=== PATIENT | male | born 1965 | race Caucasian/White ===

== ENCOUNTER 2018-05-06 08:48 | Inpatient (IN) | payer OTHER ==
--- OUTSIDE RECORDS SUMMARY | 2018-05-06 08:50 | XMS REPORT ---
:1965 Author Organization [facility] Address [address] [place] [address] Dr. Jon [address] [place] [id number] Care Team Providers Name Role Phone WYATT PERKINS Unavailable Unavailable Problems This patient has no known problems. Allergies, Adverse Reactions, Alerts This patient has no known allergies or adverse reactions. Medications This patient has no known medications. Results Test Description Test Time Test Comments Text Results Atomic Results Result Comments AFB CULTURE + SMEAR 2017-12-09 13:17:00 Test Item Value Reference Range Comments CULTURE (BEAKER) (test msrd=3016) No acid-fast bacilli isolated in 42 days AFB SMEAR (BEAKER) (test obhr=461) No acid fast bacilli seen FUNGUS CULTURE + [id number] 11:30:00 Test Item Value Reference Range Comments CULTURE (BEAKER) (test No fungus isolated in 28 days nnlk=6432) FUNGUS SMEAR (BEAKER) (test No fungi seen njif=5328) ANAEROBIC [id number] 04:39:00 Test Item Value Reference Range Comments CULTURE (BEAKER) (test nhxr=4865) 1+ Finegoldia magna SURGICALLY OBTAINED CULTURE + GRAM [id number] 10:26:00 Test Item Value Reference Range Comments CULTURE (BEAKER) (test gyko=1869) Amikacin (test code=1) Ampicillin + Sulbactam (test code=6) Aztreonam (test code=32) Cefepime (test code=51) Cefoxitin (test code=68) Ceftazidime (test code=27) Ceftriaxone (test code=52) Ertapenem (test code=38) Gentamicin (test code=18) Levofloxacin (test code=22) Meropenem (test code=34) Nitrofurantoin (test code=23) Piperacillin + Tazobactam (test code=29) Tetracycline (test code=2) Tobramycin (test code=25) Trimethoprim + Sulfamethoxazole (test code=47) CULTURE (BEAKER) (test 1+ Proteus mirabilis mzti=4698) GRAM STAIN RESULT (BEAKER) 4+ WBCs (test ljea=3760) GRAM STAIN RESULT (BEAKER) <1+ gram positive (test pjex=813673) cocci in pairs BLOOD [id number] 05:02:00 Test Item Value Reference Range Comments CULTURE (BEAKER) (test dlgp=2908) No growth in 5 days BLOOD [id number] 05:02:00 Test Item Value Reference Range Comments CULTURE (BEAKER) (test rske=7768) No growth in 5 days POCT-GLUCOSE [id number] 12:56:00 Test Item Value Reference Range Comments POC-GLUCOSE METER (BEAKER) 127 mg/dL 70-110 TESTED AT [facility] [address] [facility] (test nlbb=3669) [facility] [address] TISSUE [id number] 11:24:00Surgical Pathology Report Case: [id number] Authorizing Provider: Oniel Dejesus MD Collected: 10/25/2017 1145 Ordering Location: [address] Received: 10/27/2017 0729 Service Pathologist: Sherin Lui MD Specimen: Soft Tissue, Other, Neck Cystic Wall A. NECK, CYST WALL, EXCISION:- INFLAMED CYST WALL - NEGATIVE FOR MALIGNANCY Signing Pathologist Direct Phone Line: [phone] signed by Sherin Lui MD on at 11:24 [id number] neck abscessNeck cystic wallThe specimen is received in a formalin-filled container labeled with the patient's information and labeled "neck cystic wall" and consists of an irregular fragment of membreno- whyte hemorrhagic tissue measuring 0.4 x 0.3 x 0.2 cm, submitted entirely in A1. CG/ew Sections show cyst wall composed of Fibrocollagenous and neural tissue with acute and chronic inflammation. No cyst lining (or) keratin (or) giant cell reaction is identified.CALCIUM, [id number] 06:20:00 Test Item Value Reference Range Comments CALCIUM IONIZED (BEAKER) (test wcta=482) 0.93 mmol/L 1.12-1.27 PH, BLOOD (BEAKER) (test khbb=0938) 7.36 [id number] 05:23:00 Test Item Value Reference Range Comments PHOSPHORUS (BEAKER) (test jkxj=329) 3.2 mg/dL 2.3-4.7 [id number] 05:23:00 Test Item Value Reference Range Comments MAGNESIUM (BEAKER) (test rylu=754) 1.8 mg/dL 1.6-2.6 BASIC METABOLIC [id number] 05:23:00 Test Item Value Reference Range Comments SODIUM (BEAKER) (test 137 meq/L 136-145 asrt=383) POTASSIUM (BEAKER) (test 3.6 meq/L 3.5-5.1 jirs=739) CHLORIDE (BEAKER) (test 100 meq/L 98-107 sqpv=331) CO2 (BEAKER) (test 29 meq/L 22-29 zmqd=064) BLOOD UREA NITROGEN 17 mg/dL 7-21 (BEAKER) (test gkrj=427) CREATININE (BEAKER) (test 1.03 mg/dL 0.57-1.25 rofz=242) GLUCOSE RANDOM (BEAKER) 125 mg/dL 70-105 (test dltl=745) CALCIUM (BEAKER) (test 9.2 mg/dL 8.4-10.2 jpjz=898) EGFR (BEAKER) (test 76 mL/min/1.73 sq m ESTIMATED GFR IS NOT kbnw=7180) ACCURATE CREATININE CLEARANCE IN PREDICTING GLOMERULAR FILTRATION RATE. ESTIMATED GFR IS NOT APPLICABLE FOR DIALYSIS PATIENTS. CBC W/PLT COUNT & AUTO [id number] 05:07:00 Test Item Value Reference Range Comments WHITE BLOOD CELL COUNT (BEAKER) (test hpwc=425) 3.9 K/ L 3.5-10.5 RED BLOOD CELL COUNT (BEAKER) (test kdlj=940) 4.12 M/ L 4.63-6.08 HEMOGLOBIN (BEAKER) (test gisu=249) 11.4 GM/DL 13.7-17.5 HEMATOCRIT (BEAKER) (test nuuw=656) 37.0 % 40.1-51.0 MEAN CORPUSCULAR VOLUME (BEAKER) (test daqi=504) 89.8 fL 79.0-92.2 MEAN CORPUSCULAR HEMOGLOBIN (BEAKER) (test 27.7 pg 25.7-32.2 dhvq=859) MEAN CORPUSCULAR HEMOGLOBIN CONC (BEAKER) (test 30.8 GM/DL 32.3-36.5 fovq=870) RED CELL DISTRIBUTION WIDTH (BEAKER) (test 15.8 % 11.6-14.4 hjlq=366) PLATELET COUNT (BEAKER) (test ugyn=023) 92 K/CU MM 150-450 MEAN PLATELET VOLUME (BEAKER) (test nsqy=860) 11.6 fL 9.4-12.4 NUCLEATED RED BLOOD CELLS (BEAKER) (test 0 /100 WBC 0-0 jkpx=227) NEUTROPHILS RELATIVE PERCENT (BEAKER) (test 60 % aqyy=926) LYMPHOCYTES RELATIVE PERCENT (BEAKER) (test 22 % uoyf=402) MONOCYTES RELATIVE PERCENT (BEAKER) (test 14 % gamn=800) EOSINOPHILS RELATIVE PERCENT (BEAKER) (test 4 % oohy=981) BASOPHILS RELATIVE PERCENT (BEAKER) (test 1 % fsne=751) NEUTROPHILS ABSOLUTE COUNT (BEAKER) (test 2.29 K/ L 1.78-5.38 vkef=680) LYMPHOCYTES ABSOLUTE COUNT (BEAKER) (test 0.83 K/ L 1.32-3.57 dsfx=343) MONOCYTES ABSOLUTE COUNT (BEAKER) (test pual=010) 0.54 K/ L 0.30-0.82 EOSINOPHILS ABSOLUTE COUNT (BEAKER) (test 0.15 K/ L 0.04-0.54 mmck=384) BASOPHILS ABSOLUTE COUNT (BEAKER) (test liol=521) 0.02 K/ L 0.01-0.08 IMMATURE GRANULOCYTES-RELATIVE PERCENT (BEAKER) 1 % 0-1 (test vkls=4641) POCT-GLUCOSE [id number] 21:34:00 Test Item Value Reference Range Comments POC-GLUCOSE METER (BEAKER) 164 mg/dL 70-110 TESTED AT [address] (test hiiw=7065) [facility] [address] POCT-GLUCOSE [id number] 17:56:00 Test Item Value Reference Range Comments POC-GLUCOSE METER (BEAKER) 119 mg/dL 70-110 TESTED AT [address] (test jecl=0263) [facility] [address] SPIN/CONCENTRATION [id number] 14:02:00 Test Item Value Reference Range Comments CONCENTRATION CHARGED (BEAKER) (test obzu=9199) Done POCT-GLUCOSE [id number] 12:51:00 Test Item Value Reference Range Comments POC-GLUCOSE METER (BEAKER) 133 mg/dL 70-110 TESTED AT [place] [id number] [facility] (test nfxz=5820) [facility] [address] POCT-GLUCOSE [id number] 08:32:00 Test Item Value Reference Range Comments POC-GLUCOSE METER (BEAKER) 139 mg/dL 70-110 TESTED AT [address] (test uzuj=8225) [facility] [address] CALCIUM, [id number] 06:56:00 Test Item Value Reference Range Comments CALCIUM IONIZED (BEAKER) (test yxnm=214) 0.82 mmol/L 1.12-1.27 PH, BLOOD (BEAKER) (test zeho=1404) 7.34 [id number] 05:16:00 Test Item Value Reference Range Comments PHOSPHORUS (BEAKER) (test cftr=117) 3.5 mg/dL 2.3-4.7 [id number] 05:16:00 Test Item Value Reference Range Comments MAGNESIUM (BEAKER) (test vqop=770) 1.9 mg/dL 1.6-2.6 BASIC METABOLIC [id number] 05:16:00 Test Item Value Reference Range Comments SODIUM (BEAKER) (test 136 meq/L 136-145 bdsk=488) POTASSIUM (BEAKER) (test 3.7 meq/L 3.5-5.1 qzrz=967) CHLORIDE (BEAKER) (test 100 meq/L 98-107 nyho=837) CO2 (BEAKER) (test 27 meq/L 22-29 eybf=911) BLOOD UREA NITROGEN 17 mg/dL 7-21 (BEAKER) (test zcwu=372) CREATININE (BEAKER) (test 1.16 mg/dL 0.57-1.25 zgwc=649) GLUCOSE RANDOM (BEAKER) 134 mg/dL 70-105 (test lvie=863) CALCIUM (BEAKER) (test 9.0 mg/dL 8.4-10.2 kaqp=105) EGFR (BEAKER) (test 67 mL/min/1.73 sq m ESTIMATED GFR IS NOT zpgh=6075) ACCURATE CREATININE CLEARANCE IN PREDICTING GLOMERULAR FILTRATION RATE. ESTIMATED GFR IS NOT APPLICABLE FOR DIALYSIS PATIENTS. Specimen slightly ictericCBC W/PLT COUNT & AUTO [id number] 04:50 :00 Test Item Value Reference Range Comments WHITE BLOOD CELL COUNT (BEAKER) (test dbgm=649) 4.7 K/ L 3.5-10.5 RED BLOOD CELL COUNT (BEAKER) (test peky=409) 4.18 M/ L 4.63-6.08 HEMOGLOBIN (BEAKER) (test miqr=633) 11.6 GM/DL 13.7-17.5 HEMATOCRIT (BEAKER) (test dmov=692) 37.8 % 40.1-51.0 MEAN CORPUSCULAR VOLUME (BEAKER) (test eemy=642) 90.4 fL 79.0-92.2 MEAN CORPUSCULAR HEMOGLOBIN (BEAKER) (test 27.8 pg 25.7-32.2 eirr=591) MEAN CORPUSCULAR HEMOGLOBIN CONC (BEAKER) (test 30.7 GM/DL 32.3-36.5 wded=586) RED CELL DISTRIBUTION WIDTH (BEAKER) (test 15.8 % 11.6-14.4 xwmq=612) PLATELET COUNT (BEAKER) (test ekeq=925) 88 K/CU MM 150-450 MEAN PLATELET VOLUME (BEAKER) (test ekkq=602) 12.1 fL 9.4-12.4 NUCLEATED RED BLOOD CELLS (BEAKER) (test 0 /100 WBC 0-0 hpas=062) NEUTROPHILS RELATIVE PERCENT (BEAKER) (test 59 % pgdl=275) LYMPHOCYTES RELATIVE PERCENT (BEAKER) (test 21 % fpam=333) MONOCYTES RELATIVE PERCENT (BEAKER) (test 15 % spvo=210) EOSINOPHILS RELATIVE PERCENT (BEAKER) (test 4 % yqes=984) BASOPHILS RELATIVE PERCENT (BEAKER) (test 0 % qmtp=996) NEUTROPHILS ABSOLUTE COUNT (BEAKER) (test 2.79 K/ L 1.78-5.38 mfoj=174) LYMPHOCYTES ABSOLUTE COUNT (BEAKER) (test 0.98 K/ L 1.32-3.57 ddmb=053) MONOCYTES ABSOLUTE COUNT (BEAKER) (test tnwd=544) 0.73 K/ L 0.30-0.82 EOSINOPHILS ABSOLUTE COUNT (BEAKER) (test 0.19 K/ L 0.04-0.54 jmnw=099) BASOPHILS ABSOLUTE COUNT (BEAKER) (test gvtt=025) 0.02 K/ L 0.01-0.08 IMMATURE GRANULOCYTES-RELATIVE PERCENT (BEAKER) 0 % 0-1 (test sldl=8377) POCT-GLUCOSE [id number] 21:14:00 Test Item Value Reference Range Comments POC-GLUCOSE METER (BEAKER) 169 mg/dL 70-110 TESTED AT [address] (test gqqw=3276) [place] [id number] POCT-GLUCOSE [id number] 19:08:00 Test Item Value Reference Range Comments POC-GLUCOSE METER (BEAKER) 146 mg/dL 70-110 TESTED AT [address] (test fptj=3393) [place] [id number] POCT-GLUCOSE [id number] 13:25:00 Test Item Value Reference Range Comments POC-GLUCOSE METER (BEAKER) 141 mg/dL 70-110 TESTED AT [address] (test ghrj=3297) [place] [id number] POCT-GLUCOSE [id number] 08:18:00 Test Item Value Reference Range Comments POC-GLUCOSE METER (BEAKER) 133 mg/dL 70-110 TESTED AT [address] (test ispn=7694) [place] [id number] CBC W/PLT COUNT & AUTO [id number] 06:08:00 Test Item Value Reference Range Comments WHITE BLOOD CELL COUNT (BEAKER) (test jztz=957) 4.9 K/ L 3.5-10.5 RED BLOOD CELL COUNT (BEAKER) (test peyo=559) 3.92 M/ L 4.63-6.08 HEMOGLOBIN (BEAKER) (test fyxy=376) 11.0 GM/DL 13.7-17.5 HEMATOCRIT (BEAKER) (test iktz=978) 35.2 % 40.1-51.0 MEAN CORPUSCULAR VOLUME (BEAKER) (test lyfq=965) 89.8 fL 79.0-92.2 MEAN CORPUSCULAR HEMOGLOBIN (BEAKER) (test 28.1 pg 25.7-32.2 izqr=712) MEAN CORPUSCULAR HEMOGLOBIN CONC (BEAKER) (test 31.3 GM/DL 32.3-36.5 inpa=724) RED CELL DISTRIBUTION WIDTH (BEAKER) (test 16.0 % 11.6-14.4 iobi=513) PLATELET COUNT (BEAKER) (test fnkm=293) 80 K/CU MM 150-450 MEAN PLATELET VOLUME (BEAKER) (test jonl=810) 11.4 fL 9.4-12.4 NUCLEATED RED BLOOD CELLS (BEAKER) (test 0 /100 WBC 0-0 nfjw=481) NEUTROPHILS RELATIVE PERCENT (BEAKER) (test 62 % tvym=743) LYMPHOCYTES RELATIVE PERCENT (BEAKER) (test 19 % ufux=572) MONOCYTES RELATIVE PERCENT (BEAKER) (test 15 % bvnq=162) EOSINOPHILS RELATIVE PERCENT (BEAKER) (test 3 % hhlm=053) BASOPHILS RELATIVE PERCENT (BEAKER) (test 0 % vyse=645) NEUTROPHILS ABSOLUTE COUNT (BEAKER) (test 3.03 K/ L 1.78-5.38 pusy=483) LYMPHOCYTES ABSOLUTE COUNT (BEAKER) (test 0.92 K/ L 1.32-3.57 mdee=900) MONOCYTES ABSOLUTE COUNT (BEAKER) (test qykj=197) 0.74 K/ L 0.30-0.82 EOSINOPHILS ABSOLUTE COUNT (BEAKER) (test 0.16 K/ L 0.04-0.54 vgsh=127) BASOPHILS ABSOLUTE COUNT (BEAKER) (test qnur=879) 0.01 K/ L 0.01-0.08 IMMATURE GRANULOCYTES-RELATIVE PERCENT (BEAKER) 1 % 0-1 (test lvrn=2865) [id number] 05:13:00 Test Item Value Reference Range Comments PHOSPHORUS (BEAKER) (test afms=375) 3.4 mg/dL 2.3-4.7 [id number] 05:13:00 Test Item Value Reference Range Comments MAGNESIUM (BEAKER) (test eqhz=739) 1.9 mg/dL 1.6-2.6 BASIC METABOLIC [id number] 05:13:00 Test Item Value Reference Range Comments SODIUM (BEAKER) (test 136 meq/L 136-145 ossi=701) POTASSIUM (BEAKER) (test 3.6 meq/L 3.5-5.1 ouqv=133) CHLORIDE (BEAKER) (test 102 meq/L 98-107 tixg=106) CO2 (BEAKER) (test 26 meq/L 22-29 tenm=741) BLOOD UREA NITROGEN 15 mg/dL 7-21 (BEAKER) (test ximm=853) CREATININE (BEAKER) (test 1.07 mg/dL 0.57-1.25 vsdp=820) GLUCOSE RANDOM (BEAKER) 134 mg/dL 70-105 (test zgcn=403) CALCIUM (BEAKER) (test 8.5 mg/dL 8.4-10.2 dupr=346) EGFR (BEAKER) (test 73 mL/min/1.73 sq m ESTIMATED GFR IS NOT jocn=8935) ACCURATE CREATININE CLEARANCE IN PREDICTING GLOMERULAR FILTRATION RATE. ESTIMATED GFR IS NOT APPLICABLE FOR DIALYSIS PATIENTS. Specimen slightly ictericHEPATIC FUNCTION [id number] 05:13:00 Test Item Value Reference Range Comments TOTAL PROTEIN (BEAKER) (test eqdp=774) 6.8 gm/dL 6.0-8.3 ALBUMIN (BEAKER) (test kejy=2789) 3.0 g/dL 3.5-5.0 BILIRUBIN TOTAL (BEAKER) (test ecnm=628) 2.9 mg/dL 0.2-1.2 BILIRUBIN DIRECT (BEAKER) (test fneb=676) 1.1 mg/dL 0.1-0.5 ALKALINE PHOSPHATASE (BEAKER) (test xuyp=301) 63 U/L 40-150 AST (SGOT) (BEAKER) (test lkso=691) 33 U/L 5-34 ALT (SGPT) (BEAKER) (test xbtp=810) 16 U/L 6-55 Specimen slightly ictericVANCOMYCIN LEVEL, [id number] 05:05:00 Test Item Value Reference Range Comments VANCOMYCIN TROUGH (BEAKER) (test qdpj=956) 20.0 ug/mL 10.0-20.0 Please draw 30 minutes prior to vancomycin due time. Do not administer if vancomycin trough is >20 mcg/mL. Thank you!POCT-GLUCOSE [id number] 20:11 :00 Test Item Value Reference Range Comments POC-GLUCOSE METER (BEAKER) 153 mg/dL 70-110 TESTED AT [facility] [address] [facility] (test xkgh=8178) [facility] [address] POCT-GLUCOSE [id number] 16:31:00 Test Item Value Reference Range Comments POC-GLUCOSE METER (BEAKER) 168 mg/dL 70-110 TESTED AT [facility] [address] [facility] (test tlnq=7390) [facility] [address] POCT-GLUCOSE [id number] 12:39:00 Test Item Value Reference Range Comments POC-GLUCOSE METER (BEAKER) 161 mg/dL 70-110 TESTED AT [facility] [address] [facility] (test tcdv=3913) [facility] [address] T4, [id number] 09:05:00 Test Item Value Reference Range Comments FREE T4 (BEAKER) (test rhfu=762) 1.00 ng/dL 0.70-1.48 T3, [id number] 09:05:00 Test Item Value Reference Range Comments T3 FREE (BEAKER) (test iujb=408) 2.33 pg/mL 1.71-3.71 CALCIUM, [id number] 07:37:00 Test Item Value Reference Range Comments CALCIUM IONIZED (BEAKER) (test ieru=786) 0.97 mmol/L 1.12-1.27 PH, BLOOD (BEAKER) (test plmd=6720) 7.38 [id number] 06:53:00 Test Item Value Reference Range Comments PHOSPHORUS (BEAKER) (test oaeu=080) 2.8 mg/dL 2.3-4.7 [id number] 06:53:00 Test Item Value Reference Range Comments MAGNESIUM (BEAKER) (test pndd=371) 1.6 mg/dL 1.6-2.6 BASIC METABOLIC [id number] 06:53:00 Test Item Value Reference Range Comments SODIUM (BEAKER) (test 133 meq/L 136-145 hlxf=286) POTASSIUM (BEAKER) (test 3.9 meq/L 3.5-5.1 xpvh=621) CHLORIDE (BEAKER) (test 101 meq/L 98-107 ojeb=903) CO2 (BEAKER) (test 25 meq/L 22-29 bxvm=645) BLOOD UREA NITROGEN 6 mg/dL 7-21 (BEAKER) (test zplm=176) CREATININE (BEAKER) (test 0.65 mg/dL 0.57-1.25 eddv=810) GLUCOSE RANDOM (BEAKER) 148 mg/dL 70-105 (test ezct=712) CALCIUM (BEAKER) (test 8.3 mg/dL 8.4-10.2 gbrt=880) EGFR (BEAKER) (test 130 mL/min/1.73 sq m ESTIMATED GFR IS NOT yjzs=7272) ACCURATE CREATININE CLEARANCE IN PREDICTING GLOMERULAR FILTRATION RATE. ESTIMATED GFR IS NOT APPLICABLE FOR DIALYSIS PATIENTS. Specimen slightly ictericHEPATIC FUNCTION [id number] 06:53:00 Test Item Value Reference Range Comments TOTAL PROTEIN (BEAKER) (test ficn=846) 7.1 gm/dL 6.0-8.3 ALBUMIN (BEAKER) (test zoqr=3529) 3.2 g/dL 3.5-5.0 BILIRUBIN TOTAL (BEAKER) (test ryxk=773) 3.2 mg/dL 0.2-1.2 BILIRUBIN DIRECT (BEAKER) (test susx=218) 0.9 mg/dL 0.1-0.5 ALKALINE PHOSPHATASE (BEAKER) (test dqrf=800) 66 U/L 40-150 AST (SGOT) (BEAKER) (test ceht=392) 27 U/L 5-34 ALT (SGPT) (BEAKER) (test cyut=786) 18 U/L 6-55 Specimen slightly ictericCBC W/PLT COUNT & AUTO [id number] 05:17 :00 Test Item Value Reference Range Comments WHITE BLOOD CELL COUNT (BEAKER) (test ayhm=647) 5.6 K/ L 3.5-10.5 RED BLOOD CELL COUNT (BEAKER) (test jgcm=361) 4.19 M/ L 4.63-6.08 HEMOGLOBIN (BEAKER) (test bpxw=212) 11.7 GM/DL 13.7-17.5 HEMATOCRIT (BEAKER) (test wjoe=388) 37.6 % 40.1-51.0 MEAN CORPUSCULAR VOLUME (BEAKER) (test jwxj=249) 89.7 fL 79.0-92.2 MEAN CORPUSCULAR HEMOGLOBIN (BEAKER) (test 27.9 pg 25.7-32.2 eftv=950) MEAN CORPUSCULAR HEMOGLOBIN CONC (BEAKER) (test 31.1 GM/DL 32.3-36.5 pszj=271) RED CELL DISTRIBUTION WIDTH (BEAKER) (test 15.9 % 11.6-14.4 zsla=700) PLATELET COUNT (BEAKER) (test icxx=928) 83 K/CU MM 150-450 MEAN PLATELET VOLUME (BEAKER) (test psmc=882) 12.1 fL 9.4-12.4 NUCLEATED RED BLOOD CELLS (BEAKER) (test 0 /100 WBC 0-0 dffn=530) NEUTROPHILS RELATIVE PERCENT (BEAKER) (test 69 % qeip=674) LYMPHOCYTES RELATIVE PERCENT (BEAKER) (test 16 % ahsr=339) MONOCYTES RELATIVE PERCENT (BEAKER) (test 12 % dqnr=646) EOSINOPHILS RELATIVE PERCENT (BEAKER) (test 2 % xsqe=349) BASOPHILS RELATIVE PERCENT (BEAKER) (test 0 % yvfm=566) NEUTROPHILS ABSOLUTE COUNT (BEAKER) (test 3.86 K/ L 1.78-5.38 lmxv=960) LYMPHOCYTES ABSOLUTE COUNT (BEAKER) (test 0.91 K/ L 1.32-3.57 wvya=149) MONOCYTES ABSOLUTE COUNT (BEAKER) (test lkcq=521) 0.64 K/ L 0.30-0.82 EOSINOPHILS ABSOLUTE COUNT (BEAKER) (test 0.11 K/ L 0.04-0.54 cftj=611) BASOPHILS ABSOLUTE COUNT (BEAKER) (test rpbq=169) 0.02 K/ L 0.01-0.08 IMMATURE GRANULOCYTES-RELATIVE PERCENT (BEAKER) 1 % 0-1 (test otts=4899) POCT-GLUCOSE [id number] 21:13:00 Test Item Value Reference Range Comments POC-GLUCOSE METER (BEAKER) 157 mg/dL 70-110 TESTED AT [facility] [address] [facility] (test xnic=1111) [place] [address] POCT-GLUCOSE [id number] 18:28:00 Test Item Value Reference Range Comments POC-GLUCOSE METER (BEAKER) 159 mg/dL 70-110 TESTED AT [facility] [address] [facility] (test ecmd=0491) [place] [address] U/S, [id number] 17:36:00Reason for exam:->posterior and right lateral neck, eval concern for infected cyst vs painful massFINAL REPORT TECHNIQUE: Focused grayscale ultrasound of the posterior neck. INDICATION: 51-year-old man with mass. COMPARISON: None. FINDINGS:5.1 x 2.9 x 2.9 cm hypoechoic lesionin the soft tissues of the posterior neck at the midline with posterior acoustic enhancement, internal echoes, a thick internal septation, and possible mural nodular component. IMPRESSION:5.1 cm complex cystic lesion in the soft tissues of the posterior neck with thick internal septation and possible mural nodular component. Differential considerations include abscess, hematoma, and necrotic/complex cystic mass. RECOMMENDATION:CT may be obtained for further characterization. Signed: Yokasta Cerna MDReport Verified Date/Time: 10/24/2017 17:36:55 Reading Location: [address] Ultrasound Reading Room CREATINE KINASE (CK), TOTAL AND [id number] 13:13:00 Test Item Value Reference Range Comments CREATINE KINASE TOTAL (BEAKER) (test gilf=161) 122 U/L 29-200 CREATINE KINASE-MB (BEAKER) (test xnvz=480) 1.0 ng/mL 0.0-6.6 CREATINE KINASE-MB INDEX (BEAKER) (test rlbp=378) 0.8 % CK-MB Reference Range:<6.7 Normal6.7-10.0 Borderline>10.0 AbnormalTROPONIN [id number] 13:13:00 Test Item Value Reference Range Comments TROPONIN I (BEAKER) (test gkyk=793) < ng/mL 0.00-0.03 Troponin I (TnI) levels must be interpreted in the context of the presenting symptoms and the clinical findings. Elevated TnI levels indicate myocardial damage, but are not specific for ischemic heart disease. Elevated TnI levels are seen in patients with other cardiac conditions (including myocarditis and congestive heart failure), and slight TnI elevations occur in patients with other conditions, including sepsis, renal failure, acidosis, acute neurological disease, and persistent tachyarrhythmia.HEMOGLOBIN [id number] 13:09:00 Test Item Value Reference Range Comments HEMOGLOBIN A1C (BEAKER) (test amoh=446) 9.0 % 4.3-6.1 RAD, CHEST, 1 VIEW, NON [id number] 12:58:00Reason for exam:->Right upper chest painShould this be performed at the bedside?->YesFINAL REPORT TECHNIQUE: Frontal chest radiograph dated 10/24/2017. CLINICAL HISTORY: Right upper chest pain COMPARISON STUDY: Chest radiograph dated 2015 FINDINGS: Lungs are clear. No pleural effusion or pneumothorax. Cardiomediastinal silhouette is normal in size. No pulmonary edema. No bone or soft tissue abnormalities are seen. IMPRESSION: Clear lungs. Signed: Sarika Guzmán MDReport Verified Date/Time: 10/24/2017 12:58:39 Reading Location: [facility] Radiology Reading Room CT, BRAIN, WITHOUT [id number] 12:46: 00Reason for exam:->Right arm paresthesiaFINAL REPORT CT head without contrast INDICATION: Right arm paresthesias TECHNIQUE: Axial noncontrast CT images through the head were obtained. This exam was performed according to our departmental dose optimization program which includes automated exposure control, adjustment of the mA and/or kV according to patient size and/or use of iterative reconstruction technique. COMPARISON: None available FINDINGS:There is scatter artifact from large body habitus. With this in mind, no hematoma, extra-axial collection, or mass effect is evident. There are no specific CT findings of acute infarct. Please note that CT is insensitive for early or small infarcts. Intracranial atherosclerotic calcifications are noted. There is no hydrocephalus or midline shift. The visualized sinuses, mastoid air cells, and orbits are unremarkable. There is partially imaged posterior upper neck subcutaneous induration with a prominent lymph node. The calvarium is intact. IMPRESSION: No acute hemorrhage or specific CT findings of acute infarct. Incompletely imaged posterior upper neck subcutaneous induration, possibly inflammatory dermal process. Advise correlation with ordered ultrasound. If there is persistent concern for acute abnormality, MRI is advised. Signed: Mary Pratt MDReport Verified Date /Time: 10/24/2017 12:46:53 Reading Location: [facility] Radiology Reading Room POCT-GLUCOSE [id number] 12:40:00 Test Item Value Reference Range Comments POC-GLUCOSE METER (BEAKER) 156 mg/dL 70-110 TESTED AT [address] (test qxom=4321) [facility] [address] T4, [id number] 12:09:00 Test Item Value Reference Range Comments FREE T4 (BEAKER) (test ztmd=482) 0.95 ng/dL 0.70-1.48 SEDIMENTATION [id number] 10:04:00 Test Item Value Reference Range Comments SEDIMENTATION RATE, ERYTHROCYTE (BEAKER) (test 59 mm/HR 0-20 smdg=518) POCT-GLUCOSE [id number] 09:02:00 Test Item Value Reference Range Comments POC-GLUCOSE METER (BEAKER) 151 mg/dL 70-110 TESTED AT [facility] [address] [facility] (test lqub=1578) [facility] [address] TSH/FREE T4 IF [id number] 07:38:00 Test Item Value Reference Range Comments THYROID STIMULATING HORMONE (BEAKER) (test 0.30 uIU/mL 0.35-4.94 efai=505) [id number] 07:36:00 Test Item Value Reference Range Comments PHOSPHORUS (BEAKER) (test omgr=860) 2.5 mg/dL 2.3-4.7 [id number] 07:36:00 Test Item Value Reference Range Comments MAGNESIUM (BEAKER) (test cauf=111) 1.7 mg/dL 1.6-2.6 BASIC METABOLIC [id number] 07:36:00 Test Item Value Reference Range Comments SODIUM (BEAKER) (test 136 meq/L 136-145 cdpj=958) POTASSIUM (BEAKER) (test 4.0 meq/L 3.5-5.1 crna=089) CHLORIDE (BEAKER) (test 104 meq/L 98-107 lxlr=407) CO2 (BEAKER) (test 25 meq/L 22-29 vnkx=579) BLOOD UREA NITROGEN 8 mg/dL 7-21 (BEAKER) (test lphl=974) CREATININE (BEAKER) (test 0.63 mg/dL 0.57-1.25 juxi=141) GLUCOSE RANDOM (BEAKER) 169 mg/dL 70-105 (test oafe=958) CALCIUM (BEAKER) (test 8.5 mg/dL 8.4-10.2 azlu=583) EGFR (BEAKER) (test 135 mL/min/1.73 sq m ESTIMATED GFR IS NOT jopv=[id number]) ACCURATE CREATININE CLEARANCE IN PREDICTING GLOMERULAR FILTRATION RATE. ESTIMATED GFR IS NOT APPLICABLE FOR DIALYSIS PATIENTS. LIPID [id number] 07:36:00 Test Item Value Reference Range Comments TRIGLYCERIDES (BEAKER) (test oegy=023) 83 mg/dL CHOLESTEROL (BEAKER) (test twuw=758) 129 mg/dL HDL CHOLESTEROL (BEAKER) (test ltbm=444) 29 mg/dL LDL CHOLESTEROL CALCULATED (BEAKER) (test 83 mg/dL kfcj=256) Triglyceride Reference Range: Low Risk <150 Borderline 150- 199 High Risk 200-499 Very High Risk >=500Cholesterol Reference Range: Low Risk <200 Borderline 200-239 High Risk > 240HDL Cholesterol Reference Range: Low Risk >=60 High Risk <40LDL Cholesterol Reference Range: Optimal <100 Near Optimal 100-129 Borderline 130-159 High 160-189 Very High >=190HEPATIC FUNCTION [id number] 07:36:00 Test Item Value Reference Range Comments TOTAL PROTEIN (BEAKER) (test edjz=964) 7.1 gm/dL 6.0-8.3 ALBUMIN (BEAKER) (test rofx=9450) 3.2 g/dL 3.5-5.0 BILIRUBIN TOTAL (BEAKER) (test zlpo=382) 1.9 mg/dL 0.2-1.2 BILIRUBIN DIRECT (BEAKER) (test uyfs=210) 0.7 mg/dL 0.1-0.5 ALKALINE PHOSPHATASE (BEAKER) (test mboh=455) 73 U/L 40-150 AST (SGOT) (BEAKER) (test prbs=710) 29 U/L 5-34 ALT (SGPT) (BEAKER) (test ictu=919) 21 U/L 6-55 CREATINE KINASE (CK), TOTAL AND [id number] 07:36:00 Test Item Value Reference Range Comments CREATINE KINASE TOTAL (BEAKER) (test vdlj=835) 106 U/L 29-200 CREATINE KINASE-MB (BEAKER) (test cjya=503) 0.8 ng/mL 0.0-6.6 CREATINE KINASE-MB INDEX (BEAKER) (test vfrw=046) 0.8 % CK-MB Reference Range:<6.7 Normal6.7-10.0 Borderline>10.0 AbnormalTROPONIN [id number] 07:31:00 Test Item Value Reference Range Comments TROPONIN I (BEAKER) (test zuju=353) < ng/mL 0.00-0.03 Troponin I (TnI) levels must be interpreted in the context of the presenting symptoms and the clinical findings. Elevated TnI levels indicate myocardial damage, but are not specific for ischemic heart disease. Elevated TnI levels are seen in patients with other cardiac conditions (including myocarditis and congestive heart failure), and slight TnI elevations occur in patients with other conditions, including sepsis, renal failure, acidosis, acute neurological disease, and persistent tachyarrhythmia.BUN AND [id number] 07:26:00 Test Item Value Reference Range Comments BLOOD UREA NITROGEN 9 mg/dL 7-21 (BEAKER) (test uyiq=592) CREATININE (BEAKER) (test 0.64 mg/dL 0.57-1.25 tyyg=344) EGFR (BEAKER) (test 132 mL/min/1.73 sq m ESTIMATED GFR IS NOT nlja=1467) ACCURATE CREATININE CLEARANCE IN PREDICTING GLOMERULAR FILTRATION RATE. ESTIMATED GFR IS NOT APPLICABLE FOR DIALYSIS PATIENTS. Specimen slightly ictericCBC W/PLT COUNT & AUTO [id number] 05:54 :00 Test Item Value Reference Range Comments WHITE BLOOD CELL COUNT (BEAKER) (test vbcu=893) 6.1 K/ L 3.5-10.5 RED BLOOD CELL COUNT (BEAKER) (test gtog=956) 4.05 M/ L 4.63-6.08 HEMOGLOBIN (BEAKER) (test grhv=372) 11.3 GM/DL 13.7-17.5 HEMATOCRIT (BEAKER) (test npwz=984) 35.8 % 40.1-51.0 MEAN CORPUSCULAR VOLUME (BEAKER) (test iptp=565) 88.4 fL 79.0-92.2 MEAN CORPUSCULAR HEMOGLOBIN (BEAKER) (test 27.9 pg 25.7-32.2 gvca=422) MEAN CORPUSCULAR HEMOGLOBIN CONC (BEAKER) (test 31.6 GM/DL 32.3-36.5 efdb=336) RED CELL DISTRIBUTION WIDTH (BEAKER) (test 15.8 % 11.6-14.4 foph=373) PLATELET COUNT (BEAKER) (test bilz=749) 87 K/CU MM 150-450 MEAN PLATELET VOLUME (BEAKER) (test bsya=551) 12.5 fL 9.4-12.4 NUCLEATED RED BLOOD CELLS (BEAKER) (test 0 /100 WBC 0-0 ciwb=646) NEUTROPHILS RELATIVE PERCENT (BEAKER) (test 64 % ksdg=875) LYMPHOCYTES RELATIVE PERCENT (BEAKER) (test 21 % cqtq=454) MONOCYTES RELATIVE PERCENT (BEAKER) (test 13 % vrcg=376) EOSINOPHILS RELATIVE PERCENT (BEAKER) (test 1 % gwrx=443) BASOPHILS RELATIVE PERCENT (BEAKER) (test 0 % svjg=204) NEUTROPHILS ABSOLUTE COUNT (BEAKER) (test 3.91 K/ L 1.78-5.38 afku=912) LYMPHOCYTES ABSOLUTE COUNT (BEAKER) (test 1.27 K/ L 1.32-3.57 sdzq=243) MONOCYTES ABSOLUTE COUNT (BEAKER) (test rclr=206) 0.78 K/ L 0.30-0.82 EOSINOPHILS ABSOLUTE COUNT (BEAKER) (test 0.07 K/ L 0.04-0.54 hsic=028) BASOPHILS ABSOLUTE COUNT (BEAKER) (test mufn=312) 0.02 K/ L 0.01-0.08 IMMATURE GRANULOCYTES-RELATIVE PERCENT (BEAKER) 0 % 0-1 (test evtn=8576) CREATINE KINASE (CK), TOTAL AND [id number] 00:32:00 Test Item Value Reference Range Comments CREATINE KINASE TOTAL (BEAKER) (test syir=666) 113 U/L 29-200 CREATINE KINASE-MB (BEAKER) (test anak=802) 1.1 ng/mL 0.0-6.6 CREATINE KINASE-MB INDEX (BEAKER) (test ekdw=609) 1.0 % CK-MB Reference Range:<6.7 Normal6.7-10.0 Borderline>10.0 AbnormalTROPONIN [id number] 00:32:00 Test Item Value Reference Range Comments TROPONIN I (BEAKER) (test twjs=935) 0.01 ng/mL 0.00-0.03 Troponin I (TnI) levels must be interpreted in the context of the presenting symptoms and the clinical findings. Elevated TnI levels indicate myocardial damage, but are not specific for ischemic heart disease. Elevated TnI levels are seen in patients with other cardiac conditions (including myocarditis and congestive heart failure), and slight TnI elevations occur in patients with other conditions, including sepsis, renal failure, acidosis, acute neurological disease, and persistent tachyarrhythmia.C-REACTIVE [id number] 00:25:00 Test Item Value Reference Range Comments C-REACTIVE PROTEIN (LIMAAKER) (test sguw=578) 3.09 mg/dL 0.00-0.50
--- OUTSIDE RECORDS SUMMARY | 2018-05-06 08:50 | XMS REPORT | Clinical Summary ---
:1965 Author Organization [facility] Address [address] [place] [address] Phone Care Team Providers Name Role Phone Unavailable Primary Care Provider Unavailable Allergies Active Allergy Reactions Severity Noted Date Comments Penicillins Other (See Comments) Medium 07/13/2016 Pt does not know. Was told so by his family. Salicylates Low 07/13/2016 Per patient. Current Medications Prescription Sig. Disp. Refills Start Date End Date Status potassium chloride SA Take 20 mEq by Active (K-DUR,KLOR-CON) 20 MEQ mouth daily. tablet sitaGLIPtin (JANUVIA) 50 Take 50 mg by Active MG tablet mouth daily. furosemide (LASIX) 20 MG Take 20 mg by Active tablet mouth 2 (two) times daily. hydroCHLOROthiazide Take 12.5 mg Active (HYDRODIURIL) 12.5 MG by mouth tablet daily. gabapentin (NEURONTIN) Take 1 capsule 60 capsule 0 10/28/2017 Active 100 MG capsule (100 mg total) 9 by mouth 2 (two) times daily. DULoxetine (CYMBALTA) 60 Take 1 capsule 30 tablet 0 07/19/2016 MG capsule (60 mg total) 7 by mouth daily. furosemide (LASIX) 20 MG Take 1 tablet 30 tablet 0 07/19/2016 tablet (20 mg total) 7 by mouth daily. gabapentin (NEURONTIN) Take 1 tablet 90 tablet 0 07/19/2016 600 MG tablet (600 mg total) 7 by mouth 3 (three) times daily. lisinopril-hydrochlorothi Take 1 tablet 30 tablet 0 07/19/2016 azide by mouth 7 (PRINZIDE,ZESTORETIC) daily. 20-12.5 mg per tablet metFORMIN (GLUCOPHAGE) Take 1 tablet 60 tablet 0 07/19/2016 1000 MG tablet (1,000 mg 7 total) by mouth 2 (two) times daily with breakfast and dinner. metoprolol (LOPRESSOR) Take 1 tablet 30 tablet 0 07/19/2016 100 MG tabletIndications: (100 mg total) 7 hypertension by mouth daily. levoFLOXacin (LEVAQUIN) Take 1 tablet 7 tablet 0 10/28/2017 500 MG tablet (500 mg total) 8 by mouth daily for 7 days. Active Problems Problem Noted Date Infected sebaceous cyst, posterior neck s/p I&D (10/25) 10/24/2017 Diabetes mellitus, type 2 (HCC) 10/24/2017 Essential hypertension 10/24/2017 Right arm pain 10/24/2017 Cellulitis, neck 10/23/2017 Morbid obesity (HCC) 07/13/2016 Resolved Problems Problem Noted Date Resolved Date Acute gastric ulcer 07/15/2016 10/24/2017 Hematemesis 07/13/2016 10/24/2017 Melena 07/13/2016 10/24/2017 Anemia due to acute blood loss 07/13/2016 10/24/2017 Hypotension 07/13/2016 10/24/2017 Hypovolemia due to hemorrhage 07/13/2016 10/24/2017 Encounters Date Type Specialty Care Team Description 10/25/2017 Anesthesia Event Bharat Seals MD 10/25/2017 Procedure Pass 10/25/2017 Surgery Oniel Dejesus DEBRIDEMENT/I&D,ALLEN Wei MD ND HEAD/NECK 10/23/2017 - Hospital Encounter General Internal Som Purcell Cellulitis, 10/28/2017 Medicine MD Elinor neck;Type 2 Jeet Liriano diabetes mellitus MD Po with complication, Tiffany, without long-term MD Chris current use of insulin (HCC);Essential hypertension;Morbid obesity (HCC);Right arm pain;Sebaceous cyst after 05/05/2017 Family History Medical History Relation Name Comments Arthritis Brother Alcohol abuse Father Arthritis Father Arthritis Mother Relation Name Status Comments Brother Father Mother Social History Tobacco Use Types Packs/Day Years Used Date Never Smoker Smokeless Tobacco: Never Used Tobacco Cessation: Counseling Given: No Sex Assigned at Date Recorded Not on file Last Filed Vital Signs Vital Sign Reading Time Taken Blood Pressure 137/74 10/28/2017 3:58 PM TAPE SEWING MACHINE OPERATOR Pulse 73 10/28/2017 3:58 PM TAPE SEWING MACHINE OPERATOR Temperature 35.8 C (96.4 F) 10/28/2017 3:58 PM TAPE SEWING MACHINE OPERATOR Respiratory Rate 18 10/28/2017 3:58 PM TAPE SEWING MACHINE OPERATOR Oxygen Saturation 94% 10/28/2017 3:58 PM TAPE SEWING MACHINE OPERATOR Inhaled Oxygen Concentration - - Weight 225.7 kg (497 lb 9.3 oz) 10/28/2017 4:32 AM TAPE SEWING MACHINE OPERATOR Height 203.2 cm (6' 8") 10/24/2017 1:46 AM TAPE SEWING MACHINE OPERATOR Body Mass Index 54.66 10/28/2017 4:32 AM TAPE SEWING MACHINE OPERATOR Plan of Treatment Not on file Procedures Procedure Name Priority Date/Time Associated Diagnosis Comments DEBRIDEMENT/I&D,WOUND 10/25/2017 9:45 AM POSTERIOR NECK ABSCESS HEAD/NECK TAPE SEWING MACHINE OPERATOR Special Needs (REQ TF) after 05/05/2017 Results EKG-SCANNED (10/30/2017 10:50 AM)POC-Glucose meter (10/28/2017 12:53 PM)Only the most recent of16 resultswithin the time period is included. Component Value Ref Range POC-Glucose Meter 127 (H)Comment: TESTED AT [address] 70 - 110 mg/[place] [address] Specimen Performing Laboratory Blood [address] [address] Calcium, Ionized (10/28/2017 4:38 AM)Only the most recent of3 resultswithin the time period is included. Component Value Ref Range Calcium, Ion 0.93 (L) 1.12 - 1.27 mmol/L pH, Blood 7.36 Specimen Performing Laboratory Blood [address] [address] CBC with platelet count + automated diff (10/28/2017 4:38 AM)Only the most recent of5 resultswithin the time period is included. Component Value Ref Range WBC 3.9 3.5 - 10.5 K/L RBC 4.12 (L) 4.63 - 6.08 M/L Hemoglobin 11.4 (L) 13.7 - 17.5 GM/DL Hematocrit 37.0 (L) 40.1 - 51.0 % MCV 89.8 79.0 - 92.2 fL MCH 27.7 25.7 - 32.2 pg MCHC 30.8 (L) 32.3 - 36.5 GM/DL RDW 15.8 (H) 11.6 - 14.4 % Platelets 92 (L) 150 - 450 K/CU MM MPV 11.6 9.4 - 12.4 fL nRBC 0 0 - 0 /100 WBC % Neutros 60 % % Lymphs 22 % % Monos 14 % % Eos 4 % % Baso 1 % # Neutros 2.29 1.78 - 5.38 K/L # Lymphs 0.83 (L) 1.32 - 3.57 K/L # Monos 0.54 0.30 - 0.82 K/L # Eos 0.15 0.04 - 0.54 K/L # Baso 0.02 0.01 - 0.08 K/L Immature Granulocytes-Relative 1 0 - 1 % Specimen Performing Laboratory Blood [address] [address] CBC with platelet count + automated diff (10/28/2017 4:38 AM)Only the most recent of5 resultswithin the time period is included. Specimen Performing Laboratory Blood Narrative The following orders were created for panel order CBC with platelet count + automated diff. Procedure Abnormality Status --------- ------ CBC with platelet count ...[[id number]]AbnormalFinal result Please view results for these tests on the individual orders. Phosphorus (10/28/2017 4:38 AM)Only the most recent of5 resultswithin the time period is included. Component Value Ref Range Phosphorus 3.2 2.3 - 4.7 mg/dL Specimen Performing Laboratory Blood [address] [address] Magnesium (10/28/2017 4:38 AM)Only the most recent of5 resultswithin the time period is included. Component Value Ref Range Magnesium 1.8 1.6 - 2.6 mg/dL Specimen Performing Laboratory Blood [address] [address] Basic Metabolic Panel (10/28/2017 4:38 AM)Only the most recent of5 resultswithin the time period is included. Component Value Ref Range Sodium 137 136 - 145 meq/L Potassium 3.6 3.5 - 5.1 meq/L Chloride 100 98 - 107 meq/L CO2 29 22 - 29 meq/L BUN 17 7 - 21 mg/dL Creatinine 1.03 0.57 - 1.25 mg/dL Glucose 125 (H) 70 - 105 mg/dL Calcium 9.2 8.4 - 10.2 mg/dL EGFR 76Comment: ESTIMATED GFR IS NOT ACCURATE mL/min/1.73 sq m CREATININE CLEARANCE IN PREDICTING GLOMERULAR FILTRATION RATE. ESTIMATED GFR IS NOT APPLICABLE FOR DIALYSIS PATIENTS. Specimen Performing Laboratory Blood [address] [address] Vancomycin level, trough (10/26/2017 4:24 AM) Component Value Ref Range Vancomycin Tr 20.0 10.0 - 20.0 ug/mL Specimen Performing Laboratory Blood - Arm, [address] [address] Narrative Please draw 30 minutes prior to vancomycin due time. Do not administer if vancomycin trough is >20 mcg/mL. Thank you! Hepatic function panel (10/26/2017 4:24 AM)Only the most recent of3 resultswithin the time period is included. Component Value Ref Range Protein, Total 6.8 6.0 - 8.3 gm/dL Albumin 3.0 (L) 3.5 - 5.0 g/dL Total Bilirubin 2.9 (H) 0.2 - 1.2 mg/dL Bilirubin, Direct 1.1 (H) 0.1 - 0.5 mg/dL Alkaline Phosphatase 63 40 - 150 U/L AST 33 5 - 34 U/L ALT 16 6 - 55 U/L Specimen Performing Laboratory Blood - Arm, [address] [address] Narrative Specimen slightly icteric Tissue Exam (10/25/2017 11:45 AM) Component Value Ref Range Case Report Surgical Pathology Report Case: [id number] Authorizing Provider:Oniel Dejesus MDCollected: 10/25/2017 1145 Ordering Location: [address] Received: 10/27/2017 0729 Service Pathologist: Sherin Lui MD Specimen:Soft Tissue, Other, Neck Cystic Wall DIAGNOSIS A. NECK, CYST WALL, EXCISION: - INFLAMED CYST WALL - NEGATIVE FOR MALIGNANCY Signing Pathologist Direct Phone Line: [phone] CPT Code(s) 62981 CLINICAL HISTORY Posterior neck abscess SPECIMEN SOURCE Neck cystic wall GROSS DESCRIPTION The specimen is received in a formalin-filled container labeled with the patient's information and labeled "neck cystic wall" and consists of an irregular fragment of membreno-whyte hemorrhagic tissue measuring 0.4 x 0.3 x 0.2 cm, submitted entirely in A1. CG/ew MICROSCOPIC DESCRIPTION Sections show cyst wall composed of Fibrocollagenous and neural tissue with acute and chronic inflammation. No cyst lining (or) keratin (or) giant cell reaction is identified. Specimen Performing Laboratory Tissue - Soft Tissue, Other [address] [address] AFB culture + smear (10/25/2017 11:40 AM) Component Value Ref Range Result No acid-fast bacilli isolated in 42 days AFB Smear No acid fast bacilli seen Specimen Performing Laboratory Abscess - Neck [address] [address] Anaerobic culture (10/25/2017 11:40 AM) Component Value Ref Range Result Result 1+ Finegoldia magna (A) Specimen Performing Laboratory Abscess - Neck [address] [address] Surgically obtained culture + gram stain (10/25/2017 11:40 AM) Component Value Ref Range Result Result 1+ Proteus mirabilis (A) Gram Stain Result 4+ WBCs Gram Stain Result <1+ gram positive cocci in pairs Specimen Performing Laboratory Abscess - Neck [address] [address] Narrative Organism Antibiotic Method Susceptibility Proteus mirabilis Amikacin <=2: Susceptible Proteus mirabilis Ampicillin + Sulbactam <=2: Susceptible Proteus mirabilis Aztreonam <=1: Susceptible Proteus mirabilis Cefepime <=1: Susceptible Proteus mirabilis Cefoxitin <=4: Susceptible Proteus mirabilis Ceftazidime <=1: Susceptible Proteus mirabilis Ceftriaxone <=1: Susceptible Proteus mirabilis Ertapenem <=0.5: Susceptible Proteus mirabilis Gentamicin <=1: Susceptible Proteus mirabilis Levofloxacin <=0.12: Susceptible Proteus mirabilis Meropenem 1: Susceptible Proteus mirabilis Piperacillin + Tazobactam <=4: Susceptible Proteus mirabilis Tetracycline >=16: Resistant Proteus mirabilis Tobramycin <=1: Susceptible Proteus mirabilis Trimethoprim + Sulfamethoxazole <=20: Susceptible Fungus culture + smear (10/25/2017 11:40 AM) Component Value Ref Range Result No fungus isolated in 28 days Fungus Smear No fungi seen Specimen Performing Laboratory Abscess - Neck [address] [address] SPIN/CONCENTRATION CHARGE (10/25/2017 11:40 AM) Component Value Ref Range Concentration charged Done Specimen Performing Laboratory Abscess - Neck [address] [address] T3, free (10/25/2017 4:31 AM) Component Value Ref Range T3, Free 2.33 1.71 - 3.71 pg/mL Specimen Performing Laboratory Blood - Arm, [address] [address] T4, free (10/25/2017 4:31 AM)Only the most recent of2 resultswithin the time period is included. Component Value Ref Range Free T4 1.00 0.70 - 1.48 ng/dL Specimen Performing Laboratory Blood - Arm, [address] [address] US neck (10/24/2017 4:26 PM) Specimen Performing Laboratory GE [employer] Narrative FINAL REPORT TECHNIQUE: Focused grayscale ultrasound of the posterior neck. INDICATION: 51-year-old man with mass. COMPARISON: None. FINDINGS: 5.1 x 2.9 x 2.9 cm hypoechoic lesion in the soft tissues of the posterior neck at the midline with posterior acoustic enhancement, internal echoes, a thick internal septation, and possible mural nodular component. IMPRESSION: 5.1 cm complex cystic lesion in the soft tissues of the posterior neck with thick internal septation and possible mural nodular component. Differential considerations include abscess, hematoma, and necrotic/complex cystic mass. RECOMMENDATION: CT may be obtained for further characterization. Signed: Yokasta Cerna MD Report Verified Date/Time:10/24/2017 17:36:55 Reading Location: [facility] [id number] Ultrasound Reading Room Procedure Note Interface, External Ris In - 10/24/2017 5:39 PM TAPE SEWING MACHINE OPERATOR FINAL REPORT TECHNIQUE: Focused grayscale ultrasound of the posterior neck. INDICATION: 51-year-old man with mass. COMPARISON: None. FINDINGS: 5.1 x 2.9 x 2.9 cm hypoechoic lesion in the soft tissues of the posterior neck at the midline with posterior acoustic enhancement, internal echoes, a thick internal septation, and possible mural nodular component. IMPRESSION: 5.1 cm complex cystic lesion in the soft tissues of the posterior neck with thick internal septation and possible mural nodular component. Differential considerations include abscess, hematoma, and necrotic/complex cystic mass. RECOMMENDATION: CT may be obtained for further characterization. Signed: Yokasta Cerna MD Report Verified Date/Time: 10/24/2017 17:36:55 Reading Location: [place] [id number] Ultrasound Reading Room Troponin I (10/24/2017 12:27 PM)Only the most recent of3 resultswithin the time period is included. Component Value Ref Range Troponin I <0.01 0.00 - 0.03 ng/mL Specimen Performing Laboratory Blood - Arm, [place] [address] Narrative Troponin I (TnI) levels must be interpreted [...] failure, acidosis, acute neurological disease, and persistent tachyarrhythmia. Creatine Kinase (CK), Total and MB (10/24/2017 12:27 PM)Only the most recent of3 resultswithin the time period is included. Component Value Ref Range Total CK 122 29 - 200 U/L CK-MB 1.0 0.0 - 6.6 ng/mL MB Relative Index 0.8 % Specimen Performing Laboratory Blood - Arm, Right [facility] [address] [place] [address], [place] [address] Narrative CK-MB Reference Range: <6.7Normal 6.7-10.0Borderline >10.0 Abnormal XR chest 1 view portable / bedside (10/24/2017 12:09 PM) Specimen Performing Laboratory GE RIS Narrative FINAL REPORT TECHNIQUE: Frontal chest radiograph dated 10/24/2017. CLINICAL HISTORY: Right upper chest pain COMPARISON STUDY: Chest radiograph dated 07/16/2016 FINDINGS: Lungs are clear. No pleural effusion or pneumothorax. Cardiomediastinal silhouette is normal in size. No pulmonary edema. No bone or soft tissue abnormalities are seen. IMPRESSION: Clear lungs. Signed: Vinod Guzmán MD Report Verified Date/Time:10/24/2017 12:58:39 Reading Location: [facility] Radiology Reading Room Procedure Note Interface, External Ris In - 10/24/2017 1:00 PM TAPE SEWING MACHINE OPERATOR FINAL REPORT TECHNIQUE: Frontal chest radiograph dated 10/24/2017. CLINICAL HISTORY: Right upper chest pain COMPARISON STUDY: Chest radiograph dated 07/16/2016 FINDINGS: Lungs are clear. No pleural effusion or pneumothorax. Cardiomediastinal silhouette is normal in size. No pulmonary edema. No bone or soft tissue abnormalities are seen. IMPRESSION: Clear lungs. Signed: Vinod Guzmán MD Report Verified Date/Time: 10/24/2017 12:58:39 Reading Location: [facility] Radiology Reading Room brain without IV contrast (10/24/2017 11:29 AM) Specimen Performing Laboratory GE RIS Narrative FINAL REPORT CT head without contrast INDICATION: Right arm paresthesias TECHNIQUE: Axial noncontrast CT images through the head were obtained. This exam was performed according to our departmental dose optimization program which includes automated exposure control, adjustment of the mA and/or kV according to patient size and/or use of iterative reconstruction technique. COMPARISON: None available FINDINGS: There is scatter artifact from large body habitus. [...] abnormality, MRI is advised. Signed: Mary Pratt MD Report Verified Date/Time:10/24/2017 12:46:53 Reading Location: [facility] Radiology Reading Room Procedure Note Interface, External Ris In - 10/24/2017 12:49 PM TAPE SEWING MACHINE OPERATOR FINAL REPORT CT head without contrast INDICATION: Right arm paresthesias TECHNIQUE: Axial noncontrast CT images through the head were obtained. This exam was performed according to our departmental dose optimization program which includes automated exposure control, adjustment of the mA and/or kV according to patient size and/or use of iterative reconstruction technique. COMPARISON: None available FINDINGS: There is scatter artifact from large body habitus. [...] abnormality, MRI is advised. Signed: Mary Pratt MD Report Verified Date/Time: 10/24/2017 12:46:53 Reading Location: [facility] Radiology Reading Room /Free T4 If Indicated (10/24/2017 4:02 AM) Component Value Ref Range TSH 0.30 (L) 0.35 - 4.94 uIU/mL Specimen Performing Laboratory Blood [address] [address] BUN and Creatinine (10/24/2017 4:02 AM) Component Value Ref Range BUN 9 7 - 21 mg/dL Creatinine 0.64 0.57 - 1.25 mg/dL EGFR 132Comment: ESTIMATED GFR IS NOT ACCURATE mL/min/1.73 sq m CREATININE CLEARANCE IN PREDICTING GLOMERULAR FILTRATION RATE. ESTIMATED GFR IS NOT APPLICABLE FOR DIALYSIS PATIENTS. Specimen Performing Laboratory Blood [address] [address] Narrative Specimen slightly icteric Sedimentation rate (10/24/2017 4:02 AM) Component Value Ref Range Sed Rate 59 (H) 0 - 20 mm/HR Specimen Performing Laboratory Blood [address] [address] Hemoglobin A1c (10/24/2017 4:02 AM) Component Value Ref Range Hemoglobin A1C 9.0 (H) 4.3 - 6.1 % Specimen Performing Laboratory Blood [address] [address] Lipid panel (10/24/2017 4:02 AM) Component Value Ref Range Triglycerides 83 mg/dL Cholesterol 129 mg/dL HDL 29 mg/dL LDL Calculated 83 mg/dL Specimen Performing Laboratory Blood [address] [address] Narrative Triglyceride Reference Range: Low Risk <150 [id number] High Risk 200-499 Very High Risk>=500 Cholesterol Reference Range: Low Risk <200 [id number] High Risk>240 HDL Cholesterol Reference Range: Low Risk >=60 High Risk <40 LDL Cholesterol Reference Range: Optimal<100 Near [id number] Very High >=190 Blood culture (10/23/2017 11:53 PM)Only the most recent of2 resultswithin the time period is included. Component Value Ref Range Result No growth in 5 days Specimen Performing Laboratory Blood - Arm, Right [address] [address] C-Reactive Protein (10/23/2017 11:52 PM) Component Value Ref Range CRP 3.09 (H) 0.00 - 0.50 mg/dL Specimen Performing Laboratory Blood - Arm, Right [facility] [address] [place] [address] ECG 12 lead (10/23/2017 9:45 PM) Specimen Performing Laboratory GE MUSE Narrative Ventricular Rate 83 BPM Atrial Rate 83 BPM P-R Interval 158 ms QRS Duration 92 ms Q-T Interval 366 ms QTC Calculation(Bazett) 430 ms P [place] 19 degrees R [place] 20 degrees T [place] 110 degrees Normal sinus rhythm T wave abnormality, consider lateral ischemia Abnormal ECG No previous ECGs available Confirmed by MD Zamudio Roberto ([id number]) on 10/24/2017 6:32:30 PM Procedure Note Interface, External Ris In - 10/24/2017 6:32 PM TAPE SEWING MACHINE OPERATOR Ventricular Rate 83 BPM Atrial Rate 83 BPM P-R Interval 158 ms QRS Duration 92 ms Q-T Interval 366 ms QTC Calculation(Bazett) 430 ms P [place] 19 degrees R [place] 20 degrees T [place] 110 degrees Normal sinus rhythm T wave abnormality, consider lateral ischemia Abnormal ECG No previous ECGs available Confirmed by MD Zamudio Roberto ([id number]) on 10/24/2017 6:32:30 PM after 05/05/2017
[2018-05-06] MEDS ORDERED: NA CHLORIDE 0.9% 1,000 ML ONE ×2 (09:29→10:40)
[2018-05-06 09:44] LABS: Absolute Lymphocytes (CBC) 3.2 K/uL (0.7-4.9); Absolute Monocytes 3.1 K/uL (0.1-1.3); Hematocrit 35.1 % (39.6-49.0); MCH 28.9 pg (27.0-35.0); MCV 90.9 fL (80-100); Monocytes % 8.8 % (3.3-12.3); RBC Red Blood Cell Count 3.86 M/uL (4.33-5.43)
[2018-05-06] MEDS ORDERED: LORazepam 2 MG/ML VIAL ONE ×2 (10:02→12:02)
--- NOTE | 2018-05-06 10:16 | RAD REPORT ---
EXAM DESCRIPTION: RAD - Chest Single View - 05/06/2018 9:52 am CLINICAL HISTORY: AMS, hypotensive Chest pain. COMPARISON: Chest Single View dated 03/12/2017; Chest Single View dated 11/16/2016; Abdomen 1 View ([facility]) dated 07/13/2016; Chest Single View dated 07/13/2016 FINDINGS: Portable technique and patient positioning limits examination quality. The lungs are grossly clear. The heart is upper limit normal size. No displaced fractures. IMPRESSION: No acute intrathoracic process suspected.
[2018-05-06 10:17] LABS: Albumin 2.8 g/dL (3.4-5.0); Bilirubin Direct 0.8 mg/dL (0-0.2); Bilirubin Total 4.7 mg/dL (0.2-1.0); CKMB Creatine Kinase MB 6.5 ng/mL (0.3-3.6); Potassium 4.6 mmol/L (3.5-5.1); Protein, Total 6.9 g/dL (6.4-8.2)
[2018-05-06 10:33] LABS: Blood Morphology Comment NOT SEEN (NOT SEEN); Platelet Estimate ADEQ
[2018-05-06 10:36] LABS: Urine Blood 2+ (NEG); Urine Glucose NEGATIVE (NEG); Urine Protein TRACE (NEG); Urine Specific Gravity >1.030 (1.005-1.030)
[2018-05-06 10:40] LABS: Barbiturates NEGATIVE (NEGATIVE); Benzodiazepines NEGATIVE (NEGATIVE); Cocaine NEGATIVE (NEGATIVE); METHAMPHETAM NEGATIVE (NEGATIVE); Methadone NEGATIVE (NEGATIVE); Opiates NEGATIVE (NEGATIVE); Phencyclidine NEGATIVE (NEGATIVE); THC Cannibis NEGATIVE (NEGATIVE)
[2018-05-06 10:47] LABS: Urine Bacteria >50 /HPF (NONE SEEN)
[2018-05-06 10:48] LABS: Urine Culture Reflex Order NOT NEEDED
[2018-05-06 10:52] LABS: Urine Amorphous Sediment 1+ /HPF (NONE SEEN)
--- NOTE | 2018-05-06 11:09 | RAD REPORT ---
EXAM DESCRIPTION: US - Abdomen Exam Limited - 05/06/2018 10:53 am CLINICAL HISTORY: abnormal LFTs, eval for gallbladder pathology COMPARISON: Abdomen Exam Limited dated 07/13/2016 FINDINGS: Examination is extremely limited by body habitus. Gallbladder was not well seen. Study is considered nondiagnostic for gallbladder/biliary tree pathology.
[2018-05-06] MEDS ORDERED: CEFTRIAXONE/SWI 1gm 0 GM/0 ML SYR ONE (11:22)
[2018-05-06] MEDS ORDERED: SODIUM CHLORIDE 0.9% 10ML INJ IV PRN (12:04)
[2018-05-06] MEDS ORDERED: ACETAMINOPHEN 650MG/RECT SUPP PR PRN (12:04)
[2018-05-06] MEDS ORDERED: ACETAMINOPHEN 500 MG TAB PO PRN (12:04)
[2018-05-06] MEDS ORDERED: WATER FOR INJ,STERILE 10 ML IM PRN (12:04)
[2018-05-06] MEDS ORDERED: IPRATROPIUM BROM 0.5MG/2.5ML NEB PRN (12:04)
[2018-05-06] MEDS ORDERED: ALBUTEROL 2.5 MG/3 ML NEB SOL NEB PRN (12:04)
[2018-05-06] MEDS ORDERED: ZIPRASIDONE MESYLA 20 MG/VIAL IM PRN (12:04)
[2018-05-06] MEDS ORDERED: ONDANSETRON 4 MG/2 ML VIAL IV PRN (12:04)
--- NOTE | 2018-05-06 12:14 | ER ---
Nurse's Notes [facility] Name: Colby Tilley Jr Age: 52 yrs Sex: Male : 1965 Arrival Date: 05/06/2018 Time: 08:51 Bed 3 Private MD: Tamiko Byrne Diagnosis: Altered mental status, unspecified;Urinary tract infection, site not specified;Sepsis;Acute kidney failure Presentation: 05/06 09:00 Presenting complaint: EMS states: pt family called EMS to assist because the pt who is sg normally [id number]\\[id number] is now altered and not acting normally since this morning. pt was a " little off, last night.". Transition of care: patient was not received from another setting of care. Onset of symptoms was May 06, 2018. Risk Assessment: Do you want to hurt yourself or someone else? Patient reports no desire to harm self or others. Initial Sepsis Screen: Does the patient meet any 2 criteria? RR > 20 per min. Altered Mental Status. Yes Does the patient have a suspected source of infection? No. Patient's initial sepsis screen is negative. Care prior to arrival: IV initiated. 20 GA, in the left hand, EMS unable to get VS due to patient refusing and being uncooperative. 09:00 Method Of Arrival: EMS: [facility] sg 09:00 Acuity: ZENAIDA 2 sg Historical: - Allergies: 09:21 Aspirin; sg 09:21 PENICILLINS; sg - Home Meds: :21 acetaminophen-codeine 300-30 mg Oral tab 1 tab every 6 hours [Active]; carvedilol 6.25 sg mg Oral tab 1 tab 2 times per day [Active]; - PMHx: 09:21 Diabetes - NIDDM; Hypertension; PVD; sg - PSHx: 09:21 Gastric Bypass; Knee surgery; sg - Immunization history:: Adult Immunizations unknown. - Social history:: Smoking status: unknown. - Ebola Screening: : Patient negative for fever greater than or equal to 101.5 degrees Fahrenheit, and additional compatible Ebola Virus Disease symptoms Patient denies exposure to infectious person Patient denies travel to an Ebola-affected area in the 21 days before illness onset No symptoms or risks identified at this time. - Unable to obtain history due to: altered mental status. Screenin: Abuse screen: Denies threats or abuse. Denies injuries from another. Nutritional sg screening: No deficits noted. Tuberculosis screening: No symptoms or risk factors identified. Never had TB. Fall Risk None identified. Assessment: 09:00 General: Appears ill, obese, unkempt, well nourished, Behavior is agitated, sg inappropriate for age, uncooperative. Pain: Unable to use pain scale. Patient is disoriented. Does not appear to understand pain scale. Neuro: Level of Consciousness is awake, confused, Oriented to person, Speech is slurred, Facial symmetry appears normal. Cardiovascular: Capillary refill is brisk in bilateral fingers Pulses are palpable in right radial artery and left radial artery. Respiratory: Airway is patent Respiratory effort is even, labored, Respiratory pattern is symmetrical, tachypnea Breath sounds are clear. GI: Abdomen is round obese. : No deficits noted. EENT: No deficits noted. Derm: Skin is intact, Skin is clammy, Skin is jaundiced, Skin temperature is cool Bruising that is green, on anterior aspect of left lateral abdomen and posterior aspect of left lateral abdomen. Musculoskeletal: No signs and/or symptoms reported regarding the musculoskeletal system. 09:21 Reassessment: pt refuses to allow us to swab his throat, pt pushing away swab, pt keeps iw saying "no, no, no, no". 09:24 Reassessment: family at bedside, pt seems to be agitated by family presence, keeps iw repeating "no, no, no, i need to get up", pt restless in bed. 09:30 Reassessment: Patient appears in no apparent distress at this time. pt family at sg bedside speaking with about pt history at home, pt mother reports pt has been acting unusual for about 3 days, worsening this morning so we called for help. pt male family member states "we are not really sure if he is over medicated or if it is his blood sugar that's giving him problems.". 10:55 Reassessment: pt o2 saturation noted to be 86 percent on room air, notified, sg pt placed to o2 via NRB at 15 lpm, 02 saturation improved to 94 percent, pt removes NRB bask so staff at [facility] holding mask above face, pt tolerating better than wearing mask. 11:46 Reassessment: pt transported to CT via stretcher, with VIRI Stahl and Swathi RN, and iw mammography technician, on monitor. 12:40 Reassessment: Patient appears in no apparent distress at this time. pt transported back from CT, pt tolerated exam poorly but images were obtained. 13:38 Reassessment: Patient appears in no apparent distress at this time. pt observed sg scratching at arm that IV access noted with IV cipro infusing, a reddened area noted around IV site, IV abx dc'd at this time, IV site flushed no issues noted, notified, orders received for IV benadryl 25 mg IVP. pt medicated as ordered. Reassessment: [facility] on phone, reports an elevated repeat lactate level, Michaela RN reports notifying and received orders for IV bolus until pt has received 3 liters IV NS total. Pt medicated, see EMAR. 14:20 Reassessment: Patient appears in no apparent distress at this time. IV site to R hand sg DC, IV site to right forearm DC due to infiltration, a new IV has been initiated. 14:53 Reassessment: Patient appears in no apparent distress at this time. pt brother updated sg on POC and awaiting ICU availability at this time, pt brother stated understanding. 15:05 Reassessment: Patient appears in no apparent distress at this time. IV that was just sg initiated appears infiltrated, red and puffy, IV dc'd, notified of the redness to the IV site, ordered to continue infusing IV Vanco, IV initiated and IV Vanc infusion continued. 15:10 Reassessment: Patient appears in no apparent distress at this time. ICU contacted, spoke with Lacy MEREDITH. ICU awaiting arrival of bariatric bed from [facility] at this time, prior to accepting pt to the ICU. 15:16 Reassessment: [facility] rep at facility with [facility] bed at this time. Vital Signs: 09:18 BP 115 / 87; Pulse 128; Resp 26; Temp 97.3; Pulse Ox 97% on R/A; Pain 0/10; sg 09:47 Pulse 113; Resp 19 S; Pulse Ox 97% on R/A; sg 10:42 Pulse 115; Resp 16 S; Pulse Ox 86% on R/A; sg 11:45 BP 98 / 45; Pulse 121; Resp 20 S; Pulse Ox 97% on R/A; iw 11:47 Weight 222.26 kg (R); iw 12:30 BP 113 / 60 RA Supine (auto/); Pulse 117 MON; Resp 28 S; Pulse Ox 96% on 100% sg Non-rebreather mask; 13:28 BP 105 / 66; Pulse 112 MON; Resp 26 S; Pulse Ox 97% on R/A; Pain 0/10; sg 14:39 BP 108 / 73; Pulse 120; Resp 22; Pulse Ox 96% on R/A; sg 09:47 pt removes BP cuff, pt uncooperative with BP and VS at this time sg 10:42 pt placed to NRB improved o2 to 96 percent at 15 lpm sg Vitals: 09:47 Cardiac Rhythm Assessment Sinus tach. sg 12:30 Cardiac Rhythm Assessment Sinus tach. sg 13:28 Cardiac Rhythm Assessment Sinus tach. sg 14:39 Cardiac Rhythm Assessment Sinus tach. sg ED Course: 08:51 Patient arrived in ED. rn 08:52 Simeon Lanza MD is Attending Physician. rn 08:57 [facility] [id number].. bd 09:00 Patient has correct armband on for positive identification. Bed in low position. Call sg light in reach. Side rails up X2. compliance monitor on. Pulse ox on. NIBP on. pt uncooperative for monitoring, constantly removes leads and BP cuff and o2 monitoring, despite staff attempt to put the monitors to pt. 09:14 Favio Garland, RN is Primary Nurse. sg 09:18 Triage completed. sg 09:19 Tamiko Byrne MD is Private Physician. sg 09:21 Initial lab(s) drawn, by me, sent to lab. Maintain EMS IV. Site clean \\T\\ dry. Gauge \\T\\ sg site: 20 G L Hand. IV is patent, is intact, with fluids infusing freely. 09:51 X-ray completed. Portable x-ray completed in exam room. Patient tolerated procedure la2 well. 09:52 Chest Single View XRAY In Process Unspecified. EDMS 10:00 Straight cath inserted, using sterile technique, Specimen obtained. Returned sona sg urine. Patient tolerated well. 15 Fr. 10:04 Notified ED physician of a critical lab result(s). Lactate=11.0. iw 10:19 Urine collected: straight cath specimen, cloudy, tea colored, Strep swab sent to lab. iw 10:42 US Abdomen Limited In Process Unspecified. EDMS 12:12 Marciano Tamez DO is Hospitalizing Provider. rn 12:20 CT Head Brain wo Cont In Process Unspecified. EDMS 12:20 CT Abd/Pelvis - Without Cont In Process Unspecified. EDMS 12:55 First set of blood cultures drawn by ED staff. sg 13:20 Second set of blood cultures drawn by ED staff. Inserted saline lock: 20 gauge in right sg forearm, using aseptic technique. Blood collected. 14:13 Echocardiogram with Doppler done by biomedical equipment tech. tc 14:40 Inserted saline lock: 20 gauge in left wrist, using aseptic technique. IV inserted by irma Berry RN. Administered Medications: 09:03 CANCELLED (Duplicate Order): NS 0.9% (30 ml/kg) 30 ml/kg IV at bolus once; Sepsis rn Protocol 09:40 Drug: NS 0.9% 1000 ml Route: IV; Rate: 1000 ml; Site: left hand; sg 11:40 Follow up: Response: No adverse reaction; IV Status: Completed infusion; IV Intake: sg 1000ml 10:10 Drug: Ativan 1 mg Route: IVP; Site: left hand; sg 10:45 Follow up: Response: No adverse reaction sg 10:45 Drug: NS 0.9% 1000 ml Route: IV; Rate: 1000 ml; Site: left hand; sg 11:50 Follow up: Response: No adverse reaction; IV Status: Completed infusion; IV Intake: sg 990ml 11:22 Not Given (Duplicate Order): Rocephin - (cefTRIAXone) 1 grams IVPB once over 30 mins; rn (mix in 50 mL NS) 12:00 Drug: Ativan 1 mg Route: IVP; Site: left hand; sv 12:20 Follow up: Response: No adverse reaction; Marked relief of symptoms sg 13:00 Drug: Cipro 400 mg Volume: 200 ml; Route: IVPB; Infused Over: 60 mins; Site: right sg forearm; 13:30 Follow up: Response: Adverse reaction, Physician notified; IV Status: Completed sg infusion; rash noted at IV site, and pt oberseved scratching side of head and the right forearm, orders recieved 13:48 Drug: NS 0.9% 1000 ml Route: IV; Rate: 1 bolus; Site: right forearm; sg 13:48 Drug: Benadryl 25 mg Route: IVP; Site: right forearm; sg 14:00 Drug: vancoMYCIN 1 grams Route: IVPB; Infused Over: 2 hrs; Site: right forearm; sg Point of Care Testing: Blood Glucose: 09:19 Blood Glucose: 255 mg/dL; sg Ranges: Intake: 11:40 IV: 1000ml; Total: 1000ml. sg 11:50 IV: 990ml; Total: 1990ml. sg Outcome: 12:13 Decision to Hospitalize by Provider. rn 16:13 Patient left the ED. bd Signatures: Dispatcher [employer] EDMS Fanny Dominguez Stephanie, RN RN sv Gay, Steven, RN RN sg Williams, Irene, RN RN iw Nieto, Roman, MD MD rn Callis, Tiffany, architectural project manager EKG Ttc Marilia Irby
--- NOTE | 2018-05-06 12:14 | EDPHYS ---
Physician Documentation [facility] Name: Colby Tilley Jr Age: 52 yrs Sex: Male : 1965 Arrival Date: 05/06/2018 Time: 08:51 Bed 3 Private MD: Tamiko Byrne ED Physician Simeon Lanza HPI: 05/06 09:03 This 52 yrs old Male presents to ER via Unassigned with complaints of altered rn mental status. 09:03 The patient presents with agitation, confusion, disorientation. Onset: The rn symptoms/episode began/occurred at an unknown time. Possible causes: unknown. Current symptoms: In the emergency department the patient's symptoms are unchanged from the initial presentation. The patient has experienced similar episodes in the past. Per EMS, called out for AMS, slight agitation, pt was confused and diaphoretic, not allowing them to take vitals, patient denies pain but very slow to respond.. Historical: - Allergies: :21 Aspirin; sg 09:21 PENICILLINS; sg - Home Meds: :21 acetaminophen-codeine 300-30 mg Oral tab 1 tab every 6 hours [Active]; carvedilol 6.25 sg mg Oral tab 1 tab 2 times per day [Active]; - PMHx: 09:21 Diabetes - NIDDM; Hypertension; PVD; sg - PSHx: :21 Gastric Bypass; Knee surgery; sg - Immunization history:: Adult Immunizations unknown. - Social history:: Smoking status: unknown. - Ebola Screening: : Patient negative for fever greater than or equal to 101.5 degrees Fahrenheit, and additional compatible Ebola Virus Disease symptoms Patient denies exposure to infectious person Patient denies travel to an Ebola-affected area in the 21 days before illness onset No symptoms or risks identified at this time. - Unable to obtain history due to: altered mental status. ROS: 09:03 Unable to obtain ROS due to altered mental status, patient being uncooperative. rn Exam: 09:03 Constitutional: This is a well developed, well nourished patient who is awake, rn somnolent, slow to respond, uncooperative Head/Face: Normocephalic, atraumatic. Eyes: Pupils equal round and reactive to light, extra-ocular motions intact. Lids and lashes normal. Conjunctiva and sclera are non-icteric and not injected. Cornea within normal limits. Periorbital areas with no swelling, redness, or edema. ENT: dry MM Neck: Trachea midline, no thyromegaly or masses palpated, and no cervical lymphadenopathy. Supple, full range of motion without nuchal rigidity, or vertebral point tenderness. No Meningismus. Cardiovascular: Regular rate and rhythm with a normal S1 and S2. No gallops, murmurs, or rubs. Normal PMI, no JVD. No pulse deficits. Respiratory: Lungs have equal breath sounds bilaterally, clear to auscultation and percussion. No rales, rhonchi or wheezes noted. No increased work of breathing, no retractions or nasal flaring. Abdomen/GI: Soft, non-tender. No distension or tympany. No guarding or rebound. No evidence of tenderness throughout. Back: No spinal tenderness. No costovertebral tenderness. Full range of motion. Skin: Warm, dry no evidence of cellulitis. MS/ Extremity: Pulses equal, no cyanosis. Neurovascular intact. Full, normal range of motion. Equal circumference. Neuro: Awake, uncooperative but follows simple commands, appears slightly agitated, able to support his weight, moves all 4 extremities, doesn't cooperate otherwise. Vital Signs: 09:18 BP 115 / 87; Pulse 128; Resp 26; Temp 97.3; Pulse Ox 97% on R/A; Pain 0/10; sg 09:47 Pulse 113; Resp 19 S; Pulse Ox 97% on R/A; sg 10:42 Pulse 115; Resp 16 S; Pulse Ox 86% on R/A; sg 11:45 BP 98 / 45; Pulse 121; Resp 20 S; Pulse Ox 97% on R/A; iw 11:47 Weight 222.26 kg (R); iw 12:30 BP 113 / 60 RA Supine (auto/); Pulse 117 MON; Resp 28 S; Pulse Ox 96% on 100% sg Non-rebreather mask; 13:28 BP 105 / 66; Pulse 112 MON; Resp 26 S; Pulse Ox 97% on R/A; Pain 0/10; sg 14:39 BP 108 / 73; Pulse 120; Resp 22; Pulse Ox 96% on R/A; sg 09:47 pt removes BP cuff, pt uncooperative with BP and VS at this time sg 10:42 pt placed to NRB improved o2 to 96 percent at 15 lpm sg MDM: 08:52 Patient medically screened. rn 10:23 ED course: Family here, states not sleeping well last few days, stays up playing video [email or web address] games, brother reports yesterday patient told him his urine was dark and has been having diarrhea. NO abd tenderness on exam, + elevated lactate/procalcitonin/WBC. Clear CXR.. 12:11 Differential Diagnosis: electrolyte abnormality, intracranial bleed, sepsis, UTI, rn volume depletion. Data reviewed: vital signs, nurses notes, lab test result(s), EKG, radiologic studies, CT scan, plain films, and as a result, I will admit patient. Counseling: I had a detailed discussion with the patient and/or guardian regarding: the historical points, exam findings, and any diagnostic results supporting the discharge/admit diagnosis, lab results, radiology results, the need for further work-up and treatment in the hospital. Response to treatment: the patient's symptoms have mildly improved after treatment, and as a result, I will admit patient. Admission orders: after a detailed discussion of the patient's condition and case, the admit orders are written by me. ED course: Pt with sepsis, + UTI on cath specimen, admitted to ICU under dr smith.. 05/06 08:53 Order name: Urine Culture rn 05/06 08:53 Order name: Urine Microscopic Only; Complete Time: 11: rn 05/06 08:53 Order name: Basic Metabolic Panel; Complete Time: 10:24 rn 05/06 08:53 Order name: Blood Culture Adult (2) rn 05/06 08:53 Order name: CBC with Diff; Complete Time: 11:08 rn 05/06 08:53 Order name: Ckmb; Complete Time: 10:24 rn 05/06 08:53 Order name: CPK; Complete Time: 10:24 rn 05/06 08:53 Order name: Lactate; Complete Time: 10:17 rn 05/06 08:53 Order name: LFT's; Complete Time: 10:24 rn 05/06 08:53 Order name: Lipase; Complete Time: 10:24 rn 05/06 08:53 Order name: Procalcitonin; Complete Time: 10:17 rn 05/06 08:53 Order name: Troponin (emerg Dept Use Only); Complete Time: 11:08 rn 05/06 08:53 Order name: Strep; Complete Time: 11:08 rn 05/06 10:17 Order name: Urine Drug Screen rn 05/06 10:18 Order name: Urine Drug Screen; Complete Time: 11:08 EDMS 05/06 10:27 Order name: Urine Dipstick--Ancillary (enter results) bd 05/06 10:27 Order name: Urine Dipstick-Ancillary; Complete Time: 11:08 EDMS 05/06 10:33 Order name: Manual Differential; Complete Time: 11:08 EDMS 05/06 10:44 Order name: Throat Culture EDMS 05/06 12:20 Order name: CBC with Automated Diff EDMS 05/06 12:20 Order name: CBC with Automated Diff EDMS 05/06 12:20 Order name: CKMB Creatine Kinase MB EDMS 05/06 12:20 Order name: CKMB Creatine Kinase MB EDMS 05/06 12:20 Order name: CKMB Creatine Kinase MB EDMS 05/06 12:20 Order name: Comprehensive Metabolic Panel EDMS 05/06 12:20 Order name: Comprehensive Metabolic Panel EDMS 05/06 12:20 Order name: Comprehensive Metabolic Panel EDMS 05/06 12:20 Order name: Comprehensive Metabolic Panel EDMS 05/06 12:20 Order name: Comprehensive Metabolic Panel EDMS 05/06 12:20 Order name: Comprehensive Metabolic Panel EDMS 05/06 08:53 Order name: Chest Single View XRAY; Complete Time: 10:17 rn 05/06 10:25 Order name: US Abdomen Limited; Complete Time: 11:32 rn 05/06 11:08 Order name: CT Head Brain wo Cont; Complete Time: 12:35 rn 05/06 11:08 Order name: CT Abd/Pelvis - Without Cont; Complete Time: 12:35 rn 05/06 12:20 Order name: Echo with Doppler EDMS 05/06 12:20 Order name: Creatine Phosphokinase EDMS 05/06 12:20 Order name: Creatine Phosphokinase EDMS 05/06 12:20 Order name: Creatine Phosphokinase EDMS 05/06 12:20 Order name: Lipid Profile EDMS 05/06 12:20 Order name: Lipid Profile EDMS 05/06 12:20 Order name: Magnesium EDMS 05/06 12:21 Order name: Magnesium EDMS 05/06 12:21 Order name: Magnesium EDMS 05/06 12:21 Order name: Magnesium EDMS 05/06 12:21 Order name: Magnesium EDMS 05/06 12:21 Order name: Magnesium EDMS 05/06 12:21 Order name: T4 Free EDMS 05/06 12:21 Order name: T4 Free EDMS 05/06 12:21 Order name: Troponin I EDMS 05/06 12:21 Order name: Troponin I EDMS 05/06 12:21 Order name: Troponin I EDMS 05/06 12:21 Order name: Thyroid Stimulating Hormone EDMS 05/06 12:21 Order name: Thyroid Stimulating Hormone EDMS 05/06 12:21 Order name: Lactate EDMS 05/06 12:21 Order name: Blood Culture EDMS 05/06 12:21 Order name: Urine Culture EDMS 05/06 12:36 Order name: AMMONIA rn 05/06 12:39 Order name: ABG rn 05/06 13:10 Order name: ABG Arterial Blood Gas; Complete Time: 13:26 EDMS 05/06 13:15 Order name: Ammonia; Complete Time: 13:26 EDMS 05/06 13:37 Order name: Lactate Sepsis 2 HR Follow-up EDMS 05/06 08:53 Order name: Accucheck; Complete Time: 09:20 rn 05/06 08:53 Order name: Cardiac monitoring; Complete Time: 09:20 rn 05/06 08:53 Order name: EKG - Nurse/Tech; Complete Time: 09:20 rn 05/06 08:53 Order name: IV Saline Lock - Large Bore; Complete Time: 09:20 rn 05/06 08:53 Order name: Labs collected and sent; Complete Time: 09:20 rn 05/06 08:53 Order name: O2 Per Protocol; Complete Time: 09:20 rn 05/06 08:53 Order name: O2 Sat Monitoring; Complete Time: 09:20 rn 05/06 08:53 Order name: Urine Dipstick-Ancillary (obtain specimen); Complete Time: 10:25 rn 08 12:20 Order name: CONS Pharmacy Consult EDMS 05/06 12:20 Order name: CONS Physician Consult EDMS 05/06 12:20 Order name: CONS Physician Consult EDMS 05/06 12:20 Order name: NPO EDMS 05/06 12:21 Order name: Respiratory Therapy Consult EDMS Administered Medications: 09:03 CANCELLED (Duplicate Order): NS 0.9% (30 ml/kg) 30 ml/kg IV at bolus once; Sepsis rn Protocol 09:40 Drug: NS 0.9% 1000 ml Route: IV; Rate: 1000 ml; Site: left hand; sg 11:40 Follow up: Response: No adverse reaction; IV Status: Completed infusion; IV Intake: sg 1000ml 10:10 Drug: Ativan 1 mg Route: IVP; Site: left hand; sg 10:45 Follow up: Response: No adverse reaction sg 10:45 Drug: NS 0.9% 1000 ml Route: IV; Rate: 1000 ml; Site: left hand; sg 11:50 Follow up: Response: No adverse reaction; IV Status: Completed infusion; IV Intake: sg 990ml 11:22 Not Given (Duplicate Order): Rocephin - (cefTRIAXone) 1 grams IVPB once over 30 mins; rn (mix in 50 mL NS) 12:00 Drug: Ativan 1 mg Route: IVP; Site: left hand; sv 12:20 Follow up: Response: No adverse reaction; Marked relief of symptoms sg 13:00 Drug: Cipro 400 mg Volume: 200 ml; Route: IVPB; Infused Over: 60 mins; Site: right sg forearm; 13:30 Follow up: Response: Adverse reaction, Physician notified; IV Status: Completed sg infusion; rash noted at IV site, and pt oberseved scratching side of head and the right forearm, orders recieved 13:48 Drug: NS 0.9% 1000 ml Route: IV; Rate: 1 bolus; Site: right forearm; sg 13:48 Drug: Benadryl 25 mg Route: IVP; Site: right forearm; sg 14:00 Drug: vancoMYCIN 1 grams Route: IVPB; Infused Over: 2 hrs; Site: right forearm; sg Point of Care Testing: Blood Glucose: 09:19 Blood Glucose: 255 mg/dL; sg Ranges: Critical Glucose Levels:Adult <50 mg/dl or >400 mg/dl <40 mg/dl or >180 mg/dl Disposition: 12:11 Critical Care:. rn Disposition: 05/06/18 12:13 Hospitalization ordered by Marciano Smith for Inpatient Admission. Preliminary diagnosis are Altered mental status, unspecified, Urinary tract infection, site not specified, Sepsis, Acute kidney failure. - Bed requested for Intensive Care Unit. - Status is Inpatient Admission. bd - Condition is Fair. - Problem is new. - Symptoms have improved. UTI on Admission? Yes Critical care time excluding procedures: 12:11 Critical care time: Bedside Care: 50 minutes, Consultation: 5 minutes, Family rn Intervention: 5 minutes. Total time: 60 minutes Signatures: Dispatcher [employer] EDMS Fanny Dominguez Swathi Gutierrez RN RN sv Gay, Steven, RN RN sg Nieto, Roman, MD MD learning facilitator: (The following items were deleted from the chart) 09:03 08:53 NS 0.9% (30 ml/kg) 30 ml/kg IV at bolus once; Sepsis Protocol ordered. rn rn 13:10 12:13 Hospitalization Ordered by Marciano Smith DO for Inpatient Admission. Preliminary bd diagnosis is Altered mental status, unspecified; Urinary tract infection, site not specified; Sepsis; Acute kidney failure. Bed requested for Intensive Care Unit. Status is Inpatient Admission. Condition is Fair. Problem is new. Symptoms have improved. UTI on Admission? Yes. rn 16:13 13:10 05/06/2018 12:13 Hospitalization Ordered by Marciano Smith DO for Inpatient bd Admission. Preliminary diagnosis is Altered mental status, unspecified; Urinary tract infection, site not specified; Sepsis; Acute kidney failure. Bed requested for Intensive Care Unit. Status is Inpatient Admission. Condition is Fair. Problem is new. Symptoms have improved. UTI on Admission? Yes. bd
--- NOTE | 2018-05-06 12:28 | RAD REPORT ---
EXAM DESCRIPTION: CT - Head Brain Wo Cont - 05/06/2018 12:19 pm CLINICAL HISTORY: CONFUSED Drowsiness COMPARISON: HEAD BRAIN W O CONTRAST dated 06/09/2014 TECHNIQUE: All CT scans are performed using dose optimization technique as appropriate and may inclu de automated exposure control or mA/KV adjustment according to patient size. FINDINGS: No intracranial hemorrhage, hydrocephalus or extra-axial fluid collection.No areas of brai n edema or evidence of midline shift. The paranasal sinuses and mastoids are essentially clear. The calvarium is intact. IMPRESSION: No acute intracranial abnormality.
--- NOTE | 2018-05-06 12:30 | RAD REPORT ---
EXAM DESCRIPTION: CT - Abdomen Pelvis Wo Contrast - 05/06/2018 12:19 pm CLINICAL HISTORY: Abdominal pain. diarrhea, AMS COMPARISON: No comparisons TECHNIQUE: CT imaging of the abdomen and pelvis was performed without contrast. Solid organ, bowel a nd vascular assessment is limited due to lack of IV and oral contrast. All CT scans are performed using dose optimization technique as appropriate and may include automated exposure control or mA/KV adjustment according to patient size. FINDINGS: The lower lung snyder are clear. The liver has a nodular contour compatible with mild cirrhosis. Hrvz-[id number] splenomegaly is seen . Cholecystectomy clips are present.Adrenal glands, pancreas and kidneys show no acute or concerning abnormality. No bowel obstruction, free air, free fluid or abscess. The appendix is normal. Prominent lumbosacral degenerative changes. IMPRESSION: Mild liver cirrhosis. A limited non-contrast examination was performed as detailed.
[2018-05-06] MEDS ORDERED: VANCOMYCIN 1 GM/250 ML BAG ONE (12:58)
[2018-05-06] MEDS ORDERED: CIPROFLOXACIN 400mg IV 400 MG/200 ML BAG IV ONE (12:58)
[2018-05-06] MEDS ORDERED: D5 0.45 NS 1,000 ML IV SCH (13:00)
[2018-05-06] MEDS ORDERED: NA CHLORIDE 0.9% 1,000 ML IV SCH ×2 (13:00→18:00)
[2018-05-06 13:08] LABS: Arterial Blood Carboxyhemoglob 1.5 % (0-1.5); Blood Gas Oxyhemoglobin 85.9 % (94-97); Blood O2 Saturation 88.1 % (92-98.5)
--- NOTE | 2018-05-06 13:17 | P.HP ---
Certification for Inpatient Patient admitted to: Inpatient With expected LOS: >2 Midnights Patient will require the following post-hospital care: None Practitioner: I am a practitioner with admitting privileges, knowledge of patient current condition, hospital course, and medical plan of care. Services: Services provided to patient in accordance with Admission requirements found in Title 42 Section 412.3 of the Code of Federal Regulations Patient History Date of Service: 05/06/18 Primary Care Provider: Dr. Perez Reason for admission: Altered mental status History of Present Illness: 52-year-old male presented to emergency room with altered mental status. Most information came from the family and ER physician. Over the last several days patient has been with increased fatigue. He has been sleeping a great deal of the time. Mother reports that the patient had fever, diarrhea. Patient with history of hypertension, diabetes, depression, and sleep apnea. His condition worsen with the increase agitation today. Patient was brought in to the emergency room. In the ER patient found to be hypotensive. He was also tachycardic. Initial blood pressure 91/58 with a heart rate 118. Patient was given IV fluids. Patient stabilize for further evaluation. CT head unremarkable for any acute changes. CT abdomen showed mild liver cirrhosis with splenomegaly. No acute findings noted. On lab white count 35.3. Percent neutrophils elevated at 82. Absolute neutrophils elevated, he had 5 bands. Lactic acid elevated at 11. Pro calcitonin elevated at 4.47. CPK 2059. CK MB 6.5 her, troponin 0.12. Urinalysis was positive for urinary tract infection. Urine drug screen negative. PH is 7.36 with a P O2 of 62. P CO2 of 31 and a bicarb 17. Patient has been stabilize. Chest x-ray unremarkable. When I saw the patient ER, he appeared agitated. Patient required Ativan for CT scan. Patient stable at this time. Blood pressures improved. Heart rate still tachycardic. Family reports patient takes multiple medications. Family reports that his kidney function had been normal on his last examination. Family reports that the patient had fever, diarrhea and not acting his normal mentation. Allergies Penicillins Adverse Reaction (Mild, Verified 03/12/17 16:56) Shortness of breath aspirin Adverse Reaction (Unknown, Verified 03/12/17 16:56) Shortness of breath Home medications list reviewed: Yes Home Medications: Carvedilol [Coreg*] 6.25 mg PO BID 10/18/16 Duloxetine HCl 60 mg PO DAILY 10/18/16 Furosemide [Lasix*] 20 mg PO DAILY 10/18/16 Gabapentin [Gralise] 600 mg PO TID 10/18/16 Lisinopril/Hydrochlorothiazide [Lisinopril-Hctz 20-12.5 mg Tab] 2 each PO DAILY 10/18/16 Metformin HCl [Metformin HCl ER] 1 tab PO BID 10/18/16 Pantoprazole [Protonix Tab*] 40 mg PO DAILY 10/18/16 Potassium Chloride 20 meq PO DAILY 10/18/16 Sitagliptin Phosphate [Januvia*] 50 mg PO DAILY 10/18/16 Codeine/APAP [Tylenol #3*] 1 tab PO Q6HP PRN 11/16/16 Cyclobenzaprine [Flexeril*] 10 mg PO BID PRN 11/16/16 Cyanocobalamin (Vitamin B-12) [Vitamin B-12] 5,000 mcg SL DAILY #30 tab.subl Levothyroxine Sodium [Synthroid] 0.125 mg PO DAILY #30 tablet 03/14/17 - Past Medical/Surgical History Diabetic: Yes -: Hypertension -: Peripheral vascular disease -: Diabetes mellitus type 2 -: Morbid obesity -: Hyperlipidemia -: Depression -: Obstructive sleep apnea -: Cirrhosis -: Diabetic neuropathy -: Venous insufficiency -: Gastric bypass -: Bilateral knee surgery -: "venous reflux" had small veins closed "years ago" Psychosocial/ Personal History: The patient lives with his brother. He has no children. He is disabled. - Family History Father -: Hypertension, Stroke - Social History Smoking Status: Never smoker Alcohol use: No CD- Drugs: No Caffeine use: No Place of Residence: Home Review of Systems General: Fever, Weakness, As per HPI Eyes: Unremarkable ENT: Unremarkable Respiratory: Shortness of Breath, As per HPI Cardiovascular: As per HPI Gastrointestinal: Diarrhea, As per HPI Genitourinary: As per HPI Musculoskeletal: As per HPI Integumentary: As per HPI Neurological: Weakness, As per HPI Lymphatics: Unremarkable Physical Examination - Physical Exam General: Confused, Other (Patient sedated with medication. Patient was agitated earlier prior to CT scan. Patient confused) HEENT: Atraumatic, Normocephalic, Other (Dry mucous membranes) Neck: Supple, No Thyromegaly Respiratory: Clear to auscultation bilaterally, Normal air movement Cardiovascular: Abnormal pulses (Sinus tachycardia ) Gastrointestinal: Normal bowel sounds, Soft and benign, Non-distended, No tenderness, No masses, No rebound, No guarding Musculoskeletal: No erythema, No tenderness, No warmth Integumentary: No erythema, No warmth, No cyanosis, Other (Chronic venous insufficiency noted to the lower extremities) Neurological: Normal strength at 5/5 x4 extr, Normal tone, Abnormal affect ( Confused and agitated) - Studies Laboratory Data (last 24 hrs) 05/06/18 09:00: WBC 35.3 H*, Hgb 11.2 L, Hct 35.1 L, Plt Count 98 L 05/06/18 09:00: Sodium 137, Potassium 4.6, BUN 83 H, Creatinine 3.00 H, Glucose 248 H, Total Bilirubin 4.7 H, AST 135 H, ALT 84 H, Alkaline Phosphatase 75, Lipase 172 Microbiology Data (last 24 hrs): 05/06/18 10:15 Throat Group A Streptococcus Rapid Screen - Final Assessment and Plan - Problems (Diagnosis) (1) Severe sepsis Current Visit: Yes Status: Acute Plan: Patient with severe sepsis with noted toxic encephalopathy. Likely UTI with bacteremia. Will start vancomycin and Cipro. Will continue IV fluids aggressively. Patient stable this time not requiring vasopressor. Will consult pulmonology for ICU management. Will consult nephrology to address acute renal injury. Will consult cardiology to address elevated troponin likely related to severe sepsis. Will reassess this afternoon. Blood cultures and urine cultures obtained. Patient may require restraints. (2) Toxic encephalopathy Current Visit: Yes Status: Acute Plan: Likely from UTI and bacteremia. Will continue above. Patient on IV antibiotic therapy and fluids (3) Diabetes mellitus Current Visit: Yes Status: Chronic Plan: Will check A1c. Will provide sliding scale. We will hold his oral medication at this time. Qualifiers: Diabetes mellitus type: type 2 Diabetes mellitus intermediate accountant insulin use: without intermediate accountant use Diabetes mellitus complication status: with other specified complication Qualified Code(s): E11.69 - Type 2 diabetes mellitus with other specified complication (4) Diabetic neuropathy Current Visit: Yes Status: Chronic Plan: Will hold his pain medication at this time. Qualifiers: Diabetes mellitus type: type 2 Diabetes mellitus complication detail: diabetic polyneuropathy Qualified Code(s): E11.42 - Type 2 diabetes mellitus with diabetic polyneuropathy (5) Acute renal failure Current Visit: Yes Status: Acute Plan: Likely from severe sepsis, hypertension, volume depletion and UTI. Continue as above. Nephrology consulted. (6) Elevated troponin Current Visit: Yes Status: Acute Plan: Likely from severe sepsis. Cardiology consulted. Will check echocardiogram to evaluate for cardiomyopathy. (7) Depression Current Visit: Yes Status: Acute Plan: Will hold medication at this time. Qualifiers: Depression Type: unspecified Qualified Code(s): F32.9 - Major depressive disorder, single episode, unspecified (8) Obstructive sleep apnea Current Visit: Yes Status: Suspected Plan: Patient likely has sleep apnea. Will have pulmonology assess. Will maintain sats above 90%. (9) Cirrhosis Current Visit: Yes Status: Suspected Plan: Liver cirrhosis noted on CT scan. Likely from fatty liver. Qualifiers: Hepatic cirrhosis type: unspecified hepatic cirrhosis Ascites presence: without ascites Qualified Code(s): K74.60 - Unspecified cirrhosis of liver (10) Splenomegaly Current Visit: Yes Status: Chronic Plan: Likely from cirrhosis. (11) Thrombocytopenia Current Visit: Yes Status: Acute Plan: Likely from severe sepsis. Will monitor closely (12) Hypertension Onset Date: 11/19/16 Current Visit: No Status: Chronic Plan: Will hold his blood pressure medication at this time. Qualifiers: Hypertension type: essential hypertension Qualified Code(s): I10 - Essential (primary) hypertension (13) Hypotension Onset Date: 03/14/17 Current Visit: No Status: Acute Plan: Continue with IV fluids. Hold blood pressure medication at this time. Qualifiers: Hypotension type: other hypotension type Qualified Code(s): I95.89 - Other hypotension Discharge Plan: Home Plan to discharge in: Greater than 2 days - Advance Directives Does patient have a Living Will: No Does patient have a Durable POA for Healthcare: No - Code Status/Comfort Care Code Status Assessed: Yes Code Status: Full Code Time Spent Managing Pts Care (In Minutes): 55
[2018-05-06] MEDS ORDERED: NA CHLORIDE 0.9% 500 ML ONE ×2 (13:44→13:54)
[2018-05-06] MEDS ORDERED: DIPHENHYDRAMINE 50 MG/ML VIAL ONE (13:44)
[2018-05-06] MEDS ORDERED: VANCOMYCIN/NS 1 gm 1 GM/250 ML BAG IV ONE (14:00)
[2018-05-06] MEDS: Meropenem 1,000 MG in NA CHLORIDE 0.9% 100 ML IV SCH ×2 (15:00→20:25)
[2018-05-06] MEDS ORDERED: INSULIN -REGULAR HUMAN 50 UNIT/0.5 ML ML SQ SCH ×2 (16:30→20:15)
--- NOTE | 2018-05-06 17:06 | EKG ---
Test Date: 2018-05-06 Test Time: 09:07:56 Steam Conditioning Operator: SWG MEASUREMENT RESULTS: Intervals: Rate: 122 WA: 140 QRSD: 88 QT: 334 QTc: 475 Java: P: 46 WA: 140 QRS: 53 T: 153 INTERPRETIVE STATEMENTS: Sinus tachycardia with occasional premature ventricular complexes ST & T wave abnormality, consider lateral ischemia Abnormal ECG Compared to ECG 10/23/2017 15:31:09 Ventricular premature complex(es) now present Sinus rhythm no longer present ST (T wave) deviation still present Possible ischemia still present Electronically Signed On 05-06-18 17:05:16 CDT by Hilario Kirkland
--- NOTE | 2018-05-06 17:08 | P.INFCA ---
Sepsis Focused Assessment - Sepsis Screen Result Severe Sepsis: Positive Septic Shock: Negative - Evaluation Current stage of sepsis: Severe sepsis - Vital Signs Reviewed: Yes Temperature: 98.6 F Heart rate: 115 Blood Pressure: 109/73 Respiratory Rate: 23 O2 Sat by Pulse Oximetry: 95 - Examination Date exam was performed: 05/06/18 Time exam was performed: 17:07 Heart: Tachycardia Lungs: Clear bilaterally Peripheral pulses: 3+ Normal Peripheral pulse location: Pedal Capillary refill: Other (Not able to be performed.) Skin examination: Normal turgor, Other (Chronic venous changes to lower ext. )
--- NOTE | 2018-05-06 17:22 | ECHO ---
HEIGHT: 6 ft 8 in WEIGHT: 489 lb 15.991 oz DATE OF STUDY: 05/06/[address]: Marciano Tamez DO 2-DIMENSIONAL: YES M.MODE: YES DOPPLER: YES COLOR FLOW: YES TDS: YES PORTABLE: YES DEFINITY: BUBBLE STUDY: DIAGNOSIS: SEVERE SEPSIS, ELEVATED TROPONIN, EVALUATE FOR CARDIOMYOPATHY CARDIAC HISTORY: CATHERIZATION: NO SURGERY: NO PROSTHETIC VALVE: NO PACEMAKER: NO MEASUREMENTS (cm) DIASTOLIC (NORMALS) SYSTOLIC (NORMALS) IVSd 1.1 (0.6-1.2) LA Diam 4.4 (1.9-4.0) LVEF 63% LVIDd 5.4 (3.5-5.7) LVIDs 3.6 (2.0-3.5) %FS 34% LVPWd 1.1 (0.6-1.2) Ao Diam 3.2 (2.0-3.7) 2 DIMENSIONAL ASSESSMENT: RIGHT ATRIUM: NORMAL LEFT ATRIUM: DILATED RIGHT VENTRICLE: NORMAL LEFT VENTRICLE: NORMAL TRICUSPID VALVE: NORMAL MITRAL VALVE: NORMAL PULMONIC VALVE: NORMAL AORTIC VALVE: NORMAL PERICARDIAL EFFUSION: NONE AORTIC ROOT: NORMAL LEFT VENTRICULAR WALL MOTION: NORMAL DOPPLER/COLOR FLOW: IMPAIRED LEFT VENTRICULAR RELAXATION. COMMENTS: NORMAL LEFT VENTRICULAR EJECTION FRACTION. DILATED LEFT ATRIUM. IMPAIRED LEFT VENTRICULAR RELAXATION. TECHNOLOGIST: GALINA REVELES
[2018-05-06] MEDS: ENOXAPARIN 30 MG/0.3 ML SQ SCH (17:55)
[2018-05-06] MEDS: LORazepam 2 MG/ML VIAL IV PRN ×2 (17:56→22:51)
[2018-05-06] MEDS: LACTULOSE 20 GM/30 ML UCUP PO SCH (20:05)
[2018-05-06] MEDS ORDERED: Ciprofloxacin 200mg IV 200 MG/100 ML IV.SOLN. IV SCH (21:00)
[2018-05-06] MEDS ORDERED: Meropenem 1000 MG/VIAL IV SCH (21:00)
[2018-05-06] MEDS ORDERED: NACHLORIDE 0.45% 1,000 ML IV ONE (21:05)
[2018-05-06] MEDS: NACHLORIDE 0.45% 1,000 ML with NA BICARB 8.4% 75 MEQ IV SCH ×2 (21:23)
--- NOTE | 2018-05-06 22:50 | CON ---
Date of Consultation: 05/06/2018 Reason For Consultation: Elevated BUN and creatinine, fluid management. History Of Present Illness: This is a 52-year-old gentleman. All the information has been obtained from the record as the patient's altered mental status. The patient had significant past medical his tory of diabetes, COPD, peripheral vascular disease, morbid obesity, depression, obstructive sleep ap chacha, cirrhosis, the patient had came to the emergency room because of altered mental status. Apparen tly, the patient is being fatigued, more sleepy over the last few days. When he arrived to the emerg ency room, blood pressure was on the lower side, systolic down to the 90, tachycardic. The patient r eceived 2 L of IV fluid bolus and blood pressure stabilized around 100 to 110. Primary workup showed elevated BUN and creatinine, for that reason, we have been consulted. Also, showed UTI, elevated ca lcitonin, suspect urosepsis. Reviewing the record for the patient, the patient is apparently being on metformin, lisinopril with h ydrochlorothiazide, and potassium supplement. Reviewing the record in our hospital, the patient's kidney function back in February within normal limit, creatinine 0.6, GFR above 90. Medical History: 1.Hypertension. 2.Peripheral vascular disease. 3.Diabetes, complicated with neuropathy. 4.Venous stasis. 5.Morbid obesity, status post gastric bypass. 6.Cirrhosis. 7.Bilateral knee surgery. Family History: Positive for CVA and hypertension. Social History: Not obtainable. Review of Systems: Not obtainable. Home Medications: 1.Carvedilol. 2.Duloxetine. 3.Lasix 20. 4.Gabapentin 600 t.i.d. 5.Lisinopril and hydrochlorothiazide. 6.Metformin. 7.Pantoprazole. 8.KCl. 9.Codeine. 10.Vitamin C. 11.Levothyroxine. Allergies: TO PENICILLIN AND ASPIRIN. Physical Examination: General: When I saw the patient, the patient was lying in bed, snoring. Vital Signs: Blood pressure of 121/57, pulse of 107, afebrile. Chest: Clear to auscultation. Heart: S1, S2. Regular. Tachycardic. Abdomen: Morbidly obese. Extremities: Venous stasis bilateral, plus edema. Laboratory Data: WBC 35.3, H and H 11.2/35.1, platelets of 98. Sodium 137, potassium 4.6, bicarb 15 , chloride 105, BUN 83, creatinine of 3, GFR 22, glucose 248, calcium 8.4. AST 135, ALT 84, CK 2059. Troponin 0.1, albumin 2.8. Procalcitonin 4.7. ABG; pH 7.36, CO2 31, O2 62. Saturation of 88. Uri nalysis; specific gravity more than 1.030, RBC 20, WBC 50. Urine drug screen was negative. Hepatiti s B negative. Imaging: Chest x-ray showing cardiomegaly. Assessment And Plan: 1.Acute kidney injury, secondary to poor perfusion acute tubular necrosis, toxic acute tubular necro sis, superimposed, with Lasix, metformin, and DARY inhibitor, superimposed with diuresis, nonoliguric, mild acidosis, no hyperkalemia. 2.I am going to continue fluid resuscitation, will be aggressive with the IV fluid. 3.Obstructive uropathy has been ruled out by the CT. We will continue to monitor the patient. 4.I am going to go ahead and send for protein creatinine. 5.Agree with holding metformin, Lasix, DARY inhibitor, and hydrochlorothiazide. 6.Acidosis, secondary to renal failure/lactic acidosis. Last sepsis secondary to poor perfusion. H igh anion gap. 7.I switched IV fluid to normal saline and we will monitor the patient. I do not see the need for b icarb drip for the time being. 8.Urosepsis. The patient was started on vancomycin and meropenem. We will follow up culture. 9.Hypertension, currently blood pressure on the lower side. Hold all blood pressure medication donna cially with the acute kidney injury. 10.Rhabdomyolysis, nonoliguric, questionable if it is related to seizure. CT was negative. We will start aggressive hydration. Given the acute kidney injury and the severe contraction, I am going to start the patient on the bicarb drip. For that reason, we will place it on half-normal with 1-1/2 a mp of bicarb and run it at 100 per hour and we will follow up. Our goal to establish urine pH above 6.5-7. 11.Urinary tract infection as above. 12.Altered mental status secondary to urosepsis. CT was negative. We will follow up with the perlita pate, possible secondary to hepatic encephalopathy with the elevated ammonia. I agree with the cherylo se. We will follow up. Thank you Dr. Tamez for allowing us to participate in the care of your patient. STEFFANY Voice ID: [id number] Report ID: [id number]
[2018-05-06] MEDS: INSULIN -REGULAR HUMAN 50 UNIT/0.5 ML ML SQ SCH (23:48)
[2018-05-07 02:06] LABS: Urine Protein/Creatinine Ratio 0.23 ratio (<0.15)
[2018-05-07 02:38] LABS: CKMB Creatine Kinase MB 10.7 ng/mL (0.3-3.6)
[2018-05-07 05:07] LABS: Absolute Lymphocytes (CBC) 1.9 K/uL (0.7-4.9); Absolute Monocytes 1.5 K/uL (0.1-1.3); Absolute Neutrophil 18.4 K/uL (1.8-8.0); Basophils % 0.2 % (0-1.3); Hematocrit 27.5 % (39.6-49.0); Lymphocytes % 8.8 % (15.3-44.8); MCH 29.9 pg (27.0-35.0); MCV 89.8 fL (80-100); MPV 11.5 fL (7.6-11.3); Monocytes % 6.7 % (3.3-12.3); RBC Red Blood Cell Count 3.06 M/uL (4.33-5.43)
[2018-05-07] MEDS: INSULIN -REGULAR HUMAN 50 UNIT/0.5 ML ML SQ SCH ×3 (05:27→17:50)
[2018-05-07 05:43] LABS: Albumin 2.4 g/dL (3.4-5.0); Bilirubin Total 2.1 mg/dL (0.2-1.0); Ferritin 150.6 ng/mL (26-388); Folic Acid, (Folate) 18.3 ng/mL (3.1-17.5); Potassium 4.8 mmol/L (3.5-5.1); Thyroid Stimulating Hormone 0.73 uIU/mL (0.36-3.74)
[2018-05-07 05:58] LABS: Phosphorus 0.9 mg/dL (2.5-4.9)
[2018-05-07] MEDS ORDERED: POTASSIUM PHOS 30 MM in NA CHLORIDE 0.9% 500 ML IV ONE (06:25)
[2018-05-07] MEDS: NACHLORIDE 0.45% 1,000 ML with NA BICARB 8.4% 75 MEQ IV SCH ×4 (07:41→17:49)
[2018-05-07] MEDS: LACTULOSE 20 GM/30 ML UCUP PO SCH ×3 (08:23→21:54)
[2018-05-07] MEDS: LORazepam 2 MG/ML VIAL IV PRN ×2 (08:39→17:51)
[2018-05-07] MEDS ORDERED: PANTOPRAZOLE 40 MG INJ IVP SCH (09:00)
[2018-05-07] MEDS: Meropenem 1,000 MG in NA CHLORIDE 0.9% 100 ML IV SCH ×2 (09:14→16:39)
[2018-05-07] MEDS: VANCOMYCIN 2 GM in NA CHLORIDE 0.9% 500 ML IVPB SCH ×2 (10:10→21:55)
--- NOTE | 2018-05-07 10:33 | CON ---
History Of Present Illness: Mr. Tilley is in the hospital because of obtundation. He has been foun d to have an ammonia level that is elevated. An ammonia level of 101 was recorded at one point. He has cirrhosis, I am not sure what the cause of the cirrhosis is. He has morbid obesity. He has janes l insufficiency and likely has an infection. When he came to the hospital, I think he was basically brought by other people, I do not think it was his choice to come or I do not think he came on his ow n power. There has been fever and diarrhea as well as lethargy and confusion. He has a past history of hypertension, diabetes, depression, sleep apnea, cirrhosis. He has a very elevated white blood c ell count with a left shift. I am not entirely sure what the source of infection is. The throat cul ture does reveal group A strep and a urine reveals a high colony count. I do not think we know what organism it is. We know it is gram-negative rods and the working diagnosis is that he has underlying cirrhosis with new onset urinary tract sepsis. I am asked to see him because of an elevated troponi n. The patient is not able to give any history himself, but the old records indicate that there has not been a history of CAD. He has had an echocardiogram, reveals normal ejection fraction, dilated l eft atrium. It is similar to older echocardiograms. He is not able to tell us whether he has had ch est pain. Physical Examination: General: He is 6 feet 8 inches, 489 pounds, obtunded, not intubated. Heart: Reveals a heart rate of about 110. It is regular. There is no gallop or murmur. Abdomen: Soft, very obese. I cannot palpate any organs or see if there is shifting dullness. Extremities: Reveal edema distal pulses diminished. Laboratory Data: A CT of the abdomen reveals liver cirrhosis. There is no mention of masses or flui d in the abdomen, ascites. His troponin levels have been 0.17, 0.12, and 0.09. CKs and CK-MBs are b oth high. Impression: My impression is that these muscle enzymes are elevated because of septicemia, cirrhosis , poor tissue perfusion. If the patient has an acute coronary syndrome, I think we can cross that of f the list of the causes of his mild troponin elevation. SH/MODL Voice ID: [id number] Report ID: [id number]
[2018-05-07] MEDS ORDERED: LORazepam 2 MG/ML VIAL IV ONE (11:40)
--- NOTE | 2018-05-07 13:03 | P.CNS ---
Date of Consult: 05/07/18 Reason for Consult: Altered mental status Primary Care Provider: Dr. Perez Chief Complaint: Altered mental status History of Present Illness: Patient is 52 years of age admitted with altered mental status came on rather suddenly admitted with the possibility of sepsis.. Patient is unresponsive he probably has underlying obstructive sleep apnea patient does snore has some apneic episodes very agitated possible cirrhosis of the liver Allergies Penicillins Adverse Reaction (Mild, Verified 03/12/17 16:56) Shortness of breath aspirin Adverse Reaction (Unknown, Verified 03/12/17 16:56) Shortness of breath Home Medications: Acetaminophen with Codeine [Acetaminophen-Cod #4 Tablet] 1 each PO Q6H PRN 05/06 Alogliptin Benzoate [Alogliptin] 1 tab PO DAILY 05/06/18 Cyclobenzaprine [Flexeril*] 1 tab PO TID 05/06/18 Empagliflozin [Jardiance] 10 mg PO DAILY 05/06/18 Furosemide [Lasix] 20 mg PO DAILY 05/06/18 Lisinopril/Hydrochlorothiazide [Lisinopril-Hctz 20-12.5 mg Tab] 2 each PO DAILY 05/06/18 Potassium Chloride 10 meq PO BID 05/06/18 Pregabalin [Lyrica] 50 mg PO BID 05/06/18 Vortioxetine Hydrobromide [Trintellix] 20 mg PO DAILY 05/06/18 - Past Medical/Surgical History Diabetic: Yes -: Hypertension -: Peripheral vascular disease -: Diabetes mellitus type 2 -: Morbid obesity -: Hyperlipidemia -: Depression -: Obstructive sleep apnea -: Cirrhosis -: Diabetic neuropathy -: Venous insufficiency -: Gastric bypass -: Bilateral knee surgery -: "venous reflux" had small veins closed "years ago" Psychosocial/ Personal History: The patient lives with his brother. He has no children. He is disabled. - Family History Father Medical History: Hypertension, Stroke - Social History Smoking Status: Unknown if ever smoked Alcohol use: No CD- Drugs: No Caffeine use: No Place of Residence: Home Review of Systems is unable to be obtained Physical Examination Temp Pulse Resp BP Pulse Ox 97.9 F 122 H 25 H 145/74 H 93 05/07/18 04:00 05/07/18 12:00 05/07/18 12:00 05/07/18 12:00 05/07/18 11:00 General: Unresponsive Neck: Supple Respiratory: Clear to auscultation bilaterally, Diminished Cardiovascular: No edema, Normal S1 S2 Gastrointestinal: Normal bowel sounds, Soft and benign - Problems (1) Altered mental status Current Visit: Yes Status: Acute Plan: Patient is 52 years of age admitted with altered mental status he is unresponsive vital signs satisfactory his abnormal renal function and LFTs hypoxic with hypercarbia elevated white count patient has cardiomegaly blood cultures positive for gram-negative rods patient is on vancomycin and meropenem patient has renal failure most likely prerenal and is improving with IV fluids Qualifiers: Altered mental status type: coma
--- NOTE | 2018-05-07 13:13 | RAD REPORT ---
EXAM DESCRIPTION: RAD - Abdomen 1 View (KUB) - 05/07/2018 12:35 pm CLINICAL HISTORY: NG tube placement COMPARISON: None. FINDINGS: Motion degraded examination shows no visible NG tube. [id number] spans from the lower m ost lung snyder to the iliac crests.
[2018-05-07] MEDS ORDERED: VANCOMYCIN 2 GM in NA CHLORIDE 0.9% 500 ML IVPB SCH (14:00)
[2018-05-07] MEDS ORDERED: NA CHLORIDE 0.9% 500 ML IV ONE (14:00)
[2018-05-07 14:14] LABS: Urine Appearance CLOUDY; Urine Bilirubin NEGATIVE (NEG); Urine Blood 1+ (NEG); Urine Color YELLOW; Urine Glucose 2+ (NEG); Urine Protein NEGATIVE (NEG)
[2018-05-07 14:20] LABS: Urine Microscopic Reflex ORDER UMIC
--- NOTE | 2018-05-07 14:26 | P.PN ---
Subjective Date of Service: 05/07/18 Primary Care Provider: Dr. Perez Chief Complaint: Altered mental status Subjective: Other (Still with altered mental status.) Physical Examination - Vital Signs Temperature: 97.9 F Blood Pressure: 145/74 Pulse: 122 Respirations: 25 Pulse Ox (%): 93 - Physical Exam General: Confused HEENT: Atraumatic Neck: Supple Respiratory: Clear to auscultation bilaterally, Normal air movement Cardiovascular: Abnormal pulses (Sinus tachycardia) Gastrointestinal: Normal bowel sounds, Soft and benign, Non-distended, No masses , No rebound, No guarding Musculoskeletal: No erythema, No tenderness, No warmth Integumentary: No erythema, No warmth, No cyanosis, Other (Chronic venous changes to the lower extremity) Neurological: Normal strength at 5/5 x4 extr, Normal tone - Studies Microbiology Data (last 24 hrs): 05/06/18 10:15 Throat Group A Streptococcus Rapid Screen - Final Medications List Reviewed: Yes Assessment & Plan - Problems (Diagnosis) (1) Severe sepsis Onset Date: 05/07/18 Current Visit: Yes Status: Acute Plan: Patient with severe sepsis with noted toxic encephalopathy. Likely UTI with bacteremia. Patient also noted with elevated ammonia with cirrhosis. Will continue with lactulose. Patient may require neurology evaluation. Will see how he responds with medication. Patient on antibiotic therapy. Continue IV fluids. Case discussed with pulmonology and nephrology. Renal function improved. White count improved. Continue with medication for agitation (2) Toxic encephalopathy Onset Date: 05/07/18 Current Visit: Yes Status: Acute Plan: Likely from UTI and bacteremia. There may be a component of hepatic encephalopathy as well. Will monitor closely. (3) Diabetes mellitus Onset Date: 05/07/18 Current Visit: Yes Status: Chronic Plan: Will provide sliding scale. We will hold his oral medication at this time. Qualifiers: Diabetes mellitus type: type 2 Diabetes mellitus assisted insulin use: without terminal carman use Diabetes mellitus complication status: with other specified complication Qualified Code(s): E11.69 - Type 2 diabetes mellitus with other specified complication (4) Diabetic neuropathy Onset Date: 05/07/18 Current Visit: Yes Status: Chronic Plan: Will hold his pain medication at this time. Qualifiers: Diabetes mellitus type: type 2 Diabetes mellitus complication detail: diabetic polyneuropathy Qualified Code(s): E11.42 - Type 2 diabetes mellitus with diabetic polyneuropathy (5) Acute renal failure Onset Date: 05/07/18 Current Visit: Yes Status: Acute Plan: Likely from severe sepsis, hypertension, volume depletion and UTI. Fluids adjusted by Nephrology. Case discussed with nephrology. (6) Elevated troponin Onset Date: 05/07/18 Current Visit: Yes Status: Acute Plan: Likely from severe sepsis. Cardiology consulted. Will check echocardiogram to evaluate for cardiomyopathy. (7) Depression Onset Date: 05/07/18 Current Visit: Yes Status: Acute Plan: Will hold medication at this time. Qualifiers: Depression Type: unspecified Qualified Code(s): F32.9 - Major depressive disorder, single episode, unspecified (8) Obstructive sleep apnea Onset Date: 05/07/18 Current Visit: Yes Status: Suspected Plan: Patient likely has sleep apnea. Will have pulmonology assess. Will maintain sats above 90%. (9) Cirrhosis Onset Date: 05/07/18 Current Visit: Yes Status: Suspected Plan: Liver cirrhosis noted on CT scan. Patient with hepatic encephalopathy. Continue lactulose. Patient may require NG tube. Qualifiers: Hepatic cirrhosis type: unspecified hepatic cirrhosis Ascites presence: without ascites Qualified Code(s): K74.60 - Unspecified cirrhosis of liver (10) Splenomegaly Onset Date: 05/07/18 Current Visit: Yes Status: Chronic Plan: Likely from cirrhosis. (11) Thrombocytopenia Onset Date: 05/07/18 Current Visit: Yes Status: Acute Plan: Likely from severe sepsis. Will monitor closely (12) Hypertension Onset Date: 05/07/18 Current Visit: Yes Status: Chronic Plan: Will provide IV medication as needed. Qualifiers: Hypertension type: essential hypertension Qualified Code(s): I10 - Essential (primary) hypertension (13) Hypotension Onset Date: 05/07/18 Current Visit: Yes Status: Acute Plan: Continue with IV fluids. Blood pressure improved. Will monitor closely. Qualifiers: Hypotension type: other hypotension type Qualified Code(s): I95.89 - Other hypotension (14) Hepatic encephalopathy Current Visit: Yes Status: Acute Plan: Will continue lactose. Patient may require NG tube for lactulose. Discharge Plan: Home Plan to discharge in: Greater than 2 days Time Spent Managing Pts Care (In Minutes): 55
[2018-05-07 14:38] LABS: Urine Bacteria 20-50 /HPF (NONE SEEN)
[2018-05-07 14:39] LABS: Urine Culture Reflex Order NOT NEEDED
--- NOTE | 2018-05-07 14:40 | PN ---
Date of Progress Note: 05/07/2018 Subjective: The patient is still obtunded, poorly responds, spontaneous breath. The patient was adm itted with acute kidney injury, multifactorial. Obstruction has been ruled out. It was secondary to metformin, DARY inhibitor, and diuresis superimposed with rhabdo. Physical Examination: Vital Signs: Blood pressure 145/74, pulse of 122. The patient had good urine output of 3200. Still negative of 1700. Chest: Clear to auscultation. Heart: S1, S2. Regular. Tachycardic. Abdomen: Soft. Morbidly obese. Extremities: Trace edema. Venous stasis, bilateral. Laboratory Data: WBC 21.8, H and H 9.1/27.5, platelet of 90. Sodium 145, potassium 4.8, bicarb 28, chloride 112, BUN 90, creatinine 1.3, blood sugar above 300, phosphorus 0.9, calcium 8.1. TSAT of 21 , ferritin of 150, CK still elevated of 1000. Procalcitonin of 18, TSH 0.7, PTH 28. Urinalysis stil l pending. Assessment And Plan: 1.Acute kidney injury, multifactorial, secondary to rhabdomyolysis, DARY inhibitor, superimposed with diuresis, metformin, Lasix, still look to me on the dry side. I am going to bolus the patient with 500 of normal saline. We will continue current bicarb drip given that the patient's kidney function improving and his CK is still elevated. We will follow up. 2.Hypertension, controlled, optimal. Keep holding DARY inhibitor and diuresis for the time being. 3.Hypophosphatemia. Continue supplement. We will follow up. The lab will be aggressive on the sup plement given the rhabdomyolysis picture. 4.Urinary tract infection, urosepsis. The patient was started on antibiotic including vancomycin an d meropenem, dose appropriate. We will follow up with primary. 5.Encephalopathy, possible secondary to postictal/hepatic encephalopathy. We will follow up with pr imary. 6.Rhabdomyolysis as above. Continue bicarb drip. We will bolus the patient. 7.Iron deficiency anemia. We will hold on iron supplement for the time being given the active infec tion. Medications: Current medications the patient on include; 1.Meropenem. 2.Vancomycin. 3.Albuterol. 4.Lorazepam. 5.Tylenol. 6.Lactulose. 7.Sodium bicarb. 8.Pantoprazole. Case discussed with Dr. Tamez, agreed on the plan. Discussed with the staff. STEFFANY Voice ID: [id number] Report ID: [id number]
[2018-05-07 16:38] LABS: Phosphorus 1.2 mg/dL (2.5-4.9); Potassium 4.7 mmol/L (3.5-5.1)
[2018-05-07] MEDS: ENOXAPARIN 30 MG/0.3 ML SQ SCH (16:38)
[2018-05-07] MEDS ORDERED: POTASSIUM PHOS 20 MEQ in NA CHLORIDE 0.9% 250 ML IV ONE (18:00)
[2018-05-07 18:24] LABS: Arterial Blood Carboxyhemoglob 2.3 % (0-1.5); Blood Gas Oxyhemoglobin 94.7 % (94-97); Blood O2 Saturation 97.4 % (92-98.5)
[2018-05-08] MEDS: INSULIN -REGULAR HUMAN 50 UNIT/0.5 ML ML SQ SCH ×3 (00:24→12:00)
[2018-05-08] MEDS: Meropenem 1,000 MG in NA CHLORIDE 0.9% 100 ML IV SCH ×3 (01:32→17:38)
[2018-05-08] MEDS: LORazepam 2 MG/ML VIAL IV PRN ×3 (01:51→18:21)
[2018-05-08] MEDS: NACHLORIDE 0.45% 1,000 ML with NA BICARB 8.4% 75 MEQ IV SCH ×2 (04:00)
[2018-05-08 05:37] LABS: Absolute Lymphocytes (CBC) 1.9 K/uL (0.7-4.9); Absolute Monocytes 1.8 K/uL (0.1-1.3); Absolute Neutrophil 12.9 K/uL (1.8-8.0); Basophils % 0.1 % (0-1.3); Hematocrit 24.7 % (39.6-49.0); Lymphocytes % 11.3 % (15.3-44.8); MCH 29.5 pg (27.0-35.0); MCV 90.9 fL (80-100); MPV 11.1 fL (7.6-11.3); Monocytes % 10.7 % (3.3-12.3); RBC Red Blood Cell Count 2.72 M/uL (4.33-5.43)
[2018-05-08 06:00] LABS: Albumin 2.4 g/dL (3.4-5.0); Magnesium 2.5 mg/dL (1.8-2.4); Phosphorus 1.3 mg/dL (2.5-4.9); Potassium 4.6 mmol/L (3.5-5.1)
[2018-05-08] MEDS ORDERED: PANTOPRAZOLE 40 MG INJ IVP ONE ×3 (06:16→07:00)
[2018-05-08] MEDS ORDERED: SODIUM CHLORIDE 0.9% 10ML INJ IV PRN (06:16)
[2018-05-08] MEDS ORDERED: POTASSIUM PHOS IN 0.9 % NACL 15 MMOL/250 ML BAG IV ONE (06:22)
[2018-05-08 06:57] LABS: Toxic Granulation PRESENT
[2018-05-08 06:58] LABS: Anisocytosis 1+; Platelet Estimate ADEQ; Polychromasia 2+
[2018-05-08 07:15] LABS: Blood Morphology Comment NOTED (NOT SEEN)
[2018-05-08] MEDS ORDERED: D50W 25 GM/50 ML SYRINGE IV PRN ×2 (07:18→13:28)
[2018-05-08] MEDS ORDERED: GLUCAGON 1 MG/VIAL IM PRN ×2 (07:18→13:28)
[2018-05-08] MEDS: PANTOPRAZOLE INJ 80 MG in NA CHLORIDE 0.9% 250 ML IV SCH ×2 (08:32→17:38)
[2018-05-08] MEDS: LACTULOSE 20 GM/30 ML UCUP PO SCH ×3 (08:34→20:07)
[2018-05-08] MEDS ORDERED: INSULIN DETEMIR 100 UNIT/1 ML INSULIN SQ SCH ×2 (09:00→21:00)
--- NOTE | 2018-05-08 10:46 | RAD REPORT ---
EXAM DESCRIPTION: RAD - Chest Single View - 05/08/2018 10:32 am CLINICAL HISTORY: PICC line placement COMPARISON: None. FINDINGS: Portable chest was obtained following placement of a right upper extremity PICC line. Exam has significant limitation due to motion and body habitus artifact. Best approximation of the PICC l ine tip is proximal SVC.
--- NOTE | 2018-05-08 11:12 | RAD REPORT ---
EXAM DESCRIPTION: CT - Head Brain Wo Cont - 05/08/2018 11:00 am CLINICAL HISTORY: Transient alteration of awareness, sepsis COMPARISON: CT head May 06 TECHNIQUE: Axial 5 mm thick images of the head were obtained without IV contrast. All CT scans are performed using dose optimization technique as appropriate and may include automated exposure control or mA/KV adjustment according to patient size. FINDINGS: No intracranial hemorrhage, mass, edema or shift of mid-line structures. No acute cortical based infarction. No cortical edema or sulcal effacement. No new area of abnormal attenuation to loc katelyn a nonhemorrhagic infarction. Slight heterogeneity of the cerebral white matter has not changed. No abnormal extra-axial fluid collections. Ventricles remain normal in size. Mastoid air cells and visualized portions of the paranasal sinuses are clear. No acute bony findings. IMPRESSION: Negative non-contrast CT head examination for new or acute finding.
[2018-05-08] MEDS: VANCOMYCIN 2 GM in NA CHLORIDE 0.9% 500 ML IVPB SCH (11:48)
--- NOTE | 2018-05-08 11:50 | P.PN ---
Subjective Date of Service: 05/08/18 Primary Care Provider: Dr. Perez Chief Complaint: Altered mental status Subjective: Other (Still no improvement. Patient still with encephalopathy. NG tube in place. Patient had melena overnight.) Physical Examination - Vital Signs Temperature: 98.9 F Blood Pressure: 125/80 Pulse: 118 Respirations: 22 Pulse Ox (%): 100 - Physical Exam General: Confused, Other (Still with agitation. Patient response to pain.) HEENT: Atraumatic Neck: Supple Respiratory: Clear to auscultation bilaterally, Normal air movement Cardiovascular: Abnormal pulses (Sinus tachycardia) Gastrointestinal: Normal bowel sounds, Soft and benign, Non-distended, No masses , No rebound, No guarding Musculoskeletal: No erythema, No tenderness, No warmth Integumentary: No erythema, No warmth, No cyanosis, Other (Chronic venous changes to the lower extremity.) Neurological: Other (Patient still confused.) Urinary: Wen catheter - Studies Microbiology Data (last 24 hrs): 05/06/18 10:15 Clean Catch Urine [place] Count - Final >100,000 CFU/ML. 05/06/18 10:15 Clean Catch Urine - Final Klebsiella Pneumoniae Medications List Reviewed: Yes Assessment & Plan - Problems (Diagnosis) (1) Severe sepsis Onset Date: 05/07/18 Current Visit: Yes Status: Acute Plan: Patient with severe sepsis with noted multifactorial encephalopathy. Urine culture positive for Klebsiella. Blood culture positive for Gram negative rods. Final culture results pending. Will discontinue vancomycin. Will continue with meropenem. White count improved. Patient still with encephalopathy. Will consult neurology to further evaluate. Repeat CT scan unremarkable. Will order EEG. NG tube in place. Patient getting lactulose due to elevated ammonia level and evidence of cirrhosis. GI consulted to further assess. Patient with melena this morning. Hemoglobin has dropped. Will recheck and monitor closely. Patient started on Protonix IV drip. Will discuss case with neurology, nephrology, GI and pulmonology. Patient with hypernatremia. Will discuss with nephrology. (2) Toxic encephalopathy Onset Date: 05/07/18 Current Visit: Yes Status: Acute Plan: Urine culture and blood culture positive. Will Dc vancomycin. We will continue with meropenem. Await blood culture results. (3) Diabetes mellitus Onset Date: 05/07/18 Current Visit: Yes Status: Chronic Plan: Will provide sliding scale. Will start basal insulin. Will continue aggressive sliding scale. Qualifiers: Diabetes mellitus type: type 2 Diabetes mellitus ferry terminal agent insulin use: without custodial use Diabetes mellitus complication status: with other specified complication Qualified Code(s): E11.69 - Type 2 diabetes mellitus with other specified complication (4) Diabetic neuropathy Onset Date: 05/07/18 Current Visit: Yes Status: Chronic Plan: Will hold his pain medication at this time. Qualifiers: Diabetes mellitus type: type 2 Diabetes mellitus complication detail: diabetic polyneuropathy Qualified Code(s): E11.42 - Type 2 diabetes mellitus with diabetic polyneuropathy (5) Acute renal failure Onset Date: 05/07/18 Current Visit: Yes Status: Acute Plan: Likely from severe sepsis, hypertension, volume depletion and UTI. Patient now with hypernatremia. Will discuss with nephrology to adjust IV fluids. (6) Elevated troponin Onset Date: 05/07/18 Current Visit: Yes Status: Acute Plan: Likely from severe sepsis. Cardiology consulted. No intervention needed at this time. Ejection fraction within normal range (7) Depression Onset Date: 05/07/18 Current Visit: Yes Status: Acute Plan: Will hold medication at this time. Qualifiers: Depression Type: unspecified Qualified Code(s): F32.9 - Major depressive disorder, single episode, unspecified (8) Obstructive sleep apnea Onset Date: 05/07/18 Current Visit: Yes Status: Suspected Plan: Patient likely has sleep apnea. Patient getting BiPAP at night. Maintain oxygen above 90%. (9) Cirrhosis Onset Date: 05/07/18 Current Visit: Yes Status: Suspected Plan: Liver cirrhosis noted on CT scan. NG tube in place. Will continue with lactulose. Will add Xifaxan. Patient with melena this morning. Will consult GI to further evaluate. Will monitor hemoglobin closely. Qualifiers: Hepatic cirrhosis type: unspecified hepatic cirrhosis Ascites presence: without ascites Qualified Code(s): K74.60 - Unspecified cirrhosis of liver (10) Splenomegaly Onset Date: 05/07/18 Current Visit: Yes Status: Chronic Plan: Likely from cirrhosis. (11) Thrombocytopenia Onset Date: 05/07/18 Current Visit: Yes Status: Acute Plan: Likely from severe sepsis. This has improved. Will continue to monitor closely. (12) Hypertension Onset Date: 05/07/18 Current Visit: Yes Status: Chronic Plan: Will continue to provide IV medication to maintain blood pressure. Qualifiers: Hypertension type: essential hypertension Qualified Code(s): I10 - Essential (primary) hypertension (13) Hypotension Onset Date: 05/07/18 Current Visit: Yes Status: Resolved Plan: Hypotension has resolved. Qualifiers: Hypotension type: other hypotension type Qualified Code(s): I95.89 - Other hypotension (14) Hepatic encephalopathy Current Visit: Yes Status: Acute Plan: NG tube in place. Will continue with lactulose. Will had Xifaxan. Await recommendations from GI. (15) Melena Current Visit: Yes Status: Acute Plan: Will monitor hemoglobin closely. Patient on IV Protonix drip. (16) GERD (gastroesophageal reflux disease) Current Visit: Yes Status: Chronic Plan: Patient now on Protonix drip due to melena. GI consulted. Patient may require GI intervention if this worsens. Will monitor this closely for now. (17) Hypernatremia Current Visit: Yes Status: Acute Plan: Will discuss with Nephrology to adjust IV fluids (18) Elevated liver function tests Current Visit: Yes Status: Acute Plan: Likely from cirrhosis. Continue as above. (19) Morbid obesity Current Visit: Yes Status: Chronic Plan: Continue as above. (20) Bacteremia Current Visit: Yes Status: Acute Plan: Continue as above. Discharge Plan: Home Plan to discharge in: Greater than 2 days Time Spent Managing Pts Care (In Minutes): 55
--- NOTE | 2018-05-08 12:01 | P.PN ---
Subjective Date of Service: 05/08/18 Primary Care Provider: Dr. Perez Chief Complaint: Respiratory failure unresponsive Patient's condition is stable he is tolerating BiPAP unresponsive hypernatremic blood cultures positive Review of Systems is unable to be obtained Physical Examination - Vital Signs Temperature: 98.9 F Blood Pressure: 125/80 Pulse: 118 Respirations: 22 Pulse Ox (%): 100 - Physical Exam General: Unresponsive HEENT: Other Respiratory: Clear to auscultation bilaterally Cardiovascular: Normal S1 S2, Edema - Studies Microbiology Data (last 24 hrs): 05/06/18 10:15 Clean Catch Urine [place] Count - Final >100,000 CFU/ML. 05/06/18 10:15 Clean Catch Urine - Final Klebsiella Pneumoniae Medications List Reviewed: Yes Assessment & Plan - Problems (Diagnosis) (1) Respiratory failure Current Visit: Yes Status: Acute Plan: Patient is in respiratory failure altered mental status probably combination of hepatic encephalopathy from is cirrhosis and sepsis in addition patient is also hypernatremic E coli isolated patient is on meropenem sensitivities pending start on IV thymine patient's renal function is improving he is very hyperglycemic abnormal liver function patient has some melenic stools is an IB pant up roses all these to be an insulin drip nephrology to adjust his IV fluids his oxygenation is satisfactory on BiPAP blood pressure satisfactory Qualifiers: Chronicity: acute
[2018-05-08] MEDS ORDERED: NACHLORIDE 0.45% 1,000 ML IV SCH (13:00)
--- NOTE | 2018-05-08 13:24 | CON ---
Date of Consultation: 05/08/2018 A 52-year-old male. ICU bed 2, Dr. Tamez. Reason For Consultation: Anemia, questionable history of cirrhosis. History Of Present Illness: Mr. Tilley is a 52-year-old gentleman, who does not give any history an d does not wake up even upon tactile stimulation. All the history is obtained from chart as well as talking to his nurse. Apparently, the patient was found with deranged mental status and he has been in the same way. In addition to that, he is getting sedation and narcotic that is additional reason. Upon arriving at the bedside nurse have not seen any apparent bleeding either in the form of hemate mesis, melena, or hematochezia. No nausea or vomiting has been reported. I do not know the patient' s baseline history other than above. Past Medical History: Morbid obesity, hypoxemia, diabetes. Past Surgical History: Unknown. Family History: Unknown. Social History: Unknown. Psych History: Unknown. Allergies: REVIEWED IN THE CHART. Medications: Reviewed in the chart. Review of Systems: Unknown due to patient's condition. He is unable to give any history. Physical Examination: General: Morbidly obese. Big framed man at this time, unresponsive to tactile and verbal stimuli. HEENT: No apparent trauma noted. Pallor noted. Neck: Supple. Trachea central in position. Chest: Poor air exchange bilaterally. Cardiac: S1, S 2 is normal. Abdomen: Hugely obese. Unable to reliably tell whether he has any organomegaly, hepat omegaly, splenomegaly, or any other ascites, however no apparent tenderness. No rebound tenderness. Bowel sounds are present. Dermatologic examination: Normal in all parts of the area except bilater al lower extremity venous stasis and discoloration of the lower extremity skin was noted. Neurologic al: As above. Diagnostic Data: WBC count is 35,000, hemoglobin and hematocrit 11 and 35, platelet count 98,000. I tatiana is low. Albumin is 2.4. CK is over 1000. AST ALT is 135/[address] scan also noted. Impression, Plan, And Recommendation: Mr. Tilley is a 52-year-old gentleman with multiple medical p roblems. At this time, he has also gram-negative septicemia. Underlying cirrhosis due to morbid obe sity cannot be ruled out. However, at this time, I am unable to assess completely what is going on. In addition to that, he has multisystem failure. Appears to be sepsis syndrome is the main problem at this time. It is also hard to tell whether he has any baseline anemia or this anemia is due to se psis syndrome and hemolysis. Also low platelet count could be associated both with liver disease as well as sepsis. In this acute stage at this time, sepsis is the primary importance and that needs to be treated. Onc e he recovers from current condition, his liver status and other condition could be assessed to a mor e reliable degree. At this time, the patient is unresponsive and so he is beyond any GI intervention given his clinical condition. The case was extensively discussed with Dr. Tamez. He is agreeable. SEVERIANO/MARIANA Voice ID: [id number] Report ID: [id number]
[2018-05-08] MEDS ORDERED: INSULIN -REGULAR HUMAN 100 UNIT in NA CHLORIDE 0.9% 100 ML IV SCH (13:30)
[2018-05-08] MEDS: THIAMINE 200 MG/2 ML INJ IVP SCH (13:38)
[2018-05-08] MEDS: INSULIN -REGULAR HUMAN 100 UNIT in NA CHLORIDE 0.9% 100 ML IV SCH ×2 (14:57→22:50)
[2018-05-08] MEDS: ENOXAPARIN 30 MG/0.3 ML SQ SCH (17:37)
[2018-05-08 18:11] LABS: Urine Appearance CLOUDY; Urine Bilirubin NEGATIVE (NEG); Urine Blood 1+ (NEG); Urine Color DK YELLOW; Urine Glucose 1+ (NEG); Urine Protein NEGATIVE (NEG)
[2018-05-08 18:20] LABS: Urine Microscopic Reflex ORDER UMIC
[2018-05-08 18:27] LABS: Potassium 4.1 mmol/L (3.5-5.1)
[2018-05-08 18:28] LABS: Urine Amorphous Sediment TRACE /HPF (NONE SEEN); Urine Bacteria <20 /HPF (NONE SEEN); Urine Culture Reflex Order REFLEXED; Urine Mucus SLIGHT /HPF (NONE SEEN)
[2018-05-08] MEDS ORDERED: THIAMINE 200 MG/2 ML INJ IVP ONE (19:41)
[2018-05-08] MEDS: NACHLORIDE 0.45% 1,000 ML IV SCH ×2 (20:00→22:36)
[2018-05-08] MEDS ORDERED: D5W 1,000 ML IV SCH (20:00)
[2018-05-08] MEDS ORDERED: D5W 1,000 ML IV ONE (20:03)
[2018-05-08] MEDS: Rifaximin 550 MG Tab PO SCH (20:08)
[2018-05-08 21:51] LABS: BETA HYDROXYBUTYRATE 1.1 mg/dL (0.2-2.81)
[2018-05-09] MEDS: Meropenem 1,000 MG in NA CHLORIDE 0.9% 100 ML IV SCH ×3 (00:10→17:38)
--- NOTE | 2018-05-09 03:46 | CON ---
Reason For Consultation: Consultation called by Dr. Tamez because of altered mental status. History Of Present Illness: Mr. Tilley is a 52-year-old patient who was admitted to [facility] on May 06, 2018, with increasing confusion over a few days. He was found to have se rosalba elevation of ammonia and sepsis. His head CT scan was unremarkable for any acute ischemic or he morrhagic change. The patient has been treated with the IV antibiotics, lactulose and hydration and is actually making slow recovery. There is no evidence of any focal deficits either by history, by t he reports of the ICU staff or Dr. Tamez and his head CT scan done twice on the 06 of May and on the which is earlier today, do not show any acute ischemic or hemorrhagic change. His echocard iogram shows no significant abnormalities with ejection fraction 63%. His chest x-ray shows some elkins itations due to his excessive body mass index, but there is a PICC line that was noted to be in the s uperior vena cava. The patient has been somewhat lethargic, but on stimulation staff notes he moves arms and legs equall y well. He does have equal pupils. Past Medical History: Hypertension, peripheral vascular disease, diabetes mellitus type 2, morbid ob esity, dyslipidemia, depression, obstructive sleep apnea, alcoholic liver cirrhosis, diabetic neuropa thy, venous insufficiency. Past Surgical History: Gastric bypass, bilateral knee surgery and venous surgery. Allergies: PENICILLIN AND ASPIRIN. Medications At Home: Coreg 6.25 mg twice daily, duloxetine 60 mg daily, Lasix 20 mg daily, Gralise 6 00 mg 3 times a day, lisinopril hydrochlorothiazide 20/12.5 two times daily, metformin 1 daily, Duane nix 40 mg daily, potassium 20 mEq daily, primidone 50 mg daily, Tylenol No. 3 one every 6 hours as ne eded, Flexeril 10 mg twice daily, vitamin B12 5000 mcg sublingual daily, Synthroid 0.125 mg daily. Family History: Stroke in father. Social History: No recent alcohol, tobacco, or IV drug use. The patient resides at home. Review of Systems: Unable to perform review of systems as patient is on CPAP and poorly responsive to verbal stimulation and not able to answer questions at this point. Physical Examination: Vital Signs: Blood pressure 116/72, pulse of 118, respiratory rate 18, temperature 98.1, oxygen satu ration 100%, weight 489 pounds, height 68 inches, BMI 53.7. General: Mr. Tilley is resting in bed in ICU with CPAP. He does spontaneously move his arms and le gs equally well and move his head from [id number], does withdraw focally with stimulation in the ar ms and legs and on attempt at each eye, he closes that eye more tightly. Respiratory: He does have good air movement bilaterally. Extremities: He does not appear to have any clubbing, cyanosis or edema. Neurologic: As indicated, the patient is somewhat lethargic, poorly responsive, but does have sponta neous movement of his arms and legs and on stimulation, focally withdrawals each side and turns head side to side equally. He has normal tone in the upper and lower extremities. He has normal bulk. H e has symmetric decreased reflexes in the arms and legs. Unable to assess coordination or gait. Laboratory Studies: White blood cell count 16.5, down from 35.3 two days ago; neutrophils 77.9, down from 82.2. His hemoglobin is 7.8, hematocrit 24.0. Last blood gas from yesterday shows pH 7.43, pC O2 of 41.6, PO2 89.2. Chemistries: His glucose has been elevated to 433 earlier today and lactic ac id elevated at 2.7. Ammonia is improved to 82 from 119, creatine kinase is 455. His drug screen is negative. Assessment: Mr. Tilley is a 52-year-old patient with multifactorial reasons for encephalopathy rela yue to significant elevation of ammonia along with sepsis. His clean-catch urine did show Klebsiella pneumoniae. His actual blood cultures on aerobic cultures did show positive gram-negative rods and anaerobic did show gram-negative rods as well, so his blood cultures are positive and he is on antibi otics, which is rifaximin 550 mg twice daily. Also, he is on lactulose 10 g 3 times daily. He is on DVT prophylaxis 30 mg subcutaneously daily. His head CT scan does not show any acute ischemic or he morrhagic changes twice and he has no focal findings on neurological deficits on examination. Plan: 1.Continue with aggressive management of elevated ammonia as there is a contributing factor which is encephalopathy. 2.Continue with hydration and antibiotics as per recommendations, which are per standard protocol. 3.EEG did show diffusely slow study consistent with encephalopathy; however, it is nonspecific. 4.The patient's prognosis is fair and he should actually recover fairly well over the next 3 to 5 da ys. RAYNE/MARIANA Voice ID: [id number] Report ID: [id number]
[2018-05-09] MEDS: PANTOPRAZOLE INJ 80 MG in NA CHLORIDE 0.9% 250 ML IV SCH ×2 (03:56→13:48)
--- NOTE | 2018-05-09 04:00 | PN ---
Date of Progress Note: 05/08/2018 Chief Complaint: Acute kidney injury. History Of Present Illness: Acute kidney injury, multifactorial, nonoliguric secondary to rhabdomyolysis with renal hypoperfusion. The patient was found to have mild lactic acidosis, and lactic acid has improved and is stabilizing and is marginally elevated. The patient was taken off DARY inhibitor and Lasix because of acute kidney injury. The patient has history of diabetes and is on insulin drip for severe hyperglycemia. Beta-hydroxybutyrate was checked today and is normal negative. There is no evidence of DKA. The patient was treated with supplementation for hypophosphatemia. The patient is on antibiotics for urinary tract infection, is started on vancomycin and meropenem. Encephalopathy; the patient remains encephalopathic, postictal and has hepatic encephalopathy. Ammonia level is improving. The patient developed progressively worse hypernatremia. The patient is started on free water via the tube feeding and is on IV fluids for blood pressure support. Is receiving half-normal saline. Review of Systems: Unobtainable. The patient is encephalopathic and he is on BiPAP. Physical Examination: Lungs: Diminished breath sounds at bases. Heart: S1, S2. Tachycardia. Abdomen: Morbidly obese. Extremities: Edema present in lower extremities. Laboratory Data: Lab work, hemoglobin 8.0, WBC 16.5, platelet count is 148, 000. Sodium 158, potassium 4.1, chloride 122, CO2 32, BUN 89, creatinine 1.8, calcium 7.8, glucose 443. Impression And Plan: Acute kidney injury, nonoliguric. Continue IV fluids. The patient has hypernatremia. Fluids were adjusted for hypernatremia correction. The patient is receiving lactulose for hyperammonemia. Altered mental status is due to encephalopathy. Workup pending with neurologist for altered mental status. The patient has morbid obesity, acute kidney injury moderately severe with underlying chronic kidney disease with diabetes mellitus, possible focal segmental glomerulosclerosis. The patient has hepatorenal syndrome and at this point, blood pressure is stable and the patient is responding to IV fluids. Continue current treatment with IV fluids. i spent total 36 min incuding 26 min to coordinate care plan. LEIF/MARIANA Voice ID: [id number] Report ID: [id number] [facility]
[2018-05-09 05:02] LABS: Absolute Lymphocytes (CBC) 1.6 K/uL (0.7-4.9); Absolute Monocytes 2.1 K/uL (0.1-1.3); Absolute Neutrophil 10.7 K/uL (1.8-8.0); Basophils % 1.6 % (0-1.3); Lymphocytes % 10.7 % (15.3-44.8); MCH 29.6 pg (27.0-35.0); MCV 93.1 fL (80-100); MPV 10.7 fL (7.6-11.3); Monocytes % 14.6 % (3.3-12.3); RBC Red Blood Cell Count 2.47 M/uL (4.33-5.43)
[2018-05-09 05:35] LABS: Albumin 2.3 g/dL (3.4-5.0); Bilirubin Total 1.6 mg/dL (0.2-1.0); Magnesium 2.4 mg/dL (1.8-2.4); Phosphorus 1.4 mg/dL (2.5-4.9); Potassium 3.7 mmol/L (3.5-5.1); Protein, Total 5.9 g/dL (6.4-8.2)
[2018-05-09] MEDS: D5W 1,000 ML IV SCH ×4 (06:32→22:44)
[2018-05-09] MEDS ORDERED: POTASSIUM PHOS IN 0.9 % NACL 15 MMOL/250 ML BAG IV ONE (07:00)
--- NOTE | 2018-05-09 07:02 | P.PN ---
Subjective Date of Service: 05/09/18 Primary Care Provider: Dr. Perez Chief Complaint: Respiratory failure unresponsive Subjective: Other (Patient still confused and altered.) Physical Examination - Vital Signs Temperature: 98.6 F Blood Pressure: 123/61 Pulse: 122 Respirations: 23 Pulse Ox (%): 95 - Physical Exam General: Confused (Patient still confused and altered.) HEENT: Atraumatic Neck: Supple Respiratory: Clear to auscultation bilaterally, Normal air movement Cardiovascular: Abnormal pulses (Sinus tachycardia) Gastrointestinal: Normal bowel sounds, Soft and benign, Non-distended, No tenderness, No masses, No rebound, No guarding Musculoskeletal: No erythema, No tenderness, No warmth Integumentary: No tenderness/swelling, No erythema, No warmth, No cyanosis Neurological: Normal strength at 5/5 x4 extr, Other (Confused and altered. Patient able to move all 4s appropriately.) Urinary: Wen catheter - Studies Microbiology Data (last 24 hrs): 05/06/18 10:15 Clean Catch Urine [place] Count - Final >100,000 CFU/ML. 05/06/18 10:15 Clean Catch Urine - Final Klebsiella Pneumoniae Medications List Reviewed: Yes Assessment & Plan - Problems (Diagnosis) (1) Severe sepsis Onset Date: 05/07/18 Current Visit: Yes Status: Acute Plan: Patient with severe sepsis with noted multifactorial encephalopathy. Urine culture positive for Klebsiella. Blood culture still pending but shows Gram negative rods. Patient currently on Xifaxan for his suspected hepatic encephalopathy and meropenem. EEG did showed nonspecific changes for encephalopathy. Case discussed with Neurology. Continue with antibiotics. Nephrology adjusting IV fluids due to hypernatremia. Patient with anemia. Will continue to monitor hemoglobin closely. Patient may require blood transfusion. GI evaluated patient. No indication for intervention at this time. Patient on Protonix drip. Patient on BiPAP. Pulmonology is following. (2) Toxic encephalopathy Onset Date: 05/07/18 Current Visit: Yes Status: Acute Plan: Urine culture and blood culture positive. Patient on meropenem. Await blood culture results (3) Diabetes mellitus Onset Date: 05/07/18 Current Visit: Yes Status: Chronic Plan: Patient on insulin drip to maintain adequate control of diabetes. Qualifiers: Diabetes mellitus type: type 2 Diabetes mellitus group home insulin use: without intermediate designer use Diabetes mellitus complication status: with other specified complication Qualified Code(s): E11.69 - Type 2 diabetes mellitus with other specified complication (4) Diabetic neuropathy Onset Date: 05/07/18 Current Visit: Yes Status: Chronic Plan: Will hold his pain medication at this time. Qualifiers: Diabetes mellitus type: type 2 Diabetes mellitus complication detail: diabetic polyneuropathy Qualified Code(s): E11.42 - Type 2 diabetes mellitus with diabetic polyneuropathy (5) Acute renal failure Onset Date: 05/07/18 Current Visit: Yes Status: Acute Plan: Likely from severe sepsis, volume depletion. Patient also with hypernatremia. Nephrology adjusting IV fluids. (6) Elevated troponin Onset Date: 05/07/18 Current Visit: Yes Status: Acute Plan: Likely from severe sepsis. Cardiology consulted. No intervention needed at this time. Ejection fraction within normal range (7) Depression Onset Date: 05/07/18 Current Visit: Yes Status: Acute Plan: Will hold medication at this time. Qualifiers: Depression Type: unspecified Qualified Code(s): F32.9 - Major depressive disorder, single episode, unspecified (8) Obstructive sleep apnea Onset Date: 05/07/18 Current Visit: Yes Status: Suspected Plan: Patient likely has sleep apnea. Continue with BiPAP and maintain sats above 90% . (9) Cirrhosis Onset Date: 05/07/18 Current Visit: Yes Status: Suspected Plan: Liver cirrhosis noted on CT scan. NG tube in place. Will continue with lactulose. Xifaxan added. Patient is having bowel movement this morning. Will continue monitor closely. GI recommends no intervention at this time. Cirrhosis can be further addressed once the patient is more stable. Qualifiers: Hepatic cirrhosis type: unspecified hepatic cirrhosis Ascites presence: without ascites Qualified Code(s): K74.60 - Unspecified cirrhosis of liver (10) Splenomegaly Onset Date: 05/07/18 Current Visit: Yes Status: Chronic Plan: Likely from cirrhosis. (11) Thrombocytopenia Onset Date: 05/07/18 Current Visit: Yes Status: Acute Plan: Likely from severe sepsis. Will continue monitor (12) Hypertension Onset Date: 05/07/18 Current Visit: Yes Status: Chronic Plan: Will continue to provide IV medication to maintain blood pressure. Qualifiers: Hypertension type: essential hypertension Qualified Code(s): I10 - Essential (primary) hypertension (13) Hypotension Onset Date: 05/07/18 Current Visit: Yes Status: Resolved Plan: Hypotension has resolved. Qualifiers: Hypotension type: other hypotension type Qualified Code(s): I95.89 - Other hypotension (14) Hepatic encephalopathy Current Visit: Yes Status: Acute Plan: NG tube in place. Will continue with lactulose. Xifaxan has been added. GI recommends no intervention at this time. (15) Melena Current Visit: Yes Status: Acute Plan: Will monitor hemoglobin closely. Patient on IV Protonix drip. Patient may require blood transfusion if hemoglobin less than 7. (16) GERD (gastroesophageal reflux disease) Current Visit: Yes Status: Chronic Plan: Patient now on Protonix drip due to melena. GI recommends no intervention at this time due to current situation. Patient may require intervention if condition worsens. (17) Hypernatremia Current Visit: Yes Status: Acute Plan: Case discussed with nephrology yesterday. Nephrology continues to adjust IV fluids. (18) Elevated liver function tests Current Visit: Yes Status: Acute Plan: Likely from cirrhosis. Continue as above. (19) Morbid obesity Current Visit: Yes Status: Chronic Plan: Continue as above. (20) Bacteremia Current Visit: Yes Status: Acute Plan: Continue as above. Discharge Plan: Home Plan to discharge in: Greater than 2 days Time Spent Managing Pts Care (In Minutes): 55
[2018-05-09] MEDS: THIAMINE 200 MG/2 ML INJ IVP SCH (08:29)
[2018-05-09] MEDS: Rifaximin 550 MG Tab PO SCH ×2 (08:30→21:06)
[2018-05-09] MEDS ORDERED: LACTULOSE 20 GM/30 ML UCUP PO SCH (09:00)
[2018-05-09] MEDS: INSULIN -REGULAR HUMAN 100 UNIT in NA CHLORIDE 0.9% 100 ML IV SCH ×3 (09:32→22:33)
[2018-05-09] MEDS: LORazepam 2 MG/ML VIAL IV PRN (09:53)
[2018-05-09 10:38] LABS: Potassium 5.9 mmol/L (3.5-5.1)
--- NOTE | 2018-05-09 11:27 | RAD REPORT ---
EXAM DESCRIPTION: RAD - Chest Single View - 05/09/2018 8:49 am CLINICAL HISTORY: Enteric tube placement Chest pain. COMPARISON: Chest Single View dated 05/08/2018; Abdomen 1 View (KUB) dated 05/07/2018; Chest Single Vie w dated 05/06/2018; Chest Single View dated 03/12/2017 FINDINGS: The enteric tube is difficult to visualize due to significant soft tissue artifact, howeve r the tip is probably in the distal esophagus region.
[2018-05-09] MEDS ORDERED: VANCOMYCIN 2 GM in NA CHLORIDE 0.9% 500 ML IVPB SCH (12:00)
[2018-05-09 13:16] LABS: Absolute Lymphocytes (CBC) 2.2 K/uL (0.7-4.9); Absolute Monocytes 2.9 K/uL (0.1-1.3); Basophils % 0.2 % (0-1.3); Hematocrit 22.4 % (39.6-49.0); Lymphocytes % 9.8 % (15.3-44.8); MCH 29.5 pg (27.0-35.0); MCV 93.3 fL (80-100); MPV 10.7 fL (7.6-11.3); Monocytes % 13.1 % (3.3-12.3)
[2018-05-09 13:38] LABS: Anisocytosis 2+; Blood Morphology Comment NOTED (NOT SEEN); Platelet Estimate ADEQ; Polychromasia 2+
[2018-05-09 13:41] LABS: Potassium 3.5 mmol/L (3.5-5.1)
[2018-05-09] MEDS: VANCOMYCIN 2 GM in NA CHLORIDE 0.9% 500 ML IVPB SCH (13:48)
--- NOTE | 2018-05-09 14:01 | PN ---
Date of Progress Note: 05/09/2018 Chief Complaint: Acute kidney injury multifactorial, nonoliguric secondary to rhabdomyolysis with renal hypoperfusion causing prerenal azotemia as well as acute tubular necrosis with nonoliguric urine output. The patient was found to have severe hyperglycemia as well as hyperammonemia and was started on insulin drip as well as lactulose to control ammonia level. The patient remains in ICU. He is on BiPAP. Sodium level has risen over the last 24 hours despite aggressive hydration with tube feeding as well as IV fluids. IV fluids were modified today and the patient is to have free water flushes with tube feeding every 90 minutes as well as he will be started on D5W 200 cc/hour. Blood work will be evaluated 10 a.m. today. Review of Systems: Unobtainable. The patient is lethargic and remains on BiPAP. Physical Examination: Lungs: Clear to auscultation bilaterally. Heart: S1, S2. Abdomen: Obese, soft. Extremities: Minimal edema. Laboratory Data: Sodium 162, potassium 3.7, chloride 126, carbon dioxide 32, BUN 72, creatinine 1.5, glucose 220, phosphorus 1.4, calcium 7.8, AST 254, ALT 299, ammonia level 54, total protein 5.9, albumin 2.3. Impression And Plan: Severe hypernatremia, has worsened over the last 24 hours due to massive diarrhea. Lactulose currently on hold. Ammonia level is controlled. Thus, lactulose is on hold to avoid hypotonic fluid loss with GI. The patient will have IV fluids with D5W. Plan is to monitor glucose level and insulin adjustment. The patient will have free water flushes with tube feeding. The patient has history of morbid obesity. He developed acute kidney injury due to multifactorial etiology. CK level was elevated corresponding with mild rhabdomyolysis. CK level was down from 9 to 455. The patient was found to have lactic acidosis. Currently, lactic acid is pending and yesterday lactic acid was down to 2.7. Continue to monitor electrolytes closely. The patient will be treated for hypophosphatemia. Phosphorus level today is below normal ranges and patient is to have potassium replacement . Re-evaluate electrolyte adjustment as needed according to the lab results. I spent total 36 min including 26 min to coordinate care plan. LEIF/MARIANA Voice ID: [id number] Report ID: [id number] MTDD
[2018-05-09 16:30] LABS: HIV 1/2 Antibody Diff Not indicated.; HIV AG/AB 4TH GEN Non-reactive (Non-reactive)
[2018-05-09] MEDS: ENOXAPARIN 30 MG/0.3 ML SQ SCH (17:38)
[2018-05-09 18:36] LABS: Hematocrit 22.1 % (39.6-49.0)
[2018-05-09] MEDS ORDERED: FUROSEMIDE 20 MG/ 2ML VIAL IV ONE (18:44)
[2018-05-09 21:14] LABS: Potassium 3.5 mmol/L (3.5-5.1)
[2018-05-09] MEDS ORDERED: NA CHLORIDE 0.9% 250 ML ONE (22:47)
[2018-05-10] MEDS: VANCOMYCIN 2 GM in NA CHLORIDE 0.9% 500 ML IVPB SCH ×2 (00:30→11:54)
[2018-05-10] MEDS: PANTOPRAZOLE INJ 80 MG in NA CHLORIDE 0.9% 250 ML IV SCH ×3 (00:30→23:23)
[2018-05-10] MEDS: Meropenem 1,000 MG in NA CHLORIDE 0.9% 100 ML IV SCH ×3 (00:30→16:38)
[2018-05-10] MEDS: LORazepam 2 MG/ML VIAL IV PRN (01:46)
[2018-05-10 03:59] LABS: Hematocrit 20.1 % (39.6-49.0)
[2018-05-10] MEDS: D5W 1,000 ML IV SCH ×5 (05:46→16:26)
[2018-05-10 05:50] LABS: Absolute Lymphocytes (CBC) 2.2 K/uL (0.7-4.9); Absolute Monocytes 2.4 K/uL (0.1-1.3); Absolute Neutrophil 15.3 K/uL (1.8-8.0); Basophils % 0.1 % (0-1.3); Eosinophils % 0.2 % (0-4.4); Hematocrit 23.3 % (39.6-49.0); MCH 29.7 pg (27.0-35.0); MCV 93.4 fL (80-100); MPV 10.8 fL (7.6-11.3); Monocytes % 12.3 % (3.3-12.3); RBC Red Blood Cell Count 2.49 M/uL (4.33-5.43)
[2018-05-10 05:52] LABS: Albumin 2.1 g/dL (3.4-5.0); Bilirubin Total 1.9 mg/dL (0.2-1.0); Magnesium 2.3 mg/dL (1.8-2.4); Phosphorus 1.7 mg/dL (2.5-4.9); Potassium 3.4 mmol/L (3.5-5.1); Protein, Total 5.6 g/dL (6.4-8.2)
--- NOTE | 2018-05-10 07:15 | P.PN ---
Subjective Date of Service: 05/10/18 Primary Care Provider: Dr. Perez Chief Complaint: Respiratory failure unresponsive Subjective: Other (Patient still confused. Patient melena. Heart rate better controlled.) Physical Examination - Vital Signs Temperature: 97.4 F Blood Pressure: 152/73 Pulse: 95 Respirations: 20 Pulse Ox (%): 100 - Physical Exam General: Confused (Patient confused and altered.) HEENT: Atraumatic Neck: Supple Respiratory: Clear to auscultation bilaterally, Normal air movement Cardiovascular: Normal pulses, Regular rate/rhythm Gastrointestinal: Normal bowel sounds, Soft and benign, Non-distended, No tenderness, No masses, No rebound, No guarding Musculoskeletal: No erythema, No tenderness, No warmth Integumentary: No tenderness/swelling, No erythema, No warmth, No cyanosis Neurological: Normal strength at 5/5 x4 extr, Normal tone, Other (Patient confused and altered.) - Studies Microbiology Data (last 24 hrs): 05/06/18 10:15 Throat Culture & Sensitivity - Final Staph Aureus Medications List Reviewed: Yes Assessment & Plan - Problems (Diagnosis) (1) Severe sepsis Onset Date: 05/07/18 Current Visit: Yes Status: Acute Plan: Patient with severe sepsis with noted multifactorial encephalopathy. Urine culture positive for Klebsiella. Blood culture positive for Klebsiella. Sputum culture positive for Staph aureus. Medications have been adjusted. Patient currently on meropenem and vancomycin. Patient currently on Xifaxan and lactulose for his suspected hepatic encephalopathy. Ammonia level improved. Liver function tests also improved. Hemoglobin was low yesterday. Patient received 1 unit of blood. Patient had some melena. Patient on Protonix IV drip. Will continue monitor hemoglobin. Patient may require another transfusion. Nephrology adjusting IV fluids for hypernatremia. Patient continues on BiPAP. Heart rate improved. Overall patient appears slightly improved. Will continue current treatment. (2) Toxic encephalopathy Onset Date: 05/07/18 Current Visit: Yes Status: Acute Plan: Blood and urine culture positive for Klebsiella. Patient on meropenem. Sputum shows Staph aureus. Currently on vancomycin. (3) Diabetes mellitus Onset Date: 05/07/18 Current Visit: Yes Status: Chronic Plan: Patient on insulin drip to maintain adequate control of diabetes. Qualifiers: Diabetes mellitus type: type 2 Diabetes mellitus [facility] insulin use: without buttermaker continuous churn use Diabetes mellitus complication status: with other specified complication Qualified Code(s): E11.69 - Type 2 diabetes mellitus with other specified complication (4) Diabetic neuropathy Onset Date: 05/07/18 Current Visit: Yes Status: Chronic Plan: Will hold his pain medication at this time. Qualifiers: Diabetes mellitus type: type 2 Diabetes mellitus complication detail: diabetic polyneuropathy Qualified Code(s): E11.42 - Type 2 diabetes mellitus with diabetic polyneuropathy (5) Acute renal failure Onset Date: 05/07/18 Current Visit: Yes Status: Acute Plan: Likely from severe sepsis, volume depletion. Patient also with hypernatremia. Nephrology adjusting IV fluids. (6) Elevated troponin Onset Date: 05/07/18 Current Visit: Yes Status: Acute Plan: Likely from severe sepsis. Cardiology consulted. No intervention needed at this time. Ejection fraction within normal range (7) Depression Onset Date: 05/07/18 Current Visit: Yes Status: Acute Plan: Will hold medication at this time. Qualifiers: Depression Type: unspecified Qualified Code(s): F32.9 - Major depressive disorder, single episode, unspecified (8) Obstructive sleep apnea Onset Date: 05/07/18 Current Visit: Yes Status: Suspected Plan: Patient likely has sleep apnea. Continue with BiPAP and maintain sats above 90% . (9) Cirrhosis Onset Date: 05/07/18 Current Visit: Yes Status: Suspected Plan: Liver cirrhosis noted on CT scan. NG tube in place. Will continue with lactulose and Xifaxan. Ammonia level improved. Liver function slowly improving. Patient required he blood. Will continue to monitor blood count. Patient may require a EGD once he is more alert. Will discuss with GI. Qualifiers: Hepatic cirrhosis type: unspecified hepatic cirrhosis Ascites presence: without ascites Qualified Code(s): K74.60 - Unspecified cirrhosis of liver (10) Splenomegaly Onset Date: 05/07/18 Current Visit: Yes Status: Chronic Plan: Likely from cirrhosis. (11) Thrombocytopenia Onset Date: 05/07/18 Current Visit: Yes Status: Acute Plan: Likely from severe sepsis. Will continue monitor (12) Hypertension Onset Date: 05/07/18 Current Visit: Yes Status: Chronic Plan: Will continue to provide IV medication to maintain blood pressure. Qualifiers: Hypertension type: essential hypertension Qualified Code(s): I10 - Essential (primary) hypertension (13) Hypotension Onset Date: 05/07/18 Current Visit: Yes Status: Resolved Plan: Hypotension has resolved. Qualifiers: Hypotension type: other hypotension type Qualified Code(s): I95.89 - Other hypotension (14) Hepatic encephalopathy Current Visit: Yes Status: Acute Plan: NG tube in place. Will continue with lactulose and Xifaxan. Ammonia and liver function tests improved. Will continue to monitor closely. (15) Melena Current Visit: Yes Status: Acute Plan: Will monitor hemoglobin closely. Patient on IV Protonix drip. Patient received 1 unit of blood yesterday. Patient may require another unit if hemoglobin less than 7.0. (16) GERD (gastroesophageal reflux disease) Current Visit: Yes Status: Chronic Plan: Patient now on Protonix drip due to melena. GI recommends no intervention at this time due to current situation. Patient may require intervention if condition worsens. (17) Hypernatremia Current Visit: Yes Status: Acute Plan: Nephrology continues to adjust IV fluids. (18) Elevated liver function tests Current Visit: Yes Status: Acute Plan: Likely from cirrhosis. Overall improved. Continue as above. (19) Morbid obesity Current Visit: Yes Status: Chronic Plan: Continue as above. (20) Bacteremia Current Visit: Yes Status: Acute Plan: Continue as above. Patient currently on meropenem and vancomycin. Discharge Plan: Home Plan to discharge in: Greater than 2 days Time Spent Managing Pts Care (In Minutes): 55
[2018-05-10] MEDS: INSULIN -REGULAR HUMAN 100 UNIT in NA CHLORIDE 0.9% 100 ML IV SCH ×2 (07:25→17:17)
[2018-05-10] MEDS ORDERED: KCL 20 MEQ/100 mL IVPB 20 MEQ/100 ML BAG IV SCH (08:00)
[2018-05-10] MEDS: Rifaximin 550 MG Tab PO SCH ×2 (09:23→21:39)
[2018-05-10] MEDS: THIAMINE 200 MG/2 ML INJ IVP SCH (09:24)
[2018-05-10] MEDS: SPIRONOLACTONE 25 MG TABLET FT SCH (09:24)
[2018-05-10] MEDS ORDERED: POTASSIUM PHOS IN 0.9 % NACL 15 MMOL/250 ML BAG IV ONE (09:30)
--- NOTE | 2018-05-10 10:00 | P.PN ---
Subjective Date of Service: 05/10/18 Primary Care Provider: Dr. Perez Chief Complaint: Respiratory failure unresponsive Patient continues to remain unresponsive blood cultures are positive for Klebsiella most likely of urinary tract origin urine culture is also positive Review of Systems is unable to be obtained Physical Examination - Vital Signs Temperature: 97.4 F Blood Pressure: 143/82 Pulse: 92 Respirations: 20 Pulse Ox (%): 100 - Physical Exam General: Comatose Respiratory: Clear to auscultation bilaterally Cardiovascular: Normal S1 S2, Edema Gastrointestinal: Normal bowel sounds, Soft and benign - Studies Microbiology Data (last 24 hrs): 05/06/18 10:15 Throat Culture & Sensitivity - Final Staph Aureus Medications List Reviewed: Yes Assessment & Plan - Problems (Diagnosis) (1) Respiratory failure Current Visit: Yes Status: Acute Plan: Patient is 52 years of age admitted with altered mental status respiratory failure sepsis blood cultures positive for Klebsiella most likely of urinary tract origin his kidney function is improving although is still very hypernatremic on D5 water insulin drip will start patient on tube feeds as been a decline in his hemoglobin Qualifiers: Chronicity: acute
[2018-05-10 10:01] LABS: Potassium 3.5 mmol/L (3.5-5.1)
[2018-05-10] MEDS ORDERED: JEVITY 1.5 CAL LIQUID 1,000 ML BOT FT SCH (11:00)
--- NOTE | 2018-05-10 11:16 | RAD REPORT ---
EXAM DESCRIPTION: US - Abdomen Exam Complete - 05/10/2018 11:09 am CLINICAL HISTORY: Abdominal pain, ascites COMPARISON: CT abdomen May 06 FINDINGS: Gallbladder is absent. Common bile duct is obscured. Very limited visualization of the lindsay er and spleen. No accurate assessment can't be made. The pancreas is obscured Very limited assessment of the kidneys. Hydronephrosis is not suspected. Aorta is obscured. The small amount of ascites is identifiable. This is a non drainable volume. IMPRESSION: Small amount of ascites. This is a non drainable volume. Remainder the examination is considered extremely limited and essentially nondiagnostic.
[2018-05-10 12:25] LABS: Hematocrit 21.8 % (39.6-49.0)
[2018-05-10] MEDS ORDERED: NA CHLORIDE 0.9% 250 ML IV SCH (15:00)
[2018-05-10 15:27] LABS: Potassium 3.5 mmol/L (3.5-5.1)
[2018-05-10] MEDS: ENOXAPARIN 30 MG/0.3 ML SQ SCH (16:38)
[2018-05-10] MEDS ORDERED: FUROSEMIDE 20 MG/ 2ML VIAL IV ONE (17:00)
[2018-05-10] MEDS ORDERED: POTASSIUM CL 40 MEQ in NA CHLORIDE 0.9% 500 ML IV SCH (19:00)
[2018-05-10 19:47] LABS: Hematocrit 23.5 % (39.6-49.0)
[2018-05-10 21:52] LABS: Albumin, (SPE) 2.6 g/dL (3.8-4.8); Alpha-1-Globulins 0.3 g/dL (0.2-0.3); Alpha-2-Globulins 0.5 g/dL (0.5-0.9); Gamma Globulins 1.3 g/dL (0.8-1.7); INTERPRETATION REPORT
[2018-05-10 23:40] LABS: Hematocrit 24.6 % (39.6-49.0)
--- NOTE | 2018-05-10 23:49 | PN ---
Subjective: The patient remains in ICU. He is critically. He has acute kidney injury, multifactorial, nonoliguric secondary to rhabdomyolysis with renal hypoperfusion causing prerenal azotemia as well as acute tubular necrosis with nonoliguric urine output. The patient primarily was found to have severe hyperglycemia and hyperammonemia. He is admitted to ICU for acute kidney injury and encephalopathy with respiratory failure. The patient was found to have severe hypernatremia and was treated with D5W, received free water flashes via the tube feeding. Review of Systems: Unobtainable, although the patient is somewhat alert today, and is moving extremities. Physical Examination: Lungs: Clear to attention bilaterally. Heart: S1, S2. Abdomen: Soft, benign. Extremities: Edema present in both legs. Blood Work: Hemoglobin 7.3 and hematocrit 23.5. Sodium 154, potassium 3.5, chloride 119, CO2 of 30, BUN 33, creatinine 1.0, glucose 203, calcium 7.1. Impression And Plan: 1. Hepatic encephalopathy with hyperammonemia. Lactulose was stopped. Ammonemia improved. The patient is undergoing treatment for severe hypernatremia. Sodium level is gradually improving. 2. Monitor potassium level and adjust potassium replacement. The patient will continue spironolactone. 3. Obesity, obstructive sleep apnea. Monitor oxygenation. Continue treatment per protocol. 4. Diabetes mellitus. Continue insulin treatment. 5. Fluid overload anasarca. The patient received spironolactone and Lasix. 6. Anemia. The patient received blood transfusion. Continue Lasix with transfusion. 7. Hypophosphatemia. Phosphorus level is stabilizing and the patient received replacement. i spent total 36 min including 26 min to coordinate care plan. LEIF/MARIANA Voice ID: [id number] Report ID: [id number] [facility]ORA[facility]
[2018-05-11] MEDS: VANCOMYCIN 2 GM in NA CHLORIDE 0.9% 500 ML IVPB SCH (00:13)
[2018-05-11] MEDS: LORazepam 2 MG/ML VIAL IV PRN (00:27)
[2018-05-11] MEDS: Meropenem 1,000 MG in NA CHLORIDE 0.9% 100 ML IV SCH ×2 (00:27→10:09)
[2018-05-11 02:06] LABS: HBsAG Nonreactive (Nonreactive); Hepatitis A IgM Antibody Nonreactive
[2018-05-11] MEDS: PANTOPRAZOLE INJ 80 MG in NA CHLORIDE 0.9% 250 ML IV SCH ×2 (05:00→12:12)
[2018-05-11 05:35] LABS: Absolute Lymphocytes (CBC) 2.4 K/uL (0.7-4.9); Absolute Monocytes 1.9 K/uL (0.1-1.3); Absolute Neutrophil 11.6 K/uL (1.8-8.0); Basophils % 0.2 % (0-1.3); Eosinophils % 1.8 % (0-4.4); Hematocrit 24.2 % (39.6-49.0); Lymphocytes % 14.6 % (15.3-44.8); MCH 30.8 pg (27.0-35.0); MCV 92.8 fL (80-100); MPV 10.5 fL (7.6-11.3); Monocytes % 11.7 % (3.3-12.3); RBC Red Blood Cell Count 2.61 M/uL (4.33-5.43)
[2018-05-11 05:46] LABS: Albumin 2.1 g/dL (3.4-5.0); Bilirubin Total 1.8 mg/dL (0.2-1.0); Magnesium 2.4 mg/dL (1.8-2.4); Phosphorus 1.5 mg/dL (2.5-4.9); Potassium 3.6 mmol/L (3.5-5.1); Protein, Total 5.6 g/dL (6.4-8.2)
[2018-05-11 06:49] LABS: Anisocytosis 1+; Blood Morphology Comment NOTED (NOT SEEN); Platelet Estimate DECR; Polychromasia 1+
--- NOTE | 2018-05-11 07:10 | EEG ---
CHART: [id number] TEST ID#: [id number] DATE OF STUDY: 05/08/2018 THE EEG WAS RECORDED PORTABLE IN THE ICU ON A 14 CHANNEL MACHINE. ELECTRODES WERE APPLIED IN THE USUAL MANNER USING THE INTERNATIONAL 10-20 SYSTEM. THE WAKING BACKGROUND RHYTHM IN THIS RECORD CONSISTS OF POORLY DEVELOPED AND POORLY ORGANIZED WAVES OF 6-7 HZ., IN A WIDE DISTRIBUTION WHICH ATTENUATE NORMALLY WITH EYE OPENING. MODERATE VOLTAGE 1.5-3 HZ RHYTHMIC ACTIVITY IS EXPRESSED INTERMITTENTLY IN THE FRONTAL REGIONS. THERE ARE NO FOCAL OR LATERALIZING FEATURES. NO EPILEPTIFORM ACTIVITY APPEARS. SLEEP DID NOT OCCUR. HYPERVENTILATION WAS NOT PERFORMED. PHOTIC STIMULATION PRODUCED WAS NOT PERFORMED. IMPRESSION: THIS IS A MODERATELY ABNORMAL EEG DUE TO A MODERATELY SLOW BACKGROUND. THIS IS A NON-SPECIFIC FINDING INDICATING THE PRESENCE OF A MODERATE DIFFUSE DISTURBANCE IN CEREBRAL FUNCTION. ETIOLOGY OF THE DYSFUNCTION INCLUDES HYPOXIC/ ISCHEMIC, METABOLIC OR TOXIC ABNORMALITIES.
[2018-05-11] MEDS: THIAMINE 200 MG/2 ML INJ IVP SCH (07:50)
[2018-05-11] MEDS: POTASS/SODIUM PHOSPHATE 1 PKT POWD.PACK FT SCH ×2 (07:52→20:24)
[2018-05-11] MEDS ORDERED: LORazepam 2 MG/ML VIAL IV PRN (08:29)
--- NOTE | 2018-05-11 08:34 | P.PN ---
Subjective Date of Service: 05/11/18 Primary Care Provider: Dr. Perez Chief Complaint: Respiratory failure unresponsive Subjective: Improving (Patient now alert and appropriate. Patient desires fluids.) Physical Examination - Vital Signs Temperature: 97.8 F Blood Pressure: 136/68 Pulse: 95 Respirations: 15 Pulse Ox (%): 95 - Physical Exam General: Alert, In no apparent distress, Oriented x2, Cooperative HEENT: Atraumatic Neck: Supple Respiratory: Clear to auscultation bilaterally, Normal air movement Cardiovascular: Normal pulses, Regular rate/rhythm Gastrointestinal: Normal bowel sounds, Soft and benign, Non-distended, No tenderness, No masses, No rebound, No guarding Musculoskeletal: No erythema, No tenderness, No warmth Integumentary: No erythema, No warmth, No cyanosis Neurological: Normal speech, Normal strength at 5/5 x4 extr, Normal tone, Normal affect - Studies Medications List Reviewed: Yes Assessment & Plan - Problems (Diagnosis) (1) Severe sepsis Onset Date: 05/07/18 Current Visit: Yes Status: Acute Plan: Patient has significantly improved. Patient now alert and appropriate. Will provide clear liquids. Patient with severe sepsis with noted multifactorial encephalopathy. Urine culture positive for Klebsiella. Blood culture positive for Klebsiella. Sputum culture positive for Staph aureus. Medications have been adjusted. Patient currently on meropenem and vancomycin for sepsis. Patient currently on Xifaxan and lactulose for his suspected hepatic encephalopathy. Ammonia level now within normal range. Liver function tests improved. Patient has received a total of 2 units of blood due to melena. Patient still on PPI IV drip. Case discussed with GI. GI will consider inpatient EGD. GI to evaluate patient today to determine this. What physical therapy assess ambulation. If the patient is significantly more stable physically then the patient can be transferred to the floor to start rehabilitation. Nephrology adjusting IV fluids for his hypernatremia. Patient still requires BiPAP at night due to his obstructive sleep apnea. Will consider moving the patient to the floor if stable. Will also consider changing insulin drip to basal insulin. Will also consider adjusting IV antibiotics to oral if GI does not plan on EGD as inpatient. I will turn the service over to Dr. Nunez tomorrow. I will go over the plan of care with her. (2) Toxic encephalopathy Onset Date: 05/07/18 Current Visit: Yes Status: Acute Plan: Blood and urine culture positive for Klebsiella. Patient on meropenem. Sputum shows Staph aureus. Currently on vancomycin. Will consider adjusting medication to oral once patient goes to the floor and the patient is able to take oral intake well. (3) Diabetes mellitus Onset Date: 05/07/18 Current Visit: Yes Status: Chronic Plan: Patient on insulin drip to maintain adequate control of diabetes. Will consider changing insulin drip to subcu insulin with basal insulin if the patient begins to eat more appropriately. Qualifiers: Diabetes mellitus type: type 2 Diabetes mellitus terminal worker insulin use: without terminal worker use Diabetes mellitus complication status: with other specified complication Qualified Code(s): E11.69 - Type 2 diabetes mellitus with other specified complication (4) Diabetic neuropathy Onset Date: 05/07/18 Current Visit: Yes Status: Chronic Plan: Will hold his pain medication at this time. Qualifiers: Diabetes mellitus type: type 2 Diabetes mellitus complication detail: diabetic polyneuropathy Qualified Code(s): E11.42 - Type 2 diabetes mellitus with diabetic polyneuropathy (5) Acute renal failure Onset Date: 05/07/18 Current Visit: Yes Status: Acute Plan: Likely from severe sepsis, volume depletion. This has improved. Nephrology continues to adjust IV fluids for his hypernatremia. This is resolving. (6) Elevated troponin Onset Date: 05/07/18 Current Visit: Yes Status: Acute Plan: Likely from severe sepsis. Cardiology consulted. No intervention needed at this time. Ejection fraction within normal range (7) Depression Onset Date: 05/07/18 Current Visit: Yes Status: Acute Plan: Will hold medication at this time. Will restart his medication once he is able to take good oral intake. Qualifiers: Depression Type: unspecified Qualified Code(s): F32.9 - Major depressive disorder, single episode, unspecified (8) Obstructive sleep apnea Onset Date: 05/07/18 Current Visit: Yes Status: Suspected Plan: Patient likely has sleep apnea. Patient is to requires BiPAP primarily at night. (9) Cirrhosis Onset Date: 05/07/18 Current Visit: Yes Status: Suspected Plan: Liver cirrhosis noted on CT scan. Patient now more appropriate. NG tube removed. Will begin with clear liquids. Patient continues with lactulose and Xifaxan. GI to decide on inpatient versus outpatient EGD. Patient has required 2 units of blood. Patient still with mild melena. Will continue to monitor hemoglobin. Qualifiers: Hepatic cirrhosis type: unspecified hepatic cirrhosis Ascites presence: without ascites Qualified Code(s): K74.60 - Unspecified cirrhosis of liver (10) Splenomegaly Onset Date: 05/07/18 Current Visit: Yes Status: Chronic Plan: Likely from cirrhosis. (11) Thrombocytopenia Onset Date: 05/07/18 Current Visit: Yes Status: Acute Plan: Likely from severe sepsis. This has remained stable and improved. Will continue to monitor. (12) Hypertension Onset Date: 05/07/18 Current Visit: Yes Status: Chronic Plan: Will continue to provide IV medication to maintain blood pressure. Will consider adjusting medication to oral once he is taking oral intake well. Qualifiers: Hypertension type: essential hypertension Qualified Code(s): I10 - Essential (primary) hypertension (13) Hypotension Onset Date: 05/07/18 Current Visit: Yes Status: Resolved Plan: Hypotension has resolved. Qualifiers: Hypotension type: other hypotension type Qualified Code(s): I95.89 - Other hypotension (14) Hepatic encephalopathy Current Visit: Yes Status: Acute Plan: This has resolved. Will continue with lactulose and Xifaxan. Ammonia and liver function tests improved. Will continue to monitor closely. (15) Melena Current Visit: Yes Status: Acute Plan: Will monitor hemoglobin closely. Patient on IV Protonix drip. Patient has received a total of 2 units of blood. Patient may require more blood if hemoglobin less than 7.0. GI to assess patient today to consider inpatient versus outpatient EGD. Patient has been started on clear liquids. (16) GERD (gastroesophageal reflux disease) Current Visit: Yes Status: Chronic Plan: Patient now on Protonix drip due to melena. GI to assess for possible inpatient versus outpatient EGD. (17) Hypernatremia Current Visit: Yes Status: Acute Plan: Nephrology continues to adjust IV fluids. (18) Elevated liver function tests Current Visit: Yes Status: Acute Plan: Likely from cirrhosis. Overall improved. Continue as above. (19) Morbid obesity Current Visit: Yes Status: Chronic Plan: Continue as above. (20) Bacteremia Current Visit: Yes Status: Acute Plan: Continue as above. Patient currently on meropenem and vancomycin. Will consider adjusting medication to oral once he is able take good oral intake. Discharge Plan: Home Plan to discharge in: 72 Hours Time Spent Managing Pts Care (In Minutes): 55
[2018-05-11] MEDS: Rifaximin 550 MG Tab PO SCH ×2 (09:00→20:25)
[2018-05-11] MEDS ORDERED: VANCOMYCIN 2.25 GM in NA CHLORIDE 0.9% 500 ML IVPB SCH (12:00)
[2018-05-11] MEDS: SPIRONOLACTONE 25 MG TABLET FT SCH (12:20)
[2018-05-11] MEDS ORDERED: LACTULOSE 20 GM/30 ML UCUP PO PRN (12:35)
[2018-05-11 13:20] LABS: Hematocrit 25.4 % (39.6-49.0)
[2018-05-11] MEDS: INSULIN -REGULAR HUMAN 100 UNIT in NA CHLORIDE 0.9% 100 ML IV SCH (14:35)
[2018-05-11] MEDS ORDERED: D50W 25 GM/50 ML SYRINGE IV PRN (14:43)
[2018-05-11] MEDS ORDERED: GLUCAGON 1 MG/VIAL IM PRN (14:43)
[2018-05-11] MEDS ORDERED: INSULIN -REGULAR HUMAN 50 UNIT/0.5 ML ML SQ SCH (16:30)
[2018-05-11] MEDS ORDERED: INSULIN DETEMIR 100 UNIT/1 ML INSULIN SQ SCH (17:00)
[2018-05-11] MEDS: ENOXAPARIN 30 MG/0.3 ML SQ SCH (17:01)
[2018-05-11] MEDS: INSULIN -REGULAR HUMAN 50 UNIT/0.5 ML ML SQ SCH ×2 (17:01→20:49)
[2018-05-11 19:32] LABS: Potassium 3.9 mmol/L (3.5-5.1)
[2018-05-11] MEDS: DOXYCYCLINE 100 MG in NA CHLORIDE 0.9% 100 ML IVPB SCH (20:25)
[2018-05-12] MEDS: PANTOPRAZOLE INJ 80 MG in NA CHLORIDE 0.9% 250 ML IV SCH ×3 (00:07→20:56)
--- NOTE | 2018-05-12 01:57 | PN ---
Date of Progress Note: 05/11/2018 Chief Complaint: Acute kidney injury, nonoliguric, associated with uncontrolled diabetes. Subjective: The patient was admitted to the hospital because of altered mental status. He remained in ICU. He developed acute kidney injury multifactorial secondary to rhabdomyolysis, renal hypoperfu namrata causing prerenal azotemia as well as nonoliguric acute tubular necrosis. Renal function has gra dually improved. The patient developed severe hypernatremia and was treated with hypotonic fluid stephanie e water with tube feedings. He received D5W. The patient remains on insulin drip. Hepatic encephalopathy gradually improving. Hypernatremia has improved over the last several days. Review of Systems: The patient is now alert although he is confused. Denies complaints. Physical Examination: Lungs: Clear to auscultation bilaterally. Heart: S1, S2. Abdomen: Soft, benign. Extremities: Edema in both legs. Laboratory Data: Hemoglobin 8.1, WBC is 16.1, platelet count is 113,000. Chemistries showed sodium 154, potassium 3.9, chloride 119, CO2 30, BUN is 25, creatinine 0.9, glucose 199, calcium 7.2. Impression And Plan: 1.Hypernatremia, gradually improving. Continue p.o. fluid intake. The patient removed NG tube and currently he is p.o. clear liquid. Continue current treatment with hydration. 2.Acute kidney injury, in recovery phase. Monitor fluid balance and electrolyte status. 3.Hypophosphatemia. The patient was treated with potassium phosphate replacement. Monitor electrol magdalene. EB/MODL Voice ID: [id number] Report ID: [id number]
[2018-05-12 05:39] LABS: Absolute Lymphocytes (CBC) 1.4 K/uL (0.7-4.9); Absolute Monocytes 0.9 K/uL (0.1-1.3); Absolute Neutrophil 6.3 K/uL (1.8-8.0); Basophils % 0.4 % (0-1.3); Eosinophils % 3.3 % (0-4.4); Hematocrit 22.7 % (39.6-49.0); Lymphocytes % 15.5 % (15.3-44.8); MCH 30.7 pg (27.0-35.0); MCV 93.5 fL (80-100); MPV 10.3 fL (7.6-11.3); Monocytes % 9.8 % (3.3-12.3); RBC Red Blood Cell Count 2.43 M/uL (4.33-5.43)
[2018-05-12 05:40] LABS: Magnesium 2.5 mg/dL (1.8-2.4); Phosphorus 1.8 mg/dL (2.5-4.9)
[2018-05-12 06:14] LABS: Blood Morphology Comment NOT SEEN (NOT SEEN); Platelet Estimate DECR; Platelets, Giant PRESENT; Urine White Blood Cell Casts OK
[2018-05-12] MEDS: INSULIN -REGULAR HUMAN 50 UNIT/0.5 ML ML SQ SCH ×4 (07:37→20:57)
[2018-05-12] MEDS ORDERED: NA CHLORIDE 0.9% 100 ML ONE (07:45)
[2018-05-12] MEDS: SPIRONOLACTONE 25 MG TABLET FT SCH (09:00)
[2018-05-12] MEDS: POTASS/SODIUM PHOSPHATE 1 PKT POWD.PACK FT SCH ×2 (09:24→20:56)
[2018-05-12] MEDS: Rifaximin 550 MG Tab PO SCH ×2 (09:25→20:56)
[2018-05-12] MEDS: THIAMINE 200 MG/2 ML INJ IVP SCH (09:25)
[2018-05-12] MEDS: DOXYCYCLINE 100 MG in NA CHLORIDE 0.9% 100 ML IVPB SCH ×2 (09:31→20:56)
[2018-05-12] MEDS ORDERED: POTASSIUM PHOS IV ONE (09:41)
[2018-05-12] MEDS ORDERED: NA CHLORIDE IV ONE (09:41)
[2018-05-12] MEDS: D5W 1,000 ML IV SCH (10:45)
[2018-05-12] MEDS ORDERED: CEFTRIAXONE/SWI 1gm 1 GM/10 ML SYR IV SCH (17:00)
--- NOTE | 2018-05-12 18:01 | P.PN ---
Date of Service: 05/12/18 Subjective: Patient seen and examined at bedside with RN. Chart reviewed. Case discussed with cardiology pulmonology and GI at this time. No complaints to offer overnight. Has been doing much better than before. Currently is alert and oriented x3. Objective: Vitals: Stable Physical Exam: General: Alert, In no apparent distress, Oriented x2, Cooperative HEENT: Atraumatic Neck: Supple Respiratory: Clear to auscultation bilaterally, Normal air movement Cardiovascular: Normal pulses, Regular rate/rhythm Gastrointestinal: Normal bowel sounds, Soft and benign, Non-distended, No tenderness, No masses, No rebound, No guarding Musculoskeletal: No erythema, No tenderness, No warmth Integumentary: No erythema, No warmth, No cyanosis Neurological: Normal speech, Normal strength at 5/5 x4 extr, Normal tone, Normal affect Assessment & Plan: (1) Severe sepsis -Urine culture positive for Klebsiella. Blood culture positive for Klebsiella. Sputum culture positive for Staph aureus. -On Doxycycline and rocephin at this time. (2) Bacteremia (3) UTI (4) Toxic encephalopathy -Most Likely 2.2 to Infection -On Abx -Now AAOX3 (5) Acute renal failure -Most Likely from severe sepsis, and volume depletion. -Nephrology continues to adjust IV fluids for his hypernatremia. -Improving overall (6) Liver Cirrhosis with hepatic Encephalopathy -Liver cirrhosis noted on CT scan. -continues with lactulose and Xifaxan. (7) Depression (8) Obstructive sleep apnea -BiPAP primarily at night. (9) Hypertension (10)Diabetes mellitus -ISS and basal Insulin (11) Melena -Patient on IV Protonix drip. Patient has received a total of 2 units of blood. -Patient may require more blood if hemoglobin less than 7.0. -GI to assess patient today to consider inpatient versus outpatient EGD. (12) Morbid obesity Current Visit: Yes Status: Chronic Plan: Continue as above. Dispo: Awaiting GI reccs for EGD at this time Discharge Plan: Home Plan to discharge in: 72 Hours Time Spent Managing Pts Care (In Minutes): 55
[2018-05-12] MEDS: ENOXAPARIN 30 MG/0.3 ML SQ SCH (18:05)
--- NOTE | 2018-05-12 20:05 | PN ---
For full details of consultation, please refer to Dr. Cantu's note from yesterday. The patient has re mained in the ICU. He is on BiPAP support. He is currently being treated for sepsis, and also his m entation appears to be slowly improving. He is morbidly obese. He did have a few units of blood tra nsfused, but there does not seem to be evidence of overt active bleeding. I discussed this case with Dr. Rubio. Due to his comorbid condition and acute symptoms, if the patient needs an endoscopy, i t would need to be done in the OR and the patient would need to be intubated; however, given that thi s is not an emergent condition, we can wait a few days for his general medical condition to be stabil ized and improved and then do the upper endoscopy. GI will continue to follow. /MARIANA Voice ID: [id number] Report ID: [id number]
--- NOTE | 2018-05-13 03:02 | PN ---
Date of Progress Note: 05/12/2018 Subjective: The patient is more awake today, more oriented. The patient was admitted with severe acute kidney injury, recovered, altered mental status secondary to hepatic encephalopathy. Physical Examination: Vital Signs: Blood pressure 113/55, pulse of 82. The patient had good urine output of 3500. Chest: Decreased entry bilateral base. Heart: S1, S2. Regular. Abdomen: Morbidly obese. Extremity: +1 edema. Venous stasis, bilateral. Laboratory Data: WBC 8.8, H and H 7.4/22.7, platelet 104, sodium 153, potassium 4, bicarb 31, BUN 25 , creatinine 9, calcium 7.1, phosphorus 1.8, magnesium 2.5. Current Medications: The patient is on include: 1.Lactulose. 2.Breathing treatment. 3.Doxycycline. 4.Ceftriaxone. 5.Xifaxan. 6.Lorazepam. 7.Breathing treatment. 8.K-Phos. Assessment And Plan: 1.Acute kidney injury secondary to rhabdomyolysis, recovered, resolved. 2.Rhabdomyolysis, resolved. 3.Altered mental status secondary to hepatic encephalopathy. Continue lactulose. 4.Hypernatremia, start the patient on D5, and we will continue to monitor. 5.Hypophosphatemia. Continue supplement. NITIN/MARIANA Voice ID: [id number] Report ID: [id number]
[2018-05-13 05:36] LABS: Magnesium 2.6 mg/dL (1.8-2.4); Phosphorus 2.2 mg/dL (2.5-4.9); Potassium 3.6 mmol/L (3.5-5.1)
[2018-05-13 05:42] LABS: Absolute Lymphocytes (CBC) 1.5 K/uL (0.7-4.9); Absolute Monocytes 0.8 K/uL (0.1-1.3); Absolute Neutrophil 7.6 K/uL (1.8-8.0); Basophils % 0.5 % (0-1.3); Eosinophils % 2.7 % (0-4.4); Hematocrit 24.7 % (39.6-49.0); Lymphocytes % 14.3 % (15.3-44.8); MCH 30.6 pg (27.0-35.0); MCV 93.7 fL (80-100); MPV 10.3 fL (7.6-11.3); Monocytes % 7.6 % (3.3-12.3); RBC Red Blood Cell Count 2.64 M/uL (4.33-5.43)
[2018-05-13] MEDS: D5W 1,000 ML IV SCH (05:56)
[2018-05-13] MEDS: PANTOPRAZOLE INJ 80 MG in NA CHLORIDE 0.9% 250 ML IV SCH (05:56)
[2018-05-13] MEDS ORDERED: POTASSIUM PHOS IN 0.9 % NACL 15 MMOL/250 ML BAG IV ONE (08:00)
[2018-05-13] MEDS: Rifaximin 550 MG Tab PO SCH ×2 (09:06→20:49)
[2018-05-13] MEDS: POTASS/SODIUM PHOSPHATE 1 PKT POWD.PACK FT SCH ×2 (09:08→20:49)
[2018-05-13] MEDS: INSULIN -REGULAR HUMAN 50 UNIT/0.5 ML ML SQ SCH ×4 (09:08→20:50)
[2018-05-13] MEDS: THIAMINE 200 MG/2 ML INJ IVP SCH (09:09)
[2018-05-13] MEDS: DOXYCYCLINE 100 MG in NA CHLORIDE 0.9% 100 ML IVPB SCH (10:54)
--- NOTE | 2018-05-13 13:01 | P.PN ---
Date of Service: 05/13/18 Subjective: Patient seen and examined at bedside with RN. Chart reviewed. Case discussed with cardiology pulmonology and GI at this time. No complaints to offer overnight. Has been doing much better than before. Currently is alert and oriented x3. referral Made out for LTAC placement. Objective: Vitals: Stable Physical Exam: General: Alert, In no apparent distress, Oriented x2, Cooperative HEENT: Atraumatic Neck: Supple Respiratory: Clear to auscultation bilaterally, Normal air movement Cardiovascular: Normal pulses, Regular rate/rhythm Gastrointestinal: Normal bowel sounds, Soft and benign, Non-distended, No tenderness, No masses, No rebound, No guarding Musculoskeletal: No erythema, No tenderness, No warmth Integumentary: No erythema, No warmth, No cyanosis Neurological: Normal speech, Normal strength at 5/5 x4 extr, Normal tone, Normal affect Assessment & Plan: (1) Severe sepsis -Urine culture positive for Klebsiella. Blood culture positive for Klebsiella. Sputum culture positive for Staph aureus. -On Doxycycline and rocephin at this time. -Improved now and resolved (2) Bacteremia (3) UTI (4) Toxic encephalopathy -Most Likely 2.2 to Infection -On Abx -Now AAOX3 (5) Acute renal failure -Most Likely from severe sepsis, and volume depletion. -Nephrology continues to adjust IV fluids for his hypernatremia. -Improving overall (6) Liver Cirrhosis with hepatic Encephalopathy -Liver cirrhosis noted on CT scan. -continues with lactulose and Xifaxan. (7) Depression (8) Obstructive sleep apnea -BiPAP primarily at night. (9) Hypertension (10)Diabetes mellitus -ISS and basal Insulin (11) Melena -Patient on IV Protonix drip. Patient has received a total of 2 units of blood. -Patient may require more blood if hemoglobin less than 7.0. -GI reccs hemodynamic stability for EGD as pt will requied intubation for the procedure (12) Morbid obesity Continue as above. Dispo: Awaiting EGD and LTAC placement Discharge Plan: Home Plan to discharge in: 72 Hours Time Spent Managing Pts Care (In Minutes): 55
[2018-05-13] MEDS ORDERED: FUROSEMIDE 20 MG/ 2ML VIAL IV ONE (13:32)
[2018-05-13] MEDS ORDERED: KCL 20 MEQ/100 mL IVPB 20 MEQ/100 ML BAG IV SCH (14:00)
[2018-05-13] MEDS: CEFTRIAXONE IVP SCH (17:46)
[2018-05-13] MEDS: D5W IVP SCH (17:46)
[2018-05-13] MEDS: PANTOPRAZOLE INJ 80 MG in D5W 250 ML IV SCH (17:47)
[2018-05-13] MEDS: ENOXAPARIN 30 MG/0.3 ML SQ SCH (17:47)
[2018-05-13] MEDS: DOXYCYCLINE IVPB SCH (20:49)
[2018-05-13] MEDS: D5W IVPB SCH (20:49)
[2018-05-14] MEDS: PANTOPRAZOLE INJ 80 MG in D5W 250 ML IV SCH ×3 (03:00→21:22)
--- NOTE | 2018-05-14 05:14 | PN ---
Date of Progress Note: 05/13/2018 Subjective: The patient more awake today. The patient is tolerating diuresis. Physical Examination: Vital Signs: Blood pressure 129/59, pulse of 77, afebrile. Chest: Decreased entry in bilateral base. Heart: S1, S2. Regular. Abdomen: Soft. Morbidly obese. Extremities: +1 edema. Laboratory Data: WBC 10.2, H and H 8.1/24.7, and platelets of 90. Sodium 148, potassium of 3.6, bic arb 31, BUN 18, creatinine 0.9, calcium 7.2, phosphorus 2.2, and magnesium of 2.6. Medications: Current medications the patient on its include: 1.Ceftriaxone. 2.Doxycycline. 3.Xifaxan. 4.Breathing treatment. 5.Lactulose. 6.Zofran. 7.D5 at 50. Assessment And Plan: 1.Acute kidney injury secondary to rhabdomyolysis, recovered, resolved. 2.Hypernatremia secondary to gastrointestinal loss, resolved. 3.Anasarca secondary to malnourished, proteinuria is minimal. I am going to start the patient on La six 20 daily and we will monitor. 4.Hypophosphatemia, hypokalemia. We will continue supplement. 5.Hepatic encephalopathy. Follow up with the primary. NITIN/MARIANA Voice ID: [id number] Report ID: [id number]
[2018-05-14 05:58] LABS: Phosphorus 2.8 mg/dL (2.5-4.9); Potassium 3.1 mmol/L (3.5-5.1)
[2018-05-14] MEDS ORDERED: POTASSIUM 25 MEQ EFFERV TAB PO ONE (06:36)
[2018-05-14 06:37] VITALS: BMI 56.3
[2018-05-14] MEDS: Rifaximin 550 MG Tab PO SCH (09:00)
[2018-05-14] MEDS: POTASS/SODIUM PHOSPHATE 1 PKT POWD.PACK FT SCH (09:00)
[2018-05-14] MEDS: THIAMINE 200 MG/2 ML INJ IVP SCH (09:25)
[2018-05-14] MEDS: INSULIN -REGULAR HUMAN 50 UNIT/0.5 ML ML SQ SCH ×3 (09:26→16:30)
[2018-05-14] MEDS: DOXYCYCLINE IVPB SCH (09:30)
[2018-05-14] MEDS: D5W IVPB SCH (09:30)
[2018-05-14] MEDS ORDERED: EPINEPHRINE/PF 1 MG/ML AMP ONE (12:25)
--- NOTE | 2018-05-14 12:52 | P.PN ---
Subjective: Patient seen and examined at bedside with RN. Chart reviewed. Case discussed with cardiology pulmonology and GI at this time. No complaints to offer overnight. Has been doing much better than before. Currently is alert and oriented x3.Scheduled for EGD today. Referral to [facility] Objective: Vitals: Stable Physical Exam: General: Alert, In no apparent distress, Oriented x2, Cooperative HEENT: Atraumatic Neck: Supple Respiratory: Clear to auscultation bilaterally, Normal air movement Cardiovascular: Normal pulses, Regular rate/rhythm Gastrointestinal: Normal bowel sounds, Soft and benign, Non-distended, No tenderness, No masses, No rebound, No guarding Musculoskeletal: No erythema, No tenderness, No warmth Integumentary: No erythema, No warmth, No cyanosis Neurological: Normal speech, Normal strength at 5/5 x4 extr, Normal tone, Normal affect Assessment & Plan: (1) Severe sepsis -Urine culture positive for Klebsiella. Blood culture positive for Klebsiella. Sputum culture positive for Staph aureus. -On Doxycycline and rocephin at this time. -Improved now and resolved (2) Bacteremia (3) UTI (4) Toxic encephalopathy -Most Likely 2.2 to Infection -On Abx -Now AAOX3 (5) Acute renal failure -Most Likely from severe sepsis, and volume depletion. -Nephrology continues to adjust IV fluids for his hypernatremia. -Improving overall (6) Liver Cirrhosis with hepatic Encephalopathy -Liver cirrhosis noted on CT scan. -continues with lactulose and Xifaxan. (7) Depression (8) Obstructive sleep apnea -BiPAP primarily at night. (9) Hypertension (10)Diabetes mellitus -ISS and basal Insulin (11) Melena -Patient on IV Protonix drip. Patient has received a total of 2 units of blood. -Patient may require more blood if hemoglobin less than 7.0. -GI reccs hemodynamic stability for EGD as pt will requied intubation for the procedure (12) Morbid obesity Continue as above. Dispo: Awaiting EGD and LTAC placement Discharge Plan: Home Plan to discharge in: 72 Hours Time Spent Managing Pts Care (In Minutes): 55
[2018-05-14] MEDS ORDERED: PROPOFOL 200 MG/20 ML VIAL IV ONE ×2 (13:40→15:00)
[2018-05-14] MEDS ORDERED: FENTANYL CITR 100 MCG/2 ML ONE (13:41)
[2018-05-14] MEDS ORDERED: LIDOCAINE 1% MPF 5 ML VIAL ONE (13:41)
[2018-05-14] MEDS ORDERED: ROCURONIUM 50 MG/5 ML VIAL IV ONE (13:42)
[2018-05-14] MEDS ORDERED: SUCCINYLCHOLINE 20 MG/ML (10 ML) IV ONE (14:34)
--- NOTE | 2018-05-14 14:38 | PN ---
Date of Progress Note: 05/14/2018 Chief Complaint: Acute kidney injury. History Of Present Illness: Acute kidney injury in recovery phase. The patient responded to IV flui ds. He did not require dialysis. The patient presented to the hospital with altered mental status, was found to have severe hyperammonemia and was started on lactulose. Subsequently, he required aggr essive hydration for hypernatremia due to gastrointestinal loss. Sodium level has stabilized. The p atient has history of anasarca and malnutrition. The patient currently is on TPN. Review of Systems: Denies fever or chills. Denies PND, orthopnea. Physical Examination: Lungs: Diminished breath sounds at bases. Heart: S1-S2. Abdomen: Soft. Benign. Extremities: Edema present in both legs, 2 to 3+. Laboratory Data: Sodium 135, potassium 3.1, chloride 110, CO2 of 31, BUN 12, creatinine 1.0, glucose 186, calcium 7.2, phosphorus 2.8. Impression And Plan: 1.Acute kidney injury in recovery phase. 2.Electrolyte abnormalities. 3.Hypokalemia. Continue replacement. 4.Check magnesium level. 5.Hypophosphatemia, treated. Phosphorus level improved. 6.Altered mental status, controlled with lactulose. Further workup with primary team. EB/MODL Voice ID: [id number] Report ID: [id number]
[2018-05-14] MEDS ORDERED: ONDANSETRON HCL 40 MG/20 ML VIAL ONE (15:00)
[2018-05-14] MEDS ORDERED: OCTREOTIDE 500 MCG in NA CHLORIDE 0.9% 500 ML IV SCH (16:38)
[2018-05-14] MEDS: ENOXAPARIN 30 MG/0.3 ML SQ SCH (17:00)
[2018-05-14] MEDS: CEFTRIAXONE IVP SCH (17:00)
[2018-05-14] MEDS: D5W IVP SCH (17:00)
[2018-05-14 17:24] VITALS: BP 140/62; TEMP 97.8
[2018-05-14 20:10] VITALS: O2SAT 95
--- NOTE | 2018-05-15 01:34 | OP ---
Surgeon: Daniel Jensen MD Procedure Performed: Esophagogastroduodenoscopy. Performing Physician: Daniel Jensen M.D. Indication For Procedure: Suspected upper GI bleed with history of melena. Plan For Anesthesia: General anesthesia as per the anesthesia team. Complexity: Very high due to patient being morbidly obese. Patient had to be taken to the OR and intubated for the procedure to protect his airway. Also being a high-risk procedure. Technique: After obtaining informed consent from the patient and explaining risks and complications which include, but are not limited to bleeding, infection, perforation, anesthesia complication, even cardiorespiratory arrest. The patient was placed in a supine position and then was intubated under general anesthesia subsequently. An upper endoscopy was performed. The scope was passed into the [facility] and carefully guided up to the second portion of the duodenum. There was no evidence of active b leeding that was identified. After the completion of examination, the scope and equipment were withd rawn and procedure terminated in a safe manner. Findings: Esophagus: No gross lesion in the proximal and mid esophagus, however in the distal esoph efe, there was evidence of grade 2-3 varices. The biopsies did not have any signs of recent bleed. However, the red signs were present signifying high risk for future bleed. After no other source was found in the remaining of the exam, decision was taken to band the varices. Two bands were strategi ajith placed in the distal esophagus eradicating the only varices that were seen. Stomach: There was evidence of vertical band gastroplasty, moderate patchy erythema seen in the body and antrum. Biopsies were taken. Duodenum: The bulb and second portion appeared normal. Complications: None. Tolerance To Anesthesia: Excellent. Postoperative Diagnoses: Esophageal varices, status post banding, gastritis, status post vertical ba nd gastroplasty. Plan: 1.Await pathology results. 2.For good return to the floor, the patient was extubated safely, oral PPI. Follow up in the GI cli nimesh. Will require repeat procedures in 1 to 2 months. However, it is going to be high risk and may have to be done in a hospital day setting. Oral PPI. US/MODL Voice ID: [id number] Report ID: [id number]
--- NOTE | 2018-05-15 16:33 | P.DS ---
Admission Date: 05/06/18 Discharge Date: 05/15/18 Primary Care Provider: Dr. Perez Disposition: [facility] Discharge Condition: GOOD Reason for Admission: Respiratory failure unresponsive Consultations: GI, Pulmonology, Cardiology Procedures: EGD Brief History of Present Illness: 52-year-old male presented to emergency room with altered mental status. Most information came from the family and ER physician. Over the last several days patient has been with increased fatigue. He has been sleeping a great deal of the time. Mother reports that the patient had fever, diarrhea. Patient with history of hypertension, diabetes, depression, and sleep apnea. His condition worsen with the increase agitation today. Patient was brought in to the emergency room. In the ER patient found to be hypotensive. He was also tachycardic. Initial blood pressure 91/58 with a heart rate 118. Patient was given IV fluids. Patient stabilize for further evaluation. CT head unremarkable for any acute changes. CT abdomen showed mild liver cirrhosis with splenomegaly. No acute findings noted. On lab white count 35.3. Percent neutrophils elevated at 82. Absolute neutrophils elevated, he had 5 bands. Lactic acid elevated at 11. Pro calcitonin elevated at 4.47. CPK 2059. CK MB 6.5 her, troponin 0.12. Urinalysis was positive for urinary tract infection. Urine drug screen negative. PH is 7.36 with a P O2 of 62. P CO2 of 31 and a bicarb 17. Patient has been stabilize. Chest x-ray unremarkable. When I saw the patient ER, he appeared agitated. Patient required Ativan for CT scan. Patient stable at this time. Blood pressures improved. Heart rate still tachycardic. Family reports patient takes multiple medications. Family reports that his kidney function had been normal on his last examination. Family reports that the patient had fever, diarrhea and not acting his normal mentation. Hospital Course: Discharge Diagnosis (1) Severe sepsis 2.2 to Bacterermia, UTI (2) Bacteremia (3) UTI (4) Toxic encephalopathy 2.2 to UTI (5) Acute renal failure on CKD stage 3 (6) Liver Cirrhosis with hepatic Encephalopathy (7) Depression (8) Obstructive sleep apnea (9) Hypertension, Essential (10)Diabetes mellitus type 2 (11) Melena causing Acute blood loss anemia 2.2 to Esophageal Varies (12) Morbid obesity Hospital Course Overall during the hospital course patient remained stable The patient was admitted to the hospital after he was found to have severe sepsis in the ER. Patient has urine culture which was positive eventually for Klebsiella blood culture which was positive for Klebsiella as well as sputum culture which was positive for Staph aureus. Initially upon admission patient was admitted started on IV vanc and Zosyn however the antibiotics were switched to more narrow spectrum after the sensitivities were is back. Patient was switched to doxycycline and Levaquin. Patient has severe sepsis does resolved. Patient did not require any pressors here in the hospital. Patient CR had no complication or here in the hospital as well. The patient was also found to have acute kidney injury most likely secondary to severe sepsis and volume depletion. Nephrology was consulted and CR place patient on IV fluids. Adjustments were made to IV fluids to ensure electrolyte balance and overall patient had improvement in his BUN and creatinine along with electrolytes as well. While here in the hospital patient was also found to have melena. GI was consulted who did a EGD on the patient and was found to have esophageal varices most likely secondary to liver cirrhosis. Patient was banded x2. Was switched to p.o. Protonix. No complications were noted throughout the stay due to melena as well. Patient was transfused 2 units while here in the hospital due to acute blood loss anemia secondary to melena secondary to variceal bleeds. Patient while here in the hospital was also found to have toxic encephalopathy most likely secondary to urinary tract infection. Once patient is urinary tract infection was treated appropriately patient became alert and oriented x3. The patient appeared to be stable an all his chronic conditions were managed appropriately here in the hospital. Patient was referred over to a long-term acute care facility for further management and was transferred over to [facility] for rehab and antibiotic therapy. Vital Signs/Physical Exam: Temp Pulse Resp BP Pulse Ox 97.8 F 84 20 140/62 92 05/14/18 16:00 05/14/18 16:00 05/14/18 16:00 05/14/18 16:05/14/18 16:00 General: Alert, In no apparent distress HEENT: Atraumatic, PERRLA, EOMI Neck: Supple, JVD not distended Respiratory: Clear to auscultation bilaterally, Normal air movement Cardiovascular: Regular rate/rhythm, Normal S1 S2 Gastrointestinal: Normal bowel sounds, No tenderness Musculoskeletal: No tenderness Integumentary: No rashes Neurological: Normal speech, Normal tone, Normal affect Lymphatics: No axilla or inguinal lymphadenopathy Laboratory Data at Discharge: WBC 10.2 K/uL (4.3-10.9) D 05/13/18 04:35 Hgb 8.1 g/dL (13.6-17.9) L 05/13/18 04:35 Hct 24.7 % (39.6-49.0) L 05/13/18 04:35 Plt Count 98 K/uL (152-406) L 05/13/18 04:35 Sodium 145 mmol/L (136-145) 05/14/18 04:45 Potassium 3.5 mmol/L (3.5-5.1) 05/14/18 13:00 BUN 12 mg/dL (7-18) 05/14/18 04:45 Creatinine 1.00 mg/dL (0.55-1.3) 05/14/18 04:45 Glucose 186 mg/dL (74-106) H 05/14/18 04:45 Phosphorus 2.8 mg/dL (2.5-4.9) 05/14/18 04:45 Magnesium 2.6 mg/dL (1.8-2.4) H 05/13/18 04:35 Total Bilirubin 1.8 mg/dL (0.2-1.0) H 05/11/18 05:00 AST 77 U/L (15-37) H 05/11/18 05:00 ALT 148 U/L (12-78) H 05/11/18 05:00 Alkaline Phosphatase 96 U/L (45-117) 05/11/18 05:00 Troponin I 0.09 ng/mL (0.0-0.045) H 05/07/18 01:48 Triglycerides 187 mg/dL (<150) H 05/07/18 04:30 Cholesterol 74 mg/dL (<200) 05/07/18 04:30 HDL Cholesterol 10 mg/dL (40-60) L 05/07/18 04:30 Cholesterol/HDL Ratio 7.40 05/07/18 04:30 Lipase 172 U/L (73-393) 05/06/18 09:00 Home Medications: Acetaminophen with Codeine [Acetaminophen-Cod #4 Tablet] 1 each PO Q6H PRN 05/06 Alogliptin Benzoate [Alogliptin] 1 tab PO DAILY 05/06/18 Cyclobenzaprine [Flexeril*] 1 tab PO TID 05/06/18 Empagliflozin [Jardiance] 10 mg PO DAILY 05/06/18 Furosemide [Lasix] 20 mg PO DAILY 05/06/18 Lisinopril/Hydrochlorothiazide [Lisinopril-Hctz 20-12.5 mg Tab] 2 each PO DAILY 05/06/18 Potassium Chloride 10 meq PO BID 05/06/18 Pregabalin [Lyrica] 50 mg PO BID 05/06/18 Vortioxetine Hydrobromide [Trintellix] 20 mg PO DAILY 05/06/18
== END 2018-05-14 21:26 | DRG 871 ==
LOC: ER 08:48 → ERHOLD 12:07 → 3RD-ICU 13:16 → 2ND 05-12 15:30
PROVIDERS: ADMIT Family Medicine; ATTEND Family Medicine
PROC: 5A09357 Assistance with Respiratory Ventilation, Less than 24 Consecutive Hours, Continuous Positive Airway Pressure (ICD-10-PCS; 2018-05-07)
PROC: 02HV33Z Insertion of Infusion Device into Superior Vena Cava, Percutaneous Approach (ICD-10-PCS; principal; 2018-05-08)
PROC: 30243N1 Transfusion of Nonautologous Red Blood Cells into Central Vein, Percutaneous Approach (ICD-10-PCS; 2018-05-09)
PROC: 06L38CZ Occlusion of Esophageal Vein with Extraluminal Device, Via Natural or Artificial Opening Endoscopic (ICD-10-PCS; 2018-05-14)
PROC: 0DB68ZX Excision of Stomach, Via Natural or Artificial Opening Endoscopic, Diagnostic (ICD-10-PCS; 2018-05-14)
PROC: 0DB78ZX Excision of Stomach, Pylorus, Via Natural or Artificial Opening Endoscopic, Diagnostic (ICD-10-PCS; 2018-05-14)
DX: A41.59 Other Gram-negative sepsis (principal); R65.21 Severe sepsis with septic shock; G92 Toxic encephalopathy; K72.91 Hepatic failure, unspecified with coma; J96.00 Acute respiratory failure, unspecified whether with hypoxia or hypercapnia; N39.0 Urinary tract infection, site not specified; N17.9 Acute kidney failure, unspecified; Z68.43 Body mass index [BMI] 50.0-59.9, adult; M62.82 Rhabdomyolysis; K92.1 Melena; E87.0 Hyperosmolality and hypernatremia; E87.2 Acidosis; I85.10 Secondary esophageal varices without bleeding; A41.9 Sepsis, unspecified organism; K74.60 Unspecified cirrhosis of liver; R65.20 Severe sepsis without septic shock; R16.1 Splenomegaly, not elsewhere classified; I10 Essential (primary) hypertension; E11.9 Type 2 diabetes mellitus without complications; F32.9 Major depressive disorder, single episode, unspecified; E66.01 Morbid (severe) obesity due to excess calories; E11.51 Type 2 diabetes mellitus with diabetic peripheral angiopathy without gangrene; E11.40 Type 2 diabetes mellitus with diabetic neuropathy, unspecified; E78.5 Hyperlipidemia, unspecified; G47.33 Obstructive sleep apnea (adult) (pediatric); I87.2 Venous insufficiency (chronic) (peripheral); R74.8 Abnormal levels of other serum enzymes; D69.6 Thrombocytopenia, unspecified; I95.89 Other hypotension; Z79.84 Long term (current) use of oral hypoglycemic drugs; Z88.6 Allergy status to analgesic agent; Z88.0 Allergy status to penicillin; Z98.84 Bariatric surgery status; N14.1 Nephropathy induced by other drugs, medicaments and biological substances; T38.3X5A Adverse effect of insulin and oral hypoglycemic [antidiabetic] drugs, initial encounter; T44.5X5A Adverse effect of predominantly beta-adrenoreceptor agonists, initial encounter; E83.39 Other disorders of phosphorus metabolism; D50.9 Iron deficiency anemia, unspecified; K21.9 Gastro-esophageal reflux disease without esophagitis; E11.65 Type 2 diabetes mellitus with hyperglycemia
CPT/HCPCS: 36415; 51702; 70450; 71045; 74018; 74176; 76700; 76705; 80048; 80053; 80061; 80069; 80074; 80076; 80202; 80307; 81003; 81015; 82010; 82140; 82274; 82550; 82553; 82570; 82728; 82746; 82805; 82947; 82962; 83036; 83540; 83605; 83690; 83735; 83970; 84100; 84132; 84145; 84156; 84165; 84439; 84443; 84466; 84484; 85014; 85018; 85025; 85044; 86850; 86900; 86901; 87040; 87070; 87077; 87081; 87086; 87088; 87186; 87205; 87389; 88305; 88312; 93005; 93306; 94660; 95816; 97163; 99285; C9113; J0171; J0330; J0696; J0744; J1650; J1940; J2354; J2405; J3010; J3370; J3411; J3486; J7030; J7060; P9016

== ENCOUNTER 2018-10-13 07:03 | Day surgery (SDC) | payer OTHER ==
--- OUTSIDE RECORDS SUMMARY | 2018-10-13 07:05 | XMS REPORT | Clinical Summary ---
:[address] [facility] Address [address] [place] [address] Care Team Providers Name Role Phone Unavailable Primary Care Provider Unavailable Allergies Active Allergy Reactions Severity Noted Date Comments Salicylates Low 07/13/2016 Per patient. Penicillins Other (See Comments) Medium 07/13/2016 Pt does not know. Was told so by his family. Medications Medication Sig Dispensed Refills Start Date End Date Status potassium chloride SA Take 20 mEq 0 Active (K-DUR,KLOR-CON) 20 MEQ by mouth tablet daily. sitaGLIPtin (JANUVIA) 50 Take 50 mg by 0 Active MG tablet mouth daily. furosemide (LASIX) 20 MG Take 20 mg by 0 Active tablet mouth 2 (two) times daily. hydroCHLOROthiazide Take 12.5 mg 0 Active (HYDRODIURIL) 12.5 MG by mouth tablet daily. gabapentin (NEURONTIN) Take 1 60 capsule 0 10/28/2017 Active 100 MG capsule capsule (100 9 mg total) by mouth 2 (two) times daily. levoFLOXacin (LEVAQUIN) Take 1 tablet 7 tablet 0 10/28/2017 500 MG tablet (500 mg 8 total) by mouth daily for 7 days. Active Problems Problem Noted Date Infected sebaceous cyst, posterior neck s/p I&D (10/25) 10/24/2017 Diabetes mellitus, type 2 10/24/2017 Essential hypertension 10/24/2017 Right arm pain 10/24/2017 Cellulitis, neck 10/23/2017 Morbid obesity 07/13/2016 Resolved Problems Problem Noted Date Resolved Date Acute gastric ulcer 07/15/2016 10/24/2017 Hematemesis 07/13/2016 10/24/2017 Melena 07/13/2016 10/24/2017 Anemia due to acute blood loss 07/13/2016 10/24/2017 Hypotension 07/13/2016 10/24/2017 Hypovolemia due to hemorrhage 07/13/2016 10/24/2017 Encounters Date Type Specialty Care Team Description 10/25/2017 Anesthesia Event Bharat Seals MD 10/25/2017 Surgery Oniel Dejesus DEBRIDEMENT/I&D,ALLEN Wei MD ND HEAD/NECK 10/23/2017 - Hospital Encounter General Internal AdSom lora Cellulitis , neck; 10/28/2017 Pablo Aldrich MD Type 2 diabetes mellitus with complication, without long-term current use of insulin (HCC); Jeet Liriano Essential hypertension; MD Po Morbid obesity ([facility]); Tiffany, Right arm pain; MD Chris Sebaceous cyst after 10/12/2017 Family History Medical History Relation Name Comments Arthritis Brother Alcohol abuse Father Arthritis Father Arthritis Mother Relation Name Status Comments Brother Father Mother Social History Tobacco Use Types Packs/Day Years Used Date Never Smoker Smokeless Tobacco: Never Used Tobacco Cessation: Counseling Given: No Sex Assigned at Date Recorded Not on file Job Start Date Occupation Industry Not on file Not on file Not on file Travel History Travel Start Travel End No recent travel history available. Last Filed Vital Signs Vital Sign Reading Time Taken Blood Pressure 137/74 10/28/2017 3:58 PM 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 Pulse 73 10/28/2017 3:58 PM 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 Temperature 35.8 C (96.4 F) 10/28/2017 3:58 PM 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 Respiratory Rate 18 10/28/2017 3:58 PM 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 Oxygen Saturation 94% 10/28/2017 3:58 PM 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 Inhaled Oxygen Concentration 21% 10/24/2017 7:55 AM 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 Weight 225.7 kg (497 lb 9.3 oz) 10/28/2017 4:32 AM 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 Height 203.2 cm (6' 8") 10/24/2017 1:46 AM 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 Body Mass Index 54.66 10/28/2017 4:32 AM 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 Plan of Treatment Not on file Procedures Procedure Name Priority Date/Time Associated Comments Diagnosis REPORT OF PROCEDURE - 10/30/2017 10:50 ENDOSCOPY SCAN AM 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 POCT-GLUCOSE METER Routine 10/28/2017 12:53 Results for this PM 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 procedure are in the results section. CBC W/PLT COUNT & Routine 10/28/2017 4:38 Results for this AUTO DIFFERENTIAL AM 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 procedure are in the results section. MAGNESIUM Routine 10/28/2017 4:38 Results for this AM 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 procedure are in the results section. CBC W/PLT COUNT & Routine 10/28/2017 4:38 Results for this AUTO DIFFERENTIAL AM 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 procedure are in the results section. PHOSPHORUS Routine 10/28/2017 4:38 Results for this AM 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 procedure are in the results section. CALCIUM, IONIZED Routine 10/28/2017 4:38 Results for this AM 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 procedure are in the results section. BASIC METABOLIC PANEL Routine 10/28/2017 4:38 Results for this (7) AM 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 procedure are in the results section. POCT-GLUCOSE METER Routine 10/27/2017 9:29 Results for this PM 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 procedure are in the results section. POCT-GLUCOSE METER Routine 10/27/2017 5:53 Results for this PM 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 procedure are in the results section. POCT-GLUCOSE METER Routine 10/27/2017 12:44 Results for this PM 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 procedure are in the results section. POCT-GLUCOSE METER Routine 10/27/2017 8:30 Results for this AM 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 procedure are in the results section. CBC W/PLT COUNT & Routine 10/27/2017 4:08 Results for this AUTO DIFFERENTIAL AM 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 procedure are in the results section. MAGNESIUM Routine 10/27/2017 4:08 Results for this AM 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 procedure are in the results section. CBC W/PLT COUNT & Routine 10/27/2017 4:08 Results for this AUTO DIFFERENTIAL AM 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 procedure are in the results section. PHOSPHORUS Routine 10/27/2017 4:08 Results for this AM 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 procedure are in the results section. CALCIUM, IONIZED Routine 10/27/2017 4:08 Results for this AM 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 procedure are in the results section. BASIC METABOLIC PANEL Routine 10/27/2017 4:08 Results for this (7) AM 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 procedure are in the results section. POCT-GLUCOSE METER Routine 10/26/2017 9:03 Results for this PM 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 procedure are in the results section. POCT-GLUCOSE METER Routine 10/26/2017 7:06 Results for this PM 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 procedure are in the results section. POCT-GLUCOSE METER Routine 10/26/2017 1:24 Results for this PM 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 procedure are in the results section. POCT-GLUCOSE METER Routine 10/26/2017 8:15 Results for this AM 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 procedure are in the results section. CBC W/PLT COUNT & Routine 10/26/2017 5:36 Results for this AUTO DIFFERENTIAL AM 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 procedure are in the results section. CBC W/PLT COUNT & Routine 10/26/2017 5:36 Results for this AUTO DIFFERENTIAL AM 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 procedure are in the results section. VANCOMYCIN LEVEL, Timed 10/26/2017 4:24 Results for this TROUGH AM 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 procedure are in the results section. MAGNESIUM Routine 10/26/2017 4:24 Results for this AM 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 procedure are in the results section. PHOSPHORUS Routine 10/26/2017 4:24 Results for this AM 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 procedure are in the results section. HEPATIC FUNCTION Routine 10/26/2017 4:24 Results for this PANEL AM 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 procedure are in the results section. BASIC METABOLIC PANEL Routine 10/26/2017 4:24 Results for this (7) AM 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 procedure are in the results section. POCT-GLUCOSE METER Routine 10/25/2017 8:04 Results for this PM 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 procedure are in the results section. POCT-GLUCOSE METER Routine 10/25/2017 4:29 Results for this PM 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 procedure are in the results section. POCT-GLUCOSE METER Routine 10/25/2017 12:36 Results for this PM 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 procedure are in the results section. TISSUE EXAM AP Routine 10/25/2017 11:45 Results for this AM 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 procedure are in the results section. SURGICALLY OBTAINED Routine 10/25/2017 11:40 Results for this CULTURE + GRAM STAIN AM 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 procedure are in the results section. ANAEROBIC CULTURE Routine 10/25/2017 11:40 Results for this AM 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 procedure are in the results section. AFB CULTURE + SMEAR Routine 10/25/2017 11:40 Results for this AM 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 procedure are in the results section. FUNGUS CULTURE + Routine 10/25/2017 11:40 Results for this SMEAR AM 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 procedure are in the results section. SPIN/CONCENTRATION Routine 10/25/2017 11:40 Results for this CHARGE AM 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 procedure are in the results section. DEBRIDEMENT/I&D,WOUND 10/25/2017 9:45 POSTERIOR NECK HEAD/NECK AM 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 ABSCESS Special Needs (REQ TF) CBC W/PLT COUNT & AUTO Routine 10/25/2017 4:31 AM 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 Results for this DIFFERENTIAL procedure are in the results section. T4, FREE Routine 10/25/2017 4:31 AM 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 T3, FREE Routine 10/25/2017 4:31 AM 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 CALCIUM, IONIZED Routine 10/25/2017 4:31 AM 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 CBC W/PLT COUNT & AUTO Routine 10/25/2017 4:31 AM 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 Results for this DIFFERENTIAL procedure are in the results section. MAGNESIUM Routine 10/25/2017 4:31 AM 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 PHOSPHORUS Routine 10/25/2017 4:31 AM 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 HEPATIC FUNCTION PANEL Routine 10/25/2017 4:31 AM 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 BASIC METABOLIC PANEL (7) Routine 10/25/2017 4:31 AM 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 POCT-GLUCOSE METER Routine 10/24/2017 8:59 PM 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 POCT-GLUCOSE METER Routine 10/24/2017 5:44 PM 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 U/S, NECK SUSAN 10/24/2017 4:26 PM 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 POCT-GLUCOSE METER Routine 10/24/2017 12:33 PM 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 CREATINE KINASE (CK), TOTAL Routine 10/24/2017 12:27 PM 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 Results for this AND MB procedure are in the results section. TROPONIN I Routine 10/24/2017 12:27 PM 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 XR CHEST 1 VIEW STAT 10/24/2017 12:09 PM 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 Results for this PORTABLE/BEDSIDE procedure are in the results section. CT BRAIN WITHOUT IV CONTRAST STAT 10/24/2017 11:29 AM 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 POCT-GLUCOSE METER Routine 10/24/2017 8:58 AM 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 CBC W/PLT COUNT & AUTO Routine 10/24/2017 4:02 AM 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 Results for this DIFFERENTIAL procedure are in the results section. T4, FREE Routine 10/24/2017 4:02 AM 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 CREATINE KINASE (CK), TOTAL Routine 10/24/2017 4:02 AM 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 Results for this AND MB procedure are in the results section. TROPONIN I Routine 10/24/2017 4:02 AM 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 BUN AND CREATININE SUSAN 10/24/2017 4:02 AM 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 SEDIMENTATION RATE Routine 10/24/2017 4:02 AM 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 TSH/FREE T4 IF INDICATED Routine 10/24/2017 4:02 AM 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 CBC W/PLT COUNT & AUTO Routine 10/24/2017 4:02 AM 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 Results for this DIFFERENTIAL procedure are in the results section. LIPID PANEL Routine 10/24/2017 4:02 AM 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 HEMOGLOBIN A1C Routine 10/24/2017 4:02 AM 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 MAGNESIUM Routine 10/24/2017 4:02 AM 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 PHOSPHORUS Routine 10/24/2017 4:02 AM 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 HEPATIC FUNCTION PANEL Routine 10/24/2017 4:02 AM 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 BASIC METABOLIC PANEL (7) Routine 10/24/2017 4:02 AM 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 BLOOD CULTURE Routine 10/23/2017 11:53 PM 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 BLOOD CULTURE Routine 10/23/2017 11:53 PM 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 C-REACTIVE PROTEIN Routine 10/23/2017 11:52 PM 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 CREATINE KINASE (CK), TOTAL Routine 10/23/2017 11:52 PM 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 Results for this AND MB procedure are in the results section. TROPONIN I Routine 10/23/2017 11:52 PM 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 ECG 12-LEAD Routine 10/23/2017 9:45 PM 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 after 10/12/2017 Results EKG-SCANNED (10/30/2017 10:50 AM 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) Narrative Performed At POC-Glucose meter (10/28/2017 12:53 PM 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)Only the most recent of16 resultswithin the time period is included. POC-Glucose Meter 127 (H)Comment: TESTED AT 70 - 110 mg/dL [facility] [id number] [facility] [id number] Specimen Blood Performing Organization Address City/State/Zipcode Phone Number [facility] [address] [place] [address] CENTER Calcium, Ionized (10/28/2017 4:38 AM 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)Only the most recent of3 resultswithin the time period is included. Calcium, Ion 0.93 (L) 1.12 - 1.27 mmol/L [facility] pH, Blood 7.36 [facility] Specimen Blood Performing Organization Address City/State/Zipcode Phone Number [facility] [address] [place] [address] [phone] [place] CBC with platelet count + automated diff (10/28/2017 4:38 AM 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)Only the most recent of5 resultswithin the time period is included. WBC 3.9 3.5 - 10.5 K/L [facility] RBC 4.12 (L) 4.63 - 6.08 M/L [facility] Hemoglobin 11.4 (L) 13.7 - 17.5 GM/DL [facility] Hematocrit 37.0 (L) 40.1 - 51.0 % [facility] MCV 89.8 79.0 - 92.2 fL [facility] MCH 27.7 25.7 - 32.2 pg [facility] MCHC 30.8 (L) 32.3 - 36.5 GM/DL [facility] RDW 15.8 (H) 11.6 - 14.4 % [facility] Platelets 92 (L) 150 - 450 K/CU MM [facility] MPV 11.6 9.4 - 12.4 fL [facility] nRBC 0 0 - 0 /100 WBC [facility] % Neutros 60 % [facility] % Lymphs 22 % [facility] % Monos 14 % [facility] % Eos 4 % [facility] % Baso 1 % [facility] # Neutros 2.29 1.78 - 5.38 K/L [facility] # Lymphs 0.83 (L) 1.32 - 3.57 K/L [facility] # Monos 0.54 0.30 - 0.82 K/L [facility] # Eos 0.15 0.04 - 0.54 K/L [facility] # Baso 0.02 0.01 - 0.08 K/L [facility] Immature Granulocytes-Relative 1 0 - 1 % [facility] Specimen Blood Performing Organization Address City/[facility] Phone Number [address] [address] [phone] CENTER Phosphorus (10/28/2017 4:38 AM 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)Only the most recent of5 resultswithin the time period is included. Phosphorus 3.2 2.3 - 4.7 mg/dL [facility] Specimen Blood Performing Organization Address City/[facility] Phone Number [address] [address] CENTER Magnesium (10/28/2017 4:38 AM 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)Only the most recent of5 resultswithin the time period is included. Magnesium 1.8 1.6 - 2.6 mg/dL [facility] Specimen Blood Performing Organization Address City/[facility] Phone Number [address] [address] CENTER Basic Metabolic Panel (10/28/2017 4:38 AM 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)Only the most recent of5 resultswithin the time period is included. Sodium 137 136 - 145 meq/L [facility] Potassium 3.6 3.5 - 5.1 meq/L [facility] Chloride 100 98 - 107 meq/L [facility] CO2 29 22 - 29 meq/L [facility] BUN 17 7 - 21 mg/dL [facility] Creatinine 1.03 0.57 - 1.25 mg/dL [facility] Glucose 125 (H) 70 - 105 mg/dL [facility] Calcium 9.2 8.4 - 10.2 mg/dL [facility] EGFR 76Comment: ESTIMATED GFR IS mL/min/1.73 sq m [facility] NOT ACCURATE CREATININE [facility] CENTER CLEARANCE IN PREDICTING GLOMERULAR FILTRATION RATE. ESTIMATED GFR IS NOT APPLICABLE FOR DIALYSIS PATIENTS. Specimen Blood Performing Organization Address City/[facility]/Zipcode Phone Number [address] [address] CENTER Vancomycin level, trough (10/26/2017 4:24 AM 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) Vancomycin Tr 20.0 10.0 - 20.0 ug/mL [facility] Specimen Blood - Arm, Right Narrative Performed At Please draw 30 minutes prior to vancomycin [facility] due time. Do not administer if vancomycin trough is >20 mcg/mL. Thank you! Performing Organization Address City/[facility] Phone Number [address] [address] CENTER Hepatic function panel (10/26/2017 4:24 AM 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)Only the most recent of3 resultswithin the time period is included. Protein, Total 6.8 6.0 - 8.3 gm/dL [facility] Albumin 3.0 (L) 3.5 - 5.0 g/dL [facility] Total Bilirubin 2.9 (H) 0.2 - 1.2 mg/dL [facility] Bilirubin, Direct 1.1 (H) 0.1 - 0.5 mg/dL [facility] Alkaline Phosphatase 63 40 - 150 U/L [facility] AST 33 5 - 34 U/L [facility] ALT 16 6 - 55 U/L [facility] Specimen Blood - Arm, Right Narrative Performed At [facility] Specimen slightly icteric Performing Organization Address City/State/[facility] Phone Number [facility] [address] [place], [place] [phone] CENTER Tissue Exam (10/25/2017 11:45 AM 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) Case Report Surgical Pathology Report Case: [id number] [facility] Authorizing Provider:Oniel Dejesus MDCollected: 10/25/[address] [place] [address] Ordering Location: [address] Received: 10/27/2017 0729 Service Pathologist: Sherin Lui MD Specimen:Soft Tissue, Other, Neck Cystic Wall DIAGNOSIS A. NECK, CYST WALL, EXCISION: [facility] - INFLAMED CYST WALL [facility] - NEGATIVE FOR MALIGNANCY Signing Pathologist Direct Phone Line: [phone] CPT Code(s) 32994 [facility] CLINICAL HISTORY Posterior neck abscess [facility] SPECIMEN SOURCE Neck cystic wall [facility] GROSS DESCRIPTION The specimen is received in a [facility] formalin-filled container [facility] labeled with the patient's information and labeled "neck cystic wall" and consists of an irregular fragment of membreno-whyte hemorrhagic tissue measuring 0.4 x 0.3 x 0.2 cm, submitted entirely in A1. CG/ew MICROSCOPIC DESCRIPTION Sections show cyst wall composed of Fibrocollagenous and neural tissue with acute and chronic inflammation. No cyst lining (or) keratin (or) giant cell reaction is identified. [facility] Specimen Tissue - Soft Tissue, Other Performing Organization Address City/State/Zipcode Phone Number [facility] [address] [address] CENTER AFB culture + smear (10/25/2017 11:40 AM 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) Result No acid-fast bacilli isolated in [facility] 42 days CENTER AFB Smear No acid fast bacilli seen [facility] Specimen Abscess - Neck Performing Organization Address City/[facility]/Zipcode Phone Number [address] [address] [place] Anaerobic culture (10/25/2017 11:40 AM 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) Result [facility] Result FINEGOLDIA MAGNA (A) [facility] Specimen Abscess - Neck Performing Organization Address City/[facility] Phone Number [address] [address] [phone] [place] Surgically obtained culture + gram stain (10/25/2017 11:40 AM 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) Result [facility] Result PROTEUS MIRABILIS (A) [facility] Gram Stain Result 4+ WBCs [facility] Gram Stain Result <1+ gram positive cocci in [facility] Specimen Abscess - Neck Narrative Performed At [facility] Organism Antibiotic Method Susceptibility Proteus mirabilis Amikacin [...] Proteus mirabilis Trimethoprim + Sulfamethoxazole <=20: Susceptible Performing Organization Address [facility] Phone Number [address] [phone] [place] Fungus culture + smear (10/25/2017 11:40 AM 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) Result No fungus isolated in 28 days [facility] Fungus Smear No fungi seen [facility] Specimen Abscess - Neck Performing Organization Address [facility] Phone Number [address] [address] [phone] [place] SPIN/CONCENTRATION CHARGE (10/25/2017 11:40 AM 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) Concentration charged Done [facility] Specimen Abscess - Neck Performing Organization Address [facility] Phone Number [address] [address] [place] T3, free (10/25/2017 4:31 AM 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) T3, Free 2.33 1.71 - 3.71 pg/mL [facility] Specimen Blood - Arm, Right Performing Organization Address [facility] Phone Number [address] [phone] [place] T4, free (10/25/2017 4:31 AM 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)Only the most recent of2 resultswithin the time period is included. Free T4 1.00 0.70 - 1.48 ng/dL [facility] Specimen Blood - Arm, Right Performing Organization Address [facility] Phone Number [address] [address] [phone] CENTER US neck (10/24/2017 4:26 PM 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) Narrative Performed At FINAL REPORT [facility] TECHNIQUE: Focused grayscale ultrasound of the posterior [...] MD Report Verified Date/Time:10/24/2017 17:36:55 Reading Location: [address] Ultrasound Reading Room Procedure Note Interface, External Ris In - 10/24/2017 5:39 PM 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 FINAL REPORT TECHNIQUE: Focused grayscale ultrasound of [...] Report Verified Date/Time: 10/24/2017 17:36:55 Reading Location: [address] Ultrasound Reading Room Performing Organization Address City/State/Zipcode Phone Number [facility] Troponin I (10/24/2017 12:27 PM 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)Only the most recent of3 resultswithin the time period is included. Troponin I <0.01 0.00 - 0.03 ng/mL [facility] Specimen Blood - Arm, Right Narrative Performed At [facility] Troponin I (TnI) levels must be interpreted [...] acidosis, acute neurological disease, and persistent tachyarrhythmia. Performing Organization Address City/State/Zipcode Phone Number [address] [address] [phone] [place] Creatine Kinase (CK), Total and MB (10/24/2017 12:27 PM 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)Only the most recent of3 resultswithin the time period is included. Total CK 122 29 - 200 U/L [facility] CK-MB 1.0 0.0 - 6.6 ng/mL [facility] MB Relative Index 0.8 % [facility] Specimen Blood - Arm, Right Narrative Performed At CK-MB Reference Range: [facility] <6.7Normal 6.7-10.0Borderline >10.0 Abnormal Performing Organization Address City/[facility] Phone Number [address] [address] [place] XR chest 1 view portable / bedside (10/24/2017 12:09 PM 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) Narrative Performed At FINAL REPORT [facility] TECHNIQUE: Frontal chest radiograph dated 10/24/2017. CLINICAL HISTORY: Right upper chest pain COMPARISON STUDY: Chest radiograph dated 07/16/2016 FINDINGS: Lungs are clear. No pleural effusion or pneumothorax. Cardiomediastinal silhouette is normal in size. No pulmonary edema. No bone or soft tissue abnormalities are seen. IMPRESSION: Clear lungs. Signed: Vinod Guzmán MD Report Verified Date/Time:10/24/2017 12:58:39 Reading Location: [facility] Radiology Reading Room Procedure Note Interface, External Ris In - 10/24/2017 1:00 PM 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 FINAL REPORT TECHNIQUE: Frontal chest radiograph dated 10/24/2017. CLINICAL HISTORY: Right upper chest pain COMPARISON STUDY: Chest radiograph dated 07/16/2016 FINDINGS: Lungs are clear. No pleural effusion or pneumothorax. Cardiomediastinal silhouette is normal in size. No pulmonary edema. No bone or soft tissue abnormalities are seen. IMPRESSION: Clear lungs. Signed: Vinod Guzmán MD Report Verified Date/Time: 10/24/2017 12:58:39 Reading Location: [facility] Radiology Reading Room Performing Organization Address City/State/Zipcode Phone Number order[facility] CT brain without IV contrast (10/24/2017 11:29 AM 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) Narrative Performed At FINAL REPORT order[facility] CT head without contrast INDICATION: Right arm [...] MD Report Verified Date/Time:10/24/2017 12:46:53 [facility] Rad[facility] Reading Room Procedure Note Interface, External Ris In - 10/24/2017 12:49 PM 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 FINAL REPORT CT head without contrast INDICATION: [...] Report Verified Date/Time: 10/24/2017 12:46:53 Reading Location: [facility] Radiology Reading Room Performing Organization Address City/State/Zipcode Phone Number [facility] TSH/Free T4 If Indicated (10/24/2017 4:02 AM 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) TSH 0.30 (L) 0.35 - 4.94 uIU/mL [facility] Specimen Blood Performing Organization Address City/[facility]/Zipcode Phone Number [address] [address] [phone] CENTER BUN and Creatinine (10/24/2017 4:02 AM 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) BUN 9 7 - 21 mg/dL [facility] Creatinine 0.64 0.57 - 1.25 mg/dL [facility] EGFR 132Comment: ESTIMATED GFR IS mL/min/1.73 sq m [facility] NOT ACCURATE CREATININE [facility] CENTER CLEARANCE IN PREDICTING GLOMERULAR FILTRATION RATE. ESTIMATED GFR IS NOT APPLICABLE FOR DIALYSIS PATIENTS. Specimen Blood Narrative Performed At [facility] Specimen slightly icteric Performing Organization Address City/[facility]/Zipcode Phone Number [address] [address] [phone] [place] Sedimentation rate (10/24/2017 4:02 AM 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) Sed Rate 59 (H) 0 - 20 mm/HR [facility] Specimen Blood Performing Organization Address City/[facility]/Zipcode Phone Number [address] [address] [phone] [place] Hemoglobin A1c (10/24/2017 4:02 AM 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) Hemoglobin A1C 9.0 (H) 4.3 - 6.1 % [facility] Specimen Blood Performing Organization Address [facility] Phone Number [address] [address] [phone] [place] Lipid panel (10/24/2017 4:02 AM 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) Triglycerides 83 mg/dL [facility] Cholesterol 129 mg/dL [facility] HDL 29 mg/dL [facility] LDL Calculated 83 mg/dL [facility] Specimen Blood Narrative Performed At [facility] Triglyceride Reference Range: Low Risk <150 [id number] High Risk 200-499 Very High Risk>=500 Cholesterol Reference Range: Low Risk <200 [id number] High Risk>240 HDL Cholesterol Reference Range: Low Risk >=60 High Risk <40 LDL Cholesterol Reference Range: Optimal<100 Near [id number] Very High >=190 Performing Organization Address [facility] Phone Number [address] [address] CENTER Blood culture (10/23/2017 11:53 PM 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)Only the most recent of2 resultswithin the time period is included. Result No growth in 5 days [facility] Specimen Blood - Arm, Right Performing Organization Address [facility] Phone Number [facility] [address] [place] [address] [phone] [place] C-Reactive Protein (10/23/2017 11:52 PM 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) CRP 3.09 (H) 0.00 - 0.50 mg/dL [facility] Specimen Blood - Arm, Right Performing Organization Address [facility] Phone Number [facility] [address] [place] [address] [place] ECG 12 lead (10/23/2017 9:45 PM 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) Narrative Performed At Ventricular Rate 83 BPM GE MUSE Atrial Rate 83 BPM P-R Interval 158 ms QRS Duration 92 ms Q-T Interval 366 ms QTC Calculation(Bazett) 430 ms P [place] 19 degrees R [place] 20 degrees T [place] 110 degrees Normal sinus rhythm T wave abnormality, consider lateral ischemia Abnormal ECG No previous ECGs available Confirmed by MD Zamudio Roberto ([id number]) on 10/24/2017 6:32:30 PM Procedure Note Interface, External Ris In - 10/24/2017 6:32 PM 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 Ventricular Rate 83 BPM Atrial Rate 83 BPM P-R Interval 158 ms QRS Duration 92 ms Q-T Interval 366 ms QTC Calculation(Bazett) 430 ms P [place] 19 degrees R [place] 20 degrees T [place] 110 degrees Normal sinus rhythm T wave abnormality, consider lateral ischemia Abnormal ECG No previous ECGs available Confirmed by MD Zamudio Roberto ([id number]) on 10/24/2017 6:32:30 PM Performing Organization Address [facility] Phone Number GE MUSE after 10/12/2017 Insurance Payer Benefit Plan / Group Subscriber ID Type Phone Address MEDICARE MEDICARE A B xxxxxxxxxxx Medicare MEDICAID MEDICAID [facility] xxxxxxxxx Medicaid Advance Directives For more information, please contact:[address] [phone] Code Status Date Activated Date Inactivated Comments Full Code 10/23/2017 9:35 PM 10/28/2017 9:20 PM This code status was determined by: Patient Full Code 07/13/2016 7:29 PM 07/17/2016 7:20 PM This code status was determined by: Patient
--- OUTSIDE RECORDS SUMMARY | 2018-10-13 07:06 | XMS REPORT ---
:1965 Author Organization [facility] Address [address] [place] [address] Dr. Jon [address] [place] [id number] Care Team Providers Name Role Phone WYATT [...] Value Reference Range Comments CULTURE (BEAKER) (test fplv=2130) No acid-fast bacilli isolated in 42 days AFB SMEAR (BEAKER) (test rbsl=781) No acid fast bacilli seen FUNGUS CULTURE + [id number] 11:30:00 Test Item Value Reference Range Comments CULTURE (BEAKER) (test No fungus isolated in 28 days bmwl=3718) FUNGUS SMEAR (BEAKER) (test No fungi seen vwzh=6985) ANAEROBIC [id number] 04:39:00 Test Item Value Reference Range Comments CULTURE (BEAKER) (test gltv=6900) 1+ Finegoldia magna SURGICALLY OBTAINED CULTURE + GRAM [id number] 10:26:00 Test Item Value Reference Range Comments CULTURE (BEAKER) (test wyke=6223) Amikacin (test code=1) Ampicillin + Sulbactam (test code=6) Aztreonam (test code=32) Cefepime (test code=51) Cefoxitin (test code=68) Ceftazidime (test code=27) Ceftriaxone (test code=52) Ertapenem (test code=38) Gentamicin (test code=18) Levofloxacin (test code=22) Meropenem (test code=34) Nitrofurantoin (test code=23) Piperacillin + Tazobactam (test code=29) Tetracycline (test code=2) Tobramycin (test code=25) Trimethoprim + Sulfamethoxazole (test code=47) CULTURE (BEAKER) (test 1+ Proteus mirabilis vdvm=3382) GRAM STAIN RESULT (BEAKER) 4+ WBCs (test ooqi=1490) GRAM STAIN RESULT (BEAKER) <1+ gram positive (test vpiw=544041) cocci in pairs BLOOD [id number] 05:02:00 Test Item Value Reference Range Comments CULTURE (BEAKER) (test knuw=9934) No growth in 5 days BLOOD [id number] 05:02:00 Test Item Value Reference Range Comments CULTURE (BEAKER) (test lhkx=1007) No growth in 5 days POCT-GLUCOSE [id number] 12:56:00 Test Item Value Reference Range Comments POC-GLUCOSE METER (BEAKER) 127 mg/dL 70-110 TESTED AT [facility] [address] (test nlpa=0189) [facility] [address] TISSUE [id number] 11:24:00Surgical Pathology Report Case: [id number] Authorizing Provider: Oniel Dejesus MD Collected: 10/25/2017 1145 Ordering Location: [address] Received: 10/27/2017 0729 Service Pathologist: Sherin Lui MD Specimen: Soft Tissue, Other, Neck Cystic Wall A. NECK, CYST WALL, EXCISION:- INFLAMED CYST WALL - NEGATIVE FOR MALIGNANCY Signing Pathologist Direct Phone Line: [phone] signed by Sherin Lui MD on at 11:24 [id number] neck abscessNeck cystic wallThe specimen is received [...] keratin (or) giant cell reaction is identified.CALCIUM, [id number] 06:20:00 Test Item Value Reference Range Comments CALCIUM IONIZED (BEAKER) (test njnr=150) 0.93 mmol/L 1.12-1.27 PH, BLOOD (BEAKER) (test zhpo=9891) 7.36 [id number] 05:23:00 Test Item Value Reference Range Comments PHOSPHORUS (BEAKER) (test crsi=589) 3.2 mg/dL 2.3-4.7 [id number] 05:23:00 Test Item Value Reference Range Comments MAGNESIUM (BEAKER) (test kwjt=383) 1.8 mg/dL 1.6-2.6 BASIC METABOLIC [id number] 05:23:00 Test Item Value Reference Range Comments SODIUM (BEAKER) (test 137 meq/L 136-145 rgsb=575) POTASSIUM (BEAKER) (test 3.6 meq/L 3.5-5.1 efuf=031) CHLORIDE (BEAKER) (test 100 meq/L 98-107 zadf=324) CO2 (BEAKER) (test 29 meq/L 22-29 atib=526) BLOOD UREA NITROGEN 17 mg/dL 7-21 (BEAKER) (test ntzp=378) CREATININE (BEAKER) (test 1.03 mg/dL 0.57-1.25 umrq=163) GLUCOSE RANDOM (BEAKER) 125 mg/dL 70-105 (test jelt=767) CALCIUM (BEAKER) (test 9.2 mg/dL 8.4-10.2 ocse=426) EGFR (BEAKER) (test 76 mL/min/1.73 sq m ESTIMATED GFR IS NOT pvyb=9382) ACCURATE CREATININE CLEARANCE IN PREDICTING GLOMERULAR FILTRATION RATE. ESTIMATED GFR IS NOT APPLICABLE FOR DIALYSIS PATIENTS. CBC W/PLT COUNT & AUTO [id number] 05:07:00 Test Item Value Reference Range Comments WHITE BLOOD CELL COUNT (BEAKER) (test effu=907) 3.9 K/ L 3.5-10.5 RED BLOOD CELL COUNT (BEAKER) (test wuxj=544) 4.12 M/ L 4.63-6.08 HEMOGLOBIN (BEAKER) (test mcpj=439) 11.4 GM/DL 13.7-17.5 HEMATOCRIT (BEAKER) (test gndb=143) 37.0 % 40.1-51.0 MEAN CORPUSCULAR VOLUME (BEAKER) (test zskm=042) 89.8 fL 79.0-92.2 MEAN CORPUSCULAR HEMOGLOBIN (BEAKER) (test 27.7 pg 25.7-32.2 iwsf=127) MEAN CORPUSCULAR HEMOGLOBIN CONC (BEAKER) (test 30.8 GM/DL 32.3-36.5 dnzm=375) RED CELL DISTRIBUTION WIDTH (BEAKER) (test 15.8 % 11.6-14.4 hcjs=797) PLATELET COUNT (BEAKER) (test ckcp=204) 92 K/CU MM 150-450 MEAN PLATELET VOLUME (BEAKER) (test tgoo=598) 11.6 fL 9.4-12.4 NUCLEATED RED BLOOD CELLS (BEAKER) (test 0 /100 WBC 0-0 voxo=976) NEUTROPHILS RELATIVE PERCENT (BEAKER) (test 60 % sfdt=170) LYMPHOCYTES RELATIVE PERCENT (BEAKER) (test 22 % geoy=672) MONOCYTES RELATIVE PERCENT (BEAKER) (test 14 % bzct=972) EOSINOPHILS RELATIVE PERCENT (BEAKER) (test 4 % mfbk=162) BASOPHILS RELATIVE PERCENT (BEAKER) (test 1 % yqqp=565) NEUTROPHILS ABSOLUTE COUNT (BEAKER) (test 2.29 K/ L 1.78-5.38 kyrj=183) LYMPHOCYTES ABSOLUTE COUNT (BEAKER) (test 0.83 K/ L 1.32-3.57 lbly=063) MONOCYTES ABSOLUTE COUNT (BEAKER) (test fase=143) 0.54 K/ L 0.30-0.82 EOSINOPHILS ABSOLUTE COUNT (BEAKER) (test 0.15 K/ L 0.04-0.54 tnge=996) BASOPHILS ABSOLUTE COUNT (BEAKER) (test arus=590) 0.02 K/ L 0.01-0.08 IMMATURE GRANULOCYTES-RELATIVE PERCENT (BEAKER) 1 % 0-1 (test gcus=1512) POCT-GLUCOSE [id number] 21:34:00 Test Item Value Reference Range Comments POC-GLUCOSE METER (BEAKER) 164 mg/dL 70-110 TESTED AT [address] (test oumx=4483) [facility] [address] POCT-GLUCOSE [id number] 17:56:00 Test Item Value Reference Range Comments POC-GLUCOSE METER (BEAKER) 119 mg/dL 70-110 TESTED AT [address] (test zdxv=8866) [facility] [address] SPIN/CONCENTRATION [id number] 14:02:00 Test Item Value Reference Range Comments CONCENTRATION CHARGED (BEAKER) (test ktbc=9446) Done POCT-GLUCOSE [id number] 12:51:00 Test Item Value Reference Range Comments POC-GLUCOSE METER (BEAKER) 133 mg/dL 70-110 TESTED AT [address] (test ekox=2388) [facility] [address] POCT-GLUCOSE [id number] 08:32:00 Test Item Value Reference Range Comments POC-GLUCOSE METER (BEAKER) 139 mg/dL 70-110 TESTED AT [address] (test cazd=2372) [facility] [address] CALCIUM, [id number] 06:56:00 Test Item Value Reference Range Comments CALCIUM IONIZED (BEAKER) (test jsrq=777) 0.82 mmol/L 1.12-1.27 PH, BLOOD (BEAKER) (test wxsm=9216) 7.34 [id number] 05:16:00 Test Item Value Reference Range Comments PHOSPHORUS (BEAKER) (test hjcg=420) 3.5 mg/dL 2.3-4.7 [id number] 05:16:00 Test Item Value Reference Range Comments MAGNESIUM (BEAKER) (test dtkh=622) 1.9 mg/dL 1.6-2.6 BASIC METABOLIC [id number] 05:16:00 Test Item Value Reference Range Comments SODIUM (BEAKER) (test 136 meq/L 136-145 qfil=277) POTASSIUM (BEAKER) (test 3.7 meq/L 3.5-5.1 egno=164) CHLORIDE (BEAKER) (test 100 meq/L 98-107 ouom=223) CO2 (BEAKER) (test 27 meq/L 22-29 memy=781) BLOOD UREA NITROGEN 17 mg/dL 7-21 (BEAKER) (test djvx=823) CREATININE (BEAKER) (test 1.16 mg/dL 0.57-1.25 oxhv=026) GLUCOSE RANDOM (BEAKER) 134 mg/dL 70-105 (test aket=415) CALCIUM (BEAKER) (test 9.0 mg/dL 8.4-10.2 qivp=142) EGFR (BEAKER) (test 67 mL/min/1.73 sq m ESTIMATED GFR IS NOT aikt=9073) ACCURATE CREATININE CLEARANCE IN PREDICTING GLOMERULAR FILTRATION RATE. ESTIMATED GFR IS NOT APPLICABLE FOR DIALYSIS PATIENTS. Specimen slightly ictericCBC W/PLT COUNT & AUTO [id number] 04:50 :00 Test Item Value Reference Range Comments WHITE BLOOD CELL COUNT (BEAKER) (test hguw=848) 4.7 K/ L 3.5-10.5 RED BLOOD CELL COUNT (BEAKER) (test nzxt=836) 4.18 M/ L 4.63-6.08 HEMOGLOBIN (BEAKER) (test mgmi=351) 11.6 GM/DL 13.7-17.5 HEMATOCRIT (BEAKER) (test worz=391) 37.8 % 40.1-51.0 MEAN CORPUSCULAR VOLUME (BEAKER) (test bjpe=913) 90.4 fL 79.0-92.2 MEAN CORPUSCULAR HEMOGLOBIN (BEAKER) (test 27.8 pg 25.7-32.2 shhb=200) MEAN CORPUSCULAR HEMOGLOBIN CONC (BEAKER) (test 30.7 GM/DL 32.3-36.5 npox=497) RED CELL DISTRIBUTION WIDTH (BEAKER) (test 15.8 % 11.6-14.4 jzpa=003) PLATELET COUNT (BEAKER) (test hyrh=359) 88 K/CU MM 150-450 MEAN PLATELET VOLUME (BEAKER) (test gmbb=910) 12.1 fL 9.4-12.4 NUCLEATED RED BLOOD CELLS (BEAKER) (test 0 /100 WBC 0-0 mual=931) NEUTROPHILS RELATIVE PERCENT (BEAKER) (test 59 % fwtw=758) LYMPHOCYTES RELATIVE PERCENT (BEAKER) (test 21 % wcfh=830) MONOCYTES RELATIVE PERCENT (BEAKER) (test 15 % uarb=884) EOSINOPHILS RELATIVE PERCENT (BEAKER) (test 4 % zncx=890) BASOPHILS RELATIVE PERCENT (BEAKER) (test 0 % nrue=241) NEUTROPHILS ABSOLUTE COUNT (BEAKER) (test 2.79 K/ L 1.78-5.38 gbxc=647) LYMPHOCYTES ABSOLUTE COUNT (BEAKER) (test 0.98 K/ L 1.32-3.57 mlfo=131) MONOCYTES ABSOLUTE COUNT (BEAKER) (test tqoo=757) 0.73 K/ L 0.30-0.82 EOSINOPHILS ABSOLUTE COUNT (BEAKER) (test 0.19 K/ L 0.04-0.54 dkll=568) BASOPHILS ABSOLUTE COUNT (BEAKER) (test rcph=075) 0.02 K/ L 0.01-0.08 IMMATURE GRANULOCYTES-RELATIVE PERCENT (BEAKER) 0 % 0-1 (test vffl=9599) POCT-GLUCOSE [id number] 21:14:00 Test Item Value Reference Range Comments POC-GLUCOSE METER (BEAKER) 169 mg/dL 70-110 TESTED AT [address] (test llww=0636) [facility] [address] POCT-GLUCOSE [id number] 19:08:00 Test Item Value Reference Range Comments POC-GLUCOSE METER (BEAKER) 146 mg/dL 70-110 TESTED AT [address] (test cmkc=4666) [facility] [address] POCT-GLUCOSE [id number] 13:25:00 Test Item Value Reference Range Comments POC-GLUCOSE METER (BEAKER) 141 mg/dL 70-110 TESTED AT [address] (test wkud=6902) [place] [id number] POCT-GLUCOSE [id number] 08:18:00 Test Item Value Reference Range Comments POC-GLUCOSE METER (BEAKER) 133 mg/dL 70-110 TESTED AT [address] (test stpf=9874) [facility] [address] CBC W/PLT COUNT & AUTO [id number] 06:08:00 Test Item Value Reference Range Comments WHITE BLOOD CELL COUNT (BEAKER) (test itnh=556) 4.9 K/ L 3.5-10.5 RED BLOOD CELL COUNT (BEAKER) (test ylcq=837) 3.92 M/ L 4.63-6.08 HEMOGLOBIN (BEAKER) (test qpve=545) 11.0 GM/DL 13.7-17.5 HEMATOCRIT (BEAKER) (test joyl=193) 35.2 % 40.1-51.0 MEAN CORPUSCULAR VOLUME (BEAKER) (test ewmg=095) 89.8 fL 79.0-92.2 MEAN CORPUSCULAR HEMOGLOBIN (BEAKER) (test 28.1 pg 25.7-32.2 tvaf=310) MEAN CORPUSCULAR HEMOGLOBIN CONC (BEAKER) (test 31.3 GM/DL 32.3-36.5 azgm=213) RED CELL DISTRIBUTION WIDTH (BEAKER) (test 16.0 % 11.6-14.4 txyl=368) PLATELET COUNT (BEAKER) (test htps=107) 80 K/CU MM 150-450 MEAN PLATELET VOLUME (BEAKER) (test dezi=806) 11.4 fL 9.4-12.4 NUCLEATED RED BLOOD CELLS (BEAKER) (test 0 /100 WBC 0-0 qorl=699) NEUTROPHILS RELATIVE PERCENT (BEAKER) (test 62 % hojr=232) LYMPHOCYTES RELATIVE PERCENT (BEAKER) (test 19 % dxpo=855) MONOCYTES RELATIVE PERCENT (BEAKER) (test 15 % rfzd=731) EOSINOPHILS RELATIVE PERCENT (BEAKER) (test 3 % otsj=383) BASOPHILS RELATIVE PERCENT (BEAKER) (test 0 % jlky=465) NEUTROPHILS ABSOLUTE COUNT (BEAKER) (test 3.03 K/ L 1.78-5.38 eiaj=793) LYMPHOCYTES ABSOLUTE COUNT (BEAKER) (test 0.92 K/ L 1.32-3.57 xzka=660) MONOCYTES ABSOLUTE COUNT (BEAKER) (test xgeu=286) 0.74 K/ L 0.30-0.82 EOSINOPHILS ABSOLUTE COUNT (BEAKER) (test 0.16 K/ L 0.04-0.54 gyxr=551) BASOPHILS ABSOLUTE COUNT (BEAKER) (test tfau=574) 0.01 K/ L 0.01-0.08 IMMATURE GRANULOCYTES-RELATIVE PERCENT (BEAKER) 1 % 0-1 (test mjeb=8438) [id number] 05:13:00 Test Item Value Reference Range Comments PHOSPHORUS (BEAKER) (test wujn=019) 3.4 mg/dL 2.3-4.7 [id number] 05:13:00 Test Item Value Reference Range Comments MAGNESIUM (BEAKER) (test bzko=337) 1.9 mg/dL 1.6-2.6 BASIC METABOLIC [id number] 05:13:00 Test Item Value Reference Range Comments SODIUM (BEAKER) (test 136 meq/L 136-145 qwjl=857) POTASSIUM (BEAKER) (test 3.6 meq/L 3.5-5.1 ylkd=571) CHLORIDE (BEAKER) (test 102 meq/L 98-107 vmyz=228) CO2 (BEAKER) (test 26 meq/L 22-29 coaa=016) BLOOD UREA NITROGEN 15 mg/dL 7-21 (BEAKER) (test cpwr=253) CREATININE (BEAKER) (test 1.07 mg/dL 0.57-1.25 zljx=700) GLUCOSE RANDOM (BEAKER) 134 mg/dL 70-105 (test qlwd=820) CALCIUM (BEAKER) (test 8.5 mg/dL 8.4-10.2 qxew=697) EGFR (BEAKER) (test 73 mL/min/1.73 sq m ESTIMATED GFR IS NOT nycx=5892) ACCURATE CREATININE CLEARANCE IN PREDICTING GLOMERULAR FILTRATION RATE. ESTIMATED GFR IS NOT APPLICABLE FOR DIALYSIS PATIENTS. Specimen slightly ictericHEPATIC FUNCTION [id number] 05:13:00 Test Item Value Reference Range Comments TOTAL PROTEIN (BEAKER) (test jrts=600) 6.8 gm/dL 6.0-8.3 ALBUMIN (BEAKER) (test npus=2044) 3.0 g/dL 3.5-5.0 BILIRUBIN TOTAL (BEAKER) (test qcll=257) 2.9 mg/dL 0.2-1.2 BILIRUBIN DIRECT (BEAKER) (test wejx=977) 1.1 mg/dL 0.1-0.5 ALKALINE PHOSPHATASE (BEAKER) (test nvxv=606) 63 U/L 40-150 AST (SGOT) (BEAKER) (test gnoo=228) 33 U/L 5-34 ALT (SGPT) (BEAKER) (test xcxz=271) 16 U/L 6-55 Specimen slightly ictericVANCOMYCIN LEVEL, [id number] 05:05:00 Test Item Value Reference Range Comments VANCOMYCIN TROUGH (BEAKER) (test rjyo=150) 20.0 ug/mL 10.0-20.0 Please draw 30 minutes prior to vancomycin due time. Do not administer if vancomycin trough is >20 mcg/mL. Thank you!POCT-GLUCOSE [id number] 20:11 :00 Test Item Value Reference Range Comments POC-GLUCOSE METER (BEAKER) 153 mg/dL 70-110 TESTED AT [facility] [address] [facility] (test yxuv=4803) [facility] [address] POCT-GLUCOSE [id number] 16:31:00 Test Item Value Reference Range Comments POC-GLUCOSE METER (BEAKER) 168 mg/dL 70-110 TESTED AT [address] (test qghg=8820) [facility] [address] POCT-GLUCOSE [id number] 12:39:00 Test Item Value Reference Range Comments POC-GLUCOSE METER (BEAKER) 161 mg/dL 70-110 TESTED AT [facility] [address] [facility] (test ljpb=4622) [facility] [address] T4, [id number] 09:05:00 Test Item Value Reference Range Comments FREE T4 (BEAKER) (test qfww=375) 1.00 ng/dL 0.70-1.48 T3, [id number] 09:05:00 Test Item Value Reference Range Comments T3 FREE (BEAKER) (test rxxf=547) 2.33 pg/mL 1.71-3.71 CALCIUM, [id number] 07:37:00 Test Item Value Reference Range Comments CALCIUM IONIZED (BEAKER) (test oank=340) 0.97 mmol/L 1.12-1.27 PH, BLOOD (BEAKER) (test krci=2876) 7.38 [id number] 06:53:00 Test Item Value Reference Range Comments PHOSPHORUS (BEAKER) (test rhmp=580) 2.8 mg/dL 2.3-4.7 [id number] 06:53:00 Test Item Value Reference Range Comments MAGNESIUM (BEAKER) (test urzw=662) 1.6 mg/dL 1.6-2.6 BASIC METABOLIC [id number] 06:53:00 Test Item Value Reference Range Comments SODIUM (BEAKER) (test 133 meq/L 136-145 wcuu=498) POTASSIUM (BEAKER) (test 3.9 meq/L 3.5-5.1 cyin=841) CHLORIDE (BEAKER) (test 101 meq/L 98-107 zuam=867) CO2 (BEAKER) (test 25 meq/L 22-29 xfov=910) BLOOD UREA NITROGEN 6 mg/dL 7-21 (BEAKER) (test xwbx=554) CREATININE (BEAKER) (test 0.65 mg/dL 0.57-1.25 wfqr=177) GLUCOSE RANDOM (BEAKER) 148 mg/dL 70-105 (test wkxp=210) CALCIUM (BEAKER) (test 8.3 mg/dL 8.4-10.2 rinv=047) EGFR (BEAKER) (test 130 mL/min/1.73 sq m ESTIMATED GFR IS NOT ifjp=7796) ACCURATE CREATININE CLEARANCE IN PREDICTING GLOMERULAR FILTRATION RATE. ESTIMATED GFR IS NOT APPLICABLE FOR DIALYSIS PATIENTS. Specimen slightly ictericHEPATIC FUNCTION [id number] 06:53:00 Test Item Value Reference Range Comments TOTAL PROTEIN (BEAKER) (test ebtd=029) 7.1 gm/dL 6.0-8.3 ALBUMIN (BEAKER) (test toiw=7224) 3.2 g/dL 3.5-5.0 BILIRUBIN TOTAL (BEAKER) (test newn=599) 3.2 mg/dL 0.2-1.2 BILIRUBIN DIRECT (BEAKER) (test hkzv=862) 0.9 mg/dL 0.1-0.5 ALKALINE PHOSPHATASE (BEAKER) (test svyc=297) 66 U/L 40-150 AST (SGOT) (BEAKER) (test mzau=386) 27 U/L 5-34 ALT (SGPT) (BEAKER) (test blwv=527) 18 U/L 6-55 Specimen slightly ictericCBC W/PLT COUNT & AUTO [id number] 05:17 :00 Test Item Value Reference Range Comments WHITE BLOOD CELL COUNT (BEAKER) (test zyca=611) 5.6 K/ L 3.5-10.5 RED BLOOD CELL COUNT (BEAKER) (test exrh=868) 4.19 M/ L 4.63-6.08 HEMOGLOBIN (BEAKER) (test symg=862) 11.7 GM/DL 13.7-17.5 HEMATOCRIT (BEAKER) (test baqa=786) 37.6 % 40.1-51.0 MEAN CORPUSCULAR VOLUME (BEAKER) (test hjat=005) 89.7 fL 79.0-92.2 MEAN CORPUSCULAR HEMOGLOBIN (BEAKER) (test 27.9 pg 25.7-32.2 argt=517) MEAN CORPUSCULAR HEMOGLOBIN CONC (BEAKER) (test 31.1 GM/DL 32.3-36.5 lgca=094) RED CELL DISTRIBUTION WIDTH (BEAKER) (test 15.9 % 11.6-14.4 frvy=697) PLATELET COUNT (BEAKER) (test cmnr=330) 83 K/CU MM 150-450 MEAN PLATELET VOLUME (BEAKER) (test wgij=991) 12.1 fL 9.4-12.4 NUCLEATED RED BLOOD CELLS (BEAKER) (test 0 /100 WBC 0-0 phef=667) NEUTROPHILS RELATIVE PERCENT (BEAKER) (test 69 % ltgh=026) LYMPHOCYTES RELATIVE PERCENT (BEAKER) (test 16 % renh=439) MONOCYTES RELATIVE PERCENT (BEAKER) (test 12 % wkiq=939) EOSINOPHILS RELATIVE PERCENT (BEAKER) (test 2 % caue=001) BASOPHILS RELATIVE PERCENT (BEAKER) (test 0 % ppls=823) NEUTROPHILS ABSOLUTE COUNT (BEAKER) (test 3.86 K/ L 1.78-5.38 hpsf=223) LYMPHOCYTES ABSOLUTE COUNT (BEAKER) (test 0.91 K/ L 1.32-3.57 dixh=161) MONOCYTES ABSOLUTE COUNT (BEAKER) (test oket=310) 0.64 K/ L 0.30-0.82 EOSINOPHILS ABSOLUTE COUNT (BEAKER) (test 0.11 K/ L 0.04-0.54 sies=333) BASOPHILS ABSOLUTE COUNT (BEAKER) (test fhey=265) 0.02 K/ L 0.01-0.08 IMMATURE GRANULOCYTES-RELATIVE PERCENT (BEAKER) 1 % 0-1 (test xjzc=5618) POCT-GLUCOSE [id number] 21:13:00 Test Item Value Reference Range Comments POC-GLUCOSE METER (BEAKER) 157 mg/dL 70-110 TESTED AT [address] (test lckd=4923) [place] [address] POCT-GLUCOSE [id number] 18:28:00 Test Item Value Reference Range Comments POC-GLUCOSE METER (BEAKER) 159 mg/dL 70-110 TESTED AT [address] (test nzfa=7232) [place] [address] U/S, [id number] 17:36:00Reason for exam:->posterior and right lateral neck, [...] MDReport Verified Date/Time: 10/24/2017 17:36:55 Reading Location: [address] Ultrasound Reading Room CREATINE KINASE (CK), TOTAL AND [id number] 13:13:00 Test Item Value Reference Range Comments CREATINE KINASE TOTAL (BEAKER) (test thtn=324) 122 U/L 29-200 CREATINE KINASE-MB (BEAKER) (test ondz=266) 1.0 ng/mL 0.0-6.6 CREATINE KINASE-MB INDEX (BEAKER) (test royd=697) 0.8 % CK-MB Reference Range:<6.7 Normal6.7-10.0 Borderline>10.0 AbnormalTROPONIN [id number] 13:13:00 Test Item Value Reference Range Comments TROPONIN I (BEAKER) (test fvyg=872) < ng/mL 0.00-0.03 Troponin I (TnI) levels [...] acidosis, acute neurological disease, and persistent tachyarrhythmia.HEMOGLOBIN [id number] 13:09:00 Test Item Value Reference Range Comments HEMOGLOBIN A1C (BEAKER) (test foej=775) 9.0 % 4.3-6.1 RAD, CHEST, 1 VIEW, NON [id number] 12:58:00Reason for exam:->Right upper chest painShould this [...] MDReport Verified Date/Time: 10/24/2017 12:58:39 Reading Location: [facility] Radiology Reading Room CT, BRAIN, WITHOUT [id number] 12:46: 00Reason for exam:->Right arm paresthesiaFINAL REPORT [...] Verified Date /Time: 10/24/2017 12:46:53 Reading Location: [facility] Reading Room POCT-GLUCOSE [id number] 12:40:00 Test Item Value Reference Range Comments POC-GLUCOSE METER (BEAKER) 156 mg/dL 70-110 TESTED AT [address] (test wxdv=3495) [place] [address] T4, [id number] 12:09:00 Test Item Value Reference Range Comments FREE T4 (BEAKER) (test lzsg=460) 0.95 ng/dL 0.70-1.48 SEDIMENTATION [id number] 10:04:00 Test Item Value Reference Range Comments SEDIMENTATION RATE, ERYTHROCYTE (BEAKER) (test 59 mm/HR 0-20 gmtu=981) POCT-GLUCOSE [id number] 09:02:00 Test Item Value Reference Range Comments POC-GLUCOSE METER (BEAKER) 151 mg/dL 70-110 TESTED AT [facility] [address] [place] [address] (test gxnk=1941) [place] [address] TSH/FREE T4 IF [id number] 07:38:00 Test Item Value Reference Range Comments THYROID STIMULATING HORMONE (BEAKER) (test 0.30 uIU/mL 0.35-4.94 layr=098) [id number] 07:36:00 Test Item Value Reference Range Comments PHOSPHORUS (BEAKER) (test qicg=253) 2.5 mg/dL 2.3-4.7 [id number] 07:36:00 Test Item Value Reference Range Comments MAGNESIUM (BEAKER) (test meuc=989) 1.7 mg/dL 1.6-2.6 BASIC METABOLIC [id number] 07:36:00 Test Item Value Reference Range Comments SODIUM (BEAKER) (test 136 meq/L 136-145 jzem=081) POTASSIUM (BEAKER) (test 4.0 meq/L 3.5-5.1 dhxb=632) CHLORIDE (BEAKER) (test 104 meq/L 98-107 rqqh=343) CO2 (BEAKER) (test 25 meq/L 22-29 ktqi=366) BLOOD UREA NITROGEN 8 mg/dL 7-21 (BEAKER) (test cxjt=594) CREATININE (BEAKER) (test 0.63 mg/dL 0.57-1.25 fbzs=707) GLUCOSE RANDOM (BEAKER) 169 mg/dL 70-105 (test dyde=816) CALCIUM (BEAKER) (test 8.5 mg/dL 8.4-10.2 kctb=310) EGFR (BEAKER) (test 135 mL/min/1.73 sq m ESTIMATED GFR IS NOT lwhm=2501) ACCURATE CREATININE CLEARANCE IN PREDICTING GLOMERULAR FILTRATION RATE. ESTIMATED GFR IS NOT APPLICABLE FOR DIALYSIS PATIENTS. LIPID [id number] 07:36:00 Test Item Value Reference Range Comments TRIGLYCERIDES (BEAKER) (test cpzv=886) 83 mg/dL CHOLESTEROL (BEAKER) (test njrt=102) 129 mg/dL HDL CHOLESTEROL (BEAKER) (test stih=525) 29 mg/dL LDL CHOLESTEROL CALCULATED (BEAKER) (test 83 mg/dL vfko=469) Triglyceride Reference Range: Low Risk <150 Borderline 150- 199 High Risk 200-499 Very High Risk >=500Cholesterol Reference Range: Low Risk <200 Borderline 200-239 High Risk > 240HDL Cholesterol Reference Range: Low Risk >=60 High Risk <40LDL Cholesterol Reference Range: Optimal <100 Near Optimal 100-129 Borderline 130-159 High 160-189 Very High >=190HEPATIC FUNCTION [id number] 07:36:00 Test Item Value Reference Range Comments TOTAL PROTEIN (BEAKER) (test yaob=155) 7.1 gm/dL 6.0-8.3 ALBUMIN (BEAKER) (test pgxk=8472) 3.2 g/dL 3.5-5.0 BILIRUBIN TOTAL (BEAKER) (test nsyd=413) 1.9 mg/dL 0.2-1.2 BILIRUBIN DIRECT (BEAKER) (test lpkm=156) 0.7 mg/dL 0.1-0.5 ALKALINE PHOSPHATASE (BEAKER) (test zylj=168) 73 U/L 40-150 AST (SGOT) (BEAKER) (test byqi=622) 29 U/L 5-34 ALT (SGPT) (BEAKER) (test qyhn=958) 21 U/L 6-55 CREATINE KINASE (CK), TOTAL AND [id number] 07:36:00 Test Item Value Reference Range Comments CREATINE KINASE TOTAL (BEAKER) (test zusc=126) 106 U/L 29-200 CREATINE KINASE-MB (BEAKER) (test ghoj=293) 0.8 ng/mL 0.0-6.6 CREATINE KINASE-MB INDEX (BEAKER) (test dvhh=079) 0.8 % CK-MB Reference Range:<6.7 Normal6.7-10.0 Borderline>10.0 AbnormalTROPONIN [id number] 07:31:00 Test Item Value Reference Range Comments TROPONIN I (BEAKER) (test busj=856) < ng/mL 0.00-0.03 Troponin I (TnI) levels [...] acute neurological disease, and persistent tachyarrhythmia.BUN AND [id number] 07:26:00 Test Item Value Reference Range Comments BLOOD UREA NITROGEN 9 mg/dL 7-21 (BEAKER) (test smfp=214) CREATININE (BEAKER) (test 0.64 mg/dL 0.57-1.25 sxub=097) EGFR (BEAKER) (test 132 mL/min/1.73 sq m ESTIMATED GFR IS NOT yhzy=5686) ACCURATE CREATININE CLEARANCE IN PREDICTING GLOMERULAR FILTRATION RATE. ESTIMATED GFR IS NOT APPLICABLE FOR DIALYSIS PATIENTS. Specimen slightly ictericCBC W/PLT COUNT & AUTO [id number] 05:54 :00 Test Item Value Reference Range Comments WHITE BLOOD CELL COUNT (BEAKER) (test snje=688) 6.1 K/ L 3.5-10.5 RED BLOOD CELL COUNT (BEAKER) (test qhrx=821) 4.05 M/ L 4.63-6.08 HEMOGLOBIN (BEAKER) (test rrwm=332) 11.3 GM/DL 13.7-17.5 HEMATOCRIT (BEAKER) (test xksr=756) 35.8 % 40.1-51.0 MEAN CORPUSCULAR VOLUME (BEAKER) (test vtup=705) 88.4 fL 79.0-92.2 MEAN CORPUSCULAR HEMOGLOBIN (BEAKER) (test 27.9 pg 25.7-32.2 xcce=384) MEAN CORPUSCULAR HEMOGLOBIN CONC (BEAKER) (test 31.6 GM/DL 32.3-36.5 cxjx=999) RED CELL DISTRIBUTION WIDTH (BEAKER) (test 15.8 % 11.6-14.4 tehx=205) PLATELET COUNT (BEAKER) (test abeo=968) 87 K/CU MM 150-450 MEAN PLATELET VOLUME (BEAKER) (test lxtt=311) 12.5 fL 9.4-12.4 NUCLEATED RED BLOOD CELLS (BEAKER) (test 0 /100 WBC 0-0 jrbb=870) NEUTROPHILS RELATIVE PERCENT (BEAKER) (test 64 % bbsy=149) LYMPHOCYTES RELATIVE PERCENT (BEAKER) (test 21 % basb=021) MONOCYTES RELATIVE PERCENT (BEAKER) (test 13 % yuzv=627) EOSINOPHILS RELATIVE PERCENT (BEAKER) (test 1 % daqf=344) BASOPHILS RELATIVE PERCENT (BEAKER) (test 0 % szmm=554) NEUTROPHILS ABSOLUTE COUNT (BEAKER) (test 3.91 K/ L 1.78-5.38 gakq=747) LYMPHOCYTES ABSOLUTE COUNT (BEAKER) (test 1.27 K/ L 1.32-3.57 enws=583) MONOCYTES ABSOLUTE COUNT (BEAKER) (test gaqf=134) 0.78 K/ L 0.30-0.82 EOSINOPHILS ABSOLUTE COUNT (BEAKER) (test 0.07 K/ L 0.04-0.54 wzut=554) BASOPHILS ABSOLUTE COUNT (BEAKER) (test mgpj=282) 0.02 K/ L 0.01-0.08 IMMATURE GRANULOCYTES-RELATIVE PERCENT (BEAKER) 0 % 0-1 (test antn=0497) CREATINE KINASE (CK), TOTAL AND [id number] 00:32:00 Test Item Value Reference Range Comments CREATINE KINASE TOTAL (BEAKER) (test drvw=653) 113 U/L 29-200 CREATINE KINASE-MB (BEAKER) (test celb=829) 1.1 ng/mL 0.0-6.6 CREATINE KINASE-MB INDEX (BEAKER) (test kgsc=106) 1.0 % CK-MB Reference Range:<6.7 Normal6.7-10.0 Borderline>10.0 AbnormalTROPONIN [id number] 00:32:00 Test Item Value Reference Range Comments TROPONIN I (BEAKER) (test mcdf=898) 0.01 ng/mL 0.00-0.03 Troponin I (TnI) levels [...] acidosis, acute neurological disease, and persistent tachyarrhythmia.C-REACTIVE [id number] 00:25:00 Test Item Value Reference Range Comments C-REACTIVE PROTEIN (JAS) (test wdmm=366) 3.09 mg/dL 0.00-0.50
[2018-10-13] MEDS ORDERED: NA CHLORIDE 0.9% 1,000 ML ONE (07:27)
[2018-10-13] MEDS ORDERED: CEFAZOLIN 1GM (PREMIX IV) 1 GM/50 ML BAG ONE ×2 (07:27→09:02)
[2018-10-13] MEDS ORDERED: PROPOFOL 200 MG/20 ML VIAL IV ONE (07:30)
[2018-10-13] MEDS ORDERED: FENTANYL CITR 100 MCG/2 ML ONE (07:30)
[2018-10-13] MEDS ORDERED: ONDANSETRON 4 MG/2 ML VIAL ONE (07:31)
[2018-10-13] MEDS ORDERED: LIDOCAINE 2% MPF 5 ML VIAL ONE (07:31)
[2018-10-13] MEDS ORDERED: ROCURONIUM 50 MG/5 ML VIAL IV ONE (07:31)
[2018-10-13] MEDS ORDERED: BUPIVACA 0.25%/EPI 0.0005% MDV 50 ML VIAL ONE (07:58)
[2018-10-13] MEDS ORDERED: KETOROLAC 30 MG/ML INJ ONE (09:08)
--- NOTE | 2018-10-13 09:08 | P.OP ---
Preoperative diagnosis: LEFT posterior neck mass Postoperative diagnosis: LEFT posterior neck mass Primary procedure: Wide Excision of LEFT posterior neck mass Anesthesia: MAC + Local Estimated blood loss: <5cc Specimen: Fibrofatty tissue with skin Findings: fibrofatty tissue Complications: None Transferred to: Recovery Room Condition: Good
[2018-10-13 11:51] VITALS: BP 132/64; TEMP 96.9; O2SAT 92
--- NOTE | 2018-10-13 19:56 | OP ---
Date of Procedure: 10/13/2018 Surgeon: Ney Ny MD, Preoperative Diagnosis: Left posterior neck mass. Postoperative Diagnosis: Left posterior neck mass. Procedure Performed: Wide local excision of left posterior neck mass. Anesthesia: MAC plus local with 0.25% Marcaine. Estimated Blood Loss: Less than 5 cc. Specimen: Fibrofatty tissue of the skin. Findings: Approximately 4 cm x 2 cm x 2 cm fibrofatty tissue of the left posterior neck. Complications: None. Disposition: Transferred to recovery room in good condition. Procedure In Detail: After informed consent was obtained, the patient was brought to the operating r oom, prepped and draped in the usual sterile fashion. After adequate anesthesia was achieved, an are a of the left posterior neck just left of midline was anesthetized appropriately with 0.25% Marcaine with epinephrine. An ellipse of skin was taken out sharply as this was quite scarred in from previou s surgeries. I dissected down to fibrofatty tissue, which was noted to be the area of fullness and t enderness the patient had identified preoperatively. I dissected this entire area for approximately 4 x 2 x 2 cm circumferentially. I then sent the specimen off for pathologic examination. I then ach ieved hemostasis with electrocautery, irrigated the area, and closed it with an interrupted 2-0 nylon suture with good approximation of tissues. I then looked at his previous wound on the left posterio r neck and repacked this wound with quarter-inch iodoform packing from previous wound care. A steril e dressing was placed over top. The patient tolerated the procedure well without evidence of complication, transferred to the PACU in good condition. All counts were correct at the end of the case. SANDRA/MARIANA Voice ID: [id number] Report ID: [id number]
== END 2018-10-13 11:32 | disposition home or self-care (01) ==
LOC: OR 07:03
PROVIDERS: ATTEND Surgery
PROC: 0JB50ZZ Excision of Left Neck Subcutaneous Tissue and Fascia, Open Approach (ICD-10-PCS; principal; 2018-10-13 08:30)
DX: D36.7 Benign neoplasm of other specified sites (principal); E11.9 Type 2 diabetes mellitus without complications; I10 Essential (primary) hypertension; G89.4 Chronic pain syndrome; G47.30 Sleep apnea, unspecified; R60.9 Edema, unspecified; E66.01 Morbid (severe) obesity due to excess calories; Z68.43 Body mass index [BMI] 50.0-59.9, adult; F41.8 Other specified anxiety disorders; Z88.6 Allergy status to analgesic agent; Z88.0 Allergy status to penicillin; Z88.7 Allergy status to serum and vaccine; Z82.49 Family history of ischemic heart disease and other diseases of the circulatory system; Z82.3 Family history of stroke
CPT/HCPCS: 11424; 82962 ×2; 88304; J0690 ×2; J2405; J2704; J3010; J7030

== ENCOUNTER 2020-09-25 16:47 | Inpatient (IN) | payer OTHER ==
--- OUTSIDE RECORDS SUMMARY | 2020-09-25 16:49 | XMS REPORT | Clinical Summary ---
:1965 [facility] Address [address] [place] [address] Care Team Providers Name Role Phone Unavailable [...] by mouth tablet daily. sitaGLIPtin (JANUVIA) 50 MG Take 50 mg by 0 Active tablet mouth daily. furosemide (LASIX) 20 MG Take 20 mg by 0 Active tablet mouth 2 (two) times daily. hydroCHLOROthiazide Take 12.5 mg 0 Active (HYDRODIURIL) 12.5 MG by mouth tablet daily. Active Problems Problem Noted Date Infected sebaceous cyst, posterior neck s/p I&D (10/25) 10/24/2017 Diabetes mellitus, type 2 10/24/2017 Essential hypertension 10/24/2017 Right arm pain 10/24/2017 Cellulitis, neck 10/23/2017 Morbid obesity 07/13/2016 Family History Medical History Relation Name Comments Arthritis Brother Alcohol abuse Father Arthritis Father Arthritis Mother Relation Name Status Comments Brother Father Mother Social History Tobacco Use Types Packs/Day Years Used Date Never Smoker Smokeless Tobacco: Never Used Tobacco Cessation: Counseling Given: No Sex Assigned at Date Recorded Not on file Last Filed Vital Signs Not on file Plan of Treatment Health Maintenance Due Date Last Done Comments COLON CANCER SCREENING COLONOSCOPY 1965 PNEUMOCOCCAL VACCINE 0-64 YRS (1 of 1 - PPSV23) 1972 DIABETIC EYE EXAM 1976 DIABETIC FOOT EXAM 1976 URINE MICROALBUMIN 1976 HEMOGLOBIN A1C 01/22/2018 10/24/2017 MEDICARE ANNUAL WELLNESS (YEAR 2 or FIRST YEAR if no 04/30/2018 IPPE) INFLUENZA VACCINE (#1) 2020 LIPID PANEL 10/24/2020 10/24/2017 Results Not on fileafter 09/25/2019 Advance Directives For more information, please contact: [phone] Code Status Date Activated Date Inactivated Comments Full Code 10/23/2017 9:35 PM 10/28/2017 9:20 PM This code status was determined by: Patient Full Code 07/13/2016 7:29 PM 07/17/2016 7:20 PM This code status was determined by: Patient
--- OUTSIDE RECORDS SUMMARY | 2020-09-25 16:50 | XMS REPORT | Continuity of Care Document ---
:1965 Author Organization [facility] t Address [facility] 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 2 00:00: Medical 00 [facility] Essential Essential Disease Active [facility] hypertensi hypertensi 10-24 Ruba kes - on on 00:00: Medical 00 [place] Right arm Right arm Disease Active [facility] pain pain 10-24 [facility]: Medical 00 [place] Cellulitis Cellulitis Disease Active [facility] , neck , neck 10-23 [facility] - 00:00: Medical 00 [place] Morbid Morbid Disease Active 2015-[address] [facility] obesity obesity 0-15 [facility] - 00:[facility]: Medical 00 Center Allergies, Adverse Reactions, Alerts Allergy Allergy Status Severity Reaction(s) Onset Inactive Treating Comm ents Source Name Type Date Date Clinician Salicyla Drug Active Mild 2015-[address] tha Allergy 0-15 patient. [facility]: Medical 00 Center Penicill Drug Active Other (See 2015-[address] [facility] [address] ins Allergy Comments) 0-15 not know. [place] es - 00:00: Was told Medical 00 so by his Center family. Family History Family Member Diagnosis Comments Start Date Stop Date Source Natural brother Arthritis [facility] Natural father Alcohol abuse [facility] Natural father Arthritis [facility] Natural mother Arthritis [facility] Social History Social Habit Start Date Stop Date Quantity Comments Source Alcohol Comment pt drinks [facility] socially, once or Medical Center twice a year. Sex Assigned At [facility] Tobacco use and 2017-10-27 2017-10-27 Never used [facility] - exposure 00:00:00 00:00:00 [facility] Center Smoking Status Start Date Stop Date Source Never smoker [facility] edical Aubrey Medications Ordered Filled Start Stop Current Ordering Indication Dosage Frequency Signature Comments Components Source Medication Medication Date Date Medication? Clinician (SIG) Name Name potassium Yes 20meq QD Take [address] chloride SA 1-30 mEq by [facility] - (K-DUR,KLOR 19:20: mouth Medic al -CON) 20 43 daily. Center MEQ tablet sitaGLIPtin Yes 50mg QD Take [address] (JANUVIA) 1-30 by mouth [facility] - 50 MG 19:20: daily. Medical tablet 43 Center furosemide Yes 20mg Q.5D Take [address] (LASIX) 20 1-30 by mouth 2 [facility] es - MG tablet 19:20: (two) Medical 43 times Center daily. hydroCHLORO Yes 12.5mg QD Take 12.[address] thiazide 1-30 mg by [facility] - (HYDRODIURI 19:20: mouth Medic al L) 12.5 MG 43 daily. Center tablet Procedures This patient has no known procedures. Plan of Care Planned Activity Planned Date Details Comments Source Future Scheduled 2020-10-[address] [facility] - Test 00:00:00 (procedure) [code = [facility] Center [id number]] Future Scheduled 2020-05-30 INFLUENZA VACCINE (#1) [facility] Test 00:[facility]:00 [code = INFLUENZA Medical Ce nter VACCINE (#1)] Future Scheduled 2018-04-[address] [facility] - Test 00:00:00 WELLNESS (YEAR 2 or Medical Center FIRST YEAR if no IPPE) [code = MEDICARE ANNUAL WELLNESS (YEAR 2 or FIRST YEAR if no IPPE)] Future Scheduled 2018-01-[address] [facility] - Test 00:00:00 measurement Medical Center (procedure) [code = 57442923] Future Scheduled [address] DIABETIC EYE EXAM [facility] - Test 00:00:00 [code = DIABETIC EYE Medical Center EXAM] Future Scheduled [address] [address] [facility] - Test 00:00:00 examination Medical Center (regime/therapy) [code = [id number]] Future Scheduled 1976 Urine screening for [facility] - Test 00:00:00 protein (procedure) Medical Center [code = [id number]] Future Scheduled [address] [facility] - Test 00:00:00 0-64 YRS (1 of 1 - Medical C enter PPSV23) [code = PNEUMOCOCCAL VACCINE 0-64 YRS (1 of 1 - PPSV23)] Future Scheduled [address] [facility] - Test 00:00:00 malignant neoplasm of Medica l Center colon (procedure) [code = [id number]] Results Test Description Test Time Test Comments Results Result Comments Source AFB CULTURE + SMEAR 2017-12-09 13:17:00 Test Item Value Reference Range Interpretation Comme nts CULTURE (BEAKER) (test code = 1095) No acid-fast bacilli isolated i n 42 days AFB SMEAR (BEAKER) (test code = 994) No acid fast bacilli seen FUNGUS CULTURE + [id number] 11:30:00 Test Item Value Reference Range Interpretation Comments CULTURE (BEAKER) (test No fungus isolated in code = 1095) 28 days FUNGUS SMEAR (BEAKER) No fungi seen (test code = 1406) ANAEROBIC [id number] 04:39:00 Test Item Value Reference Range Interpretation Comments CULTURE (BEAKER) (test code A 1+ Finegoldia magna = 1095) SURGICALLY OBTAINED CULTURE + GRAM [id number] 10:26:00 Test Item Value Reference Range Interpretation Comments CULTURE (BEAKER) (test code = 1095) Amikacin (test code = S 1) Ampicillin + Sulbactam S (test code = 6) Aztreonam (test code = S 32) Cefepime (test code = S 51) Cefoxitin (test code = S 68) Ceftazidime (test code S = 27) Ceftriaxone (test code S = 52) Ertapenem (test code = S 38) Gentamicin (test code = S 18) Levofloxacin (test code S = 22) Meropenem (test code = S 34) Nitrofurantoin (test R code = 23) Piperacillin + S Tazobactam (test code = 29) Tetracycline (test code R = 2) Tobramycin (test code = S 25) Trimethoprim + S Sulfamethoxazole (test code = 47) CULTURE (BEAKER) (test A 1+ Pr oteus code = 1095) mirabilis GRAM STAIN RESULT 4+ WBCs (BEAKER) (test code = 1123) GRAM STAIN RESULT <1+ gram (BEAKER) (test code = positive cocci [id number]) in pairs BLOOD [id number] 05:02:00 Test Item Value Reference Range Interpretation Comments CULTURE (BEAKER) (test No growth in 5 days code = 1095) BLOOD [id number] 05:02:00 Test Item Value Reference Range Interpretation Comments CULTURE (BEAKER) (test No growth in 5 days code = 1095) POCT-GLUCOSE [id number] 12:56:00 Test Item Value Reference Range Interpretation Comments POC-GLUCOSE METER 127 mg/dL 70-110 H TESTED AT [facility] ([facility]) (test code = [place] 1538) [address] TISSUE [id number] 11:24:00Surgical Pathology Report Case: [id number] Authorizing Provider: Oniel Dejesus MD Collected: 10/25/2017 1145 Ordering Location: [address] Received: 10/27/2017 0729 Service Pathologist: Sherin Lui MD Specimen: Soft Tissue, Other, Neck Cystic Wall A. NECK, CYST WALL, EXCISION:- INFLAMED CYST WALL - NEGATIVE FOR MALIGNANCY Signing Pathologist Direct Phone Line: [phone] signed by Sherin Lui MD on 10/28/2017 at 11:24 [id number] neck abscessNeck cystic wallThe specimen is received [...] keratin (or) giant cell reaction is identified.CALCIUM, [id number] 06:20:00 Test Item Value Reference Range Interpretation Comments CALCIUM IONIZED (BEAKER) (test 0.93 mmol/L 1.12-1.27 L code = 698) PH, BLOOD (BEAKER) (test code = 7.36 1810) [id number] 05:23:00 Test Item Value Reference Range Interpretation Comments PHOSPHORUS (BEAKER) (test code = 3.2 mg/dL 2.3-4.7 604) [id number] 05:23:00 Test Item Value Reference Range Interpretation Comments MAGNESIUM (BEAKER) (test code = 1.8 mg/dL 1.6-2.6 627) BASIC METABOLIC [id number] 05:23:00 Test Item Value Reference Range Interpretation Comments SODIUM (BEAKER) 137 meq/L 136-145 (test code = 381) POTASSIUM (BEAKER) 3.6 meq/L 3.5-5.1 (test code = 379) CHLORIDE (BEAKER) 100 meq/L 98-107 (test code = 382) CO2 (BEAKER) (test 29 meq/L 22-29 code = 355) BLOOD UREA NITROGEN 17 mg/dL 7-21 (BEAKER) (test code = 354) CREATININE (BEAKER) 1.03 mg/dL 0.57-1.25 (test code = 358) GLUCOSE RANDOM 125 mg/dL 70-105 H (BEAKER) (test code = 652) CALCIUM (BEAKER) 9.2 mg/dL 8.4-10.2 (test code = 697) EGFR (BEAKER) (test 76 mL/min/1.73 ESTIMA LUTHER GFR IS code = 1092) sq m NOT ACCURATE CREATININE CLEARANCE IN PREDICTING GLOMERULAR FILTRATION RATE . ESTIMATED GFR I S NOT APPLICABLE FOR DIALYSIS PATIEN TS. CBC W/PLT COUNT & AUTO [id number] 05:07:00 Test Item Value Reference Range Interpretation Comments WHITE BLOOD CELL COUNT (BEAKER) 3.9 K/ L 3.5-10.5 (test code = 775) RED BLOOD CELL COUNT (BEAKER) 4.12 M/ L 4.63-6.08 L (test code = 761) HEMOGLOBIN (BEAKER) (test code = 11.4 GM/DL 13.7-17.5 L 410) HEMATOCRIT (BEAKER) (test code = 37.0 % 40.1-51.0 L 411) MEAN CORPUSCULAR VOLUME (BEAKER) 89.8 fL 79.0-92.2 (test code = 753) MEAN CORPUSCULAR HEMOGLOBIN 27.7 pg 25.7-32.2 (BEAKER) (test code = 751) MEAN CORPUSCULAR HEMOGLOBIN CONC 30.8 GM/DL 32.3-36.5 L (BEAKER) (test code = 752) RED CELL DISTRIBUTION WIDTH 15.8 % 11.6-14.4 H (BEAKER) (test code = 412) PLATELET COUNT (BEAKER) (test code 92 K/CU MM 150-450 L = 756) MEAN PLATELET VOLUME (BEAKER) 11.6 fL 9.4-12.4 (test code = 754) NUCLEATED RED BLOOD CELLS (BEAKER) 0 /100 WBC 0-0 (test code = 413) NEUTROPHILS RELATIVE PERCENT 60 % (BEAKER) (test code = 429) LYMPHOCYTES RELATIVE PERCENT 22 % (BEAKER) (test code = 430) MONOCYTES RELATIVE PERCENT 14 % (BEAKER) (test code = 431) EOSINOPHILS RELATIVE PERCENT 4 % (BEAKER) (test code = 432) BASOPHILS RELATIVE PERCENT 1 % (BEAKER) (test code = 437) NEUTROPHILS ABSOLUTE COUNT 2.29 K/ L 1.78-5.38 (BEAKER) (test code = 670) LYMPHOCYTES ABSOLUTE COUNT 0.83 K/ L 1.32-3.57 L (BEAKER) (test code = 414) MONOCYTES ABSOLUTE COUNT (BEAKER) 0.54 K/ L 0.30-0.82 (test code = 415) EOSINOPHILS ABSOLUTE COUNT 0.15 K/ L 0.04-0.54 (BEAKER) (test code = 416) BASOPHILS ABSOLUTE COUNT (BEAKER) 0.02 K/ L 0.01-0.08 (test code = 417) IMMATURE GRANULOCYTES-RELATIVE 1 % 0-1 PERCENT (BEAKER) (test code = 2801) POCT-GLUCOSE [id number] 21:34:00 Test Item Value Reference Range Interpretation Comments POC-GLUCOSE METER 164 mg/dL 70-110 H TESTED AT [place] [address] (BEAKER) (test code = [place] 1538) [address] POCT-GLUCOSE [id number] 17:56:00 Test Item Value Reference Range Interpretation Comments POC-GLUCOSE METER 119 mg/dL 70-110 H TESTED AT [place] [address] (BEAKER) (test code = [place] 15[address]) [address] SPIN/CONCENTRATION [id number] 14:02:00 Test Item Value Reference Range Interpretation Comments CONCENTRATION CHARGED (BEAKER) (test Done code = 2657) POCT-GLUCOSE [id number] 12:51:00 Test Item Value Reference Range Interpretation Comments POC-GLUCOSE METER 133 mg/dL 70-110 H TESTED AT [place] [address] (BEAKER) (test code = [place] 15[address]) [address] POCT-GLUCOSE [id number] 08:32:00 Test Item Value Reference Range Interpretation Comments POC-GLUCOSE METER 139 mg/dL 70-110 H TESTED AT [place] [address] (BEAKER) (test code = [place] 1538) [address] CALCIUM, [id number] 06:56:00 Test Item Value Reference Range Interpretation Comments CALCIUM IONIZED (BEAKER) (test 0.82 mmol/L 1.12-1.27 L code = 698) PH, BLOOD (BEAKER) (test code = 7.34 1810) [id number] 05:16:00 Test Item Value Reference Range Interpretation Comments PHOSPHORUS (BEAKER) (test code = 3.5 mg/dL 2.3-4.7 604) [id number] 05:16:00 Test Item Value Reference Range Interpretation Comments MAGNESIUM (BEAKER) (test code = 1.9 mg/dL 1.6-2.6 627) BASIC METABOLIC [id number] 05:16:00 Test Item Value Reference Range Interpretation Comments SODIUM (BEAKER) 136 meq/L 136-145 (test code = 381) POTASSIUM (BEAKER) 3.7 meq/L 3.5-5.1 (test code = 379) CHLORIDE (BEAKER) 100 meq/L 98-107 (test code = 382) CO2 (BEAKER) (test 27 meq/L 22-29 code = 355) BLOOD UREA NITROGEN 17 mg/dL 7-21 (BEAKER) (test code = 354) CREATININE (BEAKER) 1.16 mg/dL 0.57-1.25 (test code = 358) GLUCOSE RANDOM 134 mg/dL 70-105 H (BEAKER) (test code = 652) CALCIUM (BEAKER) 9.0 mg/dL 8.4-10.2 (test code = 697) EGFR (BEAKER) (test 67 mL/min/1.73 ESTIMA LUTHER GFR IS code = 1092) sq m NOT ACCURATE CREATININE CLEARANCE IN PREDICTING GLOMERULAR FILTRATION RATE . ESTIMATED GFR I S NOT APPLICABLE FOR DIALYSIS PATIEN TS. Specimen slightly ictericCBC W/PLT COUNT & AUTO [id number] 04:50:00 Test Item Value Reference Range Interpretation Comments WHITE BLOOD CELL COUNT (BEAKER) 4.7 K/ L 3.5-10.5 (test code = 775) RED BLOOD CELL COUNT (BEAKER) 4.18 M/ L 4.63-6.08 L (test code = 761) HEMOGLOBIN (BEAKER) (test code = 11.6 GM/DL 13.7-17.5 L 410) HEMATOCRIT (BEAKER) (test code = 37.8 % 40.1-51.0 L 411) MEAN CORPUSCULAR VOLUME (BEAKER) 90.4 fL 79.0-92.2 (test code = 753) MEAN CORPUSCULAR HEMOGLOBIN 27.8 pg 25.7-32.2 (BEAKER) (test code = 751) MEAN CORPUSCULAR HEMOGLOBIN CONC 30.7 GM/DL 32.3-36.5 L (BEAKER) (test code = 752) RED CELL DISTRIBUTION WIDTH 15.8 % 11.6-14.4 H (BEAKER) (test code = 412) PLATELET COUNT (BEAKER) (test code 88 K/CU MM 150-450 L = 756) MEAN PLATELET VOLUME (BEAKER) 12.1 fL 9.4-12.4 (test code = 754) NUCLEATED RED BLOOD CELLS (BEAKER) 0 /100 WBC 0-0 (test code = 413) NEUTROPHILS RELATIVE PERCENT 59 % (BEAKER) (test code = 429) LYMPHOCYTES RELATIVE PERCENT 21 % (BEAKER) (test code = 430) MONOCYTES RELATIVE PERCENT 15 % (BEAKER) (test code = 431) EOSINOPHILS RELATIVE PERCENT 4 % (BEAKER) (test code = 432) BASOPHILS RELATIVE PERCENT 0 % (BEAKER) (test code = 437) NEUTROPHILS ABSOLUTE COUNT 2.79 K/ L 1.78-5.38 (BEAKER) (test code = 670) LYMPHOCYTES ABSOLUTE COUNT 0.98 K/ L 1.32-3.57 L (BEAKER) (test code = 414) MONOCYTES ABSOLUTE COUNT (BEAKER) 0.73 K/ L 0.30-0.82 (test code = 415) EOSINOPHILS ABSOLUTE COUNT 0.19 K/ L 0.04-0.54 (BEAKER) (test code = 416) BASOPHILS ABSOLUTE COUNT (BEAKER) 0.02 K/ L 0.01-0.08 (test code = 417) IMMATURE GRANULOCYTES-RELATIVE 0 % 0-1 PERCENT (BEAKER) (test code = 2801) POCT-GLUCOSE [id number] 21:14:00 Test Item Value Reference Range Interpretation Comments POC-GLUCOSE METER 169 mg/dL 70-110 H TESTED AT [place] [address] ([facility]) (test code = [facility] 1538) [address] POCT-GLUCOSE [id number] 19:08:00 Test Item Value Reference Range Interpretation Comments POC-GLUCOSE METER 146 mg/dL 70-110 H TESTED AT [place] [address] ([facility]) (test code = [facility] 1538) [address] POCT-GLUCOSE [id number] 13:25:00 Test Item Value Reference Range Interpretation Comments POC-GLUCOSE METER 141 mg/dL 70-110 H TESTED AT [place] [address] ([facility]) (test code = [facility] 1538) [address] POCT-GLUCOSE [id number] 08:18:00 Test Item Value Reference Range Interpretation Comments POC-GLUCOSE METER 133 mg/dL 70-110 H TESTED AT [place] [address] ([facility]) (test code = [facility] 1538) [address] CBC W/PLT COUNT & AUTO [id number] 06:08:00 Test Item Value Reference Range Interpretation Comments WHITE BLOOD CELL COUNT ([facility]) 4.9 K/ L 3.5-10.5 (test code = 775) RED BLOOD CELL COUNT (BEAKER) 3.92 M/ L 4.63-6.08 L (test code = 761) HEMOGLOBIN (BEAKER) (test code = 11.0 GM/DL 13.7-17.5 L 410) HEMATOCRIT (BEAKER) (test code = 35.2 % 40.1-51.0 L 411) MEAN CORPUSCULAR VOLUME (BEAKER) 89.8 fL 79.0-92.2 (test code = 753) MEAN CORPUSCULAR HEMOGLOBIN 28.1 pg 25.7-32.2 (BEAKER) (test code = 751) MEAN CORPUSCULAR HEMOGLOBIN CONC 31.3 GM/DL 32.3-36.5 L (BEAKER) (test code = 752) RED CELL DISTRIBUTION WIDTH 16.0 % 11.6-14.4 H (BEAKER) (test code = 412) PLATELET COUNT (BEAKER) (test code 80 K/CU MM 150-450 L = 756) MEAN PLATELET VOLUME (BEAKER) 11.4 fL 9.4-12.4 (test code = 754) NUCLEATED RED BLOOD CELLS (BEAKER) 0 /100 WBC 0-0 (test code = 413) NEUTROPHILS RELATIVE PERCENT 62 % (BEAKER) (test code = 429) LYMPHOCYTES RELATIVE PERCENT 19 % (BEAKER) (test code = 430) MONOCYTES RELATIVE PERCENT 15 % (BEAKER) (test code = 431) EOSINOPHILS RELATIVE PERCENT 3 % (BEAKER) (test code = 432) BASOPHILS RELATIVE PERCENT 0 % (BEAKER) (test code = 437) NEUTROPHILS ABSOLUTE COUNT 3.03 K/ L 1.78-5.38 (BEAKER) (test code = 670) LYMPHOCYTES ABSOLUTE COUNT 0.92 K/ L 1.32-3.57 L (BEAKER) (test code = 414) MONOCYTES ABSOLUTE COUNT (BEAKER) 0.74 K/ L 0.30-0.82 (test code = 415) EOSINOPHILS ABSOLUTE COUNT 0.16 K/ L 0.04-0.54 (BEAKER) (test code = 416) BASOPHILS ABSOLUTE COUNT (BEAKER) 0.01 K/ L 0.01-0.08 (test code = 417) IMMATURE GRANULOCYTES-RELATIVE 1 % 0-1 PERCENT (BEAKER) (test code = 2801) [id number] 05:13:00 Test Item Value Reference Range Interpretation Comments PHOSPHORUS (BEAKER) (test code = 3.4 mg/dL 2.3-4.7 604) [id number] 05:13:00 Test Item Value Reference Range Interpretation Comments MAGNESIUM (BEAKER) (test code = 1.9 mg/dL 1.6-2.6 627) BASIC METABOLIC [id number] 05:13:00 Test Item Value Reference Range Interpretation Comments SODIUM (BEAKER) 136 meq/L 136-145 (test code = 381) POTASSIUM (BEAKER) 3.6 meq/L 3.5-5.1 (test code = 379) CHLORIDE (BEAKER) 102 meq/L 98-107 (test code = 382) CO2 (BEAKER) (test 26 meq/L 22-29 code = 355) BLOOD UREA NITROGEN 15 mg/dL 7-21 (BEAKER) (test code = 354) CREATININE (BEAKER) 1.07 mg/dL 0.57-1.25 (test code = 358) GLUCOSE RANDOM 134 mg/dL 70-105 H (BEAKER) (test code = 652) CALCIUM (BEAKER) 8.5 mg/dL 8.4-10.2 (test code = 697) EGFR (BEAKER) (test 73 mL/min/1.73 ESTIMA LUTHER GFR IS code = 1092) sq m NOT ACCURATE CREATININE CLEARANCE IN PREDICTING GLOMERULAR FILTRATION RATE . ESTIMATED GFR I S NOT APPLICABLE FOR DIALYSIS PATIEN TS. Specimen slightly ictericHEPATIC FUNCTION [id number] 05:13:00 Test Item Value Reference Range Interpretation Comments TOTAL PROTEIN (BEAKER) (test code = 6.8 gm/dL 6.0-8.3 770) ALBUMIN (BEAKER) (test code = 1145) 3.0 g/dL 3.5-5.0 L BILIRUBIN TOTAL (BEAKER) (test code 2.9 mg/dL 0.2-1.2 H = 377) BILIRUBIN DIRECT (BEAKER) (test 1.1 mg/dL 0.1-0.5 H code = 706) ALKALINE PHOSPHATASE (BEAKER) (test 63 U/L 40-150 code = 346) AST (SGOT) (BEAKER) (test code = 33 U/L 5-34 353) ALT (SGPT) (BEAKER) (test code = 16 U/L 6-55 347) Specimen slightly ictericVANCOMYCIN LEVEL, [id number] 05:05:00 Test Item Value Reference Range Interpretation Comments VANCOMYCIN TROUGH ([facility]) (test 20.0 ug/mL 10.0-20.0 code = 522) Please draw 30 minutes prior to vancomycin due time. Do not administer if vancomycin trough is >20 mcg/mL. Thank you!POCT-GLUCOSE [id number] 20:11:00 Test Item Value Reference Range Interpretation Comments POC-GLUCOSE METER 153 mg/dL 70-110 H TESTED AT [place] [address] ([facility]) (test code = [facility] 1538) [address] POCT-GLUCOSE [id number] 16:31:00 Test Item Value Reference Range Interpretation Comments POC-GLUCOSE METER 168 mg/dL 70-110 H TESTED AT [place] [address] ([facility]) (test code = [facility] 1538) [address] POCT-GLUCOSE [id number] 12:39:00 Test Item Value Reference Range Interpretation Comments POC-GLUCOSE METER 161 mg/dL 70-110 H TESTED AT [place] [address] ([facility]) (test code = [facility] 1538) [address] T4, [id number] 09:05:00 Test Item Value Reference Range Interpretation Comments FREE T4 (BEAKER) (test code = 655) 1.00 ng/dL 0.70-1.48 T3, [id number] 09:05:00 Test Item Value Reference Range Interpretation Comments T3 FREE ([facility]) (test code = 908) 2.33 pg/mL 1.71-3.71 CALCIUM, [id number] 07:37:00 Test Item Value Reference Range Interpretation Comments CALCIUM IONIZED (BEAKER) (test 0.97 mmol/L 1.12-1.27 L code = 698) PH, BLOOD ([facility]) (test code = 7.38 1810) [id number] 06:53:00 Test Item Value Reference Range Interpretation Comments PHOSPHORUS (BEAKER) (test code = 2.8 mg/dL 2.3-4.7 604) [id number] 06:53:00 Test Item Value Reference Range Interpretation Comments MAGNESIUM (BEAKER) (test code = 1.6 mg/dL 1.6-2.6 627) BASIC METABOLIC [id number] 06:53:00 Test Item Value Reference Range Interpretation Comments SODIUM (BEAKER) 133 meq/L 136-145 L (test code = 381) POTASSIUM (BEAKER) 3.9 meq/L 3.5-5.1 (test code = 379) CHLORIDE (BEAKER) 101 meq/L 98-107 (test code = 382) CO2 (BEAKER) (test 25 meq/L 22-29 code = 355) BLOOD UREA NITROGEN 6 mg/dL 7-21 L (BEAKER) (test code = 354) CREATININE (BEAKER) 0.65 mg/dL 0.57-1.25 (test code = 358) GLUCOSE RANDOM 148 mg/dL 70-105 H (BEAKER) (test code = 652) CALCIUM (BEAKER) 8.3 mg/dL 8.4-10.2 L (test code = 697) EGFR (BEAKER) (test 130 mL/min/1.73 ESTIM ATED GFR IS code = 1092) sq m NOT ACCURATE CREATININE CLEARANCE IN PREDICTING GLOMERULAR FILTRATION RATE . ESTIMATED GFR I S NOT APPLICABLE FOR DIALYSIS PATIEN TS. Specimen slightly ictericHEPATIC FUNCTION [id number] 06:53:00 Test Item Value Reference Range Interpretation Comments TOTAL PROTEIN (BEAKER) (test code = 7.1 gm/dL 6.0-8.3 770) ALBUMIN (BEAKER) (test code = 1145) 3.2 g/dL 3.5-5.0 L BILIRUBIN TOTAL (BEAKER) (test code 3.2 mg/dL 0.2-1.2 H = 377) BILIRUBIN DIRECT (BEAKER) (test 0.9 mg/dL 0.1-0.5 H code = 706) ALKALINE PHOSPHATASE (BEAKER) (test 66 U/L 40-150 code = 346) AST (SGOT) (BEAKER) (test code = 27 U/L 5-34 353) ALT (SGPT) (BEAKER) (test code = 18 U/L 6-55 347) Specimen slightly ictericCBC W/PLT COUNT & AUTO [id number] 05:17:00 Test Item Value Reference Range Interpretation Comments WHITE BLOOD CELL COUNT (BEAKER) 5.6 K/ L 3.5-10.5 (test code = 775) RED BLOOD CELL COUNT (BEAKER) 4.19 M/ L 4.63-6.08 L (test code = 761) HEMOGLOBIN (BEAKER) (test code = 11.7 GM/DL 13.7-17.5 L 410) HEMATOCRIT (BEAKER) (test code = 37.6 % 40.1-51.0 L 411) MEAN CORPUSCULAR VOLUME (BEAKER) 89.7 fL 79.0-92.2 (test code = 753) MEAN CORPUSCULAR HEMOGLOBIN 27.9 pg 25.7-32.2 (BEAKER) (test code = 751) MEAN CORPUSCULAR HEMOGLOBIN CONC 31.1 GM/DL 32.3-36.5 L (BEAKER) (test code = 752) RED CELL DISTRIBUTION WIDTH 15.9 % 11.6-14.4 H (BEAKER) (test code = 412) PLATELET COUNT (BEAKER) (test code 83 K/CU MM 150-450 L = 756) MEAN PLATELET VOLUME (BEAKER) 12.1 fL 9.4-12.4 (test code = 754) NUCLEATED RED BLOOD CELLS (BEAKER) 0 /100 WBC 0-0 (test code = 413) NEUTROPHILS RELATIVE PERCENT 69 % (BEAKER) (test code = 429) LYMPHOCYTES RELATIVE PERCENT 16 % (BEAKER) (test code = 430) MONOCYTES RELATIVE PERCENT 12 % (BEAKER) (test code = 431) EOSINOPHILS RELATIVE PERCENT 2 % (BEAKER) (test code = 432) BASOPHILS RELATIVE PERCENT 0 % (BEAKER) (test code = 437) NEUTROPHILS ABSOLUTE COUNT 3.86 K/ L 1.78-5.38 (BEAKER) (test code = 670) LYMPHOCYTES ABSOLUTE COUNT 0.91 K/ L 1.32-3.57 L (BEAKER) (test code = 414) MONOCYTES ABSOLUTE COUNT (BEAKER) 0.64 K/ L 0.30-0.82 (test code = 415) EOSINOPHILS ABSOLUTE COUNT 0.11 K/ L 0.04-0.54 (BEAKER) (test code = 416) BASOPHILS ABSOLUTE COUNT (BEAKER) 0.02 K/ L 0.01-0.08 (test code = 417) IMMATURE GRANULOCYTES-RELATIVE 1 % 0-1 PERCENT (BEAKER) (test code = 2801) POCT-GLUCOSE [id number] 21:13:00 Test Item Value Reference Range Interpretation Comments POC-GLUCOSE METER 157 mg/dL 70-110 H TESTED AT [facility] [address] ([facility]) (test code = [place] 1538) [id number] POCT-GLUCOSE [id number] 18:28:00 Test Item Value Reference Range Interpretation Comments POC-GLUCOSE METER 159 mg/dL 70-110 H TESTED AT [facility] [address] ([facility]) (test code = BRUCE Bobo [facility] 1538) [id number] U/S, [id number] 17:36:00Reason for exam:->posterior and right lateral neck, eval concern for infected cyst vs painful massFINAL REPORT TECHNIQUE: Focused grayscale ultrasound of the posterior neck. IN DICATION: 51-year-old man with mass. COMPARISON: None. FINDINGS:5.1 [...] MDReport Verified Date/Time: 10/24/2017 17:36:55 Reading Location: [address] Ultrasound Reading Room CREATINE KINASE (CK), TOTAL AND [id number] 13:13:00 Test Item Value Reference Range Interpretation Comments CREATINE KINASE TOTAL (BEAKER) 122 U/L 29-200 (test code = 380) CREATINE KINASE-MB (BEAKER) (test 1.0 ng/mL 0.0-6.6 code = 750) CREATINE KINASE-MB INDEX (BEAKER) 0.8 % (test code = 395) CK-MB Reference Range:<6.7 Normal6.7-10.0 Borderline>10.0 AbnormalTROPONIN [id number] 13:13:00 Test Item Value Reference Range Interpretation Comments TROPONIN I (JAS) (test code = 397) < ng/mL 0.00-0.03 Troponin I (TnI) levels [...] acidosis, acute neurological disease, and persistent tachyarrhythmia.HEMOGLOBIN [id number] 13:09:00 Test Item Value Reference Range Interpretation Comments HEMOGLOBIN A1C (JAS) (test code = 9.0 % 4.3-6.1 H 368) RAD, CHEST, 1 VIEW, NON [id number] 12:58:00Reason for exam:->Right upper chest painShould this be performed at the bedside?->YesFINAL REPORT TECHNIQUE: Frontal chest radiograph dated 10/24/2017. CLINICAL HI STORY: Right upper chest pain COMPARISON STUDY: Chest radiograph dated 07/16/2016 FINDINGS: Lungs are clear. No pleural effusion or pneumothorax. Cardiomediastinal silhouette is normal in size. No pulmonary edema. No bone or soft tissue abnormalities are seen. IMPRESSION: Clear lungs. Signed: Vinod Guzmánepgiovany Verified Date/Time: 10/24/2017 12:58:39 Reading Location: [facility] Radiology Reading Room CT, BRAIN, WITHOUT [id number] 12:46:00 Reason for exam:->Right arm paresthesiaFINAL REPORT CT head [...] is advised. Signed: Mary Pratt MDReport Verified Date/Time: 10/24/2017 12:46:53 Reading Location: [facility] Radiology Reading Room POCT-GLUCOSE METER 2017-10-24 12:40:00 Test Item Value Reference Range Interpretation Comments POC-GLUCOSE METER 156 mg/dL 70-110 H TESTED AT [place] [address] ([facility]) (test code = [facility] 1538) [address] T4, [id number] 12:09:00 Test Item Value Reference Range Interpretation Comments FREE T4 ([facility]) (test code = 655) 0.95 ng/dL 0.70-1.48 SEDIMENTATION [id number] 10:04:00 Test Item Value Reference Range Interpretation Comments SEDIMENTATION RATE, ERYTHROCYTE 59 mm/HR 0-20 H ([facility]) (test code = 766) POCT-GLUCOSE [id number] 09:02:00 Test Item Value Reference Range Interpretation Comments POC-GLUCOSE METER 151 mg/dL 70-110 H TESTED AT [facility] 67[facility] ([facility]) (test code = [facility] 1538) [id number] TSH/FREE T4 IF [id number] 07:38:00 Test Item Value Reference Range Interpretation Comments THYROID STIMULATING HORMONE 0.30 uIU/mL 0.35-4.94 L ([facility]) (test code = 772) [id number] 07:36:00 Test Item Value Reference Range Interpretation Comments PHOSPHORUS ([facility]) (test code = 2.5 mg/dL 2.3-4.7 604) [id number] 07:36:00 Test Item Value Reference Range Interpretation Comments MAGNESIUM (BEAKER) (test code = 1.7 mg/dL 1.6-2.6 627) BASIC METABOLIC [id number] 07:36:00 Test Item Value Reference Range Interpretation Comments SODIUM (BEAKER) 136 meq/L 136-145 (test code = 381) POTASSIUM (BEAKER) 4.0 meq/L 3.5-5.1 (test code = 379) CHLORIDE (BEAKER) 104 meq/L 98-107 (test code = 382) CO2 (BEAKER) (test 25 meq/L 22-29 code = 355) BLOOD UREA NITROGEN 8 mg/dL 7-21 (BEAKER) (test code = 354) CREATININE (BEAKER) 0.63 mg/dL 0.57-1.25 (test code = 358) GLUCOSE RANDOM 169 mg/dL 70-105 H (BEAKER) (test code = 652) CALCIUM (BEAKER) 8.5 mg/dL 8.4-10.2 (test code = 697) EGFR (BEAKER) (test 135 mL/min/1.73 ESTIM ATED GFR IS code = 1092) sq m NOT ACCURATE CREATININE CLEARANCE IN PREDICTING GLOMERULAR FILTRATION RATE . ESTIMATED GFR I S NOT APPLICABLE FOR DIALYSIS PATIEN TS. LIPID [id number] 07:36:00 Test Item Value Reference Range Interpretation Comments TRIGLYCERIDES (BEAKER) (test code = 83 mg/dL 540) CHOLESTEROL (BEAKER) (test code = 129 mg/dL 631) HDL CHOLESTEROL (BEAKER) (test code 29 mg/dL = 976) LDL CHOLESTEROL CALCULATED (BEAKER) 83 mg/dL (test code = 633) Triglyceride Reference Range: Low Risk <150 Borderline 150-199 High Risk 200-499 Very High Risk >=500Cholesterol Reference Range: Low Risk <200 Borderline 200-239 High Risk >240HDL Cholesterol Reference Range: Low Risk >=60 High Risk <40LDL Cholesterol Reference Range: Optimal <100 Near Optimal 100-129 Borderline 130-159 High 160-189 Very High >=190HEPATIC FUNCTION [id number] 07:36:00 Test Item Value Reference Range Interpretation Comments TOTAL PROTEIN (BEAKER) (test code = 7.1 gm/dL 6.0-8.3 770) ALBUMIN (BEAKER) (test code = 1145) 3.2 g/dL 3.5-5.0 L BILIRUBIN TOTAL (BEAKER) (test code 1.9 mg/dL 0.2-1.2 H = 377) BILIRUBIN DIRECT (BEAKER) (test 0.7 mg/dL 0.1-0.5 H code = 706) ALKALINE PHOSPHATASE (BEAKER) (test 73 U/L 40-150 code = 346) AST (SGOT) (BEAKER) (test code = 29 U/L 5-34 353) ALT (SGPT) (BEAKER) (test code = 21 U/L 6-55 347) CREATINE KINASE (CK), TOTAL AND [id number] 07:36:00 Test Item Value Reference Range Interpretation Comments CREATINE KINASE TOTAL (BEAKER) 106 U/L 29-200 (test code = 380) CREATINE KINASE-MB (BEAKER) (test 0.8 ng/mL 0.0-6.6 code = 750) CREATINE KINASE-MB INDEX (BEAKER) 0.8 % (test code = 395) CK-MB Reference Range:<6.7 Normal6.7-10.0 Borderline>10.0 AbnormalTROPONIN [id number] 07:31:00 Test Item Value Reference Range Interpretation Comments TROPONIN I (BEAKER) (test code = 397) < ng/mL 0.00-0.03 Troponin I (TnI) levels [...] acute neurological disease, and persistent tachyarrhythmia.BUN AND [id number] 07:26:00 Test Item Value Reference Range Interpretation Comments BLOOD UREA NITROGEN 9 mg/dL 7-21 (BEAKER) (test code = 354) CREATININE (BEAKER) 0.64 mg/dL 0.57-1.25 (test code = 358) EGFR (BEAKER) (test 132 mL/min/1.73 ESTIM ATED GFR IS code = 1092) sq m NOT ACCURATE CREATININE CLEARANCE IN PREDICTING GLOMERULAR FILTRATION RATE . ESTIMATED GFR I S NOT APPLICABLE FOR DIALYSIS PATIEN TS. Specimen slightly ictericCBC W/PLT COUNT & AUTO [id number] 05:54:00 Test Item Value Reference Range Interpretation Comments WHITE BLOOD CELL COUNT (BEAKER) 6.1 K/ L 3.5-10.5 (test code = 775) RED BLOOD CELL COUNT (BEAKER) 4.05 M/ L 4.63-6.08 L (test code = 761) HEMOGLOBIN (BEAKER) (test code = 11.3 GM/DL 13.7-17.5 L 410) HEMATOCRIT (BEAKER) (test code = 35.8 % 40.1-51.0 L 411) MEAN CORPUSCULAR VOLUME (BEAKER) 88.4 fL 79.0-92.2 (test code = 753) MEAN CORPUSCULAR HEMOGLOBIN 27.9 pg 25.7-32.2 (BEAKER) (test code = 751) MEAN CORPUSCULAR HEMOGLOBIN CONC 31.6 GM/DL 32.3-36.5 L (BEAKER) (test code = 752) RED CELL DISTRIBUTION WIDTH 15.8 % 11.6-14.4 H (BEAKER) (test code = 412) PLATELET COUNT (BEAKER) (test code 87 K/CU MM 150-450 L = 756) MEAN PLATELET VOLUME (BEAKER) 12.5 fL 9.4-12.4 H (test code = 754) NUCLEATED RED BLOOD CELLS (BEAKER) 0 /100 WBC 0-0 (test code = 413) NEUTROPHILS RELATIVE PERCENT 64 % (BEAKER) (test code = 429) LYMPHOCYTES RELATIVE PERCENT 21 % (BEAKER) (test code = 430) MONOCYTES RELATIVE PERCENT 13 % (BEAKER) (test code = 431) EOSINOPHILS RELATIVE PERCENT 1 % (BEAKER) (test code = 432) BASOPHILS RELATIVE PERCENT 0 % (BEAKER) (test code = 437) NEUTROPHILS ABSOLUTE COUNT 3.91 K/ L 1.78-5.38 (BEAKER) (test code = 670) LYMPHOCYTES ABSOLUTE COUNT 1.27 K/ L 1.32-3.57 L (BEAKER) (test code = 414) MONOCYTES ABSOLUTE COUNT (BEAKER) 0.78 K/ L 0.30-0.82 (test code = 415) EOSINOPHILS ABSOLUTE COUNT 0.07 K/ L 0.04-0.54 (BEAKER) (test code = 416) BASOPHILS ABSOLUTE COUNT (BEAKER) 0.02 K/ L 0.01-0.08 (test code = 417) IMMATURE GRANULOCYTES-RELATIVE 0 % 0-1 PERCENT (BEAKER) (test code = 2801) CREATINE KINASE (CK), TOTAL AND [id number] 00:32:00 Test Item Value Reference Range Interpretation Comments CREATINE KINASE TOTAL (BEAKER) 113 U/L 29-200 (test code = 380) CREATINE KINASE-MB (BEAKER) (test 1.1 ng/mL 0.0-6.6 code = 750) CREATINE KINASE-MB INDEX (BEAKER) 1.0 % (test code = 395) CK-MB Reference Range:<6.7 Normal6.7-10.0 Borderline>10.0 AbnormalTROPONIN [id number] 00:32:00 Test Item Value Reference Range Interpretation Comments TROPONIN I (BEAKER) (test code = 0.01 ng/mL 0.00-0.03 397) Troponin I (TnI) levels must be interpreted [...] acidosis, acute neurological disease, and persistent tachyarrhythmia.C-REACTIVE [id number] 00:25:00 Test Item Value Reference Range Interpretation Comments C-REACTIVE PROTEIN (BEAKER) (test 3.09 mg/dL 0.00-0.50 H code = 676)
[2020-09-25 19:38] LABS: Absolute Lymphocytes (CBC) 0.8 K/uL (0.7-4.9); Basophils % 0.4 % (0-1.3); Hematocrit 42.6 % (39.6-49.0); Lymphocytes % 10.2 % (15.3-44.8); MPV 10.6 fL (7.6-11.3); RBC Red Blood Cell Count 4.56 M/uL (4.33-5.43)
[2020-09-25 19:42] LABS: Protime INR 1.21
[2020-09-25] MEDS ORDERED: FENTANYL CITR 100 MCG/2 ML ONE (19:50)
[2020-09-25 20:04] LABS: Albumin 2.9 g/dL (3.4-5.0); Bilirubin Total 3.2 mg/dL (0.2-1.0); C-Reactive Protein 78.3 mg/L (<3.00); Potassium 3.2 mmol/L (3.5-5.1); Protein, Total 7.3 g/dL (6.4-8.2)
[2020-09-25] MEDS ORDERED: ACETAMINOPHEN 500 MG TAB ONE (20:06)
[2020-09-25] MEDS ORDERED: NA CHLORIDE 0.9% 1,000 ML ONE ×2 (20:16→23:38)
[2020-09-25] MEDS ORDERED: VANCOMYCIN 1 GM/VIAL ONE (20:30)
[2020-09-25] MEDS ORDERED: NA CHLORIDE 0.9% 2,000 ML ONE (20:30)
[2020-09-25] MEDS ORDERED: PIPERACIL/TAZO 4.5 GM VIAL IV ONE (20:30)
[2020-09-25] MEDS ORDERED: NA CHLORIDE 0.9% 500 ML ONE (20:30)
--- NOTE | 2020-09-25 21:12 | EDPHYS ---
Physician Documentation [facility] Name: Colby Tilley Jr Age: 54 yrs Sex: Male : 1965 Arrival Date: 09/25/2020 Time: 17:24 Bed 2 Private MD: ED Physician Moreno Agee HPI: 09/25 19:00 This 54 yrs old Male presents to ER via Wheelchair with complaints of Back cp Pain, Foot Pain. 19:00 The patient presents with pain that is acute, with no known mechanism of injury. cp 19:00 The symptoms are located in the low back. cp 19:00 Onset: The symptoms/episode began/occurred 4 day(s) ago. cp 19:00 The pain does not radiate. cp 19:03 The patient presents with pain, that is acute, swelling, tenderness, erythema. The cp complaints affect the left foot. 19:03 Onset: The symptoms/episode began/occurred 2 week(s) ago. cp 19:03 Associated signs and symptoms: Pertinent positives: fever, warmth. cp Historical: - Allergies: 17:29 PENICILLINS; ll1 17:29 Aspirin; ll1 17:29 PROPOFOL; ll1 17:29 anesthia; ll1 - PMHx: 17:29 Diabetes - NIDDM; Hypertension; PVD; ll1 - PSHx: 17:29 Gastric Bypass; Knee surgery; ll1 - Immunization history:: Flu vaccine is not up to date. - Social history:: Smoking status: Patient denies any tobacco usage or history of. ROS: 19:05 Constitutional: Negative for fever, poor PO intake. cp 19:05 Eyes: Negative for injury, pain, redness, and discharge. cp 19:05 ENT: Negative for ear pain, sore throat, difficulty swallowing, difficulty handling secretions. 19:05 Cardiovascular: Negative for chest pain, palpitations. 19:05 Respiratory: Negative for cough, shortness of breath, wheezing. 19:05 Abdomen/GI: Negative for abdominal pain, nausea, vomiting, and diarrhea. 19:05 Back: Positive for pain at rest, pain with movement, of the low back area. 19:05 MS/extremity: Positive for erythema, pain, swelling, tenderness, warmth, of the left foot, Negative for injury or acute deformity. 19:05 Neuro: Negative for altered mental status, headache, weakness. 19:05 All other systems are negative. Exam: 19:10 ECG was reviewed by the Attending Physician. cp 19:12 Constitutional: The patient appears in no acute distress, alert, awake, cp non-diaphoretic, non-toxic, well developed, well nourished, obese, uncomfortable. 19:12 Head/Face: Normocephalic, atraumatic. cp 19:12 Eyes: Periorbital structures: appear normal, Conjunctiva: normal, no exudate, no injection, Sclera: no appreciated abnormality, Lids and lashes: appear normal, bilaterally. 19:12 ENT: External ear(s): are unremarkable, Nose: is normal, Posterior pharynx: Airway: no evidence of obstruction, patent. 19:12 Neck: ROM/movement: is normal, is supple, without pain, no range of motions limitations. 19:12 Chest/axilla: Inspection: normal, Palpation: is normal, no crepitus, no tenderness. 19:12 Cardiovascular: Rate: normal, Rhythm: regular, Edema: ankle edema, that is mild, JVD: is not appreciated. 19:12 Respiratory: the patient does not display signs of respiratory distress, Respirations: normal, no use of accessory muscles, no retractions, labored breathing, is not present, Breath sounds: are clear throughout, no decreased breath sounds, no stridor, no wheezing. 19:12 Abdomen/GI: Inspection: obese Bowel sounds: active, all quadrants, Palpation: abdomen is soft and non-tender, in all quadrants, rebound tenderness, is not appreciated, involuntary guarding, is not appreciated. 19:12 Back: pain, that is moderate, of the low back area, ROM is painful, with all movement. 19:12 Musculoskeletal/extremity: Extremities: grossly normal except: noted in the left foot: erythema, pain, swelling, tenderness, mild drainage from open wound of left great toe, Pulses: noted to be 2+ in the right dorsalis pedis artery and left dorsalis pedis artery. 19:12 Neuro: Orientation: to person, place \T\ time. Mentation: is normal, Motor: moves all fours, strength is normal. Vital Signs: 17:24 BP 124 / 103; Pulse 86; Resp 18; Temp 99.8; Pulse Ox 96% ; Weight 208.65 kg; Height 6 ll1 ft. 8 in. (203.20 cm); Pain 9/10; 19:53 BP 100 / 54; Pulse 93; Resp 19; Temp 101.6(O); Pulse Ox 95% on R/A; rv 20:32 BP 94 / 50; Pulse 86; Resp 16; Pulse Ox 96% on R/A; rv 21:20 BP 96 / 59; Pulse 81; Resp 18; Temp 98.5; Pulse Ox 96% on R/A; rv 23:12 BP 110 / 72; Pulse 79; Resp 17; Temp 98.5; Pulse Ox 97% on R/A; rv 17:24 Body Mass Index 50.53 (208.65 kg, 203.20 cm) ll1 MDM: 18:27 Patient medically screened. cp 21:00 Data reviewed: vital signs, nurses notes, lab test result(s), EKG, radiologic studies, cp plain films, and as a result, I will admit patient. 21:00 Counseling: I had a detailed discussion with the patient and/or guardian regarding: the cp historical points, exam findings, and any diagnostic results supporting the discharge/admit diagnosis, lab results, radiology results, the need for further work-up and treatment in the hospital. Physician consultation: Cresencio JOHNSTON was called at 21:00, was contacted at 21:00, regarding admission, to the telemetry unit. patient's condition. 09/25 18:55 Order name: Wound Culture cp 09/25 18:55 Order name: C-Reactive Protein cp 09/25 18:55 Order name: Sed Rate cp 09/25 18:55 Order name: Ptt, Activated cp 09/25 18:55 Order name: Lipase; Complete Time: 20:10 cp 09/25 18:55 Order name: Basic Metabolic Panel; Complete Time: 20:10 cp 09/25 20:40 Interpretation: Normal except: NA 133; K 3.2; CL 96; GLUC 185; CRE 1.48; GFR 50. cp 09/25 18:55 Order name: Blood Culture Adult (2) cp 09/25 18:55 Order name: CBC with Diff; Complete Time: 20:39 cp 09/25 20:40 Interpretation: Normal except: MCV 93.4; PLT 80; RANCHO% 74.4; LYM% 10.2; MN% 14.8. cp 12/28 18:55 Order name: Lactate; Complete Time: 20:10 09/25 18:55 Order name: LFT's; Complete Time: 20:10 09/25 20:40 Interpretation: Normal except: AST 38; BILIT 3.2; BILID 1.0; ALB 2.9; GLOB 4.4; A/G 0.7. 09/25 18:55 Order name: Procalcitonin; Complete Time: 20:41 09/25 20:41 Interpretation: Abnormal: Procalcitonin 1.34. 09/25 18:55 Order name: Protime (+inr); Complete Time: 20:10 09/25 18:55 Order name: Urine Microscopic Only 09/25 18:55 Order name: CK; Complete Time: 20:10 09/25 18:56 Order name: Wound Culture EDMT 09/25 18:56 Order name: C-Reactive Protein; Complete Time: 20:10 EDMT 09/25 18:56 Order name: Sedimentation Rate, Westergren; Complete Time: 20:39 EDMS 09/25 18:56 Order name: PTT, Activated Partial Thromb; Complete Time: 20:10 EDMT 09/25 22:04 Order name: SARS-COV-2 RT PCR; Complete Time: 05:48 EDMS 09/25 23:03 Order name: Lactate Sepsis 2 HR Follow-up; Complete Time: 05:48 EDMS 09/26 01:23 Order name: Troponin I; Complete Time: 05:48 EDMS 09/26 03:11 Order name: Urine Dipstick--Ancillary (enter results) [facility] 09/26 03:29 Order name: Lactate; Complete Time: 05:48 EDMS 09/26 03:50 Order name: Urine Dipstick-Ancillary; Complete Time: 05:48 EDMS 09/26 05:32 Order name: Basic Metabolic Panel; Complete Time: 05:48 EDMS 09/26 05:32 Order name: Magnesium; Complete Time: 05:48 EDMS 09/26 05:44 Order name: CBC with Automated Diff EDMT 09/26 05:54 Order name: Lactate sg 09/26 06:50 Order name: Hemoglobin A1c EDMT 09/25 18:55 Order name: XRAY Foot LEFT 3 View; Complete Time: 21:46 09/25 18:55 Order name: Chest Single View XRAY; Complete Time: 21:46 cp 09/25 18:55 Order name: Cardiac monitoring; Complete Time: 19:25 cp 09/25 18:55 Order name: EKG - Nurse/Tech; Complete Time: 19:10 cp 09/25 18:55 Order name: IV Saline Lock - Large Bore; Complete Time: 19:25 cp 09/25 18:55 Order name: Labs collected and sent; Complete Time: 19:25 cp 09/25 18:55 Order name: O2 Per Protocol; Complete Time: 19:25 cp 09/25 18:55 Order name: O2 Sat Monitoring; Complete Time: 19:31 cp 09/25 18:55 Order name: Urine Dipstick-Ancillary (obtain specimen); Complete Time: 03:07 09/26 05:54 Order name: Labs - recollect needed: REPEAT LACTATE (HLD ORDER) sg EC:10 Rate is 88 beats/min. Rhythm is regular. SC interval is normal. QRS interval is cp prolonged at 102 msec. QT interval is normal. T waves are Inverted in lead aVR. Administered Medications: Discontinued: Zosyn 4.5 grams IVPB once over 60 mins; (mix in 100 mL NS) 19:38 Drug: fentaNYL (PF) 25 mcg Route: IVP; Site: left antecubital; rv 20:33 Follow up: Response: No adverse reaction; Pain is unchanged, physician notified; RASS: rv Alert and Calm (0) 19:53 Drug: Tylenol 1000 mg Route: PO; rv 21:20 Follow up: BP 96 / 59; Pulse 81 bpm; Resp 18 bpm; Temp 98.5; Pulse Ox 96% RA; Response: rv Temperature is decreased 19:59 Drug: NS 0.9% 1000 ml Route: IV; Rate: 1 bolus; Site: left antecubital; rv 20:33 Follow up: IV Status: Completed infusion; IV Intake: 1000ml rv 20:13 Drug: Zosyn 4.5 grams Route: IVPB; Infused Over: 60 mins; Site: left antecubital; rv 21:19 Follow up: IV Status: Order to discontinue infusion rv 20:15 Drug: NS 0.9% 1000 ml Route: IV; Rate: 1 bolus; Site: left antecubital; rv 21:19 Follow up: IV Status: Completed infusion; IV Intake: 1000ml rv 20:32 Drug: fentaNYL (PF) 25 mcg {Note: rass 0.} Route: IVP; Site: right antecubital; rv 21:20 Follow up: Response: No adverse reaction; Marked relief of symptoms; Pain is decreased; rv RASS: Alert and Calm (0) 20:32 Drug: NS 0.9% 1000 ml Route: IV; Rate: 1 bolus; Site: right hand; rv 21:19 Follow up: IV Status: Completed infusion; IV Intake: 1000ml rv 20:52 Drug: vancoMYCIN 1.5 grams Route: IVPB; Rate: calculated rate; Site: right hand; rv 23:13 Follow up: IV Status: Completed infusion; IV Intake: 250ml rv Disposition: 09/27 06:47 Co-signature as Attending Physician, Moreno Agee MD I agree with the assessment and namrata plan of care. Disposition: 09/25/20 21:12 Hospitalization ordered by Jj Nobles for Inpatient Admission. Preliminary diagnosis are Cellulitis of left lower limb, Other sepsis. - Bed requested for Telemetry/MedSurg (Inpatient). - Status is Inpatient Admission. sv - Condition is Stable. - Problem is new. - Symptoms have improved. Signatures: Dispatcher [employer] EDMS Swathi Berry RN RN sv Gay, Steven, RN RN sg Anderson, Corey, MD MD cha Attema, Lee, DESIGN TECHNOLOGY PROFESSOR-C DESIGN TECHNOLOGY PROFESSOR-Cla1 Moreno Solo PA PA cp Christen Rahman RN RN cg Gaurav Quintanilla RN RN rv Yajaira Arevalo RN RN ll1 Corrections: (The following items were deleted from the chart) 09/25 19:05 19:00 The patient presents with pain that is chronic, cp cp 20:46 20:42 Abdomen Pelvis W Con+CT.RAD.BRZ ordered. EDMS EDMS 21:04 20:51 CORONAVIRUS+MR.LAB.BRZ ordered. EDMS EDMS 22:45 21:12 Hospitalization Ordered by Jj Nobles for Inpatient Admission. Preliminary cg diagnosis is Cellulitis of left lower limb; Other sepsis. Bed requested for Telemetry/MedSurg (Inpatient). Status is Inpatient Admission. Condition is Stable. Problem is new. Symptoms have improved. cp 09/26 01:01 09/25 22:45 09/25/2020 21:12 Hospitalization Ordered by Jj Nobles for Inpatient cg Admission. Preliminary diagnosis is Cellulitis of left lower limb; Other sepsis. Bed requested for [facility] ER HOLD. Status is Inpatient Admission. Condition is Stable. Problem is new. Symptoms have improved. 09/26 03:06 09/25 20:55 Data reviewed: vital signs, nurses notes, lab test result(s), EKG, cp radiologic studies, plain films, cp 09/26 06:29 01:01 09/25/2020 21:12 Hospitalization Ordered by Jj Nobles for Inpatient cg Admission. Preliminary diagnosis is Cellulitis of left lower limb; Other sepsis. Bed requested for [facility] ER HOLD. Status is Inpatient Admission. Condition is Stable. Problem is new. Symptoms have improved. 07:42 06:29 09/25/2020 21:12 Hospitalization Ordered by Jj Nobles for Inpatient sv Admission. Preliminary diagnosis is Cellulitis of left lower limb; Other sepsis. Bed requested for Telemetry/MedSurg (Inpatient). Status is Inpatient Admission. Condition is Stable. Problem is new. Symptoms have improved.
--- NOTE | 2020-09-25 21:12 | ER ---
Nurse's Notes [facility] Name: Colby Tilley Jr Age: 54 yrs Sex: Male : 1965 Arrival Date: 09/25/2020 Time: 17:24 Bed 2 Private MD: Diagnosis: Cellulitis of left lower limb;Other sepsis Presentation: 09/25 17:24 Chief complaint: Patient states: Low back pain for 4 days. Left foot 1st toe infection ll1 for 14 months, worse for 2 weeks. Had fever today so he couldn't see the block inspector today. Site is oozing blood per patient. 2 open wounds to L lateral 1st toe, redness enveloping half his foot. + chills, SOB at times. Coronavirus screen: Client denies travel out of the [place] in the last 14 days. chills, difficulty breathing, fatigue, fever, shaking with chills, shortness of breath, Client presents with at least one sign or symptom that may indicate coronavirus-19. Standard/surgical mask placed on the client. Ebola Screen: Patient denies travel to an Ebola-affected area in the 21 days before illness onset. Initial Sepsis Screen: Does the patient meet any 2 criteria? No. Patient's initial sepsis screen is negative. Does the patient have a suspected source of infection? Yes: Skin breakdown/wound. Risk Assessment: Do you want to hurt yourself or someone else? Patient reports no desire to harm self or others. Onset of symptoms was September 21, 2020. 17:24 Method Of Arrival: Wheelchair ll1 17:24 Acuity: ZENAIDA 2 ll1 Triage Assessment: 19:27 General: Appears ill, Behavior is calm, cooperative. Pain: Complains of pain in left rv leg. Neuro: Level of Consciousness is awake, alert, obeys commands, Oriented to person, place, time, situation. Cardiovascular: Patient's skin is warm and dry. Rhythm is sinus rhythm. Respiratory: Airway is patent Respiratory effort is even, unlabored, Respiratory pattern is regular, Breath sounds are clear bilaterally. Derm: Wound noted left foot Wound is infected, with greenish dishcarge, pain and reddish in appearance. Musculoskeletal: Swelling present in left foot. Historical: - Allergies: 17:29 PENICILLINS; ll1 17:29 Aspirin; ll1 17:29 PROPOFOL; ll1 17:29 anesthia; ll1 - PMHx: 17:29 Diabetes - NIDDM; Hypertension; PVD; ll1 - PSHx: 17:29 Gastric Bypass; Knee surgery; ll1 - Immunization history:: Flu vaccine is not up to date. - Social history:: Smoking status: Patient denies any tobacco usage or history of. Screenin:26 Abuse screen: Denies threats or abuse. Denies injuries from another. Nutritional rv screening: No deficits noted. Tuberculosis screening: No symptoms or risk factors identified. Fall Risk None identified. Assessment: 20:33 Reassessment: MK SOLO, TALKED TO THE PATIENT AND EXPLAINED THE TEST RESULTS AND PLAN rv OF CARE. PATIENT AGREED TO BE ADMITTED. Vital Signs: 17:24 BP 124 / 103; Pulse 86; Resp 18; Temp 99.8; Pulse Ox 96% ; Weight 208.65 kg; Height 6 ll1 ft. 8 in. (203.20 cm); Pain 9/10; 19:53 BP 100 / 54; Pulse 93; Resp 19; Temp 101.6(O); Pulse Ox 95% on R/A; rv 20:32 BP 94 / 50; Pulse 86; Resp 16; Pulse Ox 96% on R/A; rv 21:20 BP 96 / 59; Pulse 81; Resp 18; Temp 98.5; Pulse Ox 96% on R/A; rv 23:12 BP 110 / 72; Pulse 79; Resp 17; Temp 98.5; Pulse Ox 97% on R/A; rv 17:24 Body Mass Index 50.53 (208.65 kg, 203.20 cm) 1 ED Course: 17:24 Patient arrived in ED. ll1 17:28 Triage completed. ll1 17:29 Arm band placed on. ll1 18:25 Mk Solo PA is PHCP. cp 18:25 Simeon Lanza MD is Attending Physician. cp 19:17 Wound culture swab sent to lab. rv 19:22 Inserted saline lock: 18 gauge in left antecubital area, using aseptic technique. Blood rv collected. 19:22 Initial lab(s) drawn, by ga, sent to lab. First set of blood cultures drawn. rv 19:25 Gaurav Quintanilla, VIRI is Primary Nurse. rv 19:27 Patient has correct armband on for positive identification. Placed in gown. Bed in low rv position. Call light in reach. Side rails up X 1. lunchroom monitor on. Pulse ox on. NIBP on. 19:54 Mk Agee MD is Attending Physician. cp 19:59 XRAY Foot LEFT 3 View In Process Unspecified. EDMS 19:59 Chest Single View XRAY In Process Unspecified. EDMS 20:32 Inserted saline lock: 20 gauge in right hand, using aseptic technique. rv 21:07 COVID swab sent to lab. sg 21:11 Jj Nobles is Hospitalizing Provider. cp 23:12 No provider procedures requiring assistance completed. IV is patent, with fluids rv infusing freely, Patient admitted, IV remains in place. Administered Medications: Discontinued: Zosyn 4.5 grams IVPB once over 60 mins; (mix in 100 mL NS) 19:38 Drug: fentaNYL (PF) 25 mcg Route: IVP; Site: left antecubital; rv 20:33 Follow up: Response: No adverse reaction; Pain is unchanged, physician notified; RASS: rv Alert and Calm (0) 19:53 Drug: Tylenol 1000 mg Route: PO; rv 21:20 Follow up: BP 96 / 59; Pulse 81 bpm; Resp 18 bpm; Temp 98.5; Pulse Ox 96% RA; Response: rv Temperature is decreased 19:59 Drug: NS 0.9% 1000 ml Route: IV; Rate: 1 bolus; Site: left antecubital; rv 20:33 Follow up: IV Status: Completed infusion; IV Intake: 1000ml rv 20:13 Drug: Zosyn 4.5 grams Route: IVPB; Infused Over: 60 mins; Site: left antecubital; rv 21:19 Follow up: IV Status: Order to discontinue infusion rv 20:15 Drug: NS 0.9% 1000 ml Route: IV; Rate: 1 bolus; Site: left antecubital; rv 21:19 Follow up: IV Status: Completed infusion; IV Intake: 1000ml rv 20:32 Drug: fentaNYL (PF) 25 mcg {Note: rass 0.} Route: IVP; Site: right antecubital; rv 21:20 Follow up: Response: No adverse reaction; Marked relief of symptoms; Pain is decreased; rv RASS: Alert and Calm (0) 20:32 Drug: NS 0.9% 1000 ml Route: IV; Rate: 1 bolus; Site: right hand; rv 21:19 Follow up: IV Status: Completed infusion; IV Intake: 1000ml rv 20:52 Drug: vancoMYCIN 1.5 grams Route: IVPB; Rate: calculated rate; Site: right hand; rv 23:13 Follow up: IV Status: Completed infusion; IV Intake: 250ml rv Intake: 20:33 IV: 1000ml; Total: 1000ml. rv 21:19 IV: 1000ml; Total: 2000ml. rv 21:19 IV: 1000ml; Total: 3000ml. rv 23:13 IV: 250ml; Total: 3250ml. rv Outcome: 21:12 Decision to Hospitalize by Provider. cp 23:12 Admitted to ER Hold. Please see [facility] for further documentation. rv 23:12 Condition: good 23:12 Instructed on the need for admit. 09/26 07:42 Patient left the ED. sv Signatures: Dispatcher [employer] Swathi Obrien RN RN sv Favio Garland RN Mk Zuniga PA PA cp Gaurav Quintanilla RN RN rv Yajaira Arevalo RN RN ll1 Corrections: (The following items were deleted from the chart) 09/25 17:33 17:24 Acuity: ZENAIDA 3 ll1 ll1 17:42 17:24 Chief complaint: Patient states: Low back pain for 4 days. Left foot 1st toe ll1 infection for 14 months, had fever today so he couldn't see the block inspector today. Site is oozing blood. + chills, SOB at times. ll1
--- NOTE | 2020-09-25 21:32 | RAD REPORT ---
EXAM DESCRIPTION: RAD - Chest Single View - 09/25/2020 7:59 pm CLINICAL HISTORY: back pain COMPARISON: April 2018 portable study TECHNIQUE: AP portable chest image was obtained 09/25/2020 7:59 pm . FINDINGS: No peripheral mass consolidation. Interstitial pattern is similar or less prominent than s een on comparison. No significant failure or volume overload. Shallow inspiration, portable technique and large body habitus accentuate chest, vascular and lung markings. Heart and vasculature are lucero l. No measurable pleural effusion and no pneumothorax. No acute bony abnormality seen. No acute aorti c findings suspected. IMPRESSION: No acute cardiopulmonary process. No significant change from comparison.
--- NOTE | 2020-09-25 21:34 | RAD REPORT ---
EXAM DESCRIPTION: RAD - Foot Left 3 View - 09/25/2020 7:59 pm CLINICAL HISTORY: PAIN, nontraumatic COMPARISON: Foot Left 2 View dated 11/07/2015 FINDINGS: No fracture, dislocation or periosteal reaction. No acute or destructive bony process. Sm all plantar and Achilles spurs are present. No air or foreign body in the soft tissues. IMPRESSION: Negative left foot examination for acute bone or joint finding.
--- NOTE | 2020-09-25 22:24 | P.HP ---
Certification for Inpatient Patient admitted to: Inpatient With expected LOS: >2 Midnights Patient will require the following post-hospital care: None Practitioner: I am a practitioner with admitting privileges, knowledge of patient current condition, hospital course, and medical plan of care. Services: Services provided to patient in accordance with Admission requirements found in Title 42 Section 412.3 of the Code of Federal Regulations <Cresencio Hagen - Last Filed: 09/25/20 22:20> Patient History Date of Service: 09/25/20 Primary Care Provider: None Reason for admission: Sepsis, diabetic foot wound History of Present Illness: 54-year-old male with history of hypertension, diabetes mellitus type 2, peripheral vascular disease presents to the emergency department for infected wound to the left great toe. Patient reports that he has had ongoing problems with his left great toe for 14 months for which she has been seeing podiatry for. Patient reports that on Friday his foot began becoming more painful, red, swollen. Patient presented to the emergency department for evaluation, patient was febrile to 101.6, blood pressure was as low as 90/50. Initial lactate 3.0 pro calcitonin 1.34 sodium 133 potassium 3.2, creatinine 1.48 GFR 50 white blood cell count 8.2 with some left shift, x-ray of the left foot negative for any acute findings. Impressive cellulitis to the left foot and great toe. Patient's blood pressure did improve with sepsis fluids given in the emergency department, patient was started on broad-spectrum IV antibiotics in the emergency department. ED provider wishes to admit patient for further evaluation and management. When I saw the patient in the ER he was awake, alert, oriented x3. Blood pressure was around 100 systolic with heart rate around 80. Patient meets criteria for sepsis without severe sepsis or septic shock at this time. Will admit for further evaluation and management. - Past Medical/Surgical History Diabetic: Yes -: Hypertension -: Peripheral vascular disease -: Diabetes mellitus type 2 -: Morbid obesity -: Hyperlipidemia -: Depression -: Obstructive sleep apnea -: Cirrhosis -: Diabetic neuropathy -: Venous insufficiency -: Gastric bypass -: Bilateral knee surgery -: "venous reflux" had small veins closed "years ago" Psychosocial/ Personal History: The patient lives with his brother. He has no children. He is disabled. - Family History Father -: Hypertension, Stroke - Social History Alcohol use: No CD- Drugs: No Caffeine use: No Place of Residence: Home <Maria Del CarmenanastasiaCresencio - Last Filed: 09/25/20 22:20> Date of Service: 09/26/20 <samir castro - Last Filed: 09/26/20 15:18> Allergies ciprofloxacin Allergy (Unknown, Verified 10/09/18 11:26) Hives/Rash Penicillins Adverse Reaction (Mild, Verified 10/09/18 11:26) Shortness of breath aspirin Adverse Reaction (Unknown, Verified 10/09/18 11:26) Shortness of breath propofol Adverse Reaction (Verified 10/09/18 11:26) over sedation symptoms,hard to wake up flu vaccine Adverse Reaction (Uncoded 10/09/18 11:26) extreme sore throat, chronic cough Home Medications: Amitriptyline HCl 100 mg PO DAILY 09/26/20 Cyclobenzaprine [Flexeril*] 20 mg PO BID 09/26/20 Empagliflozin [Jardiance] 25 mg PO DAILY 09/26/20 Ergocalciferol (Vitamin D2) [Vitamin D2] 1.25 mg PO SEECOM 09/26/20 Glimepiride [Amaryl*] 2 mg PO DAILY 09/26/20 Lactulose 10 gm PO BID 09/26/20 Metformin HCl 1,000 mg PO BID 09/26/20 Multivitamin 2 tab PO DAILY 09/26/20 PARoxetine HCL [Paroxetine HCl] 20 mg PO DAILY 09/26/20 Potassium Chloride 1 tab PO DAILYPRN PRN 09/26/20 hydroCHLOROthiazide [Hydrochlorothiazide*] 12.5 mg PO DAILY 09/26/20 Review of Systems 10-point ROS is otherwise unremarkable General: Fever, Chills, Weakness, Malaise Musculoskeletal: Foot Pain <Cresencio Hagen - Last Filed: 09/25/20 22:20> Physical Examination - Physical Exam General: Alert, In no apparent distress HEENT: Atraumatic, PERRLA, Other (Mucous membranes dry) Neck: Supple, 2+ carotid pulse no bruit, No LAD Respiratory: Clear to auscultation bilaterally, Normal air movement Cardiovascular: Regular rate/rhythm, Normal S1 S2 Gastrointestinal: Normal bowel sounds, No tenderness Musculoskeletal: Erythema, Tenderness, Warmth (Left lower extremity) Integumentary: Tenderness/swelling, Erythema, Warmth, Diabetic ulcer (Medial aspect of left great toe) Neurological: Normal gait, Normal speech, Normal strength at 5/5 x4 extr, Normal tone, Normal affect - Studies Laboratory Data (last 24 hrs) 09/25/20 19:22: PT 14.2 H, INR 1.21, APTT 26.7 09/25/20 19:22: WBC 8.2, Hgb 13.9, Hct 42.6, Plt Count 80 L 09/25/20 19:22: Sodium 133 L, Potassium 3.2 L, BUN 16, Creatinine 1.48 H, Glucose 185 H, Total Bilirubin 3.2 H, AST 38 H, ALT 43, Alkaline Phosphatase 74, Lipase 142 <Cresencio Hagen - Last Filed: 09/25/20 22:20> - Studies Laboratory Data (last 24 hrs) 09/25/20 19:22: PT 14.2 H, INR 1.21, APTT 26.7 09/25/20 19:22: WBC 8.2, Hgb 13.9, Hct 42.6, Plt Count 80 L 09/25/20 19:22: Sodium 133 L, Potassium 3.2 L, BUN 16, Creatinine 1.48 H, Glucose 185 H, Total Bilirubin 3.2 H, AST 38 H, ALT 43, Alkaline Phosphatase 74, Lipase 142 Microbiology Data (last 24 hrs): 09/25/20 19:22 Wound - Left Foot Gram Stain - Final <samir castro - Last Filed: 09/26/20 15:18> Assessment and Plan - Plan Assessment Sepsis without severe sepsis or septic shock secondary to diabetic foot wound with surrounding cellulitis to the left foot Diabetes mellitus type 2 Hypertension Peripheral vascular disease Thrombocytopenia Plan Sepsis without severe sepsis or septic shock secondary to diabetic foot wound with surrounding cellulitis to the left foot: Patient given sepsis fluid bolus on broad-spectrum antibiotics in the emergency department, continue to trend lactate levels, IV fluids overnight. Some mild acute kidney injury noted, continue IV fluids. Will consult general surgery for evaluation with possible debridement. DVT prophylaxis with SCDs as patient has platelet count of 80. Diabetes mellitus type 2: A.c. HS Accu-Cheks, sliding scale insulin therapy. A1c with morning labs. Hypertension: Obtain and continue home medications Peripheral vascular disease: Stable at this time. Thrombocytopenia: Patient reports he has a history of low platelet counts for which she is eventually supposed to see hematology. Discharge Plan: Home Plan to discharge in: 72 Hours - Advance Directives Does patient have a Living Will: No Does patient have a Durable POA for Healthcare: No - Code Status/Comfort Care Code Status Assessed: Yes (Full code) Critical Care: No Time Spent Managing Pts Care (In Minutes): 55 <Cresencio Hagen - Last Filed: 09/25/20 22:20> Physician Review: Patient Assessed, Agree with Above Assessment and Plan Physician Review Additional Text: Sepsis Diabetic foot ulcer. PVD IV antibiotics General surgery consult. Obtain arterial Doppler of both lower extremities. No evidence of osteomyelitis on the x-ray. <samir castro - Last Filed: 09/26/20 15:18>
[2020-09-25] MEDS: NA CHLORIDE 0.9% 1,000 ML IV SCH (23:17)
[2020-09-25] MEDS ORDERED: ACETAMINOPHEN 500 MG TAB PO PRN (23:17)
[2020-09-25] MEDS: Levofloxacin500mg IV 500 MG/100 ML BAG IV SCH (23:17)
[2020-09-25] MEDS ORDERED: ONDANSETRON 4 MG/2 ML VIAL IV PRN (23:17)
[2020-09-25] MEDS ORDERED: Levofloxacin500mg IV 500 MG/100 ML BAG IV ONE (23:38)
[2020-09-26] MEDS: MORPHINE 2 MG/ML SYR IV PRN ×3 (01:10→21:04)
[2020-09-26] MEDS ORDERED: ACETAMINOPHEN 500 MG TAB ONE ×2 (01:11→07:51)
[2020-09-26] MEDS ORDERED: VANCOMYCIN 2 GM in NA CHLORIDE 0.9% 500 ML IVPB SCH (02:00)
[2020-09-26] MEDS ORDERED: NA CHLORIDE 0.9% 250 ML ONE (02:32)
[2020-09-26] MEDS ORDERED: VANCOMYCIN 1 GM/VIAL ONE ×2 (02:32→02:41)
[2020-09-26 03:49] LABS: Urine Blood NEGATIVE (NEG); Urine Glucose 1+ (NEG); Urine Protein 2+ (NEG); Urine Specific Gravity 1.025 (1.005-1.030); Urine pH 5.5 (5.0-7.0)
[2020-09-26 05:31] LABS: Magnesium 1.9 mg/dL (1.8-2.4); Potassium 3.4 mmol/L (3.5-5.1)
[2020-09-26 05:39] LABS: Absolute Lymphocytes (CBC) 0.8 K/uL (0.7-4.9); Basophils % 0.5 % (0-1.3); Hematocrit 38.5 % (39.6-49.0); Lymphocytes % 11.7 % (15.3-44.8); RBC Red Blood Cell Count 4.13 M/uL (4.33-5.43)
--- NOTE | 2020-09-26 05:51 | P.INFCA ---
Sepsis Focused Assessment - Focused Assessment Complete? Sepsis Focused Assessment Completed?: Yes - Sepsis Screen Result Severe Sepsis: Negative Septic Shock: Negative - Evaluation Current stage of sepsis: Ruled out Reason for ruling out sepsis: Vitals stable - Vital Signs Reviewed: Yes Respiratory Rate: 20 O2 Sat by Pulse Oximetry: 99 - Examination Date exam was performed: 09/26/20 Time exam was performed: 01:00 Heart: Regular rate/rhythm Lungs: Clear bilaterally Peripheral pulses: 3+ Normal Peripheral pulse location: Radial Capillary refill: <2 Seconds Skin examination: Normal turgor
[2020-09-26] MEDS: INSULIN -REGULAR HUMAN 50 UNIT/0.5 ML ML SQ SCH ×4 (07:30→21:07)
[2020-09-26] MEDS ORDERED: INFLUENZA VACCINE (for 3y+) 0.5 ML DOSE IMVAC ONE (08:00)
[2020-09-26] MEDS: NA CHLORIDE 0.9% 1,000 ML IV SCH ×2 (08:13→15:24)
[2020-09-26] MEDS ORDERED: VANCOMYCIN 1 GM in NA CHLORIDE 0.9% 500 ML IVPB SCH (09:00)
[2020-09-26 09:17] LABS: Blood Morphology Comment NOT SEEN (NOT SEEN); Platelet Estimate DECR
[2020-09-26] MEDS ORDERED: CEFAZOLIN/SWI 1gm 1 GM/10 ML SYR ONE (10:23)
[2020-09-26] MEDS ORDERED: COLLAGENASE 30 GM OINTMENT TOP ONE (10:37)
[2020-09-26] MEDS ORDERED: LIDOCAINE 2% MPF 5 ML VIAL ONE (10:51)
[2020-09-26] MEDS ORDERED: propofoL 200 MG/20 ML VIAL IV ONE (10:51)
--- NOTE | 2020-09-26 10:58 | PREOPCON ---
Date of Consultation: 09/25/2020 Reason For Consultation: Infection in left great toe. History Of Present Illness: Patient is a 54-year-old gentleman, who came to the emergency room with approximately 4-5 days history of increasing redness, pain, swelling in his left great toe. He has b een seeing a inventory auditor for the last 14 months, however, over the holiday weekend, it became worse. He was febrile and he came to the ER, was evaluated. He had hypertension, and his lactic acid and pr ocalcitonin were elevated. Sepsis protocol was followed. He was admitted and I was consulted. He i s awake and alert. Currently denies any fever or chills. Minimal drainage, open wounds, two places on the left great toe. Denies any insect bites. No sore throat, runny nose, cough, headaches, or di zziness. No chest pain. Review of Systems: Otherwise unremarkable. Past Medical History: Significant for morbid obesity, hypertension, peripheral vascular disease, santos betes, hyperlipidemia, obstructive sleep apnea, depression, cirrhosis, diabetic neuropathy, and venou s insufficiency. Past Surgical History: Bilateral knee surgery, venous reflux surgery, and gastric bypass. Allergies: REVIEWED, INCLUDE CIPRO, PENICILLIN, ASPIRIN, PROPOFOL, FLU VACCINE. Social History: The patient does not smoke or drink. Family History: Significant for hypertension, stroke. Physical Examination: Vital Signs: His vitals are stable. His current temperature is 100.1. General: He is awake, alert. Head and Neck: Cranial nerves 2 through 12 are grossly within normal limits. No neck masses. No JV D. Throat clear. Neck is supple. Chest: Clear. Heart: S1 and S2. Abdomen: Soft. Extremities: Palpable dorsalis pedis and posterior tibial pulses. Diminished in the left great toe. Extending to the medial aspect of the foot and toward the low part of the leg, there is erythema, w armth, and edema. On the dorsal and medial aspect of the toe, there are 2 wounds that are necrotic, which appears to be probably a small purulent pocket present, tender. Laboratory Data: White count is 7.1, H and H are 12.7 and 38.5, platelets are low at 62. His neutro nery percentage is normal. His INR is normal, 1.21. Chemistry reviewed. His lactic acid is 2.5 and his procalcitonin was 1.34. X-ray does not show any evidence of osteo. Assessment: Left great toe diabetic foot infection. Recommendations: IV fluids, IV antibiotics, medical management for his diabetes and then, the incisi on, drainage, and debridement of left great toe diabetic infection. Patient understands the risks, b enefits, and alternatives and agrees to procedure. /MODL Voice ID: [id number] Report ID: [id number]
--- NOTE | 2020-09-26 11:26 | P.OP ---
Head Setter: NONE,NONE Preoperative diagnosis: Left Great Toe Diabetic Infection Postoperative diagnosis: Same Primary procedure: I and D and Debridement Left Great Toe Infection Anesthesia: General Estimated blood loss: min Specimen: Pus and necrotic tissue Findings: as above Complications: None Transferred to: Recovery Room Condition: Good
[2020-09-26] MEDS ORDERED: CHLORHEXIDINE GLUCO 4% 120 ML TOP SCH (12:00)
--- NOTE | 2020-09-26 12:04 | OP ---
Date of Procedure: 09/26/2020 Surgeon: Gerardo Gatica MD Home Health Care Case Manager: None. Preoperative Diagnosis: Left great toe diabetic infection. Postoperative Diagnosis: Left great toe diabetic infection. Procedure: Incision, drainage and debridement of the left great toe diabetic infection. Estimated Blood Loss: Minimal. Specimens: Pus and necrotic tissue. Finding: As above. Anesthesia: General. Complications: None. Disposition: The patient tolerated the procedure in stable condition and taken to Recovery in good g eneral condition. Procedure In Detail: The patient was brought to the OR and placed in supine position. General anest hesia was begun. The patient was prepped and draped in usual sterile fashion. Then, Marcaine 0.5% w as infiltrated in a field block fashion. Then, 15 blade was used to excise the necrotic tissue on th e dorsum of the toe as well as the medial aspect of the toe. There was pus under pressure that was e ncountered. Cultures were done. Necrotic tissue was debrided with sharp dissection as well as a cur ette until good healthy tissue was obtained. There was some fibrin present in between some granulati on tissue on the medial and plantar aspect of the toe, which were debrided with a curette. Wound irr igated. Bleeding controlled with cautery. Then collagenase, wet-to-dry dressing change was applied. The patient tolerated the procedure in stable condition, taken to Recovery in good general condition. /MODL Voice ID: [id number] Report ID: [id number]
[2020-09-26] MEDS ORDERED: POTASSIUM CL SA 10 MEQ TAB PO ONE (12:15)
[2020-09-26] MEDS: VANCOMYCIN 2 GM in NA CHLORIDE 0.9% 500 ML IVPB SCH (15:08)
--- NOTE | 2020-09-26 15:23 | P.PN ---
Subjective Date of Service: 09/26/20 Primary Care Provider: None Chief Complaint: Sepsis, diabetic foot wound Status post I and D and debridement by Dr. Gatica. Patient has been afebrile. Physical Examination - Vital Signs Temperature: 96.4 F Blood Pressure: 140/66 Pulse: 76 Respirations: 18 Pulse Ox (%): 95 - Physical Exam General: Alert, In no apparent distress HEENT: Mucous membr. moist/pink Neck: Supple Respiratory: Clear to auscultation bilaterally, Normal air movement Cardiovascular: No edema, Regular rate/rhythm, Normal S1 S2 Gastrointestinal: Soft and benign, Non-distended, No tenderness Musculoskeletal: Other (Left foot wound dressed.) Neurological: Normal speech, Normal strength at 5/5 x4 extr - Studies Laboratory Data (last 24 hrs) 09/25/20 19:22: PT 14.2 H, INR 1.21, APTT 26.7 09/25/20 19:22: WBC 8.2, Hgb 13.9, Hct 42.6, Plt Count 80 L 09/25/20 19:22: Sodium 133 L, Potassium 3.2 L, BUN 16, Creatinine 1.48 H, Glucose 185 H, Total Bilirubin 3.2 H, AST 38 H, ALT 43, Alkaline Phosphatase 74, Lipase 142 Microbiology Data (last 24 hrs): 09/25/20 19:22 Wound - Left Foot Gram Stain - Final Assessment And Plan - Current Problems (Diagnosis) (1) Diabetic foot ulcer Current Visit: Yes Status: Acute (2) Morbid obesity with BMI of 60.0-69.9, adult Onset Date: 11/19/16 Current Visit: No Status: Acute (3) Severe sepsis Onset Date: 05/07/18 Current Visit: No Status: Acute (4) Type 2 diabetes mellitus Onset Date: 11/19/16 Current Visit: No Status: Acute (5) Peripheral vascular disease Current Visit: Yes Status: Acute (6) Thrombocytopenia Onset Date: 05/07/18 Current Visit: No Status: Acute (7) Acute renal failure Onset Date: 05/07/18 Current Visit: No Status: Acute - Plan Status post I and debridement. Continue IV antibiotics Follow cultures Aggressive blood sugar control with Lantus insulin and insulin sliding scale. YULIA resolved. IV fluid. Wound care per general surgery Dr. Gatica is following. Arterial Doppler of bilateral lower extremities is pending. Physician Review: Patient Assessed, Agree with Above Assessment and Plan Physician Review Additional Text: Sepsis Diabetic foot ulcer. PVD IV antibiotics General surgery consult. Obtain arterial Doppler of both lower extremities. No evidence of osteomyelitis on the x-ray.
[2020-09-26] MEDS ORDERED: POTASSIUM CL SA 10 MEQ TAB PO PRN (15:25)
--- NOTE | 2020-09-26 16:07 | EKG ---
Test Date: 2020-09-25 Test Time: 19:03:54 Liner Worker: TONO MEASUREMENT RESULTS: Intervals: Rate: 88 [place]: 164 QRSD: 102 QT: 362 QTc: 438 M[place]: P: 38 [place]: 164 QRS: 12 T: 97 INTERPRETIVE STATEMENTS: Sinus rhythm with frequent premature ventricular complexes Nonspecific ST and T wave abnormality Abnormal ECG Compared to ECG 05/06/2018 09:07:56 Sinus tachycardia no longer present Possible ischemia no longer present ST (T wave) deviation still present Electronically Signed On 09-26-20 16:05:33 COIN MACHINE SERVICE REPAIRER by Josef Chanel
--- NOTE | 2020-09-26 20:30 | RAD REPORT ---
EXAM DESCRIPTION: US - Lower Extremity Arterial Bilat - 09/26/2020 7:35 pm CLINICAL HISTORY: Leg pain/peripheral vascular disease with nonhealing ulcer COMPARISON: None FINDINGS: The right common femoral, superficial femoral, popliteal, posterior tibial and dorsalis pedis arterie s demonstrate triphasic waveforms The left common femoral, superficial femoral and popliteal arteries demonstrate triphasic waveforms The left posterior tibial and dorsalis pedis arteries demonstrate monophasic waveforms. Right toe index 1, left toe index 1 1.3 centimeter right Nguyễn's cyst IMPRESSION: Mild disease involving the distal arteries left lower extremity Unremarkable evaluation of the right lower extremity arteries
[2020-09-26] MEDS ORDERED: HOME MED 1 EA UNK (Lactulose [Lactulose] 10 GM/15 ML Solution) PO SCH (21:00)
[2020-09-26] MEDS: CYCLOBENZAPRINE 10 MG TAB PO SCH (21:06)
[2020-09-26] MEDS: LACTULOSE 20 GM/30 ML UCUP PO SCH (21:06)
[2020-09-26] MEDS: MUPIROCIN 2% OINT 22GM TUBE TOP SCH (21:07)
[2020-09-27] MEDS: Levofloxacin500mg IV 500 MG/100 ML BAG IV SCH ×2 (00:24→23:06)
[2020-09-27] MEDS: HYDROCODONE/APAP 7.5/325 MG TAB PO PRN ×3 (00:34→14:31)
[2020-09-27] MEDS: VANCOMYCIN 2 GM in NA CHLORIDE 0.9% 500 ML IVPB SCH (03:08)
[2020-09-27] MEDS: MORPHINE 2 MG/ML SYR IV PRN ×2 (04:55→18:24)
[2020-09-27 06:06] LABS: Absolute Lymphocytes (CBC) 1.3 K/uL (0.7-4.9); Basophils % 0.3 % (0-1.3); Hematocrit 38.8 % (39.6-49.0); Lymphocytes % 17.8 % (15.3-44.8); MPV 10.1 fL (7.6-11.3); RBC Red Blood Cell Count 4.14 M/uL (4.33-5.43)
[2020-09-27 06:17] LABS: BUN Blood Urea Nitrogen 15 mg/dL (7-18); Bicarbonate 26 mmol/L (21-32); Glucose Level 161 mg/dL (74-106); Magnesium 2.2 mg/dL (1.8-2.4); Potassium 3.8 mmol/L (3.5-5.1); Sodium Level 136 mmol/L (136-145)
[2020-09-27] MEDS: INSULIN -REGULAR HUMAN 50 UNIT/0.5 ML ML SQ SCH ×4 (07:30→21:50)
[2020-09-27] MEDS: MUPIROCIN 2% OINT 22GM TUBE TOP SCH ×2 (09:00→21:00)
[2020-09-27] MEDS ORDERED: HOME MED 1 EA UNK (Amitriptyline Hcl [Amitriptyline Hcl] 100 MG Tablet) PO SCH (09:00)
[2020-09-27] MEDS ORDERED: HOME MED 1 EA UNK (Paroxetine Hcl [Paroxetine Hcl] 20 MG Tablet) PO SCH (09:00)
[2020-09-27] MEDS: CYCLOBENZAPRINE 10 MG TAB PO SCH ×2 (09:13→21:49)
[2020-09-27] MEDS: LACTULOSE 20 GM/30 ML UCUP PO SCH (09:14)
[2020-09-27] MEDS: PARoxetine HCL 10 MG TAB PO SCH (09:14)
[2020-09-27] MEDS: AMITRIPTYLINE 50 MG TAB PO SCH (09:15)
--- NOTE | 2020-09-27 11:40 | PN ---
Date of Progress Note: 09/27/2020 Subjective: The patient is awake alert. No complaint. Vitals are stable. Afebrile. Cultures pend ing. Gram stain shows 4+ staph coagulase positive and 1+ gram-negative rods. Dressing is clean, dry , and intact. Assessment: Debridement of left first toe infected diabetic wound. Recommendations: Continue wound care as ordered, IV antibiotics. Check cultures, adjust antibiotics accordingly. Discharge hopefully in 24-48 hours, if erythema, edema in the patient is decreasing an d infection is improving. /MODL Voice ID: [id number] Report ID: [id number]
[2020-09-27] MEDS: NA CHLORIDE 0.9% 1,000 ML IV SCH (14:32)
--- NOTE | 2020-09-27 15:33 | P.PN ---
Subjective Date of Service: 09/27/20 Primary Care Provider: None Chief Complaint: Sepsis, diabetic foot wound Status post I and D and debridement by Dr. Gatica on 09/26. Patient has been afebrile. Blood culture is growing Gram positive cocci in clusters and chains. Patient also complaining of diarrhea and back pain. Physical Examination - Vital Signs Temperature: 99.2 F Blood Pressure: 125/61 Pulse: 81 Respirations: 18 Pulse Ox (%): 97 - Physical Exam General: Alert, In no apparent distress, Oriented x3, Obese (Morbidly) Respiratory: Clear to auscultation bilaterally, Normal air movement Cardiovascular: No edema, Regular rate/rhythm, Normal S1 S2 Gastrointestinal: Normal bowel sounds, Soft and benign, Non-distended, No tenderness Musculoskeletal: No swelling, Other (Left foot dressed.) Integumentary: Other (Bilateral venous stasis dermatitis.) Neurological: Normal speech, Normal strength at 5/5 x4 extr - Studies Microbiology Data (last 24 hrs): 09/25/20 19:22 Wound - Left Foot Gram Stain - Final Assessment And Plan - Current Problems (Diagnosis) (1) Diabetic foot ulcer Current Visit: Yes Status: Acute (2) Morbid obesity with BMI of 60.0-69.9, adult Onset Date: 11/19/16 Current Visit: No Status: Acute (3) Severe sepsis Onset Date: 05/07/18 Current Visit: No Status: Acute (4) Type 2 diabetes mellitus Onset Date: 11/19/16 Current Visit: No Status: Acute (5) Peripheral vascular disease Current Visit: Yes Status: Acute (6) Thrombocytopenia Onset Date: 05/07/18 Current Visit: No Status: Acute (7) Acute renal failure Onset Date: 05/07/18 Current Visit: No Status: Acute (8) Gram-positive bacteremia Current Visit: Yes Status: Acute - Plan Status post I and debridement. Blood culture growing Gram positive cocci. Wound culture: Polymicrobial growth Continue IV Levaquin and vancomycin. Start acidophilus given diarrhea. Stops lactulose. Follow cultures organism ID and sensitivity Aggressive blood sugar control with Lantus insulin and insulin sliding scale. Continue IV fluid. Wound care per general surgery Dr. Gatica is following. Arterial Doppler of lower extremities shows mild disease on the left lower extremity. Physician Review: Patient Assessed, Agree with Above Assessment and Plan Physician Review Additional Text: Sepsis Diabetic foot ulcer. PVD IV antibiotics General surgery consult. Obtain arterial Doppler of both lower extremities. No evidence of osteomyelitis on the x-ray.
[2020-09-27 22:04] VITALS: BMI 50.3
[2020-09-28] MEDS ORDERED: VANCOMYCIN 2.25 GM in NA CHLORIDE 0.9% 500 ML IVPB SCH (03:00)
[2020-09-28] MEDS: MORPHINE 2 MG/ML SYR IV PRN (03:48)
[2020-09-28 06:12] LABS: Absolute Lymphocytes (CBC) 0.8 K/uL (0.7-4.9); Basophils % 0.7 % (0-1.3); Hematocrit 36.4 % (39.6-49.0); Lymphocytes % 15.5 % (15.3-44.8); MPV 9.6 fL (7.6-11.3); RBC Red Blood Cell Count 3.88 M/uL (4.33-5.43)
[2020-09-28 06:30] LABS: BUN Blood Urea Nitrogen 12 mg/dL (7-18); Bicarbonate 28 mmol/L (21-32); Glucose Level 160 mg/dL (74-106); Magnesium 1.9 mg/dL (1.8-2.4); Potassium 3.4 mmol/L (3.5-5.1); Sodium Level 137 mmol/L (136-145)
[2020-09-28] MEDS: INSULIN -REGULAR HUMAN 50 UNIT/0.5 ML ML SQ SCH ×2 (07:30→11:30)
[2020-09-28] MEDS: MUPIROCIN 2% OINT 22GM TUBE TOP SCH (09:00)
[2020-09-28] MEDS ORDERED: POTASSIUM 25 MEQ EFFERV TAB PO ONE (09:00)
[2020-09-28] MEDS: HYDROCODONE/APAP 7.5/325 MG TAB PO PRN (09:55)
[2020-09-28] MEDS: CYCLOBENZAPRINE 10 MG TAB PO SCH (09:55)
[2020-09-28] MEDS: AMITRIPTYLINE 50 MG TAB PO SCH (09:56)
[2020-09-28] MEDS: PARoxetine HCL 10 MG TAB PO SCH (09:56)
--- NOTE | 2020-09-28 11:57 | PN ---
Date of Progress Note: 09/28/2020 Subjective: Patient is awake, alert. No complaints. Cultures reviewed. Patient is growing Staph a ureus and Morganella morganii, sensitive to Bactrim and Cipro. Objective: VITAL SIGNS: Stable. Afebrile. WOUND: Reveals decrease in erythema and edema. The wound has good granulation tissue. There is a s cab on the medial aspect of the left great toe, which was the area where it was a partial thickness w ound. There was some hypertrophic granulation tissue as well. Assessment: Status post incision, drainage, and debridement of left great toe diabetic infection. Recommendations: As patient is sensitive to oral antibiotics and wound appears to be better and cell ulitis has much improved, patient is cleared from surgery standpoint for discharge. Patient's white count is normal as well. Discharge instructions given. Collagenase dressing as ordered. Cipro and Bactrim. [facility]. /MODL Voice ID: [id number] Report ID: [id number]
[2020-09-28 11:58] VITALS: BP 149/73; TEMP 97
[2020-09-28 12:44] VITALS: O2SAT 94
--- NOTE | 2020-09-28 12:58 | P.DS ---
Admission Date: 09/25/20 Discharge Date: 09/28/20 Primary Care Provider: None Disposition: ROUTINE DISCHARGE Discharge Condition: FAIR Reason for Admission: Sepsis, diabetic foot wound - Problems (1) Diabetic foot ulcer Current Visit: Yes Status: Acute (2) Morbid obesity with BMI of 60.0-69.9, adult Onset Date: 11/19/16 Current Visit: No Status: Acute (3) Severe sepsis Onset Date: 05/07/18 Current Visit: No Status: Acute (4) Type 2 diabetes mellitus Onset Date: 11/19/16 Current Visit: No Status: Acute (5) Peripheral vascular disease Current Visit: Yes Status: Acute (6) Thrombocytopenia Onset Date: 05/07/18 Current Visit: No Status: Acute (7) Acute renal failure Onset Date: 05/07/18 Current Visit: No Status: Acute (8) Gram-positive bacteremia Current Visit: Yes Status: Acute Brief History of Present Illness: 54-year-old morbidly obese gentleman with a history of diabetes mellitus type 2 presented to the emergency department with a complaint of increased pain and swelling of his left great toe. Patient has had chronic nonhealing left great toe wound. He was concern for increased infection. Patient also has some redness around the wound concerning for cellulitis. Patient was septic in the ED with fever, tachycardia, hypotension and elevated lactate. Sepsis protocol was initiated in the ED, his blood pressure responded to IV hydration. Patient was palpable on IV antibiotics and admitted for further management. Hospital Course: Patient treated with IV vancomycin and Levaquin. He was seen in consultation by general surgery Dr. Gatica will performed wound debridement. Patient was kept on antibiotics post-op. He was afebrile in the postop period. Blood culture grew Streptococcus anginosus likely a skin contaminant. Repeat blood culture yielded no growth. Wound culture grew MSSA and Morganella sensitive to ciprofloxacin and Bactrim. Patient has clinically improved with treatment. No longer septic. Cellulitis have improved. Patient deemed stable for discharge per surgery-Dr. Gatica. Patient is discharged with oral Cipro and Flagyl to continue treatment for cellulitis and infected wound. He will follow with Dr. Gatica within 1 week. Wound care instructions have been provided by Dr. Gatica. Vital Signs/Physical Exam: Temp Pulse Resp BP Pulse Ox 97 F 82 18 149/73 H 93 09/28/20 11:54 09/28/20 11:54 09/28/20 11:54 09/28/20 11:54 09/28/20 11:54 General: Alert, In no apparent distress, Obese Respiratory: Clear to auscultation bilaterally, Normal air movement Cardiovascular: No edema, Regular rate/rhythm, Normal S1 S2 Gastrointestinal: Soft and benign, Non-distended Musculoskeletal: Other (Left foot dressed) Neurological: Normal speech, Normal strength at 5/5 x4 extr Laboratory Data at Discharge: WBC 5.2 K/uL (4.3-10.9) D 09/28/20 05:42 Hgb 12.1 g/dL (13.6-17.9) L 09/28/20 05:42 Hct 36.4 % (39.6-49.0) L 09/28/20 05:42 Plt Count 84 K/uL (152-406) L 09/28/20 05:42 PT 14.2 SECONDS (9.5-12.5) H 09/25/20 19:22 INR 1.21 09/25/20 19:22 APTT 26.7 SECONDS (24.3-36.9) 09/25/20 19:22 Sodium 137 mmol/L (136-145) 09/28/20 05:42 Potassium 3.4 mmol/L (3.5-5.1) L 09/28/20 05:42 BUN 12 mg/dL (7-18) 09/28/20 05:42 Creatinine 0.51 mg/dL (0.55-1.3) L 09/28/20 05:42 Glucose 160 mg/dL (74-106) H 09/28/20 05:42 Magnesium 1.9 mg/dL (1.8-2.4) 09/28/20 05:42 Total Bilirubin 3.2 mg/dL (0.2-1.0) H 09/25/20 19:22 AST 38 U/L (15-37) H 09/25/20 19:22 ALT 43 U/L (12-78) 09/25/20 19:22 Alkaline Phosphatase 74 U/L (45-117) 09/25/20 19:22 Troponin I < 0.02 ng/mL (0.0-0.045) 09/26/20 00:50 Lipase 142 U/L (73-393) 09/25/20 19:22 Home Medications: Amitriptyline HCl 100 mg PO DAILY 09/26/20 Cyclobenzaprine [Flexeril*] 20 mg PO BID 09/26/20 Empagliflozin [Jardiance] 25 mg PO DAILY 09/26/20 Ergocalciferol (Vitamin D2) [Vitamin D2] 1.25 mg PO SEECOM 09/26/20 Glimepiride [Amaryl*] 2 mg PO DAILY 09/26/20 Metformin HCl 1,000 mg PO BID 09/26/20 Multivitamin 2 tab PO DAILY 09/26/20 PARoxetine HCL [Paroxetine HCl] 20 mg PO DAILY 09/26/20 Potassium Chloride 1 tab PO DAILYPRN PRN 09/26/20 hydroCHLOROthiazide [Hydrochlorothiazide*] 12.5 mg PO DAILY 09/26/20 Ciprofloxacin HCl [Cipro 500 MG Tablet] 500 mg PO BID #20 tab 09/28/20 Codeine/APAP [Tylenol W/Codeine #3 tab] 1 tab PO Q6HP PRN #20 tab 09/28/20 Mupirocin Oint [Bactroban 2% Ointment*] 1 appl TOP BID #1 tube 09/28/20 Smz./Tmp. [Bactrim Ds 800 MG/160 MG] 1 tab PO BID #20 tab 09/28/20 New Medications: Codeine/APAP [Tylenol W/Codeine #3 tab] 1 tab PO Q6HP PRN #20 tab PRN Reason: Pain Smz./Tmp. [Bactrim Ds 800 MG/160 MG] 1 tab PO BID #20 tab Mupirocin Oint [Bactroban 2% Ointment*] 1 appl TOP BID #1 tube Ciprofloxacin HCl [Cipro 500 MG Tablet] 500 mg PO BID #20 tab Patient Discharge Instructions: Collagenase to wound daily. [facility]. [facility] my clinic F/U in my clinic Diet: ADA Activity: Ad kevin Followup: NONE,NONE [Primary Care Provider] - Gerardo Gatica MD [ACTIVE - CAN ADMIT] - 1 Week ([facility] my clinic) Time spent managing pt's care (in minutes): 37
== END 2020-09-28 14:32 | disposition home or self-care (01) | DRG 854 ==
LOC: ER 16:47 → ERHOLD 21:50 → 2ND 09-26 07:31
PROVIDERS: ADMIT Internal Medicine; ATTEND Internal Medicine
PROC: 0JBR0ZZ Excision of Left Foot Subcutaneous Tissue and Fascia, Open Approach (ICD-10-PCS; principal; 2020-09-26 11:00)
DX: A41.01 Sepsis due to Methicillin susceptible Staphylococcus aureus (principal); N17.9 Acute kidney failure, unspecified; Z68.44 Body mass index [BMI] 60.0-69.9, adult; E66.01 Morbid (severe) obesity due to excess calories; R65.20 Severe sepsis without septic shock; L03.032 Cellulitis of left toe; E11.628 Type 2 diabetes mellitus with other skin complications; E11.51 Type 2 diabetes mellitus with diabetic peripheral angiopathy without gangrene; E11.40 Type 2 diabetes mellitus with diabetic neuropathy, unspecified; D69.6 Thrombocytopenia, unspecified; I10 Essential (primary) hypertension; E78.5 Hyperlipidemia, unspecified; Z88.0 Allergy status to penicillin; Z88.4 Allergy status to anesthetic agent; Z88.8 Allergy status to other drugs, medicaments and biological substances; Z98.84 Bariatric surgery status; Z79.84 Long term (current) use of oral hypoglycemic drugs; Z79.899 Other long term (current) drug therapy; Z20.828 Contact with and (suspected) exposure to other viral communicable diseases
CPT/HCPCS: 36415; 71045; 80048; 80076; 80202; 81003; 82550; 82947; 83036; 83605; 83690; 83735; 84132; 84145; 84484; 85025; 85610; 85652; 85730; 86140; 87040; 87070; 87075; 87077; 87186; 87205; 88304; 93005; 93925; 99285; J0690; J2270; J2704; J3010; J3370; J3590; J7030; J7040; J7050; U0003

== ENCOUNTER 2021-11-26 10:37 | Inpatient (IN) | payer OTHER ==
--- OUTSIDE RECORDS SUMMARY | 2021-11-26 10:40 | XMS REPORT | Continuity of Care Document ---
:1965 Author Organization [facility] Address [address] [place] [address] Dr. Jon [address] [place] [id number] Care Team Providers Name Role Phone Elinor PERKINS Attending Clinician Unavailable Elinor PERKINS Admitting Clinician Unavailable Problems This patient has no known problems. Allergies, Adverse Reactions, Alerts This patient has no known allergies or adverse reactions. Medications This patient has no known medications. Procedures This patient has no known procedures. Results Test Description Test Time Test Comments Results Result Comments Source HEPARIN ANTIBODY 2018-05-25 13:18:00 Test Item Value Reference Range Interpretation Comme nts HEPARIN ANTIBODY (BEAKER) (test code = 646) Negative Negative HEPARIN ANTIBODY OD (BEAKER) (test code = 2659) 0.184 <0.400 Probability of HIT based on scoring system: 6-8 = High probability; 4-5 = intermediate probability;0-3 = low probabilityAFB CULTURE + [id number] 13:17:00 Test Item Value Reference Range Interpretation Comments CULTURE (BEAKER) (test No acid-fast bacilli code = 1095) isolated in 42 days AFB SMEAR (BEAKER) No acid fast bacilli (test code = 994) seen FUNGUS CULTURE + [id number] 11:30:00 Test Item Value Reference Range Interpretation Comments CULTURE (BEAKER) (test No fungus isolated in code = 1095) 28 days FUNGUS SMEAR (BEAKER) No fungi seen (test code = 1406) ANAEROBIC [id number] 04:39:00 Test Item Value Reference Range Interpretation Comments CULTURE (BEAKER) (test code A 1+ Finegoldia magna = 1095) SURGICALLY OBTAINED CULTURE + GRAM [id number] 10:26:00 Test Item Value Reference Range Interpretation [...] gram (BEAKER) (test code = positive cocci 069941) in pairs BLOOD [id number] 05:02:00 Test Item Value Reference Range Interpretation Comments CULTURE (BEAKER) (test No growth in 5 days code = 1095) BLOOD [id number] 05:02:00 Test Item Value Reference Range Interpretation Comments CULTURE (BEAKER) (test No growth in 5 days code = 1095) POCT-GLUCOSE [id number] 12:56:00 Test Item Value Reference Range Interpretation Comments POC-GLUCOSE METER 127 mg/dL 70-110 H TESTED AT [facility] 6720 (BEAKER) (test code = [facility] 1538) [address] TISSUE [id number] 11:24:00Surgical Pathology Report Case: [id number] Authorizing Provider: Oniel Dejesus MD Collected: 10/25/2017 1145 Ordering Location: [address] Received: 10/27/2017 0729 Service Pathologist: Sherin Lui MD Specimen: Soft Tissue, Other, Neck Cystic Wall A. NECK, CYST WALL, EXCISION:- INFLAMED CYST WALL - NEGATIVE FOR MALIGNANCY Signing Pathologist Direct Phone Line: [phone] signed by Sherin Lui MD on 10/28/2017 at 11:24 [id number] neck abscessNeck cystic wallThe specimen is received [...] keratin (or) giant cell reaction is identified.CALCIUM, [id number] 06:20:00 Test Item Value Reference Range Interpretation Comments CALCIUM IONIZED (BEAKER) (test 0.93 mmol/L 1.12-1.27 L code = 698) PH, BLOOD (BEAKER) (test code = 7.36 1810) [id number] 05:23:00 Test Item Value Reference Range Interpretation Comments PHOSPHORUS (BEAKER) (test code = 3.2 mg/dL 2.3-4.7 604) [id number] 05:23:00 Test Item Value Reference Range Interpretation Comments MAGNESIUM (BEAKER) (test code = 1.8 mg/dL 1.6-2.6 627) BASIC METABOLIC [id number] 05:23:00 Test Item Value Reference Range Interpretation [...] PATIEN TS. CBC W/PLT COUNT & AUTO [id number] 05:07:00 Test Item Value Reference Range Interpretation [...] PERCENT (BEAKER) (test code = 2801) POCT-GLUCOSE [id number] 21:34:00 Test Item Value Reference Range Interpretation Comments POC-GLUCOSE METER 164 mg/dL 70-110 H TESTED AT [place] [address] (BEBANNER) (test code = [facility] [place] 1538) [address] POCT-GLUCOSE [id number] 17:56:00 Test Item Value Reference Range Interpretation Comments POC-GLUCOSE METER 119 mg/dL 70-110 H TESTED AT [place] [address] (BEBANNER) (test code = [facility] [place] 1538) [address] SPIN/CONCENTRATION [id number] 14:02:00 Test Item Value Reference Range Interpretation Comments CONCENTRATION CHARGED (BEBANNER) (test Done code = 2657) POCT-GLUCOSE [id number] 12:51:00 Test Item Value Reference Range Interpretation Comments POC-GLUCOSE METER 133 mg/dL 70-110 H TESTED AT [place] [address] ([facility]) (test code = [facility] 1538) [address] POCT-GLUCOSE [id number] 08:32:00 Test Item Value Reference Range Interpretation Comments POC-GLUCOSE METER 139 mg/dL 70-110 H TESTED AT [place] [address] ([facility]) (test code = [facility] 1538) [address] CALCIUM, [id number] 06:56:00 Test Item Value Reference Range Interpretation Comments CALCIUM IONIZED (BEAKER) (test 0.82 mmol/L 1.12-1.27 L code = 698) PH, BLOOD (BEAKER) (test code = 7.34 1810) [id number] 05:16:00 Test Item Value Reference Range Interpretation Comments PHOSPHORUS (BEAKER) (test code = 3.5 mg/dL 2.3-4.7 604) [id number] 05:16:00 Test Item Value Reference Range Interpretation Comments MAGNESIUM (BEAKER) (test code = 1.9 mg/dL 1.6-2.6 627) BASIC METABOLIC [id number] 05:16:00 Test Item Value Reference Range Interpretation [...] Specimen slightly ictericCBC W/PLT COUNT & AUTO [id number] 04:50:00 Test Item Value Reference Range Interpretation [...] PERCENT (BEAKER) (test code = 2801) POCT-GLUCOSE [id number] 21:14:00 Test Item Value Reference Range Interpretation Comments POC-GLUCOSE METER 169 mg/dL 70-110 H TESTED AT [place] [address] ([facility]) (test code = [facility] 1538) [address] POCT-GLUCOSE [id number] 19:08:00 Test Item Value Reference Range Interpretation Comments POC-GLUCOSE METER 146 mg/dL 70-110 H TESTED AT [place] [address] (BEBANNER) (test code = [facility] 1538) [address] POCT-GLUCOSE [id number] 13:25:00 Test Item Value Reference Range Interpretation Comments POC-GLUCOSE METER 141 mg/dL 70-110 H TESTED AT [place] [address] (BEBANNER) (test code = [facility] 1538) [address] POCT-GLUCOSE [id number] 08:18:00 Test Item Value Reference Range Interpretation Comments POC-GLUCOSE METER 133 mg/dL 70-110 H TESTED AT [place] [address] (BE[facility]ANNER) (test code = [facility] 1538) [address] CBC W/PLT COUNT & AUTO [id number] 06:08:00 Test Item Value Reference Range Interpretation Comments WHITE BLOOD CELL COUNT (BEAKER) 4.9 K/ L 3.5-10.5 (test code = [...] 0-1 PERCENT (BEAKER) (test code = 2801) [id number] 05:13:00 Test Item Value Reference Range Interpretation Comments PHOSPHORUS (BEAKER) (test code = 3.4 mg/dL 2.3-4.7 604) [id number] 05:13:00 Test Item Value Reference Range Interpretation Comments MAGNESIUM (BEAKER) (test code = 1.9 mg/dL 1.6-2.6 627) BASIC METABOLIC [id number] 05:13:00 Test Item Value Reference Range Interpretation [...] DIALYSIS PATIEN TS. Specimen slightly ictericHEPATIC FUNCTION [id number] 05:13:00 Test Item Value Reference Range Interpretation Comments TOTAL PROTEIN (BEAKER) (test code = 6.8 gm/dL 6.0-8.3 770) ALBUMIN (BEAKER) (test code = 1145) 3.0 g/dL 3.5-5.0 L BILIRUBIN TOTAL (BEAKER) (test code 2.9 mg/dL 0.2-1.2 H = 377) BILIRUBIN DIRECT (BEAKER) (test 1.1 mg/dL 0.1-0.5 H code = 706) ALKALINE PHOSPHATASE (BEAKER) (test 63 U/L 40-150 code = 346) AST (SGOT) ([facility]) (test code = 33 U/L 5-34 353) ALT (SGPT) ([facility]) (test code = 16 U/L 6-55 347) Specimen slightly ictericVANCOMYCIN LEVEL, [id number] 05:05:00 Test Item Value Reference Range Interpretation Comments VANCOMYCIN TROUGH ([facility]) (test 20.0 ug/mL 10.0-20.0 code = 522) Please draw 30 minutes prior to vancomycin due time. Do not administer if vancomycin trough is >20 mcg/mL. Thank you!POCT-GLUCOSE [id number] 20:11:00 Test Item Value Reference Range Interpretation Comments POC-GLUCOSE METER 153 mg/dL 70-110 H TESTED AT [place] [address] ([facility]) [facility] 15[facility] [address] POCT-GLUCOSE [id number] 16:31:00 Test Item Value Reference Range Interpretation Comments POC-GLUCOSE METER 168 mg/dL 70-110 H TESTED AT [place] [address] ([facility]) (test code = [facility] Jihan [facility] 1538) [address] POCT-GLUCOSE [id number] 12:39:00 Test Item Value Reference Range Interpretation Comments POC-GLUCOSE METER 161 mg/dL 70-110 H TESTED AT [place] [address] ([facility]) (test code = [facility] 1538) [address] T4, [id number] 09:05:00 Test Item Value Reference Range Interpretation Comments FREE T4 ([facility]) (test code = 655) 1.00 ng/dL 0.70-1.48 T3, [id number] 09:05:00 Test Item Value Reference Range Interpretation Comments T3 FREE ([facility]) (test code = 908) 2.33 pg/mL 1.71-3.71 CALCIUM, [id number] 07:37:00 Test Item Value Reference Range Interpretation Comments CALCIUM IONIZED ([facility]) (test 0.97 mmol/L 1.12-1.27 L code = 698) PH, BLOOD ([facility]) (test code = 7.38 1810) [id number] 06:53:00 Test Item Value Reference Range Interpretation Comments PHOSPHORUS ([facility]) (test code = 2.8 mg/dL 2.3-4.7 604) [id number] 06:53:00 Test Item Value Reference Range Interpretation Comments MAGNESIUM (BEAKER) (test code = 1.6 mg/dL 1.6-2.6 627) BASIC METABOLIC [id number] 06:53:00 Test Item Value Reference Range Interpretation [...] DIALYSIS PATIEN TS. Specimen slightly ictericHEPATIC FUNCTION [id number] 06:53:00 Test Item Value Reference Range Interpretation [...] Specimen slightly ictericCBC W/PLT COUNT & AUTO [id number] 05:17:00 Test Item Value Reference Range Interpretation [...] PERCENT (BEAKER) (test code = 2801) POCT-GLUCOSE [id number] 21:13:00 Test Item Value Reference Range Interpretation Comments POC-GLUCOSE METER 157 mg/dL 70-110 H TESTED AT [facility] 6720 (BETRISTAN) (test code = [facility] [place] 1538) [address] POCT-GLUCOSE [id number] 18:28:00 Test Item Value Reference Range Interpretation Comments POC-GLUCOSE METER 159 mg/dL 70-110 H TESTED AT [facility] 6720 (BEBANNER) (test code = [facility] 1538) [address] U/S, [id number] 17:36:00Reason for exam:->posterior and right lateral neck, [...] MDReport Verified Date/Time: 10/24/2017 17:36:55 Reading Location: [address] Ultrasound Reading Room CREATINE KINASE (CK), TOTAL AND [id number] 13:13:00 Test Item Value Reference Range Interpretation Comments CREATINE KINASE TOTAL (BEAKER) 122 U/L 29-200 (test code = 380) CREATINE KINASE-MB (BEAKER) (test 1.0 ng/mL 0.0-6.6 code = 750) CREATINE KINASE-MB INDEX (BEAKER) 0.8 % (test code = 395) CK-MB Reference Range:<6.7 Normal6.7-10.0 Borderline>10.0 AbnormalTROPONIN [id number] 13:13:00 Test Item Value Reference Range Interpretation Comments TROPONIN I ERIC) (test code = 397) < ng/mL 0.00-0.03 [...] acidosis, acute neurological disease, and persistent tachyarrhythmia.HEMOGLOBIN [id number] 13:09:00 Test Item Value Reference Range Interpretation Comments HEMOGLOBIN A1C ERIC) (test code = 9.0 % 4.3-6.1 H 368) RAD, CHEST, 1 VIEW, NON [id number] 12:58:00Reason for exam:->Right upper chest painShould this [...] seen. IMPRESSION: Clear lungs. Signed: Sarika Guzmán Verified Date/Time: 10/24/2017 12:58:39 Reading Location: [facility] Radiology Reading Room CT, BRAIN, WITHOUT [id number] 12:46:00 Reason for exam:->Right arm paresthesiaFINAL REPORT [...] abnormality, MRI is advised. Signed: Mary Pratt Verified Date/Time: 10/24/2017 12:46:53 Reading Location: [facility] Radiology Reading Room POCT-GLUCOSE METER 2017-10-24 12:40:00 Test Item Value Reference Range Interpretation Comments POC-GLUCOSE METER 156 mg/dL 70-110 H TESTED AT [facility] 6720 ([facility]) (test code = [facility] 1538) [address] T4, [id number] 12:09:00 Test Item Value Reference Range Interpretation Comments FREE T4 ([facility]) (test code = 655) 0.95 ng/dL 0.70-1.48 SEDIMENTATION [id number] 10:04:00 Test Item Value Reference Range Interpretation Comments SEDIMENTATION RATE, ERYTHROCYTE 59 mm/HR 0-20 H ([facility]) (test code = 766) POCT-GLUCOSE [id number] 09:02:00 Test Item Value Reference Range Interpretation Comments POC-GLUCOSE METER 151 mg/dL 70-110 H TESTED AT [facility] 6720 ([facility]) (test code = [facility] 1538) [address] TSH/FREE T4 IF [id number] 07:38:00 Test Item Value Reference Range Interpretation Comments THYROID STIMULATING HORMONE 0.30 uIU/mL 0.35-4.94 L ([facility]) (test code = 772) [id number] 07:36:00 Test Item Value Reference Range Interpretation Comments PHOSPHORUS (BEAKER) (test code = 2.5 mg/dL 2.3-4.7 604) [id number] 07:36:00 Test Item Value Reference Range Interpretation Comments MAGNESIUM (BEAKER) (test code = 1.7 mg/dL 1.6-2.6 627) BASIC METABOLIC [id number] 07:36:00 Test Item Value Reference Range Interpretation [...] NOT APPLICABLE FOR DIALYSIS PATIEN TS. LIPID [id number] 07:36:00 Test Item Value Reference Range Interpretation [...] 130-159 High 160-189 Very High >=190HEPATIC FUNCTION [id number] 07:36:00 Test Item Value Reference Range Interpretation [...] 6-55 347) CREATINE KINASE (CK), TOTAL AND [id number] 07:36:00 Test Item Value Reference Range Interpretation Comments CREATINE KINASE TOTAL (BEAKER) 106 U/L 29-200 (test code = 380) CREATINE KINASE-MB (BEAKER) (test 0.8 ng/mL 0.0-6.6 code = 750) CREATINE KINASE-MB INDEX (BEAKER) 0.8 % (test code = 395) CK-MB Reference Range:<6.7 Normal6.7-10.0 Borderline>10.0 AbnormalTROPONIN [id number] 07:31:00 Test Item Value Reference Range Interpretation [...] acute neurological disease, and persistent tachyarrhythmia.BUN AND [id number] 07:26:00 Test Item Value Reference Range Interpretation [...] Specimen slightly ictericCBC W/PLT COUNT & AUTO [id number] 05:54:00 Test Item Value Reference Range Interpretation [...] = 2801) CREATINE KINASE (CK), TOTAL AND [id number] 00:32:00 Test Item Value Reference Range Interpretation Comments CREATINE KINASE TOTAL (BEAKER) 113 U/L 29-200 (test code = 380) CREATINE KINASE-MB (BEAKER) (test 1.1 ng/mL 0.0-6.6 code = 750) CREATINE KINASE-MB INDEX (BEAKER) 1.0 % (test code = 395) CK-MB Reference Range:<6.7 Normal6.7-10.0 Borderline>10.0 AbnormalTROPONIN [id number] 00:32:00 Test Item Value Reference Range Interpretation [...] acidosis, acute neurological disease, and persistent tachyarrhythmia.C-REACTIVE [id number] 00:25:00 Test Item Value Reference Range Interpretation Comments C-REACTIVE PROTEIN (BEAKER) (test 3.09 mg/dL 0.00-0.50 H code = 676)
[2021-11-26] MEDS ORDERED: ONDANSETRON 4 MG/2 ML VIAL ONE (11:20)
[2021-11-26] MEDS ORDERED: NA CHLORIDE 0.9% 1,000 ML ONE ×2 (11:20→12:55)
[2021-11-26] MEDS ORDERED: MORPHINE 4 MG/ML SYR ONE ×2 (11:20→14:58)
[2021-11-26 11:52] LABS: Absolute Lymphocytes (CBC) 0.8 K/uL (0.7-4.9); Hematocrit 45.6 % (39.6-49.0); Lymphocytes % 15.4 % (15.3-44.8); MPV 9.9 fL (7.6-11.3); RBC Red Blood Cell Count 4.91 M/uL (4.33-5.43)
[2021-11-26 11:54] LABS: Protime INR 1.31
[2021-11-26 12:02] LABS: Albumin 3.1 g/dL (3.4-5.0); Bilirubin Direct 0.8 mg/dL (0-0.2); Bilirubin Total 2.6 mg/dL (0.2-1.0); Magnesium 1.9 mg/dL (1.8-2.4); Potassium 3.3 mmol/L (3.5-5.1); Protein, Total 8.1 g/dL (6.4-8.2); Troponin High Sensitivity 49.1 pg/mL (<58.9)
--- NOTE | 2021-11-26 12:25 | RAD REPORT ---
EXAM DESCRIPTION: RAD - Knee Left 3 View - 11/26/2021 12:14 pm CLINICAL HISTORY: left knee pain COMPARISON: No comparisons FINDINGS: No acute fracture. No malalignment. Moderate medial compartment narrowing. Lateral compart ment spurring. Moderate patellofemoral compartment narrowing and spurring. IMPRESSION: No acute osseous abnormality involving the left knee.
--- NOTE | 2021-11-26 12:26 | RAD REPORT ---
EXAM DESCRIPTION: RAD - Chest Single View - 11/26/2021 12:14 pm CLINICAL HISTORY: SOB COMPARISON: Chest Single View dated 09/25/2020; Chest Single View dated 05/09/2018; Chest Single View dated 05/08/2018; Abdomen 1 View (KUB) dated 05/07/2018; Extremity Venous Uni Ltd dated 11/26/2021 FINDINGS: Lines: None. Lungs: Prominence of the central pulmonary vasculature. Pleural: No significant pleural effusions or pneumothorax. Cardiac: Cardiomegaly. Bones: No acute fractures. Other: IMPRESSION: Suspect vascular congestion but no alveolar edema or consolidative airspace disease.
--- NOTE | 2021-11-26 12:35 | RAD REPORT ---
EXAM DESCRIPTION: US - Extremity Venous Uni Ltd - 11/26/2021 12:10 pm CLINICAL HISTORY: Swelling COMPARISON: None. TECHNIQUE: Real-time sonographic evaluation of the left lower extremity deep venous system was perfo rmed. FINDINGS: Normal compressibility, flow augmentation, phasic flow and spontaneous flow is identified in the left lower extremity deep venous system. No intraluminal filling defects seen. IMPRESSION: No DVT in the left lower extremity.
[2021-11-26] MEDS ORDERED: DIAZEPAM 10 MG/2 ML INJ SYRINGE ONE (13:18)
[2021-11-26] MEDS ORDERED: LIDOCAINE 1% MPF 30 ML VIAL ONE (13:41)
--- NOTE | 2021-11-26 15:19 | RAD REPORT ---
EXAM DESCRIPTION: RAD - Abdomen 1 View (KUB) - 11/26/2021 3:13 pm CLINICAL HISTORY: Abdomen pain. FINDINGS: The bowel gas pattern is unremarkable. Pelvic calcifications probably a phlebolith
[2021-11-26] MEDS ORDERED: VANCOMYCIN 1 GM/VIAL ONE (15:33)
[2021-11-26] MEDS ORDERED: NA CHLORIDE 0.9% 250 ML ONE ×2 (15:33→23:59)
--- NOTE | 2021-11-26 15:43 | ER ---
Nurse's Notes [facility] Name: Colby Tilley Jr Age: 55 yrs Sex: Male : 1965 Arrival Date: 11/26/2021 Time: 10:37 Bed 17 Private MD: Ailin Zheng Diagnosis: Celllulitis of the Left Lower Leg Presentation: 11/26 10:46 Chief complaint: Patient states: loose stools x 3 days and states now he is feeling jh6 dehydrated. l knee pain and swelling without injury started yesterday. hx of DM venous reflux of bilat lower ext. Coronavirus screen: Client denies travel out of the [place] in the last 14 days. At this time, the client does not indicate any symptoms associated with coronavirus-19. Ebola Screen: Patient denies exposure to infectious person. Patient denies travel to an Ebola-affected area in the 21 days before illness onset. Initial Sepsis Screen: Does the patient meet any 2 criteria? Mean Arterial Pressure (MAP) < 65. HR > 90 bpm. Does the patient have a suspected source of infection? No. Patient's initial sepsis screen is negative. Risk Assessment: Do you want to hurt yourself or someone else? Patient reports no desire to harm self or others. Onset of symptoms. 10:46 Method Of Arrival: Ambulatory [facility] 10:46 Acuity: ZENAIDA 3 6 Triage Assessment: 10:51 General: Appears uncomfortable, obese, unkempt, Behavior is calm, cooperative. GI: [facility] Abdomen is round obese, Bowel sounds present X 4 quads. hyperactive in right upper quadrant, left upper quadrant, right lower quadrant and left lower quadrant Abd is soft Reports lower abdominal pain, upper abdominal pain, diarrhea. Historical: - Allergies: 10:51 anesthia; 6 10:51 Aspirin; 6 10:51 PENICILLINS; 6 10:51 PROPOFOL; 6 - Home Meds: 10:51 acetaminophen-codeine 300-30 mg Oral tab 1 tab every 6 hours [Active]; carvedilol 6.25 jh6 mg Oral tab 1 tab 2 times per day [Active]; - PMHx: 10:51 Diabetes - NIDDM; Hypertension; PVD; 6 - Immunization history:: Client reports receiving the 2nd dose of the Covid vaccine. - Social history:: Patient/guardian denies using Smoking status: . Screenin:54 Abuse screen: Denies threats or abuse. Nutritional screening: No deficits noted. tw2 Tuberculosis screening: No symptoms or risk factors identified. Fall Risk None identified. Assessment: 11:00 General: Appears in no apparent distress. uncomfortable, obese, Behavior is calm, tw2 cooperative, appropriate for age. Pain: Complains of pain in abdomen, left foot, right leg and left leg. Neuro: Level of Consciousness is awake, alert, obeys commands, Oriented to person, place, time, situation. Cardiovascular: Patient's skin is warm and dry. Respiratory: Airway is patent Respiratory effort is even, unlabored, Respiratory pattern is regular, symmetrical. GI: Reports lower abdominal pain, upper abdominal pain. : No signs and/or symptoms were reported regarding the genitourinary system. Derm: Wound noted plantar aspect of left first toe, left first toe and Left first toenail Wound is erythema and warmth noted to LEFT great toe. Musculoskeletal: Swelling present in right calf and left knee. 11:03 Reassessment: provider at bedside. tw2 12:50 Reassessment: Patient appears in no apparent distress at this time. No changes from tw2 previously documented assessment. Patient and/or family updated on plan of care and expected duration. Pain level reassessed. Patient is alert, oriented x 3, equal unlabored respirations, skin warm/dry/pink. 19:00 Reassessment: Patient and/or family updated on plan of care and expected duration. Pain vc1 level reassessed. Patient is alert, oriented x 3, equal unlabored respirations, skin warm/dry/pink. General: Appears in no apparent distress. uncomfortable, obese, Behavior is calm, cooperative, appropriate for age. Pain: Complains of pain in left leg. 21:30 Reassessment: Patient and/or family updated on plan of care and expected duration. Pain vc1 level reassessed. Patient is alert, oriented x 3, equal unlabored respirations, skin warm/dry/pink. Pain: Complains of pain in left leg Pain does not radiate. 22:15 Reassessment: Patient and/or family updated on plan of care and expected duration. Pain vc1 level reassessed. Patient is alert, oriented x 3, equal unlabored respirations, skin warm/dry/pink. Ambulated to bathroom. Vital Signs: 10:46 BP 127 / 83; Pulse 87; Resp 18; Temp 97.3; Pulse Ox 100% ; Weight 192.78 kg; Height 6 [facility] ft. 8 in. (203.20 cm); Pain 8/10; 11:50 BP 143 / 82; Pulse 92; Resp 17; Pulse Ox 100% on R/A; tw2 12:49 BP 133 / 68; Pulse 92; Resp 16; Pulse Ox 100% on R/A; tw2 16:09 BP 133 / 67; Pulse 97; Resp 18; Pulse Ox 94% on R/A; ld1 17:36 BP 140 / 62; Pulse 102; Resp 19; Pulse Ox 98% on R/A; ld1 18:43 BP 101 / 68; Pulse 100; Resp 18; Pulse Ox 92% on R/A; ld1 19:00 BP 116 / 60; Pulse 99; Resp 18; Pulse Ox 93% on R/A; vc1 20:30 BP 111 / 51; Pulse 96; Resp 18; Pulse Ox 94% on R/A; vc1 22:00 BP 116 / 61; Pulse 97; Resp 18; Pulse Ox 95% on R/A; vc1 10:46 Body Mass Index 46.69 (192.78 kg, 203.20 cm) [facility] ED Course: 10:37 Patient arrived in ED. as 10:38 Ailin Zheng is Private Physician. as 10:51 Triage completed. 6 10:51 Arm band placed on right wrist. 6 10:54 Bernie Paredes RN is Primary Nurse. tw2 10:54 Dioni Mauro PA is PHCP. [facility] 10:54 Moreno Agee MD is Attending Physician. [facility] 10:55 Bed in low position. Call light in reach. Pulse ox on. NIBP on. tw2 11:25 Inserted saline lock: 20 gauge in right forearm, using aseptic technique. ,using tw2 aseptic technique. by Cayla Arriola Blood collected. 12:10 US Extremity Venous Unilateral Ltd In Process Unspecified. EDMS 12:14 XRAY Chest (1 view) In Process Unspecified. EDMS 12:14 Knee Left 3 View XRAY In Process Unspecified. EDMS 15:00 Report given to VIRI Zamora. tw2 15:14 Abdomen 1 View (KUB) XRAY In Process Unspecified. EDMS 15:42 Jj Nobles is Hospitalizing Provider. m 16:20 Primary Nurse role handed off by Bernie Paredes RN 16:30 Sera Phan, RN is Primary Nurse. ld1 16:39 COVID-19/FLU A+B (Document "Date of Onset" if Symptomatic) Sent. ld1 22:21 No provider procedures requiring assistance completed. Patient admitted, IV remains in vc1 place. Administered Medications: 11:28 Drug: NS 0.9% 1000 ml Route: IV; Rate: 1 bolus; Site: right forearm; tw2 11:28 Drug: Zofran (Ondansetron) 4 mg Route: IVP; Site: right forearm; tw2 12:59 Follow up: Response: No adverse reaction tw2 11:30 Drug: morphine 4 mg {Note: RASS 0.} Route: IVP; Site: right forearm; tw2 12:59 Drug: NS 0.9% 1000 ml Route: IV; Rate: 1 bolus; Site: left forearm; tw2 13:20 Drug: Valium (diazepam) 5 mg Route: IVP; Site: right forearm; tw2 15:13 Follow up: Response: No adverse reaction tw2 15:00 Drug: morphine 4 mg Route: IVP; Site: right wrist; tw2 15:36 Drug: vancoMYCIN 1 grams Route: IVPB; Infused Over: 2 hrs; Site: right wrist; ld1 22:17 Follow up: IV Status: Completed infusion; IV Intake: 500ml vc1 Intake: 22:17 IV: 500ml; Total: 500ml. vc1 Outcome: 15:42 Decision to Hospitalize by Provider. jmm 22:21 Admitted to Tele accompanied by tech, via wheelchair, room 420, Report called to vc1 Receiving Nurse 22:21 Condition: good 22:21 Instructed on the need for admit. 22:52 Patient left the ED. vc1 Signatures: Dispatcher [employer] EDMS Fanny Dominguez Joel, PA PA jmm Martinez, Amelia as Bernie Paredes RN RN tw2 Sera Phan, RN RN ld1 Rebeca Potter RN RN jh6 Latanya Dowd RN RN vc1
--- NOTE | 2021-11-26 15:43 | EDPHYS ---
Physician Documentation [facility] Name: Colby Tilley Jr Age: 55 yrs Sex: Male : 1965 Arrival Date: 11/26/2021 Time: 10:37 Bed 17 Private MD: Ailin Zheng ED Physician Moreno Agee HPI: 11/26 10:59 This 55 yrs old Male presents to ER via Ambulatory with complaints of Diarrhea, jmm Dizziness, Knee Pain - swelling. 10:59 The patient presents to the emergency department with nausea, diarrhea, abdominal pain. jmm Onset: The symptoms/episode began/occurred gradually, 3.5 week(s) ago. Possible causes: unknown. This is a 55-year-old male with history of diabetes mellitus, hypertension, peripheral vascular disease the presents emerged part with complaints of 3 to 4 weeks of diarrhea which he attributes to beginning a new medication. States that yesterday he became more weak along with having some left knee pain. Patient states that now he is unable to walk himself due to weakness and pain. Patient states he is also still nursing a left great toe infection.. Historical: - Allergies: 10:51 anesthia; jh6 10:51 Aspirin; jh6 10:51 PENICILLINS; jh6 10:51 PROPOFOL; jh6 - Home Meds: 10:51 acetaminophen-codeine 300-30 mg Oral tab 1 tab every 6 hours [Active]; carvedilol 6.25 jh6 mg Oral tab 1 tab 2 times per day [Active]; - PMHx: 10:51 Diabetes - NIDDM; Hypertension; PVD; jh6 - Immunization history:: Client reports receiving the 2nd dose of the Covid vaccine. - Social history:: Patient/guardian denies using Smoking status: . ROS: 10:59 Constitutional: Positive for fatigue, malaise. jmm 10:59 Respiratory: Negative for cough, shortness of breath. 10:59 Abdomen/GI: Positive for abdominal pain, diarrhea. 10:59 MS/extremity: Positive for pain. 10:59 Skin: Positive for 10:59 All other systems are negative. Exam: 10:59 Head/Face: atraumatic. Eyes: EOMI, no conjunctival erythema appreciated ENT: Moist jmm Mucus Membranes Neck: Trachea midline, Supple Chest/axilla: Normal chest wall appearance and motion. Cardiovascular: Regular rate and rhythm. No edema appreciated Respiratory: Normal respirations, no respiratory distress appreciated Abdomen/GI: Non distended, soft Back: Normal ROM 10:59 Constitutional: The patient appears alert, awake, anxious, uncomfortable. 10:59 Musculoskeletal/extremity: Edema noted to the left knee, full range of motion appreciated without pain.. 10:59 Skin: Erythema and induration noted to the left great toe. 10:59 Neuro: Orientation: is normal, Mentation: is normal, Memory: is normal. 10:59 Psych: Behavior/mood is anxious, uncooperative. Vital Signs: 10:46 BP 127 / 83; Pulse 87; Resp 18; Temp 97.3; Pulse Ox 100% ; Weight 192.78 kg; Height 6 jh6 ft. 8 in. (203.20 cm); Pain 8/10; 11:50 BP 143 / 82; Pulse 92; Resp 17; Pulse Ox 100% on R/A; tw2 12:49 BP 133 / 68; Pulse 92; Resp 16; Pulse Ox 100% on R/A; tw2 16:09 BP 133 / 67; Pulse 97; Resp 18; Pulse Ox 94% on R/A; ld1 17:36 BP 140 / 62; Pulse 102; Resp 19; Pulse Ox 98% on R/A; ld1 18:43 BP 101 / 68; Pulse 100; Resp 18; Pulse Ox 92% on R/A; ld1 19:00 BP 116 / 60; Pulse 99; Resp 18; Pulse Ox 93% on R/A; vc1 20:30 BP 111 / 51; Pulse 96; Resp 18; Pulse Ox 94% on R/A; vc1 22:00 BP 116 / 61; Pulse 97; Resp 18; Pulse Ox 95% on R/A; vc1 10:46 Body Mass Index 46.69 (192.78 kg, 203.20 cm) 6 MDM: 10:59 Patient medically screened. namrata 15:08 Data reviewed: vital signs, nurses notes. Counseling: I had a detailed discussion with hemanth the patient and/or guardian regarding: the historical points, exam findings, and any diagnostic results supporting the discharge/admit diagnosis, lab results, the need for further work-up and treatment in the hospital. ED course: I discussed the patient with Dr. Nobles whom accepted the patient to his service. . 11/26 11:08 Order name: Basic Metabolic Panel; Complete Time: 12:07 [facility] 11/26 11:08 Order name: CBC with Diff; Complete Time: 12:07 [facility] 11/26 11:08 Order name: LFT's; Complete Time: 12:07 [facility] 11/26 11:08 Order name: Magnesium; Complete Time: 12:07 [facility] 11/26 11:08 Order name: NT PRO-BNP; Complete Time: 12:07 [facility] 11/26 11:08 Order name: PT-INR; Complete Time: 12:07 [facility] 11/26 11:08 Order name: Troponin HS; Complete Time: 12:07 [facility] 11/26 11:10 Order name: Procalcitonin; Complete Time: 12:45 [facility] 11/26 11:10 Order name: Lactate; Complete Time: 12:45 [facility] 11/26 11:10 Order name: Blood Culture Adult (2) [facility] 11/26 11:10 Order name: COVID-19/FLU A+B (Document "Date of Onset" if Symptomatic) [facility] 11/26 11:16 Order name: Glucose, Ancillary Testing; Complete Time: 11:17 [facility] 11/26 11:18 Order name: Uric Acid; Complete Time: 14:29 [facility] 11/26 18:00 Order name: Lactate Sepsis 2 HR Follow-up [facility] 11/26 11:08 Order name: XRAY Chest (1 view); Complete Time: 12:45 [facility] 11/26 11:08 Order name: EKG; Complete Time: 11:09 [facility] 11/26 11:08 Order name: Cardiac monitoring; Complete Time: 11:13 [facility] 11/26 11:08 Order name: EKG - Nurse/Tech; Complete Time: 11:13 [facility] 11/26 11:14 Order name: US Extremity Venous Unilateral Ltd; Complete Time: 12:45 [facility] 11/26 11:18 Order name: Knee Left 3 View XRAY; Complete Time: 12:45 [facility] 11/26 13:25 Order name: Abdomen 1 View (KUB) XRAY; Complete Time: 15:21 [facility] 11/26 11:08 Order name: IV Saline Lock; Complete Time: 11:34 [facility] 11/26 11:08 Order name: Labs collected and sent; Complete Time: 11:34 [facility] 11/26 11:08 Order name: O2 Per Protocol; Complete Time: : [facility] 11/26 11:08 Order name: O2 Sat Monitoring; Complete Time: [facility] Administered Medications: 1128 Drug: NS 0.9% 1000 ml Route: IV; Rate: 1 bolus; Site: right forearm; tw2 11:28 Drug: Zofran (Ondansetron) 4 mg Route: IVP; Site: right forearm; tw2 12:59 Follow up: Response: No adverse reaction tw2 11:30 Drug: morphine 4 mg {Note: RASS 0.} Route: IVP; Site: right forearm; tw2 12:59 Drug: NS 0.9% 1000 ml Route: IV; Rate: 1 bolus; Site: left forearm; tw2 13:20 Drug: Valium (diazepam) 5 mg Route: IVP; Site: right forearm; tw2 15:13 Follow up: Response: No adverse reaction tw2 15:00 Drug: morphine 4 mg Route: IVP; Site: right wrist; tw2 15:36 Drug: vancoMYCIN 1 grams Route: IVPB; Infused Over: 2 hrs; Site: right wrist; ld1 22:17 Follow up: IV Status: Completed infusion; IV Intake: 500ml vc1 Disposition Summary: 11/26/21 15:42 Hospitalization Ordered Hospitalization Status: Inpatient Admission [facility] Provider: Jj Nobles Condition: Stable [facility] Problem: an acute exacerbation jm Symptoms: are unchanged [facility] Bed/Room Type: Standard [facility] Location: Telemetry/MedSurg (Inpatient)(11/26/21 21:04) Room Assignment: 420(11/26/21 21:04) Diagnosis - Celllulitis of the Left Lower Leg [facility] Forms: - Medication Reconciliation Form [facility] - SBAR form [facility] Addendum: 11/29/2021 09:24 Co-signature as Attending Physician, Moreno Agee MD I agree with the assessment and c hitchcock plan of care. Signatures: Dispatcher [employer] EDMS Fanny Dominguez Martha, RN RN mw Anderson, Corey, MD MD cha Mickail, Joel, PA PA [facility] Bernei Paredes RN RN tw2 Sera Phan RN RN ld1 Rebeca Potter RN RN jh6 Latanya Dowd RN vc1 Corrections: (The following items were deleted from the chart) 11/26 13:24 13:13 Abdomen Pelvis W Con+CT.RAD.BRZ ordered. EDMS EDMS 17:44 15:42 Telemetry/MedSurg (Inpatient) [facility] bd 17:44 15:42 [facility] bd 21:04 17:44 [facility] ER HOLD bd mw 21:04 17:44 ERHOLD- bd mw
--- NOTE | 2021-11-26 16:35 | P.HP ---
Certification for Inpatient Patient admitted to: Inpatient With expected LOS: >2 Midnights Practitioner: I am a practitioner with admitting privileges, knowledge of patient current condition, hospital course, and medical plan of care. Services: Services provided to patient in accordance with Admission requirements found in Title 42 Section 412.3 of the Code of Federal Regulations Patient History Date of Service: 11/26/21 Reason for admission: Pain and swelling of left great toe History of Present Illness: 55-year-old gentleman with a history of diabetes bcuoejdf-eix-edcfbfe-dependent, morbid obesity, obstructive sleep apnea presented to the emergency department with a complaint of chronic nonhealing wound on the left great toe which has become more swollen red and painful. Patient reports inability to walk today because of the pain. He also reports generalized weakness, bouts of diarrhea over the last few days, last diarrhea episode was yesterday. Blood work in the ED shows hyponatremia, blood glucose of 214. Lactic acid is elevated, procalcitonin elevated, chest x-ray showed mild vascular congestion. Patient given a bolus of normal saline for elevated lactic acid and started on antibiotics. Patient with left great toe cellulitis and chronic wound. He stated he is being followed by Dr. Nunez-podiatry who is planning spur excision from that toe. Patient is admitted for further management. Allergies ciprofloxacin Allergy (Unknown, Verified 10/09/18 11:26) Hives/Rash Penicillins Adverse Reaction (Mild, Verified 10/09/18 11:26) Shortness of breath aspirin Adverse Reaction (Unknown, Verified 10/09/18 11:26) Shortness of breath propofol Adverse Reaction (Verified 10/09/18 11:26) over sedation symptoms,hard to wake up flu vaccine Adverse Reaction (Uncoded 10/09/18 11:26) extreme sore throat, chronic cough Home Medications: Amitriptyline HCl 100 mg PO DAILY 09/26/20 Cyclobenzaprine [Flexeril*] 20 mg PO BID 09/26/20 Empagliflozin [Jardiance] 25 mg PO DAILY 09/26/20 Ergocalciferol (Vitamin D2) [Vitamin D2] 1.25 mg PO SEECOM 09/26/20 Glimepiride [Amaryl*] 2 mg PO DAILY 09/26/20 Metformin HCl 1,000 mg PO BID 09/26/20 Multivitamin 2 tab PO DAILY 09/26/20 PARoxetine HCL [Paroxetine HCl] 20 mg PO DAILY 09/26/20 Potassium Chloride 1 tab PO DAILYPRN PRN 09/26/20 hydroCHLOROthiazide [Hydrochlorothiazide*] 12.5 mg PO DAILY 09/26/20 Ciprofloxacin HCl [Cipro 500 MG Tablet] 500 mg PO BID #20 tab 09/28/20 Codeine/APAP [Tylenol W/Codeine #3 tab] 1 tab PO Q6HP PRN #20 tab 09/28/20 Mupirocin Oint [Bactroban 2% Ointment*] 1 appl TOP BID #1 tube 09/28/20 Smz./Tmp. [Bactrim Ds 800 MG/160 MG] 1 tab PO BID #20 tab 09/28/20 - Past Medical/Surgical History Diabetic: Yes -: Hypertension -: Peripheral vascular disease -: Diabetes mellitus type 2 -: Morbid obesity -: Hyperlipidemia -: Depression -: Obstructive sleep apnea -: Cirrhosis -: Diabetic neuropathy -: Venous insufficiency -: Gastric bypass -: Bilateral knee surgery -: "venous reflux" had small veins closed "years ago" Psychosocial/ Personal History: The patient lives with his brother. He has no children. He is disabled. - Family History Father -: Hypertension, Stroke - Social History Alcohol use: No CD- Drugs: No Caffeine use: No Review of Systems Other: Except as documented, all other systems reviewed and negative. Physical Examination - Physical Exam General: Alert, In no apparent distress, Oriented x3, Obese HEENT: PERRLA, Mucous membr. moist/pink, Sclerae nonicteric Neck: Supple, JVD not distended Respiratory: Clear to auscultation bilaterally, Normal air movement Cardiovascular: Regular rate/rhythm, Normal S1 S2, No murmurs, Edema (1+ bilateral lower extremity pitting edema) Capillary refill: <2 Seconds Gastrointestinal: Normal bowel sounds, Soft and benign, Non-distended, No tenderness Musculoskeletal: Other (Right great toe is swollen, erythematous, has callus covered wound on the plantar aspect, blisters on the dorsum) Integumentary: No cyanosis, Tenderness/swelling (Left great toe), Erythema (Left great toe) Neurological: Normal speech, Normal strength at 5/5 x4 extr, Cranial nerves 3-12 intact Lymphatics: No axilla or inguinal lymphadenopathy - Studies Laboratory Data (last 24 hrs) 11/26/21 11:28: Uric Acid 5.4 D 11/26/21 11:28: PT 15.1 H, INR 1.31 11/26/21 11:28: WBC 5.10 D, Hgb 15.3, Hct 45.6, Plt Count 52 L D 11/26/21 11:28: Sodium 130 L, Potassium 3.3 L, BUN 16, Creatinine 1.07, Glucose 214 H, Magnesium 1.9, Total Bilirubin 2.6 H, AST 102 H, ALT 70, Alkaline Phosp hatase 82 Assessment and Plan - Problems (Diagnosis) (1) Cellulitis and abscess of toe of left foot Current Visit: Yes Status: Acute (2) Hyponatremia Current Visit: Yes Status: Acute (3) Lactic acidosis Current Visit: Yes Status: Acute (4) Diabetic foot ulcer Current Visit: No Status: Acute (5) Type 2 diabetes mellitus Onset Date: 11/19/16 Current Visit: No Status: Acute (6) Morbid obesity Current Visit: No Status: Chronic (7) Obstructive sleep apnea Onset Date: 05/07/18 Current Visit: No Status: Suspected - Plan Admit patient to the medical floor. Hydrate briefly with IV normal at a slow rate in the context of pulmonary vascular congestion on the chest x-ray. Start broad-spectrum antibiotic-IV cefepime and vancomycin Follow blood cultures obtained in the ED. Consulted general surgery for wound debridement, incision and drainage or excision as needed. Wound care team also consulted. Pain management as needed PT consult. Insulin sliding scale for glucose management. ADA diet. - Advance Directives Does patient have a Living Will: No Does patient have a Durable POA for Healthcare: No
[2021-11-26 17:38] LABS: SARS-COV-2 RT PCR NEGATIVE (NEGATIVE)
[2021-11-26] MEDS ORDERED: VANCOMYCIN 1 GM in NA CHLORIDE 0.9% 250 ML IVPB ONE (23:00)
[2021-11-26] MEDS ORDERED: ONDANSETRON 4 MG/2 ML VIAL IV PRN (23:05)
[2021-11-26] MEDS ORDERED: VANCOMYCIN 1 GM in NA CHLORIDE 0.9% 250 ML IVPB SCH (23:05)
[2021-11-26] MEDS ORDERED: MORPHINE 2 MG/ML SYR IV PRN (23:05)
[2021-11-26 23:08] VITALS: BMI 46.6
[2021-11-27] MEDS: CEFEPIME 1 GM in NA CHLORIDE 0.9% 100 ML IV SCH ×3 (00:02→21:47)
[2021-11-27] MEDS: NA CHLORIDE 0.9% 1,000 ML IV SCH ×2 (00:03→12:27)
[2021-11-27] MEDS: INSULIN -REGULAR HUMAN 50 UNIT/0.5 ML ML SQ SCH ×5 (00:04→21:00)
[2021-11-27 04:02] LABS: Hematocrit 37.4 % (39.6-49.0); Lymphocytes % 18.2 % (15.3-44.8); MPV 10.6 fL (7.6-11.3); RBC Red Blood Cell Count 4.08 M/uL (4.33-5.43)
[2021-11-27 04:20] LABS: BUN Blood Urea Nitrogen 16 mg/dL (7-18); Bicarbonate 24 mmol/L (21-32); Glucose Level 190 mg/dL (74-106); Magnesium 2.1 mg/dL (1.8-2.4); Phosphorus 1.4 mg/dL (2.5-4.9); Sodium Level 134 mmol/L (136-145)
[2021-11-27 04:52] LABS: Blood Morphology Comment NOT SEEN (NOT SEEN); Platelet Estimate DECR
[2021-11-27 05:10] LABS: Urine Appearance CLOUDY (Clear); Urine Bilirubin NEGATIVE (Negative); Urine Blood NEGATIVE (Negative); Urine Color DK YELLOW (Yellow); Urine Glucose NEGATIVE (Negative); Urine Protein TRACE (Negative); Urine Specific Gravity 1.015 (1.005-1.030)
[2021-11-27 05:13] LABS: Urine Microscopic Reflex ORDER UMIC
[2021-11-27 05:22] LABS: Urine Bacteria <20 /HPF (NONE SEEN); Urine RBC NONE SEEN /HPF (NONE SEEN); Urine Urothelial Cells <5 /HPF (NONE SEEN)
[2021-11-27] MEDS ORDERED: POTASSIUM CL SA 10 MEQ TAB PO ONE ×3 (06:25→07:16)
--- NOTE | 2021-11-27 06:39 | P.PN ---
Date of Service: 11/27/21 Subjective: Left knee swelling and pain, unable to get up from toilet this morning Feels like he cannot bear his own weight on that left knee Reports 2 episodes of diarrhea overnight, started few days before admission ROS: 10 point ROS as noted above, otherwise negative Physical exam GEN: Alert, oriented, appears uncomfortable, on toilet HEENT: Normal conjunctiva, sclera anicteric CV: Regular rate and rhythm, b/l lower extremity edema L>R Pulm: Nonlabored respirations on room air ABD: Soft, nontender, nondistended MSK: L knee, +effusion, warm, tendern Integumentary: L foot: toe wrapped in dressing, c/d/i Neuro: Normal speech, normal affect Problem List Cellulitis and abscess of L great toe Diabetes mellitus type 2 Hyponatremia Lactic acidosis Morbid obesity Left knee effusion, pain Morbid obesity Obstructive sleep apnea Thrombocytopenia, chronic Continue empiric antibiotics, IV cefepime and vancomycin Follow-up blood cultures obtained in the ED General surgery consulted, for wound debridement if needed Wound care consulted Pain medication as needed Physical therapy consulted Patient with swollen and tender left knee, possibility of septic knee Orthopedic surgery consulted Insulin sliding scale Continue diabetic diet Chronic thrombocytopenia, appears around baseline Continue VTE prophylaxis Code: full Dispo: home, anticipate dc in ~2 days Time Spent Managing Pts Care (In Minutes): 35
[2021-11-27] MEDS ORDERED: INFLUENZA VACCINE (for 6+ mo) 0.5 ML DOSE IMVAC ONE (08:00)
[2021-11-27] MEDS: VANCOMYCIN 2 GM in NA CHLORIDE 0.9% 500 ML IV SCH ×2 (08:52→21:48)
[2021-11-27] MEDS ORDERED: ENOXAPARIN 40 MG/0.4 ML SQ SCH (09:00)
[2021-11-27 09:07] VITALS: O2SAT 97
--- NOTE | 2021-11-27 09:13 | EKG ---
Test Date: 2021-11-26 Test Time: 11:12:50 Process Automation Engineer: VITA MEASUREMENT RESULTS: Intervals: Rate: 91 OH: 150 QRSD: 106 QT: 374 QTc: 460 [place]: P: 22 OH: 150 QRS: 28 T: 76 INTERPRETIVE STATEMENTS: Sinus rhythm with frequent premature ventricular complexes Nonspecific ST abnormality Abnormal ECG Compared to ECG 09/25/2020 19:03:54 No significant changes Electronically Signed On 11-27-21 09:09:24 [employer]SEM[employer] by Josef Chanel
[2021-11-27] MEDS: LOPERAMIDE HCL 2 MG CAPSULE PO PRN (16:17)
[2021-11-27] MEDS: MORPHINE 4 MG/ML SYR IV PRN (16:17)
[2021-11-27] MEDS: ACETAMINOPHEN 500 MG TAB PO PRN (16:19)
--- NOTE | 2021-11-27 19:13 | CON ---
Date of Consultation: 11/27/2021 Reason For Consultation: Wound, left great toe, and cellulitis. History Of Present Illness: Patient is a 55-year-old gentleman with multiple medical problems, who w as admitted yesterday because of pain in his left knee, inability to walk and a nonhealing wound on h is left great toe which has become more swollen, red and painful. He was admitted and workup was don diomedes and I was consulted. He is awake, alert, states that he has seen a Implementation Director Dr. Nunez, who was joi orozco on doing excision of a spur from that toe as an outpatient. He denies any sore throat, runny nose, cough, headaches, or dizziness. No chest pain. No fever or chills. Did have some diarrhea o ron the last few days. Review of Systems: Otherwise, unremarkable. Past Medical History: Hypertension, peripheral vascular disease, diabetes type 2, morbid obesity, hy perlipidemia, obstructive sleep apnea, depression, cirrhosis, diabetic neuropathy, venous insufficien cy. Past Surgical History: Bilateral knee surgery. Gastric bypass. Venous reflux. Allergies: REVIEWED INCLUDE PENICILLIN, CIPRO, ASPIRIN, PROPOFOL, FLU VACCINE. Social History: Patient denies smoking or drinking. Family History: Significant for hypertension and stroke. Physical Examination: Vital Signs: Currently, afebrile. His vital signs are stable. General: He is awake, alert, and oriented x3. Head and Neck: Cranial nerves 2 through 12 are grossly within normal limits. No neck masses. No JV D. Throat clear. Neck is supple. Chest: Clear. Heart: S1, S2. Abdomen: Soft. Extremities: Diminished dorsalis pedis and posterior tibial pulses. Left knee is swollen, tender. There is slight warmth to it, but there is no redness. On the left great toe, there is a wound appro ximately 3 x 2 cm which is mostly partial thickness with minimal fibrin present on where the granulat ion tissue was present, and the granulation tissue are both medially and laterally present, small are as. There is some edema and erythema on the forefoot consistent with cellulitis. Laboratory Data: Reviewed. His white count is 5.4, H and H is 12.9 and 37.4, platelets are 46, band neutrophil is 17. His INR is 1.31. Chemistry reviewed as well and a lactic acid was 3.8 on admissi on, and prior to that, it was 3.4. His procalcitonin is 1.56. Knee x-ray reviewed. No acute osseou s abnormality involving the left knee. Venous study reviewed. No DVT. Assessment: A 55-year-old gentleman with multiple medical problems with the cellulitis and wound of the left foot and specifically the great toe and also left knee painful swelling. Recommendations: Continue IV antibiotics as ordered. I would recommend workup of the knee, possibly getting orthopedic consultation and [employer] for the dressing changes on the left great toe. I can follow the patient as an outpatient for the wound care. No need for any acute surgical intervention at this time. Medicare discussed with Dr. Lanza. RENATA/MARIANA Voice ID: [id number] Report ID: [id number]
[2021-11-27] MEDS: APIXABAN 2.5 MG TABLET PO SCH (21:00)
[2021-11-27] MEDS ORDERED: VANCOMYCIN 1 GM/VIAL ONE (21:27)
[2021-11-28 03:56] LABS: Absolute Lymphocytes (CBC) 0.9 K/uL (0.7-4.9); Hematocrit 38.4 % (39.6-49.0); Lymphocytes % 15.2 % (15.3-44.8); MPV 10.1 fL (7.6-11.3); RBC Red Blood Cell Count 4.14 M/uL (4.33-5.43)
[2021-11-28 04:18] LABS: ALT/SGPT 46 U/L (12-78); AST/SGOT 62 U/L (15-37); Albumin 2.4 g/dL (3.4-5.0); Alkaline Phosphatase 65 U/L (45-117); BUN Blood Urea Nitrogen 12 mg/dL (7-18); Bicarbonate 24 mmol/L (21-32); Bilirubin Total 3.1 mg/dL (0.2-1.0); Glucose Level 180 mg/dL (74-106); Magnesium 1.9 mg/dL (1.8-2.4); Potassium 3.1 mmol/L (3.5-5.1); Protein, Total 6.9 g/dL (6.4-8.2); Sodium Level 134 mmol/L (136-145)
--- NOTE | 2021-11-28 04:49 | CON ---
Date of Consultation: 11/27/2021 History Of Present Illness: This is my first time seeing this patient to my knowledge. He is a 55-y ear-old gentleman, who has a history of diabetes and unfortunately was admitted through the emergency department with diagnosis of infected left great toe with cellulitis. I am called as apparently he says on Friday, his left knee started hurting and has now become so painful, very difficult for him t o even walk. The hospitalist noticed an effusion, also he does have a white shift as well as blood c ultures, which show a final report of gram-positive cocci in pairs and chains, and there was concern for left knee septic arthritis. Review of the x-rays revealed quite severe degenerative arthritis of the knee including all 3 compartments, primarily at the medial and patellofemoral joints. Physical Examination: On physical examination, he does have his knee flexed, but he cannot come to full extension. He can maintain a straight leg raise. He is stable to varus and valgus stress at both 0 and 20 degrees. He does have a 1 to 2+ effusion, but there is no significant erythema and very gentle range of motion d oes not appear to cause any undue pain other than that associated with the effusion and does not appe ar to be consistent with septic arthritis. Assessment And Plan: I will speak with Dr. Lanza. Obviously, you can develop septic arthritis, but at this point, I do not believe that it is something that would benefit from operative intervention b ased on clinical examination. Obviously, if it worsens and becomes more painful and erythematous, he would need to be re-evaluated; however, operative intervention is indicated for septic arthritis, wh ich at this time, I do not believe is indicated. Also the infection of the foot can account for the white shift as well as the blood cultures. He is currently being treated by General Surgery for the toe. I would suggest anti-inflammatories and possibly icing. Continue range of motion. SE/MODL Voice ID: [id number] Report ID: [id number]
[2021-11-28] MEDS ORDERED: KCL 20 MEQ/100 mL IVPB 20 MEQ/100 ML BAG IV SCH (05:00)
[2021-11-28] MEDS: MORPHINE 4 MG/ML SYR IV PRN ×3 (05:11→18:49)
[2021-11-28] MEDS: ACETAMINOPHEN 500 MG TAB PO PRN (05:12)
--- NOTE | 2021-11-28 06:47 | P.PN ---
Date of Service: 11/28/21 Subjective: improved, able to ambulate better, knee not as swollen this morning later in afternoon in more pain no new symptoms ROS: 10 point ROS as noted above, otherwise negative Physical exam GEN: Alert, oriented, appears uncomfortable HEENT: Normal conjunctiva, sclera anicteric CV: Regular rate and rhythm, trace b/l lower extremity edema L>R Pulm: Nonlabored respirations on room air ABD: Soft, nontender, nondistended MSK: L knee, +effusion, tender Integumentary: L foot: toe wrapped in dressing, c/d/i Neuro: Normal speech, normal affect Problem List Cellulitis and abscess of L great toe Diabetes mellitus type 2 Hyponatremia Lactic acidosis Morbid obesity Left knee effusion, pain Morbid obesity Obstructive sleep apnea Thrombocytopenia, chronic Continue empiric antibiotics, IV cefepime and vancomycin Follow-up blood cultures obtained in the ED - gram positive 10/02; ID consulted General surgery consulted, no surgical intervention Wound care consulted Pain medication as needed Physical therapy consulted Orthopedic surgery consulted - unlikely septic, suspect osteoarthritis Insulin sliding scale Continue diabetic diet Chronic thrombocytopenia, appears around baseline Continue VTE prophylaxis Code: full Dispo: home, anticipate dc in ~1-2 days Time Spent Managing Pts Care (In Minutes): 35
[2021-11-28] MEDS: INSULIN -REGULAR HUMAN 50 UNIT/0.5 ML ML SQ SCH ×4 (07:30→21:01)
[2021-11-28] MEDS: VANCOMYCIN 2 GM in NA CHLORIDE 0.9% 500 ML IV SCH ×2 (08:49→21:01)
[2021-11-28] MEDS: CEFEPIME 2 GM in NA CHLORIDE 0.9% 100 ML IV SCH ×2 (08:49→16:53)
[2021-11-28] MEDS: APIXABAN 2.5 MG TABLET PO SCH ×2 (08:50→21:01)
[2021-11-28] MEDS: LOPERAMIDE HCL 2 MG CAPSULE PO PRN (08:50)
[2021-11-28] MEDS: MEDIHONEY 44 ML TOPICAL TUBE TOP SCH (08:51)
--- NOTE | 2021-11-28 11:05 | PN ---
Date of Progress Note: 11/28/2021 Subjective: The patient is awake, alert. Feels a little better. He is able to ambulate around the ED today. He was evaluated by Dr. Cleaning. We do not feel any intervention was necessary at this point. His vitals are stable. He is afebrile. Blood cultures are still pending for sensitivities. Objective: Vital Signs: Stable. He is afebrile. Extremities: There is decreasing swelling and redness of the left lower extremity. The wound is daniela an, dry, and intact. Assessment: Left great toe wound with cellulitis and knee pain as well as positive blood cultures. Recommendations: Check blood cultures and adjust antibiotics accordingly. Based on that, the patien t may require at least 10 days to 14 days of IV antibiotics. If they are positive, consideration renee uld be given to either a PICC line or midline soon so we can have discharge planning arranged for the patient and no need for any surgical intervention at this time. We will follow this patient while i n the hospital. RENATA/MARIANA Voice ID: [id number] Report ID: [id number]
--- NOTE | 2021-11-28 12:45 | P.CNS ---
Date of Consult: 11/28/21 Chief Complaint: Pain and swelling of left great toe History of Present Illness: The patient is a, cirrhosis, morbid obesity, peripheral vascular disease, and obstructive sleep apnea who presented to the emergency department secondary to left knee pain, diarrhea, nausea, vomiting, and dizziness. Patient states that his symptoms started a few days prior to admission, states he recently started a new diabetic medication (rybelsus) and believes these could be side effects of the medication. Of note patient also has a chronic nonhealing left great hallux diabetic ulcer. Wound has been there for approximately 3 years, patient has seen multiple podiatrists for care of the ulcer. Currently seeing Dr. Nunez. Per patient Dr. Nunez plans to excise a bone spur on the toe outpatient. Infectious disease has been consulted to manage patient's antibiotic regimen. Patient currently on broad-spectrum IV antibiotics with vancomycin and cefepime. Blood cultures obtained on 11/26 grew coagulase negative staph in 1 out of 4 bottles, repeat obtained on 11/28 pending. Urine culture obtained on 11/26 also pending, urine analysis was a dirty sample. Patient currently reports diarrhea, nausea, and left knee pain. Denies shortness of breath or chest pain. Allergies ciprofloxacin Allergy (Unknown, Verified 10/09/18 11:26) Hives/Rash Penicillins Adverse Reaction (Mild, Verified 10/09/18 11:26) Shortness of breath aspirin Adverse Reaction (Unknown, Verified 10/09/18 11:26) Shortness of breath propofol Adverse Reaction (Verified 10/09/18 11:26) over sedation symptoms,hard to wake up flu vaccine Adverse Reaction (Uncoded 10/09/18 11:26) extreme sore throat, chronic cough Home Medications: Amitriptyline HCl 100 mg PO DAILY 09/26/20 Empagliflozin [Jardiance] 25 mg PO DAILY 09/26/20 Ergocalciferol (Vitamin D2) [Vitamin D2] 1.25 mg PO SEECOM 09/26/20 Glimepiride [Amaryl*] 2 mg PO DAILY 09/26/20 Metformin HCl 1,000 mg PO BID 09/26/20 Multivitamin 2 tab PO DAILY 09/26/20 PARoxetine HCL [Paroxetine HCl] 20 mg PO DAILY 09/26/20 Potassium Chloride 1 tab PO DAILYPRN PRN 09/26/20 hydroCHLOROthiazide [Hydrochlorothiazide*] 12.5 mg PO DAILY 09/26/20 L.acidoph,Paracasei, B.lactis [Probiotic] 1 tab PO DAILY 11/27/21 Mecobalamin [B12 Active] 1 tab PO DAILY 11/27/21 lisinopriL [Lisinopril] 1 tab PO DAILY 11/27/21 - Past Medical/Surgical History Diabetic: Yes -: Hypertension -: Peripheral vascular disease -: Diabetes mellitus type 2 -: Morbid obesity -: Hyperlipidemia -: Depression -: Obstructive sleep apnea -: Cirrhosis -: Diabetic neuropathy -: Venous insufficiency -: Gastric bypass -: Bilateral knee surgery -: "venous reflux" had small veins closed "years ago" Psychosocial/ Personal History: The patient lives with his brother. He has no children. He is disabled. - Family History Father Medical History: Hypertension, Stroke - Social History Smoking Status: Unknown if ever smoked Alcohol use: No CD- Drugs: No Caffeine use: No Review of Systems 10-point ROS is otherwise unremarkable Physical Examination Temp Pulse Resp BP Pulse Ox 97.6 F 75 16 139/73 93 11/28/21 11:49 11/28/21 11:49 11/28/21 11:49 11/28/21 11:49 11/28/21 11:49 General: Obese HEENT: Atraumatic, Other (Poor dentition, missing several teeth) Neck: Supple Respiratory: Clear to auscultation bilaterally, Normal air movement Cardiovascular: Regular rate/rhythm, Normal S1 S2 Gastrointestinal: Hypoactive, Soft and benign Integumentary: Other (Bilateral lower extremity stasis dermatitis. Chronic left great toe diabetic ulcer: No clinical signs of infection, no pus/foul odor, however periwound tissue is erythematous/swollen. Base of wound shows healthy viable tissue.) Conclusions/Impression: Antibiotics: Vancomycin: urrent Cefepime: 11/26current Assessment/plan Chronic nonhealing left great toe diabetic ulcer Continue current wound care: Medihoney and wrap with gauze Recommend obtaining imaging to assess for osteomyelitis -Can continue with IV antibiotics for duration of hospital stay, can send patient home on oral Bactrim Left knee pain Clinically area looks normal X-ray showed no osseous abnormality Positive blood culture Initial blood cultures obtained on 11/26 grew coagulase-negative staph in 1 of 4 bottles, repeat obtained on 11/28 pending. Recommend continuing vancomycin until repeat cultures are obtained. However likely contamination. Diabetes -Continue strict glucose control -Strict glucose control needed for proper wound healing Cirrhosis Continue to monitor thrombocytopenia Medical management per primary team Plan of care discussed with Dr. Long Thank for consultation
[2021-11-28] MEDS ORDERED: NA CHLORIDE 0.9% 1,000 ML ONE (21:09)
[2021-11-29] MEDS: CEFEPIME 2 GM in NA CHLORIDE 0.9% 100 ML IV SCH ×2 (01:44→08:31)
[2021-11-29] MEDS: MORPHINE 4 MG/ML SYR IV PRN ×4 (01:47→21:13)
[2021-11-29] MEDS ORDERED: NA CHLORIDE 0.9% 1,000 ML ONE (05:09)
--- NOTE | 2021-11-29 06:37 | P.PN ---
Date of Service: 11/29/21 Subjective: No acute events overnight No longer having diarrhea Continues with intermittent left knee pain Exceeds the weight limit for our CT/MRI scans ROS: 10 point ROS as noted above, otherwise negative Physical exam GEN: Alert, oriented, appears uncomfortable HEENT: Normal conjunctiva, sclera anicteric CV: Regular rate and rhythm, trace b/l lower extremity edema L>R Pulm: Nonlabored respirations on room air ABD: Soft, nontender, nondistended MSK: L knee, +effusion, tender Integumentary: L foot: toe wrapped in dressing, c/d/i Neuro: Normal speech, normal affect Problem List Cellulitis and abscess of L great toe staph bacteremia Diabetes mellitus type 2 Hyponatremia Lactic acidosis Morbid obesity Left knee effusion, pain Morbid obesity Obstructive sleep apnea Thrombocytopenia, chronic Continue empiric antibiotics, IV cefepime and vancomycin Follow-up blood cultures obtained in the ED - gram positive 12/31; ID consulted Would like to obtain further imaging of left toe given chronicity, concern for o steomyelitis. echo ordered PICC ordered, needs minimum ~2 weeks of IV antibiotics no clinical features for endocarditis at this time, low suspicion. TTE ordered General surgery consulted, no surgical intervention, s/p bedside debridement Wound care consulted Pain medication as needed Physical therapy consulted Orthopedic surgery consulted - unlikely septic knee, suspect osteoarthritis Insulin sliding scale Continue diabetic diet Chronic thrombocytopenia, appears around baseline Continue VTE prophylaxis Code: full Dispo: possible LTAC candidate with ongoing pain, wound care, IV antibiotics Exceeds the weight limit for scanners, would be able to get a KEISHA if needed at LTAC, possibly CT/MRI Time Spent Managing Pts Care (In Minutes): 35
[2021-11-29 07:45] LABS: Absolute Lymphocytes (CBC) 0.9 K/uL (0.7-4.9); Hematocrit 38.4 % (39.6-49.0); Lymphocytes % 17.8 % (15.3-44.8); MPV 9.8 fL (7.6-11.3); RBC Red Blood Cell Count 4.14 M/uL (4.33-5.43)
[2021-11-29 07:59] LABS: BUN Blood Urea Nitrogen 9 mg/dL (7-18); Bicarbonate 23 mmol/L (21-32); Glucose Level 202 mg/dL (74-106); Magnesium 2.1 mg/dL (1.8-2.4); Potassium 3.2 mmol/L (3.5-5.1); Sodium Level 135 mmol/L (136-145)
[2021-11-29] MEDS: VANCOMYCIN 2 GM in NA CHLORIDE 0.9% 500 ML IV SCH (08:32)
[2021-11-29] MEDS: APIXABAN 2.5 MG TABLET PO SCH ×2 (08:32→21:10)
[2021-11-29] MEDS: INSULIN -REGULAR HUMAN 50 UNIT/0.5 ML ML SQ SCH ×4 (08:33→21:11)
[2021-11-29] MEDS: MEDIHONEY 44 ML TOPICAL TUBE TOP SCH (08:33)
--- NOTE | 2021-11-29 09:24 | PN ---
Date of Progress Note: 11/28/2021 Subjective: I see him today. He is sitting on the bedside. He has a knee flexed to 90 degrees. He still does have 1+ effusion. There is no erythema of the knee. Gentle range of motion of the knee does not cause pain. He says he does have difficulty with heavy blankets on his knees, also difficul t for him to bear weight. Assessment: I believe that this is most likely reflective of an arthritic flare, which hopefully can be treated medically with no current signs for any kind of septic joint even with re-evaluation and at this time, I have spoken with PCP regarding possibility of drainage and corticosteroid injection; however, given his other medical situation, most likely we will at least to leave that to see if he c an do well on his own. I will be asking the hospitalist to call me with any other need for intervent ion at least while he is an inpatient. Otherwise, we can see him as an outpatient once his medical s tatus has improved. /MARIANA Voice ID: [id number] Report ID: [id number]
--- NOTE | 2021-11-29 09:36 | PN ---
Date of Progress Note: 11/29/2021 Subjective: The patient is awake, alert. Still has swelling in his knee. He says pain is slowly im proving. The redness is improving as well. Vitals were stable. He is afebrile. His blood cultures growing out Staph aureus, sensitive to vancomycin. Objective: Physical exam shows decreasing erythema. Wound is essentially unchanged and there is sti ll effusion in the left knee. Assessment: Septicemia secondary to infected wound, cellulitis, and left knee pain. Recommendations: Continue IV antibiotics and wound care as ordered. The patient will need a PICC li me, at least 10-14 days of IV antibiotics after he is discharged. He will follow up in the [facility] after discharge for wound care. /MODL Voice ID: [id number] Report ID: [id number]
--- NOTE | 2021-11-29 11:08 | P.PN ---
Subjective Date of Service: 11/29/21 Chief Complaint: Pain and swelling of left great toe Patient seen and examined at bedside, still complaining of left knee pain. States pain is worse with flexion/extension and with lateral palpation. Patient states that he is able to ambulate short distances such as to the bathroom h owever is not able to bend the knee. Review of Systems 10-point ROS is otherwise unremarkable Physical Examination - Vital Signs Temperature: 98.6 F Blood Pressure: 122/59 Pulse: 82 Respirations: 18 Pulse Ox (%): 94 - Studies Laboratory Last Values WBC 5.10 K/uL (4.3-10.9) D 11/26/21 11:28 RBC 4.91 M/uL (4.33-5.43) 11/26/21 11:28 Hgb 15.3 g/dL (13.6-17.9) 11/26/21 11:28 Hct 45.6 % (39.6-49.0) 11/26/21 11:28 MCV 92.9 fL (80-100) 11/26/21 11:28 MCH 31.2 pg (27.0-35.0) 11/26/21 11:28 MCHC 33.6 g/dL (32.0-36.0) 11/26/21 11:28 RDW 15.6 % (12.1-15.2) H 11/26/21 11:28 Plt Count 52 K/uL (152-406) L D 11/26/21 11:28 MPV 9.9 fL (7.6-11.3) 11/26/21 11:28 Neutrophils % 66.6 % (41.7-73.7) 11/26/21 11:28 Lymphocytes % 15.4 % (15.3-44.8) 11/26/21 11:28 Monocytes % 17.4 % (3.3-12.3) H 11/26/21 11:28 Eosinophils % 0.0 % (0-4.4) 11/26/21 11:28 Basophils % 0.6 % (0-1.3) 11/26/21 11:28 Absolute Neutrophils 3.4 K/uL (1.8-8.0) 11/26/21 11:28 Absolute Lymphocytes 0.8 K/uL (0.7-4.9) 11/26/21 11:28 Absolute Monocytes 0.9 K/uL (0.1-1.3) 11/26/21 11:28 Absolute Eosinophils 0.0 K/uL (0-0.5) 11/26/21 11:28 Absolute Basophils 0.0 K/uL (0-0.5) 11/26/21 11:28 PT 15.1 SECONDS (9.5-12.5) H 11/26/21 11:28 INR 1.31 11/26/21 11:28 Sodium 130 mmol/L (136-145) L 11/26/21 11:28 Potassium 3.3 mmol/L (3.5-5.1) L 11/26/21 11:28 Chloride 99 mmol/L (98-107) 11/26/21 11:28 Carbon Dioxide 23 mmol/L (21-32) 11/26/21 11:28 BUN 16 mg/dL (7-18) 11/26/21 11:28 Creatinine 1.07 mg/dL (0.55-1.3) 11/26/21 11:28 Estimated GFR 72 mL/min (=/>90) L 11/26/21 11:28 Glucose 214 mg/dL (74-106) H 11/26/21 11:28 POC Glucose 193 mg/dL (65-120) H 11/26/21 10:56 Lactic Acid 3.4 mmol/L (0.4-2.0) H 11/26/21 11:28 Uric Acid 5.4 mg/dL (3.5-7.2) D 11/26/21 11:28 Calcium 8.5 mg/dL (8.5-10.1) 11/26/21 11:28 Magnesium 1.9 mg/dL (1.8-2.4) 11/26/21 11:28 Total Bilirubin 2.6 mg/dL (0.2-1.0) H 11/26/21 11:28 Direct Bilirubin 0.8 mg/dL (0-0.2) H 11/26/21 11:28 AST 102 U/L (15-37) H 11/26/21 11:28 ALT 70 U/L (12-78) 11/26/21 11:28 Alkaline Phosphatase 82 U/L (45-117) 11/26/21 11:28 Troponin I High Sens 49.10 pg/mL (<58.9) 11/26/21 11:28 NT-Pro-B Natriuret Pep 228 pg/mL (<125) H 11/26/21 11:28 Serum Total Protein 8.1 g/dL (6.4-8.2) 11/26/21 11:28 Albumin 3.1 g/dL (3.4-5.0) L 11/26/21 11:28 Globulin 5.0 g/dL (2.3-3.5) H 11/26/21 11:28 Albumin/Globulin Ratio 0.6 (1.1-1.8) L 11/26/21 11:28 Procalcitonin 1.56 ng/mL (<0.050) H 11/26/21 11:28 Urine Color Dk yellow (Yellow) 11/26/21 04:50 Urine Appearance Cloudy (Clear) 11/26/21 04:50 Urine pH 6.0 (5.0-7.0) 11/26/21 04:50 Ur Specific [place] 1.015 (1.005-1.030) 11/26/21 04:50 Glucose (UA)(Auto) Negative (Negative) 11/26/21 04:50 Urine Ketones Trace (Negative) H 11/26/21 04:50 Urine Blood Negative (Negative) 11/26/21 04:50 Urine Nitrite Negative (Negative) 11/26/21 04:50 Urine Bilirubin Negative (Negative) 11/26/21 04:50 Urine Urobilinogen 1.0 mg/dL (0.2-1.0) 11/26/21 04:50 Ur Leukocyte Esterase 1+ (Negative) H 11/26/21 04:50 Urine RBC None seen /HPF (NONE SEEN) 11/26/21 04:50 Urine WBC 20-50 /HPF (<5) H 11/26/21 04:50 Ur Squamous Epith Cells 5-10 /HPF (NONE SEEN) H 11/26/21 04:50 Ur Urothelial Cells <5 /HPF (NONE SEEN) 11/26/21 04:50 Urine Bacteria <20 /HPF (NONE SEEN) 11/26/21 04:50 Urine Culture Reflexed Reflexed 11/26/21 04:50 Urine Total Protein Trace (Negative) H 11/26/21 04:50 Influenza Type A RNA Negative (NEGATIVE) 11/26/21 11:10 Influenza Type B RNA Negative (NEGATIVE) 11/26/21 11:10 SARS-CoV-2 RNA (RT-PCR) Negative (NEGATIVE) 11/26/21 11:10 Microbiology Data (last 24 hrs): 11/26/21 11:40 Blood - Blood Blood Culture Gram Stain - Final 11/26/21 11:40 Blood - Blood Gram Stain - Final 11/26/21 11:20 Blood - Blood Blood Culture Gram Stain - Final 11/26/21 11:20 Blood - Blood Gram Stain - Final Assessment And Plan - Plan General: Obese HEENT: Atraumatic, Other (Poor dentition, missing several teeth) Neck: Supple Respiratory: Clear to auscultation bilaterally, Normal air movement Cardiovascular: Regular rate/rhythm, Normal S1 S2 Gastrointestinal: Hypoactive, Soft and benign Integumentary: Other (Bilateral lower extremity stasis dermatitis. Chronic left great toe diabetic ulcer: No clinical signs of infection, no pus/foul odor, however periwound tissue is erythematous/swollen. Base of wound shows healthy viable tissue.) Conclusions/Impression: Antibiotics: cefazolin: 11/29-current Cefepime: Vancomycin: Assessment/plan Bacteremia -Blood cultures obtained on 11/26 growing gram-positive cocci in 4 out of 4 bottles, only 1 bottle has speciated as methicillin susceptible Staph aureus. Vancomycin discontinued and beta-lactam antibiotic (cefazolin) started. -Repeat blood cultures obtained on 11/28 pending. -Transthoracic echocardiogram pending. -Possible source of infection includes: Left great toe diabetic ulcer versus infectious process of left knee Chronic nonhealing left great toe diabetic ulcer Continue current wound care: Medihoney and wrap with gauze Recommend obtaining imaging to assess for osteomyelitis -Can continue with IV antibiotics for duration of hospital stay, can send patient home on oral Bactrim Left knee pain Clinically area looks normal X-ray showed no osseous abnormality -Due to patient's stature/body habitus unable to perform CT/MRI Diabetes -Continue strict glucose control -A1c pending -Strict glucose control needed for proper wound healing Cirrhosis Continue to monitor thrombocytopenia Medical management per primary team Plan of care discussed with Dr. Long Thank for consultation
[2021-11-29] MEDS: CEFAZOLIN/SWI 2gm 2 GM/20 ML SYR IV SCH ×2 (12:46→16:13)
[2021-11-29] MEDS: LOPERAMIDE HCL 2 MG CAPSULE PO PRN (12:48)
--- NOTE | 2021-11-29 12:54 | RAD REPORT ---
EXAM DESCRIPTION: RAD - Chest Single View - 11/29/2021 12:41 pm CLINICAL HISTORY: PICC line placement COMPARISON: November 26 FINDINGS: Portable chest was obtained following placement of a right upper extremity PICC line. The catheter tip is in the proximal SVC.
[2021-11-29] MEDS ORDERED: NAFCILLIN SODIUM 2 GM in NA CHLORIDE 0.9% 100 ML IVPB SCH (13:00)
[2021-11-29] MEDS ORDERED: POTASSIUM CL SA 10 MEQ TAB PO ONE (16:00)
[2021-11-30] MEDS: CEFAZOLIN/SWI 2gm 2 GM/20 ML SYR IV SCH ×2 (01:00→08:52)
[2021-11-30 04:22] LABS: BUN Blood Urea Nitrogen 7 mg/dL (7-18); Bicarbonate 29 mmol/L (21-32); Glucose Level 191 mg/dL (74-106); Potassium 3.3 mmol/L (3.5-5.1); Sodium Level 135 mmol/L (136-145)
[2021-11-30] MEDS: MORPHINE 4 MG/ML SYR IV PRN ×3 (04:41→21:32)
--- NOTE | 2021-11-30 06:43 | P.PN ---
Date of Service: 11/30/21 Subjective: ROS: 10 point ROS as noted above, otherwise negative Physical exam GEN: Alert, oriented, appears uncomfortable HEENT: Normal conjunctiva, sclera anicteric CV: Regular rate and rhythm, trace b/l lower extremity edema L>R Pulm: Nonlabored respirations on room air ABD: Soft, nontender, nondistended MSK: L knee, +effusion, tender Integumentary: L foot: toe wrapped in dressing, c/d/i Neuro: Normal speech, normal affect Problem List Cellulitis and abscess of L great toe staph bacteremia Diabetes mellitus type 2 Hyponatremia Lactic acidosis Morbid obesity Left knee effusion, pain Morbid obesity Obstructive sleep apnea Thrombocytopenia, chronic Continue empiric antibiotics, IV cefepime and vancomycin Follow-up blood cultures obtained in the ED - gram positive 12/31; ID consulted Would like to obtain further imaging of left toe given chronicity, concern for osteomyelitis. echo ordered PICC ordered, needs minimum ~2 weeks of IV antibiotics no clinical features for endocarditis at this time, low suspicion. TTE ordered General surgery consulted, no surgical intervention, s/p bedside debridement Wound care consulted Pain medication as needed Physical therapy consulted Orthopedic surgery consulted - unlikely septic knee, suspect osteoarthritis Insulin sliding scale Continue diabetic diet Chronic thrombocytopenia, appears around baseline Continue VTE prophylaxis Code: full Dispo: possible LTAC candidate with ongoing pain, wound care, IV antibiotics Exceeds the weight limit for scanners, would be able to get a KEISHA if needed at LTAC, possibly CT/MRI Time Spent Managing Pts Care (In Minutes): 35
--- NOTE | 2021-11-30 08:14 | ECHO ---
HEIGHT: 6 ft 8 in WEIGHT: 424 lb 6.4 oz DATE OF STUDY: 11/29/[address]: Colby Lanza MD 2-DIMENSIONAL: YES M.MODE: YES DOPPLER: YES COLOR FLOW: YES TDS: NO PORTABLE: NO DEFINITY: NO BUBBLE STUDY: NO DIAGNOSIS: STAPH BACTERMIA, RULE OUT VEGETATION. CARDIAC HISTORY: CATHERIZATION: NO SURGERY: NO PROSTHETIC VALVE: NO PACEMAKER: NO MEASUREMENTS (cm) DIASTOLIC (NORMALS) SYSTOLIC (NORMALS) IVSd (0.6-1.2) LA Diam (1.9-4.0) LVEF 55-60% LVIDd (3.5-5.7) LVIDs (2.0-3.5) %FS % LVPWd (0.6-1.2) Ao Diam (2.0-3.7) 2 DIMENSIONAL ASSESSMENT: RIGHT ATRIUM: NORMAL LEFT ATRIUM: NORMAL RIGHT VENTRICLE: NORMAL LEFT VENTRICLE: NORMAL TRICUSPID VALVE: NORMAL MITRAL VALVE: NORMAL PULMONIC VALVE: NORMAL AORTIC VALVE: NORMAL PERICARDIAL EFFUSION: NONE AORTIC ROOT: NORMAL LEFT VENTRICULAR WALL MOTION: NORMAL DOPPLER/COLOR FLOW: SEE BELOW. COMMENTS: LIMITED ECHO DUE TO WINDOWS. LEFT VENTRICULAR EJECTION FRACTION APPEARS NORMAL 55-60%. NO CLEAR VEGETATION IS SEEN. RECOMMEND KEISHA IF CLINICALLY INDICATED. MILD TRICUSPID, MITRAL AND AORTIC REGURGITATION. TECHNOLOGIST: Ector ZAVALA
[2021-11-30] MEDS: VANCOMYCIN 2 GM in NA CHLORIDE 0.9% 500 ML IVPB SCH ×2 (08:52→20:04)
[2021-11-30] MEDS: INSULIN -REGULAR HUMAN 50 UNIT/0.5 ML ML SQ SCH ×4 (08:53→20:04)
[2021-11-30] MEDS: APIXABAN 2.5 MG TABLET PO SCH ×2 (08:56→20:05)
[2021-11-30] MEDS: MEDIHONEY 44 ML TOPICAL TUBE TOP SCH (08:56)
[2021-11-30] MEDS ORDERED: POTASSIUM CL SA 10 MEQ TAB PO ONE (09:00)
--- NOTE | 2021-11-30 10:57 | PN ---
Date of Progress Note: 11/29/2021 Subjective: The patient is awake, alert. No new complaints over the knee pain, but rest of the symp toms have improved. Bowels are stable. Afebrile. The patient does have a PICC line in place. Physical Examination: No significant changes. Assessment: Left foot cellulitis with wound and septicemia. Recommendations: The patient is currently being arranged for transfer to LTAC for IV antibiotics and wound care. The patient can follow up with [facility] on discharge. /MODL Voice ID: [id number] Report ID: [id number]
--- NOTE | 2021-11-30 15:53 | P.PN ---
Subjective Date of Service: 11/30/21 Chief Complaint: Pain and swelling of left great toe Patient seen and examined at bedside, plan to transfer to [facility]. Review of Systems 10-point ROS is otherwise unremarkable Physical Examination - Vital Signs Temperature: 98.4 F Blood Pressure: 146/77 Pulse: 81 Respirations: 20 Pulse Ox (%): 94 - Studies 11/26/21 11:40 Blood - Blood Blood Culture Gram Stain - Final 11/26/21 11:40 Blood - Blood Gram Stain - Final 11/26/21 11:20 Blood - Blood Blood Culture Gram Stain - Final 11/26/21 11:20 Blood - Blood Gram Stain - Final Microbiology Data (last 24 hrs): 11/26/21 11:40 Blood - Blood Blood Culture Gram Stain - Final 11/26/21 11:40 Blood - Blood Gram Stain - Final 11/26/21 11:20 Blood - Blood Blood Culture Gram Stain - Final 11/26/21 11:20 Blood - Blood Gram Stain - Final Assessment And Plan - Plan General: Obese HEENT: Atraumatic, Other (Poor dentition, missing several teeth) Neck: Supple Respiratory: Clear to auscultation bilaterally, Normal air movement Cardiovascular: Regular rate/rhythm, Normal S1 S2 Gastrointestinal: Hypoactive, Soft and benign Integumentary: Other (Bilateral lower extremity stasis dermatitis. Chronic left great toe diabetic ulcer: No clinical signs of infection, no pus/foul odor, however periwound tissue is erythematous/swollen. Base of wound shows healthy viable tissue.) Conclusions/Impression: Antibiotics: vancomycin: 11/30-current cefepime: 11/30-current Assessment/plan Bacteremia -Blood cultures obtained on 11/26 growing MRSA and MSSA. Antibiotics adjusted, continue vancomycin at this time. -Repeat blood cultures obtained on 11/28 show no growth at 24 hours -TTE negative, recommend KEISHA. -Possible source of infection includes: Left great toe diabetic ulcer versus infectious process of left knee Chronic nonhealing left great toe diabetic ulcer Continue current wound care: Medihoney and wrap with gauze Recommend obtaining imaging to assess for osteomyelitis -Can continue with IV antibiotics for duration of hospital stay, can send patient home on oral Bactrim Left knee pain Clinically area looks normal X-ray showed no osseous abnormality -Due to patient's stature/body habitus unable to perform CT/MRI Diabetes -Continue strict glucose control -A1c pending -Strict glucose control needed for proper wound healing Cirrhosis Continue to monitor thrombocytopenia Plan to transfer to [facility]. Medical management per primary team Plan of care discussed with Dr. Long Thank for consultation
[2021-11-30] MEDS: ACETAMINOPHEN 500 MG TAB PO PRN (16:56)
--- NOTE | 2021-11-30 18:11 | P.DS ---
Admission Date: 11/26/21 Discharge Date: 11/30/21 Disposition: [facility]IDENTIAL ACUTE CARE FACILITY Reason for Admission: Pain and swelling of left great toe Procedures: Problem List sepsis secondary to Cellulitis and abscess of L great toe, bacteremia staph bacteremia Diabetes mellitus type 2, non-insulin dependent Hyponatremia Lactic acidosis Morbid obesity Left knee effusion, pain Morbid obesity Obstructive sleep apnea Thrombocytopenia, chronic Brief History of Present Illness: 55-year-old gentleman with a history of diabetes ljkcrnxq-gjf-yrmrtsd-dependent, morbid obesity, obstructive sleep apnea presented to the emergency department with a complaint of chronic nonhealing wound on the left great toe which has become more swollen red and painful. Patient reports inability to walk today b ecause of the pain. He also reports generalized weakness, bouts of diarrhea over the last few days, last diarrhea episode was yesterday. Blood work in the ED shows hyponatremia, blood glucose of 214. Lactic acid is elevated, procalcitonin elevated, chest x-ray showed mild vascular congestion. Patient given a bolus of normal saline for elevated lactic acid and started on antibiotics. Patient with left great toe cellulitis and chronic wound. He stated he is being followed by Dr. Nunez-podiatry who is planning spur excision from that toe. Hospital Course: Patient was treated with empiric antibiotics for diabetic foot ulcer. Patient was noted to be febrile. Blood cultures grew MSSA, and MRSA. Infectious disease was consulted. Repeat blood cultures were obtained An echocardiogram was obtained, no vegetation noted Patient had mild improvement in his symptoms. There was initial concern for possible septic arthritis of his left knee. Orthopedic surgery was consulted, felt this was more likely due to osteoarthritis. Patient was unable to get any further imaging (CT or MRI) due to his weight being over our imaging capacity. Given ongoing issues, and prolonged antibiotic need, wound therapy, patient was transferred to [facility] ([facility] There he would be able to undergo KEISHA, and further imaging. Vital Signs/Physical Exam: Temp Pulse Resp BP Pulse Ox 99.1 F 82 20 148/77 H 94 11/30/21 17:56 11/30/21 16:00 11/30/21 16:00 11/30/21 16:00 11/30/21 16:00 Physical exam GEN: Alert, oriented, appears uncomfortable HEENT: Normal conjunctiva, sclera anicteric CV: Regular rate and rhythm, trace b/l lower extremity edema L>R Pulm: Nonlabored respirations on room air ABD: Soft, nontender, nondistended MSK: L knee, +effusion, tender Integumentary: L foot: toe wrapped in dressing, c/d/i Neuro: Normal speech, normal affect Laboratory Data at Discharge: WBC 4.90 K/uL (4.3-10.9) D 11/29/21 07:26 Hgb 12.9 g/dL (13.6-17.9) L 11/29/21 07:26 Hct 38.4 % (39.6-49.0) L 11/29/21 07:26 Plt Count 94 K/uL (152-406) L D 11/29/21 07:26 PT 15.1 SECONDS (9.5-12.5) H 11/26/21 11:28 INR 1.31 11/26/21 11:28 Sodium 135 mmol/L (136-145) L 11/30/21 03:45 Potassium 3.3 mmol/L (3.5-5.1) L 11/30/21 03:45 BUN 7 mg/dL (7-18) 11/30/21 03:45 Creatinine 0.65 mg/dL (0.55-1.3) 11/30/21 03:45 Glucose 191 mg/dL (74-106) H 11/30/21 03:45 Uric Acid 5.4 mg/dL (3.5-7.2) D 11/26/21 11:28 Phosphorus 1.4 mg/dL (2.5-4.9) L 11/27/21 03:30 Magnesium 2.1 mg/dL (1.8-2.4) 11/29/21 07:26 Total Bilirubin 3.1 mg/dL (0.2-1.0) H 11/28/21 03:13 AST 62 U/L (15-37) H 11/28/21 03:13 ALT 46 U/L (12-78) 11/28/21 03:13 Alkaline Phosphatase 65 U/L (45-117) 11/28/21 03:13 Home Medications: Amitriptyline HCl 100 mg PO DAILY 09/26/20 Empagliflozin [Jardiance] 25 mg PO DAILY 09/26/20 Ergocalciferol (Vitamin D2) [Vitamin D2] 1.25 mg PO SEECOM 09/26/20 Glimepiride [Amaryl*] 2 mg PO DAILY 09/26/20 Metformin HCl 1,000 mg PO BID 09/26/20 Multivitamin 2 tab PO DAILY 09/26/20 PARoxetine HCL [Paroxetine HCl] 20 mg PO DAILY 09/26/20 Potassium Chloride 1 tab PO DAILYPRN PRN 09/26/20 hydroCHLOROthiazide [Hydrochlorothiazide*] 12.5 mg PO DAILY 09/26/20 L.acidoph,Paracasei, B.lactis [Probiotic] 1 tab PO DAILY 11/27/21 Mecobalamin [B12 Active] 1 tab PO DAILY 11/27/21 lisinopriL [Lisinopril] 1 tab PO DAILY 11/27/21 Followup: Ailin Zheng, SENIOR NET SOFTWARE DEVELOPER [Primary Care Provider] - 1-2 Weeks (CAll to schedule an appointment) Time spent managing pt's care (in minutes): 45
[2021-11-30 20:00] VITALS: BP 130/69; TEMP 99
[2021-11-30] MEDS ORDERED: CEFEPIME 2 GM in NA CHLORIDE 0.9% 100 ML IV SCH (21:00)
[2021-11-30] MEDS: LOPERAMIDE HCL 2 MG CAPSULE PO PRN (21:36)
== END 2021-11-30 20:30 | DRG 872 ==
LOC: ER 10:37 → ERHOLD 16:13 → 4TH 22:28
PROVIDERS: ADMIT Internal Medicine; ATTEND Hospitalist
PROC: 02HV33Z Insertion of Infusion Device into Superior Vena Cava, Percutaneous Approach (ICD-10-PCS; principal; 2021-11-29)
DX: A41.02 Sepsis due to Methicillin resistant Staphylococcus aureus (principal); Z68.42 Body mass index [BMI] 45.0-49.9, adult; L03.116 Cellulitis of left lower limb; E87.1 Hypo-osmolality and hyponatremia; L02.612 Cutaneous abscess of left foot; E87.2 Acidosis; A41.01 Sepsis due to Methicillin susceptible Staphylococcus aureus; E11.51 Type 2 diabetes mellitus with diabetic peripheral angiopathy without gangrene; E11.40 Type 2 diabetes mellitus with diabetic neuropathy, unspecified; E11.621 Type 2 diabetes mellitus with foot ulcer; L97.529 Non-pressure chronic ulcer of other part of left foot with unspecified severity; E66.01 Morbid (severe) obesity due to excess calories; M25.462 Effusion, left knee; D69.6 Thrombocytopenia, unspecified; I87.2 Venous insufficiency (chronic) (peripheral); M17.12 Unilateral primary osteoarthritis, left knee; K74.60 Unspecified cirrhosis of liver; I10 Essential (primary) hypertension; Z88.4 Allergy status to anesthetic agent; Z88.0 Allergy status to penicillin; Z88.6 Allergy status to analgesic agent; Z79.899 Other long term (current) drug therapy; Z88.7 Allergy status to serum and vaccine; Z79.84 Long term (current) use of oral hypoglycemic drugs; Z98.84 Bariatric surgery status; Z20.822 Contact with and (suspected) exposure to COVID-19
CPT/HCPCS: 0240U; 36415; 36569; 71045; 74018; 80048; 80053; 80076; 80202; 81003; 81015; 82947; 83036; 83605; 83735; 83880; 84100; 84132; 84145; 84484; 84550; 85025; 85610; 86140; 87040; 87045; 87046; 87077; 87086; 87088; 87177; 87186; 87205; 87209; 89055; 93005; 93306; 93971; 97116; 97161; 97530; 99285; A9577; J0690; J0692; J2405; J3360; J3370; J3480; J7030; J7040; J7050

== ENCOUNTER → 2022-10-23 | Day surgery (SDC) | payer OTHER ==
[2022-10-23 10:33] LABS: Absolute Lymphocytes (CBC) 1.2 K/uL (0.7-4.9); Hematocrit 42.7 % (39.6-49.0); Lymphocytes % 24.2 % (15.3-44.8); MCV 91.7 fL (80-100); MPV 9.6 fL (7.6-11.3); RBC Red Blood Cell Count 4.66 M/uL (4.33-5.43)
[2022-10-23 10:36] LABS: Protime INR 1.15
[2022-10-23 10:56] LABS: Albumin 3.3 g/dL (3.4-5.0); Bilirubin Direct 0.7 mg/dL (0-0.2); Bilirubin Total 3.1 mg/dL (0.2-1.0); Ferritin 26.6 ng/mL (26-388); Potassium 3.6 mmol/L (3.5-5.1); Protein, Total 8.2 g/dL (6.4-8.2)
[2022-10-23 11:48] LABS: Hepatitis B Core IgM Nonreactive (Nonreactive); Hepatitis B surface AG Interp. Nonreactive (Nonreactive); Hepatitis C Virus Ab Nonreactive (Nonreactive)
[2022-10-23 11:49] LABS: Hepatitis B Surface Ab - Quant < 3.10 mIU/mL (<8.0)
== END ==
LOC: LAB 09:05
PROVIDERS: ATTEND Internal Medicine Gastroenterology
DX: K74.60 Unspecified cirrhosis of liver (principal); I85.00 Esophageal varices without bleeding; R19.7 Diarrhea, unspecified
CPT/HCPCS: 36415; 80048; 80076; 82103; 82105; 82390; 82728; 82977; 83540; 84466; 85025; 85610; 85730; 86038; 86255; 86705; 86706; 86803; 87340

== ENCOUNTER 2024-01-23 12:10 | Inpatient (IN) | payer OTHER ==
[2024-01-23 13:36] LABS: Absolute Eosinophils 0.1 K/uL (0-0.5); Absolute Lymphocytes (CBC) 0.9 K/uL (0.7-4.9); Absolute Monocytes 0.6 K/uL (0.1-1.3); Absolute Neutrophil 3.2 K/uL (1.8-8.0); Basophils % 0.7 % (0-1.3); Eosinophils % 1.6 % (0-4.4); Hematocrit 35.8 % (39.6-49.0); Hemoglobin 11.7 g/dL (13.6-17.9); Lymphocytes % 18.9 % (15.3-44.8); MCH 30.2 pg (27.0-35.0); MCHC 32.7 g/dL (32.0-36.0); MCV 92.4 fL (80-100); MPV 9.2 fL (7.6-11.3); Monocytes % 13.1 % (3.3-12.3); Neutrophils % 65.7 % (41.7-73.7); Nucleated Red Blood Cells % 0.2 % (0-0); Platelets 97 thou/uL (152-406); RBC Red Blood Cell Count 3.87 M/uL (4.33-5.43); Red Cell Distribution Width 15.1 % (12.1-15.2)
[2024-01-23 13:41] LABS: Albumin 2.8 g/dL (3.4-5.0); Albumin/Globulin Ratio 0.6 (1.1-1.8); Anion Gap 8.3 mEq/L (5.0-15.0); Bilirubin Direct 0.6 mg/dL (0-0.2); Bilirubin Indirect, Calculated 1.7 mg/dL (0.2-0.8); Bilirubin Total 2.3 mg/dL (0.2-1.0); Globulin 4.9 g/dL (2.3-3.5); Magnesium 2.1 mg/dL (1.6-2.4); PT Prothrombin Time 12.8 SECONDS (9.5-12.5); PTT, Activated Partial Thromb 30.8 SECONDS (24.3-36.9); Potassium 3.3 mEq/L (3.5-5.1); Protein, Total 7.7 g/dL (6.4-8.2); Protime INR 1.17; Troponin High Sensitivity 6.1 pg/mL (<58.9)
--- NOTE | 2024-01-23 13:54 | RAD REPORT ---
EXAM DESCRIPTION: CT - Head Brain Wo Cont - 01/23/2024 1:38 pm CLINICAL HISTORY: Left-sided numbness/weakness COMPARISON: 2018 TECHNIQUE: Computed axial tomography of the head was obtained. IV contrast was not requested. All CT scans are performed using dose optimization technique as appropriate and may include automated exposure control or mA/KV adjustment according to patient size. FINDINGS: An intracranial bleed is not seen The ventricles are normal in caliber No significant hypodense areas within the brain visualized No extra-axial fluid collection is noted. 10 millimeter lesion right subcutaneous posterior upper neck unchanged is benign Fluid within the sinuses/ mastoids is not seen IMPRESSION: No acute intracranial abnormality is seen If patient's symptoms persist MRI of the brain would be recommended
--- NOTE | 2024-01-23 14:07 | RAD REPORT ---
EXAM DESCRIPTION: Jacey Angio01/23/2024 1:37 pm CLINICAL HISTORY: Left sided numbness/weakness COMPARISON: None TECHNIQUE: 100 cc Isovue [address] angiogram of the neck was obtained. 3D MIPS reconstruction performed. All CT scans are performed using dose optimization technique as appropriate and may include automated exposure control or mA/KV adjustment according to patient size. FINDINGS: The opacification of the arteries is mildly suboptimal The great vessels appear unremarkable Common carotid, internal carotid and external carotid arteries bilaterally demonstrate mild plaque. Mild plaque within vertebral arteries. Otherwise unremarkable. No dissection is seen. No high-grade stenosis [place] crieria Mild stenosis 0 to 49 % Moderate stenosis 50-69% Severe stenosis 70-99% IMPRESSION: No significant abnormality is displayed
--- NOTE | 2024-01-23 14:07 | RAD REPORT ---
EXAM DESCRIPTION: CTHead angio01/23/2024 1:38 pm CLINICAL HISTORY: Left-sided numbness/weakness COMPARISON: none TECHNIQUE: 100 cc Isovue [address] angiogram of the head was obtained. 3D MIPS reconstruction performed. All CT scans are performed using dose optimization technique as appropriate and may include automated exposure control or mA/KV adjustment according to patient size. FINDINGS: The basilar, anterior cerebral, middle cerebral and posterior cerebral arteries do not dem onstrate a significant stenosis Mild calcified plaque distal internal carotid arteries An aneurysm is not seen No large vessel occlusion IMPRESSION: No significant abnormality is displayed
--- NOTE | 2024-01-23 14:09 | RAD REPORT ---
EXAM DESCRIPTION: Christiano Single View01/23/2024 1:32 pm CLINICAL HISTORY: sob COMPARISON: 2021 FINDINGS: The lungs appear clear of acute infiltrate. The heart is normal size IMPRESSION: No acute abnormalities displayed
--- NOTE | 2024-01-23 14:37 | ER ---
Nurse's Notes [facility] Name: Colby Tilley Jr Age: 58 yrs Sex: Male : 1965 Arrival Date: 01/23/2024 Time: 12:10 Bed 19 Private MD: Diagnosis: Cerebrovascular accident Presentation: 01/22 12:32 Chief complaint: Patient states: "the whole left side of my body is asleep and it's aa5 been like that for a few days now". Pt states "I also feel short of breath today and I fell twice today onto the sofa seat". 12:32 Onset of symptoms was December 2023. aa5 12:32 Acuity: ZENAIDA 2 aa5 12:32 Coronavirus screen: At this time, the client does not indicate any symptoms associated aa5 with coronavirus-19. Ebola Screen: Patient denies travel to an Ebola-affected area in the 21 days before illness onset. Initial Sepsis Screen: Does the patient meet any 2 criteria? No. Patient's initial sepsis screen is negative. Does the patient have a suspected source of infection? No. Patient's initial sepsis screen is negative. Risk Assessment: Do you want to hurt yourself or someone else? Patient reports no desire to harm self or others. 12:32 Method Of Arrival: Wheelchair aa5 Triage Assessment: 19:44 General: Appears uncomfortable, Behavior is calm, cooperative, appropriate for age. cp4 Respiratory: Onset: The symptoms/episode began/occurred. Respiratory: Reports. Respiratory: Reports. 19:45 Respiratory: the patient has moderate shortness of breath. cp4 Historical: - Allergies: 12:33 Aspirin; aa5 12:33 Lyrica; aa5 12:33 PENICILLINS; aa5 12:33 PROPOFOL (sensitive ); aa5 12:33 anesthesia; aa5 - PMHx: 12:33 cirrhosis of liver; Diabetes - NIDDM; Hypertension; PVD; aa5 12:34 leg swelling (Unknown); neuropathy (Unknown); aa5 12:36 Left foot wound; aa5 - PSHx: 12:33 Gastric Bypass; aa5 - Immunization history:: Adult Immunizations unknown. - Infectious Disease History:: Denies. - Social history:: Smoking status: Patient denies any tobacco usage or history of. - Family history:: not pertinent. Screenin:10 [facility] ED Fall Risk Assessment (Adult) History of falling in the last 3 months, cp4 including since admission No falls in past 3 months (0 pts). [facility] ED Fall Risk Assessment (Adult) Confusion or Disorientation No (0 pts) Intoxicated or Sedated No (0 pts) Impaired Gait No (0 pts) Mobility Assist Device Used No (0 pt) Altered Elimination No (0 pt) Score/Fall Risk Level 0 - 2 = Low Risk Oriented to surroundings, Maintained a safe environment, Assessed \\T\\ reinforced patient's understanding of fall precautions, Hourly rounding (assess needs \\T\\ fall precautionary measures) done. Abuse screen: Denies threats or abuse. Nutritional screening: No deficits noted. Tuberculosis screening: No symptoms or risk factors identified. 13:26 [place] Swallow Protocol Exclusion Criteria: Exclusion Criteria Result: Proceed Brief cp4 Cognitive Screen What is your name? Normal, Where are you right now? Normal, What year is it? Normal. Oral Mechanism Examination Facial Symmetry: Normal, Motion: Normal, Lip Closure: Normal, Oral Mechanism Result: Normal. 3 oz Water Swallow Challenge: Pt able to drink all water without stopping, coughing, choking or throat clearing: Yes Result: PASS. Assessment: 13:05 General: Appears uncomfortable, Behavior is. cp4 13:10 General: Appears Behavior is calm, cooperative, appropriate for age. Pain: Denies pain. cp4 Cardiovascular: Rhythm is sinus rhythm. Respiratory: Airway is patent Respiratory effort is even, unlabored, Breath sounds are clear bilaterally. 19:18 Reassessment: Room is not ready for patient to come up for admission, will call back to pf1 verified room ready. 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 Stated she would check cp4 into it. Vital Signs: 12:32 BP 131 / 96; Pulse 84; Resp 18 S; Temp 98(TE); Pulse Ox 97% on R/A; Weight 179.62 kg aa5 (R); Height 6 ft. 8 in. (R); 16:28 BP 136 / 92; Pulse 79; Resp 18; Pulse Ox 99% ; cp4 12:32 Body Mass Index 43.50 (179.62 kg, 203.2 cm) aa5 NIH Stroke Scale Scores: 13:26 NIHSS Score: 2 cp4 ED Course: 12:14 Patient arrived in ED. mg5 12:32 Arm band placed on. aa5 12:33 Triage completed. aa5 12:48 Oscar Loredo MD is Attending Physician. rt 12:58 Kerri Waite is Primary Nurse. cp4 13:04 EKG done, by ED staff. jg11 13:10 Placed in gown. Bed in low position. Call light in reach. Side rails up X2. cp4 13:10 No provider procedures requiring assistance completed. cp4 13:19 Initial lab(s) drawn, by me, sent to lab. Inserted saline lock: 20 gauge in right jg11 antecubital area, using aseptic technique. Blood collected. 13:19 Basic Metabolic Panel Sent. jg11 13:19 CBC with Diff Sent. jg11 13:20 Hepatic Function Sent. jg11 13:20 High Sensitivity Troponin Sent. jg11 13:20 Magnesium Sent. jg11 13:20 Protime (+inr) Sent. jg11 13:20 Ptt, Activated Sent. jg11 13:33 Stroke CXR 1 View In Process Unspecified. EDMS 13:39 CT Neck Angio In Process Unspecified. EDMS 13:40 CT Head Angio In Process Unspecified. EDMS 13:40 CT Head Brain wo Cont In Process Unspecified. EDMS 14:36 Johnnie Adam MD is Hospitalizing Provider. rt 16:29 Provided Education on: admission. cp4 16:29 Patient admitted, IV remains in place. cp4 Administered Medications: 16:49 Drug: morphine IVP or IV 4 mg IVP once over 4 mins Route: IVP; Infused Over: 4 mins; cp4 Site: right antecubital; Medication: 13:10 VIS not applicable for this client. cp4 Outcome: 14:36 Decision to Hospitalize by Provider. rt 16:29 Admitted to ER Hold. Please see [facility] for further documentation. cp4 16:29 Condition: stable 16:29 Instructed on the need for admit, 19:45 Patient left the ED. cp4 NIH Stroke Scale - NIH Stroke Score Date: 01/23/2024 Time: 13:26 Total Score = 2 10. Dysarthria (speech clarity - read or repeat words) - 0(Normal) 11. Extinction and Inattention (visual/tactile/auditory/spatial/personal) - 0(No abnormality) 1a. Level of Consciousness (LOC) - 0(Alert) 1b. Level of Consciousness (LOC) (Month \\T\\ Age) - 0(Both) 1c. LOC Commands (Open \\T\\ Closes Eyes/Solderer Dipper) - 0(Both) 2. Best Gaze (Lateral Gaze Paresis) - 0(Normal) 3. Visual Field Loss - 0(No visual loss) 4. Facial Palsy - 0(Normal) 5a. Left Arm: Motor (10-second hold) - 1(Drift) 5b. Right Arm: Motor (10-second hold) - 0(No drift) 6a. Left Leg: Motor (5-second hold - always test supine) - 1(Drift) 6b. Right Leg: Motor (5-second hold - always test supine) - 0(No drift) 7. Limb Ataxia (finger/nose \\T\\ heel/cunningham - test with eyes open) - 0(Absent) 8. Sensory Loss (pinprick arms/legs/face) - 0(Normal) 9. Best Language: Aphasia (description/naming/reading) - 0(No aphasia) Initials: cp4 Signatures: Dispatcher [employer] EDMS Eli Hammer RN RN aa5 Oscar Loredo MD MD rt Tammy Baxter RN RN pf1 Diamond Chávez mg5 Kerri Waite cp4 Nikolai Wong jg11 Corrections: (The following items were deleted from the chart) 12:33 12:32 Chief complaint: Patient states: "the whole left side of my body is aa5 asleep and it's been like that for a few days now" aa5 12:35 12:33 Allergies: anesthia; aa5 aa5 12:35 12:33 PMHx: leg swelling (Gastric Bypass); aa5 aa5 12:35 12:33 PMHx: neuropathy (Gastric Bypass); aa5 aa5
--- NOTE | 2024-01-23 14:37 | EDPHYS ---
Physician Documentation [facility] Name: Colby Tilley Jr Age: 58 yrs Sex: Male : 1965 Arrival Date: 01/23/2024 Time: 12:10 Bed 19 Private MD: ED Physician Oscar Loredo HPI: 01/22 14:01 This 58 yrs old Male presents to ER via Wheelchair with complaints of Breathing rt Difficulty, Weakness - LIMB. 14:01 Patient presents to the ED with 2 days of a left-sided weakness, numbness. Denies any rt speech difficulties. Denies other acute complaints this time. Symptoms are moderate in severity, no other aggravating elevating factors. Historical: - Allergies: 12:33 Aspirin; aa5 12:33 Lyrica; aa5 12:33 PENICILLINS; aa5 12:33 PROPOFOL (sensitive ); aa5 12:33 anesthesia; aa5 - PMHx: 12:33 cirrhosis of liver; Diabetes - NIDDM; Hypertension; PVD; aa5 12:34 leg swelling (Unknown); neuropathy (Unknown); aa5 12:36 Left foot wound; aa5 - PSHx: 12:33 Gastric Bypass; aa5 - Immunization history:: Adult Immunizations unknown. - Infectious Disease History:: Denies. - Social history:: Smoking status: Patient denies any tobacco usage or history of. - Family history:: not pertinent. ROS: 14:01 Constitutional: Negative for fever, chills, and weight loss, Cardiovascular: Negative rt for chest pain, palpitations, and edema, Respiratory: Negative for shortness of breath, cough, wheezing, and pleuritic chest pain, Abdomen/GI: Negative for abdominal pain, nausea, vomiting, diarrhea, and constipation, MS/Extremity: Negative for injury and deformity, Skin: Negative for injury, rash, and discoloration, 14:01 Neuro: Positive for numbness, weakness, Exam: 14:01 Constitutional: This is a well developed, well nourished patient who is awake, alert, rt and in no acute distress. Head/Face: Normocephalic, atraumatic. Chest/axilla: Normal chest wall appearance and motion. Nontender with no deformity. No lesions are appreciated. Cardiovascular: Regular rate and rhythm with a normal S1 and S2. No gallops, murmurs, or rubs. Normal PMI, no JVD. No pulse deficits. Respiratory: Lungs have equal breath sounds bilaterally, clear to auscultation and percussion. No rales, rhonchi or wheezes noted. No increased work of breathing, no retractions or nasal flaring. Abdomen/GI: Soft, non-tender, with normal bowel sounds. No distension or tympany. No guarding or rebound. No evidence of tenderness throughout. Back: No spinal tenderness. No costovertebral tenderness. Full range of motion. Skin: Warm, dry with normal turgor. Normal color with no rashes, no lesions, and no evidence of cellulitis. MS/ Extremity: Pulses equal, no cyanosis. Neurovascular intact. Full, normal range of motion. 14:01 Eyes: Extraocular muscles intact, no visual field deficits. 14:01 ECG was reviewed by the Attending Physician. 14:01 Neuro: Drift of the left upper, left lower extremity, sensory deficits noted. Left-sided facial droop. Cranial is otherwise intact, speech normal., Vital Signs: 12:32 BP 131 / 96; Pulse 84; Resp 18 S; Temp 98(TE); Pulse Ox 97% on R/A; Weight 179.62 kg aa5 (R); Height 6 ft. 8 in. (R); 16:28 BP 136 / 92; Pulse 79; Resp 18; Pulse Ox 99% ; cp4 12:32 Body Mass Index 43.50 (179.62 kg, 203.2 cm) aa5 NIH Stroke Scale Scores: 13:26 NIHSS Score: 2 cp4 MDM: 12:50 Patient medically screened. rt 15:59 Differential diagnosis: CVA, TIA. Data reviewed: vital signs, lab test result(s), EKG, rt radiologic studies. Consideration of Admission/Observation Patient was admitted/placed on observation. Management of patient was discussed with the following: Hospitalist: Agrees to admit. Independent interpretation of the following test(s) in the Emergency Department CT Scan: My interpretation is No intracranial hemorrhage seen on interpretation of CT scan images. Care significantly affected by the following chronic conditions: Diabetes, Hypertension. Counseling: I had a detailed discussion with the patient and/or guardian regarding the historical points, exam findings, and any diagnostic results supporting the discharge/admit diagnosis, lab results, radiology results, the need for further work-up and treatment in the hospital. 01/22 13:02 Order name: Basic Metabolic Panel; Complete Time: 14:14 rt 01/22 13:02 Order name: CBC with Diff; Complete Time: 16:37 rt 01/22 13:02 Order name: Hepatic Function; Complete Time: 14:14 rt 01/22 13:02 Order name: High Sensitivity Troponin; Complete Time: 14:14 rt 01/22 13:02 Order name: Magnesium; Complete Time: 14:14 rt 01/22 13:02 Order name: Protime (+inr); Complete Time: 14:14 rt 01/22 13:02 Order name: Ptt, Activated; Complete Time: 14:14 rt 01/22 13:31 Order name: CREATININE WHOLE BLOOD; Complete Time: 14:14 EDMS 01/22 13:32 Order name: Glucose, Ancillary Testing; Complete Time: 14:14 EDMS 01/22 13:55 Order name: CBC Smear Scan; Complete Time: 16:37 EDMS 01/22 15:02 Order name: Ammonia; Complete Time: 16:37 EDMS 01/22 15:02 Order name: CBC with Automated Diff EDMS 01/22 15:02 Order name: CBC with Automated Diff EDMS 01/22 15:02 Order name: CBC with Automated Diff EDMS 01/22 15:02 Order name: CBC with Automated Diff EDMS 01/22 15:02 Order name: Comprehensive Metabolic Panel EDVT 01/22 15:02 Order name: Comprehensive Metabolic Panel EDMS 01/22 15:02 Order name: Comprehensive Metabolic Panel EDMS 01/22 15:02 Order name: Comprehensive Metabolic Panel EDVT 01/22 15:02 Order name: Creatine Phosphokinase EDMS 01/22 15:02 Order name: Creatine Phosphokinase EDMS 01/22 15:02 Order name: Lipid Profile EDMS 01/22 15:02 Order name: Lipid Profile EDMS 01/22 15:02 Order name: Troponin High Sensitivity EDMS 01/22 15:02 Order name: Troponin High Sensitivity EDMS 01/22 15:02 Order name: Troponin High Sensitivity EDMS 01/22 17:38 Order name: Glucose, Ancillary Testing; Complete Time: 19:39 EDMS 01/22 13:02 Order name: CT Head Angio; Complete Time: 14:14 rt 01/22 13:02 Order name: CT Neck Angio; Complete Time: 14:14 rt 01/22 13:02 Order name: Stroke CXR 1 View; Complete Time: 14:14 rt 01/22 13:02 Order name: CT Head Brain wo Cont; Complete Time: 14:14 rt 01/22 15:02 Order name: Echo with Doppler EDMS 01/22 15:02 Order name: Brain Wo Cont; Complete Time: 19:39 EDMS 01/22 17:49 Order name: CT; Complete Time: 19:39 EDMS 01/22 15:01 Order name: IRF Screen EDMS 01/22 13:02 Order name: Accucheck; Complete Time: 13:14 rt 01/22 13:02 Order name: Cardiac monitoring; Complete Time: 13:04 rt 01/22 13:02 Order name: EKG - Nurse/Tech; Complete Time: 13:04 rt 01/22 13:02 Order name: IV Saline Lock; Complete Time: 13:14 rt 01/22 13:02 Order name: Labs collected and sent; Complete Time: 13:14 rt 01/22 13:02 Order name: NPO; Complete Time: 13:04 rt 01/22 13:02 Order name: O2 Per Protocol; Complete Time: 13:04 rt 01/22 13:02 Order name: O2 Sat Monitoring; Complete Time: 13:04 rt 01/22 13:02 Order name: Stroke Swallow Screen; Complete Time: 13:04 rt EC:01 Rate is 78 beats/min. Rhythm is regular, Normal Sinus Rhythm with No ectopy. QRS [place] rt is Normal. MA interval is normal. QRS interval is normal. QT interval is normal. No Q waves. No ST changes noted. Interpreted by me. Administered Medications: 16:49 Drug: morphine IVP or IV 4 mg IVP once over 4 mins Route: IVP; Infused Over: 4 mins; cp4 Site: right antecubital; Disposition Summary: 01/23/24 14:36 Hospitalization Ordered Notes: Hospitalization Status: Observation rt Provider: Johnnie Adam rt Condition: Stable rt Problem: new rt Symptoms: are unchanged rt Bed/Room Type: Standard rt Location: Telemetry/MedSurg (observation)(01/23/24 18:18) eb Room Assignment: 410(01/23/24 18:39) ja1 Diagnosis - Cerebrovascular accident rt Forms: - Medication Reconciliation Form rt - SBAR form rt - Leadership Thank You Letter rt NIH Stroke Scale - NIH Stroke Score Date: 01/23/2024 Time: 13:26 Total Score = 2 10. Dysarthria (speech clarity - read or repeat words) - 0(Normal) 11. Extinction and Inattention (visual/tactile/auditory/spatial/personal) - 0(No abnormality) 1a. Level of Consciousness (LOC) - 0(Alert) 1b. Level of Consciousness (LOC) (Month \T\ Age) - 0(Both) 1c. LOC Commands (Open \T\ Closes Eyes/Air Value Tester) - 0(Both) 2. Best Gaze (Lateral Gaze Paresis) - 0(Normal) 3. Visual Field Loss - 0(No visual loss) 4. Facial Palsy - 0(Normal) 5a. Left Arm: Motor (10-second hold) - 1(Drift) 5b. Right Arm: Motor (10-second hold) - 0(No drift) 6a. Left Leg: Motor (5-second hold - always test supine) - 1(Drift) 6b. Right Leg: Motor (5-second hold - always test supine) - 0(No drift) 7. Limb Ataxia (finger/nose \T\ heel/cunningham - test with eyes open) - 0(Absent) 8. Sensory Loss (pinprick arms/legs/face) - 0(Normal) 9. Best Language: Aphasia (description/naming/reading) - 0(No aphasia) Initials: cp4 Signatures: Dispatcher [employer] EDMS Nita Harkins, ENTRY LEVEL SALES REPRESENTATIVE-C ENTRY LEVEL SALES REPRESENTATIVE-Csnw Eli Hammer RN RN aa5 Marsha Jon RN RN hb Aguilar, Jose RN RN Drea Bradshaw Ryan, MD MD rt Kerri Waite cp4 Corrections: (The following items were deleted from the chart) 12:35 12:33 Allergies: anesthia; aa5 aa5 12:35 12:33 PMHx: leg swelling (Gastric Bypass); aa5 aa5 12:35 12:33 PMHx: neuropathy (Gastric Bypass); aa5 aa5 13:04 13:04 Head Brain Wo [id number] ordered. EDMS EDMS 16:17 14:36 Telemetry/MedSurg (observation) rt eb 16:17 14:36 rt eb 18:18 16:17 BR ER HOLD eb eb 18:18 16:17 ERHOLD- eb eb 18:39 18:18 407 eb ja1
[2024-01-23] MEDS: NA CHLORIDE 0.9% 1,000 ML IV SCH (15:00)
--- NOTE | 2024-01-23 15:00 | P.HP ---
Certification for Inpatient Patient admitted to: Inpatient With expected LOS: >2 Midnights <Nita Harkins - Last Filed: 01/23/24 19:27> Patient History Date of Service: 01/23/24 Primary Care Provider: Marysol Amaral Reason for admission: CVA History of Present Illness: Mr. Tilley is a 58-year-old male with a past medical history of obesity for which he had gastric bypass. He has lost from 600 pounds down to 390. He has a past medical history of fatty liver induced cirrhosis, diabetes, hypertension, peripheral vascular disease, neuropathy, left foot wound, and on MRI is noted to have a 2 mm remote lacunar infarct of the left medial thalamus who presents to the ED for 2-day history of left-sided numbness and weakness. Evaluation in the emergency department reveals a GCS of 15 with a NIH of 2. Laboratory evaluation reveals a white count of 4.9, H/H of 11.7/35.8 with platelets of 97. Electrolytes showed a sodium 135, potassium 3.3, chloride 102, bicarb 28, glucose 146, creatinine 0.9. LFTs with AST 43, ALT 36, alk phos 162, total bili 2.3, direct bili 0.6, magnesium 2.1, troponin 6.1. Apart from this acute stroke he has a reddened left great toe and second toe. CT evaluation shows "mild cortical irregularity distal aspect of the second distal phalanx, first metatarsal head and base of the first proximal phalanx. 1 or more of these areas could represent osteomyelitis". Dr. Putnam was consulted from the emergency department for this acute CVA and we will consult Dr. Ny for treatment of osteomyelitis. - Past Medical/Surgical History Diabetic: Yes -: Hypertension -: Peripheral vascular disease -: Diabetes mellitus type 2 -: Morbid obesity -: Hyperlipidemia -: Depression -: Obstructive sleep apnea -: Cirrhosis - fatty liver -: Diabetic neuropathy -: Venous insufficiency -: CVA -: Gastric bypass -: Bilateral knee surgery -: "venous reflux" had small veins closed "years ago" -: left great toe shaved Psychosocial/ Personal History: The patient lives with his brother. He has no children. He is disabled. - Family History Father -: Hypertension, Stroke - Social History Smoking Status: Never smoker Alcohol use: No CD- Drugs: No Caffeine use: No Place of Residence: Home <Nita Harkinslen - Last Filed: 01/23/24 19:27> Date of Service: 01/23/24 <Johnnie Adam Teresa - Last Filed: 01/23/24 21:39> Allergies ciprofloxacin Allergy (Unknown, Verified 10/09/18 11:26) Hives/Rash Penicillins Adverse Reaction (Mild, Verified 10/09/18 11:26) Shortness of breath aspirin Adverse Reaction (Unknown, Verified 10/09/18 11:26) Shortness of breath propofol Adverse Reaction (Verified 10/09/18 11:26) over sedation symptoms,hard to wake up flu vaccine Adverse Reaction (Uncoded 10/09/18:) extreme sore throat, chronic cough Home Medications: Glimepiride [Amaryl*] 4 mg PO BID 09/26/20 Metformin HCl 1,000 mg PO BID 09/26/20 PARoxetine HCL [Paroxetine HCl] 40 mg PO DAILY 09/26/20 Potassium Chloride 1 tab PO DAILYPRN PRN 09/26/20 lisinopriL [Lisinopril] 1 tab PO DAILY 11/27/21 Atorvastatin Calcium 20 mg PO DAILY 01/23/24 Furosemide [Lasix] 40 mg PO DAILY 01/23/24 Linagliptin [Tradjenta] 5 mg PO DAILY 01/23/24 Pantoprazole [Protonix Tab] 40 mg PO DAILY 01/23/24 Propranolol [Inderal] 10 mg PO BID 01/23/24 Review of Systems 10-point ROS is otherwise unremarkable General: As per HPI Musculoskeletal: As per HPI Integumentary: As per HPI Neurological: As per HPI <Nita Harkinslen - Last Filed: 01/23/24 19:27> Physical Examination - Physical Exam General: Alert, In no apparent distress, Oriented x3, Obese HEENT: Atraumatic, Normocephalic Neck: Supple Respiratory: Normal air movement Cardiovascular: Regular rate/rhythm, Normal S1 S2 Capillary refill: <2 Seconds Gastrointestinal: Soft and benign Musculoskeletal: Other (left great toe and to a larger degree second toe with e rythema, thickening, and 2nd toe with ulceration to distal toe under nail) Integumentary: Other (as above) Neurological: Normal speech, Normal tone, Normal affect, Other (left arm without drift but some loss of sensation, left leg weak 3/5 with drift and loss of sensation) Lymphatics: No axilla or inguinal lymphadenopathy External genitalia: Deferred Rectal: Deferred (GCS 15, NIH 2 for sensation loss and left lower ext drift) - Studies Laboratory Data (last 24 hrs) 01/23/24 01/23/24 01/23/24 13:16 13:16 13:16 WBC 4.90 Hgb 11.7 L Hct 35.8 L Plt Count 97 L PT 12.8 H INR 1.17 APTT 30.8 Sodium 135 L Potassium 3.3 L BUN 12 Creatinine 0.90 Glucose 146 H Magnesium 2.1 Total Bilirubin 2.3 H AST 43 H ALT 36 Alkaline Phosphatase 162 H <HarkinsNita Chauncey - Last Filed: 01/23/24 19:27> - Studies Laboratory Data (last 24 hrs) 01/23/24 01/23/24 01/23/24 13:16 13:16 13:16 WBC 4.90 Hgb 11.7 L Hct 35.8 L Plt Count 97 L PT 12.8 H INR 1.17 APTT 30.8 Sodium 135 L Potassium 3.3 L BUN 12 Creatinine 0.90 Glucose 146 H Magnesium 2.1 Total Bilirubin 2.3 H AST 43 H ALT 36 Alkaline Phosphatase 162 H <Johnnie Adam - Last Filed: 01/23/24 21:39> Assessment and Plan - Plan CVA 1. MRI of the brain + for 7x3mm acute right thalamus infarct 2. Echocardiogram and carotid Doppler 3. Antiplatelet therapy and statin therapy, lovenox 40mg sq daily, pt allergic to ASA, Plavix 75mg po daily, Atorvastatin 40mg po q hs 4. Neurology consultation - Dr. Putnam consulted from ED 5. Physical therapy/Occupational Therapy/speech therapy evaluation 7. Neurochecks every 4 hours, NIH stroke scale every shift (currently 2) 8. DVT prophylaxis Osteomyelitis 1. Continue IV antibiotics - Vanco 1.75gm IV q12h, pharmacy to adjust 2. Continue with local wound care 3. Wound care consultation/surgical consultation - Dr. Ny consulted 4. Gentle IV hydration - NS at 75ml/hr 5. Monitor and trend labs 6. Strict blood sugar monitoring, SSI ac and hs and Lantus 20units daily 7. Pain control Morphine 4mg q 4h prn pain 8. GI and DVT prophylaxis HTN Lisinopril 10mg po daily (usual dose 20mg), permissive HTN for now Code status Full - Advance Directives Does patient have a Living Will: No Does patient have a Durable POA for Healthcare: No <Nita Harkins - Last Filed: 01/23/24 19:27> - Plan Pt seen and and examined. I agree with the note by the LAUNDRY MACHINE TENDER. Pt is a 58yo male with past medical history of obesity, s/p gastric bypass surgery, fatty liver induced cirrhosis, diabetes, hypertension, peripheral vascular disease, neuropathy, left foot wound, and lacunar infarct who presents with left-sided numbness and weakness. The symptoms progressively worsened and pt came to the ER for evaluation. On admission, lab studies show WBC 4.9, Hgb of 11.7, sodium 135, potassium 3.3, chloride 102, bicarb 28, glucose 146, creatinine 0.9. LFTs with AST 43, ALT 36, alk phos 162, total bili 2.3, direct bili 0.6, magnesium 2.1, troponin 6.1. CT head is unremarkable. Physical exam reveal left 2nd toe infetion. Pt could not tolerate MRI of the westover[place] foot due to pain. CT of the left foot shows mild cortical irregularity distal aspect of the second distal phalanx, first metatarsal head and base of the first proximal phalanx that is concerning for osteomyelitis. At bedside pt is in nAD A/p; CVA: Pt has left sided weakness and numbness. Unable to lift his left leg very high off the bed. MRI brain shows 7x3mm acute right thalamus infarct. Pt is allergic to aspirin. Will continue plavix, statin and allow permissive htn. consulted Dr. Putnam. Left 2nd toe infection: CT scan of the left foot is concerning for osteomyelitis. Will give iv vanc and f/u blood cx. Consulted Gen surgeon. Will continue home meds for the chronic medical problems. <Johnnie Adam - Last Filed: 01/23/24 21:39>
[2024-01-23 15:23] LABS: Blood Morphology Comment NOT SEEN (NOT SEEN); Platelet Estimate DECR; White Blood Cell Scan OK (OK)
[2024-01-23] MEDS: ENOXAPARIN 40 MG/0.4 ML SQ SCH (16:00)
[2024-01-23 16:23] VITALS: BMI 41.6
[2024-01-23] MEDS ORDERED: MORPHINE 4 MG/ML SYR ONE (16:40)
--- NOTE | 2024-01-23 17:00 | RAD REPORT ---
EXAM DESCRIPTION: MRI - Brain Wo Cont - 01/23/2024 4:40 pm CLINICAL HISTORY: Left-sided numbness COMPARISON: Head CT January 23, 2024 TECHNIQUE: Axial, sagittal, and coronal magnetic resonance images of the brain were obtained. FINDINGS: Mild to moderate signal within periventricular, deep and subcortical white matter probably ischemic changes secondary to small vessel disease Diffusion-weighted/ADC mapping demonstrates a 7 x 3 millimeter acute infarction lateral right thalamu s. 2 millimeter old lacunar infarct left medial thalamus Gradient echo sequences demonstrate areas of low signal varying from 1-3 millimeters within the left aspect of the clive and right and left thalami which may be the sequela of prior old micro bleeds The ventricles are normal caliber. An extra-axial fluid collection is not noted. Fluid within the sinuses/mastoids is not seen IMPRESSION: 7 x 3 millimeter acute infarction right thalamus
--- NOTE | 2024-01-23 17:48 | RAD REPORT ---
EXAM DESCRIPTION: CT - Foot Left Wo Con - 01/23/2024 5:04 pm CLINICAL HISTORY: Foot pain and swelling COMPARISON: None TECHNIQUE: Computed axial tomography left foot obtained with reconstruction All CT scans are performed using dose optimization technique as appropriate and may include automated exposure control or mA/KV adjustment according to patient size. FINDINGS: Soft tissue ulceration second toe. Mild cortical irregularity involves distal aspect of t he second distal phalanx. Mild cortical regularity involves the first metatarsal head and base of first proximal phalanx. Diffuse edema within the subcutaneous tissues No acute fracture or dislocation. Periosteal deposition first proximal phalanx is chronic IMPRESSION: Mild cortical regularity distal aspect of the second distal phalanx, first metatarsal he ad and base of the first proximal phalanx. 1 or more of these areas could represent osteomyelitis. Th is should be correlated clinically. MRI may be helpful for further evaluation
[2024-01-23] MEDS: INSULIN REGULAR (HUMAN) 100 UNIT/ML SQ SCH (18:00)
[2024-01-23] MEDS ORDERED: ENOXAPARIN 40 MG/0.4 ML SQ ONE (18:10)
[2024-01-23] MEDS ORDERED: SODIUM CHLORIDE 0.9% 10ML INJ IV PRN (19:05)
[2024-01-23] MEDS ORDERED: MORPHINE 2 MG/ML SYR IV PRN (19:46)
[2024-01-23] MEDS: VANCOMYCIN 2 GM in NA CHLORIDE 0.9% 500 ML IVPB SCH (20:00)
[2024-01-23] MEDS: NA CHLORIDE 0.9% 500 ML ONE (20:20)
[2024-01-23] MEDS: VANCOMYCIN 1 GM/VIAL ONE (20:21)
[2024-01-23] MEDS: ATORVASTATIN 40 MG TAB PO SCH (20:55)
[2024-01-23] MEDS: POTASSIUM CL SA 10 MEQ TAB PO SCH (20:55)
[2024-01-23] MEDS: PROPRANOLOL HCL 10 MG TAB PO SCH (23:19)
[2024-01-24 07:07] LABS: Absolute Eosinophils 0.1 K/uL (0-0.5); Absolute Lymphocytes (CBC) 0.8 K/uL (0.7-4.9); Absolute Monocytes 0.5 K/uL (0.1-1.3); Absolute Neutrophil 1.5 K/uL (1.8-8.0); Basophils % 0.6 % (0-1.3); Hematocrit 33.3 % (39.6-49.0); Hemoglobin 10.9 g/dL (13.6-17.9); MCH 30.2 pg (27.0-35.0); MCHC 32.6 g/dL (32.0-36.0); MCV 92.8 fL (80-100); MPV 9.2 fL (7.6-11.3); Monocytes % 15.5 % (3.3-12.3); Neutrophils % 52.9 % (41.7-73.7); Nucleated Red Blood Cells % 0.2 % (0-0); Platelets 76 thou/uL (152-406); RBC Red Blood Cell Count 3.59 M/uL (4.33-5.43); Red Cell Distribution Width 15.6 % (12.1-15.2)
[2024-01-24 07:29] LABS: Albumin 2.4 g/dL (3.4-5.0); Albumin/Globulin Ratio 0.6 (1.1-1.8); Anion Gap 7.4 mEq/L (5.0-15.0); Bilirubin Total 1.9 mg/dL (0.2-1.0); Globulin 4.3 g/dL (2.3-3.5); Potassium 3.4 mEq/L (3.5-5.1); Protein, Total 6.7 g/dL (6.4-8.2); Troponin High Sensitivity 7.9 pg/mL (<58.9)
[2024-01-24] MEDS: FUROSEMIDE 40 MG TABLET PO SCH (07:49)
[2024-01-24] MEDS: lisinopriL 5 MG TAB PO SCH ×2 (07:50→21:00)
[2024-01-24] MEDS: INSULIN GLARGINE 100 UNIT/ML SQ SCH (07:50)
[2024-01-24] MEDS: CLOPIDOGREL 75 MG TABLET PO SCH (09:00)
[2024-01-24] MEDS ORDERED: lisinopriL 5 MG TAB PO SCH (09:00)
[2024-01-24] MEDS: FOLIC ACID 5 MG/ML VIAL IVP SCH (09:00)
[2024-01-24 09:09] LABS: Blood Morphology Comment NOT SEEN (NOT SEEN); Platelet Estimate DECR; White Blood Cell Scan OK (OK)
[2024-01-24] MEDS: PARoxetine HCL 10 MG TAB PO SCH (09:30)
[2024-01-24] MEDS: PANTOPRAZOLE 40 MG INJ IVP SCH (09:30)
[2024-01-24] MEDS: POTASSIUM CL SA 10 MEQ TAB PO ONE (09:30)
--- NOTE | 2024-01-24 11:11 | P.PN ---
Subjective Date of Service: 01/24/24 Primary Care Provider: Marysol Amaral Chief Complaint: CVA Subjective: No new changes, No C/O voiced (Discussed results of MRI of brain and CT of left foot. Pt voices understanding. Discussed need for PICC) <Susan Harkinskandi Grossman - Last Filed: 01/24/24 11:05> Date of Service: 01/24/24 <Johnnie Adam - Last Filed: 01/24/24 12:58> Review of Systems 10-point ROS is otherwise unremarkable General: As per HPI Integumentary: As per HPI Neurological: As per HPI <Susan Harkinskandi Grossman - Last Filed: 01/24/24 11:05> Physical Examination - Vital Signs Temperature: 97.4 F Blood Pressure: 108/57 Pulse: 65 Respirations: 14 Pulse Ox (%): 100 - Physical Exam General: Alert, In no apparent distress, Oriented x3, Obese HEENT: Atraumatic, Normocephalic Neck: JVD not distended Respiratory: Normal air movement Cardiovascular: Normal pulses, Regular rate/rhythm Capillary refill: <2 Seconds Gastrointestinal: Soft and benign Musculoskeletal: Other (left 2nd toe thickened and infected) Integumentary: Diabetic ulcer, Other (Cellulitis of left 1st and to a greater degree 2nd toe) Neurological: Normal speech, Other (GCS 15, NIHSS 2 for left leg drift and left sided sensation loss) Lymphatics: No axilla or inguinal lymphadenopathy External genitalia: Deferred Rectal: Deferred - Studies Laboratory Data (last 24 hrs) 01/23/24 01/23/24 01/23/24 13:16 13:16 13:16 WBC 4.90 Hgb 11.7 L Hct 35.8 L Plt Count 97 L PT 12.8 H INR 1.17 APTT 30.8 Sodium 135 L Potassium 3.3 L BUN 12 Creatinine 0.90 Glucose 146 H Magnesium 2.1 Total Bilirubin 2.3 H AST 43 H ALT 36 Alkaline Phosphatase 162 H <Nita Harkins Chauncey - Last Filed: 01/24/24 11:05> - Studies Laboratory Data (last 24 hrs) 01/23/24 01/23/24 01/23/24 13:16 13:16 13:16 WBC 4.90 Hgb 11.7 L Hct 35.8 L Plt Count 97 L PT 12.8 H INR 1.17 APTT 30.8 Sodium 135 L Potassium 3.3 L BUN 12 Creatinine 0.90 Glucose 146 H Magnesium 2.1 Total Bilirubin 2.3 H AST 43 H ALT 36 Alkaline Phosphatase 162 H <Johnnie Adam - Last Filed: 01/24/24 12:58> Assessment And Plan - Plan CVA 1. MRI of the brain + for 7x3mm acute right thalamus infarct 2. Echocardiogram and carotid Doppler - pending 3. Antiplatelet therapy and statin therapy, lovenox 40mg sq daily, pt allergic to ASA, Plavix 75mg po daily, Atorvastatin 40mg po q hs 4. Neurology consultation - Dr. Putnam consulted from ED 5. Physical therapy/Occupational Therapy/speech therapy evaluation 7. Neurochecks every 4 hours, NIH stroke scale every shift (currently 2) 8. DVT prophylaxis Osteomyelitis 1. Continue IV antibiotics - Vanco 1.75gm IV q12h, pharmacy to adjust - changed to 2gm BID 2. Continue with local wound care 3. Wound care consultation/surgical consultation - Dr. Ny consulted, 4. Gentle IV hydration - NS at 75ml/hr 5. Monitor and trend labs 6. Strict blood sugar monitoring, SSI ac and hs and Lantus 20units daily 7. Pain control Morphine 4mg q 4h prn pain 8. GI and DVT prophylaxis 01/23 PICC order for care home abx HTN Lisinopril 10mg po daily (usual dose 20mg), permissive HTN for now Code status Full <Nita Harkins - Last Filed: 01/24/24 11:05> - Plan Pt seen and examined. I agree withe the note by the EMULSIFICATION OPERATOR. Continue iv vanc 2gm iv BID. MRI shows right thalamus infarct. Consulted Neurology. Pt is allergic to aspirin. Continue plavix and atorvastatin. Gen surgeon will take pt to the OR on Friday. Will hold plavix tomorrow. <Johnnie Adam - Last Filed: 01/24/24 12:58>
[2024-01-24] MEDS ORDERED: D50W 25 GM/50 ML SYRINGE IV PRN (16:33)
[2024-01-24] MEDS ORDERED: GLUCAGON 1 MG/VIAL IM PRN (16:33)
[2024-01-24] MEDS ORDERED: D10W 125 ML IV PRN (16:41)
[2024-01-24] MEDS: INSULIN REGULAR (HUMAN) 100 UNIT/ML SQ SCH (20:08)
[2024-01-24] MEDS: Mupirocin NASAL 2 APPL/1 GM TUBE NAS SCH (21:00)
[2024-01-25 08:08] LABS: Absolute Eosinophils 0.1 K/uL (0-0.5); Absolute Lymphocytes (CBC) 0.6 K/uL (0.7-4.9); Absolute Monocytes 0.3 K/uL (0.1-1.3); Absolute Neutrophil 1.5 K/uL (1.8-8.0); Basophils % 0.4 % (0-1.3); Hematocrit 34.2 % (39.6-49.0); Hemoglobin 11.4 g/dL (13.6-17.9); Lymphocytes % 24.5 % (15.3-44.8); MCH 30.5 pg (27.0-35.0); MCHC 33.3 g/dL (32.0-36.0); MCV 91.8 fL (80-100); MPV 8.8 fL (7.6-11.3); Monocytes % 13.5 % (3.3-12.3); Neutrophils % 59.6 % (41.7-73.7); Nucleated Red Blood Cells % 0.2 % (0-0); Platelets 74 thou/uL (152-406); RBC Red Blood Cell Count 3.73 M/uL (4.33-5.43)
[2024-01-25 08:11] LABS: Albumin 2.7 g/dL (3.4-5.0); Albumin/Globulin Ratio 0.6 (1.1-1.8); Anion Gap 5.9 mEq/L (5.0-15.0); Globulin 4.6 g/dL (2.3-3.5); Potassium 3.9 mEq/L (3.5-5.1); Protein, Total 7.3 g/dL (6.4-8.2)
--- NOTE | 2024-01-25 10:17 | P.PN ---
Subjective Date of Service: 01/25/24 Primary Care Provider: Marysol Amaral Chief Complaint: CVA Subjective: No C/O voiced (remains with weakness, altered sensation to left upper and lower extremieties and left trunk/buttock) <Nita Harkinslen - Last Filed: 01/25/24 10:11> Date of Service: 01/25/24 <Johnnie Adam C - Last Filed: 01/25/24 12:35> Review of Systems 10-point ROS is otherwise unremarkable General: As per HPI Integumentary: As per HPI Neurological: As per HPI <Nita Harkinslen - Last Filed: 01/25/24 10:11> Physical Examination - Vital Signs Temperature: 98.3 F Blood Pressure: 140/79 Pulse: 82 Respirations: 16 Pulse Ox (%): 95 - Physical Exam General: Alert, In no apparent distress, Oriented x3, Obese HEENT: Atraumatic, Normocephalic Neck: Supple Respiratory: Normal air movement Cardiovascular: Normal pulses, Regular rate/rhythm Capillary refill: <2 Seconds Gastrointestinal: Soft and benign Musculoskeletal: Other (left second toe to be amputated tomorrow. Pt without questions at this time) Integumentary: Other (left 1st, 2nd toe with erythema and thickening) Neurological: Normal speech, Other (GCS 15, NIH 2, no changes) Lymphatics: No axilla or inguinal lymphadenopathy External genitalia: Deferred Rectal: Deferred <Nita Harkinslen - Last Filed: 01/25/24 10:11> Assessment And Plan - Plan CVA 1. MRI of the brain + for 7x3mm acute right thalamus infarct 2. Echocardiogram and carotid Doppler - pending 3. Antiplatelet therapy and statin therapy, lovenox 40mg sq daily, pt allergic to ASA, Plavix 75mg po daily, Atorvastatin 40mg po q hs 4. Neurology consultation - Dr. Putnam consulted from ED 5. Physical therapy/Occupational Therapy/speech therapy evaluation 7. Neurochecks every 4 hours, NIH stroke scale every shift (currently 2) 8. DVT prophylaxis Osteomyelitis 1. Continue IV antibiotics - Vanco 2gm IV BID 2. Continue with local wound care 3. Wound care consultation/surgical consultation - Dr. Ny consulted, plans OR for amputation Thursday 01/25. NPO post MN, hold Plavix today, no lovenox post 0900 01/24. Re-eval post surgery as pt's CVA is acute (pt allergic to ASA) 4. Gentle IV hydration - NS at 75ml/hr 5. Monitor and trend labs 6. Strict blood sugar monitoring, SSI ac and hs and Lantus 20units daily 7. Pain control Morphine 4mg q 4h prn pain 8. GI and DVT prophylaxis HTN Lisinopril 10mg po daily (usual dose 20mg), permissive HTN for now Code status Full <Nita Harkins - Last Filed: 01/25/24 10:11> - Plan Pt seen and examined. I agree with the note by the [employer]. Will resume plavix. Pt complains of left sided numbness. Last MRI shows right thalamus infarct. Gen surgeon will do amputation of the left 2nd toe. Continue iv vanc, lantus and other home meds. <Johnnie Adam - Last Filed: 01/25/24 12:35>
--- NOTE | 2024-01-25 12:24 | P.PN ---
Subjective Date of Service: 01/25/24 Primary Care Provider: Marysol Amaral Chief Complaint: CVA Patient states he feels somewhat more sluggish on his left side today and has decreased sensation as compared with yesterday. No new complaints related to the left second toe. Physical Examination - Vital Signs Temperature: 98 F Blood Pressure: 132/75 Pulse: 78 Respirations: 16 Pulse Ox (%): 96 - Physical Exam General: Alert, In no apparent distress, Cooperative HEENT: Atraumatic, Normocephalic Neck: Supple Respiratory: Clear to auscultation bilaterally, Normal air movement Cardiovascular: Regular rate/rhythm Gastrointestinal: Soft and benign Musculoskeletal: Scoliosis (Second toe of the left foot remains swollen red tender minimal drainage at this point improved from prior exam but continues to have significant cellulitis extending just beyond the metatarsophalangeal joint.) Neurological: Normal speech, Other (Patient states he has decreased strength when instructed to lift his arms and legs and has numbness in various patchy distribution in the arm and leg on the left side.), Abnormal sensation Assessment And Plan - Current Problems (Diagnosis) (1) Osteomyelitis of toe of left foot Current Visit: Yes Status: Acute Plan: Patient is a 58-year-old man who has infection/osteomyelitis of the second toe of the left foot. -As patient has a change in his neurologic status perceived by himself I recommend continued workup for his stroke to ensure there is no evolution of his thalamic stroke. -I have discussed the case with Dr. Mary huang who agrees to see the patient evaluate for any evolution of stroke and will continue medical management. -When patient is medically optimized I will proceed with surgery with regional anesthesia/local anesthesia to the second toe. -Okay to anticoagulate patient if needed prior to any surgical intervention. -I will standby until patient cleared medically for surgical intervention. -Continue antibiotic coverage and local wound care with Louis.
--- NOTE | 2024-01-25 12:47 | P.PN ---
Date of Service: 01/25/24 Urgently requested to come to re-evaluate. Dr. Ny was examining pt and the pt complained of worsening numbness/tingling in left arm and trunk. GCS 15, NIH 2, EKG NSR with 1st degree block, FSBS 189. CT called and pt taken for re-scan. Pt allergic to ASA. Have been giving lovenox and plavix. Dr. Ny okay with not holding anticoagulation for surgical procedure scheduled tomorrow. VS 132/75, 78, 16, 98, 96%RA. Denies pain <Nita Harkins - Last Filed: 01/25/24 12:39> Pt seen and examined. I agree with the note by the DIRECTOR OF [employer]. Will continue plavix <Johnnie Adam - Last Filed: 02/04/24 22:28>
--- NOTE | 2024-01-25 13:49 | RAD REPORT ---
EXAM DESCRIPTION: CT - Head Brain Wo Cont - 01/25/2024 1:32 pm CLINICAL HISTORY: CVA COMPARISON: January 23, [address] TECHNIQUE: Computed axial tomography of the head was obtained. IV contrast was not requested. All CT scans are performed using dose optimization technique as appropriate and may include automated exposure control or mA/KV adjustment according to patient size. FINDINGS: The ventricles are normal in caliber No extra-axial fluid collection is noted. 7 millimeter low-density area within right thalamus is present. It has developed since the prior CT a nd is unchanged from the prior MRI and is compatible with an early subacute infarction. No bleed Fluid within the sinuses/ mastoids is not seen. IMPRESSION: 7 millimeter early subacute right thalamus infarction unchanged in size from the prior M RI
--- NOTE | 2024-01-25 16:23 | CON ---
Date of Consultation: 01/24/2024 Brief History Of Present Illness: The patient is a 58-year-old male with past medical history of sev ere morbid obesity for which he had a gastric bypass surgery, losing approximately 200 pounds. He is currently down to approximately 400 pounds from his maximum weight of around 600 pounds. He has a h istory of fatty steatosis, cirrhosis, diabetes, hypertension, peripheral vascular disease, neuropathy , left foot wound, and was noted to have some weakness on his left side of his body, numbness, tingli ng, and as such came to the emergency room with complaints and possible stroke. He was worked up in the ER and noted to have a left medial thalamic stroke and as such is admitted for management of this current problem. During his workup, he was noted to have mild cortical irregularity of the distal a spect of the second toe of his left foot and as such, I am consulted for evaluation of this toe with possible infection/osteomyelitis of this toe. The patient states he has pain in his toe at times and he has noted increased drainage and increased swelling, redness to this toe over the course of sever al days prior to his arrival. However, he has noted that because of his significant weakness, malais e, fatigue, and left-sided hemiparesis, he is more concerned about this currently as he notes that th is is a new finding for him and he is aware of his diagnosis of a stroke on this side. He states he continues to have the ability to move the left side of his body as well as right side of his body, bu t he has decreased sensation and decreased strength overall. Past Medical History: Hypertension, peripheral vascular disease, diabetes, morbid obesity, hyperlipi demia, depression, obstructive sleep apnea, cirrhosis, fatty steatosis of the liver, diabetic neuropa thy, venous insufficiency. He has had a CVA before in the past. Past Surgical History: Includes gastric bypass, bilateral knee surgery, venous ablation surgery for varicose veins, and a left great toe surgery in the past. Family History: Significant for hypertension and stroke in his father. Social History: He denies smoking, alcohol, or recreational drug use. He has no children. He is cu rrently on disability. Allergies: HIS ALLERGIES INCLUDE CIPRO, PENICILLIN, ASPIRIN, PROPOFOL, AND FLU VACCINE. Home Medications: Include Amaryl, metformin, paroxetine, KCl, lisinopril, atorvastatin, Lasix, Tradj enta, Protonix, Inderal. Review of Systems: Ten-point review of systems other than HPI, currently denies. Physical Examination: General: He is awake, alert, oriented. Psychiatric: He is appropriate, conversive. HEENT: He is normocephalic. His sclerae are anicteric. His mucous membranes are moist. His oropha rynx is clear. His dentition is suboptimal with poor dentition. Otherwise, no other findings. Neck: Supple without JVD. Chest: In the patient's excursion. Cardiovascular: Regular rate and rhythm. Pulmonary: Clear to auscultation bilaterally. Abdomen: Soft. Extremities: There was no clubbing, cyanosis, or edema. However, focused examination of the left gr eat toe shows swelling, tenderness, redness, drainage consistent with infection of this area extendin g up to the metatarsophalangeal joint and slightly beyond. There were no other significant findings in this area. Neurologic: He has decreased strength on the left as compared to right, but is able to move against gravity and follows commands appropriately in both upper and lower extremities. Strength is approxim ately 4/5 in this region as compared with the other side on the right. Vital Signs: His blood pressure at the time of my examination was 139/71, his heart rate was 79, res piratory rate 16, temperature was 98.6, SpO2 was 96% on room air. Laboratory Data: Revealed a white blood count of 2.9, hemoglobin is 10.9, hematocrit 33.3, platelet count was 76. PT 12.8, INR 1.17, PTT 30.8. His sodium 136, potassium 4 3.4, chloride 105, carbon di oxide 27, BUN 12, creatinine is 0.6, glucose was 121. His total bilirubin was 1.9, down from 2.3 on admission. His AST 38, ALT 31, alkaline phosphatase was 138. His creatine kinase was 106. Troponin -I high-sensitivity was 7.9. He had imaging performed, which included a MRI of the brain on [facility] is officially read by 7 x 3 mm acute infarction of the right thalamus. He additionally had a fo ot CT, which was officially read on 01/23/2024 as mild cortical irregularity distal aspect second dis buck phalanx. First metatarsal head and base of the first proximal phalanx. One or more these areas could represent osteomyelitis should be correlated clinically. MRI may be helpful. He had a head CT performed on 01/22 and a head CTA and neck CTA performed as well, officially read as CT head was off icially read as no acute intracranial abnormality seen in the patient's assistance persists. MRI of the brain would be helpful. The CT of the head was officially read as no significant abnormality dis played and his CT a neck was officially read as no significant abnormality seen. Assessment And Plan: 1.This is a 58-year-old male who comes in with signs and symptoms of a thalamic stroke with some res idual effect at this time. 2.In addition, he has infection of his left second toe with possible osteomyelitis present. 3.I have discussed the plan with Dr. Adam and have recommended medical optimization prior to any c onsideration of surgery at this time. When they feel, he is safe to proceed with surgery. We will p roceed with surgery. However, we will not consider general anesthesia at this point and we will try to do this under minimal sedation and as such, we will plan for local anesthesia and possibly IV or m ore likely regional anesthesia will be more likely in this scenario. 4.Continue IV antibiotics. 5.Continue local wound care with Vashe wraps, elevation every day, until medical situation is optimi zed and we ensured that there is no evolution of the stroke. 6.I am okay with patient being fully anticoagulated at this point and can proceed with surgery on a less emergent basis after his stroke has been evaluated appropriately and he is appropriately optimiz ed for surgery. I have explained the risks, benefits, and alternatives of the above stated plan, the patient agrees to proceed as indicated. I have explained the risks, benefits, and alternatives of a mputation of second toe, including but not limited to bleeding, infection, damage to the tissue, need further operative procedures, stroke, heart attack, blood clots, and other unforeseen complications in the perioperative period. The patient agrees to proceed as indicated. SANDRA/MARIANA Voice ID: [id number] Report ID: [id number]
[2024-01-26 07:20] LABS: Albumin 3.1 g/dL (3.4-5.0); Albumin/Globulin Ratio 0.6 (1.1-1.8); Bilirubin Total 2.6 mg/dL (0.2-1.0); Globulin 5.4 g/dL (2.3-3.5); Protein, Total 8.5 g/dL (6.4-8.2)
--- NOTE | 2024-01-26 08:20 | P.PN ---
Subjective Date of Service: 01/26/24 Primary Care Provider: Marysol Amaral Chief Complaint: CVA CVA,MRI of the brain + for 7x3mm acute right thalamus infarct, allergy to aspirin, echo Doppler pending Osteomyelitis, on IV antibiotics, scheduled for amputation OR for amputation Thursday 01/25. - Physical Exam General: Alert, In no apparent distress, Oriented x3, Obese HEENT: Atraumatic, Normocephalic Neck: Supple Respiratory: Normal air movement Cardiovascular: Normal pulses, Regular rate/rhythm Capillary refill: <2 Seconds Gastrointestinal: Soft and benign Musculoskeletal: Other (left second toe to be amputated tomorrow. Pt without questions at this time) Integumentary: Other (left 1st, 2nd toe with erythema and thickening) Neurological: Normal speech, Other (GCS 15 Lymphatics: No axilla or inguinal lymphadenopathy Review of Systems Per HPI Physical Examination - Vital Signs Temperature: 97.8 F Blood Pressure: 147/72 Pulse: 75 Respirations: 16 Pulse Ox (%): 95 Assessment And Plan - Plan Assessment And Plan CVA left-sided weakness Neurology consult, fall precaution inpatient rehab eval 1. MRI of the brain + for 7x3mm acute right thalamus infarct 2. Echocardiogram and carotid Doppler - pending 3. Antiplatelet therapy and statin therapy, lovenox 40mg sq daily, pt allergic to ASA, Plavix 75mg po daily, Atorvastatin 40mg po q hs 4. Neurology consultation - Dr. Putnam consulted from ED 5. Physical therapy/Occupational Therapy/speech therapy evaluation 7. Neurochecks every 4 hours, NIH stroke scale every shift (currently 2) 8. DVT prophylaxis Osteomyelitis 1. Surgery following, continue IV antibiotics - Vanco 2gm IV BID 2. Continue with local wound care 3. Wound care consultation/surgical consultation - Dr. Ny consulted, plans OR for amputation Thursday 01/25. NPO post MN, hold Plavix today, no lovenox post 0900 01/24. Re-eval post surgery as pt's CVA is acute (pt allergic to ASA) 4. Gentle IV hydration - NS at 75ml/hr 5. Monitor and trend labs 6. Strict blood sugar monitoring, SSI ac and hs and Lantus 20units daily 7. Pain control Morphine 4mg q 4h prn pain 8. GI and DVT prophylaxis Left foot MRI 01/25 01/25 amputation 2nd of LEFT Toe foot Osteomyelitis PT/OT eval HTN Lisinopril 10mg po daily (usual dose 20mg), permissive HTN for now Code status full code DVT Full Critical Care: No Time Spent Managing PTS Care (In Minutes): 35
[2024-01-26] MEDS: FOLIC ACID 1 MG in NA CHLORIDE 0.9% 50 ML IV SCH (09:42)
[2024-01-26] MEDS: dexAMETHasone 10 MG/ML VIAL ONE (12:12)
[2024-01-26] MEDS: EPINEPHRINE 1 MG/ML VIAL ONE (12:12)
[2024-01-26] MEDS: SODIUM BICARB 50 MEQ/50ML VIAL ONE (12:15)
[2024-01-26] MEDS: ROPLVACAINE HCL 40 ML ONE (12:16)
--- NOTE | 2024-01-26 13:04 | EKG ---
Test Date: 2024-01-23 Test Time: 12:58:58 Superintendent Stevedoring: DEBORAH MEASUREMENT RESULTS: Intervals: Rate: 78 OR: 164 QRSD: 94 QT: 384 QTc: 437 Antonito: P: 18 OR: 164 QRS: 24 T: 69 INTERPRETIVE STATEMENTS: Normal sinus rhythm Nonspecific T wave abnormality Abnormal ECG Compared to ECG 11/26/2021 11:12:50 T-wave abnormality now present Ventricular premature complex(es) no longer present ST (T wave) deviation no longer present Electronically Signed On 01-26-24 12:57:33 CDT by Saqib Riggs
[2024-01-26] MEDS: LIDOCAINE 1% MPF 5 ML VIAL ONE (14:18)
[2024-01-26] MEDS: propofoL 200 MG/20 ML VIAL IV ONE (14:19)
[2024-01-26] MEDS ORDERED: propofoL 200 MG/20 ML VIAL IV ONE ×2 (15:16→15:51)
[2024-01-26] MEDS ORDERED: LIDOCAINE 2% MPF 5 ML VIAL ONE (15:16)
[2024-01-26] MEDS: BUPIVACAINE 0.25% PF 30 ML VIAL ONE (15:16)
[2024-01-26] MEDS: LIDOCAINE HCL/EPINEPHRINE 20 ML MDV ONE (15:53)
--- NOTE | 2024-01-26 16:17 | P.OP ---
Preoperative diagnosis: 2nd of LEFT Toe foot Osteomyelitis Postoperative diagnosis: 2nd of LEFT Toe foot Osteomyelitis Primary procedure: Amputation of 2nd of LEFT Toe foot Anesthesia: Regional + Local Estimated blood loss: <10cc Specimen: 2nd of LEFT Toe foot Findings: 2nd of LEFT Toe foot Osteomyelitis Complications: None Transferred to: Recovery Room Condition: Good
--- NOTE | 2024-01-27 02:30 | OP ---
Date of Procedure: 01/26/2024 Surgeon: Ney Ny MD, Preoperative Diagnosis: Second toe of left foot osteomyelitis. Postoperative Diagnosis: Second toe of left foot osteomyelitis. Procedure Performed: Amputation of second toe of the left foot. Anesthesia: Regional plus local. Estimated Blood Loss: 10 cc. Specimen: Second toe of the left foot. Findings: Second toe of left foot osteomyelitis. Complications: None. Patient transferred to recovery room in good condition. Procedure In Detail: After informed consent was obtained, patient was brought to the operating room, prepped in the usual sterile fashion. After adequate anesthesia was achieved, I anesthetized the ar ea of the second toe of the left foot down to subcutaneous tissues. The patient had good regional an esthesia at this point without any reaction to manipulation. At this point, I made a circumferential incision based on a plantar flap and teed out over the metatarsophalangeal joint using a 15 blade do wn to subcutaneous tissues. Electrocautery was used to dissect down through subcutaneous planes ulti mately dissecting down to the joint space which was palpated at the metatarsophalangeal joint. At th is point, I used electrocautery and sharp dissection to dissect out the metatarsophalangeal joint in its entirety. Ultimately ligating the structures using electrocautery. At this point, all nonviable tissue was debrided and sent off with a second toe after it was ligated and sent off for pathologic examination. The area was inspected at this point. I trimmed the skin for an appropriate closure ba sed on the plantar flap using tenotomy scissors. I irrigated the cavity copiously multiple times, cl eansed the area quite well. Ultimately, hemostasis was achieved easily with electrocautery and the s kin was closed using interrupted 3-0 nylon sutures and a sterile dressing placed over top. The patie nt tolerated procedure well without incident or complication, transferred to PACU in good condition. All counts were correct at the end of the case. TK/MODL Voice ID: [id number] Report ID: [id number]
[2024-01-27 06:43] LABS: Albumin 2.8 g/dL (3.4-5.0); Anion Gap 6.9 mEq/L (5.0-15.0); Magnesium 2.2 mg/dL (1.6-2.4); Phosphorus 2.1 mg/dL (2.5-4.9); Potassium 3.9 mEq/L (3.5-5.1)
[2024-01-27] MEDS: FOLIC ACID 1 MG TABLET PO SCH (08:24)
--- NOTE | 2024-01-27 09:34 | P.PN ---
Subjective Date of Service: 01/27/24 Primary Care Provider: Marysol Amaral Chief Complaint: CVA CVA,MRI of the brain + for 7x3mm acute right thalamus infarct, allergy to aspirin, echo Doppler pending Osteomyelitis, on IV antibiotics, scheduled for amputation OR for amputation Thursday 01/25. Amputation of 2nd of LEFT Toe foot Pain control as needed on analgesics, afebrile overnight PT, OT eval - Physical Exam General: Alert, In no apparent distress, Oriented x3, Obese HEENT: Atraumatic, Normocephalic Neck: Supple Respiratory: Normal air movement Cardiovascular: Normal pulses, Regular rate/rhythm Capillary refill: <2 Seconds Gastrointestinal: Soft and benign Musculoskeletal: Other (left second toe to be amputated tomorrow. Integumentary: Other (2nd ) toe amputation, dry surgical dressing Neurological: Normal speech, Other (GCS 15 Lymphatics: No axilla or inguinal lymphadenopathy Review of Systems per HPI Physical Examination - Vital Signs Temperature: 97.5 F Blood Pressure: 123/59 Pulse: 66 Respirations: 16 Pulse Ox (%): 96 Assessment And Plan - Plan Assessment And Plan CVA left-sided weakness Neurology consult, fall precaution inpatient rehab eval 1. MRI of the brain + for 7x3mm acute right thalamus infarct 2. Echocardiogram and carotid Doppler - pending 3. Antiplatelet therapy and statin therapy, lovenox 40mg sq daily, pt allergic to ASA, Plavix 75mg po daily, Atorvastatin 40mg po q hs 4. Neurology consultation - Dr. Putnam consulted from ED 5. Physical therapy/Occupational Therapy/speech therapy evaluation 7. Neurochecks every 4 hours, NIH stroke scale every shift (currently 2) 8. DVT prophylaxis Osteomyelitis 1. Surgery following, continue IV antibiotics - Vanco 2gm IV BID 2. Continue with local wound care 3. Wound care consultation/surgical consultation - Dr. Ny consulted, plans OR for amputation Thursday 01/25. NPO post MN, hold Plavix today, no lovenox post 0900 01/24. Re-eval post surgery as pt's CVA is acute (pt allergic to ASA) 4. Gentle IV hydration - NS at 75ml/hr 5. Monitor and trend labs 6. Strict blood sugar monitoring, SSI ac and hs and Lantus 20units daily 7. Pain control Morphine 4mg q 4h prn pain 8. GI and DVT prophylaxis Left foot MRI 01/25 01/25 amputation 2nd of LEFT Toe foot Osteomyelitis PT/OT eval HTN Lisinopril 10mg po daily (usual dose 20mg), permissive HTN for now Code status full code DVT Full - Code Status/Comfort Care Code Status: Full Code Critical Care: No Time Spent Managing PTS Care (In Minutes): 35
--- NOTE | 2024-01-27 23:39 | CON ---
Reason For Consultation: Consultation called because of a right thalamic stroke is acute. He has a chronic left thalamic stroke. History Of Present Illness: Mr. Tilley is a 58-year-old patient with morbid obesity, who had gastri c bypass surgery decreasing from 600 pounds to 390 pounds. He has fatty liver, diabetes mellitus, hy pertension, peripheral vascular disease, left toe gangrene that has just recently amputated, who deve loped a 2-day history of left-sided numbness more than weakness. NIH Stroke Scale was 2. His imagin g study with CT scan showed no acute intracranial abnormality on 01/23/2024. However, his subsequent brain MRI identified a 7 x 3 mm acute infarct in the right thalamus. He had a 2 mm infarct that is chronic in the left medial thalamus. The location of the patient's acute stroke does explain his lef t-sided arm and leg and slight face numbness without significant weakness. He is treated with Plavix 75 mg daily. He is allergic to aspirin. He has Lipitor 40 mg at bedtime, folic acid 1 mg daily, fluid management with Lasix as is insulin sliding scale, Prinivil with permiss russell hypertension in addition to propranolol. He is also on vancomycin. He has had toe gangrene. He has had amputation of the second toe of the left foot due to osteomyelitis. Past Medical History: Diabetes mellitus type 2, morbid obesity, peripheral vascular disease, hyperte nsion, dyslipidemia, depression, obstructive sleep apnea, cirrhosis of the liver, diabetes with diabe tic neuropathy, venous insufficiency, stroke, gastric bypass surgery, bilateral knee surgery, venous reflux surgery, left second toe amputation. Family History: Hypertension, stroke in father. Social History: No alcohol, tobacco, or IV drug abuse. Allergies: CIPROFLOXACIN, PENICILLIN, ASPIRIN, PROPOFOL, FLU VACCINE. Medications: Amaryl 4 mg twice daily, metformin 1000 mg twice daily, paroxetine 40 mg daily, potassi um 10 mEq daily, lisinopril 10 mg daily, atorvastatin 20 mg daily, Lasix 40 mg daily, Tradjenta 5 mg daily, Protonix 40 mg daily, Inderal 10 mg twice daily. Review of Systems: The patient has had issue of pain in the left foot. No loss of sensation on the left side and otherw ise unremarkable review of systems. Physical Examination: Vital Signs: Blood pressure 139/76, pulse 65, respiratory rate 16, temperature 98.2, O2 saturation 9 7%. General: Mr. Tilley is resting comfortably in his bed. He is in no acute distress. The left foot is bandaged after he had amputation of the second toe on the left. He has stasis changes noted from the mid leg downwards; change in texture, tone, color of the skin. Chest: Clear. Heart: Regular. Extremities: Again, some stasis changes noted to lower extremities and upper extremities. No signif icant abnormalities in the upper extremities. Neurological: He has focal neurologic deficits involving left-sided numbness in the upper and lower extremities compared to the right side and he says the face is symmetric. Strength is slightly weak around 4/5 in the left lower extremity and 5- to 4/5 in the left upper extremity. The right side is 5/5. Asymmetric, depressed reflexes throughout. He was ambulated without any assistance and was fou nd to be independent. He did not require any therapy there. Assessment: Mr. Tilley is a 58-year-old patient with bilateral thalamic strokes. He has multiple s troke risk factors, diabetes mellitus, hypertension, dyslipidemia. He has a gangrene and amputation of the left second toe, on IV antibiotics and has had renal insufficiency and dehydration. Plan: At this point, continue with Plavix, folic acid, statin. Permissive hypertension and he may b enefit from outpatient physical therapy course. Continue antibiotics per the Surgery team. After discharge, follow up with Dr. Edmar zayas within a month. RAYNE/MARIANA Voice ID: [id number] Report ID: [id number]
[2024-01-28 00:36] VITALS: O2SAT 95
[2024-01-28 04:35] LABS: Albumin 2.7 g/dL (3.4-5.0); Anion Gap 3.6 mEq/L (5.0-15.0); Potassium 3.6 mEq/L (3.5-5.1)
[2024-01-28 04:36] LABS: Phosphorus 1.5 mg/dL (2.5-4.9)
[2024-01-28] MEDS: POTASS/SODIUM PHOSPHATE 1 PKT POWD.PACK PO SCH (06:26)
--- NOTE | 2024-01-28 06:59 | ECHO ---
HEIGHT: 6 ft 8 in WEIGHT: 379 lb 0 oz DATE OF STUDY: 01/27/[address]: Nita Harkins INJECTION MOLDING ENGINEER-BC 2-DIMENSIONAL: YES M.MODE: YES DOPPLER: YES COLOR FLOW: YES TDS: PORTABLE: YES DEFINITY: BUBBLE STUDY: DIAGNOSIS: CEREBRAL VASCULAR ACCIDENT CARDIAC HISTORY: CATHERIZATION: NO SURGERY: NO PROSTHETIC VALVE: NO PACEMAKER: NO MEASUREMENTS (cm) DIASTOLIC (NORMALS) SYSTOLIC (NORMALS) IVSd 1.3 (0.6-1.2) LA Diam 3.8 (1.9-4.0) LVEF 60-65% LVIDd 4.8 (3.5-5.7) LVIDs 3.5 (2.0-3.5) %FS 27% LVPWd 1.4 (0.6-1.2) Ao Diam 2.8 (2.0-3.7) 2 DIMENSIONAL ASSESSMENT: RIGHT ATRIUM: NORMAL LEFT ATRIUM: NORMAL RIGHT VENTRICLE: NORMAL LEFT VENTRICLE: NORMAL TRICUSPID VALVE: NORMAL MITRAL VALVE: NORMAL PULMONIC VALVE: NORMAL AORTIC VALVE: NORMAL PERICARDIAL EFFUSION: NONE AORTIC ROOT: NORMAL LEFT VENTRICULAR WALL MOTION: NORMAL DOPPLER/COLOR FLOW: NORMAL COMMENTS: 1. NORMAL LEFT VENTRICULAR EJECTION FRACTION 60-65% 2. NORMAL WALL MOTION 3. NORMAL DIASTOLIC FUNCTION TECHNOLOGIST: GALINA ZAVALA
--- NOTE | 2024-01-28 08:53 | P.DS ---
Admission Date: 01/23/24 Discharge Date: 01/29/24 Primary Care Provider: Marysol Amaral Disposition: DC HOME/HOME HEALTH CARE Discharge Condition: GOOD Reason for Admission: CVA Brief History of Present Illness: Mr. Tilley is a 58-year-old male with a past medical history of obesity for which he had gastric bypass. He has lost from 600 pounds down to 390. He has a past medical history of fatty liver induced cirrhosis, diabetes, hypertension, peripheral vascular disease, neuropathy, left foot wound, and on MRI is noted to have a 2 mm remote lacunar infarct of the left medial thalamus who presents to [facility] ED for 2-day history of left-sided numbness and weakness. Evaluation in the emergency department reveals a GCS of 15 with a NIH of 2. Laboratory evaluation reveals a white count of 4.9, H/H of 11.7/35.8 with platelets of 97. Electrolytes showed a sodium 135, potassium 3.3, chloride 102, bicarb 28, glucose 146, creatinine 0.9. LFTs with AST 43, ALT 36, alk phos 162, total bili 2.3, direct bili 0.6, magnesium 2.1, troponin 6.1. Apart from this acute stroke he has a reddened left great toe and second toe. CT evaluation shows "mild cortical irregularity distal aspect of the second distal phalanx, first metatarsal head and base of the first proximal phalanx. 1 or more of these areas could represent osteomyelitis". Dr. Putnam was consulted from the emergency department for this acute CVA and we will consult Dr. Ny for treatment of osteomyelitis. - Physical Exam General: Alert, In no apparent distress, Oriented x3, Obese HEENT: Atraumatic, Normocephalic Neck: Supple Respiratory: Normal air movement Cardiovascular: Regular rate/rhythm, Normal S1 S2 Capillary refill: <2 Seconds Gastrointestinal: Soft and benign Musculoskeletal: Other (left great toe and to a larger degree second toe with erythema, thickening, and 2nd toe with ulceration to distal toe under nail) Integumentary: Other (as above) Neurological: Normal speech, Normal tone, Normal affect, Other (left arm without drift but some loss of sensation, left leg weak 3/5 with drift and loss of sensation) Lymphatics: No axilla or inguinal lymphadenopathy External genitalia: Deferred Rectal: Deferred (GCS 15, NIH 2 for sensation loss and left lower ext drift) Hospital Course: 58 year-old male patient presented with left-sided weakness, gangrene of the toe, Was noted to have CVA left-sided weakness. Osteomyelitis of the toe with a toe amputation.Thursday 01/25. Amputation of 2nd of LEFT Toe foot by Dr Ny. Condition improved with physical therapy, IV antibiotics, wound care. Surgical evaluation and treatment of gangrene amputation of the toe. Patient tolerating diet, stable for discharge to home with follow-up appointment with primary care physician. Follow-up with surgery after discharge. PROBLEM: Gangrene of the toe with toe amputation-.Thursday 01/25. Amputation of 2nd of LEFT Toe foot by Dr Ny. Follow-up with Dr. Ny. after discharge wound care changes CVA with left-sided weakness discharge home with home health with rolling walker, fall precaution Diabetes, continue diabetic diet, resume home medications Hypertension resume home antihypertensive Patient demonstrated seen changes with nurse prior to discharge Discharged home on Bactrim 1 Po p.o. twice daily Follow-up with wound care Continue home medicines as previously prescribed GOAL: Clear understanding of disease process INSTRUCTIONS: Physician Discharge Instructions: -Follow-up with PCP in 1 to 2 weeks -Please call Dr. Parisi at [phone] if any questions regarding hospital stay -Please call nursing station at [phone] if any nursing or medication questions -Return to the emergency room if symptoms worsen Diet: ADA, low sodium Activity: Fall precautions Vital Signs/Physical Exam: Temp Pulse Resp BP Pulse Ox 97.5 F 66 16 123/59 L 96 01/28/24 08:48 01/28/24 08:48 01/28/24 08:48 01/28/24 08:48 01/28/24 08:48 Laboratory Data at Discharge: WBC Cancelled 01/26/24 08:57 Hgb Cancelled 01/26/24 08:57 Hct Cancelled 01/26/24 08:57 Plt Count Cancelled 01/26/24 08:57 PT 12.8 SECONDS (9.5-12.5) H 01/23/24 13:16 INR 1.17 01/23/24 13:16 APTT 30.8 SECONDS (24.3-36.9) 01/23/24 13:16 Sodium 140 mEq/L (136-145) D 01/28/24 03:37 Potassium 3.6 mEq/L (3.5-5.1) 01/28/24 03:37 BUN 15 mg/dL (7-18) 01/28/24 03:37 Creatinine 0.64 mg/dL (0.70-1.30) L 01/28/24 03:37 Glucose 238 mg/dL (74-106) H 01/28/24 03:37 Phosphorus 1.5 mg/dL (2.5-4.9) L* 01/28/24 03:37 Magnesium 2.0 mg/dL (1.6-2.4) 01/28/24 03:37 Total Bilirubin 2.6 mg/dL (0.2-1.0) H 01/26/24 06:15 AST 52 U/L (15-37) H 01/26/24 06:15 ALT 36 U/L (16-61) 01/26/24 06:15 Alkaline Phosphatase 161 U/L (45-117) H 01/26/24 06:15 Triglycerides 153 mg/dL (<150) H 01/24/24 06:37 Cholesterol 126 mg/dL (<200) 01/24/24 06:37 HDL Cholesterol 33 mg/dL (40-60) L 01/24/24 06:37 Cholesterol/HDL Ratio 3.82 01/24/24 06:37 Home Medications: Glimepiride [Amaryl*] 4 mg PO BID 09/26/20 Metformin HCl 1,000 mg PO BID 09/26/20 PARoxetine HCL [Paroxetine HCl] 40 mg PO DAILY 09/26/20 Potassium Chloride 10 meq PO BID 09/26/20 lisinopriL [Lisinopril] 20 mg PO BID 11/27/21 Atorvastatin Calcium 20 mg PO DAILY 01/23/24 Furosemide [Lasix] 40 mg PO DAILY 01/23/24 Linagliptin [Tradjenta] 5 mg PO DAILY 01/23/24 Pantoprazole [Protonix Tab*] 40 mg PO DAILY 01/23/24 Propranolol [Inderal*] 10 mg PO BID 01/23/24 Smz./Tmp. [Bactrim Ds 800 MG/160 MG] 1 each PO DAILY 7 Days #14 tab 01/28/24 New Medications: Smz./Tmp. [Bactrim Ds 800 MG/160 MG] 1 each PO DAILY 7 Days #14 tab Physician Discharge Instructions: Home Health arranged: [facility] P: [phone] F: [phone] Bariatric wheeled walker ordered: [facility] Address: [address] [place] [address] [id number], [place] [address] 58 year-old male patient presented with left-sided weakness, gangrene of the toe, Was noted to have CVA left-sided weakness. Osteomyelitis of the toe with a toe amputation.Thursday 01/25. Amputation of 2nd of LEFT Toe foot by Dr Ny. Condition improved with physical therapy, IV antibiotics, wound care. Surgical evaluation and treatment of gangrene of the toe. Patient tolerating diet, stable for discharge to home with follow-up appointment with primary care physician. Follow-up with surgery after discharge PROBLEM: Gangrene of the toe with toe amputation-.Thursday 01/25. Amputation of 2nd of LEFT Toe foot by Dr Ny. Follow-up with Dr. Ny. after discharge wound care changes CVA with left-sided weakness discharge home with home health with rolling walker, fall precaution Diabetes, continue diabetic diet, resume home medications-recommend strict blood glucose control to prevent worsening of diabetic foot infection Hypertension resume home antihypertensive- Keep blood pressure, blood sugar log, take to primary care physician Discharge prescriptions Bactrim 1 p.o. twice daily x 7-day #14 Wound care as instructed by nurse during inpatient stay Continue home medicines as previously prescribed GOAL: Clear understanding of disease process INSTRUCTIONS: Physician Discharge Instructions: -Follow-up with PCP in 1 to 2 weeks -Please call Dr. Parisi at [phone] if any questions regarding hospital stay -Please call nursing station at [phone] if any nursing or medication questions -Return to the emergency room if symptoms worsen Diet: ADA, low sodium Activity: Fall precautions Followup: Ailin Zheng NP [Primary Care Provider] - Ney Ny MD [ACTIVE - CAN ADMIT] - Time spent managing pt's care (in minutes): 55
[2024-01-28] MEDS: MORPHINE 4 MG/ML SYR IV PRN (09:45)
[2024-01-28 12:15] VITALS: BP 146/78; TEMP 97.6
--- NOTE | 2024-01-28 13:13 | EKG ---
Test Date: 2024-01-25 Test Time: 11:56:36 Audio Visual Production Specialist: JEMAL MEASUREMENT RESULTS: Intervals: Rate: 82 CA: 204 QRSD: 98 QT: 382 QTc: 446 Bird In Hand: P: 47 CA: 204 QRS: 36 T: 59 INTERPRETIVE STATEMENTS: Normal sinus rhythm Normal ECG Compared to ECG 01/23/2024 12:58:58 T-wave abnormality no longer present Electronically Signed On 01-28-24 13:07:52 CDT by Saqib Riggs
[2024-01-28] MEDS ORDERED: DOXYCYCLINE 100 MG CAP PO SCH (21:00)
== END 2024-01-28 15:52 | disposition home health service (06) | DRG 616 ==
LOC: ER 12:10 → ERHOLD 14:50 → 4TH 18:47
PROVIDERS: ADMIT Hospitalist; ATTEND Hospitalist
PROC: 0Y6S0Z0 Detachment at Left 2nd Toe, Complete, Open Approach (ICD-10-PCS; principal; 2024-01-26 16:45)
DX: E11.69 Type 2 diabetes mellitus with other specified complication (principal); I63.9 Cerebral infarction, unspecified; E11.52 Type 2 diabetes mellitus with diabetic peripheral angiopathy with gangrene; G81.94 Hemiplegia, unspecified affecting left nondominant side; Z68.41 Body mass index [BMI] 40.0-44.9, adult; M86.172 Other acute osteomyelitis, left ankle and foot; E11.40 Type 2 diabetes mellitus with diabetic neuropathy, unspecified; E66.01 Morbid (severe) obesity due to excess calories; L03.032 Cellulitis of left toe; E86.0 Dehydration; N28.9 Disorder of kidney and ureter, unspecified; I10 Essential (primary) hypertension; R29.702 NIHSS score 2; Z88.0 Allergy status to penicillin; Z88.6 Allergy status to analgesic agent; Z88.7 Allergy status to serum and vaccine; Z98.84 Bariatric surgery status; Z79.84 Long term (current) use of oral hypoglycemic drugs; Z79.899 Other long term (current) drug therapy
CPT/HCPCS: 36415; 70450; 70496; 70498; 70551; 71045; 73700; 80048; 80053; 80061; 80069; 80076; 80202; 82140; 82550; 82565; 82947; 83735; 84484; 85025; 85610; 85730; 88305; 88311; 93005; 93306; 96374; 97110; 97116; 97161; 97165; 97530; 99285; C9113; J0171; J1100; J1650; J1815; J2001; J2704; J7030; J7040; Q9967

== ENCOUNTER 2024-02-03 10:20 | Observation (INO) | payer OTHER ==
[2024-02-03] MEDS ORDERED: NA CHLORIDE 0.9% 500 ML ONE (10:35)
[2024-02-03 10:58] LABS: Absolute Eosinophils 0.1 K/uL (0-0.5); Absolute Lymphocytes (CBC) 0.8 K/uL (0.7-4.9); Absolute Monocytes 0.7 K/uL (0.1-1.3); Absolute Neutrophil 3.8 K/uL (1.8-8.0); Basophils % 0.7 % (0-1.3); Eosinophils % 2.1 % (0-4.4); Hematocrit 37.8 % (39.6-49.0); Hemoglobin 12.2 g/dL (13.6-17.9); Lymphocytes % 15.1 % (15.3-44.8); MCH 29.6 pg (27.0-35.0); MCHC 32.4 g/dL (32.0-36.0); MCV 91.4 fL (80-100); MPV 8.9 fL (7.6-11.3); Monocytes % 13.2 % (3.3-12.3); Neutrophils % 68.9 % (41.7-73.7); Platelets 107 thou/uL (152-406); RBC Red Blood Cell Count 4.13 M/uL (4.33-5.43); Red Cell Distribution Width 15.4 % (12.1-15.2)
[2024-02-03 11:04] LABS: PT Prothrombin Time 13.1 SECONDS (9.5-12.5); PTT, Activated Partial Thromb 32.2 SECONDS (24.3-36.9); Protime INR 1.2
[2024-02-03 11:19] LABS: Albumin 3.1 g/dL (3.4-5.0); Albumin/Globulin Ratio 0.7 (1.1-1.8); Anion Gap 3.7 mEq/L (5.0-15.0); Bilirubin Total 1.9 mg/dL (0.2-1.0); Globulin 4.6 g/dL (2.3-3.5); Potassium 3.7 mEq/L (3.5-5.1); Protein, Total 7.7 g/dL (6.4-8.2)
--- NOTE | 2024-02-03 11:30 | RAD REPORT ---
EXAM DESCRIPTION: RAD - Chest Single View - 02/03/2024 11:23 am CLINICAL HISTORY: DYSPNEA Chest pain. COMPARISON: Chest Single View dated 01/23/2024; Chest Single View dated 11/29/2021; Abdomen 1 View (KUB ) dated 11/26/2021; Chest Single View dated 11/26/2021 FINDINGS: Portable technique limits examination quality. The lungs are mildly emphysematous but grossly clear. The heart is upper limit normal in size. No dis placed fractures. IMPRESSION: No acute intrathoracic process suspected.
[2024-02-03 11:53] LABS: Specific Gravity 1.022 (1.005-1.030); Sqamous Epithelial <5 /HPF (None Seen); Urine Bacteria None Seen /HPF (<20); Urine Bilirubin NEGATIVE (Negative); Urine Blood Negative (Negative); Urine Clarity Clear (Clear); Urine Color Light-Yellow (Yellow); Urine Culture Reflex Order NOT NEEDED; Urine Glucose 4+ (Over) (Negative); Urine Ketones NEGATIVE (Negative); Urine Microscopic Reflex YN ORDER UMIC; Urine Mucus Slight /HPF (None Seen); Urine Nitrite NEGATIVE (Negative); Urine Protein NEGATIVE (Negative); Urine RBC <5 /HPF (None Seen); Urine Urobilinogen 1+ (Normal); Urine WBC <5 /HPF (<5); Urine pH 5.5 (5.0-7.0)
--- NOTE | 2024-02-03 11:54 | RAD REPORT ---
EXAM DESCRIPTION: CT - Chest For Pe Angio - 02/03/2024 11:46 am CLINICAL HISTORY: Chest pain. DYSPNEA COMPARISON: No comparisons TECHNIQUE: CT angiogram of the pulmonary arteries was performed with MIP. All CT scans are performed using dose optimization technique as appropriate and may include automated exposure control or mA/KV adjustment according to patient size. FINDINGS: No evidence of pulmonary thromboembolism. No acute aortic finding demonstrated. The lungs are mildly emphysematous but clear. No significant pericardial or pleural fluid. No concerning bony finding. Liver cirrhosis noted. IMPRESSION: No evidence of pulmonary thromboembolism. No acute lung findings. Liver cirrhosis.
--- NOTE | 2024-02-03 11:59 | ER ---
Nurse's Notes [facility] Name: Colby Tilley Jr Age: 58 yrs Sex: Male : 1965 Arrival Date: 02/03/2024 Time: 10:20 Bed 2 Private MD: Diagnosis: Hypotension, unspecified;Lactic acidosis Presentation: 02/02 10:15 Chief complaint: EMS states: WHILE AT DR. HARRIS OFFICE FOR FOLLOWUP OF LEFT TOE db AMPUTATION. RECENT LEFT SIDE STROKE WITH WEAKNESS. PT BECAME HYPOTENSIVE 80/50 HR 140 AND DIZZY WHILE AT OFFICE. Coronavirus screen: Client denies travel out of the [place] in the last 14 days. At this time, the client does not indicate any symptoms associated with coronavirus-19. Ebola Screen: Patient negative for fever greater than or equal to 101.5 degrees Fahrenheit, and additional compatible Ebola Virus Disease symptoms Patient denies exposure to infectious person. Patient denies travel to an Ebola-affected area in the 21 days before illness onset. No symptoms or risks identified at this time. Initial Sepsis Screen: Does the patient meet any 2 criteria? No. Patient's initial sepsis screen is negative. Does the patient have a suspected source of infection? No. Patient's initial sepsis screen is negative. Risk Assessment: Do you want to hurt yourself or someone else? Patient reports no desire to harm self or others. Onset of symptoms was February 03, 2024. Care prior to arrival: Medication(s) given: Normal saline infusion, 800 ML IV initiated. 20 GA, in the right antecubital area, Glucose check: 122. 10:15 Method Of Arrival: EMS: [facility] db 10:15 Acuity: ZENAIDA 2 db Triage Assessment: 10:27 General: Appears in no apparent distress. comfortable, Behavior is calm, cooperative. db Pain: Denies pain. Neuro: Level of Consciousness is awake, alert, obeys commands, Oriented to person, place, time, situation. Respiratory: Airway is patent Respiratory effort is even, unlabored, Respiratory pattern is regular, symmetrical. Historical: - Allergies: 10:27 Anesthesia; db 10:27 Aspirin; db 10:27 Lyrica; db 10:27 PENICILLINS; db 10:27 PROPOFOL (sensitive); db - PMHx: 10:27 cirrhosis of liver; Hypertension; Left foot wound; Diabetes - NIDDM; leg swelling db (Unknown); neuropathy (Unknown); PVD; - PSHx: 10:27 Gastric Bypass; db - Immunization history:: Adult Immunizations unknown, Client reports receiving the 2nd dose of the Covid vaccine. - Infectious Disease History:: Denies. - Social history:: Smoking status: Patient denies any tobacco usage or history of. - Family history:: not pertinent. - Hospitalizations: : No recent hospitalization is reported. Screenin:25 [facility] ED Fall Risk Assessment (Adult) History of falling in the last 3 months, rs5 including since admission No falls in past 3 months (0 pts) Confusion or Disorientation No (0 pts) Intoxicated or Sedated No (0 pts) Impaired Gait Yes (1 pt) Mobility Assist Device Used Yes (1 pt) Altered Elimination No (0 pt) Score/Fall Risk Level 0 - 2 = Low Risk Oriented to surroundings, Maintained a safe environment. Abuse screen: Denies threats or abuse. Nutritional screening: No deficits noted. Tuberculosis screening: No symptoms or risk factors identified. Assessment: 10:25 General: Appears in no apparent distress. comfortable, Behavior is calm, cooperative. rs5 Pain: Denies pain. Neuro: Level of Consciousness is awake, alert, obeys commands, Oriented to person, place, time, situation, Reports dizziness. Cardiovascular: Patient's skin is warm and dry. Rhythm is regular. Respiratory: Airway is patent Respiratory effort is even, unlabored, Respiratory pattern is regular, symmetrical. GI: Abdomen is round non-distended, Abd is soft and non tender X 4 quads. : No signs and/or symptoms were reported regarding the genitourinary system. EENT: No signs and/or symptoms were reported regarding the EENT system. Derm: Skin is intact, Skin is pink, warm \T\ dry. Musculoskeletal: Range of motion: intact in all extremities. 11:36 Reassessment: Patient and/or family updated on plan of care and expected duration. Pain rs5 level reassessed. Patient is alert, oriented x 3, equal unlabored respirations, skin warm/dry/pink. Neuro: Denies dizziness. 12:27 Reassessment: No changes from previously documented assessment. rs5 12:50 Reassessment: PT AMBULATORY TO RESTROOM WITH WALKER. DENIES DIZZINESS. REFUSED URINAL db STATES WANTS TO WALK TO RESTROOM. 13:00 Reassessment: Patient appears in no apparent distress at this time. Patient and/or db family updated on plan of care and expected duration. Pain level reassessed. Patient is alert, oriented x 3, equal unlabored respirations, skin warm/dry/pink. FAMILY IS AT BEDSIDE. 13:07 Reassessment: NOTIFIED [facility] 2ND FLOOR PT REPORT FAXED. db 13:44 Reassessment: Patient appears in no apparent distress at this time. Patient and/or db family updated on plan of care and expected duration. Pain level reassessed. Patient is alert, oriented x 3, equal unlabored respirations, skin warm/dry/pink. Vital Signs: 10:15 BP 97 / 55; Pulse 72; Resp 18; Temp 98.3; Pulse Ox 96% on R/A; Weight 176.9 kg; Height db 6 ft. 8 in. ; 10:30 BP 99 / 55; Pulse 74; Resp 18; Pulse Ox 99% on R/A; rs5 11:02 BP 94 / 54; Pulse 77; Resp 18; Pulse Ox 99% on R/A; rs5 11:15 BP 123 / 67; Pulse 71; Resp 18; Pulse Ox 98% on R/A; rs5 12:30 BP 110 / 65; Pulse 76; Resp 18; Pulse Ox 99% on R/A; rs5 12:55 BP 115 / 70; Pulse 68; Resp 18; Pulse Ox 98% on R/A; db 13:30 BP 107 / 64; Pulse 68; Resp 14; Pulse Ox 98% on R/A; db 10:15 Body Mass Index 42.84 (176.90 kg, 203.2 cm) db ED Course: 10:22 Patient arrived in ED. db 10:24 Simeon Lanza MD is Attending Physician. rn 10:25 Patient has correct armband on for positive identification. Placed in gown. Bed in low rs5 position. Call light in reach. Side rails up X2. 10:25 No provider procedures requiring assistance completed. rs5 10:27 Triage completed. db 10:27 Arm band placed on Patient placed in an exam room. db 10:28 Vania Calvillo RN is Primary Nurse. db 10:30 Maintain EMS IV. Dressing intact. Good blood return noted. Site clean \T\ dry. Gauge \T\ db site: 20 G RAC. 10:47 Initial lab(s) drawn, by me, sent to lab. First set of blood cultures drawn by me, EKG jg11 done, by ED staff. Inserted saline lock: 22 gauge in left antecubital area, using aseptic technique. Blood collected. Maintain EMS IV. Dressing intact. Good blood return noted. Site clean \T\ dry. 10:51 Warm blanket given. Client placed on continuous cardiac and pulse oximetry monitoring. jg11 NIBP monitoring applied. sales agent on. 11:02 Second set of blood cultures drawn by me. jg11 11:25 Chest Single View XRAY In Process Unspecified. EDMS 11:43 Urinalysis w/ reflexes Sent. jg11 11:43 Urine collected: clean catch specimen, clear. jg11 11:47 CT Chest For PE Angio In Process Unspecified. EDMS 11:58 Johnnie Adam MD is Hospitalizing Provider. rn 13:44 Provided Education on: ADMISSION. db 13:44 Patient admitted, IV remains in place. db Administered Medications: 10:45 Drug: NS 0.9% IV 500 ml IV at bolus once Route: IV; Rate: bolus; Site: right forearm; rs5 11:01 Follow up: Response: No adverse reaction rs5 11:18 Follow up: IV Status: Completed infusion; IV Intake: 500ml rs5 Medication: 12:27 VIS not applicable for this client. rs5 Intake: 11:18 IV: 500ml; Total: 500ml. rs5 Outcome: 11:58 Decision to Hospitalize by Provider. rn 13:44 Admitted to ER Hold. Please see [facility] for further documentation. db 13:44 Admitted to Med/surg accompanied by tech, via stretcher, on monitor, with chart, 13:44 Condition: stable 13:44 Discharge instructions given to 13:45 Patient left the ED. db Signatures: Dispatcher [employer] EDMS Simeon Lanza MD MD rn Benton, Danielle, RN RN db Sotelo, Ricky, RN RN Nikolai Carbone [email or web address]
--- NOTE | 2024-02-03 11:59 | EDPHYS ---
Physician Documentation [facility] Name: Colby Tilley Jr Age: 58 yrs Sex: Male : 1965 Arrival Date: 02/03/2024 Time: 10:20 Bed 2 Private MD: ED Physician Simeon Lanza HPI: 02/02 10:29 This 58 yrs old Male presents to ER via EMS with complaints of Dizziness, low bp. rn 10:29 The patient presents with dizziness, feeling faint. Onset: The symptoms/episode rn began/occurred just prior to arrival. Modifying factors: The symptoms are alleviated by nothing, the symptoms are aggravated by nothing. Associated signs and symptoms: Pertinent positives: diaphoresis, shortness of breath, Pertinent negatives: abdominal pain, blurred vision, chest pain, focal weakness, headache, seizure, syncope, vomiting. Severity of symptoms: At their worst the symptoms were moderate in the emergency department the symptoms have improved. The patient has not experienced similar symptoms in the past. Patient was at the surgeon's office today for follow-up from amputation, removing stitches, wound was well-healed and no evidence of infection so sutures removed. While sutures were being removed patient reported diaphoresis and generalized weakness with lightheadedness and shortness of breath. Patient was noted to be hypotensive in the 70s. Given a little bit of fluid and blood pressure initially came up over 100, has dropped back down to the 90s systolic. Patient denies any fever. Patient states feels a little bit better. Patient recently admitted for stroke and discharged within the past week. Patient reports when he got home not really eating due to lack of appetite or drinking water.. Historical: - Allergies: 10:27 Anesthesia; db 10:27 Aspirin; db 10:27 Lyrica; db 10:27 PENICILLINS; db 10:27 PROPOFOL (sensitive); db - PMHx: 10:27 cirrhosis of liver; Hypertension; Left foot wound; Diabetes - NIDDM; leg swelling db (Unknown); neuropathy (Unknown); PVD; - PSHx: 10:27 Gastric Bypass; db - Immunization history:: Adult Immunizations unknown, Client reports receiving the 2nd dose of the Covid vaccine. - Infectious Disease History:: Denies. - Social history:: Smoking status: Patient denies any tobacco usage or history of. - Family history:: not pertinent. - Hospitalizations: : No recent hospitalization is reported. ROS: 10:29 Constitutional: Negative for fever, chills, and weight loss, Neck: Negative for injury, rn pain, and swelling, Cardiovascular: Negative for chest pain, palpitations, and edema, Respiratory: Positive for shortness of breath during episode, which has improved Abdomen/GI: Negative for abdominal pain, nausea, vomiting, diarrhea, and constipation, Back: Negative for injury and pain, : Negative for injury, discharge, and swelling, positive for mild intermittent hematuria MS/Extremity: Negative for injury and deformity, Skin: Negative for injury, rash, and discoloration, Neuro: Negative for headache, numbness, tingling, and seizure, Exam: 10:29 Constitutional: This is a well developed, well nourished patient who is awake, alert, rn and in no acute distress. Head/Face: Normocephalic, atraumatic. ENT: Dry mucous membranes Cardiovascular: Regular rate and rhythm. No pulse deficits. Respiratory: No increased work of breathing, no retractions or nasal flaring. Abdomen/GI: Soft, non-tender MS/ Extremity: Pulses equal, no cyanosis. Equal circumference Neuro: Awake and alert, GCS 15 Vital Signs: 10:15 BP 97 / 55; Pulse 72; Resp 18; Temp 98.3; Pulse Ox 96% on R/A; Weight 176.9 kg; Height db 6 ft. 8 in. ; 10:30 BP 99 / 55; Pulse 74; Resp 18; Pulse Ox 99% on R/A; rs5 11:02 BP 94 / 54; Pulse 77; Resp 18; Pulse Ox 99% on R/A; rs5 11:15 BP 123 / 67; Pulse 71; Resp 18; Pulse Ox 98% on R/A; rs5 12:30 BP 110 / 65; Pulse 76; Resp 18; Pulse Ox 99% on R/A; rs5 12:55 BP 115 / 70; Pulse 68; Resp 18; Pulse Ox 98% on R/A; db 13:30 BP 107 / 64; Pulse 68; Resp 14; Pulse Ox 98% on R/A; db 10:15 Body Mass Index 42.84 (176.90 kg, 203.2 cm) db MDM: 10:24 Patient medically screened. rn 11:57 ED course: No evidence of infection at this time. Patient with elevated lactic acid. rn Blood pressure is improving with fluids. Unclear reason for his hypotension and diaphoresis at clinic. Will obs in hospital for further observation and testing.. 11:58 Data reviewed: vital signs, nurses notes, lab test result(s), EKG, radiologic studies, rn and as a result, I will admit patient. Consideration of Admission/Observation Patient was admitted/placed on observation. Escalation of care including admission/observation considered. Counseling: I had a detailed discussion with the patient and/or guardian regarding the historical points, exam findings, and any diagnostic results supporting the discharge/admit diagnosis, lab results, radiology results, the need for further work-up and treatment in the hospital. Response to treatment: the patient's symptoms have mildly improved after treatment, and as a result, I will admit patient. 02/02 10:25 Order name: Blood Culture Adult (2) rn 02/02 10:25 Order name: CBC with Diff; Complete Time: 11:36 02/02 10:25 Order name: CMP; Complete Time: 11:36 rn 02/02 10:25 Order name: Lactate w/ 2H reflex if indic.; Complete Time: 11:36 rn 02/02 10:25 Order name: Protime (+inr); Complete Time: 11:36 rn 02/02 10:25 Order name: Ptt, Activated; Complete Time: 11:36 rn 02/02 10:25 Order name: Urinalysis w/ reflexes; Complete Time: 11:56 rn 02/02 10:25 Order name: Chest Single View XRAY; Complete Time: 11:36 rn 02/02 10:25 Order name: CT Chest For PE Angio; Complete Time: 11:56 rn 02/02 10:25 Order name: Accucheck; Complete Time: 11:59 rn 02/02 10:25 Order name: Cardiac monitoring; Complete Time: 10:35 rn 02/02 10:25 Order name: EKG - Nurse/Tech; Complete Time: 10:35 rn 02/02 10:25 Order name: IV Saline Lock - Large Bore; Complete Time: 10:28 rn 02/02 10:25 Order name: Labs collected and sent; Complete Time: 11:27 rn 02/02 10:25 Order name: O2 Per Protocol; Complete Time: 10:35 rn 02/02 10:25 Order name: O2 Sat Monitoring; Complete Time: 10:35 rn 02/02 10:25 Order name: Vital Signs; Complete Time: 10:35 rn Administered Medications: 10:45 Drug: NS 0.9% IV 500 ml IV at bolus once Route: IV; Rate: bolus; Site: right forearm; rs5 11:01 Follow up: Response: No adverse reaction rs5 11:18 Follow up: IV Status: Completed infusion; IV Intake: 500ml rs5 Disposition Summary: 02/03/24 11:58 Hospitalization Ordered Notes: Hospitalization Status: Observation rn Provider: Johnnie Adam rn Location: Telemetry/MedSurg (observation) rn Condition: Stable rn Problem: new rn Symptoms: have improved rn Bed/Room Type: Standard rn Room Assignment: 210(02/03/24 12:59) bd Diagnosis - Hypotension, unspecified rn - Lactic acidosis rn Forms: - Medication Reconciliation Form rn - SBAR form rn - Leadership Thank You Letter rn Signatures: Dispatcher [employer] EDFanny Katz Roman, MD MD rn Benton, Danielle, RN RN db Sotelo, Ricky, RN RN rs5 Corrections: (The following items were deleted from the chart) 10:25 10:25 BLOOD CULTURE*+BA.LAB.BRZ ordered. EDMS EDMS 10:25 10:25 CBC+H.LAB.BRZ ordered. EDMS EDMS 10:25 10:25 COMPREHENSIVE METABOLIC PANEL+C.LAB.BRZ ordered. EDMS EDMS 10:25 10:25 LACTATE+C.LAB.BRZ ordered. EDMS EDMS 10:25 10:25 PROTIME (+INR)+COAG.LAB.BRZ ordered. EDMS EDMS 10:25 10:25 PTT, ACTIVATED+COAG.LAB.BRZ ordered. EDMS EDMS 10:25 10:25 Urinalysis+U.LAB.BRZ ordered. EDMS EDMS 10:25 10:25 Chest Single View+RAD.RAD.BRZ ordered. EDMS EDMS 12:59 11:58 rn bd
--- NOTE | 2024-02-03 13:59 | EKG ---
Test Date: 2024-02-03 Test Time: 10:31:12 Senior Electrical Designer: GRACE MEASUREMENT RESULTS: Intervals: Rate: 71 FL: 168 QRSD: 90 QT: 398 QTc: 432 Clint: P: 28 FL: 168 QRS: 27 T: 51 INTERPRETIVE STATEMENTS: Normal sinus rhythm Normal ECG Compared to ECG 01/25/2024 11:56:36 No significant changes Electronically Signed On 02-03-24 13:57:48 CDT by Saqib Riggs
[2024-02-03 14:24] VITALS: BMI 41.6
[2024-02-03] MEDS: NA CHLORIDE 0.9% 1,000 ML IV SCH (15:01)
[2024-02-03] MEDS: ENOXAPARIN 40 MG/0.4 ML SQ SCH (15:01)
--- NOTE | 2024-02-03 16:30 | P.HP ---
Certification for Inpatient Patient admitted to: Observation With expected LOS: <2 Midnights Patient will require the following post-hospital care: None Practitioner: I am a practitioner with admitting privileges, knowledge of patient current condition, hospital course, and medical plan of care. Services: Services provided to patient in accordance with Admission requirements found in Title 42 Section 412.3 of the Code of Federal Regulations Patient History Date of Service: 02/03/24 Reason for admission: Near syncope History of Present Illness: 58-year-old male with history of obesity, diabetes mellitus type [id number], hypertension, PVD, neuropathy, CVA resulting in left- sided weakness, left foot wound presented to the emergency department with chief complaint of hypotension, tachycardia. Patient was discharged from our facility on 01/29/2024 after having an amputation of his second left toe, he was following up with his general surgeon to have the sutures removed and while he was having his sutures removed he began to feel lightheaded, his vital signs were checked and he was found to be hypotensive and tachycardic with a heart rate in the 140s and a blood pressure of 80/50. Patient reports this episode lasted for 5 to 10 minutes and has since improved. He was given IV fluids and his heart rate and blood pressure improved. Given his recent infection, low blood pressure and tachycardia blood cultures and lactate were obtained, initial lactate was 2.2 it is now downtrending white blood cell count was within normal limits patient has chronic thrombocytopenia and platelets are 107. ED provider wishes to admit under observation for near syncope, hypotension/tachycardiaresolved. Allergies ciprofloxacin Allergy (Unknown, Verified 10/09/18 11:) Hives/Rash Penicillins Adverse Reaction (Mild, Verified 10/09/18:) Shortness of breath aspirin Adverse Reaction (Unknown, Verified 10/09/18:) Shortness of breath propofol Adverse Reaction (Verified 10/09/18:) over sedation symptoms,hard to wake up flu vaccine Adverse Reaction (Uncoded 10/09/18) extreme sore throat, chronic cough Home Medications: Glimepiride [Amaryl*] 4 mg PO BID 09/26/20 Metformin HCl 1,000 mg PO BID 09/26/20 PARoxetine HCL [Paroxetine HCl] 40 mg PO DAILY 09/26/20 Potassium Chloride 10 meq PO BID 09/26/20 lisinopriL [Lisinopril] 20 mg PO BID 11/27/21 Atorvastatin Calcium 20 mg PO DAILY 01/23/24 Furosemide [Lasix] 40 mg PO DAILY 01/23/24 Linagliptin [Tradjenta] 5 mg PO DAILY 01/23/24 Pantoprazole [Protonix Tab*] 40 mg PO DAILY 01/23/24 Propranolol [Inderal*] 10 mg PO BID 01/23/24 Smz./Tmp. [Bactrim Ds 800 MG/160 MG] 1 each PO DAILY 7 Days #14 tab 01/28/24 - Past Medical/Surgical History Has patient received pneumonia vaccine in the past: Yes Diabetic: Yes -: Hypertension -: Peripheral vascular disease -: Diabetes mellitus type 2 -: Morbid obesity -: Hyperlipidemia -: Depression -: Obstructive sleep apnea -: Cirrhosis - fatty liver -: Diabetic neuropathy -: Venous insufficiency -: CVA -: Gastric bypass -: Bilateral knee surgery -: "venous reflux" had small veins closed "years ago" -: left great toe shaved -: Left second toe amputation Psychosocial/ Personal History: The patient lives with his brother. He has no children. He is disabled. - Family History Father -: Hypertension, Stroke - Social History Alcohol use: No CD- Drugs: No Caffeine use: No Place of Residence: Home Review of Systems 10-point ROS is otherwise unremarkable Cardiovascular: Light Headedness Physical Examination - Vital Signs Temperature: 97.2 F Blood Pressure: 145/77 Pulse: 69 Respirations: 18 Pulse Ox (%): 92 - Physical Exam General: Alert, In no apparent distress, Oriented x3, Obese HEENT: Atraumatic, PERRLA Neck: Supple, 2+ carotid pulse no bruit Respiratory: Clear to auscultation bilaterally, Normal air movement Cardiovascular: Regular rate/rhythm, Normal S1 S2 Gastrointestinal: Normal bowel sounds, No tenderness Musculoskeletal: No tenderness Integumentary: Other (Dressing present to left foot) Neurological: Normal gait, Normal speech, Normal strength at 5/5 x4 extr, Normal tone - Studies Laboratory Data (last 24 hrs) 02/03/24 02/03/24 02/03/24 10:47 10:47 10:47 WBC 5.40 Hgb 12.2 L Hct 37.8 L Plt Count 107 L PT 13.1 H INR 1.20 APTT 32.2 Sodium 135 L Potassium 3.7 BUN 16 Creatinine 0.94 Glucose 158 H Total Bilirubin 1.9 H AST 48 H ALT 49 Alkaline Phosphatase 154 H Assessment and Plan - Plan Assessment: Near syncope Hypotension, tachycardia Diabetes mellitus type [id number] History of CVA with left-sided weakness Cirrhosis secondary to fatty liver Chronic thrombocytopenia PVD Hyperlipidemia JUAN Plan: Near syncope Hypotension, tachycardia Symptoms improved with IV fluids CTA of the chest negative for pulmonary embolism Will trend troponins, monitor on telemetry Occurred during suture removal, possibly vasovagal Diabetes mellitus type [id number] ACHS Accu-Chek, sliding scale insulin Continue medications History of CVA with left-sided weakness Patient reports aspirin allergy-states "freely bleeding" Appears to been treated with Plavix and patient during CVA Will give dose of Plavix tomorrow and if well-tolerated prescription for Plavix outpatient as well Cirrhosis secondary to fatty liver Chronic thrombocytopenia Monitor platelet count daily PVD Hyperlipidemia Continue home medications JUAN Was told he needs CPAP but needs to have outpatient sleep study first Recommend outpatient sleep study DVT PPX: Lovenox Code status: Full Discharge Plan: Home Plan to discharge in: 24 Hours - Advance Directives Does patient have a Living Will: No Does patient have a Durable POA for Healthcare: No - Code Status/Comfort Care Code Status Assessed: Yes (Full code) Critical Care: No Time Spent Managing Pts Care (In Minutes): 70
[2024-02-03] MEDS: INSULIN REGULAR (HUMAN) 100 UNIT/ML SQ SCH (18:21)
[2024-02-03] MEDS: METFORMIN HCL 500 MG TAB PO SCH (18:22)
[2024-02-03] MEDS: GLIMEPIRIDE 2 MG TABLET PO SCH (18:22)
[2024-02-03] MEDS: SMZ./TMP. 800/160 MG TABLET PO SCH (20:32)
[2024-02-03] MEDS: PROPRANOLOL HCL 10 MG TAB PO SCH (20:32)
[2024-02-03] MEDS ORDERED: HOME MED 1 EA UNK (Metformin Hcl [Metformin Hcl] 1,000 MG Tablet) PO SCH (21:00)
[2024-02-03 21:06] VITALS: O2SAT 97
[2024-02-04 04:20] LABS: Absolute Eosinophils 0.1 K/uL (0-0.5); Absolute Monocytes 0.6 K/uL (0.1-1.3); Absolute Neutrophil 2.8 K/uL (1.8-8.0); Basophils % 0.5 % (0-1.3); Eosinophils % 2.9 % (0-4.4); Hematocrit 34.9 % (39.6-49.0); Hemoglobin 11.5 g/dL (13.6-17.9); Lymphocytes % 22.8 % (15.3-44.8); MCV 90.9 fL (80-100); MPV 9.5 fL (7.6-11.3); Monocytes % 13.2 % (3.3-12.3); Neutrophils % 60.6 % (41.7-73.7); Nucleated Red Blood Cells % 0.2 % (0-0); Platelets 98 thou/uL (152-406); RBC Red Blood Cell Count 3.84 M/uL (4.33-5.43); Red Cell Distribution Width 15.4 % (12.1-15.2)
[2024-02-04 04:36] LABS: Albumin 2.7 g/dL (3.4-5.0); Albumin/Globulin Ratio 0.6 (1.1-1.8); Anion Gap 9.6 mEq/L (5.0-15.0); Bilirubin Total 1.7 mg/dL (0.2-1.0); Globulin 4.3 g/dL (2.3-3.5); Potassium 3.6 mEq/L (3.5-5.1); Thyroid Stimulating Hormone 0.585 uIU/mL (0.358-3.740)
[2024-02-04 05:12] LABS: Blood Morphology Comment NOT SEEN (NOT SEEN); Platelet Estimate DECR; White Blood Cell Scan OK (OK)
[2024-02-04] MEDS: LINAGLIPTIN 5 MG PO SCH (09:00)
[2024-02-04] MEDS ORDERED: HOME MED 1 EA UNK (Paroxetine Hcl [Paroxetine Hcl] 20 MG Tablet) PO SCH (09:00)
[2024-02-04] MEDS: PARoxetine HCL 10 MG TAB PO SCH (09:14)
[2024-02-04] MEDS: PANTOPRAZOLE 40MG TABLET PO SCH (09:14)
[2024-02-04] MEDS: CLOPIDOGREL 75 MG TABLET PO SCH (09:14)
[2024-02-04] MEDS: ATORVASTATIN 20 MG TAB PO SCH (09:14)
[2024-02-04] MEDS: POTASSIUM CL SA 10 MEQ TAB PO ONE (09:15)
[2024-02-04 12:16] VITALS: BP 128/73; TEMP 97.4
--- NOTE | 2024-02-04 14:03 | P.DS ---
Admission Date: 02/03/24 Discharge Date: 02/04/24 Disposition: ROUTINE DISCHARGE Discharge Condition: GOOD Reason for Admission: Near syncope Brief History of Present Illness: 58-year-old male with history of obesity, diabetes mellitus type [id number], hypertension, PVD, neuropathy, CVA resulting in left- sided weakness, left foot wound presented to the emergency department with chief complaint of hypotension, tachycardia. Patient was discharged from our facility on 01/29/2024 after having an amputation of his second left toe, he was following up with his general surgeon to have the sutures removed and while he was having his sutures removed he began to feel lightheaded, his vital signs were checked and he was found to be hypotensive and tachycardic with a heart rate in the 140s and a blood pressure of 80/50. Darell holland reports this episode lasted for 5 to 10 minutes and has since improved. He was given IV fluids and his heart rate and blood pressure improved. Given his recent infection, low blood pressure and tachycardia blood cultures and lactate were obtained, initial lactate was 2.2 it is now downtrending white blood cell count was within normal limits patient has chronic thrombocytopenia and platelets are 107. ED provider wishes to admit under observation for near syncope, hypotension/tachycardiaresolved. Hospital Course: Assessment: Near syncope Hypotension, tachycardia Diabetes mellitus type [id number] History of CVA with left-sided weakness Cirrhosis secondary to fatty liver Chronic thrombocytopenia PVD Hyperlipidemia JUAN Patient was admitted to the hospital for near syncopal episode, hypotension, tachycardia experienced while at his doctor's office. He was given IV fluids in the emergency department and his blood pressure improved, he remained in sinus rhythm during his hospitalization with heart rates in the 60s to 70s. He had no arrhythmias noted on telemetry and his cardiac enzymes remained within normal limits. His general surgeon evaluated the wound to his foot just prior to his presentation to the hospital, blood cultures were also obtained to rule out sepsis, there is been no growth last 24 hours. White blood cell count also remains within normal limits and patient has been afebrile. At this time patient stable for discharge and follow-up outpatient with cardiology for possible event monitor. Continue taking your home medications including the Bactrim as prescribed New prescription for Plavix will be sent to your pharmacy to further reduce the risk of stroke near future. Continue taking this medication until otherwise instructed by your primary care doctor or neurologist. Vital Signs/Physical Exam: Temp Pulse Resp BP Pulse Ox 97.4 F 60 14 128/73 95 02/04/24 12:00 02/04/24 12:00 02/04/24 12:00 02/04/24 12:00 02/04/24 12:00 General: Alert, In no apparent distress, Oriented x3 HEENT: Atraumatic, PERRLA Neck: Supple, JVD not distended Respiratory: Clear to auscultation bilaterally, Normal air movement Cardiovascular: Regular rate/rhythm, Normal S1 S2 Gastrointestinal: Normal bowel sounds, No tenderness Musculoskeletal: No tenderness Integumentary: Other (wound present to left 2dn toe with previous amputation, dressing intact) Neurological: Normal speech, Normal tone, Normal affect Laboratory Data at Discharge: WBC 4.60 thou/uL (4.3-10.9) 02/04/24 02:45 Hgb 11.5 g/dL (13.6-17.9) L 02/04/24 02:45 Hct 34.9 % (39.6-49.0) L 02/04/24 02:45 Plt Count 98 thou/uL (152-406) L 02/04/24 02:45 PT 13.1 SECONDS (9.5-12.5) H 02/03/24 10:47 INR 1.20 02/03/24 10:47 APTT 32.2 SECONDS (24.3-36.9) 02/03/24 10:47 Sodium 137 mEq/L (136-145) 02/04/24 02:45 Potassium 3.6 mEq/L (3.5-5.1) 02/04/24 02:45 BUN 17 mg/dL (7-18) 02/04/24 02:45 Creatinine 0.70 mg/dL (0.70-1.30) 02/04/24 02:45 Glucose 91 mg/dL (74-106) 02/04/24 02:45 Total Bilirubin 1.7 mg/dL (0.2-1.0) H 02/04/24 02:45 AST 42 U/L (15-37) H 02/04/24 02:45 ALT 42 U/L (16-61) 02/04/24 02:45 Alkaline Phosphatase 137 U/L (45-117) H 02/04/24 02:45 Home Medications: Glimepiride [Amaryl*] 4 mg PO BID 09/26/20 Metformin HCl 1,000 mg PO BID 09/26/20 PARoxetine HCL [Paroxetine HCl] 40 mg PO DAILY 09/26/20 Potassium Chloride 10 meq PO BID 09/26/20 lisinopriL [Lisinopril] 20 mg PO BID 11/27/21 Atorvastatin Calcium 20 mg PO DAILY 01/23/24 Furosemide [Lasix] 40 mg PO DAILY 01/23/24 Linagliptin [Tradjenta] 5 mg PO DAILY 01/23/24 Pantoprazole [Protonix Tab*] 40 mg PO DAILY 01/23/24 Propranolol [Inderal*] 10 mg PO BID 01/23/24 Smz./Tmp. [Bactrim Ds 800 MG/160 MG*] 1 each PO DAILY 7 Days #14 tab 01/28/24 hydroCHLOROthiazide [Hydrochlorothiazide*] 12.5 mg PO DAILY 02/03/24 Clopidogrel Bisulfate [Plavix] 75 mg PO DAILY #30 tab 02/04/24 New Medications: Clopidogrel Bisulfate [Plavix] 75 mg PO DAILY #30 tab Physician Discharge Instructions: Patient was admitted to the hospital for near syncopal episode, hypotension, tachycardia experienced while at his doctor's office. He was given IV fluids in the emergency department and his blood pressure improved, he remained in sinus rhythm during his hospitalization with heart rates in the 60s to 70s. He had no arrhythmias noted on telemetry and his cardiac enzymes remained within normal limits. His general surgeon evaluated the wound to his foot just prior to his presentation to the hospital, blood cultures were also obtained to rule out sepsis, there is been no growth last 24 hours. White blood cell count also remains within normal limits and patient has been afebrile. At this time patient stable for discharge and follow-up outpatient with cardiology for possible event monitor. Continue taking your home medications including the Bactrim as prescribed New prescription for Plavix will be sent to your pharmacy to further reduce the risk of stroke near future. Continue taking this medication until otherwise instructed by your primary care doctor or neurologist. Diet: ADA Activity: Ad kevin Followup: Ailin Zheng NP [Primary Care Provider] - 1-2 Weeks Ney Ny MD [ACTIVE - CAN ADMIT] - 1-2 Weeks Saqib Riggs MD [ACTIVE - CAN ADMIT] - 1-2 Weeks Time spent managing pt's care (in minutes): 35
== END 2024-02-04 15:35 | disposition home or self-care (01) ==
LOC: ER 10:20 → ERHOLD 12:40 → 2ND 13:04
PROVIDERS: ADMIT Hospitalist; ATTEND Hospitalist
DX: R55 Syncope and collapse (principal); I95.9 Hypotension, unspecified; R00.0 Tachycardia, unspecified; E11.9 Type 2 diabetes mellitus without complications; I10 Essential (primary) hypertension; E66.9 Obesity, unspecified; G62.9 Polyneuropathy, unspecified; I67.9 Cerebrovascular disease, unspecified; G81.90 Hemiplegia, unspecified affecting unspecified side; K74.60 Unspecified cirrhosis of liver; D69.6 Thrombocytopenia, unspecified; E78.5 Hyperlipidemia, unspecified; G47.33 Obstructive sleep apnea (adult) (pediatric); I73.9 Peripheral vascular disease, unspecified; Z88.6 Allergy status to analgesic agent; Z68.41 Body mass index [BMI] 40.0-44.9, adult; Z88.0 Allergy status to penicillin; Z88.1 Allergy status to other antibiotic agents; Z89.422 Acquired absence of other left toe(s); Z98.890 Other specified postprocedural states; E87.20 Acidosis, unspecified
CPT/HCPCS: 93005; 87040 ×2; 85025 ×2; 81001; 36415; 85610; 82947 ×4; 83605 ×2; 85730; 84443; 84484 ×2; 84439; 80053 ×2; 71275; 71045; 96360; 99285; Q9967; J1650; J1815; J7040; J7030; G0378 ×3

== ENCOUNTER 2024-04-06 23:54 | Emergency (ER) | payer OTHER ==
[2024-04-07 01:20] LABS: PTT, Activated Partial Thromb 32.6 SECONDS (24.3-36.9); Protime INR 1.19
[2024-04-07 01:21] LABS: Absolute Eosinophils 0.1 K/uL (0-0.5); Absolute Monocytes 0.5 K/uL (0.1-1.3); Basophils % 0.4 % (0-1.3); Eosinophils % 1.3 % (0-4.4); Hematocrit 36.4 % (39.6-49.0); Hemoglobin 11.8 g/dL (13.6-17.9); Lymphocytes % 21.5 % (15.3-44.8); MCH 28.6 pg (27.0-35.0); MCHC 32.3 g/dL (32.0-36.0); MCV 88.8 fL (80-100); MPV 9.3 fL (7.6-11.3); Monocytes % 11.1 % (3.3-12.3); Neutrophils % 65.7 % (41.7-73.7); Platelets 90 thou/uL (152-406); Red Cell Distribution Width 17.2 % (12.1-15.2)
[2024-04-07 01:34] LABS: Albumin 3.2 g/dL (3.4-5.0); Albumin/Globulin Ratio 0.7 (1.1-1.8); Anion Gap 8.2 mEq/L (5.0-15.0); Bilirubin Direct 0.6 mg/dL (0-0.2); Bilirubin Indirect, Calculated 1.4 mg/dL (0.2-0.8); Globulin 4.5 g/dL (2.3-3.5); Magnesium 1.9 mg/dL (1.6-2.4); Potassium 3.2 mEq/L (3.5-5.1); Protein, Total 7.7 g/dL (6.4-8.2); Troponin High Sensitivity 7.5 pg/mL (<58.9)
--- NOTE | 2024-04-07 02:39 | ER ---
Nurse's Notes [facility] Name: Colby Tilley Jr Age: 58 yrs Sex: Male : 1965 Arrival Date: 04/06/2024 Time: 23:54 Bed 6 Private MD: Diagnosis: TIA, left weakness resolved Presentation: 04/07 00:13 Chief complaint: Patient states: HAD A STROKE A MONTH AGO AND I HAVE BEEN REAL DIZZY vc1 AND NOW I AM HAVING NUMBNESS AND TINGLING TO THE LEFT SIDE AND HAVING TROUBLE LIFTING MY LEFT LEG. 00:17 Coronavirus screen: At this time, the client does not indicate any symptoms associated vc1 with coronavirus-19. Ebola Screen: Patient negative for fever greater than or equal to 101.5 degrees Fahrenheit, and additional compatible Ebola Virus Disease symptoms Patient denies exposure to infectious person. Patient denies travel to an Ebola-affected area in the 21 days before illness onset. No symptoms or risks identified at this time. 00:17 Method Of Arrival: Wheelchair vc1 00:20 Initial Sepsis Screen: Does the patient meet any 2 criteria? No. Patient's initial vc1 sepsis screen is negative. Does the patient have a suspected source of infection? No. Patient's initial sepsis screen is negative. Risk Assessment: Do you want to hurt yourself or someone else? Patient reports no desire to harm self or others. Note WORSE THE LAST FEW DAYS STARTED ABOUT A WEEK AGO. Onset of symptoms is unknown. 00:20 Acuity: ZENAIDA 2 vc1 00:20 No acute neurological deficit is noted. ha1 Triage Assessment: 00:22 General: Appears in no apparent distress. well developed, Behavior is calm, vc1 cooperative, appropriate for age. Pain: Denies pain. EENT: No deficits noted. No signs and/or symptoms were reported regarding the EENT system. 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 Cardiovascular: Heart tones S1 S2 Capillary refill < 3 seconds Patient's skin is warm and dry. Respiratory: Airway is patent Respiratory effort is even, unlabored, Respiratory pattern is regular, symmetrical, Breath sounds are clear bilaterally. Derm: Skin is intact, is healthy with good turgor, Skin is dry, Skin is normal, Skin temperature is warm. Historical: - Allergies: 00:19 Anesthesia; vc1 00:19 Aspirin; vc1 00:19 Lyrica; vc1 00:19 PENICILLINS; vc1 00:19 PROPOFOL (sensitive); vc1 - PMHx: 00:19 cirrhosis of liver; Diabetes - NIDDM; Hypertension; Left foot wound; leg swelling vc1 (Unknown); neuropathy (Unknown); PVD; - PSHx: 00:19 Gastric Bypass; vc1 - Immunization history:: Adult Immunizations unknown. - Infectious Disease History:: Denies. - Social history:: Smoking status: Patient denies any tobacco usage or history of. Screenin:[address] [facility] ED Fall Risk Assessment (Adult) History of falling in the last 3 months, vc1 including since admission No falls in past 3 months (0 pts) Confusion or Disorientation No (0 pts) Intoxicated or Sedated No (0 pts) Impaired Gait Yes (1 pt) Mobility Assist Device Used Yes (1 pt) Altered Elimination No (0 pt) Score/Fall Risk Level 0 - 2 = Low Risk Oriented to surroundings, Maintained a safe environment, Educated pt \\T\\ family on fall prevention, incl call for assistance when getting out of bed. Abuse screen: Denies threats or abuse. Nutritional screening: No deficits noted. Tuberculosis screening: No symptoms or risk factors identified. Assessment: 00:01 General: Appears comfortable, Behavior is calm, cooperative. Pain: Denies pain. Neuro: ha1 Reports weakness in left arm since 6 pm states " I have been having weakness on my left arm since my previous stroke but lately it has been getting weaker". Neuro: Level of Consciousness is awake, alert, obeys commands, Oriented to person, place, time, situation, Moves all extremities. Full function Reports dizziness, weakness in left arm. Cardiovascular: Capillary refill < 3 seconds Patient's skin is warm and dry. Respiratory: Airway is patent Respiratory effort is even, unlabored, Respiratory pattern is regular, symmetrical. GI: No signs and/or symptoms were reported involving the gastrointestinal system. : No signs and/or symptoms were reported regarding the genitourinary system. Derm: Skin is pink, warm \\T\\ dry. Musculoskeletal: Range of motion: intact in all extremities. 00:20 VAN Scoring: Arm Drift: Patients demonstrates NO arm weakness. Patient is VAN Negative. ha1 Visual Disturbance: No visual disturbance noted. [place] Swallow Protocol Oral Mechanism Examination Facial Symmetry: Normal, Motion: Normal, Lip Closure: Normal. TNKase (Tenecteplase) Screening: Not Applicable. 00:21 [place] Swallow Protocol Brief Cognitive Screen What is your name? Normal, Where are you ha1 right now? Normal, What year is it? Normal. 00:35 [place] Swallow Protocol 3 oz Water Swallow Challenge: Pt able to drink all water without ha1 stopping, coughing, choking or throat clearing: Yes Result: PASS MD Notified: Lonny Nunez MD. 01:00 Reassessment: Patient and/or family updated on plan of care and expected duration. Pain ha1 level reassessed. Patient is alert, oriented x 3, equal unlabored respirations, skin warm/dry/pink. 02:05 Reassessment: Patient and/or family updated on plan of care and expected duration. Pain ha1 level reassessed. Patient is alert, oriented x 3, equal unlabored respirations, skin warm/dry/pink. 02:58 Reassessment: Patient and/or family updated on plan of care and expected duration. Pain bm8 level reassessed. Patient is alert, oriented x 3, equal unlabored respirations, skin warm/dry/pink. Vital Signs: 00:17 Height 6 ft. 8 in. ; vc1 00:18 BP 143 / 79; Pulse 79; Resp 19 S; Temp 97.9(T); Pulse Ox 95% on R/A; ha1 00:49 Weight 179.5 kg; vc1 01:44 BP 102 / 52; Pulse 76; Resp 18 S; Pulse Ox 94% on R/A; ha1 02:21 BP 118 / 57; Pulse 76; Resp 20 S; Pulse Ox 95% on R/A; ha1 NIH Stroke Scale Scores: 00:20 NIHSS Score: 0 ha1 ED Course: 04/06 23:56 Patient arrived in ED. rg4 04/07 00:01 Patient has correct armband on for positive identification. Placed in gown. Bed in low ha1 position. Call light in reach. Side rails up X 1. 00:01 Arm band placed on right wrist. bm8 00:04 Lonny Nunez MD is Attending Physician. sp3 00:10 Inserted saline lock: 20 gauge in left antecubital area, using aseptic technique. Blood ha1 collected. 00:21 Triage completed. vc1 00:31 CT Neck Angio In Process Unspecified. EDMS 00:31 CT Stroke Brain w/o Contrast In Process Unspecified. EDMS 00:31 Head angio In Process Unspecified. EDMS 00:43 Stroke CXR 1 View In Process Unspecified. EDMS 02:38 Kendall Putnam MD is Referral Physician. sp3 02:57 No provider procedures requiring assistance completed. IV discontinued, intact, bm8 bleeding controlled, No redness/swelling at site. Pressure dressing applied. 02:58 Provided Education on: follow ups. bm8 Administered Medications: No medications were administered Medication: 00:23 VIS not applicable for this client. vc1 Point of Care Testing: Blood Glucose: 00:40 Blood Glucose: 185 mg/dL; ha1 Ranges: Outcome: 02:39 Discharge ordered by . sp3 02:57 Discharged to home via wheelchair, bm8 02:57 Condition: stable 02:57 Discharge instructions given to patient, Instructed on discharge instructions, follow up and referral plans. Demonstrated understanding of instructions, follow-up care, 02:59 Patient left the ED. bm8 NIH Stroke Scale - NIH Stroke Score Date: 04/07/2024 Time: 00:20 Total Score = 0 10. Dysarthria (speech clarity - read or repeat words) - 0(Normal) 11. Extinction and Inattention (visual/tactile/auditory/spatial/personal) - 0(No abnormality) 1a. Level of Consciousness (LOC) - 0(Alert) 1b. Level of Consciousness (LOC) (Month \\T\\ Age) - 0(Both) 1c. LOC Commands (Open \\T\\ Closes Eyes/Base Engineer) - 0(Both) 2. Best Gaze (Lateral Gaze Paresis) - 0(Normal) 3. Visual Field Loss - 0(No visual loss) 4. Facial Palsy - 0(Normal) 5a. Left Arm: Motor (10-second hold) - 0(No drift) 5b. Right Arm: Motor (10-second hold) - 0(No drift) 6a. Left Leg: Motor (5-second hold - always test supine) - 0(No drift) 6b. Right Leg: Motor (5-second hold - always test supine) - 0(No drift) 7. Limb Ataxia (finger/nose \\T\\ heel/cunningham - test with eyes open) - 0(Absent) 8. Sensory Loss (pinprick arms/legs/face) - 0(Normal) 9. Best Language: Aphasia (description/naming/reading) - 0(No aphasia) Initials: ha1 Signatures: Dispatcher [employer] EDAnastasiya Olsen rg4 Lonny Nunez MD MD sp3 Latanya Dowd RN RN vc1 Dean Johnson RN RN ha1 Steve Barnes RN RN bm8 Corrections: (The following items were deleted from the chart) 00:19 00:13 Chief complaint: Patient states: HAD A STROKE A MONTH AGO AND I HAVE BEEN vc1 REAL DIZZY AND vc1 01:06 00:01 Neuro: Reports weakness in left arm since 6 pm states " I have been ha1 having weakness on my left arm since my previous stroke" ha1 02:58 00:01 Neuro: Level of Consciousness is awake, alert, obeys commands, Oriented bm8 to person, place, time, situation, Moves all extremities. Full function Reports weakness in left arm ha1
--- NOTE | 2024-04-07 02:40 | EDPHYS ---
Physician Documentation [facility] Name: Colby Tilley Jr Age: 58 yrs Sex: Male : 1965 Arrival Date: 04/06/2024 Time: 23:54 Bed 6 Private MD: ED Physician Lonny Nunez HPI: 04/07 00:19 This 58 yrs old Male presents to ER via Wheelchair with complaints of Dizziness, sp3 Numbness Of Face, Numbness of Legs. 00:30 58-year-old male with history of cirrhosis, diabetes, hypertension, 2 prior CVAs sp3 currently on Plavix among others, now presents to the ED with chief complaint of left-sided weakness and numbness similar to his prior CVA approximately 3 months ago. He denies any other symptoms including headache, trauma, neck pain or stiffness, changes in vision, changes in speech, dysarthria, memory loss, chest pain, shortness of breath, abdominal pain, vomiting, diarrhea, syncope, near syncope, rash, prolonged immobilization, and travel history, known sick contacts, or any other signs or symptoms on ROS at this time.. Historical: - Allergies: 00:19 Anesthesia; vc1 00:19 Aspirin; vc1 00:19 Lyrica; vc1 00:19 PENICILLINS; vc1 00:19 PROPOFOL (sensitive); vc1 - PMHx: 00:19 cirrhosis of liver; Diabetes - NIDDM; Hypertension; Left foot wound; leg swelling vc1 (Unknown); neuropathy (Unknown); PVD; - PSHx: 00:19 Gastric Bypass; vc1 - Immunization history:: Adult Immunizations unknown. - Infectious Disease History:: Denies. - Social history:: Smoking status: Patient denies any tobacco usage or history of. ROS: 00:32 Constitutional: Negative for fever, chills, and weight loss, Eyes: Negative for injury, sp3 pain, redness, and discharge, ENT: Negative for injury, pain, and discharge, Neck: Negative for injury, pain, and swelling, Cardiovascular: Negative for chest pain, palpitations, and edema, Respiratory: Negative for shortness of breath, cough, wheezing, and pleuritic chest pain, Abdomen/GI: Negative for abdominal pain, nausea, vomiting, diarrhea, and constipation, Back: Negative for injury and pain, MS/Extremity: Negative for injury and deformity, Skin: Negative for injury, rash, and discoloration, Psych: Negative for depression, anxiety, suicide ideation, homicidal ideation, and hallucinations, Allergy/Immunology: Negative for hives, rash, and allergies, Endocrine: Negative for neck swelling, polydipsia, polyuria, polyphagia, and marked weight changes, Hematologic/Lymphatic: Negative for swollen nodes, abnormal bleeding, and unusual bruising, 00:32 All other systems are negative, Exam: 00:32 Constitutional: This is a well developed, well nourished patient who is awake, alert, sp3 and in no acute distress. Head/Face: Normocephalic, atraumatic. Eyes: Pupils equal round and reactive to light, extra-ocular motions intact. Lids and lashes normal. Conjunctiva and sclera are non-icteric and not injected. Cornea within normal limits. Periorbital areas with no swelling, redness, or edema. ENT: Nares patent. No nasal discharge, no septal abnormalities noted. External auditory canals are clear. Oropharynx with no redness, swelling, or masses, exudates, or evidence of obstruction, uvula midline. Mucous membranes moist. Neck: Trachea midline, no thyromegaly or masses palpated, and no cervical lymphadenopathy. Supple, full range of motion without nuchal rigidity, or vertebral point tenderness. No Meningismus. Chest/axilla: Normal chest wall appearance and motion. Nontender with no deformity. No lesions are appreciated. Cardiovascular: Regular rate and rhythm with a normal S1 and S2. No gallops, murmurs, or rubs. Normal PMI, no JVD. No pulse deficits. Respiratory: Lungs have equal breath sounds bilaterally, clear to auscultation and percussion. No rales, rhonchi or wheezes noted. No increased work of breathing, no retractions or nasal flaring. Abdomen/GI: Soft, non-tender, with normal bowel sounds. No distension or tympany. No guarding or rebound. No evidence of tenderness throughout. Back: No spinal tenderness. No costovertebral tenderness. Full range of motion. Skin: Warm, dry with normal turgor. Normal color with no rashes, no lesions, and no evidence of cellulitis. MS/ Extremity: Pulses equal, no cyanosis. Neurovascular intact. Full, normal range of motion. Psych: Awake, alert, with orientation to person, place and time. Behavior, mood, and affect are within normal limits. 00:32 Neuro: Globally slow. Cranial nerves II through XII are intact. Left side of the body upper and lower extremity 4/5 motor. Patient is ambulatory although very slow. He needs to shuffle his gait on ambulation. His ambulation is also limited secondary to body habitus., 01:17 ECG was reviewed by the Attending Physician. EKG demonstrates normal sinus rhythm at 80 sp3 bpm with normal intervals, normal QRS, normal axis, normal axis ST segments without evidence of acute ischemia. Vital Signs: 00:17 Height 6 ft. 8 in. ; vc1 00:18 BP 143 / 79; Pulse 79; Resp 19 S; Temp 97.9(T); Pulse Ox 95% on R/A; ha1 00:49 Weight 179.5 kg; vc1 01:44 BP 102 / 52; Pulse 76; Resp 18 S; Pulse Ox 94% on R/A; ha1 02:21 BP 118 / 57; Pulse 76; Resp 20 S; Pulse Ox 95% on R/A; ha1 NIH Stroke Scale Scores: 00:20 NIHSS Score: 0 ha1 MDM: 00:11 Patient medically screened. sp3 00:33 Data reviewed: vital signs, nurses notes, old medical records, lab test result(s), EKG, sp3 radiologic studies. ED course: 58-year-old male with left-sided weakness with history of CVA. This was activated as a stroke alert. Workup will include CT scan of the head noncontrast, CT angiogram, laboratory values, EKG. Disposition pending workup and patient course with probable admission for neurological consultation. Patient currently does not have a neurologist as he is switching doctors.. 01:10 ED course: Denies stroke scale 0 currently. No injectable left weakness noted on return sp3 from CT scan.. 02:38 ED course: CT head and angiograms are negative. NIH stroke scale is 0. Patient is sp3 already on Plavix. Will safely discharge him home with neurology follow-up.. 04/07 00:12 Order name: Basic Metabolic Panel; Complete Time: 02:37 sp3 04/07 00:12 Order name: CBC with Diff sp3 04/07 00:12 Order name: Hepatic Function; Complete Time: 02:37 sp3 04/07 00:12 Order name: High Sensitivity Troponin; Complete Time: 02:37 sp3 04/07 00:12 Order name: Magnesium; Complete Time: 02:37 sp3 04/07 00:12 Order name: Protime (+inr); Complete Time: 02:37 sp3 04/07 00:12 Order name: Ptt, Activated; Complete Time: 02:37 sp3 04/07 00:52 Order name: Glucose, Ancillary Testing; Complete Time: 02:37 EDAR 04/07 01:24 Order name: CBC Smear Scan EDAR 04/07 00:12 Order name: CT Neck Angio sp3 04/07 00:12 Order name: CT Stroke Brain w/o Contrast sp3 04/07 00:12 Order name: Stroke CXR 1 View sp3 04/07 00:22 Order name: Head angio [facility] 04/07 00:12 Order name: Accucheck; Complete Time: 00:41 sp3 04/07 00:12 Order name: Cardiac monitoring; Complete Time: 00:36 sp3 04/07 00:12 Order name: EKG - Nurse/Tech; Complete Time: 00:49 sp3 04/07 00:12 Order name: IV Saline Lock; Complete Time: 00:36 sp3 04/07 00:12 Order name: Labs collected and sent; Complete Time: 00:36 sp3 04/07 00:12 Order name: NPO; Complete Time: 00:36 sp3 04/07 00:12 Order name: O2 Per Protocol; Complete Time: 00:36 sp3 04/07 00:12 Order name: O2 Sat Monitoring; Complete Time: 00:36 sp3 04/07 00:12 Order name: Stroke Swallow Screen; Complete Time: 00:36 sp3 Administered Medications: No medications were administered Point of Care Testing: Blood Glucose: 00:40 Blood Glucose: 185 mg/dL; ha1 Ranges: Critical Glucose Levels:Adult <50 mg/dl or >400 mg/dl <40 mg/dl or >180 mg/dl Disposition Summary: 04/07/24 02:39 Discharge Ordered Notes: Location: Home sp3 Condition: Stable sp3 Diagnosis - TIA, left weakness resolved sp3 Followup: sp3 - With: Private Physician - When: Upon discharge from the Emergency Department - Reason: Continuance of care Followup: sp3 - With: Kendall Putnam MD - When: Upon discharge from the Emergency Department - Reason: Continuance of care Discharge Instructions: - Discharge Summary Sheet sp3 - Transient Ischemic Attack, [id number] sp3 Forms: - Medication Reconciliation Form sp3 - Antibiotic Education sp3 - Prescription Opioid Use sp3 - Patient Portal Instructions sp3 - Leadership Thank You Letter sp3 NIH Stroke Scale - NIH Stroke Score Date: 04/07/2024 Time: 00:20 Total Score = 0 10. Dysarthria (speech clarity - read or repeat words) - 0(Normal) 11. Extinction and Inattention (visual/tactile/auditory/spatial/personal) - 0(No abnormality) 1a. Level of Consciousness (LOC) - 0(Alert) 1b. Level of Consciousness (LOC) (Month \T\ Age) - 0(Both) 1c. LOC Commands (Open \T\ Closes Eyes/Cor[employer] Officer [place] [facility]) - 0(Both) 2. Best Gaze (Lateral Gaze Paresis) - 0(Normal) 3. Visual Field Loss - 0(No visual loss) 4. Facial Palsy - 0(Normal) 5a. Left Arm: Motor (10-second hold) - 0(No drift) 5b. Right Arm: Motor (10-second hold) - 0(No drift) 6a. Left Leg: Motor (5-second hold - always test supine) - 0(No drift) 6b. Right Leg: Motor (5-second hold - always test supine) - 0(No drift) 7. Limb Ataxia (finger/nose \T\ heel/cunningham - test with eyes open) - 0(Absent) 8. Sensory Loss (pinprick arms/legs/face) - 0(Normal) 9. Best Language: Aphasia (description/naming/reading) - 0(No aphasia) Initials: ha1 Signatures: Dispatcher [employer] EDMS Lonny Nunez MD MD sp3 Latanya Dowd RN RN vc1 Corrections: (The following items were deleted from the chart) 00:13 00:13 CT-STROKE BRAIN W/O CONTRAST+CT.RAD.BRZ ordered. EDMS EDMS 00:13 00:13 Chest Single View+RAD.RAD.BRZ ordered. EDMS EDMS
[2024-04-07 03:12] LABS: Anisocytosis 1+; Blood Morphology Comment NOTED (NOT SEEN); Platelet Estimate DECR; White Blood Cell Scan OK (OK)
[2024-04-07 05:03] VITALS: TEMP 97.9
[2024-04-07 05:22] VITALS: BP 118/57; O2SAT 95
--- NOTE | 2024-04-07 10:09 | RAD REPORT ---
EXAM DESCRIPTION: RAD - Chest Single View - 04/07/2024 12:41 am CLINICAL HISTORY: Stroke alert. TECHNIQUE: AP chest. COMPARISON: None available for comparison. FINDINGS: CHEST: Heart: The cardiomediastinal silhouette is within normal limits. Lungs: No focal consolidation. Mediastinum: Unremarkable Pleura: No appreciable effusion. No pneumothorax. Bones: Intact IMPRESSION: No acute cardiopulmonary disease. Electronically signed by: Mitch Wong MD 04/07/2024 01:46 AM CDT RP Due to temporary technical issues with the PACS/Fluency reporting system, reports are being signed by the in house radiologist without review as a courtesy to ensure prompt reporting. The interpreting r adiologist is fully responsible for the content of the report.
--- NOTE | 2024-04-07 10:15 | RAD REPORT ---
EXAM DESCRIPTION: CT - Neck Angio - 04/07/2024 12:29 am CLINICAL HISTORY: 58 years, Male, stroke alert COMPARISON: CT head without contrast 04/06/2024 TECHNIQUE: Axial CTA images of the head and neck obtained following the administration of IV contras t. 3-D/MIP reformatted images available. This exam was performed according to our departmental dose-o ptimization program, which includes automated exposure control, adjustment of the mA and/or kV accord ing to patient size and/or use of iterative reconstruction technique. Assessment of carotid artery stenosis is based on measurements of the distal internal carotid artery diameter as the denominator for stenosis calcifications in the [place] symptomatic carotid end arterectomy trial (NASCET) stenosis criteria. FINDINGS: CTA head: Anterior circulation: The intracranial internal carotid arteries are patent. The internal carotid art eries bifurcate into patent A1 and M1 segments of the anterior and middle cerebral arteries respectiv rebecca. No evidence of flow-limiting stenosis, aneurysm, occlusion, or dissection in the anterior circul ation. The anterior communicating artery is patent. Posterior circulation: The intracranial vertebral, basilar, superior cerebellar, and posterior cerebr al arteries are patent. No evidence of stenosis, aneurysm, occlusion, or dissection in the posterior circulation. No definite acute intracranial abnormality identified. No acute abnormality of the osseous calvarium. Paranasal sinuses and mastoid air cells are well aerated. Small subcutaneous cyst posterior right sc alp suggestive of sebaceous cyst/epidermal inclusion cyst. CTA NECK: The aortic arch and origins of the great vessels are not fully included. The right common carotid artery is patent and bifurcates into patent internal and external carotid ar teries. No significant stenosis. No evidence of occlusion or dissection. The visualized left common carotid artery is patent and bifurcates into patent internal and external carotid arteries. No significant stenosis. No evidence of occlusion or dissection. The cervical vertebral arteries are patent throughout their course. No evidence of occlusion, stenosi s, or dissection. No definite acute abnormalities in the neck soft tissues. No apical pneumothorax. No acute osseous ab normalities. IMPRESSION: 1. No significant stenosis, occlusion, or aneurysm in the intracranial arterial circul ation. 2. No significant stenosis of the cervical carotid or vertebral arteries. Electronically signed by: Maeve Soni MD 04/07/2024 12:59 AM CDT RP Due to temporary technical issues with the PACS/Fluency reporting system, reports are being signed by the in house radiologist without review as a courtesy to ensure prompt reporting. The interpreting r adiologist is fully responsible for the content of the report.
--- NOTE | 2024-04-07 10:20 | RAD REPORT ---
EXAM DESCRIPTION: CT - Ct Stroke Brain Wo Cont - 04/07/2024 12:29 am ADDENDUM #1 THIS REPORT CONTAINS FINDINGS THAT MAY BE CRITICAL TO PATIENT CARE: I communicated the above findings by telephone with Dr. Lonny Nunez on 04/07/2024 12:52 AM CDT who demonstrated understanding of the ab ove finding(s)/recommendation(s). Electronically signed by: Christina Rebolledo MD 04/07/2024 12:52 AM CDT End of Addendum EXAM DESCRIPTION: CT Head Without Intravenous Contrast CLINICAL HISTORY: The patient is 58 years old and is Male; STROKE ALERT TECHNIQUE: Axial computed tomography images of the head/brain without intravenous contrast. Sagitt al and coronal reformatted images were created and reviewed. This CT exam was performed using one o r more of the following dose reduction techniques: automated exposure control, adjustment of the mA and/or kV according to patient size, and/or use of iterative reconstruction technique. COMPARISON: No relevant prior studies available. FINDINGS: BRAIN: Unremarkable. The whyte-white matter differentiation is preserved . No hemorrhag e. No significant white matter disease. No edema. No extra-axial fluid collections. VENTRICLES: Unremarkable. No ventriculomegaly. BONES/JOINTS: No acute fracture. SOFT TISSUES: Unremarkable. SINUSES: Unremarkable as visualized. No acute sinusitis. MASTOID AIR CELLS: Unremarkable as visualized. No mastoid effusion. ORBITS: Unremarkable as visualized. IMPRESSION: No acute intracranial findings. Electronically signed by: Christina Rebolledo MD 04/07/2024 12:44 AM CDT RP Due to temporary technical issues with the PACS/Fluency reporting system, reports are being signed by the in house radiologist without review as a courtesy to ensure prompt reporting. The interpreting r adiologist is fully responsible for the content of the report.
--- NOTE | 2024-04-07 12:09 | EKG ---
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
== END 2024-04-07 02:59 | disposition home or self-care (01) ==
LOC: ER 23:54
DX: G45.9 Transient cerebral ischemic attack, unspecified (principal)
CPT/HCPCS: 93005; 85025; 80048; 36415; 83735; 85610; 82947; 80076; 85730; 84484; 70496; 70498; 70450; 71045; 99284; Q9967

== ENCOUNTER 2024-05-07 10:24 | Day surgery (SDC) | payer OTHER ==
[2024-05-06 14:52] LABS: Absolute Lymphocytes (CBC) 0.9 K/uL (0.7-4.9); Absolute Monocytes 0.7 K/uL (0.1-1.3); Absolute Neutrophil 4.7 K/uL (1.8-8.0); Basophils % 0.3 % (0-1.3); Eosinophils % 0.2 % (0-4.4); Hematocrit 36.1 % (39.6-49.0); Hemoglobin 11.7 g/dL (13.6-17.9); Lymphocytes % 13.8 % (15.3-44.8); MCH 28.5 pg (27.0-35.0); MCHC 32.4 g/dL (32.0-36.0); MPV 9.2 fL (7.6-11.3); Monocytes % 11.1 % (3.3-12.3); Neutrophils % 74.6 % (41.7-73.7); Nucleated Red Blood Cells % 0.1 % (0-0); Platelets 76 thou/uL (152-406); Red Cell Distribution Width 17.7 % (12.1-15.2)
[2024-05-06 14:53] LABS: Anion Gap 11.9 mEq/L (5.0-15.0); Potassium 3.9 mEq/L (3.5-5.1)
[2024-05-06 15:02] LABS: PT Prothrombin Time 13.8 SECONDS (9.4-12.5); Protime INR 1.24
[2024-05-06 19:35] LABS: White Blood Cell Scan OK (OK)
[2024-05-06 19:36] LABS: Anisocytosis SLIGHT; Blood Morphology Comment NOTED (NOT SEEN); Platelet Estimate DECR
[2024-05-07] MEDS ORDERED: NA CHLORIDE 0.9% 250 ML ONE (11:32)
[2024-05-07] MEDS ORDERED: NA CHLORIDE 0.9% 1,000 ML ONE (11:32)
[2024-05-07] MEDS ORDERED: VANCOMYCIN 1 GM/VIAL ONE (11:32)
[2024-05-07] MEDS: VANCOMYCIN 1 GM in NA CHLORIDE 0.9% 250 ML IVPB ONE (12:01)
[2024-05-07] MEDS ORDERED: LIDOCAINE HCL/EPINEPHRINE 20 ML MDV ONE (12:30)
[2024-05-07] MEDS ORDERED: propofoL 200 MG/20 ML VIAL IV ONE (13:05)
[2024-05-07] MEDS ORDERED: LIDOCAINE 1% MPF 5 ML VIAL ONE (13:05)
[2024-05-07] MEDS ORDERED: FENTANYL CITR 100 MCG/2 ML ONE ×2 (13:06→14:55)
[2024-05-07] MEDS ORDERED: MIDAZOLAM HCL 2 MG/2 ML INJ ONE (13:06)
[2024-05-07] MEDS: LIDOCAINE HCL/EPINEPHRINE 20 ML MDV IJ ONE ×2 (14:10)
--- NOTE | 2024-05-07 14:26 | P.OP ---
Preoperative diagnosis: LEFT Inner Thigh Abscess Postoperative diagnosis: LEFT Inner Thigh Abscess Primary procedure: Excisional Debridement of LEFT Inner Thigh Abscess Anesthesia: GETA + Local Estimated blood loss: <5cc Specimen: Cultures, Debridement Tissues Findings: ~ 6cm x 4cm x 4cm into adipose Complications: None Transferred to: Recovery Room Condition: Good
[2024-05-07] MEDS ORDERED: ONDANSETRON 4 MG/2 ML VIAL ONE (14:28)
[2024-05-07 15:53] VITALS: BP 111/61; TEMP 97.4; O2SAT 99
--- NOTE | 2024-05-07 16:03 | OP ---
Date of Procedure: 05/07/2024 Surgeon: Ney Ny MD, Preoperative Diagnosis: Left inner thigh abscess. Postoperative Diagnosis: Left inner thigh abscess. Procedure Performed: Excisional debridement of left inner thigh abscess. Anesthesia: General endotracheal plus local with 1% lidocaine with epinephrine. Estimated Blood Loss: Less than 5 cc. Specimen: Culture sent for aerobic and anaerobic speciation. Debridement of tissue. Findings: 6 cm x 4 cm x 4 cm abscess and infected tissue and the adipose tissue on the left inner th igh. Complications: None. Disposition: Patient transferred to recovery room in good condition. Procedure In Detail: After informed consent was obtained, patient was brought into the operating melani m, prepped and draped in the usual sterile fashion after adequate anesthesia was achieved. I made an elliptical incision circumferentially around obviously an infected inner thigh abscess. The abscess material was encountered and cultured for both aerobic and anaerobic speciation. Dissection continu ed down using electrocautery circumferentially around the entire affected area and removed this tissu e with segment of fat and sent it off for pathologic examination. The area was copiously irrigated. Hemostasis was easily achieved with electrocautery. The wound was then packed with Vashe soaked Ker lix and a sterile dressing was placed over top. The patient tolerated the procedure without incident or complication, transferred to PACU in good condition. All counts were correct at the end of the case. SANDRA/MARIANA Voice ID: [id number] Report ID: [id number]
== END 2024-05-07 15:53 | disposition home or self-care (01) ==
LOC: OR 10:24
PROVIDERS: ATTEND Surgery
PROC: 0JBM0ZZ Excision of Left Upper Leg Subcutaneous Tissue and Fascia, Open Approach (ICD-10-PCS; principal; 2024-05-07 13:30)
DX: L02.416 Cutaneous abscess of left lower limb (principal); L72.0 Epidermal cyst
CPT/HCPCS: 11042; 87070; 85025; 80048; 36415; 87205 ×2; 85610; 82947; 88304; 85730; 87075; J2704; J2001; J2250; J3010 ×2; J2405; J7050; J7030

== ENCOUNTER 2024-05-07 18:05 | Emergency (ER) | payer OTHER ==
[2024-05-07] MEDS ORDERED: FENTANYL CITR 100 MCG/2 ML ONE (19:21)
--- NOTE | 2024-05-07 19:46 | EDPHYS ---
Physician Documentation [facility] Name: Colby Tilley Jr Age: 58 yrs Sex: Male : 1965 Arrival Date: 05/07/2024 Time: 18:05 Bed 4 Private MD: ED Physician Oscar Loredo HPI: 05/07 18:36 This 58 yrs old Male presents to ER via Wheelchair with complaints of Wound Check - rt from surgery today. 18:36 Patient had surgery today to drain a left thigh abscess. The wound was packed, and Phil rt bandage was placed over. Patient states that the Phil bandage rolled down and the packing fell out. Denies other acute complaints at this time, symptoms are mild in severity, no other aggravating or alleviating factors.. Historical: - Allergies: 18:14 Anesthesia; ld1 18:14 Aspirin; ld1 18:14 Lyrica; ld1 18:14 PENICILLINS; ld1 18:14 PROPOFOL (sensitive); ld1 - PMHx: 18:14 cirrhosis of liver; Diabetes - NIDDM; Hypertension; Left foot wound; leg swelling ld1 (Unknown); neuropathy (Unknown); PVD; - PSHx: 18:14 Gastric Bypass; ld1 - Immunization history:: Adult Immunizations up to date. - Infectious Disease History:: Denies. - Social history:: Smoking status: Patient denies any tobacco usage or history of. - Family history:: not pertinent. ROS: 18:36 Constitutional: Negative for fever, chills, and weight loss, Cardiovascular: Negative rt for chest pain, palpitations, and edema, Respiratory: Negative for shortness of breath, cough, wheezing, and pleuritic chest pain, Abdomen/GI: Negative for abdominal pain, nausea, vomiting, diarrhea, and constipation, Skin: Negative for injury, rash, and discoloration, 18:36 MS/extremity: Positive for Wound, Exam: 18:36 Constitutional: This is a well developed, well nourished patient who is awake, alert, rt and in no acute distress. Head/Face: Normocephalic, atraumatic. Chest/axilla: Normal chest wall appearance and motion. Nontender with no deformity. No lesions are appreciated. Cardiovascular: Regular rate and rhythm with a normal S1 and S2. No gallops, murmurs, or rubs. Normal PMI, no JVD. No pulse deficits. Respiratory: Lungs have equal breath sounds bilaterally, clear to auscultation and percussion. No rales, rhonchi or wheezes noted. No increased work of breathing, no retractions or nasal flaring. Abdomen/GI: Soft, non-tender, with normal bowel sounds. No distension or tympany. No guarding or rebound. No evidence of tenderness throughout. 18:36 Musculoskeletal/extremity: Surgical wound noted, no drainage, purulence. Vital Signs: 18:20 BP 120 / 57; Pulse 86; Resp 18; Temp 98; Pulse Ox 97% on R/A; Weight 173.73 kg; Height ld1 6 ft. 8 in. ; 19:30 BP 122 / 60; Pulse 81; Resp 17; Temp 98; Pulse Ox 98% ; Pain 3/10; bm8 18:20 Body Mass Index 42.07 (173.73 kg, 203.2 cm) ld1 19:30 Pain Scale: Adult bm8 [place] Coma Score: 19:30 Eye Response: spontaneous(4). Motor Response: obeys commands(6). Verbal Response: bm8 oriented(5). Total: 15. Procedures: 19:46 Performed Wound packing. Packed Vashe soaked Kerlix, apply dry Kerlix and Phil bandage rt with taping to wound.. MDM: 18:12 Patient medically screened. rt 19:46 Differential diagnosis: Postop wound care. Data reviewed: vital signs, nurses notes, rt old medical records, Reviewed operative note from earlier today. 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 Counseling: I had a detailed discussion with the patient and/or guardian regarding the historical points, exam findings, and any diagnostic results supporting the discharge/admit diagnosis, the need for outpatient follow up, to return to the emergency department if symptoms worsen or persist or if there are any questions or concerns that arise at home. 05/07 18:46 Order name: [facility]. Order: vasche; Complete Time: 19:30 rt 05/07 18:47 Order name: [facility]. Order: hold fentanyl until ready to repack wound; Complete Time: 19:30rt Administered Medications: 19:30 Drug: fentaNYL (PF) IM 100 mcg IM once Route: IM; Site: right vastus lateralis; bm8 20:00 Follow up: Response: No adverse reaction bm8 Disposition Summary: 05/07/24 19:45 Discharge Ordered Notes: Location: Home rt Problem: new rt Symptoms: have improved rt Condition: Stable rt Diagnosis - Postoperative wound check rt Followup: rt - With: Ney Ny MD - When: 5 - 6 days - Reason: Discharge Instructions: - Discharge Summary Sheet rt - Wound Packing rt Forms: - Medication Reconciliation Form rt - Antibiotic Education rt - Prescription Opioid Use rt - Patient Portal Instructions rt - Leadership Thank You Letter rt Signatures: Sera Gonzalez RN RN ld1 Oscar Loredo MD MD rt Steve Barnes, RN RN bm8
--- NOTE | 2024-05-07 19:46 | ER ---
Nurse's Notes [facility] Name: Colby Tilley Jr Age: 58 yrs Sex: Male : 1965 Arrival Date: 05/07/2024 Time: 18:05 Bed 4 Private MD: Diagnosis: Postoperative wound check Presentation: 05/07 18:14 Chief complaint: Patient states: Had I\T\D of L inner thigh wound today with Dr. Ny. ld1 Dressing and packing came off [employer]. Coronavirus screen: Client denies travel out of the [place] in the last 14 days. At this time, the client does not indicate any symptoms associated with coronavirus-19. Ebola Screen: Patient denies travel to an Ebola-affected area in the 21 days before illness onset. Initial Sepsis Screen: Does the patient meet any 2 criteria? No. Patient's initial sepsis screen is negative. Does the patient have a suspected source of infection? No. Patient's initial sepsis screen is negative. Risk Assessment: Do you want to hurt yourself or someone else? Patient reports no desire to harm self or others. Onset of symptoms was May 07, 2024. 18:14 Method Of Arrival: Wheelchair ld1 18:14 Acuity: ZENAIDA 4 ld1 Triage Assessment: 18:20 General: Appears uncomfortable, Behavior is calm, cooperative, appropriate for age. ld1 Pain: Complains of pain in L inner thigh Quality of pain is described as aching. Derm: Reports dressing and packing of I\T\D site came off. Historical: - Allergies: 18:14 Anesthesia; ld1 18:14 Aspirin; ld1 18:14 Lyrica; ld1 18:14 PENICILLINS; ld1 18:14 PROPOFOL (sensitive); ld1 - PMHx: 18:14 cirrhosis of liver; Diabetes - NIDDM; Hypertension; Left foot wound; leg swelling ld1 (Unknown); neuropathy (Unknown); PVD; - PSHx: 18:14 Gastric Bypass; ld1 - Immunization history:: Adult Immunizations up to date. - Infectious Disease History:: Denies. - Social history:: Smoking status: Patient denies any tobacco usage or history of. - Family history:: not pertinent. Screenin:30 [facility] ED Fall Risk Assessment (Adult) History of falling in the last 3 months, bm8 including since admission No falls in past 3 months (0 pts) Confusion or Disorientation No (0 pts) Intoxicated or Sedated No (0 pts) Impaired Gait Yes (1 pt) Mobility Assist Device Used Yes (1 pt) Altered Elimination No (0 pt) Score/Fall Risk Level 0 - 2 = Low Risk Oriented to surroundings, Maintained a safe environment, Educated pt \T\ family on fall prevention, incl call for assistance when getting out of bed, Assessed \T\ reinforced patient's understanding of fall precautions, Hourly rounding (assess needs \T\ fall precautionary measures) done, Used ambulatory aids as needed (educated on \T\ assisted with). Abuse screen: Denies threats or abuse. Nutritional screening: No deficits noted. Tuberculosis screening: No symptoms or risk factors identified. Assessment: 18:29 Reassessment: Patient appears in no apparent distress at this time. Patient and/or db family updated on plan of care and expected duration. Pain level reassessed. Patient is alert, oriented x 3, equal unlabored respirations, skin warm/dry/pink. General: Appears in no apparent distress. comfortable, Behavior is calm, cooperative. 19:30 Reassessment: Patient appears in no apparent distress at this time. Patient and/or bm8 family updated on plan of care and expected duration. Pain level reassessed. Patient is alert, oriented x 3, equal unlabored respirations, skin warm/dry/pink. General: Appears in no apparent distress. comfortable, Behavior is calm, cooperative, appropriate for age. Pain: Complains of pain in medial aspect of left thigh Pain does not radiate. Pain currently is 3 out of 10 on a pain scale. Neuro: No deficits noted. Level of Consciousness is awake, alert, obeys commands, Oriented to person, place, time, situation, Appropriate for age. Cardiovascular: Denies chest pain, lightheadedness, palpitations, shortness of breath, Capillary refill < 3 seconds Patient's skin is warm and dry. Respiratory: Airway is patent Respiratory effort is even, unlabored, Respiratory pattern is regular, symmetrical. GI: No deficits noted. No signs and/or symptoms were reported involving the gastrointestinal system. : No signs and/or symptoms were reported regarding the genitourinary system. EENT: No signs and/or symptoms were reported regarding the EENT system. Derm: Wound noted medial aspect of left thigh Wound is post surgical site on left inner thigh Reports packing came out. Musculoskeletal: No signs and/or symptoms reported regarding the musculoskeletal system. Vital Signs: 18:20 BP 120 / 57; Pulse 86; Resp 18; Temp 98; Pulse Ox 97% on R/A; Weight 173.73 kg; Height ld1 6 ft. 8 in. ; 19:30 BP 122 / 60; Pulse 81; Resp 17; Temp 98; Pulse Ox 98% ; Pain 3/10; bm8 18:20 Body Mass Index 42.07 (173.73 kg, 203.2 cm) ld1 19:30 Pain Scale: Adult bm8 [place] Coma Score: 19:30 Eye Response: spontaneous(4). Motor Response: obeys commands(6). Verbal Response: bm8 oriented(5). Total: 15. ED Course: 18:09 Patient arrived in ED. im 18:09 Oscar Loredo MD is Attending Physician. rt 18:13 Arm band placed on Patient placed in an exam room, on a stretcher. ld1 18:15 Triage completed. ld1 18:28 Vania Calvillo, RN is Primary Nurse. db 19:19 Steve Barnes, RN is Primary Nurse. bm8 19:30 Patient has correct armband on for positive identification. Placed in gown. Bed in low bm8 position. Call light in reach. Side rails up X 1. Client placed on continuous cardiac and pulse oximetry monitoring. NIBP monitoring applied. Pulse ox on. NIBP on. Door closed. Noise minimized. Warm blanket given. Pillow given. Verbal reassurance given. Head of bed lowered. 19:30 Assisted provider with: wound packing on left inner thigh. Patient did not have IV bm8 access during this emergency room visit. 19:45 Ney Ny MD is Referral Physician. rt 20:00 Provided Education on: wound care, post er care. bm8 Administered Medications: 19:30 Drug: fentaNYL (PF) IM 100 mcg IM once Route: IM; Site: right vastus lateralis; bm8 20:00 Follow up: Response: No adverse reaction bm8 Medication: 19:30 VIS not applicable for this client. bm8 Outcome: 19:45 Discharge ordered by . rt 20:00 Discharged to home ambulatory, bm8 20:00 Condition: stable 20:00 Discharge instructions given to patient, Instructed on discharge instructions, follow up and referral plans. safety practices, Demonstrated understanding of instructions, follow-up care, medications, 20:01 Patient left the ED. bm8 Signatures: Sera Gonzalez, RN RN ld1 Vania Calvillo, RN RN db Oscar Loredo MD MD rt Lilian Jo Brad RN RN bm8
[2024-05-07 20:05] VITALS: TEMP 98
[2024-05-07 20:07] VITALS: BP 122/60; O2SAT 98
== END 2024-05-07 20:01 | disposition home or self-care (01) ==
LOC: ER 18:05
DX: Z48.01 Encounter for change or removal of surgical wound dressing (principal)
CPT/HCPCS: 96372; 99284; J3010

== ENCOUNTER 2024-10-16 11:55 | Emergency (ER) | payer OTHER ==
--- NOTE | 2024-10-16 12:38 | RAD REPORT ---
EXAMINATION: CT HEAD WITHOUT CONTRAST CLINICAL INDICATION: Male, 58 years old.NUMBNESS TECHNIQUE: Axial CT images from the skull base to the vertex without intravenous contrast. Coronal an d sagittal reformatted images were created from the data set. One or more of the following dose reduction techniques were used: Automated exposure control, adjustment of the mA and/or kV according to patient size, and/or iterative reconstruction. Unless otherwise specified, incidental findings do not require dedicated imaging follow-up. [id number]. COMPARISON: 04/07/2024, 01/25/2024 FINDINGS: INTRACRANIAL: No acute intracranial hemorrhage. No hydrocephalus. No mass effect or midline shift. No significant white matter disease.Process seen chronic right thalamic lacunar infarct not as well appreciated. VASCULATURE: No visualized abnormalities in the arteries or dural venous sinuses. SCALP/SKULL: No significant soft tissue or osseous abnormalities. SINUSES: The visualized paranasal sinuses and mastoid air cells are predominantly clear. IMPRESSION: No acute intracranial abnormality.
--- NOTE | 2024-10-16 12:48 | RAD REPORT ---
EXAM: Chest Single View HISTORY: COUGH COMPARISON: 04/07/2024 FINDINGS: LUNGS/PLEURA: Mild increased right perihilar opacities, likely projectional. There is prominence of t he interstitial markings in the lung bases which is chronic. MEDIASTINUM: The mediastinal silhouette is within normal limits. CARDIAC: The cardiac silhouette is within normal limits. UPPER ABDOMEN: No significant abnormality. BONES: No acute abnormality. LINES/TUBES/OTHER: N/A IMPRESSION: Marginally increased right perihilar opacities is likely projectional. No definite acute process iden tified.
[2024-10-16] MEDS ORDERED: NA CHLORIDE 0.9% 1,000 ML ONE (12:59)
[2024-10-16 13:13] LABS: Absolute Eosinophils 0.1 K/uL (0-0.5); Absolute Lymphocytes (CBC) 0.6 K/uL (0.7-4.9); Absolute Monocytes 0.4 K/uL (0.1-1.3); Absolute Neutrophil 1.6 K/uL (1.8-8.0); Basophils % 0.8 % (0-1.3); Hematocrit 25.2 % (39.6-49.0); Hemoglobin 8.1 g/dL (13.6-17.9); Lymphocytes % 24.1 % (15.3-44.8); MCH 26.6 pg (27.0-35.0); MCV 83.2 fL (80-100); MPV 8.6 fL (7.6-11.3); Monocytes % 13.7 % (3.3-12.3); Neutrophils % 59.4 % (41.7-73.7); Nucleated Red Blood Cells % 0.2 % (0-0); Platelets 95 thou/uL (152-406); RBC Red Blood Cell Count 3.03 M/uL (4.33-5.43); Red Cell Distribution Width 17.5 % (12.1-15.2)
[2024-10-16 13:16] LABS: Protime INR 1.24
[2024-10-16 13:26] LABS: Specific Gravity > 1.030 (1.005-1.030); Sqamous Epithelial <5 /HPF (None Seen); Urine Bacteria None Seen /HPF (<20); Urine Bilirubin NEGATIVE (Negative); Urine Blood Trace (Negative); Urine Clarity Clear (Clear); Urine Color Light-Yellow (Yellow); Urine Culture Reflex Order NOT NEEDED; Urine Glucose 4+ (Over) (Negative); Urine Ketones NEGATIVE (Negative); Urine Microscopic Reflex YN ORDER UMIC; Urine Nitrite NEGATIVE (Negative); Urine Protein NEGATIVE (Negative); Urine RBC <5 /HPF (None Seen); Urine Urobilinogen Normal (Normal); Urine WBC <5 /HPF (<5); Urine pH 5.5 (5.0-7.0)
[2024-10-16 13:28] LABS: Albumin 2.5 g/dL (3.4-5.0); Albumin/Globulin Ratio 0.6 (1.1-1.8); Anion Gap 11.2 mEq/L (5.0-15.0); Bilirubin Direct 0.5 mg/dL (0-0.2); Bilirubin Indirect, Calculated 1.2 mg/dL (0.2-0.8); Bilirubin Total 1.7 mg/dL (0.2-1.0); Globulin 4.4 g/dL (2.3-3.5); Magnesium 1.8 mg/dL (1.6-2.4); Potassium 4.2 mEq/L (3.5-5.1); Protein, Total 6.9 g/dL (6.4-8.2); Troponin High Sensitivity 7.7 pg/mL (<58.9)
[2024-10-16 13:59] LABS: Platelet Estimate DECR; White Blood Cell Scan OK (OK)
[2024-10-16 14:00] LABS: Blood Morphology Comment NOT SEEN (NOT SEEN)
--- NOTE | 2024-10-16 14:53 | EDPHYS ---
Physician Documentation [facility] Name: Colby Tilley Jr Age: 58 yrs Sex: Male : 1965 Arrival Date: 10/16/2024 Time: 11:55 Bed 20 Private MD: BENIGNO Physician Moreno Agee HPI: 10/16 14:44 This 58 yrs old Male presents to ER via Ambulatory with complaints of Leg namrata Swelling - numbness/left. 14:44 The patient presents with decreased range of motion. The complaints affect the lateral namrata aspect of left thigh, lateral aspect of left calf, medial aspect of left thigh, medial aspect of left calf, left quadriceps and left cunningham. Context: The problem was sustained at an unknown site. Modifying factors: The symptoms are alleviated by remaining still, the symptoms are aggravated by movement, weight bearing. Associated signs and symptoms: The patient has no apparent associated signs or symptoms. 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 The patient presents with dizziness, generalized weakness. Modifying factors: The symptoms are alleviated by nothing, the symptoms are aggravated by nothing. Historical: - Allergies: 12:12 Anesthesia; kl 12:12 Aspirin; kl 12:12 Lyrica; kl 12:12 PENICILLINS; kl 12:12 PROPOFOL (sensitive); kl - PMHx: 12:12 cirrhosis of liver; Diabetes - NIDDM; Hypertension; Left foot wound; leg swelling kl (Unknown); neuropathy (Unknown); PVD; stroke (PVD); - PSHx: 12:12 Gastric Bypass; kl - Immunization history:: Adult Immunizations up to date. - Infectious Disease History:: Denies. - Social history:: Smoking status: Patient denies any tobacco usage or history of. ROS: 14:46 Constitutional: Negative for fever, chills, and weight loss, Eyes: Negative for injury, namrata pain, redness, and discharge, ENT: Negative for injury, pain, and discharge, Neck: Negative for injury, pain, and swelling, Cardiovascular: Negative for chest pain, palpitations, and edema, Respiratory: Negative for shortness of breath, cough, wheezing, and pleuritic chest pain, Abdomen/GI: Negative for abdominal pain, nausea, vomiting, diarrhea, and constipation, Back: Negative for injury and pain, : Negative for injury, bleeding, discharge, and swelling, Skin: Negative for injury, rash, and discoloration, Psych: Negative for depression, anxiety, suicide ideation, homicidal ideation, and hallucinations, Allergy/Immunology: Negative for hives, rash, and allergies, Endocrine: Negative for neck swelling, polydipsia, polyuria, polyphagia, and marked weight changes, Hematologic/Lymphatic: Negative for swollen nodes, abnormal bleeding, and unusual bruising, 14:46 MS/extremity: Positive for decreased range of motion, pain, of the left leg, 14:46 Neuro: Positive for weakness, Negative for seizure activity, near syncope, visual changes, Exam: 14:46 Constitutional: This is a well developed, well nourished patient who is awake, alert, namrata and in no acute distress. Head/Face: Normocephalic, atraumatic. Eyes: Pupils equal round and reactive to light, extra-ocular motions intact. Lids and lashes normal. Conjunctiva and sclera are non-icteric and not injected. Cornea within normal limits. Periorbital areas with no swelling, redness, or edema. ENT: Nares patent. No nasal discharge, no septal abnormalities noted. Tympanic membranes are normal and external auditory canals are clear. Oropharynx with no redness, swelling, or masses, exudates, or evidence of obstruction, uvula midline. Mucous membranes moist. Neck: Trachea midline, no thyromegaly or masses palpated, and no cervical lymphadenopathy. Supple, full range of motion without nuchal rigidity, or vertebral point tenderness. No Meningismus. Chest/axilla: Normal chest wall appearance and motion. Nontender with no deformity. No lesions are appreciated. Respiratory: Lungs have equal breath sounds bilaterally, clear to auscultation and percussion. No rales, rhonchi or wheezes noted. No increased work of breathing, no retractions or nasal flaring. Abdomen/GI: Soft, non-tender, with normal bowel sounds. No distension or tympany. No guarding or rebound. No evidence of tenderness throughout. Back: No spinal tenderness. No costovertebral tenderness. Full range of motion. Male : Normal genitalia with no discharge or lesions. Skin: Warm, dry with normal turgor. Normal color with no rashes, no lesions, and no evidence of cellulitis. Neuro: Awake and alert, GCS 15, oriented to person, place, time, and situation. Cranial nerves II-XII grossly intact. Motor strength 5/5 in all extremities. Sensory grossly intact. Cerebellar exam normal. Normal gait. Psych: Awake, alert, with orientation to person, place and time. Behavior, mood, and affect are within normal limits. 14:46 Cardiovascular: Rate: tachycardic, actual rate is 119 bpm, Rhythm: regular, Pulses: Pulses are 4+ in bilateral radial, brachial, femoral, popliteal, posterior tibial and and dorsalis pedis arteries.. Heart sounds: normal, Edema: is not appreciated, JVD: is not appreciated, 14:46 ECG was reviewed by the Attending Physician. Vital Signs: 12:08 BP 119 / 79; Pulse 118; Resp 20; Temp 98.3(TE); Pulse Ox 99% ; Weight 190.51 kg (R); kl Height 6 ft. 8 in. ; 13:00 BP 134 / 76; Pulse 98; Resp 16; Pulse Ox 97% ; me1 14:00 BP 124 / 58; Pulse 92; Resp 17; Pulse Ox 100% ; me1 15:00 BP 125 / 74; Pulse 83; Resp 15; Pulse Ox 99% ; me1 16:00 BP 106 / 63; Pulse 88; Resp 14; Pulse Ox 97% ; me1 16:30 BP 124 / 70; Pulse 93; Resp 14; Temp 98.2; Pulse Ox 97% ; me1 12:08 Body Mass Index 46.14 (190.51 kg, 203.2 cm) kl MDM: 12:01 Medical Screening Exam initiated namrata 14:48 Differential diagnosis: contusion, tendonitis. Differential Diagnosis altered mental namrata status, sepsis, flu. Differential diagnosis: cardiac arrhythmia, CVA, generalized weakness, GI bleed, hyperventilation, hypovolemia, idiopathic dizziness, sepsis, syncope, TIA, vertigo. Data reviewed: vital signs, nurses notes, EMS record, lab test result(s), EKG, radiologic studies, CT scan, plain films. Consideration of Admission/Observation Patient was admitted/placed on observation. Escalation of care including admission/observation considered. I considered the following discharge prescriptions or medication management in the emergency department Medications were administered in the Emergency Department. See MAR. Independent interpretation of the following test(s) in the Emergency Department EKG: See my EKG interpretation above. Test considered but Not performed: MRI: no mri. 10/16 12:02 Order name: Basic Metabolic Panel; Complete Time: 14:27 [facility] 10/16 12:02 Order name: CBC with Diff; Complete Time: 14:27 [facility] 10/16 12:02 Order name: LFT's; Complete Time: 14:27 [facility] 10/16 12:02 Order name: Magnesium; Complete Time: 14:27 [facility] 10/16 12:02 Order name: NT PRO-BNP; Complete Time: 14:27 [facility] 10/16 12:02 Order name: PT-INR; Complete Time: 14:27 [facility] 10/16 12:02 Order name: Troponin HS; Complete Time: 14:27 [facility] 10/16 12:02 Order name: Urinalysis w/ reflexes; Complete Time: 14:27 [facility] 10/16 14:00 Order name: CBC Smear Scan; Complete Time: 14:27 EDMS 10/16 14:41 Order name: TIBC [facility] 10/16 14:41 Order name: Ferritin [facility] 10/16 14:41 Order name: Iron Level 10/16 14:43 Order name: AMMONIA [facility] 10/16 14:53 Order name: Type And Screen 10/16 12:02 Order name: XRAY Chest (1 view); Complete Time: 14:27 [facility] 10/16 12:02 Order name: CT Head Brain wo Cont; Complete Time: 14:27 [facility] 10/16 14:39 Order name: Pelvis XRAY 10/16 14:39 Order name: Femur Left XRAY 10/16 14:39 Order name: Knee Left 3 View XRAY 10/16 14:42 Order name: US Extremity Venous W Compression Thomas 10/16 12:02 Order name: EKG; Complete Time: 12:03 [facility] 10/16 12:02 Order name: Cardiac monitoring; Complete Time: 13:16 [facility] 10/16 12:02 Order name: EKG - Nurse/Tech; Complete Time: 13:16 [facility] 10/16 12:02 Order name: IV Saline Lock; Complete Time: 13:03 [facility] 10/16 12:02 Order name: Labs collected and sent; Complete Time: 13:03 [facility] 10/16 12:02 Order name: O2 Per Protocol; Complete Time: 13:03 [facility] 10/16 12:02 Order name: O2 Sat Monitoring; Complete Time: 13:03 [facility] EC:46 Rate is 92 beats/min. Rhythm is regular. QRS [place] is Normal. IN interval is normal. QRS namrata interval is normal. QT interval is normal. No Q waves. T waves are Normal. No ST changes noted. Clinical impression: Normal ECG and No evidence of ischemia. Interpreted by me. Reviewed by me. Administered Medications: 13:15 Drug: NS 0.9% IV 1000 ml IV at 1000 ml once; to be given as a bolus over 60 minutes me1 Route: IV; Rate: 1000 ml; Site: right antecubital; 16:53 Follow up: Response: No adverse reaction; IV Status: Completed infusion; IV Intake: me1 1000ml 16:42 Not Given (Patient Refused): rocephin1 grams IV at per protocol once; Given slow IV me1 push per pharmacy instructions 16:43 Not Given (Patient Refused): [id number] mg IVP once; dilute with 10 mL 0.9% NaCl; me1 give over 2 minutes 16:43 Not Given (Patient Refused): [id number] mg IVP once me1 16:43 Not Given (Patient Refused): pantoprazole8 mg/hr IV at 25 ml/hr continuous; (Standard me1 dilution is 80 mg in 250 mL NS) Disposition Summary: 10/16/24 15:45 Transfer Ordered Notes: Transfer Location: [facility] namrata Reason: Higher level of care namrata Condition: Fair(10/16/24 15:45) namrata Problem: new(10/16/24 15:45) namrata Symptoms: have improved(10/16/24 15:45) namrata Accepting Physician: to [facility](10/16/24 16:53) me1 Diagnosis - GI Bleed/ Gastrointestinal hemorrhage, unspecified - upper namrata - Weakness(10/16/24 15:45) namrata - Pain in left leg namrata - Obesity, unspecified namrata Forms: - Medication Reconciliation Form namrata - SBAR form namrata Signatures: Dispatcher [employer] EDYisel Rosado RN RN kl Anderson, Corey, MD MD cha Eddleman, Michelle RN RN me1 Corrections: (The following items were deleted from the chart) 14:39 14:39 Femur Left+RAD.RAD.BRZ ordered. EDMS EDMS 14:39 14:39 Knee Left 3 View+RAD.RAD.BRZ ordered. EDMS EDMS 14:43 14:43 AMMONIA+C.LAB.BRZ ordered. EDMS EDMS 15:42 14:52 Inpatient Admission namrata namrata 15:42 14:52 Colby Lanza namrata namrata 15:42 14:52 Telemetry/MedSurg (Inpatient) namrata namrata 15:42 14:52 Fair namrata namrata 15:42 14:52 new namrata namrata 15:42 14:52 are unchanged namrata namrata 15:42 14:52 Standard namrata namrata 15:42 14:52 namrata namrata 15:42 14:52 Weakness namrata namrata 15:42 14:52 Alcoholic cirrhosis of liver namrata namrata 15:42 14:52 Other pancytopenia namrata namrata 15:42 14:52 Type 2 diabetes mellitus with hyperglycemia namrata namrata 16:53 15:45 to [facility] namrata me1
--- NOTE | 2024-10-16 14:53 | ER ---
Nurse's Notes [facility] Name: Colby Tilley Jr Age: 58 yrs Sex: Male : 1965 Arrival Date: 10/16/2024 Time: 11:55 Bed 20 Private MD: Diagnosis: GI Bleed/ Gastrointestinal hemorrhage, unspecified-upper;Weakness;Pain in left leg;Obesity, unspecified Presentation: 10/16 12:08 Chief complaint: Patient states: decrease in left leg movement and increase in numbness kl worsening x 5 weeks has reported to physical therapist with no results reports worsening neuropathy and leg give out. Coronavirus screen: Vaccine status: Patient reports receiving the 2nd dose of the covid vaccine. Ebola Screen: Patient negative for fever greater than or equal to 101.5 degrees Fahrenheit, and additional compatible Ebola Virus Disease symptoms. Initial Sepsis Screen: Does the patient meet any 2 criteria? No. Patient's initial sepsis screen is negative. Risk Assessment: Do you want to hurt yourself or someone else? Patient reports no desire to harm self or others. 12:08 Method Of Arrival: Ambulatory kl 12:08 Acuity: ZENAIDA 3 kl 12:13 Note pt reports has not had mediations filled x 1 months. kl 16:43 Initial Sepsis Screen: Does the patient have a suspected source of infection? No. me1 Patient's initial sepsis screen is negative. Onset of symptoms is unknown. Triage Assessment: 12:13 General: Appears uncomfortable, Behavior is cooperative. Pain: Complains of pain in kl left foot and left leg. Historical: - Allergies: 12:12 Anesthesia; kl 12:12 Aspirin; kl 12:12 Lyrica; kl 12:12 PENICILLINS; kl 12:12 PROPOFOL (sensitive); kl - PMHx: 12:12 cirrhosis of liver; Diabetes - NIDDM; Hypertension; Left foot wound; leg swelling kl (Unknown); neuropathy (Unknown); PVD; stroke (PVD); - PSHx: 12:12 Gastric Bypass; kl - Immunization history:: Adult Immunizations up to date. - Infectious Disease History:: Denies. - Social history:: Smoking status: Patient denies any tobacco usage or history of. Screenin:30 [facility] ED Fall Risk Assessment (Adult) History of falling in the last 3 months, me1 including since admission No falls in past 3 months (0 pts) Confusion or Disorientation No (0 pts) Intoxicated or Sedated No (0 pts) Impaired Gait Yes (1 pt) Mobility Assist Device Used Yes (1 pt) Altered Elimination No (0 pt) Score/Fall Risk Level 0 - 2 = Low Risk Maintained a safe environment, Provided non-skid footwear, Hourly rounding (assess needs \T\ fall precautionary measures) done. Abuse screen: Denies threats or abuse. Nutritional screening: No deficits noted. Tuberculosis screening: No symptoms or risk factors identified. Assessment: 12:30 General: Appears comfortable, obese, well groomed, well developed, Behavior is calm, me1 cooperative, appropriate for age, Reports decrease in left leg movement and increase in numbness worsening x 5 weeks has reported to physical therapist with no results reports worsening neuropathy and leg give out. Pain: Complains of pain in left leg and left foot Pain does not radiate. Pain currently is 5 out of 10 on a pain scale. Quality of pain is described as burning, numb, Pain began gradually, over the past 5 weeks Is continuous. Neuro: Level of Consciousness is awake, alert, obeys commands, Oriented to person, place, time, situation, Appropriate for age. Cardiovascular: Patient's skin is warm and dry. Respiratory: Airway is patent Respiratory effort is even, unlabored, Respiratory pattern is regular, symmetrical. GI: No signs and/or symptoms were reported involving the gastrointestinal system. : No signs and/or symptoms were reported regarding the genitourinary system. EENT: No signs and/or symptoms were reported regarding the EENT system. Derm: Skin is intact, is healthy with good turgor, Skin is pink, warm \T\ dry. Musculoskeletal: Reports numbness in left cunningham and left quadriceps and medial aspect of left calf and medial aspect of left thigh and lateral aspect of left calf and lateral aspect of left thigh and left leg and left foot pain in left cunningham and left quadriceps and medial aspect of left calf and medial aspect of left thigh and lateral aspect of left calf and lateral aspect of left thigh and left leg and left foot since 5 weeks ago, worsening.. 16:50 Reassessment: Patient wants to leave AMA. States he does not want to be transferred for [facility] as he can be seen locally outpatient. Vital Signs: 12:08 BP 119 / 79; Pulse 118; Resp 20; Temp 98.3(TE); Pulse Ox 99% ; Weight 190.51 kg (R); Height 6 ft. 8 in. ; 13:00 BP 134 / 76; Pulse 98; Resp 16; Pulse Ox 97% ; me1 14:00 BP 124 / 58; Pulse 92; Resp 17; Pulse Ox 100% ; me1 15:00 BP 125 / 74; Pulse 83; Resp 15; Pulse Ox 99% ; me1 16:00 BP 106 / 63; Pulse 88; Resp 14; Pulse Ox 97% ; me1 16:30 BP 124 / 70; Pulse 93; Resp 14; Temp 98.2; Pulse Ox 97% ; me1 12:08 Body Mass Index 46.14 (190.51 kg, 203.2 cm) ED Course: 11:57 Patient arrived in ED. ra3 12:01 Moreno Agee MD is Attending Physician. namrata 12:12 Triage completed. 12:26 CT Head Brain wo Cont In Process Unspecified. EDMS 12:30 No provider procedures requiring assistance completed. me1 12:30 Patient has correct armband on for positive identification. Bed in low position. Call nd1 light in reach. Side rails up X2. Provided Education on: POC. Verbalized understanding.. Client placed on continuous cardiac and pulse oximetry monitoring. NIBP monitoring applied. monitor and storage bin tender on. Pulse ox on. NIBP on. 12:42 XRAY Chest (1 view) In Process Unspecified. EDMS 12:49 Katlyn Gray, RN is Primary Nurse. nd1 13:02 Initial lab(s) drawn, by nd, sent to lab. Inserted saline lock: 22 gauge in right [facility] antecubital area, using aseptic technique. 13:03 Basic Metabolic Panel Sent. me1 13:03 CBC with Diff Sent. me1 13:03 LFT's Sent. me1 13:03 Magnesium Sent. me1 13:03 NT PRO-BNP Sent. me1 13:03 PT-INR Sent. me1 13:03 Troponin HS Sent. me1 13:16 Urinalysis w/ reflexes Sent. me1 13:16 Urine collected: clean catch specimen, clear, EKG done, by ED staff, reviewed by Moreno Agee MD. 14:51 Colby Lanza MD is Hospitalizing Provider. namrata 15:13 Pelvis XRAY In Process Unspecified. EDMS 15:13 Femur Left XRAY In Process Unspecified. EDMS 15:13 Knee Left 3 View XRAY In Process Unspecified. EDMS 15:41 US Extremity Venous W Compression Thomas In Process Unspecified. EDMS 16:43 Iron Level Sent. me1 16:51 Arm band placed on Patient placed in an exam room. me1 16:52 IV discontinued, intact, bleeding controlled, No redness/swelling at site. Pressure me1 dressing applied. Administered Medications: 13:15 Drug: NS 0.9% IV 1000 ml IV at 1000 ml once; to be given as a bolus over 60 minutes me1 Route: IV; Rate: 1000 ml; Site: right antecubital; 16:53 Follow up: Response: No adverse reaction; IV Status: Completed infusion; IV Intake: me1 1000ml 16:42 Not Given (Patient Refused): rocephin1 grams IV at per protocol once; Given slow IV me1 push per pharmacy instructions 16:43 Not Given (Patient Refused): [id number] mg IVP once; dilute with 10 mL 0.9% NaCl; me1 give over 2 minutes 16:43 Not Given (Patient Refused): [id number] mg IVP once me1 16:43 Not Given (Patient Refused): pantoprazole8 mg/hr IV at 25 ml/hr continuous; (Standard me1 dilution is 80 mg in 250 mL NS) Medication: 12:30 VIS not applicable for this client. me1 Intake: 16:53 IV: 1000ml; Total: 1000ml. me1 Outcome: 14:52 Decision to Hospitalize by Provider. [facility] 15:45 ER care complete, transfer ordered by . [facility] 16:52 AMA AMA form signed me1 16:52 Condition: stable 16:52 Discharge instructions given to patient, Instructed on follow up and referral plans. Demonstrated understanding of instructions, follow-up care, 16:53 Patient left the ED. me1 Signatures: Dispatcher [employer] Yisel Taylor, Moreno Sanabria RN, MD MD cha Eddleman, Michelle, RN RN me1 Ana Melvin ra3 Corrections: (The following items were deleted from the chart) 12:52 12:08 Chief complaint: Patient states: decrease in left leg movement and increase in me1 numbness worsening x 5 weeks has reported to physical therapist with no results reports worsening neuropathy and leg give out kl 16:44 12:08 Chief complaint: Patient states: decrease in left leg movement and increase in me1 numbness worsening x 5 weeks has reported to physical therapist with no results reports worsening neuropathy and leg give out me1
[2024-10-16] MEDS ORDERED: FAMOTIDINE 20 MG/2 ML VIAL IV ONE (15:03)
[2024-10-16] MEDS ORDERED: CEFTRIAXONE 1000 MG/VIAL ONE (15:03)
--- NOTE | 2024-10-16 15:21 | RAD REPORT ---
EXAMINATION: Femur Left CLINICAL INDICATION: Male, 58 years old. PAIN COMPARISON: No prior exam. FINDINGS: No acute fracture. No malalignment/dislocation. Left acetabular and tricompartmental knee degenerative changes. Other: n/a IMPRESSION: No left femur fracture identified.
--- NOTE | 2024-10-16 15:21 | RAD REPORT ---
EXAM: Knee Left 3 View INDICATION: PAIN COMPARISON: None FINDINGS: No acute fracture. No significant knee effusion. Tricompartmental degenerative changes which are most advanced in the medial and patellofemoral compar tments. Moderate medial compartment and moderate to severe patellofemoral compartment narrowing. Mild lateral compartment spurring. Other: n/a IMPRESSION: No evidence of acute osseous abnormality involving the imaged knee.
--- NOTE | 2024-10-16 15:22 | RAD REPORT ---
EXAMINATION: Pelvis CLINICAL INDICATION: Male, 58 years old. PAIN COMPARISON: No prior exam. FINDINGS: No acute fracture. No malalignment/dislocation. Mild bilateral acetabular degenerative changes. Other: n/a IMPRESSION: No acute osseous abnormality involving the bony pelvis.
--- NOTE | 2024-10-16 15:45 | RAD REPORT ---
EXAMINATION: US LOWER EXTREMITY VENOUS DOPPLER BILATERAL CLINICAL INDICATION: Male, 58 years old.Pain;Swelling TECHNIQUE: Complete bilateral duplex sonography of the lower extremity veins was performed. The exami nation included compression for vein patency, color Doppler imaging and flow augmentation in response to distal compression of the distal external iliac, common femoral, femoral, popliteal, kaleb liya, tibial and great saphenous veins. [id number]. COMPARISON: No prior exams FINDINGS: Duplex sonography imaging demonstrates all deep examined to be fully compressible with spontaneous, p hasic and augmented flow bilaterally. IMPRESSION: No evidence of deep venous thrombosis seen in either lower extremity.
[2024-10-16 16:28] LABS: Ferritin 7.6 ng/mL (26-388)
--- NOTE | 2024-10-16 16:30 | P.CNS ---
Date of Consult: 10/16/24 Reason for Consult: Eval for admission Requesting Physician: Moreno Agee Chief Complaint: Left leg weakness/pain, melena History of Present Illness: Patient with history of CVA presents to the emergency department with chief complaint of worsening left leg pain/paresthesias. He reports the symptoms been ongoing over the course the last 5 weeks but much worse the last 1 week. He reports he is having difficulty ambulating, was unable to get off the toilet by himself and having significant pain and that was the reason he came to the emergency department. After further questioning he also states that he has been having melena with black stools for the last 3 to 4 weeks and has a history of gastric ulcers last episode around 3 years ago. Original plan was for admission to our facility for evaluation of leg weakness/pain but given the presence of suspected upper GI bleed the patient will require transfer to another center for GI evaluation as they are not on-call at our facility. Allergies ciprofloxacin Allergy (Unknown, Verified 05/07/24 12:20) Hives/Rash Penicillins Adverse Reaction (Mild, Verified 05/07/24 12:20) Shortness of breath aspirin Adverse Reaction (Unknown, Verified 05/07/24 12:20) Shortness of breath flu vaccine Adverse Reaction (Uncoded 05/07/24 12:20) extreme sore throat, chronic cough Home Medications: Glimepiride [Amaryl*] 4 mg PO BID 09/26/20 Metformin HCl 1,000 mg PO BID 09/26/20 PARoxetine HCL [Paroxetine HCl] 40 mg PO DAILY 09/26/20 lisinopriL [Lisinopril] 20 mg PO BID 11/27/21 Atorvastatin Calcium 20 mg PO DAILY 01/23/24 Furosemide [Lasix] 40 mg PO DAILY 01/23/24 Linagliptin [Tradjenta] 5 mg PO DAILY 01/23/24 Smz./Tmp. [Bactrim Ds 800 MG/160 MG*] 1 each PO DAILY 7 Days #14 tab 01/28/24 hydroCHLOROthiazide [Hydrochlorothiazide*] 12.5 mg PO DAILY 02/03/24 Clopidogrel Bisulfate [Plavix] 75 mg PO DAILY #30 tab 02/04/24 Meclizine HCl 25 mg PO Q12HP PRN 05/06/24 Potassium Chloride [Klor-Con 10] 10 meq PO BID 05/06/24 - Past Medical/Surgical History Diabetic: Yes -: Hypertension -: Peripheral vascular disease -: Diabetes mellitus type 2 -: Morbid obesity -: Hyperlipidemia -: Depression -: Obstructive sleep apnea -: Cirrhosis - fatty liver -: Diabetic neuropathy -: Venous insufficiency -: CVA -: Gastric bypass -: Bilateral knee surgery -: "venous reflux" had small veins closed "years ago" -: left great toe shaved -: Left second toe amputation Psychosocial/ Personal History: The patient lives with his brother. He has no children. He is disabled. - Family History Father Medical History: Hypertension, Stroke Notes: Mother Medical History: Stroke - Social History Smoking Status: Unknown if ever smoked Alcohol use: No CD- Drugs: No Caffeine use: No Place of Residence: Home Review of Systems 10-point ROS is otherwise unremarkable Musculoskeletal: Leg Pain Neurological: Weakness (Left leg) Physical Examination General: Alert, In no apparent distress, Oriented x3 HEENT: Atraumatic, PERRLA, EOMI Neck: Supple, 2+ carotid pulse no bruit, No LAD Respiratory: Clear to auscultation bilaterally, Normal air movement Cardiovascular: Regular rate/rhythm, Normal S1 S2 Gastrointestinal: Normal bowel sounds, No tenderness Musculoskeletal: No tenderness Integumentary: No rashes Neurological: Normal speech, Normal affect Laboratory Data (last 24 hrs) 10/16/24 10/16/24 10/16/24 12:58 12:58 12:58 WBC 2.70 L Hgb 8.1 L Hct 25.2 L Plt Count 95 L PT 13.0 H INR 1.24 Sodium 134 L Potassium 4.2 BUN 15 Creatinine 0.87 Glucose 373 H Magnesium 1.8 Total Bilirubin 1.7 H AST 44 H ALT 36 Alkaline Phosphatase 137 H Conclusions/Impression: Given the ongoing suspected upper GI bleed with melena for the last 3 to 4 weeks patient would benefit with transfer to a tertiary center for GI evaluation. Transfer to be arranged by ED staff. Critical Care: No Time Spent Managing Pts care (In Minutes): 35
[2024-10-16 17:35] VITALS: O2SAT 97
[2024-10-16 17:36] VITALS: BP 124/70; TEMP 98.2
== END 2024-10-16 16:53 | disposition short-term general hospital (02) ==
LOC: ER 11:55
DX: K92.2 Gastrointestinal hemorrhage, unspecified (principal); M79.605 Pain in left leg; R53.1 Weakness; E11.40 Type 2 diabetes mellitus with diabetic neuropathy, unspecified; E66.01 Morbid (severe) obesity due to excess calories; I10 Essential (primary) hypertension; I73.9 Peripheral vascular disease, unspecified; E78.5 Hyperlipidemia, unspecified; G47.33 Obstructive sleep apnea (adult) (pediatric); I87.2 Venous insufficiency (chronic) (peripheral); K76.0 Fatty (change of) liver, not elsewhere classified; F32.A Depression, unspecified; Z86.73 Personal history of transient ischemic attack (TIA), and cerebral infarction without residual deficits; Z98.84 Bariatric surgery status; Z89.422 Acquired absence of other left toe(s); Z79.899 Other long term (current) drug therapy; Z88.0 Allergy status to penicillin; Z88.4 Allergy status to anesthetic agent; Z88.6 Allergy status to analgesic agent; Z88.8 Allergy status to other drugs, medicaments and biological substances; Z88.7 Allergy status to serum and vaccine; Z82.49 Family history of ischemic heart disease and other diseases of the circulatory system; Z82.3 Family history of stroke
CPT/HCPCS: 96361; 85025; 81001; 80048; 36415; 82140; 86900; 83735; 86850; 85610; 86901; 80076; 84484; 82728; 83540; 83880; 84466; 70450; 71045; 72170; 73562; 73552; 93970; 96360; 99285; J7030; J0696

== ENCOUNTER 2024-10-28 15:28 | Emergency (ER) | payer OTHER ==
[2024-10-28] MEDS ORDERED: HYDROMORPHONE HCL 1 MG/ML INJ ONE (16:03)
[2024-10-28] MEDS ORDERED: PREGABALIN 50 MG CAP ONE (16:05)
--- NOTE | 2024-10-28 17:19 | EDPHYS ---
Physician Documentation [facility] Name: Colby Tilley Jr Age: 58 yrs Sex: Male : 1965 Arrival Date: 10/28/2024 Time: 15:28 Bed 20 Private MD: ED Physician Simeon Lanza HPI: 10/28 16:30 This 58 yrs old Male presents to ER via Wheelchair with complaints of Leg pain. rn 16:30 The patient presents with pain. The complaints affect the left leg. Onset: The rn symptoms/episode began/occurred 8 week(s) ago. Modifying factors: The symptoms are alleviated by nothing. the symptoms are aggravated by movement. Severity of symptoms: At their worst the symptoms were moderate, in the emergency department the symptoms are unchanged. The patient has experienced similar episodes in the past. The patient has not recently seen a physician. Patient reports has been having at least 8 weeks of left leg pain, has been told in the past that his neuropathic pain following his stroke. Was undergoing physical therapy and stopped his physical therapy 6 weeks ago. Has been having increased left leg pain, has burning sensation and tingling from the hip down. No focal swelling. No skin changes. No redness or warmth. No fever or chills. States he has been having this for quite some time, used to take Lyrica and would help his pain but he had trouble driving on the medication so was taken off. Denies acute allergic reaction to Lyrica. No fall or trauma.. Historical: - Allergies: 15:50 Anesthesia; jb4 15:50 Aspirin; jb4 15:50 Lyrica; jb4 15:50 PENICILLINS; jb4 15:50 PROPOFOL (sensitive); jb4 - PMHx: 15:50 cirrhosis of liver; Diabetes - NIDDM; Hypertension; Left foot wound; leg swelling jb4 (Unknown); neuropathy (Unknown); PVD; stroke (PVD); - PSHx: 15:50 Gastric Bypass; jb4 - Immunization history:: Adult Immunizations up to date. - Infectious Disease History:: Denies. - Social history:: Smoking status: Patient denies any tobacco usage or history of. - Family history:: not pertinent. - Hospitalizations: : No recent hospitalization is reported. ROS: 16:30 Constitutional: Negative for fever, chills, and weight loss, Cardiovascular: Negative rn for chest pain, palpitations, and edema, Respiratory: Negative for shortness of breath, cough, wheezing, and pleuritic chest pain, Abdomen/GI: Negative for abdominal pain, nausea, vomiting, diarrhea, and constipation, MS/Extremity: Negative for injury and deformity, Skin: Negative for injury, rash, and discoloration, Neuro: Negative for headache, weakness, and seizure, Exam: 16:30 Constitutional: This is a well developed, well nourished patient who is awake, alert, rn and in no acute distress. Cardiovascular: Regular rate and rhythm. No pulse deficits. Respiratory: No increased work of breathing, no retractions or nasal flaring. MS/ Extremity: Pulses equal, no cyanosis. Neurovascular intact. Residual left-sided weakness noted. No focal tenderness or bony tenderness. No skin changes or evidence of cellulitis. No evidence of trauma. No knee effusion. Reports pain with brushing of skin and movement of entire leg. Vital Signs: 15:48 BP 150 / 92; Pulse 102; Resp 20; Temp 98.1(O); Pulse Ox 97% on R/A; Weight 195.04 kg; jb4 Height 6 ft. 8 in. ; Pain 10/10; 17:50 BP 148 / 88; Pulse 86; Resp 18; Pulse Ox 97% on R/A; db 15:48 Body Mass Index 47.24 (195.04 kg, 203.2 cm) jb4 15:48 Pain Scale: Adult jb4 MDM: 15:32 Medical Screening Exam initiated rn 16:30 Differential diagnosis: Neuropathy, chronic pain. Data reviewed: vital signs, nurses rn notes, old medical records, and as a result, I will discharge patient. 17:16 Counseling: I had a detailed discussion with the patient and/or guardian regarding the rn historical points, exam findings, and any diagnostic results supporting the discharge/admit diagnosis, the need for outpatient follow up, to return to the emergency department if symptoms worsen or persist or if there are any questions or concerns that arise at home. Response to treatment: the patient's symptoms have markedly improved after treatment, Ambulatory to bathroom without apparent distress. Special discussion: I discussed with the patient/guardian in detail that at this point there is no indication for admission to the hospital. It is understood, however, that if the symptoms persist or worsen the patient needs to return immediately for re-evaluation. Based on the history and exam findings, there is no indication for further emergent testing or inpatient evaluation. I discussed with the patient/guardian the need to see the [facility] for further evaluation of the symptoms. I discussed with the patient/guardian the need to see the primary care provider for further evaluation of the symptoms. ED course: Patient with months of ongoing neuropathic pain after his stroke. No acute trauma or injury to indicate need for emergent imaging at this time. No signs of infection. States used to take Lyrica and would get rid of his pain, recommend restarting Lyrica but to be more mindful of when he takes the medication, preferably taking it at night and not during the day as he had troubles with driving during the day with it in the past. Will start him on low-dose and ask him to follow-up with pain management and PCP for further management of pain medication.. 17:21 ED course: Patient states Lyrica has been the only medication to relieve his pain and rn denies true allergic reaction to the medication so we will restart him on lower dose Lyrica. Told him to just take it at night for now and to follow-up with his PCP for further recommendations.. Administered Medications: 16:05 Drug: HYDROmorphone IM 1 mg IM once Route: IM; Site: right deltoid; db 17:59 Follow up: Response: No adverse reaction db 16:05 Drug: Pregabalin PO 100 mg PO once Route: PO; db 17:30 Follow up: Response: No adverse reaction db Disposition Summary: 10/28/24 17:18 Discharge Ordered Notes: Location: Home rn Problem: chronic rn Symptoms: have improved rn Condition: Stable rn Diagnosis - Polyneuropathy, unspecified rn Followup: rn - With: Private Physician - When: As needed - Reason: Recheck today's complaints, Re-evaluation by your physician Discharge Instructions: - Discharge Summary Sheet rn - Peripheral Neuropathy rn Forms: - Medication Reconciliation Form rn - Antibiotic rn hospital - Prescription Opioid Use rn - Patient Portal Instructions rn - Leadership Thank You Letter rn Prescriptions: - Lyrica 50 mg Oral capsule - take 1 capsule ORAL route every day at bedtime As needed; 20 capsule; Refills: rn 0, Product Selection Permitted - acetaminophen-codeine 300-30 mg Oral tablet - take 1 tablet ORAL route every 8 hours As needed as needed for pain; 15 tablet; rn Refills: 0, Product Selection Permitted Signatures: Simeon Lanza MD MD rn Bryson, James, RN RN jb4 Vania Calvillo RN RN db
--- NOTE | 2024-10-28 17:19 | ER ---
Nurse's Notes [facility] Name: Colby Tilley Jr Age: 58 yrs Sex: Male : 1965 Arrival Date: 10/28/2024 Time: 15:28 Bed 20 Private MD: Diagnosis: Polyneuropathy, unspecified Presentation: 10/28 15:48 Chief complaint: Patient states: I am having pain in my left knee for the past 8 weeks. jb4 Coronavirus screen: At this time, the client does not indicate any symptoms associated with coronavirus-19. Ebola Screen: No symptoms or risks identified at this time. Initial Sepsis Screen: Does the patient meet any 2 criteria? HR > 90 bpm. Yes Does the patient have a suspected source of infection? No. Patient's initial sepsis screen is negative. Risk Assessment: Do you want to hurt yourself or someone else? Patient reports no desire to harm self or others. Onset of symptoms was September 02, 2024. Transition of care: patient was not received from another setting of care. 15:48 Method Of Arrival: Wheelchair jb4 15:48 Acuity: ZENAIDA 3 jb4 Historical: - Allergies: 15:50 Anesthesia; jb4 15:50 Aspirin; jb4 15:50 Lyrica; jb4 15:50 PENICILLINS; jb4 15:50 PROPOFOL (sensitive); jb4 - PMHx: 15:50 cirrhosis of liver; Diabetes - NIDDM; Hypertension; Left foot wound; leg swelling jb4 (Unknown); neuropathy (Unknown); PVD; stroke (PVD); - PSHx: 15:50 Gastric Bypass; jb4 - Immunization history:: Adult Immunizations up to date. - Infectious Disease History:: Denies. - Social history:: Smoking status: Patient denies any tobacco usage or history of. - Family history:: not pertinent. - Hospitalizations: : No recent hospitalization is reported. Screenin:19 [facility] ED Fall Risk Assessment (Adult) History of falling in the last 3 months, db including since admission No falls in past 3 months (0 pts) Confusion or Disorientation No (0 pts) Intoxicated or Sedated No (0 pts) Impaired Gait No (0 pts) Mobility Assist Device Used No (0 pt) Altered Elimination No (0 pt) Score/Fall Risk Level 0 - 2 = Low Risk Oriented to surroundings, Maintained a safe environment. Abuse screen: Denies threats or abuse. Denies injuries from another. Nutritional screening: No deficits noted. Tuberculosis screening: No symptoms or risk factors identified. Assessment: 16:19 Reassessment: Patient appears in no apparent distress at this time. Patient and/or db family updated on plan of care and expected duration. Pain level reassessed. Patient is alert, oriented x 3, equal unlabored respirations, skin warm/dry/pink. General: Appears in no apparent distress. comfortable, Behavior is calm, cooperative. Pain: Complains of pain in left leg. Neuro: Level of Consciousness is awake, alert, obeys commands, Oriented to person, place, time, situation. Respiratory: Airway is patent Respiratory effort is even, unlabored, Respiratory pattern is regular, symmetrical. 17:50 Reassessment: Patient appears in no apparent distress at this time. Patient and/or db family updated on plan of care and expected duration. Pain level reassessed. Patient is alert, oriented x 3, equal unlabored respirations, skin warm/dry/pink. Vital Signs: 15:48 BP 150 / 92; Pulse 102; Resp 20; Temp 98.1(O); Pulse Ox 97% on R/A; Weight 195.04 kg; jb4 Height 6 ft. 8 in. ; Pain 10/10; 17:50 BP 148 / 88; Pulse 86; Resp 18; Pulse Ox 97% on R/A; db 15:48 Body Mass Index 47.24 (195.04 kg, 203.2 cm) jb4 15:48 Pain Scale: Adult jb4 ED Course: 15:31 Patient arrived in ED. im 15:32 Simeon Lanza MD is Attending Physician. rn 15:50 Triage completed. jb4 15:50 Arm band placed on right wrist. jb4 15:57 Vania Calvillo, RN is Primary Nurse. db 16:19 Patient has correct armband on for positive identification. Bed in low position. Call db light in reach. Side rails up X 1. Pulse ox on. NIBP on. Pillow given. 17:50 Provided Education on: DISCHARGE AND FOLLOWUP. db 17:50 No provider procedures requiring assistance completed. Patient did not have IV access db during this emergency room visit. Administered Medications: 16:05 Drug: HYDROmorphone IM 1 mg IM once Route: IM; Site: right deltoid; db 17:59 Follow up: Response: No adverse reaction db 16:05 Drug: Pregabalin PO 100 mg PO once Route: PO; db 17:30 Follow up: Response: No adverse reaction db Medication: 16:19 VIS not applicable for this client. db Outcome: 17:18 Discharge ordered by . rn 17:50 Discharged to home ambulatory, db 17:50 Condition: stable 17:50 Discharge instructions given to patient, Instructed on discharge instructions, follow up and referral plans. Prescriptions given X 2, 17:51 Patient left the ED. cm10 Signatures: Simeon Lanza MD MD rn Bryson, James RN RN jb4 Vania Calvillo RN RN [place] Clarissa RN RN cm10
[2024-10-29 01:33] VITALS: BP 150/92; TEMP 98.1; O2SAT 97
== END 2024-10-28 17:51 | disposition home or self-care (01) ==
LOC: ER 15:28
DX: G62.9 Polyneuropathy, unspecified (principal)
CPT/HCPCS: 96372; 99284; J1171

== ENCOUNTER 2025-01-06 13:50 | Inpatient (IN) | payer OTHER, MEDICAID ==
[2025-01-06 15:21] LABS: Absolute Eosinophils 0.1 K/uL (0-0.5); Absolute Lymphocytes (CBC) 0.8 K/uL (0.7-4.9); Absolute Monocytes 0.3 K/uL (0.1-1.3); Absolute Neutrophil 1.6 K/uL (1.8-8.0); Basophils % 0.8 % (0-1.3); Eosinophils % 3.2 % (0-4.4); Hematocrit 20.1 % (39.6-49.0); Hemoglobin 6.2 g/dL (13.6-17.9); Lymphocytes % 28.5 % (15.3-44.8); MCH 21.7 pg (27.0-35.0); MCHC 31.1 g/dL (32.0-36.0); MCV 69.7 fL (80-100); MPV 8.2 fL (7.6-11.3); Monocytes % 11.3 % (3.3-12.3); Neutrophils % 56.2 % (41.7-73.7); Nucleated Red Blood Cells % 0.1 % (0-0); Platelets 89 thou/uL (152-406); RBC Red Blood Cell Count 2.88 M/uL (4.33-5.43); Red Cell Distribution Width 18.8 % (12.1-15.2)
[2025-01-06 15:42] LABS: Albumin 2.7 g/dL (3.4-5.0); Albumin/Globulin Ratio 0.6 (1.1-1.8); Anion Gap 9.7 mEq/L (5.0-15.0); Bilirubin Direct 0.6 mg/dL (0-0.2); Bilirubin Indirect, Calculated 1.3 mg/dL (0.2-0.8); Bilirubin Total 1.9 mg/dL (0.2-1.0); Globulin 4.5 g/dL (2.3-3.5); Magnesium 2.1 mg/dL (1.6-2.4); Potassium 3.7 mEq/L (3.5-5.1); Protein, Total 7.2 g/dL (6.4-8.2)
[2025-01-06 15:59] LABS: PT Prothrombin Time 12.8 SECONDS (10-13.0); Protime INR 1.13
--- NOTE | 2025-01-06 16:00 | RAD REPORT ---
EXAMINATION: ONE VIEW CHEST XR CLINICAL INDICATION: Male, 59 years old.,edema;SOB TECHNIQUE: Frontal chest projection is submitted. Examination is limited by patient positioning and t echnique. COMPARISON: 10/16/2024 FINDINGS: Lungs are somewhat hypoinflated. Perihilar streaky opacities and interstitial thickening with vascula r engorgement, progressive since prior exam.. No pneumothorax or sizable effusion. The heart is normal in size. Mediastinal contours are unremarkable. IMPRESSION: Progressive central findings, may reflect central congestion/CHF.
[2025-01-06] MEDS ORDERED: FUROSEMIDE 40 MG/4 ML VIAL ONE ×2 (16:27→18:18)
[2025-01-06 16:42] LABS: White Blood Cell Scan OK (OK)
[2025-01-06 16:43] LABS: Anisocytosis 1+; Blood Morphology Comment NOTED (NOT SEEN); Platelet Estimate DECR; Poikilocytosis 1+
[2025-01-06 17:19] LABS: Specific Gravity 1.014 (1.005-1.030); Sqamous Epithelial <5 /HPF (None Seen); Urine Bacteria <20 /HPF (<20); Urine Bilirubin NEGATIVE (Negative); Urine Blood Negative (Negative); Urine Clarity Extremely Turbid (Clear); Urine Color Yellow (Yellow); Urine Crystals Unidentified Few /HPF (None Seen); Urine Culture Reflex Order REFLEXED; Urine Glucose NEGATIVE (Negative); Urine Ketones NEGATIVE (Negative); Urine Microscopic Reflex YN ORDER UMIC; Urine Mucus Slight /HPF (None Seen); Urine Nitrite NEGATIVE (Negative); Urine Protein NEGATIVE (Negative); Urine Urobilinogen Normal (Normal); Urine WBC >50 /HPF (<5); Urine WBC Clump Occasional /HPF (None Seen); Urine pH 5.5 (5.0-7.0)
--- NOTE | 2025-01-06 17:34 | ER ---
Nurse's Notes [facility] Name: Colby Tilley Jr Age: 59 yrs Sex: Male : 1965 Arrival Date: 01/06/2025 Time: 13:50 Bed 14 Private MD: Diagnosis: Iron deficiency anemia, unspecified;Edema, unspecified;Dyspnea;UTI/ Urinary tract infection, site not specified Presentation: 01/06 14:08 Chief complaint: Patient states: Worsening BLE swelling and both legs leaking fluids ll1 for a few days. + cough, no fever EMS states: [facility]. Coronavirus screen: Client denies travel out of the [place] in the last 14 days. At this time, the client does not indicate any symptoms associated with coronavirus-19. Ebola Screen: Patient denies travel to an Ebola-affected area in the 21 days before illness onset. Initial Sepsis Screen: Does the patient meet any 2 criteria? No. Patient's initial sepsis screen is negative. Does the patient have a suspected source of infection? No. Patient's initial sepsis screen is negative. Risk Assessment: Do you want to hurt yourself or someone else? Patient reports no desire to harm self or others. Onset of symptoms was January 01, 2025. 14:08 Method Of Arrival: EMS: [facility] ll1 14:08 Acuity: ZENAIDA 3 ll1 Historical: - Allergies: 14:08 Anesthesia; ll1 14:08 Aspirin; ll1 14:08 Lyrica; ll1 14:08 PENICILLINS; ll1 14:08 PROPOFOL (sensitive); ll1 - PMHx: 14:08 cirrhosis of liver; Diabetes - NIDDM; Hypertension; Left foot wound; leg swelling ll1 (Unknown); neuropathy (Unknown); PVD; stroke (PVD); - PSHx: 14:08 Gastric Bypass; ll1 - Immunization history:: Adult Immunizations up to date. - Infectious Disease History:: Denies. - Social history:: Smoking status: Patient denies any tobacco usage or history of. Screenin:20 [facility] ED Fall Risk Assessment (Adult) History of falling in the last 3 months, db including since admission No falls in past 3 months (0 pts) Confusion or Disorientation No (0 pts) Intoxicated or Sedated No (0 pts) Impaired Gait Yes (1 pt) Mobility Assist Device Used No (0 pt) Altered Elimination No (0 pt) Score/Fall Risk Level 0 - 2 = Low Risk Oriented to surroundings, Maintained a safe environment. Abuse screen: Denies threats or abuse. Denies injuries from another. Nutritional screening: No deficits noted. Tuberculosis screening: No symptoms or risk factors identified. Assessment: 15:05 Reassessment: Patient appears in no apparent distress at this time. Patient and/or db family updated on plan of care and expected duration. Pain level reassessed. Patient is alert, oriented x 3, equal unlabored respirations, skin warm/dry/pink. General: Appears in no apparent distress. comfortable, Behavior is calm, cooperative. Pain: Complains of pain in left knee and right leg. Neuro: Level of Consciousness is awake, alert, obeys commands, Oriented to person, place, time, situation. Respiratory: Airway is patent Respiratory effort is even, unlabored, Respiratory pattern is regular, symmetrical. Musculoskeletal: Circulation, motion, and sensation intact. Capillary refill < 3 seconds, Range of motion: limited in left knee. 16:45 Reassessment: PT REFUSED TO TAKE LASIX NOTIFIED PROVIDER. db 17:00 Reassessment: Patient appears in no apparent distress at this time. Patient and/or db family updated on plan of care and expected duration. Pain level reassessed. Patient is alert, oriented x 3, equal unlabored respirations, skin warm/dry/pink. ASSISTED IN BED. 18:10 Reassessment: CONSENT FOR BLOOD SIGNED AND ON CHART. db 18:41 Reassessment: PT NOT "READY TO TAKE LASIX YET. db Vital Signs: 15:05 BP 127 / 69; Pulse 80; Resp 18; Pulse Ox 98% on R/A; db 17:36 BP 133 / 76; Pulse 79; Resp 18; Pulse Ox 99% on R/A; db 17:52 BP 132 / 80; Pulse 80; Resp 18; Pulse Ox 99% ; db 18:30 BP 142 / 82; Pulse 83; Resp 18; Pulse Ox 100% ; db ED Course: 14:01 Patient arrived in ED. ll1 14:02 Moreno Solo PA is PHCP. cp 14:02 Moreno Agee MD is Attending Physician. cp 14:08 Arm band placed on Patient placed in an exam room, on a stretcher. ll1 14:10 Triage completed. ll1 14:34 Vania Calvillo, RN is Primary Nurse. db 14:48 XRAY Chest (1 view) In Process Unspecified. EDMS 15:05 Initial lab(s) drawn, by me, sent to lab. Inserted saline lock: 20 gauge in left wrist, db using aseptic technique. Blood collected. Flushed with 10 mL NS. 15:21 Patient taken to ultrasound. via wheelchair. db 15:21 Patient has correct armband on for positive identification. Bed in low position. Call db light in reach. Side rails up X 1. Pulse ox on. NIBP on. 16:32 US Extremity Venous W Compression Thomas In Process Unspecified. EDMS 16:32 US Lower Extremity Arterial Bilateral In Process Unspecified. EDMS 17:00 Urine collected: clean catch specimen. db 17:32 Nona Harris MD is Hospitalizing Provider. cp 19:58 Provided Education on: ADMISSION. dd2 19:58 No provider procedures requiring assistance completed. Patient admitted, IV remains in dd2 place. Administered Medications: 17:21 Not Given (Patient Refused): [id number] mg IVP once; give over 2 minutes db 18:39 Drug: Ciprofloxacin PO 500 mg PO once Route: PO; db 18:50 Drug: Furosemide IVP 80 mg IVP once; give over 2 minutes Route: IVP; Site: left forearm;db Medication: 15:21 VIS not applicable for this client. db Outcome: 17:34 Decision to Hospitalize by Provider. cp 19:58 Admitted to Med/surg accompanied by tech, room 203, with chart, dd2 19:58 Condition: stable 19:58 Instructed on the need for admit, 19:59 Patient left the ED. dd2 Signatures: Dispatcher [employer] EDPR Moreno Solo PA PA cp Lewis, Lynsay RN RN ll1 Vania Calvillo, RN RN db ANIL RAMON RN RN dd2
--- NOTE | 2025-01-06 17:34 | EDPHYS ---
Physician Documentation [facility] Name: Colby Tilley Jr Age: 59 yrs Sex: Male : 1965 Arrival Date: 01/06/2025 Time: 13:50 Bed 14 Private MD: ED Physician Moreno Agee HPI: 01/06 14:15 This 59 yrs old Male presents to ER via EMS with complaints of Leg Swelling. cp 14:15 The patient presents with pain, swelling, tenderness. The complaints affect the right cp leg and left leg. Context: the patient can fully bear weight, the patient is able to ambulate, with moderate difficulty, left worse than right. Onset: The symptoms/episode began/occurred gradually, and became worse today. 14:15 Associated signs and symptoms: Pertinent positives: calf tenderness, shortness of cp breath, Pertinent negatives fever, vomiting. Historical: - Allergies: 14:08 Anesthesia; ll1 14:08 Aspirin; ll1 14:08 Lyrica; ll1 14:08 PENICILLINS; ll1 14:08 PROPOFOL (sensitive); ll1 - PMHx: 14:08 cirrhosis of liver; Diabetes - NIDDM; Hypertension; Left foot wound; leg swelling ll1 (Unknown); neuropathy (Unknown); PVD; stroke (PVD); - PSHx: 14:08 Gastric Bypass; ll1 - Immunization history:: Adult Immunizations up to date. - Infectious Disease History:: Denies. - Social history:: Smoking status: Patient denies any tobacco usage or history of. ROS: 14:20 Constitutional: Negative for body aches, chills, fever, poor PO intake, cp 14:20 Cardiovascular: Positive for edema, Negative for chest pain, palpitations, cp 14:20 Respiratory: Positive for cough, shortness of breath, 14:20 Eyes: Negative for injury, pain, redness, and discharge, cp 14:20 ENT: Negative for drainage from ear(s), ear pain, sore throat, difficulty swallowing, difficulty handling secretions, 14:20 Neuro: Positive for weakness, Negative for altered mental status, headache, 14:20 All other systems are negative, Exam: 14:25 Constitutional: The patient appears in no acute distress, alert, awake, cp non-diaphoretic, non-toxic, well developed, well nourished, obese, uncomfortable, 14:25 Head/Face: Normocephalic, atraumatic. cp 14:25 Eyes: Periorbital structures: appear normal, Conjunctiva: normal, no exudate, no injection, Sclera: no appreciated abnormality, Lids and lashes: appear normal, bilaterally, 14:25 ENT: External ear(s): are unremarkable, Nose: is normal, Mouth: Lips: moist, Oral mucosa: moist, Posterior pharynx: Airway: no evidence of obstruction, patent, 14:25 Chest/axilla: Inspection: normal, 14:25 Cardiovascular: Rate: normal, Rhythm: regular, Edema: ankle edema, that is marked, JVD: is not appreciated, 14:25 Respiratory: the patient does not display signs of respiratory distress, Respirations: labored breathing, is not present, Breath sounds: bronchial sounds, that are mild, are heard diffusely, decreased breath sounds, are not appreciated, stridor, is not appreciated, 14:25 Abdomen/GI: Inspection: obese Palpation: abdomen is soft and non-tender, in all quadrants, 14:25 Back: pain, is absent, ROM is normal, 14:25 Neuro: Orientation: to person, place \T\ time. Mentation: is normal, Motor: moves all fours, 15:14 ECG was reviewed by the Attending Physician. Vital Signs: 15:05 BP 127 / 69; Pulse 80; Resp 18; Pulse Ox 98% on R/A; db 17:36 BP 133 / 76; Pulse 79; Resp 18; Pulse Ox 99% on R/A; db 17:52 BP 132 / 80; Pulse 80; Resp 18; Pulse Ox 99% ; db 18:30 BP 142 / 82; Pulse 83; Resp 18; Pulse Ox 100% ; db MDM: 14:02 Medical Screening Exam initiated cp 15:00 Differential diagnosis: dvt, cellulitis, anemia, electrolyte abnormality, pulmonary cp edema. 17:10 Data reviewed: vital signs, nurses notes, lab test result(s), EKG, radiologic studies, cp plain films, and as a result, I will admit patient. 17:10 I considered the following discharge prescriptions or medication management in the emergency department Medications were administered in the Emergency Department. See MAR. Independent interpretation of the following test(s) in the Emergency Department EKG: See my EKG interpretation above. Care significantly affected by the following chronic conditions: Diabetes, Hypertension, Obesity, Liver Disease. Counseling: I had a detailed discussion with the patient and/or guardian regarding the historical points, exam findings, and any diagnostic results supporting the discharge/admit diagnosis, lab results, radiology results, the need for further work-up and treatment in the hospital. 17:10 Management of patient was discussed with the following: Hospitalist: DR Harris will cp admit after discussion. 17:10 Test considered but Not performed: CT: chest but unable due to weight of patient. cp 01/06 14:13 Order name: Basic Metabolic Panel; Complete Time: 15:49 cp 01/06 15:49 Interpretation: Normal except: CL 108; CRE 0.65; CA 8.3. cp 01/06 14:13 Order name: CBC with Diff; Complete Time: 16:56 cp 01/06 15:50 Interpretation: Normal except: WBC 2.90; RBC 2.88; HGB 6.2; HCT 20.1; MCV 69.7; MCH cp 21.7; MCHC 31.1; PLT 89; RDW 18.8; NEUT A 1.6. 01/06 14:13 Order name: LFT's; Complete Time: 15:49 cp 01/06 15:50 Interpretation: Normal except: AST 46; ALK 118; BILIT 1.9; BILID 0.6; IBILI, CALC 1.3; cp ALB 2.7; GLOB 4.5; A/G 0.6. 01/06 14:13 Order name: Magnesium; Complete Time: 15:49 cp 01/06 14:13 Order name: PT-INR; Complete Time: 16:10 cp 01/06 14:13 Order name: Troponin HS; Complete Time: 15:49 cp 01/06 15:50 Interpretation: Troponin HS 11.0; Reviewed. cp 01/06 15:49 Order name: BNP cp 01/06 15:50 Order name: Ferritin cp 01/06 15:50 Order name: TIBC cp 01/06 16:12 Order name: Urinalysis w/ reflexes; Complete Time: 17:49 cp 01/06 17:49 Interpretation: Normal except: [facility] Extremely Turbid; UESTR 500; UWBC >50; URBC 11-20; cp UWBC Clump Occasional. 01/06 16:42 Order name: CBC Smear Scan; Complete Time: 16:56 EDMS 01/06 17:38 Order name: Type And Screen cp 01/06 17:51 Order name: Urine Culture EDMS 01/06 17:56 Order name: Thyroid Stimulating Hormone EDMS 01/06 17:56 Order name: Urinalysis w/ reflexes EDMS 01/06 17:56 Order name: Basic Metabolic Panel EDMS 01/06 17:56 Order name: Basic Metabolic Panel EDMS 01/06 17:56 Order name: Basic Metabolic Panel EDMS 01/06 17:56 Order name: Basic Metabolic Panel EDMS 01/06 17:56 Order name: Basic Metabolic Panel EDMS 01/06 17:56 Order name: Basic Metabolic Panel EDMS 01/06 17:56 Order name: Basic Metabolic Panel EDMS 01/06 17:56 Order name: Basic Metabolic Panel EDMS 01/06 17:56 Order name: CBC with Automated Diff EDMS 01/06 17:57 Order name: CBC with Automated Diff EDMS 01/06 17:57 Order name: CBC with Automated Diff EDMS 01/06 17:57 Order name: CBC with Automated Diff EDMS 01/06 17:57 Order name: CBC with Automated Diff EDMS 01/06 17:57 Order name: CBC with Automated Diff EDMS 01/06 17:57 Order name: CBC with Automated Diff EDMS 01/06 17:57 Order name: CBC with Automated Diff EDMS 10 17:57 Order name: Magnesium EDMS 01/06 17:57 Order name: Magnesium EDMS 01/06 17:57 Order name: Magnesium EDMS 01/06 17:57 Order name: Magnesium EDMS 01/06 17:57 Order name: Magnesium EDMS 01/06 17:57 Order name: Magnesium EDMS 01/06 17:57 Order name: Magnesium EDMS 01/06 17:57 Order name: Magnesium EDMS 01/06 17:59 Order name: Magnesium EDMS 01/06 17:59 Order name: Magnesium EDMS 01/06 17:59 Order name: Magnesium EDMS 01/06 17:59 Order name: Magnesium EDMS 01/06 17:59 Order name: Magnesium EDMS 01/06 17:59 Order name: Magnesium EDMS 01/06 14:13 Order name: XRAY Chest (1 view); Complete Time: 16:10 cp 01/06 14:13 Order name: Extremity Venous W Compression Thomas cp 01/06 14:13 Order name: Lower Extremity Arterial Bilateral cp 01/06 18:06 Order name: Occupational Therapy Consult [facility] 01/06 18:06 Order name: Physical Therapy Consult [facility] 01/06 14:13 Order name: Cardiac monitoring; Complete Time: 15:16 cp 01/06 14:13 Order name: EKG - Nurse/Tech; Complete Time: 15:16 cp 01/06 14:13 Order name: IV Saline Lock; Complete Time: 15:16 cp 01/06 14:13 Order name: Labs collected and sent; Complete Time: 15:16 cp 01/06 14:13 Order name: O2 Per Protocol; Complete Time: 15:16 cp 01/06 14:13 Order name: O2 Sat Monitoring; Complete Time: 15:16 cp EC:14 Rate is 81 beats/min. Rhythm is regular. NE interval is prolonged at 208 msec. QRS cp interval is normal. QT interval is normal. Interpreted by me. Reviewed by me. Administered Medications: 17:21 Not Given (Patient Refused): [id number] mg IVP once; give over 2 minutes db 18:39 Drug: Ciprofloxacin PO 500 mg PO once Route: PO; db 18:50 Drug: Furosemide IVP 80 mg IVP once; give over 2 minutes Route: IVP; Site: left forearm;db Disposition Summary: 01/06/25 17:34 Hospitalization Ordered Notes: Hospitalization Status: Inpatient Admission cp Provider: Nona Harris cp [facility] cp Condition: Fair cp Problem: new cp Symptoms: are unchanged cp Bed/Room Type: Standard cp Room Assignment: 203(01/06/25 18:13) bc6 Diagnosis - Iron deficiency anemia, unspecified cp - Edema, unspecified cp - Dyspnea cp - UTI/ Urinary tract infection, site not specified cp Forms: - Medication Reconciliation Form cp - SBAR form cp - Leadership Thank You Letter cp Addendum: 01/15/2025 08:04 Co-signature as Attending Physician, Moreno Agee MD I agree with the assessment and c hitchcock plan of care. Signatures: Dispatcher [employer] Moreno Mcginnis MD MD cha Page, Corey, PA PA cp Lewis, Lynsay RN RN ll1 Vania Calvillo RN RN Ruby Blair bc6 Corrections: (The following items were deleted from the chart) 01/06 14:13 14:13 BASIC METABOLIC PANEL+C.LAB.BRZ ordered. EDMS EDMS 14:13 14:13 CBC+H.LAB.BRZ ordered. EDMS EDMS 14:13 14:13 HEPATIC FUNCTION+C.LAB.BRZ ordered. EDMS EDMS 14:13 14:13 MAGNESIUM+C.LAB.BRZ ordered. EDMS EDMS 14:13 14:13 PROTIME (+INR)+COAG.LAB.BRZ ordered. EDMS EDMS 14:13 14:13 Troponin High Sensitivity+C.LAB.BRZ ordered. EDMS EDMS 14:13 14:13 Chest Single View+RAD.RAD.BRZ ordered. EDMS EDMS 14:14 14:14 Extrem Venous W Compression Thomas+US.RAD.BRZ ordered. EDMS EDMS 14:14 14:14 Lower Extremity Arterial Bilat+US.RAD.BRZ ordered. EDMS EDMS 15:49 15:49 PROBNP+C.LAB.BRZ ordered. EDMS EDMS 15:56 14:13 D-DIMER+COAG.LAB.BRZ ordered. EDMS EDMS 18:13 17:34 cp bc6
[2025-01-06] MEDS ORDERED: SODIUM CHLORIDE 0.9% 10ML INJ IV PRN (17:58)
[2025-01-06] MEDS ORDERED: GLUCAGON 1 MG/VIAL IM PRN (18:00)
[2025-01-06] MEDS ORDERED: D10W 125 ML IV PRN (18:00)
[2025-01-06] MEDS ORDERED: CIPROFLOXACIN HCL 500 MG TAB ONE (18:17)
--- NOTE | 2025-01-06 18:22 | P.HP ---
Certification for Inpatient Patient admitted to: Inpatient With expected LOS: >2 Midnights Patient will require the following post-hospital care: Home Health Services Practitioner: I am a practitioner with admitting privileges, knowledge of patient current condition, hospital course, and medical plan of care. Services: Services provided to patient in accordance with Admission requirements found in Title 42 Section 412.3 of the Code of Federal Regulations Patient History Date of Service: 01/06/25 Reason for admission: Exertional dyspnea, bilateral lower extremity edema, generalized weakness History of Present Illness: 59-year-old male, morbidly obese, history of type 2 diabetes, history hypertension, anxiety/depression, been admitted for generalized weakness, exertional dyspnea and worsening bilateral lower extremity edema. Per patient, today he tried to use the commode and found it extremity felt getting up from the commode and eventually was able to do so and again this morning tried to use the bathroom to shower and was unable to do so due to generalized weakness, bilateral lower extremity edema and left knee pain from chronic osteoarthritis. Due to overall weakness, patient then called EMS and was brought to the emergency room. In the ER, noted to have 4+ edema in bilateral lower extremities extending to the bilateral thighs. Labs showed pancytopenia with low hemoglobin of 6.2 and ferritin of 6. Chest x-ray consistent with CHF. Allergies ciprofloxacin Allergy (Unknown, Verified 05/07/24 12:20) Hives/Rash Penicillins Adverse Reaction (Mild, Verified 05/07/24 12:20) Shortness of breath aspirin Adverse Reaction (Unknown, Verified 05/07/24 12:20) Shortness of breath flu vaccine Adverse Reaction (Uncoded 05/07/24 12:20) extreme sore throat, chronic cough Home Medications: Glimepiride [Amaryl*] 4 mg PO BID 09/26/20 Metformin HCl 1,000 mg PO BID 09/26/20 PARoxetine HCL [Paroxetine HCl] 40 mg PO DAILY 09/26/20 lisinopriL [Lisinopril] 20 mg PO BID 11/27/21 Atorvastatin Calcium 20 mg PO DAILY 01/23/24 Furosemide [Lasix] 40 mg PO DAILY 01/23/24 Linagliptin [Tradjenta] 5 mg PO DAILY 01/23/24 Smz./Tmp. [Bactrim Ds 800 MG/160 MG*] 1 each PO DAILY 7 Days #14 tab 01/28/24 hydroCHLOROthiazide [Hydrochlorothiazide*] 12.5 mg PO DAILY 02/03/24 Clopidogrel Bisulfate [Plavix] 75 mg PO DAILY #30 tab 02/04/24 Meclizine HCl 25 mg PO Q12HP PRN 05/06/24 Potassium Chloride [Klor-Con 10] 10 meq PO BID 05/06/24 - Past Medical/Surgical History Diabetic: Yes -: Hypertension -: Peripheral vascular disease -: Diabetes mellitus type 2 -: Morbid obesity -: Hyperlipidemia -: Depression -: Obstructive sleep apnea -: Cirrhosis - fatty liver -: Diabetic neuropathy -: Venous insufficiency -: CVA -: Gastric bypass -: Bilateral knee surgery -: "venous reflux" had small veins closed "years ago" -: left great toe shaved -: Left second toe amputation Psychosocial/ Personal History: The patient lives with his brother. He has no children. He is disabled. - Family History Father -: Hypertension, Stroke Notes: Mother -: Stroke - Social History Alcohol use: No CD- Drugs: No Caffeine use: No Review of Systems General: Weakness Respiratory: Shortness of Breath, SOB with Excertion Cardiovascular: Unremarkable Gastrointestinal: Unremarkable Musculoskeletal: Leg Pain, Pedal edema Neurological: Weakness Physical Examination - Physical Exam General: Alert, Oriented x3 HEENT: Atraumatic Respiratory: Diminished Cardiovascular: Regular rate/rhythm Gastrointestinal: Normal bowel sounds Musculoskeletal: Swelling (4+ edema bilateral lower extremities) Neurological: Normal gait, Normal speech Lymphatics: No axilla or inguinal lymphadenopathy - Studies Laboratory Data (last 24 hrs) 01/06/25 01/06/25 01/06/25 15:00 15:00 15:00 WBC 2.90 L Hgb 6.2 L Hct 20.1 L Plt Count 89 L PT 12.8 INR 1.13 Sodium 138 Potassium 3.7 BUN 10 Creatinine 0.65 L Glucose 103 Magnesium 2.1 Total Bilirubin 1.9 H AST 46 H ALT 30 Alkaline Phosphatase 118 H Assessment and Plan - Plan 1. Bilateral lower extremity edema, exertional dyspnea secondary to acute diastolic CHF exacerbation - Clinically has 4+ edema bilateral lower extremities extending all the way to the thighs - Chest x-ray positive for CHF - Initiated IV Lasix 80 mg IV twice daily - Strict I's and O's - 2D echo from a year ago showed LVEF of 65%, will not repeat - Cardiology consulted 2. Chronic blood loss anemia likely secondary to occult GI bleed -Denies use of NSAIDs, alcohol abuse, or dark stools -MCV of 62, hemoglobin 6.2 with ferritin of 6 -2 units of blood transfusion ordered - IV iron ordered -On IV Protonix - GI consulted for EGD 3. Pancytopenia secondary to fatty liver disease 4. Type 2 diabetes - On sliding scale insulin 5. History of anxiety/depression - Continue paroxetine at home dose 6. Morbid obesity 7. History of left knee osteoarthritis - Per patient, received left knee injection a few days ago at outpatient orthopedic doctors office - on prn morphine for pain control 8. DVT prophylaxis - SCDs - Advance Directives Does patient have a Living Will: No Does patient have a Durable POA for Healthcare: No - Code Status/Comfort Care Code Status Assessed: Yes Code Status: Full Code
--- NOTE | 2025-01-06 19:04 | RAD REPORT ---
EXAMINATION: US Extrem Venous W Compress Thomas CLINICAL INDICATION: [facility] MAIN Pain;Swelling Bed Name: 14 N TECHNIQUE: Complete bilateral duplex sonography of the BILATERAL lower extremity veins was performed. The examination included compression for vein patency, color Doppler imaging and flow augmentation in response to distal compression of the distal external iliac, common femoral, femoral, popliteal, t ibial, and great and small saphenous veins. COMPARISON: No prior exam. FINDINGS: Duplex sonography testing of the veins of the BILATERAL lower extremity was performed. Color flow marlen ging shows all veins to be compressible with [id number] color filling. Pulsatile and phasic flow is present within all lower extremity deep and superficial veins examined. IMPRESSION: There is no deep vein or superficial vein thrombosis.
--- NOTE | 2025-01-06 19:04 | RAD REPORT ---
EXAMINATION: US Lower Extremity Arterial Bilat CLINICAL INDICATION: Male, 59 years old. [facility] MAIN PAIN Bed Name: 14 TECHNIQUE: Arterial duplex ultrasound of the bilateral lower extremities, with real-time, duplex, and spectral flow Doppler evaluation. COMPARISON: 09/26/2020 FINDINGS: Grayscale: Grayscale: Mild plaque. Right lower extremity: The common femoral through popliteal arteries are patent, with triphasic waveforms. Monophasic wavefo luis along the posterior tibial and dorsalis pedis arteries. Left lower extremity: The common femoral through posterior tibial arteries are patent, with triphasic waveforms. Monophasic waveforms along the dorsalis pedis artery. IMPRESSION: Bilateral mild distal peripheral vascular disease, mildly worsened since prior exam.
[2025-01-06] MEDS: DOCUSATE NA/SENNA CONC 1 TAB PO SCH (21:00)
[2025-01-06] MEDS: INSULIN REGULAR (HUMAN) 100 UNIT/ML SQ SCH (21:00)
[2025-01-06] MEDS: PANTOPRAZOLE 40 MG INJ IVP SCH (22:43)
[2025-01-07 00:10] LABS: Thyroid Stimulating Hormone 1.68 uIU/mL (0.358-3.740)
[2025-01-07] MEDS: NA CHLORIDE 0.9% 1,000 ML ONE ×2 (00:13→14:28)
[2025-01-07] MEDS: DIPHENHYDRAMINE 50 MG/ML VIAL IV ONE (00:19)
[2025-01-07] MEDS: ACETAMINOPHEN 325 MG TABLET PO PRN (00:20)
[2025-01-07 02:43] LABS: Specific Gravity 1.008 (1.005-1.030); Sqamous Epithelial <5 /HPF (None Seen); Urine Bacteria None Seen /HPF (<20); Urine Bilirubin NEGATIVE (Negative); Urine Blood Negative (Negative); Urine Clarity Turbid (Clear); Urine Color Light-Yellow (Yellow); Urine Culture Reflex Order NOT NEEDED; Urine Glucose NEGATIVE (Negative); Urine Ketones NEGATIVE (Negative); Urine Microscopic Reflex YN ORDER UMIC; Urine Nitrite NEGATIVE (Negative); Urine Protein NEGATIVE (Negative); Urine RBC <5 /HPF (None Seen); Urine Urobilinogen Normal (Normal); Urine WBC <5 /HPF (<5)
[2025-01-07] MEDS: HYDROMORPHONE HCL 1 MG/ML INJ IV ONE (03:11)
[2025-01-07 07:17] LABS: Absolute Eosinophils 0.2 K/uL (0-0.5); Absolute Lymphocytes (CBC) 0.7 K/uL (0.7-4.9); Absolute Monocytes 0.4 K/uL (0.1-1.3); Absolute Neutrophil 1.7 K/uL (1.8-8.0); Basophils % 0.9 % (0-1.3); Eosinophils % 5.4 % (0-4.4); Hematocrit 23.7 % (39.6-49.0); Hemoglobin 7.3 g/dL (13.6-17.9); MCH 22.2 pg (27.0-35.0); MCHC 30.9 g/dL (32.0-36.0); MCV 71.8 fL (80-100); MPV 8.3 fL (7.6-11.3); Monocytes % 13.5 % (3.3-12.3); Neutrophils % 56.2 % (41.7-73.7); Platelets 79 thou/uL (152-406); Red Cell Distribution Width 19.2 % (12.1-15.2)
[2025-01-07] MEDS: FLU (Fluarix Triv) TS24-25(6MOS UP)/PF 45 MCG/0.5 ML Syringe IM ONE (07:30)
[2025-01-07 07:33] LABS: Anion Gap 11.9 mEq/L (5.0-15.0); Magnesium 2.2 mg/dL (1.6-2.4); Potassium 3.9 mEq/L (3.5-5.1)
[2025-01-07] MEDS: PARoxetine HCL 10 MG TAB PO SCH (09:00)
[2025-01-07] MEDS ORDERED: HOME MED 1 EA UNK (Paroxetine Hcl [Paroxetine Hcl] 20 MG Tablet) PO SCH (09:00)
[2025-01-07] MEDS: POTASSIUM CL SA 10 MEQ TAB PO SCH (09:00)
[2025-01-07] MEDS: SOD FERRIC GLUC COMPLX/SUCROSE 125 MG in NA CHLORIDE 0.9% 100 ML IV SCH (09:30)
[2025-01-07] MEDS: MORPHINE 2 MG/ML SYR IV PRN (10:12)
[2025-01-07] MEDS: ONDANSETRON 4 MG/2 ML VIAL IV PRN (12:13)
--- NOTE | 2025-01-07 12:33 | P.PN ---
Subjective Date of Service: 01/07/25 Chief Complaint: Exertional dyspnea, bilateral lower extremity edema, generalized weakness Patient with complaints of left knee pain, requesting for pain meds Review of Systems General: Unremarkable Eyes: Unremarkable ENT: Unremarkable Respiratory: Unremarkable Cardiovascular: Unremarkable Gastrointestinal: Unremarkable Genitourinary: Unremarkable Musculoskeletal: Leg Pain Neurological: Unremarkable Physical Examination - Vital Signs Temperature: 98.4 F Blood Pressure: 138/65 Pulse: 87 Respirations: 20 Pulse Ox (%): 96 - Physical Exam General: Alert, Oriented x3 HEENT: Atraumatic, Normocephalic, PERRLA Respiratory: Clear to auscultation bilaterally Cardiovascular: No edema Gastrointestinal: Normal bowel sounds Musculoskeletal: Tenderness Neurological: Normal gait, Normal strength at 5/5 x4 extr, Normal affect - Studies Laboratory Data (last 24 hrs) 01/06/25 01/06/25 01/06/25 15:00 15:00 15:00 WBC 2.90 L Hgb 6.2 L Hct 20.1 L Plt Count 89 L PT 12.8 INR 1.13 Sodium 138 Potassium 3.7 BUN 10 Creatinine 0.65 L Glucose 103 Magnesium 2.1 Total Bilirubin 1.9 H AST 46 H ALT 30 Alkaline Phosphatase 118 H Assessment And Plan - Plan 1. Bilateral lower extremity edema, exertional dyspnea secondary to acute diastolic CHF exacerbation - Clinically has 4+ edema bilateral lower extremities extending all the way to the thighs - Chest x-ray positive for CHF - Initiated IV Lasix 80 mg IV twice daily - Strict I's and O's - 2D echo from a year ago showed LVEF of 65%, will not repeat - Cardiology consulted 2. Chronic blood loss anemia likely secondary to occult GI bleed -Denies use of NSAIDs, alcohol abuse, or dark stools -MCV of 62, hemoglobin 6.2 with ferritin of 6 -2 units of blood transfusion ordered - IV iron ordered -On IV Protonix - GI consulted for EGD: Plan for EGD today 3. Pancytopenia secondary to fatty liver disease 4. Type 2 diabetes - On sliding scale insulin 5. History of anxiety/depression - Continue paroxetine at home dose 6. Morbid obesity 7. History of left knee osteoarthritis - Per patient, received left knee injection a few days ago at outpatient orthopedic doctors office - on prn morphine for pain control 8. DVT prophylaxis - SCDs
--- NOTE | 2025-01-07 12:52 | P.CNS ---
Date of Consult: 01/07/25 Chief Complaint: Exertional dyspnea, bilateral lower extremity edema, generalized weakness History of Present Illness: Patient with PMH of HTN, DM, Morbid obesity presented with worsening lower extremities edema and worsening BUTT, patient denies chest pain, no palpitations, no syncope. Allergies ciprofloxacin Allergy (Unknown, Verified 05/07/24 12:20) Hives/Rash Penicillins Adverse Reaction (Mild, Verified 05/07/24 12:20) Shortness of breath aspirin Adverse Reaction (Unknown, Verified 05/07/24 12:20) Shortness of breath flu vaccine Adverse Reaction (Uncoded 05/07/24 12:20) extreme sore throat, chronic cough Home medications list reviewed: Yes Home Medications: RX: Glimepiride [Amaryl*] 4 mg PO BID 09/26/20 RX: Metformin HCl 1,000 mg PO BID 09/26/20 RX: PARoxetine HCL [Paroxetine HCl] 40 mg PO DAILY 09/26/20 RX: lisinopriL [Lisinopril] 20 mg PO BID 11/27/21 RX: Atorvastatin Calcium 20 mg PO DAILY 01/23/24 RX: Furosemide [Lasix] 40 mg PO DAILY 01/23/24 RX: Linagliptin [Tradjenta] 5 mg PO DAILY 01/23/24 RX: Smz./Tmp. [Bactrim Ds 800 MG/160 MG*] 1 each PO DAILY 7 Days #14 tab 01/28/24 RX: hydroCHLOROthiazide [Hydrochlorothiazide*] 12.5 mg PO DAILY 02/03/24 Clopidogrel Bisulfate [Plavix] 75 mg PO DAILY #30 tab 02/04/24 Potassium Chloride [Klor-Con 10] 10 meq PO BID 05/06/24 RX: Meclizine HCl 25 mg PO Q12HP PRN 05/06/24 - Past Medical/Surgical History Diabetic: Yes -: Hypertension -: Peripheral vascular disease -: Diabetes mellitus type 2 -: Morbid obesity -: Hyperlipidemia -: Depression -: Obstructive sleep apnea -: Cirrhosis - fatty liver -: Diabetic neuropathy -: Venous insufficiency -: CVA -: Gastric bypass -: Bilateral knee surgery -: "venous reflux" had small veins closed "years ago" -: left great toe shaved -: Left second toe amputation Psychosocial/ Personal History: The patient lives with his brother. He has no children. He is disabled. - Family History Father Medical History: Hypertension, Stroke Notes: Mother Medical History: Stroke - Social History Smoking Status: Unknown if ever smoked Alcohol use: No CD- Drugs: No Caffeine use: No Place of Residence: Home Review of Systems 10-point ROS is otherwise unremarkable Physical Examination Temp Pulse Resp BP Pulse Ox 98.4 F 87 20 138/65 96 01/07/25 12:33 01/07/25 12:33 01/07/25 12:33 01/07/25 12:33 01/07/25 12:33 General: Alert, In no apparent distress HEENT: Atraumatic, PERRLA, Mucous membr. moist/pink, EOMI, Sclerae nonicteric Neck: Supple, 2+ carotid pulse no bruit, No LAD, Without JVD or thyroid abnormality Respiratory: Clear to auscultation bilaterally, Normal air movement Cardiovascular: Regular rate/rhythm, Normal S1 S2, Edema Gastrointestinal: Normal bowel sounds, No tenderness Musculoskeletal: No tenderness Integumentary: No rashes Neurological: Normal gait, Normal speech, Normal tone, Normal affect Lymphatics: No axilla or inguinal lymphadenopathy Laboratory Data (last 24 hrs) 01/06/25 01/06/25 01/06/25 15:00 15:00 15:00 WBC 2.90 L Hgb 6.2 L Hct 20.1 L Plt Count 89 L PT 12.8 INR 1.13 Sodium 138 Potassium 3.7 BUN 10 Creatinine 0.65 L Glucose 103 Magnesium 2.1 Total Bilirubin 1.9 H AST 46 H ALT 30 Alkaline Phosphatase 118 H - Problems (1) Swelling of lower extremity Current Visit: Yes Status: Acute Plan: Patient is morbidly obese with significant bilateral lower extremities edema, most likely diastolic heart failure Get echo Continue lasix 80 mg IV BID Continue to monitor input and output and electrolytes.
--- NOTE | 2025-01-07 14:16 | EKG ---
Test Date: 2025-01-06 Test Time: 15:05:56 Program Project Manager: CULLEN MEASUREMENT RESULTS: Intervals: Rate: 81 MD: 208 QRSD: 94 QT: 392 QTc: 455 Norris: P: 44 MD: 208 QRS: 39 T: 40 INTERPRETIVE STATEMENTS: Normal sinus rhythm Normal ECG Compared to ECG 10/16/2024 13:21:40 No significant changes Electronically Signed On 01-07-25 14:13:04 CDT by Jeronimo Upton
[2025-01-07] MEDS ORDERED: LIDOCAINE 1% MPF 5 ML VIAL ONE (14:55)
[2025-01-07] MEDS ORDERED: propofoL 200 MG/20 ML VIAL IV ONE (14:55)
[2025-01-07] MEDS: MAGNESIUM CITRATE 300 ML BOT PO SCH (15:42)
[2025-01-07] MEDS: BISACODYL E.C. 5 MG TAB PO ONE (16:20)
[2025-01-07] MEDS: GOLYTELY 4000 ML PO SCH (16:20)
[2025-01-07] MEDS: METOCLOPRAMIDE 10 MG/2mL INJ IV SCH (16:20)
[2025-01-07] MEDS: FUROSEMIDE 40 MG/4 ML VIAL IV SCH (16:46)
--- NOTE | 2025-01-07 21:15 | CON ---
Date of Consultation: 01/07/2025 Reason For Consultation: Iron deficiency anemia with hemoglobin of 6.2, ferritin of 6, and iron satu ration of 4.2%. History Of Present Illness: This patient is a 59-year-old white male with history of morbid obesity, diabetes, hypertension, peripheral vascular disease, nonalcoholic steatohepatitis, cirrhosis, stroke , generalized anxiety disorder, depression, gastric bypass surgery. The patient [facility] due to exertional dyspnea, bilateral lower extremity edema, generalized weakness, found to have an exacerbation of his congestive heart failure it appears and has been treated. Also, found to hav e anemia with a hemoglobin down to 6.2 with a ferritin low at 6.0, and iron saturation of 4.2, consis tent with iron deficiency anemia. He reports having a colonoscopy 3 years ago revealing colon polyps and also an upper endoscopy at that time 3 years ago revealing a possible bleeding peptic ulcer dise ase. Past Medical History: Significant for diabetes, hypertension, peripheral vascular disease, nonalcoho lic steatohepatitis, cirrhosis, stroke. Denies anxiety disorder, depression. GI bleed due to peptic ulcer disease, diabetic neuropathy, gastric bypass surgery, bilateral knee surgeries, left 2nd toe a mputation, hyperlipidemia, leg swelling with neuropathy and left foot wound. Medications: Include Amaryl, metformin, paroxetine, lisinopril, atorvastatin, Lasix, Tradjenta, Bact rim, hydrochlorothiazide, Plavix, meclizine, and potassium. Allergies: CIPROFLOXACIN, PENICILLIN, ASPIRIN, AND FLU VACCINE. Social History: Single, never , no kids. Says he is oldest of 6 siblings. His father e violeta so patient helped raise his other 5 siblings and moving to [place] to help them get to the [employer] where they all graduated. He denies any tobacco. He has rare alcohol use. Family History: Father of a stroke with a history of hypertension and myocardial infarction as well and in approximately 1981. Mother is alive with hypertension and stroke. Review of Systems: The patient has dyspnea on exertion, lower extremity edema, generalized weakness, anxiety, depression , anemia, fatigue, weakness, but he denies any melena, hematochezia, hematemesis, coffee-grounds emes is, hematuria, dysuria, polydipsia, hemoptysis, epistaxis, or other signs of bleeding. The patient s ays he has not seen any blood. Physical Examination: VITAL SIGNS: The patient is 6 feet 8 inches, 440 pounds. BMI of 48.3 kg/sq m. Temperature 98.3 deg cj Fahrenheit, pulse 90, respirations 20, blood pressure 140/67, O2 sat 95%. HEENT: Normocephalic, atraumatic. Anicteric. Pupils equal, round, and reactive to light. Extraocu lar movements intact. Oropharynx did reveal poor dentition. Clear. Neck: Supple. No masses. Respirations: There is some slight decreased breath sounds in the bases. Abdominal: Positive bowel sounds. Soft, obese, nontender, nondistended. Extremities: The patient has lower extremity edema. He has venous stasis disease in both feet, left greater than right with venous stasis. Possible wound on the left. Neuro: Alert and oriented x3. Able to move all extremities well. Sensation decreased to light touc h in the lower extremities. Laboratory Data: The patient has a white count of 3.0; hemoglobin 7.3, up from 6.2 yesterday; hemato crit 23.7; MCV of 72, up from 69.7; platelet count of 79. Polys of 56%, lymphocytes of 24%, monocyte s 14%, eosinophils 5%. PT of 12.8, INR of 1.13. The patient has a sodium 140, potassium 3.9, chlori de 107, bicarb 25, BUN of 9, creatinine of 0.7, glucose 122, calcium 8.0. Magnesium 3.2. Iron satur ation of 4.2%, ferritin of 6.0. Bilirubin is 1.9, direct bilirubin 0.6, indirect 0.3, AST 46, ALT of 30, alk phos 118. Total troponin I of 11. B-type natriuretic peptide 73. Total protein 7.2, album in 2.7, globulin 4.5. TSH of 1.68. UA on 10th reveals turbid, less than 5 squamous epithelial cells , greater than 50 white blood cells, 10-20 rbc's, 500 leukocyte esterase. Negative protein. Doppler study revealed bilateral mild distal peripheral vascular disease, mildly worsened since prior examin ation. Ultrasound Doppler extremity venous study reveals no deep vein or superficial vein thrombosis . Impression: 1. Anemia, hemoglobin 6.2, MCV of 69.7. Ferritin of 6, which is low and iron saturation 4.2, low, co nsistent with iron-deficiency anemia. The patient reports colonoscopy 3 years ago of colon polyps an d EGD 3 years ago with bleeding peptic ulcer disease at that time. 2. History of diabetes. 3. Hypertension. 4. Peripheral vascular disease. 5. Nonalcoholic steatohepatitis. 6. Cirrhosis. 7. Stroke. 8. Generalized anxiety disorder. 9. Depression. 10. Hyperlipidemia. 11. Gastric bypass. 12. Diabetic neuropathy. 13. Left foot surgery. 14. Left leg swelling with neuropathy. 15. Bilateral knee surgeries. 16. Left second toe amputation. 17. Thrombocytopenia consistent with cirrhosis of the liver. 18. Urinary tract infection. Recommendations: 1. EGD. 2. Colonoscopy as indicated. 3. Serial H and H, transfuse p.r.n. 4. PPI therapy. 5. IV fluid resuscitation. 6. IV antibiotics. 7. PPI therapy. FRANCISCO JAVIER/MARIANA Voice ID: [id number] Report ID: [id number]
[2025-01-08 07:59] LABS: Absolute Eosinophils 0.1 K/uL (0-0.5); Absolute Lymphocytes (CBC) 0.7 K/uL (0.7-4.9); Absolute Monocytes 0.5 K/uL (0.1-1.3); Absolute Neutrophil 1.3 K/uL (1.8-8.0); Basophils % 0.9 % (0-1.3); Eosinophils % 3.9 % (0-4.4); Hematocrit 23.3 % (39.6-49.0); Hemoglobin 7.1 g/dL (13.6-17.9); Lymphocytes % 28.2 % (15.3-44.8); MCHC 30.5 g/dL (32.0-36.0); MPV 8.1 fL (7.6-11.3); Monocytes % 17.8 % (3.3-12.3); Neutrophils % 49.2 % (41.7-73.7); Nucleated Red Blood Cells % 0.2 % (0-0); Platelets 71 thou/uL (152-406); RBC Red Blood Cell Count 3.23 M/uL (4.33-5.43); Red Cell Distribution Width 19.1 % (12.1-15.2)
[2025-01-08 08:16] LABS: Anion Gap 8.4 mEq/L (5.0-15.0); Magnesium 2.3 mg/dL (1.6-2.4); Potassium 3.4 mEq/L (3.5-5.1)
--- NOTE | 2025-01-08 09:28 | P.PN ---
Subjective Date of Service: 01/08/25 Chief Complaint: Exertional dyspnea, bilateral lower extremity edema, generalized weakness Patient with complaints of left knee pain, requesting for pain meds Review of Systems General: Unremarkable Eyes: Unremarkable ENT: Unremarkable Respiratory: Unremarkable Cardiovascular: Unremarkable Musculoskeletal: Leg Pain Integumentary: Unremarkable Neurological: Unremarkable Physical Examination - Vital Signs Temperature: 98.0 F Blood Pressure: 150/69 Pulse: 90 Respirations: 18 Pulse Ox (%): 93 - Physical Exam General: Alert, Oriented x3 HEENT: Atraumatic Respiratory: Diminished Gastrointestinal: Normal bowel sounds Musculoskeletal: No clubbing, Other (4+ bilateral lower extremities) Neurological: Normal gait, Normal speech, Normal strength at 5/5 x4 extr Assessment And Plan - Plan 1. Bilateral lower extremity edema, exertional dyspnea secondary to acute diastolic CHF exacerbation - Clinically has 4+ edema bilateral lower extremities extending all the way to the thighs - Chest x-ray positive for CHF - Initiated IV Lasix 80 mg IV twice daily - Strict I's and O's - 2D echo from a year ago showed LVEF of 65%, repeat 2D echo ordered - Cardiology consulted 2. Chronic blood loss anemia likely secondary to gastritis -On admission MCV of 62, hemoglobin 6.2 with ferritin of 6 -Status post transfusion of 2 units of PRBCs -On 01/07/2025, status post EGD which shows moderate diffuse gastritis - Continue IV iron daily x 3 days -Transition to oral Protonix BID 3. Pancytopenia secondary to fatty liver disease 4. Type 2 diabetes - On sliding scale insulin 5. History of anxiety/depression - Continue paroxetine at home dose 6. Morbid obesity 7. History of left knee osteoarthritis - Per patient, received left knee injection a few days ago at outpatient orthopedic doctors office - on prn morphine for pain control 8. DVT prophylaxis - SCDs
[2025-01-08] MEDS: NA CHLORIDE 0.9% 1,000 ML ONE (14:40)
[2025-01-08] MEDS ORDERED: propofoL 200 MG/20 ML VIAL IV ONE (16:15)
[2025-01-08] MEDS: PANTOPRAZOLE 40MG TABLET PO SCH (16:30)
[2025-01-08] MEDS: BISACODYL E.C. 5 MG TAB PO ONE ×2 (19:44→19:49)
[2025-01-08] MEDS: GOLYTELY 4000 ML PO SCH (19:49)
[2025-01-08] MEDS: HYDROCODONE/APAP 5/325 MG TAB PO PRN (19:49)
[2025-01-08] MEDS: POTASSIUM 25 MEQ EFFERV TAB PO ONE (19:49)
[2025-01-08] MEDS: MAGNESIUM CITRATE 300 ML BOT PO SCH (19:49)
[2025-01-08] MEDS: CYCLOBENZAPRINE 10 MG TAB PO PRN (20:46)
[2025-01-09 06:13] LABS: Absolute Eosinophils 0.1 K/uL (0-0.5); Absolute Lymphocytes (CBC) 0.8 K/uL (0.7-4.9); Absolute Monocytes 0.3 K/uL (0.1-1.3); Absolute Neutrophil 1.2 K/uL (1.8-8.0); Basophils % 1.9 % (0-1.3); Eosinophils % 3.2 % (0-4.4); Hematocrit 23.7 % (39.6-49.0); Hemoglobin 7.2 g/dL (13.6-17.9); Lymphocytes % 32.2 % (15.3-44.8); MCH 22.2 pg (27.0-35.0); MCHC 30.6 g/dL (32.0-36.0); MCV 72.4 fL (80-100); MPV 8.2 fL (7.6-11.3); Neutrophils % 51.7 % (41.7-73.7); Nucleated Red Blood Cells % 0.2 % (0-0); Platelets 80 thou/uL (152-406); RBC Red Blood Cell Count 3.27 M/uL (4.33-5.43); Red Cell Distribution Width 18.9 % (12.1-15.2)
[2025-01-09 06:43] LABS: Anion Gap 6.5 mEq/L (5.0-15.0); Magnesium 2.4 mg/dL (1.6-2.4); Potassium 3.5 mEq/L (3.5-5.1)
[2025-01-09] MEDS: CYCLOBENZAPRINE 10 MG TAB PO PRN (10:05)
--- NOTE | 2025-01-09 10:41 | P.PN ---
Subjective Date of Service: 01/09/25 Chief Complaint: Exertional dyspnea, bilateral lower extremity edema, generalized weakness Patient with complaints of back pain, requesting for muscle relaxer, specifically Flexeril Review of Systems General: Unremarkable Eyes: Unremarkable ENT: Unremarkable Respiratory: Unremarkable Cardiovascular: Unremarkable Genitourinary: Unremarkable Musculoskeletal: Back Pain Integumentary: Unremarkable Neurological: Unremarkable Physical Examination - Vital Signs Temperature: 97.5 F Blood Pressure: 151/76 Pulse: 80 Respirations: 14 Pulse Ox (%): 95 - Physical Exam General: Alert, Oriented x3 HEENT: Atraumatic, Normocephalic, PERRLA Neck: Supple, 2+ carotid pulse no bruit Respiratory: Clear to auscultation bilaterally, Normal air movement Cardiovascular: No edema, Normal pulses, Regular rate/rhythm Gastrointestinal: Normal bowel sounds, Soft and benign, Non-distended Neurological: Normal gait, Normal speech, Normal strength at 5/5 x4 extr Assessment And Plan - Plan 1. Bilateral lower extremity edema, exertional dyspnea secondary to acute diastolic CHF exacerbation - Clinically has 4+ edema bilateral lower extremities extending all the way to the thighs - Chest x-ray positive for CHF - Initiated IV Lasix 80 mg IV twice daily - Strict I's and O's - 2D echo from a year ago showed LVEF of 65%, repeat 2D echo ordered - Cardiology consulted 2. Chronic blood loss anemia likely secondary to gastritis -On admission MCV of 62, hemoglobin 6.2 with ferritin of 6 -Status post transfusion of 2 units of PRBCs -On 01/07/2025, status post EGD which shows moderate diffuse gastritis -Plan for colonoscopy tomorrow - Continue IV iron daily x 3 days -Transitioned to oral Protonix BID 3. Pancytopenia secondary to fatty liver disease 4. Type 2 diabetes - On sliding scale insulin 5. History of anxiety/depression - Continue paroxetine at home dose 6. Morbid obesity 7. History of left knee osteoarthritis - Per patient, received left knee injection a few days ago at outpatient orthopedic doctors office - on prn morphine and [place] for pain control 8. DVT prophylaxis - SCDs
[2025-01-09] MEDS: NA CHLORIDE 0.9% 1,000 ML ONE (12:30)
[2025-01-09] MEDS ORDERED: LIDOCAINE 1% MPF 30 ML VIAL ONE (12:43)
[2025-01-09] MEDS ORDERED: propofoL 200 MG/20 ML VIAL IV ONE (12:43)
[2025-01-09 18:43] VITALS: BMI 48.4
[2025-01-10 04:49] LABS: Absolute Lymphocytes (CBC) 0.7 K/uL (0.7-4.9); Absolute Monocytes 0.3 K/uL (0.1-1.3); Absolute Neutrophil 1.8 K/uL (1.8-8.0); Basophils % 0.6 % (0-1.3); Eosinophils % 0.8 % (0-4.4); Hematocrit 24.1 % (39.6-49.0); Hemoglobin 7.5 g/dL (13.6-17.9); Lymphocytes % 23.3 % (15.3-44.8); MCH 22.5 pg (27.0-35.0); MCHC 31.1 g/dL (32.0-36.0); MCV 72.4 fL (80-100); MPV 8.3 fL (7.6-11.3); Monocytes % 11.1 % (3.3-12.3); Neutrophils % 64.2 % (41.7-73.7); Platelets 79 thou/uL (152-406); RBC Red Blood Cell Count 3.33 M/uL (4.33-5.43); Red Cell Distribution Width 19.5 % (12.1-15.2)
[2025-01-10 05:00] LABS: Anion Gap 7.7 mEq/L (5.0-15.0); Magnesium 2.2 mg/dL (1.6-2.4); Potassium 3.7 mEq/L (3.5-5.1)
[2025-01-10 05:23] LABS: Anisocytosis 1+; Blood Morphology Comment NOTED (NOT SEEN); Platelet Estimate DECR; Polychromasia 1+; Rouleau NOTED; White Blood Cell Scan OK (OK)
--- NOTE | 2025-01-10 06:44 | P.PN ---
Date of Service: 01/10/25 Subjective Morbid obesity, lower extremity edema improving, ECHO ordered for today Review of Systems 10 point review of system negative unless listed in HPI Physical Examination - Vital Signs reviewed - Physical Exam General: Alert, Oriented x3, morbid obesity HEENT: Atraumatic, Normocephalic, Neck: Supple, 2+ carotid pulse no bruit Respiratory: Clear to auscultation bilaterally, equal unlabored Cardiovascular: regular rate/rhythm, Lower extremity edema, Gastrointestinal: Normal bowel sounds, Soft and benign, Non-distended Neurological: Normal gait, Normal speech, Normal strength at 5/5 x4 extr Assessment And Plan - Plan 1. Bilateral lower extremity edema, exertional dyspnea secondary to acute diastolic CHF exacerbation - Clinically has 4+ edema bilateral lower extremities extending all the way to the thighs - Chest x-ray positive for CHF - Initiated IV Lasix 80 mg IV twice daily - Strict I's and O's. educated on daily weights after after discharge - 2D echo from a year ago showed LVEF of 65%, repeat 2D echo ordered - Cardiology following -Educated on cardiac diet, low na, low fat 2. Chronic blood loss anemia likely secondary to gastritis -On admission MCV of 62, hemoglobin 6.2 with ferritin of 6 -Status post transfusion of 2 units of PRBCs -01/07/2025, status post EGD which shows moderate diffuse gastritis - Continue IV iron daily x 3 days -Transitioned to oral Protonix BID 3. Pancytopenia secondary to fatty liver disease 4. Type 2 diabetes - On sliding scale insulin 5. History of anxiety/depression - Continue paroxetine at home dose 6. Morbid obesity BMI 44 7. History of left knee osteoarthritis - Per patient, received left knee injection a few days ago at outpatient orthopedic doctors office - on prn morphine and [place] for pain control 8. DVT prophylaxis - SCDs
--- NOTE | 2025-01-10 09:21 | P.PN ---
Subjective Date of Service: 01/10/25 Chief Complaint: Exertional dyspnea, bilateral lower extremity edema, generalized weakness Subjective: No new changes, No C/O voiced, Tolerating diet, Ambulating, Improving Review of Systems 10-point ROS is otherwise unremarkable Physical Examination - Vital Signs Temperature: 97.7 F Blood Pressure: 135/67 Pulse: 73 Respirations: 14 Pulse Ox (%): 94 - Physical Exam General: Alert, In no apparent distress HEENT: Atraumatic, PERRLA, EOMI Neck: Supple, JVD not distended Respiratory: Clear to auscultation bilaterally, Normal air movement Cardiovascular: Regular rate/rhythm, Normal S1 S2 Gastrointestinal: Normal bowel sounds, No tenderness Musculoskeletal: No tenderness Integumentary: No rashes Neurological: Normal speech, Normal tone, Normal affect Lymphatics: No axilla or inguinal lymphadenopathy - Studies Microbiology Data (last 24 hrs): 01/06/25 16:57 Clean Catch Urine [place] Count - Final BETWEEN 10,000 & 100,000 CFU/ML 01/06/25 16:57 Clean Catch Urine - Final Medications List Reviewed: Yes Assessment And Plan - Current Problems (Diagnosis) (1) Swelling of lower extremity Current Visit: Yes Status: Acute Plan: Patient is morbidly obese with significant bilateral lower extremities edema, most likely diastolic heart failure Get echo switch lasix 80 mg IV Q8 hours Continue to monitor input and output and electrolytes.
--- NOTE | 2025-01-10 13:37 | ECHO ---
HEIGHT: 6 ft 8 in WEIGHT: 441 lb 0 oz DATE OF STUDY: 01/10/[address]: Jeronimo Upton MD 2-DIMENSIONAL: YES M.MODE: YES DOPPLER: YES COLOR FLOW: YES TDS: PORTABLE: YES DEFINITY: BUBBLE STUDY: DIAGNOSIS: CONGESTIVE HEART FAILURE CARDIAC HISTORY: CATHERIZATION: NO SURGERY: NO PROSTHETIC VALVE: NO PACEMAKER: NO MEASUREMENTS (cm) DIASTOLIC (NORMALS) SYSTOLIC (NORMALS) IVSd 1.4 (0.6-1.2) LA Diam 3.7 (1.9-4.0) LVEF 55-60% LVIDd 5.3 (3.5-5.7) LVIDs 3.8 (2.0-3.5) %FS 29% LVPWd 1.4 (0.6-1.2) Ao Diam 3.4 (2.0-3.7) 2 DIMENSIONAL ASSESSMENT: RIGHT ATRIUM: NORMAL LEFT ATRIUM: NORMAL RIGHT VENTRICLE: NORMAL LEFT VENTRICLE: NORMAL TRICUSPID VALVE: TRACE TRICUSPID REGURGITATION MITRAL VALVE: NORMAL PULMONIC VALVE: NORMAL AORTIC VALVE: NORMAL PERICARDIAL EFFUSION: NONE AORTIC ROOT: NORMAL LEFT VENTRICULAR WALL MOTION: NORMAL DOPPLER/COLOR FLOW: NORMAL COMMENTS: 1. NORMAL LEFT VENTRICULAR SYSTOLIC FUNCTION, EJECTION FRACTION 55-60%. NORMAL WALL MOTION 2. NORMAL DIASTOLIC FUNCTION 3. NORMAL FILLING PRESSURE (RIGHT ATRIAL PRESSURE 0-5 mmHg) TECHNOLOGIST: GALINA ZAVALA
[2025-01-11 04:49] LABS: Absolute Lymphocytes (CBC) 0.4 K/uL (0.7-4.9); Absolute Monocytes 0.2 K/uL (0.1-1.3); Absolute Neutrophil 1.4 K/uL (1.8-8.0); Basophils % 0.7 % (0-1.3); Eosinophils % 1.6 % (0-4.4); Hematocrit 24.6 % (39.6-49.0); Hemoglobin 7.5 g/dL (13.6-17.9); Lymphocytes % 21.2 % (15.3-44.8); MCHC 30.6 g/dL (32.0-36.0); MCV 71.9 fL (80-100); MPV 8.3 fL (7.6-11.3); Monocytes % 11.4 % (3.3-12.3); Neutrophils % 65.1 % (41.7-73.7); Nucleated Red Blood Cells % 0.3 % (0-0); Platelets 80 thou/uL (152-406); RBC Red Blood Cell Count 3.42 M/uL (4.33-5.43); Red Cell Distribution Width 19.7 % (12.1-15.2)
[2025-01-11 05:09] LABS: Anion Gap 5.6 mEq/L (5.0-15.0); Magnesium 2.2 mg/dL (1.6-2.4); Potassium 3.6 mEq/L (3.5-5.1)
[2025-01-11 12:04] LABS: Percent Reticulocyte Count 2.79 % (0.4-2.05); RBC Red Blood Cell Count 3.4 M/uL (4.33-5.43)
--- NOTE | 2025-01-11 12:34 | P.PN ---
Subjective Date of Service: 01/11/25 Chief Complaint: Exertional dyspnea, bilateral lower extremity edema, generalized weakness Subjective: No new changes, No C/O voiced, Tolerating diet, Ambulating, Improving Review of Systems 10-point ROS is otherwise unremarkable Physical Examination - Vital Signs Temperature: 97.6 F Blood Pressure: 156/75 Pulse: 87 Respirations: 20 Pulse Ox (%): 93 - Physical Exam General: Alert, In no apparent distress HEENT: Atraumatic, PERRLA, EOMI Neck: Supple, JVD not distended Respiratory: Clear to auscultation bilaterally, Normal air movement Cardiovascular: Regular rate/rhythm, Normal S1 S2 Gastrointestinal: Normal bowel sounds, No tenderness Musculoskeletal: No tenderness Integumentary: No rashes Neurological: Normal speech, Normal tone, Normal affect Lymphatics: No axilla or inguinal lymphadenopathy - Studies Microbiology Data (last 24 hrs): 01/06/25 16:57 Clean Catch Urine [place] Count - Final BETWEEN 10,000 & 100,000 CFU/ML 01/06/25 16:57 Clean Catch Urine - Final Medications List Reviewed: Yes Assessment And Plan - Current Problems (Diagnosis) (1) Swelling of lower extremity Current Visit: Yes Status: Acute Plan: Patient is morbidly obese with significant bilateral lower extremities edema, patient had an echo done that shows normal LV systolic and diastolic function. with normal filling pressures switch lasix to 80 mg po BID Continue to monitor input and output and electrolytes. Cardiology will sign off, please call with any questions.
[2025-01-11] MEDS: ALBUMIN HUMAN 25% 12.5 GM, FUROSEMIDE 100 MG in NA CHLORIDE 0.9% 40 ML IV SCH (12:37)
[2025-01-11 12:47] LABS: Ferritin 49.4 ng/mL (26-388)
--- NOTE | 2025-01-11 17:20 | P.PN ---
Date of Service: 01/11/25 Subjective Awake sitting on side of bed Reports feeling fatigued ROS 10 point ROS as noted above, otherwise negative Physical Exam General: AAO x3, morbid obesity HEENT: Atraumatic, Normocephalic, Neck: Supple, 2+ carotid pulse no bruit Respiratory: Clear BBS, equal unlabored, on room air Cardiovascular: RRR, S1S2 present, Lower extremity edema Gastrointestinal: Normal bowel sounds, Soft and benign, Non-distended Neurological: Normal speech, Normal strength at 5/5 x4 extr Vitals Reviewed Problem list Bilateral lower extremity edema, exertional dyspnea secondary to acute diastolic CHF exacerbation Chronic blood loss anemia likely secondary to gastritis Pancytopenia secondary to fatty liver disease Anemia Rule out hemolysis Type 2 diabetes History of anxiety/depression Morbid obesity BMI 44 History of left knee osteoarthritis Assessment and Plan Bilateral lower extremity edema, exertional dyspnea secondary to acute diastolic CHF exacerbation - Clinically has 4+ edema bilateral lower extremities extending all the way to the thighs - Chest x-ray positive for CHF - Initiated IV Lasix 80 mg IV twice daily - Strict I's and O's. educated on daily weights after after discharge - 2D echo from a year ago showed LVEF of 65%, repeat 2D echo WNL, trace tricuscpid regurg - Cardiology following - Educated on cardiac diet, low na, low fat - Fluid restriction 1,500 ml - Albumin lasix gtt then lasix 80 mg BID Chronic blood loss anemia likely secondary to gastritis Pancytopenia secondary to fatty liver disease AnemiaRule out hemolysis -On admission MCV of 62, hemoglobin 6.2 with ferritin of 6 -Status post transfusion of 2 units of PRBCs (01/07) -01/07/2025, status post EGD which shows moderate diffuse gastritis -Continue IV iron daily x 3 days -Transitioned to oral Protonix BID -Absolute reticulocyte 0.10, percent reticulocyte 2.79, haptoglobin pending, lactic dehydrogenase 251 Type 2 diabetes - On sliding scale insulin History of anxiety/depression - Continue paroxetine at home dose Morbid obesity BMI 44 2/2 sedentary lifestyle History of left knee osteoarthritis - Per patient, received left knee injection a few days ago at outpatient orthopedic doctors office - on prn morphine and [place] for pain control DVT prophylaxis- SCDs Full code LOS 2-3 days Time Spent Managing Pts Care (In Minutes): 35
[2025-01-12 01:22] VITALS: O2SAT 96
[2025-01-12 05:03] LABS: Absolute Lymphocytes (CBC) 0.4 K/uL (0.7-4.9); Absolute Monocytes 0.3 K/uL (0.1-1.3); Absolute Neutrophil 1.1 K/uL (1.8-8.0); Basophils % 0.8 % (0-1.3); Eosinophils % 2.1 % (0-4.4); Hematocrit 23.1 % (39.6-49.0); Hemoglobin 7.1 g/dL (13.6-17.9); Lymphocytes % 22.3 % (15.3-44.8); MCH 22.4 pg (27.0-35.0); MCV 72.2 fL (80-100); MPV 8.1 fL (7.6-11.3); Monocytes % 17.4 % (3.3-12.3); Neutrophils % 57.4 % (41.7-73.7); Nucleated Red Blood Cells % 0.3 % (0-0); Platelets 73 thou/uL (152-406); RBC Red Blood Cell Count 3.19 M/uL (4.33-5.43)
[2025-01-12 05:22] LABS: Anion Gap 6.6 mEq/L (5.0-15.0); Potassium 3.6 mEq/L (3.5-5.1)
[2025-01-12] MEDS: HYDROCORTISONE SUC 100 MG INJ IV SCH (08:51)
[2025-01-12] MEDS: SOD FERRIC GLUC COMPLX/SUCROSE 125 MG in NA CHLORIDE 0.9% 100 ML IV SCH (08:54)
[2025-01-12] MEDS: NA CHLORIDE 0.9% 250 ML ONE (11:05)
--- NOTE | 2025-01-12 11:38 | P.PN ---
Subjective Date of Service: 01/12/25 Chief Complaint: Exertional dyspnea, pancytopenia, generalized weakness, Subjective: New changes (No bleeding seen by patient. Possible hemolysis by labs. Small bowel series not done.) Review of Systems General: Weakness, Malaise Respiratory: SOB with Excertion Cardiovascular: Edema Physical Examination - Vital Signs Temperature: 98.1 F Blood Pressure: 144/77 Pulse: 79 Respirations: 16 Pulse Ox (%): 93 - Physical Exam General: Alert, In no apparent distress, Oriented x3, Cooperative HEENT: Atraumatic, Normocephalic, PERRLA, EOMI Neck: Supple Respiratory: Normal air movement Cardiovascular: Normal pulses Gastrointestinal: Soft and benign, No tenderness, No rebound, No guarding, Other (obese) Neurological: Normal speech, Normal strength at 5/5 x4 extr - Studies Medications List Reviewed: Yes Assessment And Plan - Current Problems (Diagnosis) (1) Anemia Current Visit: Yes Status: Acute (2) Pancytopenia Current Visit: Yes Status: Acute (3) Morbid obesity with BMI of 60.0-69.9, adult Onset Date: 11/19/16 Current Visit: No Status: Acute (4) Thrombocytopenia Onset Date: 05/07/18 Current Visit: No Status: Acute (5) Diabetes mellitus Onset Date: 05/07/18 Current Visit: No Status: Chronic Qualifiers: Diabetes mellitus type: type 2 Diabetes mellitus exterminator insulin use: without mcc use Diabetes mellitus complication status: with other specified complication Qualified Code(s): E11.69 - Type 2 diabetes mellitus with other specified complication (6) Diabetic neuropathy Onset Date: 05/07/18 Current Visit: No Status: Chronic Qualifiers: Diabetes mellitus type: type 2 Diabetes mellitus complication detail: diabetic polyneuropathy Qualified Code(s): E11.42 - Type 2 diabetes mellitus with diabetic polyneuropathy (7) GERD (gastroesophageal reflux disease) Current Visit: No Status: Chronic (8) Hypertension Onset Date: 05/07/18 Current Visit: No Status: Chronic Qualifiers: Hypertension type: essential hypertension Qualified Code(s): I10 - Essential (primary) hypertension (9) Splenomegaly Onset Date: 05/07/18 Current Visit: No Status: Chronic (10) Cirrhosis Onset Date: 05/07/18 Current Visit: No Status: Suspected Qualifiers: Hepatic cirrhosis type: unspecified hepatic cirrhosis Ascites presence: without ascites Qualified Code(s): K74.60 - Unspecified cirrhosis of liver (11) Obstructive sleep apnea Onset Date: 05/07/18 Current Visit: No Status: Suspected - Plan REC: 1) small bowel series and pillcam 2) hematology follow-up as outpatient
[2025-01-12] MEDS: ALBUMIN HUMAN 25% 12.5 GM, FUROSEMIDE 100 MG in NA CHLORIDE 0.9% 40 ML IV SCH (14:18)
[2025-01-12 16:03] LABS: Absolute Lymphocytes (CBC) 0.5 K/uL (0.7-4.9); Absolute Monocytes 0.2 K/uL (0.1-1.3); Absolute Neutrophil 1.9 K/uL (1.8-8.0); Basophils % 1.4 % (0-1.3); Eosinophils % 0.3 % (0-4.4); Hemoglobin 8.8 g/dL (13.6-17.9); Lymphocytes % 18.9 % (15.3-44.8); MCHC 31.6 g/dL (32.0-36.0); MCV 72.9 fL (80-100); MPV 8.2 fL (7.6-11.3); Monocytes % 6.3 % (3.3-12.3); Neutrophils % 73.1 % (41.7-73.7); Nucleated Red Blood Cells % 0.1 % (0-0); Platelets 82 thou/uL (152-406); RBC Red Blood Cell Count 3.84 M/uL (4.33-5.43); Red Cell Distribution Width 20.5 % (12.1-15.2)
[2025-01-12 16:30] VITALS: BP 153/81; TEMP 98.3
--- NOTE | 2025-01-12 19:11 | P.DS ---
Admission Date: 01/06/25 Discharge Date: 01/12/25 Disposition: MA HOME/HOME HEALTH CARE Discharge Condition: GOOD Reason for Admission: Exertional dyspnea, pancytopenia, generalized weakness, Brief History of Present Illness: Diagnosis Bilateral lower extremity edema, exertional dyspnea secondary to acute diastolic CHF exacerbation Chronic blood loss anemia likely secondary to gastritis Pancytopenia secondary to fatty liver disease Anemia Rule out hemolysis Type 2 diabetes History of anxiety/depression Morbid obesity BMI 44 History of left knee osteoarthritis HPI 01/06/25 59-year-old male, morbidly obese, history of type 2 diabetes, history hypertension, anxiety/depression, been admitted for generalized weakness, exertional dyspnea and worsening bilateral lower extremity edema. Per patient, today he tried to use the commode and found it extremity felt getting up from the commode and eventually was able to do so and again this morning tried to use the bathroom to shower and was unable to do so due to generalized weakness, bilateral lower extremity edema and left knee pain from chronic osteoarthritis. Due to overall weakness, patient then called EMS and was brought to the emergency room. In the ER, noted to have 4+ edema in bilateral lower extremities extending to the bilateral thighs. Labs showed pancytopenia with low hemoglobin of 6.2 and ferritin of 6. Chest x-ray consistent with CHF. Hospital Course: Colby was admitted and treated for the following diagnoses Bilateral lower extremity edema, exertional dyspnea secondary to acute diastolic CHF exacerbation Chronic blood loss anemia likely secondary to gastritis Pancytopenia secondary to fatty liver disease Anemia Rule out hemolysis Type 2 diabetes History of anxiety/depression Morbid obesity BMI 44 2/2 sedentary lifestyle History of left knee osteoarthritis - Clinically has 4+ edema bilateral lower extremities extending all the way to the thighs - Chest x-ray positive for CHF - Diuresed with IV Lasix 80 mg IV twice daily and albumin Lasix drip - Strict I's and O's. educated on daily weights after after discharge - 2D echo from a year ago showed LVEF of 65%, repeat 2D echo WNL, trace tricuscpid regurg - Seen by cardiology and believes the patient's heart is not contributing to the edema - Educated on cardiac diet, low na, low fat, and Fluid restriction 1,500 ml -20 pound weight loss this morning -Status post transfusion of 2 units of PRBCs (01/07) and 1 unit PRBC (01/12) -01/07/2025, status post EGD which shows moderate diffuse gastritis -Continue IV iron daily x 3 days -Transitioned to oral Protonix BID -Absolute reticulocyte 0.10, percent reticulocyte 2.79, haptoglobin pending, lactic dehydrogenase 251 -accucheck with On sliding scale insulin - Continued paroxetine at home dose On 01/12/25, Colby was seen on morning rounds hemodynamically stable. Dr. Gomes and Dr. Upton has evaluated and cleared him for discharge. Follow up outpatient with his PCP, Dr. Gomes, and Dr. Upton. Prednisone, protonix, and senokot have been prescribed. Physical Exam General: Alert and oriented x3, morbid obesity Neck: Supple, 2+ carotid pulse no bruit Respiratory: nonlabored breathing, on room air Cardiovascular: Regular rate and rhythm, S1S2 present, Lower extremity edema Gastrointestinal: Normal bowel sounds, Soft and benign, Distended (obese) Neurological: Normal speech, Normal strength at 5/5 x4 extr Vital Signs/Physical Exam: Temp Pulse Resp BP Pulse Ox 98.3 F 88 16 153/81 H 95 01/12/25 16:00 01/12/25 16:00 01/12/25 16:00 01/12/25 16:00 01/12/25 16:00 Laboratory Data at Discharge: WBC 2.60 thou/uL (4.3-10.9) L 01/12/25 15:42 Hgb 8.8 g/dL (13.6-17.9) L D 01/12/25 15:42 Hct 28.0 % (39.6-49.0) L 01/12/25 15:42 Plt Count 82 thou/uL (152-406) L 01/12/25 15:42 PT 12.8 SECONDS (10-13.0) 01/06/25 15:00 INR 1.13 01/06/25 15:00 Sodium 139 mEq/L (136-145) 01/12/25 04:33 Potassium 3.6 mEq/L (3.5-5.1) 01/12/25 04:33 BUN 7 mg/dL (7-18) 01/12/25 04:33 Creatinine 0.70 mg/dL (0.70-1.30) 01/12/25 04:33 Glucose 168 mg/dL (74-106) H 01/12/25 04:33 Magnesium 2.0 mg/dL (1.6-2.4) 01/12/25 04:33 Total Bilirubin 1.9 mg/dL (0.2-1.0) H 01/06/25 15:00 AST 46 U/L (15-37) H 01/06/25 15:00 ALT 30 U/L (16-61) 01/06/25 15:00 Alkaline Phosphatase 118 U/L (45-117) H 01/06/25 15:00 Home Medications: Glimepiride [Amaryl*] 4 mg PO BID 09/26/20 Metformin HCl 1,000 mg PO BID 09/26/20 PARoxetine HCL [Paroxetine HCl] 40 mg PO DAILY 09/26/20 lisinopriL [Lisinopril] 20 mg PO BID 11/27/21 Atorvastatin Calcium 20 mg PO DAILY 01/23/24 Furosemide [Lasix] 40 mg PO DAILY 01/23/24 Linagliptin [Tradjenta] 5 mg PO DAILY 01/23/24 hydroCHLOROthiazide [Hydrochlorothiazide*] 12.5 mg PO DAILY 02/03/24 Clopidogrel Bisulfate [Plavix*] 75 mg PO DAILY #30 tab 02/04/24 Meclizine HCl 25 mg PO Q12HP PRN 05/06/24 Potassium Chloride [Klor-Con 10] 10 meq PO BID 05/06/24 Docusate/Senna [Senokot-S*] 1 tab PO BID #60 tab 01/12/25 Pantoprazole [Protonix Tab*] 40 mg PO BIDAC #60 tab 01/12/25 predniSONE [Deltasone] 20 mg PO DAILY #5 tab 01/12/25 New Medications: predniSONE [Deltasone] 20 mg PO DAILY #5 tab Pantoprazole [Protonix Tab*] 40 mg PO BIDAC #60 tab Docusate/Senna [Senokot-S*] 1 tab PO BID #60 tab Physician Discharge Instructions: OK TO DC IV AND DC HOME FOLLOW-UP WITH PRIMARY CARE PROVIDER IN 1-2 WEEKS FOLLOW-UP WITH CARDIOLOGY IN 1-2 WEEKS FOLLOW-UP WITH GI, for capsule endoscopy, IN 1-2 WEEKS RETURN TO THE ER IF SYMPTOMS WORSENS CALL DR. HALEY AT [phone] IF ANY QUESTIONS REGARDING HOSPITAL STAY. PLEASE CALL THE FLOOR AT [phone] IF ANY MEDICATION OR NURSING QUESTIONS. Diet: AHA Activity: Fall precautions Followup: Ailin Zheng NP [Primary Care Provider] - 1-2 Weeks
== END 2025-01-12 19:12 | disposition home health service (06) | DRG 291 ==
LOC: ER 13:50 → 2ND 18:05
PROVIDERS: ADMIT Internal Medicine; ATTEND Hospitalist
PROC: 0DB68ZX Excision of Stomach, Via Natural or Artificial Opening Endoscopic, Diagnostic (ICD-10-PCS; 2025-01-07)
PROC: 0DB78ZX Excision of Stomach, Pylorus, Via Natural or Artificial Opening Endoscopic, Diagnostic (ICD-10-PCS; 2025-01-07)
PROC: 0DJD8ZZ Inspection of Lower Intestinal Tract, Via Natural or Artificial Opening Endoscopic (ICD-10-PCS; 2025-01-08)
PROC: 30233N1 Transfusion of Nonautologous Red Blood Cells into Peripheral Vein, Percutaneous Approach (ICD-10-PCS; 2025-01-08)
PROC: 0DJD8ZZ Inspection of Lower Intestinal Tract, Via Natural or Artificial Opening Endoscopic (ICD-10-PCS; principal; 2025-01-09 12:30)
DX: I11.0 Hypertensive heart disease with heart failure (principal); I50.33 Acute on chronic diastolic (congestive) heart failure; K29.01 Acute gastritis with bleeding; N39.0 Urinary tract infection, site not specified; K76.6 Portal hypertension; Q43.8 Other specified congenital malformations of intestine; D61.818 Other pancytopenia; Z68.44 Body mass index [BMI] 60.0-69.9, adult; E66.01 Morbid (severe) obesity due to excess calories; K55.20 Angiodysplasia of colon without hemorrhage; K64.8 Other hemorrhoids; K76.0 Fatty (change of) liver, not elsewhere classified; K31.89 Other diseases of stomach and duodenum; M17.12 Unilateral primary osteoarthritis, left knee; D50.9 Iron deficiency anemia, unspecified; E11.51 Type 2 diabetes mellitus with diabetic peripheral angiopathy without gangrene; E11.42 Type 2 diabetes mellitus with diabetic polyneuropathy; E11.69 Type 2 diabetes mellitus with other specified complication; K21.9 Gastro-esophageal reflux disease without esophagitis; I87.8 Other specified disorders of veins; F41.1 Generalized anxiety disorder; F32.A Depression, unspecified; G47.33 Obstructive sleep apnea (adult) (pediatric); K74.60 Unspecified cirrhosis of liver; R16.1 Splenomegaly, not elsewhere classified; Z88.0 Allergy status to penicillin; Z88.4 Allergy status to anesthetic agent; Z88.8 Allergy status to other drugs, medicaments and biological substances; Z79.82 Long term (current) use of aspirin; Z98.84 Bariatric surgery status; Z79.84 Long term (current) use of oral hypoglycemic drugs; Z79.899 Other long term (current) drug therapy; Z89.422 Acquired absence of other left toe(s)
CPT/HCPCS: 36415; 36430; 71045; 80048; 80076; 81001; 82607; 82728; 82947; 83010; 83540; 83615; 83735; 83880; 84443; 84466; 84484; 85025; 85044; 85610; 86850; 86880; 86900; 86901; 86920; 87086; 87088; 88305; 88312; 93005; 93306; 93925; 93970; 96374; 97116; 97161; 97165; 97530; 99285; J1171; J1200; J1720; J1815; J1938; J2003; J2270; J2405; J2470; J2704; J2765; J2916; J7030; J7050; P9016; P9047

== ENCOUNTER 2025-01-27 16:30 | Emergency (ER) | payer OTHER, MEDICAID ==
[2025-01-27 17:06] LABS: Absolute Lymphocytes (CBC) 0.5 K/uL (0.7-4.9); Absolute Monocytes 0.3 K/uL (0.1-1.3); Absolute Neutrophil 1.9 K/uL (1.8-8.0); Basophils % 0.4 % (0-1.3); Eosinophils % 1.6 % (0-4.4); Hematocrit 17.3 % (39.6-49.0); Lymphocytes % 16.9 % (15.3-44.8); MCH 23.6 pg (27.0-35.0); MCHC 30.9 g/dL (32.0-36.0); MCV 76.6 fL (80-100); MPV 8.2 fL (7.6-11.3); Monocytes % 11.8 % (3.3-12.3); Neutrophils % 69.3 % (41.7-73.7); Nucleated Red Blood Cells % 0.2 % (0-0); Platelets 88 thou/uL (152-406); RBC Red Blood Cell Count 2.26 M/uL (4.33-5.43); Red Cell Distribution Width 24.5 % (12.1-15.2)
--- NOTE | 2025-01-27 17:12 | RAD REPORT ---
EXAMINATION: ONE VIEW CHEST XR CLINICAL INDICATION: Dyspnea;Congestion TECHNIQUE: Frontal chest projection is submitted. Examination is limited by patient positioning and t echnique. COMPARISON: 01/06/2025 FINDINGS: Mild bilateral pulmonary edema is suspected. The heart is upper limit of normal in size. No displaced fractures identified. IMPRESSION: Mild CHF versus volume overload pattern is suspected.
[2025-01-27 17:19] LABS: Hemoglobin 5.3 g/dL (13.6-17.9)
[2025-01-27 17:25] LABS: Albumin 2.3 g/dL (3.4-5.0); Albumin/Globulin Ratio 0.6 (1.1-1.8); Anion Gap 11.2 mEq/L (5.0-15.0); Bilirubin Direct 0.5 mg/dL (0-0.2); Bilirubin Total 1.5 mg/dL (0.2-1.0); Globulin 4.1 g/dL (2.3-3.5); Magnesium 1.8 mg/dL (1.6-2.4); Potassium 4.2 mEq/L (3.5-5.1); Protein, Total 6.4 g/dL (6.4-8.2); Troponin High Sensitivity 8.6 pg/mL (<58.9)
[2025-01-27 17:45] LABS: PT Prothrombin Time 13.4 SECONDS (10-13.0); Protime INR 1.18
[2025-01-27] MEDS ORDERED: PANTOPRAZOLE 40 MG INJ ONE (17:48)
[2025-01-27 18:03] LABS: Influenza A Ag Negative; Influenza B Ag Negative; SARS-CoV-2 Antigen Rapid Res Negative (Negative)
--- NOTE | 2025-01-27 18:17 | EDPHYS ---
Physician Documentation [facility] Name: Colby Tilley Jr Age: 59 yrs Sex: Male : 1965 Arrival Date: 01/27/2025 Time: 16:30 Bed 13 Private MD: ED Physician Moreno Agee HPI: 01/27 18:02 This 59 yrs old Male presents to ER via EMS with complaints of Swelling of [place] Lower Extremity. 18:02 The patient presents with swelling. The complaints affect the right leg and left leg. namrata Context: resulted from an unknown cause, CHF. Onset: The symptoms/episode began/occurred 3 day(s) ago. Modifying factors: The symptoms are alleviated by nothing. elevating leg, the symptoms are aggravated by movement, bending knee. Associated signs and symptoms: The patient has no apparent associated signs or symptoms. Severity of symptoms: At their worst the symptoms were moderate, in the emergency department the symptoms are unchanged. The patient has experienced similar episodes in the past, multiple times. Historical: - Allergies: 16:37 Anesthesia; me1 16:37 Aspirin; me1 16:37 Lyrica; me1 16:37 PENICILLINS; me1 16:37 PROPOFOL (sensitive); me1 16:38 Ciprofloxacin; me1 - PMHx: 16:37 cirrhosis of liver; Diabetes - NIDDM; Hypertension; Left foot wound; leg swelling me1 (Unknown); neuropathy (Unknown); PVD; stroke (PVD); - PSHx: 16:37 Gastric Bypass; me1 - Immunization history:: Adult Immunizations up to date. - Infectious Disease History:: Denies. - Social history:: Smoking status: Patient denies any tobacco usage or history of. ROS: 18:08 Constitutional: Negative for fever, chills, and weight loss, Eyes: Negative for injury, [place] pain, redness, and discharge, ENT: Negative for injury, pain, and discharge, Neck: Negative for injury, pain, and swelling, Cardiovascular: Negative for chest pain, palpitations, and edema, Abdomen/GI: Negative for abdominal pain, nausea, vomiting, diarrhea, and constipation, Back: Negative for injury and pain, : Negative for injury, bleeding, discharge, and swelling, Skin: Negative for injury, rash, and discoloration, Neuro: Negative for headache, weakness, numbness, tingling, and seizure, Psych: Negative for depression, anxiety, suicide ideation, homicidal ideation, and hallucinations, Allergy/Immunology: Negative for hives, rash, and allergies, Endocrine: Negative for neck swelling, polydipsia, polyuria, polyphagia, and marked weight changes, Hematologic/Lymphatic: Negative for swollen nodes, abnormal bleeding, and unusual bruising, 18:08 Respiratory: Positive for cough, with no reported sputum, orthopnea, shortness of breath, at rest. 18:08 MS/extremity: Positive for swelling, of the right leg and left leg, 18:08 Skin: Positive for pallor, Exam: 18:08 Constitutional: This is a well developed, well nourished patient who is awake, alert, namrata and in no acute distress. Head/Face: Normocephalic, atraumatic. Eyes: Pupils equal round and reactive to light, extra-ocular motions intact. Lids and lashes normal. Conjunctiva and sclera are non-icteric and not injected. Cornea within normal limits. Periorbital areas with no swelling, redness, or edema. ENT: Nares patent. No nasal discharge, no septal abnormalities noted. Tympanic membranes are normal and external auditory canals are clear. Oropharynx with no redness, swelling, or masses, exudates, or evidence of obstruction, uvula midline. Mucous membranes moist. Neck: Trachea midline, no thyromegaly or masses palpated, and no cervical lymphadenopathy. Supple, full range of motion without nuchal rigidity, or vertebral point tenderness. No Meningismus. Chest/axilla: Normal chest wall appearance and motion. Nontender with no deformity. No lesions are appreciated. Cardiovascular: Regular rate and rhythm with a normal S1 and S2. No gallops, murmurs, or rubs. Normal PMI, no JVD. No pulse deficits. Respiratory: Lungs have equal breath sounds bilaterally, clear to auscultation and percussion. No rales, rhonchi or wheezes noted. No increased work of breathing, no retractions or nasal flaring. Abdomen/GI: Soft, non-tender, with normal bowel sounds. No distension or tympany. No guarding or rebound. No evidence of tenderness throughout. Back: No spinal tenderness. No costovertebral tenderness. Full range of motion. Male : Normal genitalia with no discharge or lesions. MS/ Extremity: Pulses equal, no cyanosis. Neurovascular intact. Full, normal range of motion., bilateral aka Neuro: Awake and alert, GCS 15, oriented to person, place, time, and situation. Cranial nerves II-XII grossly intact. Motor strength 5/5 in all extremities. Sensory grossly intact. Cerebellar exam normal. Normal gait. Psych: Awake, alert, with orientation to person, place and time. Behavior, mood, and affect are within normal limits. 18:08 ECG was reviewed by the Attending Physician. 18:08 Musculoskeletal/extremity: ROM: no acute changes, intact in all extremities, full active range of motion, full passive range of motion, Circulation is intact in all extremities. Sensation intact. Compartment Syndrome exam of affected extremity: is normal. Weight bearing: able to fully bear weight, DVT Exam: swelling, that is mild, that is moderate, of the right leg and left leg, Vital Signs: 16:34 BP 138 / 70; Pulse 100; Resp 20; Temp 98.4; Pulse Ox 94% on R/A; Weight 200.49 kg; me1 Height 6 ft. 8 in. ; Pain 8/10; 17:00 BP 116 / 72; Pulse 97; Resp 18; Pulse Ox 98% ; me1 18:00 BP 143 / 80; Pulse 100; Pulse Ox 99% on R/A; Pain 0/10; me1 19:00 BP 118 / 51; Pulse 91; Resp 16; Pulse Ox 99% ; me1 20:00 BP 113 / 72; Pulse 90; Resp 19; Temp 97.4; Pulse Ox 100% ; me1 21:00 BP 126 / 63; Pulse 90; Resp 16; Temp 97.3; Pulse Ox 100% ; me1 21:56 BP 117 / 61; Pulse 85; Resp 19; Temp 97.6; Pulse Ox 100% ; me1 22:50 BP 138 / 68; Pulse 87; Resp 17 S; Pulse Ox 100% on R/A; ha1 23:50 BP 123 / 59; Pulse 84; Resp 16; Temp 98.6(O); Pulse Ox 100% on R/A; ha1 16:34 Body Mass Index 48.56 (200.49 kg, 203.2 cm) me1 16:34 Pain Scale: Adult me1 18:00 Pain Scale: Adult me1 MDM: 16:33 Medical Screening Exam initiated namrata 18:13 Differential diagnosis: contusion, tendonitis. Data reviewed: vital signs, nurses [place] notes, lab test result(s), EKG, radiologic studies, plain films. Consideration of Admission/Observation Patient was admitted/placed on observation. Escalation of care including admission/observation considered. I considered the following discharge prescriptions or medication management in the emergency department Medications were administered in the Emergency Department. See MAR. Independent interpretation of the following test(s) in the Emergency Department EKG: See my EKG interpretation above. Test considered but Not performed: Ultrasound NO AB USG, NO CT ABD /PEL. Historians other than the Patient: EMS: [facility]. Care significantly affected by the following chronic conditions: Diabetes, Hypertension, Obesity, Liver Disease, TRANSFUSIONS. Counseling: I had a detailed discussion with the patient and/or guardian regarding the historical points, exam findings, and any diagnostic results supporting the discharge/admit diagnosis, lab results, radiology results, the need to transfer to another facility, for higher level of care, [facility] does not immediately have the required specialist. 01/27 17:21 Order name: Type And Screen [email or web address] 01/27 16:34 Order name: Basic Metabolic Panel; Complete Time: 17:57 [facility] 01/27 16:34 Order name: CBC with Diff [facility] 01/27 16:34 Order name: LFT's; Complete Time: 17:57 [facility] 01/27 16:34 Order name: Magnesium; Complete Time: 17:57 [facility] 01/27 16:34 Order name: NT PRO-BNP; Complete Time: 17:57 [facility] 01/27 16:34 Order name: PT-INR; Complete Time: 17:57 [facility] 01/27 16:34 Order name: Troponin HS; Complete Time: 17:57 [facility] 01/27 16:34 Order name: COVID-19 Ag + Flu A+B Ag; Complete Time: 18:17 [facility] 01/27 16:34 Order name: Lipase; Complete Time: 17:57 [facility] 01/27 16:34 Order name: UA W/ Microscopic; Complete Time: 21:19 [facility] 01/27 18:01 Order name: Retic Count; Complete Time: 18:42 [facility] 01/27 18:01 Order name: B12 [facility] 01/27 18:01 Order name: Ferritin [facility] 01/27 18:01 Order name: Iron Level [facility] 01/27 18:01 Order name: TIBC [facility] 01/27 18:48 Order name: Packed RBCs (Additional Unit) [facility] 01/27 23:06 Order name: CBC Smear Scan [facility] 01/27 16:34 Order name: XRAY Chest (1 view); Complete Time: 17:57 [facility] 01/27 16:34 Order name: Cardiac monitoring; Complete Time: 17:11 [facility] 01/27 16:34 Order name: EKG - Nurse/Tech; Complete Time: 17:11 [facility] 01/27 16:34 Order name: IV Saline Lock; Complete Time: 16:54 [facility] 01/27 16:34 Order name: Labs collected and sent; Complete Time: 16:54 [facility] 01/27 16:34 Order name: O2 Per Protocol; Complete Time: 16:54 [facility] 01/27 16:34 Order name: O2 Sat Monitoring; Complete Time: 16:54 [facility] 01/27 18:18 Order name: Oxygen: 2 LITER; Complete Time: 21:33 [facility] 01/27 18:23 Order name: Transfuse; Complete Time: 21:33 [facility] EC:08 Rate is 93 beats/min. Rhythm is regular. QRS [place] is Normal. NV interval is normal. QRS [place] interval is normal. QT interval is normal. No Q waves. T waves are Normal. No ST changes noted. Clinical impression: Normal ECG and No evidence of ischemia. Interpreted by me. Reviewed by me. Administered Medications: 17:56 Drug: Pantoprazole IVP 40 mg IVP once Route: IVP; Site: right antecubital; me1 21:33 Follow up: Response: No adverse reaction me1 Disposition Summary: 01/27/25 18:16 Transfer Ordered Notes: Transfer Location: [facility] [place] Reason: Higher level of care [place] Condition: Fair [place] Problem: new [place] Symptoms: have improved [place] Accepting Physician: TO [facility](01/28/25 00:31) ha1 Diagnosis - Morbid (severe) obesity with alveolar hypoventilation [place] - Anemia, unspecified [place] - Chronic combined systolic (congestive) and diastolic (congestive) heart failure [place] - Edema, unspecified [place] - Other pancytopenia [place] - Other cirrhosis of liver [place] Forms: - Medication Reconciliation Form [place] - SBAR form [place] Signatures: Dispatcher [employer] [facility] Moreno Agee MD MD cha Leal, Jahala RN RN [id number] Dena Johnson, RN RN ha1 Katlyn Gray, RN RN me1 Corrections: (The following items were deleted from the chart) 16:35 16:35 BASIC METABOLIC PANEL+C.LAB.BRZ ordered. EDMS EDMS 16:35 16:35 CBC+H.LAB.BRZ ordered. EDMS EDMS 16:35 16:35 HEPATIC FUNCTION+C.LAB.BRZ ordered. EDMS EDMS 16:35 16:35 MAGNESIUM+C.LAB.BRZ ordered. EDMS EDMS 16:35 16:35 PROBNP+C.LAB.BRZ ordered. EDMS EDMS 16:35 16:35 PROTIME (+INR)+COAG.LAB.BRZ ordered. EDMS EDMS 16:35 16:35 Troponin High Sensitivity+C.LAB.BRZ ordered. EDMS EDMS 16:35 16:35 COVID-19 Ag + Flu A+B Ag+I.LAB.BRZ ordered. EDMS EDMS 16:35 16:35 LIPASE+C.LAB.BRZ ordered. EDMS EDMS 16:35 16:35 UA W/ Microscopic+U.LAB.BRZ ordered. EDMS EDMS 17:21 17:21 TYPE AND SCREEN+BB.LAB.BRZ ordered. EDMS EDMS 17:21 17:21 PACKED RBC LEUKORED+BB.LAB.BRZ ordered. EDMS EDMS 18:05 18:05 BB Add On+BB.LAB.BRZ ordered. EDMS EDMS 18:18 18:16 TO [facility] [place] 18:27 18:18 TO [facility] 01/28 00:31 01/27 18:27 TO [facility] ha1
--- NOTE | 2025-01-27 18:17 | ER ---
Nurse's Notes [facility] Name: Colby Tilley Jr Age: 59 yrs Sex: Male : 1965 Arrival Date: 01/27/2025 Time: 16:30 Bed 13 Private MD: Diagnosis: Morbid (severe) obesity with alveolar hypoventilation;Anemia, unspecified;Chronic combined systolic (congestive) and diastolic (congestive) heart failure;Edema, unspecified;Other pancytopenia;Other cirrhosis of liver Presentation: 01/27 16:34 Chief complaint: EMS states: toned out for swelling. nurse noted 7 pound weight gain me1 overnight. Called PCP who wanted patient to come to ER. Patient is being seen for an ulcer to E by HH as well. States it has been draining for the past couple of weeks. BGL 266. Coronavirus screen: Vaccine status: Patient reports receiving the 2nd dose of the covid vaccine. Ebola Screen: No symptoms or risks identified at this time. Initial Sepsis Screen: Does the patient meet any 2 criteria? HR > 90 bpm. Does the patient have a suspected source of infection? No. Patient's initial sepsis screen is negative. Risk Assessment: Do you want to hurt yourself or someone else? Patient reports no desire to harm self or others. Onset of symptoms was January 27, 2025. 16:34 Method Of Arrival: EMS: [facility] 16:34 Acuity: ZENAIDA 3 me1 Triage Assessment: 16:38 General: Appears uncomfortable, obese, well groomed, well developed, well nourished, me1 Behavior is calm, cooperative, appropriate for age, Reports Pain to BLE from neuropathy. 8/10 "dull". Pain: Complains of pain in right leg and left leg Pain does not radiate. Pain currently is 8 out of 10 on a pain scale. Quality of pain is described as dull, Pain began gradually, Is continuous. EENT: No signs and/or symptoms were reported regarding the EENT system. Neuro: Level of Consciousness is awake, alert, obeys commands, Oriented to person, place, time, situation, Appropriate for age. Cardiovascular: Patient's skin is warm and dry. Cardiovascular: Reports 7 pounds weight gain since yesterday. Respiratory: Airway is patent Respiratory effort is even, unlabored, Respiratory pattern is regular, symmetrical. GI: No signs and/or symptoms were reported involving the gastrointestinal system. : No signs and/or symptoms were reported regarding the genitourinary system. Derm: Wound noted left leg Wound is ulcer. Musculoskeletal: Reports pain in left leg. Historical: - Allergies: 16:37 Anesthesia; me1 16:37 Aspirin; me1 16:37 Lyrica; me1 16:37 PENICILLINS; me1 16:37 PROPOFOL (sensitive); me1 16:38 Ciprofloxacin; me1 - PMHx: 16:37 cirrhosis of liver; Diabetes - NIDDM; Hypertension; Left foot wound; leg swelling me1 (Unknown); neuropathy (Unknown); PVD; stroke (PVD); - PSHx: 16:37 Gastric Bypass; me1 - Immunization history:: Adult Immunizations up to date. - Infectious Disease History:: Denies. - Social history:: Smoking status: Patient denies any tobacco usage or history of. Screenin:41 [facility] ED Fall Risk Assessment (Adult) History of falling in the last 3 months, me1 including since admission No falls in past 3 months (0 pts) Confusion or Disorientation No (0 pts) Intoxicated or Sedated No (0 pts) Impaired Gait No (0 pts) Mobility Assist Device Used No (0 pt) Altered Elimination No (0 pt) Score/Fall Risk Level 0 - 2 = Low Risk Maintained a safe environment, Provided non-skid footwear, Hourly rounding (assess needs \\T\\ fall precautionary measures) done. Abuse screen: Denies threats or abuse. Nutritional screening: No deficits noted. Tuberculosis screening: No symptoms or risk factors identified. Assessment: 16:41 General: See triage assessment. me1 18:00 Reassessment: Patient is alert, oriented x 3, equal unlabored respirations, skin me1 warm/dry/pink. 20:00 Reassessment: Patient is alert, oriented x 3, equal unlabored respirations, skin me1 warm/dry/pink. 21:34 Reassessment: Patient is alert, oriented x 3, equal unlabored respirations, skin me1 warm/dry/pink. 22:10 Reassessment: Patient is alert, oriented x 3, equal unlabored respirations, skin ha1 warm/dry/pink. 22:30 Reassessment: attempted to give report. ha1 22:50 Reassessment: second unit of blood started. ha1 23:00 Reassessment: attempted to give report. 1 23:47 Reassessment: report given to receiving nurse VIRI GEE. 1 Vital Signs: 16:34 BP 138 / 70; Pulse 100; Resp 20; Temp 98.4; Pulse Ox 94% on R/A; Weight 200.49 kg; me1 Height 6 ft. 8 in. ; Pain 8/10; 17:00 BP 116 / 72; Pulse 97; Resp 18; Pulse Ox 98% ; me1 18:00 BP 143 / 80; Pulse 100; Pulse Ox 99% on R/A; Pain 0/10; me1 19:00 BP 118 / 51; Pulse 91; Resp 16; Pulse Ox 99% ; me1 20:00 BP 113 / 72; Pulse 90; Resp 19; Temp 97.4; Pulse Ox 100% ; me1 21:00 BP 126 / 63; Pulse 90; Resp 16; Temp 97.3; Pulse Ox 100% ; me1 21:56 BP 117 / 61; Pulse 85; Resp 19; Temp 97.6; Pulse Ox 100% ; me1 22:50 BP 138 / 68; Pulse 87; Resp 17 S; Pulse Ox 100% on R/A; ha1 23:50 BP 123 / 59; Pulse 84; Resp 16; Temp 98.6(O); Pulse Ox 100% on R/A; ha1 16:34 Body Mass Index 48.56 (200.49 kg, 203.2 cm) me1 16:34 Pain Scale: Adult me1 18:00 Pain Scale: Adult [facility] ED Course: 16:32 Patient arrived in ED. me1 16:33 Moreno Agee MD is Attending Physician. [facility] 16:37 Triage completed. me1 16:38 Arm band placed on Patient placed in an exam room. me1 16:41 Patient has correct armband on for positive identification. Bed in low position. Call [facility] light in reach. Side rails up X2. Provided Education on: POC. Verbalized understanding. Client placed on continuous cardiac and pulse oximetry monitoring. NIBP monitoring applied. front desk monitor on. Pulse ox on. NIBP on. 16:41 No provider procedures requiring assistance completed. me1 16:53 Katlyn Gray RN is Primary Nurse. me1 16:53 Initial lab(s) drawn, by me, sent to lab. COVID swab sent to lab. Flu and/or RSV swab me1 sent to lab. Inserted saline lock: 20 gauge in right antecubital area, using aseptic technique. 16:54 Basic Metabolic Panel Sent. me1 16:54 CBC with Diff Sent. me1 16:54 LFT's Sent. me1 16:54 Magnesium Sent. me1 16:54 NT PRO-BNP Sent. me1 16:54 PT-INR Sent. me1 16:54 Troponin HS Sent. me1 16:54 Lipase Sent. me1 16:54 COVID-19 Ag + Flu A+B Ag Sent. me1 17:00 XRAY Chest (1 view) In Process Unspecified. EDIA 17:11 EKG done, by ED staff, reviewed by Moreno Agee MD. me1 17:19 Notified ED physician of a critical lab result(s). hgb 5.3. ss 17:35 Type And Screen Sent. me1 17:35 ABO/RH typing Sent. me1 17:35 Antibody Screen Sent. me1 17:35 T\\T\\S collected, blood band applied to patient. me1 21:33 Iron Level Sent. nm1 23:23 Dena, RN attempted to give report. Nurse at [facility] refused report due to the unit not [facility] having anymore Tele boxes. Notified Fatou at the transfer center. 01/28 00:25 Patient transferred, IV remains in place. ha1 Administered Medications: 01/27 17:56 Drug: Pantoprazole IVP 40 mg IVP once Route: IVP; Site: right antecubital; nm1 21:33 Follow up: Response: No adverse reaction me1 Medication: 16:41 VIS not applicable for this client. nm1 Outcome: 18:16 ER care complete, transfer ordered by . namrata 01/28 00:25 Transferred by ground EMS to [facility], Transfer form completed. ha1 X-rays sent w/ patient. Condition: stable Instructed on the need for transfer, Demonstrated understanding of instructions, 00:31 Patient left the ED. ha1 Signatures: Dispatcher [employer] Moreno Mcginnis MD MD cha Blanchard, Shelby, RN RN Dena Ibarra RN RN [facility] Katlyn Gray RN RN me1 Tatiana Bruner [facility] Corrections: (The following items were deleted from the chart) 01/27 18:40 17:00 BP 115 / 8; Pulse 53bpm; Resp 19bpm; Pulse Ox 98%; me1 nm1 18:40 18:37 BP 143 / 80; Pulse 100bpm; Pulse Ox 99% RA; Pain 0/10, Adult; ss [facility] 21:32 16:38 Derm: Wound noted right cunningham Wound is ulcer [place] [id number] 21:32 16:38 Musculoskeletal: Reports pain in right leg and left leg [place] [id number]
[2025-01-27 18:29] LABS: Percent Reticulocyte Count 3.29 % (0.4-2.05); RBC Red Blood Cell Count 2.4 M/uL (4.33-5.43)
[2025-01-27 19:07] LABS: Specific Gravity 1.025 (1.005-1.030); Sqamous Epithelial <5 /HPF (None Seen); Urine Bacteria <20 /HPF (<20); Urine Bilirubin NEGATIVE (Negative); Urine Blood Negative (Negative); Urine Clarity Clear (Clear); Urine Color Yellow (Yellow); Urine Crystals Unidentified Few /HPF (None Seen); Urine Glucose 4+ (Over) (Negative); Urine Ketones NEGATIVE (Negative); Urine Micro Reflex YN NO BILL MICROSCOPIC; Urine Mucus Slight /HPF (None Seen); Urine Nitrite NEGATIVE (Negative); Urine Protein NEGATIVE (Negative); Urine Urobilinogen 1+ (Normal); Urine pH 5.5 (5.0-7.0)
[2025-01-27] MEDS ORDERED: NA CHLORIDE 0.9% 250 ML ONE ×2 (19:09→22:10)
[2025-01-27 21:31] LABS: Ferritin 6.9 ng/mL (26-388)
[2025-01-27 23:06] LABS: Blood Morphology Comment NOTED (NOT SEEN); White Blood Cell Scan OK (OK)
[2025-01-27 23:07] LABS: Anisocytosis 3+; Microcytosis 2+; Ovalocytes 1+; Platelet Estimate DECR
[2025-01-28 01:18] VITALS: O2SAT 100
[2025-01-28 01:25] VITALS: BP 123/59; TEMP 98.6
--- NOTE | 2025-01-28 16:26 | EKG ---
Test Date: 2025-01-27 Test Time: 17:07:52 Clothing Designer: MEASUREMENT RESULTS: Intervals: Rate: 93 KS: 174 QRSD: 90 QT: 378 QTc: 469 [place]: P: 49 KS: 174 QRS: 57 T: 74 INTERPRETIVE STATEMENTS: Normal sinus rhythm Normal ECG Compared to ECG 01/06/2025 15:05:56 No significant changes Electronically Signed On 01-28-25 16:26:01 CDT by Jeronimo Upton
== END 2025-01-28 00:31 | disposition short-term general hospital (02) ==
LOC: ER 16:30
PROC: 30233N1 Transfusion of Nonautologous Red Blood Cells into Peripheral Vein, Percutaneous Approach (ICD-10-PCS; principal; 2025-01-28)
DX: E66.2 Morbid (severe) obesity with alveolar hypoventilation (principal); D64.9 Anemia, unspecified; I50.42 Chronic combined systolic (congestive) and diastolic (congestive) heart failure; D61.818 Other pancytopenia; K74.69 Other cirrhosis of liver; E11.9 Type 2 diabetes mellitus without complications; I10 Essential (primary) hypertension; Z98.84 Bariatric surgery status; Z11.52 Encounter for screening for COVID-19
CPT/HCPCS: 93005; 85025; 81001; 80048; 36415; 86900; 83735; 86850; 85610; 85044; 86901; 80076; 86920 ×2; 84484; 82728; 82607; 83690; 83540; 83880; 84466; 71045; 96374; 99285; 87428; 36430; J2470; P9016 ×2; J7050 ×2

== ENCOUNTER 2025-05-09 13:35 | Inpatient (IN) | payer OTHER, MEDICAID ==
[2025-05-09 15:24] LABS: Absolute Lymphocytes (CBC) 0.5 K/uL (0.7-4.9); Hematocrit 27.4 % (39.6-49.0); Hemoglobin 8.6 g/dL (13.6-17.9); MCH 23.5 pg (27.0-35.0); MCHC 31.5 g/dL (32.0-36.0); MCV 74.7 fL (80-100); MPV 8.2 fL (7.6-11.3); Nucleated RBC Absolute Count 0.0 (0-0); Nucleated Red Blood Cells % 0.0 % (0-0); RBC Red Blood Cell Count 3.67 M/uL (4.33-5.43); White Blood Count 4.80 thou/uL (4.3-10.9)
[2025-05-09 15:28] LABS: PT Prothrombin Time 15.5 SECONDS (10-13.0); Protime INR 1.38
--- NOTE | 2025-05-09 15:32 | RAD REPORT ---
EXAM: Chest Single View HISTORY: 59 years Male ABDOMINAL DISTENTION COMPARISON: 04/27/2025 FINDINGS: LUNGS/PLEURA: Low lung volumes with pulmonary vascular congestion. CARDIAC/MEDIASTINUM: The cardiac silhouette is within normal limits. UPPER ABDOMEN: No significant abnormality. BONES: No acute abnormality. LINES/TUBES/OTHER: N/A IMPRESSION: Low lung volumes and possible vascular congestion. No alveolar edema. No consolidative airspace disea se.
[2025-05-09 15:43] LABS: ALT/SGPT 15.0 U/L (16-61); AST/SGOT 26.0 U/L (15-37); Albumin 2.3 g/dL (3.4-5.0); Albumin/Globulin Ratio 0.5 (1.1-1.8); Alkaline Phosphatase 90.0 U/L (45-117); Anion Gap 6.8 mEq/L (5.0-15.0); BUN Blood Urea Nitrogen 10.0 mg/dL (7-18); Bilirubin Indirect, Calculated 2.1 mg/dL (0.2-0.8); Globulin 4.7 g/dL (2.3-3.5); Glucose Level 139.0 mg/dL (74-106); Lipase 10.0 U/L (13-75); Magnesium 1.8 mg/dL (1.6-2.4); NT PRO-BNP 181.0 pg/mL (<125); Potassium 3.8 mEq/L (3.5-5.1); Troponin High Sensitivity 8.3 pg/mL (<58.9)
[2025-05-09] MEDS ORDERED: NA CHLORIDE 0.9% 500 ML ONE ×3 (15:45→18:59)
[2025-05-09] MEDS ORDERED: FAMOTIDINE 20 MG/2 ML VIAL IV ONE (15:45)
[2025-05-09 17:24] LABS: Anisocytosis 1+; Blood Morphology Comment NOTED (NOT SEEN); White Blood Cell Scan OK (OK)
[2025-05-09 17:25] LABS: Ovalocytes SLIGHT; Poikilocytosis SLIGHT; Polychromasia SLIGHT
--- NOTE | 2025-05-09 17:46 | EDPHYS ---
Physician Documentation [facility] Name: Colby Tilley Jr Age: 59 yrs Sex: Male : 1965 Arrival Date: 05/09/2025 Time: 13:35 Bed 24 Private MD: BENIGNO Physician Moreno Agee HPI: 05/09 17:36 This 59 yrs old Male presents to ER via EMS with complaints of Abdominal Pain.namrata 17:36 The patient presents with decreased range of motion, an injury, pain, that is acute. namrata The complaints affect the lateral aspect of right foot and dorsum of right foot. Context: The problem was sustained at an unknown site, resulted from an unknown cause, the patient can partially bear weight. Onset: The symptoms/episode began/occurred 5 day(s) ago. Modifying factors: The symptoms are alleviated by nothing. the symptoms are aggravated by movement, weight bearing. Associated signs and symptoms: The patient has no apparent associated signs or symptoms. The patient presents with abdominal distention in the upper abdomen, in the lower abdomen. RIGHT FOOT DIABETIC FOOT, INFECTED. The patient presents with an abscess, moderate-sized, an injury, pain, swelling, tenderness. Historical: - Allergies: 13:53 Anesthesia; dd2 13:53 Aspirin; dd2 13:53 Ciprofloxacin; dd2 13:53 Lyrica; dd2 13:53 PENICILLINS; dd2 13:53 PROPOFOL (sensitive); dd2 - PMHx: 13:53 cirrhosis of liver; Diabetes - NIDDM; Hypertension; Left foot wound; leg swelling dd2 (Unknown); neuropathy (Unknown); PVD; stroke (PVD); - PSHx: 13:53 Cholecystectomy; Gastric Bypass; dd2 - Immunization history:: Adult Immunizations up to date. - Infectious Disease History:: Denies. - Social history:: Smoking status: Patient reports the use of cigarette tobacco products, smokes one pack cigarettes per day. - Family history:: not pertinent. ROS: 17:36 Constitutional: Negative for fever, chills, and weight loss, Eyes: Negative for injury, namrata pain, redness, and discharge, ENT: Negative for injury, pain, and discharge, Neck: Negative for injury, pain, and swelling, Cardiovascular: Negative for chest pain, palpitations, and edema, Respiratory: Negative for shortness of breath, cough, wheezing, and pleuritic chest pain, Back: Negative for injury and pain, : Negative for injury, bleeding, discharge, and swelling, Neuro: Negative for headache, weakness, numbness, tingling, and seizure, Psych: Negative for depression, anxiety, suicide ideation, homicidal ideation, and hallucinations, Allergy/Immunology: Negative for hives, rash, and allergies, Endocrine: Negative for neck swelling, polydipsia, polyuria, polyphagia, and marked weight changes, Hematologic/Lymphatic: Negative for swollen nodes, abnormal bleeding, and unusual bruising, 17:36 Abdomen/GI: Positive for abdominal pain, abdominal distension, 17:36 MS/extremity: Positive for decreased range of motion, erythema, pain, swelling, tenderness, of the right foot, 17:36 Skin: Positive for cellulitis, erythema, swelling, of the right foot, Exam: 17:39 Constitutional: This is a well developed, well nourished patient who is awake, alert, namrata and in no acute distress. Head/Face: Normocephalic, atraumatic. Eyes: Pupils equal round and reactive to light, extra-ocular motions intact. Lids and lashes normal. Conjunctiva and sclera are non-icteric and not injected. Cornea within normal limits. Periorbital areas with no swelling, redness, or edema. ENT: Nares patent. No nasal discharge, no septal abnormalities noted. Tympanic membranes are normal and external auditory canals are clear. Oropharynx with no redness, swelling, or masses, exudates, or evidence of obstruction, uvula midline. Mucous membranes moist. Neck: Trachea midline, no thyromegaly or masses palpated, and no cervical lymphadenopathy. Supple, full range of motion without nuchal rigidity, or vertebral point tenderness. No Meningismus. Chest/axilla: Normal chest wall appearance and motion. Nontender with no deformity. No lesions are appreciated. Cardiovascular: Regular rate and rhythm with a normal S1 and S2. No gallops, murmurs, or rubs. Normal PMI, no JVD. No pulse deficits. Back: No spinal tenderness. No costovertebral tenderness. Full range of motion. Male : Normal genitalia with no discharge or lesions. Neuro: Awake and alert, GCS 15, oriented to person, place, time, and situation. Cranial nerves II-XII grossly intact. Motor strength 5/5 in all extremities. Sensory grossly intact. Cerebellar exam normal. Normal gait. Psych: Awake, alert, with orientation to person, place and time. Behavior, mood, and affect are within normal limits. 17:39 ECG was reviewed by the Attending Physician. 17:39 Respiratory: the patient does not display signs of respiratory distress, Respirations: normal, Breath sounds: are clear throughout, no bronchial sounds, no decreased breath sounds, no rales, rhonchi, no stridor, no wheezing, Respiratory rate: 16 17:39 Musculoskeletal/extremity: ROM: full active range of motion, full passive range of motion, Circulation is intact in all extremities. decreased sensation, Compartment Syndrome exam of affected extremity: is normal. DVT Exam: negative Homans' sign noted on exam, no appreciated bluish discoloration, pain, swelling, tenderness, erythema, increased warmth, that is moderate, of the right leg, of the lateral aspect of right foot, medial aspect of right foot and dorsum of right foot, Vital Signs: 13:49 BP 126 / 74; Pulse 95; Resp 18; Temp 99.1; Pulse Ox 96% ; Pain 10/10; dd2 16:00 BP 146 / 91; Pulse 85; Resp 16; Pulse Ox 93% on R/A; ll1 17:30 BP 143 / 84; Pulse 92; Resp 16; Pulse Ox 95% on R/A; jb4 18:30 BP 133 / 78; Pulse 87; Resp 16; Pulse Ox 93% on R/A; jb4 19:28 BP 140 / 73; Pulse 84; Resp 18; Pulse Ox 94% on R/A; jb4 20:00 BP 138 / 78; Pulse 88; Resp 16; Pulse Ox 97% on 2 lpm NC; jb4 13:49 Pain Scale: Adult dd2 20:00 Pt desats when sleeping jb4 MDM: 14:16 Medical Screening Exam initiated namrata 17:43 Differential diagnosis: closed fracture, contusion, tendonitis, sprain, arthritis, namrata cellulitis. Differential Diagnosis altered mental status, sepsis, flu. Data reviewed: vital signs, nurses notes, EMS record, lab test result(s), EKG, radiologic studies, plain films. Consideration of Admission/Observation Patient was admitted/placed on observation. Escalation of care including admission/observation considered. I considered the following discharge prescriptions or medication management in the emergency department Medications were administered in the Emergency Department. See MAR. Independent interpretation of the following test(s) in the Emergency Department EKG: See my EKG interpretation above. Test considered but Not performed: MRI: NO MRI FOOT, NO CT AB/PEL SECONDARY TO WEIGHT. 05/09 14:17 Order name: Basic Metabolic Panel; Complete Time: 17:24 [facility] 05/09 14:17 Order name: CBC with Diff; Complete Time: 17:30 [facility] 05/09 14:17 Order name: LFT's; Complete Time: 17:24 [facility] 05/09 14:17 Order name: Magnesium; Complete Time: 17:24 [facility] 05/09 14:17 Order name: NT PRO-BNP; Complete Time: 17:24 [facility] 05/09 14:17 Order name: PT-INR; Complete Time: 17:24 [facility] 05/09 14:17 Order name: Troponin HS; Complete Time: 17:24 [facility] 05/09 14:17 Order name: Lipase; Complete Time: 17:24 [facility] 05/09 14:17 Order name: AMMONIA; Complete Time: 17:24 [facility] 05/09 17:25 Order name: CBC Smear Scan; Complete Time: 17:30 [facility] 05/09 18:45 Order name: CBC with Automated Diff [facility] 05/09 18:45 Order name: CBC with Automated Diff [facility] 05/09 18:45 Order name: Comprehensive Metabolic Panel [facility] 05/09 18:45 Order name: Comprehensive Metabolic Panel [facility] 05/09 14:17 Order name: XRAY Chest (1 view); Complete Time: 17:24 [facility] 05/09 17:31 Order name: Foot Right 3 View XRAY [facility] 05/09 19:13 Order name: RAD [facility] 05/09 14:17 Order name: EKG; Complete Time: 14:17 [facility] 05/09 14:17 Order name: Cardiac monitoring; Complete Time: 15:29 [facility] 05/09 14:17 Order name: EKG - Nurse/Tech; Complete Time: 15:29 [facility] 05/09 14:17 Order name: IV Saline Lock; Complete Time: 15:17 [facility] 05/09 14:17 Order name: Labs collected and sent; Complete Time: 15:17 [facility] 05/09 14:17 Order name: O2 Per Protocol; Complete Time: 15:17 [facility] 05/09 14:17 Order name: O2 Sat Monitoring; Complete Time: 15:17 [facility] 05/09 17:42 Order name: Wound Care: DRESS; Complete Time: 19:18 namrata EC:39 Rate is 88 beats/min. Rhythm is regular. QRS Carmine is Normal. NH interval is normal. QRS namrata interval is normal. QT interval is normal. No Q waves. T waves are Normal. No ST changes noted. Clinical impression: NSR w/ Non-specific ST/T Changes and No evidence of ischemia. Interpreted by me. Reviewed by me. Administered Medications: 15:51 Drug: NS 0.9% IV 500 ml 500 ml IV at 1 bolus once; to be given as a bolus over 30 ll1 minutes Volume: 500 ml; Route: IV; Rate: 1 bolus; Site: right antecubital; 16:21 Follow up: Response: No adverse reaction; IV Status: Completed infusion; IV Intake: jb4 500ml 15:52 Drug: Famotidine IVP 20 mg IVP once; dilute with 10 mL 0.9% NaCl; give over 2 minutes ll1 Route: IVP; Site: right antecubital; 16:20 Follow up: Response: No adverse reaction; Marked relief of symptoms jb4 18:43 Drug: Acetaminophen PO 1000 mg PO once Route: PO; jb4 19:13 Follow up: Response: No adverse reaction jb4 18:43 Drug: Cefepime IVPB 2 grams IVPB at 200 ml/hr once over 30 mins; (mix in NS 100 mL) jb4 Route: IVPB; Rate: 200 ml/hr; Infused Over: 30 mins; Site: right antecubital; 19:13 Follow up: Response: No adverse reaction; IV Status: Completed infusion; IV Intake: jb4 100ml 18:43 Drug: Boostrix Tdap IM 0.5 ml IM once; as a single dose Route: IM; Site: right deltoid; jb4 19:52 Follow up: Response: No adverse reaction jb4 18:43 Drug: morphine IVP or IV 4 mg IVP once over 4 mins Route: IVP; Infused Over: 4 mins; jb4 Site: right antecubital; 19:13 Follow up: Response: No adverse reaction; Marked relief of symptoms; Pain is decreased; jb4 RASS: Alert and Calm (0) 18:43 Drug: Ondansetron IVP 8 mg IVP once; over 2 minutes Route: IVP; Site: right antecubital;jb4 19:00 Follow up: Response: No adverse reaction; Marked relief of symptoms jb4 18:43 Drug: NS 0.9% IV 500 ml 500 ml IV at 1 bolus once; to be given as a bolus over 30 jb4 minutes Volume: 500 ml; Route: IV; Rate: 1 bolus; Site: right antecubital; 19:13 Follow up: Response: No adverse reaction; IV Status: Completed infusion; IV Intake: jb4 500ml 19:18 Drug: vancoMYCIN IVPB 1.5 grams IVPB at calculated rate once Route: IVPB; Rate: jb4 calculated rate; Site: right antecubital; 19:53 Follow up: IV Status: Infusion continued upon admission jb4 19:18 Drug: NS 0.9% IV 1000 ml IV at 125 ml/hr Per protocol Route: IV; Rate: 125 ml/hr; Site: jb4 right antecubital; 19:50 Follow up: Response: No adverse reaction; IV Status: Infusion continued upon admission jb4 Disposition Summary: 05/09/25 17:45 Hospitalization Ordered Notes: Hospitalization Status: Inpatient Admission namrata Provider: Ezequiel Rodriguez cha Location: Telemetry/MedSurg (Inpatient) namrata Condition: Fair namrata Problem: new namrata Symptoms: have worsened namrata Bed/Room Type: Standard [facility] Room Assignment: 413(05/09/25 19:14) rv1 Diagnosis - Cellulitis and acute lymphangitis of other parts of limb - RIGHT FOOT, DIABETIC namrata - Morbid (severe) obesity with alveolar hypoventilation namrata - Unspecified cirrhosis of liver namrata - Other ascites namrata - Anemia, unspecified namrata Forms: - Medication Reconciliation Form namrata - SBAR form namrata - Leadership Thank You Letter namrata Signatures: Dispatcher [employer] EDMS Fanny Dominguez Corey, MD MD cha Bryson, James RN RN jb4 Yajaira Arevalo RN RN ll1 Sandhya Sanchez rv1 ANIL RAMON RN RN dd2 Corrections: (The following items were deleted from the chart) 15:59 14:18 Abdomen Pelvis W Con+CT.RAD.BRZ ordered. EDMS EDMS 17:18 14:17 UA Rfx Dre Cult if indicated+U.LAB.BRZ ordered. EDMS EDMS 18:47 17:45 namrata bd 19:11 18:47 413 bd rv1 19:14 19:11 rv1 rv1
--- NOTE | 2025-05-09 17:46 | ER ---
Nurse's Notes [facility] Name: Colby Tilley Jr Age: 59 yrs Sex: Male : 1965 Arrival Date: 05/09/2025 Time: 13:35 Bed 24 Private MD: Diagnosis: Cellulitis and acute lymphangitis of other parts of limb-RIGHT FOOT, DIABETIC;Morbid (severe) obesity with alveolar hypoventilation;Unspecified cirrhosis of liver;Other ascites;Anemia, unspecified Presentation: 05/09 13:49 Chief complaint: EMS states: PT CALLED REPORTING STOMACH PAIN AND RT FOOT PAIN X 3 dd2 DAYS. PT REPORTS PARACENTESIS LAST WEEK. Coronavirus screen: At this time, the client does not indicate any symptoms associated with coronavirus-19. Ebola Screen: No symptoms or risks identified at this time. Initial Sepsis Screen: Does the patient meet any 2 criteria? No. Patient's initial sepsis screen is negative. Does the patient have a suspected source of infection? No. Patient's initial sepsis screen is negative. Risk Assessment: Do you want to hurt yourself or someone else? Patient reports no desire to harm self or others. Onset of symptoms was May 06, 2025. Care prior to arrival: Glucose check: 121. 13:49 Method Of Arrival: EMS: [facility] dd2 13:49 Acuity: ZENAIDA 3 dd2 Triage Assessment: 13:53 General: Appears in no apparent distress. uncomfortable, Behavior is calm, cooperative, dd2 appropriate for age. Pain: Complains of pain in abdomen and right foot. GI: Reports lower abdominal pain, upper abdominal pain, cramping, nausea. Historical: - Allergies: 13:53 Anesthesia; dd2 13:53 Aspirin; dd2 13:53 Ciprofloxacin; dd2 13:53 Lyrica; dd2 13:53 PENICILLINS; dd2 13:53 PROPOFOL (sensitive); dd2 - PMHx: 13:53 cirrhosis of liver; Diabetes - NIDDM; Hypertension; Left foot wound; leg swelling dd2 (Unknown); neuropathy (Unknown); PVD; stroke (PVD); - PSHx: 13:53 Cholecystectomy; Gastric Bypass; dd2 - Immunization history:: Adult Immunizations up to date. - Infectious Disease History:: Denies. - Social history:: Smoking status: Patient reports the use of cigarette tobacco products, smokes one pack cigarettes per day. - Family history:: not pertinent. Screenin:33 [facility] ED Fall Risk Assessment (Adult) History of falling in the last 3 months, jb4 including since admission No falls in past 3 months (0 pts) Confusion or Disorientation No (0 pts) Intoxicated or Sedated No (0 pts) Impaired Gait Yes (1 pt) Mobility Assist Device Used Yes (1 pt) Altered Elimination No (0 pt) Score/Fall Risk Level 0 - 2 = Low Risk Oriented to surroundings, Maintained a safe environment. Abuse screen: Denies threats or abuse. Nutritional screening: No deficits noted. Tuberculosis screening: No symptoms or risk factors identified. Assessment: 14:55 Reassessment: Patient and/or family updated on plan of care and expected duration. Pain ll1 level reassessed. 15:30 Reassessment: Patient appears in no apparent distress at this time. Patient and/or jb4 family updated on plan of care and expected duration. Pain level reassessed. Patient is alert, oriented x 3, equal unlabored respirations, skin warm/dry/pink. 16:30 Reassessment: Patient appears in no apparent distress at this time. Patient and/or jb4 family updated on plan of care and expected duration. Pain level reassessed. Patient is alert, oriented x 3, equal unlabored respirations, skin warm/dry/pink. 17:30 Reassessment: Patient appears in no apparent distress at this time. Patient and/or jb4 family updated on plan of care and expected duration. Pain level reassessed. Patient is alert, oriented x 3, equal unlabored respirations, skin warm/dry/pink. 18:30 Reassessment: Patient appears in no apparent distress at this time. Patient and/or jb4 family updated on plan of care and expected duration. Pain level reassessed. Patient is alert, oriented x 3, equal unlabored respirations, skin warm/dry/pink. 19:30 Reassessment: Patient appears in no apparent distress at this time. Patient and/or jb4 family updated on plan of care and expected duration. Pain level reassessed. Patient is alert, oriented x 3, equal unlabored respirations, skin warm/dry/pink. 20:32 Reassessment: Patient appears in no apparent distress at this time. Patient and/or jb4 family updated on plan of care and expected duration. Pain level reassessed. Patient is alert, oriented x 3, equal unlabored respirations, skin warm/dry/pink. Vital Signs: 13:49 BP 126 / 74; Pulse 95; Resp 18; Temp 99.1; Pulse Ox 96% ; Pain 10/10; dd2 16:00 BP 146 / 91; Pulse 85; Resp 16; Pulse Ox 93% on R/A; ll1 17:30 BP 143 / 84; Pulse 92; Resp 16; Pulse Ox 95% on R/A; jb4 18:30 BP 133 / 78; Pulse 87; Resp 16; Pulse Ox 93% on R/A; jb4 19:28 BP 140 / 73; Pulse 84; Resp 18; Pulse Ox 94% on R/A; jb4 20:00 BP 138 / 78; Pulse 88; Resp 16; Pulse Ox 97% on 2 lpm NC; jb4 13:49 Pain Scale: Adult dd2 20:00 Pt desats when sleeping jb4 ED Course: 13:47 Patient arrived in ED. cj3 13:53 Triage completed. dd2 13:53 Arm band placed on right wrist. dd2 14:16 Moreno Agee MD is Attending Physician. namrata 14:54 Patient placed in an exam room, on a stretcher. ll1 15:17 Lipase Sent. ll1 15:17 AMMONIA Sent. ll1 15:17 Troponin HS Sent. ll1 15:17 PT-INR Sent. ll1 15:17 NT PRO-BNP Sent. ll1 15:17 Magnesium Sent. ll1 15:17 LFT's Sent. ll1 15:17 CBC with Diff Sent. ll1 15:17 Basic Metabolic Panel Sent. ll1 15:29 XRAY Chest (1 view) In Process Unspecified. EDMS 16:14 Yajaira Arevalo, RN is Primary Nurse. ll1 17:44 Ezequiel Rodriguez MD is Hospitalizing Provider. namrata 17:51 bariatric bed order confirmation number [id number]. bd 19:41 Primary Nurse role handed off by Yajaira Arevalo, RN rv1 20:33 Patient has correct armband on for positive identification. Bed in low position. Call jb4 light in reach. Side rails up X 1. Provided Education on: need for admit. 20:34 No provider procedures requiring assistance completed. Patient admitted, IV remains in jb4 place. Administered Medications: 15:51 Drug: NS 0.9% IV 500 ml 500 ml IV at 1 bolus once; to be given as a bolus over 30 ll1 minutes Volume: 500 ml; Route: IV; Rate: 1 bolus; Site: right antecubital; 16:21 Follow up: Response: No adverse reaction; IV Status: Completed infusion; IV Intake: jb4 500ml 15:52 Drug: Famotidine IVP 20 mg IVP once; dilute with 10 mL 0.9% NaCl; give over 2 minutes ll1 Route: IVP; Site: right antecubital; 16:20 Follow up: Response: No adverse reaction; Marked relief of symptoms 4 18:43 Drug: Acetaminophen PO 1000 mg PO once Route: PO; jb4 19:13 Follow up: Response: No adverse reaction 4 18:43 Drug: Cefepime IVPB 2 grams IVPB at 200 ml/hr once over 30 mins; (mix in NS 100 mL) 4 Route: IVPB; Rate: 200 ml/hr; Infused Over: 30 mins; Site: right antecubital; 19:13 Follow up: Response: No adverse reaction; IV Status: Completed infusion; IV Intake: jb4 100ml 18:43 Drug: Boostrix Tdap IM 0.5 ml IM once; as a single dose Route: IM; Site: right deltoid; 4 19:52 Follow up: Response: No adverse reaction 4 18:43 Drug: morphine IVP or IV 4 mg IVP once over 4 mins Route: IVP; Infused Over: 4 mins; 4 Site: right antecubital; 19:13 Follow up: Response: No adverse reaction; Marked relief of symptoms; Pain is decreased; 4 RASS: Alert and Calm (0) 18:43 Drug: Ondansetron IVP 8 mg IVP once; over 2 minutes Route: IVP; Site: right antecubital;jb4 19:00 Follow up: Response: No adverse reaction; Marked relief of symptoms [facility] 18:43 Drug: NS 0.9% IV 500 ml 500 ml IV at 1 bolus once; to be given as a bolus over 30 jb4 minutes Volume: 500 ml; Route: IV; Rate: 1 bolus; Site: right antecubital; 19:13 Follow up: Response: No adverse reaction; IV Status: Completed infusion; IV Intake: jb4 500ml 19:18 Drug: vancoMYCIN IVPB 1.5 grams IVPB at calculated rate once Route: IVPB; Rate: jb4 calculated rate; Site: right antecubital; 19:53 Follow up: IV Status: Infusion continued upon admission jb4 19:18 Drug: NS 0.9% IV 1000 ml IV at 125 ml/hr Per protocol Route: IV; Rate: 125 ml/hr; Site: jb4 right antecubital; 19:50 Follow up: Response: No adverse reaction; IV Status: Infusion continued upon admission jb4 Intake: 16:21 IV: 500ml; Total: 500ml. jb4 19:13 IV: 500ml; Total: 1000ml. jb4 19:13 IV: 100ml; Total: 1100ml. jb4 Outcome: 17:45 Decision to Hospitalize by Provider. namrata 20:34 Admitted to Tele accompanied by nurse, via stretcher, room 413, with chart, jb4 20:34 Condition: stable 20:34 Discharge instructions given to patient, Instructed on the need for admit, Demonstrated understanding of instructions, 20:34 Patient left the ED. jb4 Signatures: Dispatcher [employer] EDMS Fanny Dominguez Corey, MD MD cha Bryson, James RN RN jb4 Yajaira Arevalo RN RN ll1 Sandhya Sanchez rv1 ANIL RAMON RN RN dd2 Ainsley Guzman cj3 Corrections: (The following items were deleted from the chart) 13:54 13:53 Pain: Complains of pain in abdomen dd2 dd2 13:54 13:53 GI: Reports lower abdominal pain, upper abdominal pain, cramping, dd2 dd2 20:32 15:30 Reassessment: Patient appears in no apparent distress at this time. Patient jb4 and/or family updated on plan of care and expected duration. Pain level reassessed. Patient is alert, oriented x 3, equal unlabored respirations, skin warm/dry/pink. ll1 20:34 20:33 [facility] ED Fall Risk Assessment (Adult) History of falling in the last 3 months, jb4 including since admission No falls in past 3 months (0 pts) Confusion or Disorientation No (0 pts) Intoxicated or Sedated No (0 pts) Impaired Gait No (0 pts) Mobility Assist Device Used No (0 pt) Altered Elimination No (0 pt) Score/Fall Risk Level 0 - 2 = Low Risk Oriented to surroundings, Maintained a safe environment, jb4
[2025-05-09] MEDS ORDERED: ACETAMINOPHEN 500 MG TAB ONE (18:30)
[2025-05-09] MEDS ORDERED: MORPHINE 4 MG/ML SYR ONE (18:30)
[2025-05-09] MEDS ORDERED: ONDANSETRON 4 MG/2 ML VIAL ONE (18:30)
[2025-05-09] MEDS ORDERED: CEFEPIME 2 GM VIAL ONE (18:31)
[2025-05-09] MEDS ORDERED: NA CHLORIDE 0.9% 100 ML ONE (18:31)
[2025-05-09] MEDS ORDERED: TDAP (DIPHTH,PERTUSS(ACELL),TET VAC) 0.5 ML VIAL IMVAC ONE (18:31)
[2025-05-09] MEDS ORDERED: ACETAMINOPHEN 325 MG TABLET PO PRN (18:41)
--- NOTE | 2025-05-09 18:41 | P.HP ---
Certification for Inpatient Patient admitted to: Inpatient With expected LOS: >2 Midnights Practitioner: I am a practitioner with admitting privileges, knowledge of patient current condition, hospital course, and medical plan of care. Services: Services provided to patient in accordance with Admission requirements found in Title 42 Section 412.3 of the Code of Federal Regulations Patient History Date of Service: 05/09/25 Reason for admission: Diabetic Foot History of Present Illness: 59 yrs old Male with past medical history of diabetes mellitus, hypertension, anxiety/depression, CHF, morbid obesity neuropathy, left foot wound, cirrhosis liver, peripheral vascular disease, history of stroke, history of gastric bypass was brought to ER With pain and swelling on the lateral aspect of right foot and dorsum of right foot. Denies any trauma. Pain is worse when ambulates. Started 5 days ago and has been progressively getting worse and was brought to ER. Patient was assessed in the ER and was admitted for further management of right foot cellulitis. Allergies ciprofloxacin Allergy (Unknown, Verified 05/04/25 12:53) Hives/Rash Penicillins Adverse Reaction (Mild, Verified 05/04/25 12:53) Shortness of breath aspirin Adverse Reaction (Unknown, Verified 05/04/25 12:53) Shortness of breath flu vaccine Adverse Reaction (Unknown, Uncoded 05/04/25 12:54) extreme sore throat, chronic cough Home medications list reviewed: Yes Home Medications: Metformin HCl 1,000 mg PO BID 09/26/20 PARoxetine HCL [Paroxetine HCl] 40 mg PO DAILY 09/26/20 lisinopriL [Lisinopril] 20 mg PO BID 11/27/21 Atorvastatin Calcium 20 mg PO DAILY 01/23/24 Furosemide [Lasix] 40 mg PO DAILY 01/23/24 hydroCHLOROthiazide [Hydrochlorothiazide*] 12.5 mg PO DAILY 02/03/24 Meclizine HCl 25 mg PO Q12HP PRN 05/06/24 Potassium Chloride [Klor-Con 10] 10 meq PO BID 05/06/24 Pantoprazole [Protonix Tab*] 40 mg PO BIDAC #60 tab 01/12/25 Pregabalin [Lyrica] 50 mg PO BEDTIME 05/09/25 - Past Medical/Surgical History Diabetic: Yes Past Medical History: Reviewed- Non-Contributory -: Hypertension -: Peripheral vascular disease -: Diabetes mellitus type 2 -: Morbid obesity -: Hyperlipidemia -: Depression -: Obstructive sleep apnea -: Cirrhosis - fatty liver -: Diabetic neuropathy -: Venous insufficiency -: CVA Past Surgical History: Reviewed- Non-Contributory -: Gastric bypass -: Bilateral knee surgery -: "venous reflux" had small veins closed "years ago" -: left great toe shaved -: Left second toe amputation Psychosocial/ Personal History: The patient lives with his brother. He has no children. He is disabled. - Family History Family History: Reviewed- Non-Contributory - Family History Father -: Hypertension, Stroke Notes: Mother -: Stroke - Social History Smoking Status: Never smoker Alcohol use: No CD- Drugs: No Caffeine use: No Review of Systems 10-point ROS is otherwise unremarkable Physical Examination - Physical Exam General: Alert, Oriented x3, Obese HEENT: Atraumatic, Normocephalic Neck: Supple Respiratory: Clear to auscultation bilaterally, Normal air movement Cardiovascular: Regular rate/rhythm, Normal S1 S2, Edema Capillary refill: <2 Seconds Gastrointestinal: Soft and benign, W/out hepatosplenomegaly Musculoskeletal: No clubbing, Swelling Integumentary: No rashes, Tenderness/swelling, Erythema Neurological: Other (Alert awake nonfocal) Lymphatics: No axilla or inguinal lymphadenopathy - Studies Laboratory Data (last 24 hrs) 05/09/25 05/09/25 05/09/25 15:12 15:12 15:12 WBC 4.80 Hgb 8.6 L Hct 27.4 L Plt Count 142 L PT 15.5 H INR 1.38 Sodium 137 Potassium 3.8 BUN 10 Creatinine 0.63 L Glucose 139 H Magnesium 1.8 Total Bilirubin 2.9 H AST 26 ALT 15 L Alkaline Phosphatase 90 Lipase 10 L Assessment and Plan - Plan Right foot cellulitis To treat of diabetic foot Pain control Started on IV antibiotic X-ray findings noted Will get a surgical consult in a.m. Hypertension Antihypertensives titrated Continue home medications and titrate as needed Hyperlipidemia Continue statin Diabetes Insulin sliding scale Accu-Chek before every meal and at bedtime Anemia of chronic disease Monitor H&H closely No overt bleeding at this time Morbid obesity Advise lifestyle modification CHF Cirrhosis liver Anasarca Started on IV diuresis Continue home medications and titrate as needed GI/DVT prophylaxis Advanced directive full code Discharge Plan: Home Plan to discharge in: 48 Hours - Advance Directives Does patient have a Living Will: No Does patient have a Durable POA for Healthcare: No - Code Status/Comfort Care Code Status: Full Code Time Spent Managing Pts Care (In Minutes): 48
[2025-05-09] MEDS ORDERED: VANCOMYCIN 500 MG/VIAL ONE (18:58)
[2025-05-09] MEDS ORDERED: VANCOMYCIN 1 GM/VIAL ONE (18:59)
[2025-05-09] MEDS ORDERED: NA CHLORIDE 0.9% 1,000 ML ONE (18:59)
[2025-05-09] MEDS ORDERED: VANCOMYCIN 1 GM in NA CHLORIDE 0.9% 250 ML IVPB SCH (19:00)
--- NOTE | 2025-05-09 19:12 | RAD REPORT ---
EXAM: Foot Right 3 View HISTORY: PAIN COMPARISON: None FINDINGS: Bones: Fifth proximal phalanx at the proximal metaphysis is not well assessed. Difficult to exclude f racture at this location. No other fractures seen. Alignment:No significant malalignment. Degenerative changes:Plantar and dorsal aspect calcaneal spurs. Other: n/a IMPRESSION: No definite acute osseous abnormality. Fifth proximal phalanx fracture not well assessed. Difficult t o exclude a fracture at this location. Correlate with site of pain.
[2025-05-09] MEDS: VANCOMYCIN 500 MG in NA CHLORIDE 0.9% 100 ML IVPB ONE (21:55)
[2025-05-10] MEDS: HYDROCODONE/APAP 5/325 MG TAB PO PRN (04:47)
[2025-05-10 05:31] LABS: Absolute Lymphocytes (CBC) 0.6 K/uL (0.7-4.9); Hematocrit 28.0 % (39.6-49.0); Hemoglobin 8.7 g/dL (13.6-17.9); MCH 23.4 pg (27.0-35.0); MCHC 31.0 g/dL (32.0-36.0); MCV 75.4 fL (80-100); MPV 7.9 fL (7.6-11.3); Nucleated RBC Absolute Count 0.0 (0-0); Nucleated Red Blood Cells % 0.0 % (0-0); RBC Red Blood Cell Count 3.71 M/uL (4.33-5.43); White Blood Count 4.30 thou/uL (4.3-10.9)
[2025-05-10 06:13] LABS: AST/SGOT 25 U/L (15-37); Albumin 2.2 g/dL (3.4-5.0); Albumin/Globulin Ratio 0.5 (1.1-1.8); Alkaline Phosphatase 88 U/L (45-117); Anion Gap 5.9 mEq/L (5.0-15.0); BUN Blood Urea Nitrogen 9 mg/dL (7-18); Globulin 4.4 g/dL (2.3-3.5); Glucose Level 136 mg/dL (74-106); Potassium 3.9 mEq/L (3.5-5.1)
[2025-05-10 06:16] LABS: ALT/SGPT < 14 U/L (16-61)
--- NOTE | 2025-05-10 07:05 | P.PN ---
Date of Service: 05/10/25 Subjective: He was unable to complete MRI of the foot or CT scan. He endorses pain over the left foot. He denies fevers and chills Review of Systems 10-point ROS is otherwise unremarkable Physical Examination - Physical Exam General: Alert, Oriented x3, Obese HEENT: Atraumatic, Normocephalic Neck: Supple Respiratory: Clear to auscultation bilaterally, Normal air movement Cardiovascular: Regular rate/rhythm, Normal S1 S2, Edema Capillary refill: <2 Seconds Gastrointestinal: Soft and benign, W/out hepatosplenomegaly Musculoskeletal: No clubbing, Swelling Integumentary: No rashes, Tenderness/swelling, Erythema Neurological: Other (Alert awake nonfocal) Lymphatics: No axilla or inguinal lymphadenopathy - Studies Laboratory Data (last 24 hrs) 05/09/25 05/09/25 05/09/25 15:12 15:12 15:12 WBC 4.80 Hgb 8.6 L Hct 27.4 L Plt Count 142 L PT 15.5 H INR 1.38 Sodium 137 Potassium 3.8 BUN 10 Creatinine 0.63 L Glucose 139 H Magnesium 1.8 Total Bilirubin 2.9 H AST 26 ALT 15 L Alkaline Phosphatase 90 Lipase 10 L Assessment and Plan Right foot cellulitis Diabetic foot ulcer Continue IV aztreonam and vancomycin Wound cultures pending X-ray findings noted, unable to complete CT or MRI due to weight and claustrophobia Appreciate general surgery recommendations Wound care consult Increased pain control: Continue Walton and increase morphine to 4 mg IV every 6 as needed CHF Cirrhosis liver Anasarca Started on IV diuresis Continue home medications and titrate as needed Hypertension Antihypertensives titrated Continue home medications and titrate as needed Hyperlipidemia Continue statin Diabetes Insulin sliding scale Accu-Chek before every meal and at bedtime Anemia of chronic disease Monitor H&H closely No overt bleeding at this time Morbid obesity Advise lifestyle modification Hypomagnesemia Magnesium repletion per protocol DVT prophylaxis with Lovenox Advanced directive full code Discharge Plan: Home Plan to discharge in: 48 Hours - Advance Directives Does patient have a Living Will: No Does patient have a Durable POA for Healthcare: No - Code Status/Comfort Care Code Status: Full Code Time Spent Managing Pts Care (In Minutes): 48
[2025-05-10] MEDS: VANCOMYCIN 2 GM in NA CHLORIDE 0.9% 500 ML IVPB SCH (09:19)
[2025-05-10] MEDS: ENOXAPARIN 40 MG/0.4 ML SQ SCH (09:19)
[2025-05-10] MEDS: MAGNESIUM SULFATE 1 gm IVPB 1 GM/100 ML BAG IV ONE (09:22)
[2025-05-10] MEDS: MORPHINE 2 MG/ML SYR IV PRN (12:49)
[2025-05-10] MEDS: AZTREONAM 1 GM in NA CHLORIDE 0.9% 100 ML IV SCH (21:00)
[2025-05-11] MEDS: MORPHINE 4 MG/ML SYR IV PRN (01:57)
[2025-05-11] MEDS: ONDANSETRON 4 MG/2 ML VIAL IV PRN (01:57)
[2025-05-11 07:48] LABS: Absolute Lymphocytes (CBC) 0.6 K/uL (0.7-4.9); Hematocrit 24.6 % (39.6-49.0); Hemoglobin 7.7 g/dL (13.6-17.9); MCH 23.7 pg (27.0-35.0); MCHC 31.3 g/dL (32.0-36.0); MCV 75.6 fL (80-100); MPV 7.8 fL (7.6-11.3); Nucleated RBC Absolute Count 0.0 (0-0); Nucleated Red Blood Cells % 0.0 % (0-0); RBC Red Blood Cell Count 3.25 M/uL (4.33-5.43); White Blood Count 5.10 thou/uL (4.3-10.9)
[2025-05-11 07:57] LABS: Anion Gap 6.8 mEq/L (5.0-15.0); BUN Blood Urea Nitrogen 13.0 mg/dL (7-18); Glucose Level 134.0 mg/dL (74-106); Magnesium 1.9 mg/dL (1.6-2.4); Potassium 3.8 mEq/L (3.5-5.1)
[2025-05-11] MEDS: COLLAGENASE 30 GM OINTMENT TOP SCH (08:14)
--- NOTE | 2025-05-11 10:34 | RAD REPORT ---
EXAM: Right upper quadrant ultrasound. CLINICAL HISTORY: Assess need for paracentesis. Ascites volume COMPARISON: None. FINDINGS: Small volume of ascites seen in the right lower quadrant. Moderate volume of ascites seen in the left lower quadrant.
--- NOTE | 2025-05-11 15:23 | P.PN ---
Date of Service: 05/11/25 Subjective: He was unable to complete MRI of the foot or CT scan. He endorses pain over the left foot. He denies fevers and chills Review of Systems 10-point ROS is otherwise unremarkable Physical Examination - Physical Exam General: Alert, Oriented x3, Obese HEENT: Atraumatic, Normocephalic Neck: Supple Respiratory: Clear to auscultation bilaterally, Normal air movement Cardiovascular: Regular rate/rhythm, Normal S1 S2, Edema Capillary refill: <2 Seconds Gastrointestinal: Soft and benign, W/out hepatosplenomegaly Musculoskeletal: No clubbing, Swelling Integumentary: No rashes, Tenderness/swelling, Erythema Neurological: Other (Alert awake nonfocal) Lymphatics: No axilla or inguinal lymphadenopathy - Studies Laboratory Data (last 24 hrs) 05/09/25 05/09/25 05/09/25 15:12 15:12 15:12 WBC 4.80 Hgb 8.6 L Hct 27.4 L Plt Count 142 L PT 15.5 H INR 1.38 Sodium 137 Potassium 3.8 BUN 10 Creatinine 0.63 L Glucose 139 H Magnesium 1.8 Total Bilirubin 2.9 H AST 26 ALT 15 L Alkaline Phosphatase 90 Lipase 10 L Assessment and Plan Right foot cellulitis Diabetic foot ulcer Consult infectious disease for IV IV antibiotic manage Continue IV aztreonam and vancomycin Wound cultures pending X-ray findings noted, unable to complete CT or MRI due to weight and claustrophobia Appreciate general surgery recommendations Wound care consult Increased pain control: Continue Bryant and increase morphine to 4 mg IV every 6 as needed CHF Cirrhosis liver Anasarca Abdominal ultrasound with moderate ascites Consult radiology for paracentesis Add 40 mg IV Lasix and 50 mg p.o. spironolactone Continue home medications and titrate as needed Hypertension Antihypertensives titrated Continue home medications and titrate as needed Hyperlipidemia Continue statin Diabetes Insulin sliding scale Accu-Chek before every meal and at bedtime Anemia of chronic disease Hemoglobin stable at 7.7 today Monitor H&H closely No overt bleeding at this time Morbid obesity Advise lifestyle modification Hypomagnesemia Magnesium repletion per protocol DVT prophylaxis with Lovenox Advanced directive full code Discharge Plan: Home Plan to discharge in: - Advance Directives Does patient have a Living Will: No Does patient have a Durable POA for Healthcare: No - Code Status/Comfort Care Code Status: Full Code Time spent on the encounter, including patient evaluation, history taking, physical exam, medical decision making, coordination of care, and documentation, was 35 minutes. Time includes direct [id number] interaction with the patient and indirect time spent reviewing records, ordering tests, and discussing the care plan.
[2025-05-12] MEDS: SPIRONOLACTONE 25 MG TABLET PO SCH (09:32)
[2025-05-12 09:39] LABS: PT Prothrombin Time 15.0 SECONDS (10-13.0); Protime INR 1.34
[2025-05-12 10:04] LABS: Absolute Lymphocytes (CBC) 0.7 K/uL (0.7-4.9); Hematocrit 26.2 % (39.6-49.0); Hemoglobin 8.2 g/dL (13.6-17.9); MCH 23.6 pg (27.0-35.0); MCHC 31.2 g/dL (32.0-36.0); MCV 75.6 fL (80-100); MPV 8.1 fL (7.6-11.3); Nucleated RBC Absolute Count 0.0 (0-0); Nucleated Red Blood Cells % 0.0 % (0-0); RBC Red Blood Cell Count 3.47 M/uL (4.33-5.43); White Blood Count 5.20 thou/uL (4.3-10.9)
[2025-05-12 10:15] LABS: ALT/SGPT 15.0 U/L (16-61); AST/SGOT 24.0 U/L (15-37); Albumin 2.2 g/dL (3.4-5.0); Albumin/Globulin Ratio 0.5 (1.1-1.8); Alkaline Phosphatase 83.0 U/L (45-117); Anion Gap 5.9 mEq/L (5.0-15.0); BUN Blood Urea Nitrogen 13.0 mg/dL (7-18); Globulin 4.8 g/dL (2.3-3.5); Glucose Level 147.0 mg/dL (74-106); Potassium 3.9 mEq/L (3.5-5.1)
[2025-05-12] MEDS: FUROSEMIDE 40 MG/4 ML VIAL IV SCH ×2 (10:25→18:00)
[2025-05-12 12:49] VITALS: BMI 49.7
--- NOTE | 2025-05-12 16:53 | P.PN ---
Date of Service: 05/12/25 Subjective: He is concerned why he has not received his paracentesis yet. That is scheduled for today. He is complaining of a large amount of fluid buildup and removing 6 L of fluid is not enough for him. We discussed watching his sodium and fluid intake as well as increasing his diuretics. I counseled him on large fluid shifts and the detriment to the hemodynamics of his cardiovascular system. He denies fevers and chills. We discussed getting a bone scan to further rule out osteomyelitis Review of Systems 10-point ROS is otherwise unremarkable Physical Examination - Physical Exam General: Alert, Oriented x3, Obese HEENT: Atraumatic, Normocephalic Neck: Supple Respiratory: Clear to auscultation bilaterally, Normal air movement Cardiovascular: Regular rate/rhythm, Normal S1 S2, Edema Capillary refill: <2 Seconds Gastrointestinal: Soft and benign, W/out hepatosplenomegaly Musculoskeletal: No clubbing, Swelling Integumentary: No rashes, Tenderness/swelling, Erythema Neurological: Other (Alert awake nonfocal) Lymphatics: No axilla or inguinal lymphadenopathy - Studies Laboratory Data (last 24 hrs) 05/09/25 05/09/25 05/09/25 15:12 15:12 15:12 WBC 4.80 Hgb 8.6 L Hct 27.4 L Plt Count 142 L PT 15.5 H INR 1.38 Sodium 137 Potassium 3.8 BUN 10 Creatinine 0.63 L Glucose 139 H Magnesium 1.8 Total Bilirubin 2.9 H AST 26 ALT 15 L Alkaline Phosphatase 90 Lipase 10 L Assessment and Plan Right foot cellulitis Diabetic foot ulcer Consult infectious disease for IV antibiotic management Continue IV aztreonam and vancomycin Wound cultures pending X-ray findings noted, unable to complete CT or MRI due to weight and claustrophobia Appreciate general surgery recommendations Wound care consult Increased pain control: Continue [place] and increase morphine to 4 mg IV every 6 as needed Bone scan pending CHF Cirrhosis liver Anasarca Abdominal ultrasound with moderate ascites Consult radiology for paracentesis Increase Lasix to 40 mg twice daily and increase to 100 mg p.o. spironolactone Continue home medications and titrate as needed Hypertension Antihypertensives titrated Continue home medications and titrate as needed Hyperlipidemia Continue statin Diabetes Insulin sliding scale Accu-Chek before every meal and at bedtime Anemia of chronic disease Hemoglobin stable at 7.7 today Monitor H&H closely No overt bleeding at this time Morbid obesity Advise lifestyle modification Hypomagnesemia Magnesium repletion per protocol DVT prophylaxis with Lovenox Advanced directive full code Discharge Plan: Home Plan to discharge in: - Advance Directives Does patient have a Living Will: No Does patient have a Durable POA for Healthcare: No - Code Status/Comfort Care Code Status: Full Code Time spent on the encounter, including patient evaluation, history taking, physical exam, medical decision making, coordination of care, and documentation, was 45 minutes. Time includes direct [id number] interaction with the patient and indirect time spent reviewing records, ordering tests, and discussing the care plan.
[2025-05-12] MEDS: MUPIROCIN 2% OINT 22GM TUBE TOP SCH (19:56)
[2025-05-13] MEDS: SPIRONOLACTONE 100 MG TAB PO SCH (08:42)
--- NOTE | 2025-05-13 11:19 | RAD REPORT ---
PROCEDURE: ULTRASOUND GUIDED PARACENTESIS Procedural Provider: Srinivas Branham M.D. Pre-procedure diagnosis: Ascites Post-procedure diagnosis: Same as above. CLINICAL INDICATION: Uncomplicated ascites. Male, 59 years old. Drain ascites volume COMPLICATIONS: No immediate complications. IMPRESSION: Ultrasound guided paracentesis, yielding 6000 mL of straw-colored fluid. PLAN: Aspirated fluid was not sent for analysis. PROCEDURE DETAILS: Consent: Informed consent for the procedure including risks, benefits and alternatives was obtained a nd time-out was performed prior to the procedure. Preparation: The site was prepared and draped using maximal sterile barrier technique including cutan eous antisepsis. Sedation: None Procedure: Initial limited abdominal ultrasound was performed and a large amount of ascites was seen. A safe window for paracentesis was identified with ultrasound to rd a suitable access site. Local anesthesia was administered. The peritoneal cavity was accessed, and fluid return confirmed pos ition. A catheter was placed and ascites was drained. The catheter was removed, and a sterile bandage was applied. [id number]. Estimated blood loss: Less than 10 mL.
--- NOTE | 2025-05-13 14:23 | P.PN ---
Date of Service: 05/13/25 subjective: VS stable. denied NVD. had paracentesis today. removed 6 L fluids. wbc wnl objective Temp Pulse Resp BP Pulse Ox 98.8 F 89 18 125/63 91 05/13/25 12:00 05/13/25 12:00 05/13/25 12:00 05/13/25 12:00 05/13/25 12:00 - Physical Exam General: Alert, Oriented x3, morbid Obese HEENT: Atraumatic, Normocephalic, PERRLA Neck: Supple Respiratory: Clear to auscultation Cardiovascular: Regular rate/rhythm, Normal S1 S2, Edema Capillary refill: <2 Seconds Gastrointestinal: Soft, BS present, ND, some mild discomfort on palpation Integumentary: right foot wound with dressing. right toe erythema and swelling labs: wbc 5.1,hgb 8.2, plt count 132, bun 13, cr 0.84, albumin 2.2 assessment and planning right foot cellulitis diabetic foot ulcer thrombocytopenia CHF cirrhosis liver diabetes anemia of chronic disease peripheral vascular disease wound culture grew MRSA. continue vancomycin. bone scan pending recommend local wound care to right foot per surgeon will continue to monitor infection with wbc and fever trend case discussed and in agreement with Dr Long
[2025-05-13] MEDS ORDERED: GLUCAGON 1 MG/VIAL IM PRN (17:56)
[2025-05-13] MEDS ORDERED: D10W 125 ML IV PRN (17:56)
--- NOTE | 2025-05-13 17:57 | P.PN ---
Subjective Date of Service: 05/13/25 Chief Complaint: Diabetic Foot Patient complained of pain in his abdomen. Status post paracentesis today and 6 L of fluid was drained. Physical Examination - Vital Signs Temperature: 98.2 F Blood Pressure: 136/69 Pulse: 95 Respirations: 18 Pulse Ox (%): 91 Assessment And Plan - Plan Physical examination General: Alert and oriented x3, NAD, obese HEENT: Anicteric sclera Neck: Supple, no elevated JVD Heart: Heart sounds 1 and 2 normal, regular rhythm, normal rate, no pedal edema Lungs diminished bilaterally, mild bibasilar rales, no rhonchi Abdomen: Soft, distended, nontender, normal bowel sounds. Extremities: No tenderness, no deformity Skin: Normal skin turgor, no rash, no nodules or ulcers. Neuro: No focal motor deficit. Normal speech. Psychiatry: Normal mood, no agitation. Plan: Right foot cellulitis Diabetic foot ulcer Infectious disease evaluated patient. MRSA is growing in the wound Continue IV aztreonam and vancomycin Patient unable to complete CT and MRI due to weight limit. X-ray of the foot shows no bony involvement. General Surgery input appreciated Continue wound care Bone scan to assess for osteomyelitis is pending. Analgesics as needed Chronic diastolic heart failure Cirrhosis liver Anasarca Abdominal ultrasound with moderate ascites Status post paracentesis, about 6 L of fluid drained Continue Lasix to 40 mg twice daily and spironolactone 100 mg daily Diabetes Insulin sliding scale Accu-Chek. Anemia of chronic disease Hemoglobin stable at 7.7 today Monitor H&H closely No melena. Transfuse as needed for hemoglobin less than 7 Morbid obesity Weight loss by diet and exercise advised Hypomagnesemia Magnesium repletion per protocol DVT prophylaxis with Lovenox Advanced directive full code
[2025-05-13] MEDS: INSULIN REGULAR (HUMAN) 100 UNIT/ML SQ SCH (21:08)
--- NOTE | 2025-05-13 22:21 | CON ---
Date of Consultation: 05/12/2025 History Of Present Illness: I was consulted for right foot diabetic foot ulcer. The patient coming to the hospital with past medical history of diabetes mellitus, diabetic neuropathy, hypertension, an xiety, depression, congestive heart failure, morbid obesity, neuropathy, left foot wound, cirrhosis o f liver, peripheral vascular disease, history of stroke, and gastric bypass, came to the emergency ro om with swelling in the left lateral aspect of the right foot. The patient was admitted for further investigation and admitted for cellulitis of his foot. He was started on Azactam and vancomycin nat use of allergies to Cipro and penicillin. Past Medical History: As per HPI. Social History: Tobacco negative. Alcohol negative. Family History: Noncontributory. Medications: Azactam, vancomycin. See MARs for other medications. Allergies: PENICILLIN, CIPRO, ASPIRIN, FLU VACCINE. Review of Systems: A 10-point review of system was performed. Physical Examination: General: This is a 59-year-old male, lying in bed, not in any acute cardiopulmonary distress. Vital Signs: Temperature 98, pulse 94, respirations 16, blood pressure 117/58. HEENT: Unremarkable. Neck: Supple. Lungs: Basal crackles. Heart: S1, S2. Regular. Abdomen: Soft, nontender. Bowel sounds present. Extremities: Foot wound noted with erythematous changes on the medial aspect of the right foot and u lceration at the first metatarsal plantar area. Laboratory Data: Shows WBC 5.2, hemoglobin 8.2, platelets are 132. Chemistry shows BUN of 13, creat inine 0.8, albumin level is 2.2. Assessment And Plan: This is a 59-year-old male with significant history of diabetes mellitus and di abetic neuropathy, peripheral vascular disease. 1. Anemia of chronic disease. 2. Thrombocytopenia. 3. Moderate protein-calorie malnourishment. 4. Continue current antibiotic. We will follow the patient as needed. Thank you Dr. Rodriguez for consult. TOM/MARIANA Voice ID: [id number] Report ID: [id number]
[2025-05-14 06:26] LABS: Absolute Lymphocytes (CBC) 0.5 K/uL (0.7-4.9); Hematocrit 23.2 % (39.6-49.0); Hemoglobin 7.2 g/dL (13.6-17.9); MCH 23.5 pg (27.0-35.0); MCHC 31.1 g/dL (32.0-36.0); MCV 75.5 fL (80-100); MPV 7.5 fL (7.6-11.3); Nucleated RBC Absolute Count 0.0 (0-0); Nucleated Red Blood Cells % 0.0 % (0-0); RBC Red Blood Cell Count 3.07 M/uL (4.33-5.43); White Blood Count 3.50 thou/uL (4.3-10.9)
[2025-05-14 07:39] LABS: AST/SGOT 22 U/L (15-37); Albumin 1.8 g/dL (3.4-5.0); Albumin/Globulin Ratio 0.5 (1.1-1.8); Alkaline Phosphatase 72 U/L (45-117); Anion Gap 7.9 mEq/L (5.0-15.0); BUN Blood Urea Nitrogen 12 mg/dL (7-18); Globulin 3.9 g/dL (2.3-3.5); Glucose Level 143 mg/dL (74-106); Potassium 3.9 mEq/L (3.5-5.1)
[2025-05-14 07:44] LABS: ALT/SGPT < 14 U/L (16-61)
[2025-05-14 10:51] LABS: White Blood Cell Scan OK (OK)
[2025-05-14 10:52] LABS: Anisocytosis 1+; Blood Morphology Comment NOTED (NOT SEEN); Hypochromasia 1+; Microcytosis 1+; Polychromasia SLIGHT
--- NOTE | 2025-05-14 14:00 | P.PN ---
Subjective Date of Service: 05/14/25 Chief Complaint: Diabetic Foot Patient has no new complaints today. No recorded fever. He denies shortness of breath. Physical Examination - Vital Signs Temperature: 97.6 F Blood Pressure: 127/63 Pulse: 87 Respirations: 16 Pulse Ox (%): 93 Assessment And Plan - Plan Physical examination General: Alert and oriented x3, NAD, obese HEENT: Anicteric sclera Neck: Supple, no elevated JVD Heart: Heart sounds 1 and 2 normal, regular rhythm, normal rate, no pedal edema Lungs diminished bilaterally, mild bibasilar rales, no rhonchi Abdomen: Soft, distended, nontender, normal bowel sounds. Skin: Normal skin turgor, right foot sole wound, improving cellulitis on the dorsum of the right foot. Neuro: No focal motor deficit. Normal speech. Psychiatry: Normal mood, no agitation. Plan: Right foot cellulitis Diabetic foot ulcer Infectious disease evaluated patient. MRSA is growing in the wound Continue IV aztreonam and vancomycin Patient unable to complete CT and MRI due to weight limit. X-ray of the foot shows no bony involvement. General Surgery input appreciated Continue wound care Bone scan to assess for osteomyelitis is pending. Analgesics as needed Chronic diastolic heart failure Cirrhosis liver Anasarca Abdominal ultrasound with moderate ascites Status post paracentesis, about 6 L of fluid drained Continue Lasix to 40 mg twice daily and spironolactone 100 mg daily Diabetes Insulin sliding scale Accu-Chek. Anemia of chronic disease Hemoglobin stable at 7.7 today Monitor H&H closely No melena. Transfuse as needed for hemoglobin less than 7 Morbid obesity Weight loss by diet and exercise advised Hypomagnesemia Magnesium repletion per protocol 05/14 Infectious disease input appreciated. IV antibiotics came down to IV vancomycin. Bone scan is pending Duration of antibiotics per infectious disease. Right foot cellulitis is improving, wound looks clean. General surgery Dr. Ny is following and managing the foot ulcer. Continue wound care Serial abdominal examination. May repeat paracentesis on Friday if abdominal still looks distended. Continue Lasix and Aldactone Monitor H&H and transfuse as needed for hemoglobin less than 7. DVT prophylaxis: SCD Advanced directive full code
[2025-05-14] MEDS: BISACODYL E.C. 5 MG TAB PO ONE (14:02)
--- NOTE | 2025-05-14 17:07 | PN ---
Subjective: The patient lying in bed. No new acute event. Chart reviewed. Objective: Vital Signs: Temperature 97, pulse 87, respirations 16, blood pressure 137/63. Lungs: Basal crackles. Heart: S1, S2. Regular. Abdomen: Soft, nontender. Bowel sounds present. Extremities: Trace edema. Wound noted. Laboratory Data: WBC 3.5, hemoglobin 7.2, platelets 109, BUN of 12, creatinine of 0.8. Foot culture s are growing MRSA. Patient is currently on vancomycin. Assessment And Plan: 1. Methicillin-resistant Staphylococcus aureus cellulitis of the right foot with diabetic foot ulcer. 2. Pancytopenia. 3. Congestive heart failure. 4. Cirrhosis of liver. 5. Severe protein-calorie malnourishment. Continue supportive care and antibiotic. We will follow the patient as needed. NF/MODL Voice ID: [id number] Report ID: [id number]
[2025-05-15 06:16] LABS: AST/SGOT 23 U/L (15-37); Albumin 1.8 g/dL (3.4-5.0); Albumin/Globulin Ratio 0.5 (1.1-1.8); Alkaline Phosphatase 78 U/L (45-117); Anion Gap 7.9 mEq/L (5.0-15.0); BUN Blood Urea Nitrogen 13 mg/dL (7-18); Globulin 4.0 g/dL (2.3-3.5); Glucose Level 138 mg/dL (74-106); Potassium 3.9 mEq/L (3.5-5.1)
[2025-05-15 06:24] LABS: ALT/SGPT < 14 U/L (16-61)
[2025-05-15] MEDS: VANCOMYCIN 2 GM in NA CHLORIDE 0.9% 500 ML IVPB SCH (08:42)
[2025-05-15 11:10] LABS: Absolute Lymphocytes (CBC) 0.5 K/uL (0.7-4.9); Hematocrit 25.1 % (39.6-49.0); Hemoglobin 7.7 g/dL (13.6-17.9); MCH 23.1 pg (27.0-35.0); MCHC 30.8 g/dL (32.0-36.0); MCV 75.0 fL (80-100); MPV 7.6 fL (7.6-11.3); Nucleated RBC Absolute Count 0.0 (0-0); Nucleated Red Blood Cells % 0.0 % (0-0); RBC Red Blood Cell Count 3.34 M/uL (4.33-5.43); White Blood Count 3.70 thou/uL (4.3-10.9)
[2025-05-15 11:32] LABS: Anion Gap 8.6 mEq/L (5.0-15.0); BUN Blood Urea Nitrogen 12.0 mg/dL (7-18); Glucose Level 156.0 mg/dL (74-106); Potassium 3.6 mEq/L (3.5-5.1)
[2025-05-15 12:27] LABS: Anisocytosis 1+; Blood Morphology Comment NOTED (NOT SEEN); Hypochromasia 2+; Ovalocytes SLIGHT; Polychromasia 1+; White Blood Cell Scan OK (OK)
[2025-05-15 12:28] LABS: Stomatocytes 1+
[2025-05-15] MEDS: POTASSIUM CL SA 10 MEQ TAB PO ONE (16:05)
--- NOTE | 2025-05-15 16:08 | P.PN ---
Subjective Date of Service: 05/15/25 Chief Complaint: Diabetic Foot Patient is complaining of constipation. He also complains of abdominal pain. BMs No recorded fever. He denies shortness of breath. Physical Examination - Vital Signs Temperature: 98.4 F Blood Pressure: 145/63 Pulse: 88 Respirations: 16 Pulse Ox (%): 96 Assessment And Plan - Plan Physical examination General: Alert and oriented x3, NAD, obese HEENT: Anicteric sclera Neck: Supple, no elevated JVD Heart: Heart sounds 1 and 2 normal, regular rhythm, normal rate, no pedal edema Lungs diminished bilaterally, mild bibasilar rales, no rhonchi Abdomen: Soft, distended, nontender, normal bowel sounds. Skin: Right foot sole wound, improving cellulitis on the dorsum of the right foot. Neuro: No focal motor deficit. Normal speech. Psychiatry: Normal mood, no agitation. Plan: Right foot cellulitis Diabetic foot ulcer Infectious disease evaluated patient. MRSA is growing in the wound Continue IV aztreonam and vancomycin Patient unable to complete CT and MRI due to weight limit. X-ray of the foot shows no bony involvement. General Surgery input appreciated Continue wound care Bone scan to assess for osteomyelitis is pending. Analgesics as needed Chronic diastolic heart failure Cirrhosis liver Anasarca Abdominal ultrasound with moderate ascites Status post paracentesis, about 6 L of fluid drained Continue Lasix to 40 mg twice daily and spironolactone 100 mg daily Diabetes Insulin sliding scale Accu-Chek. Anemia of chronic disease Hemoglobin stable at 7.7 today Monitor H&H closely No melena. Transfuse as needed for hemoglobin less than 7 Morbid obesity Weight loss by diet and exercise advised Hypomagnesemia Magnesium repletion per protocol 05/14 Infectious disease input appreciated. IV antibiotics came down to IV vancomycin. Bone scan is pending Duration of antibiotics per infectious disease. Right foot cellulitis is improving, wound looks clean. General surgery Dr. Ny is following and managing the foot ulcer. Continue wound care Serial abdominal examination. May repeat paracentesis on Friday if abdominal still looks distended. Continue Lasix and Aldactone Monitor H&H and transfuse as needed for hemoglobin less than 7. 05/15 Functional constipation Continue IV vancomycin Local wound care Gram stain is pending. Dr. Ny is following. Repeat paracentesis tomorrow Continue Lasix and Aldactone Start MiraLAX and docusate for constipation DVT prophylaxis: SCD Advanced directive full code
[2025-05-15 16:38] LABS: Magnesium 1.8 mg/dL (1.6-2.4)
[2025-05-15] MEDS: MAGNESIUM SULFATE 1 gm IVPB 1 GM/100 ML BAG IV ONE (17:11)
[2025-05-15] MEDS: POTASS/SODIUM PHOSPHATE 1 PKT POWD.PACK PO SCH (17:12)
--- NOTE | 2025-05-15 20:33 | RAD REPORT ---
EXAM: Abdomen Exam Limited HISTORY: ASCITES CHECK COMPARISON: None TECHNIQUE: Limited abdominal ultrasound to assess fo ascites. IMPRESSION: Large volume of ascites identified in all 4 quadrants.
[2025-05-16 05:48] LABS: Absolute Lymphocytes (CBC) 0.5 K/uL (0.7-4.9); Hematocrit 24.5 % (39.6-49.0); Hemoglobin 7.8 g/dL (13.6-17.9); MCH 23.7 pg (27.0-35.0); MCHC 31.7 g/dL (32.0-36.0); MCV 74.7 fL (80-100); MPV 7.6 fL (7.6-11.3); Nucleated RBC Absolute Count 0.0 (0-0); Nucleated Red Blood Cells % 0.0 % (0-0); RBC Red Blood Cell Count 3.28 M/uL (4.33-5.43); White Blood Count 3.10 thou/uL (4.3-10.9)
[2025-05-16 06:06] LABS: PT Prothrombin Time 14.9 SECONDS (10-13.0); Protime INR 1.33
[2025-05-16 06:11] LABS: Anion Gap 6.5 mEq/L (5.0-15.0); BUN Blood Urea Nitrogen 11.0 mg/dL (7-18); Glucose Level 146.0 mg/dL (74-106); Potassium 3.5 mEq/L (3.5-5.1)
[2025-05-16] MEDS: POLYETHYL GLY 3350 17 GM/DOSE PO SCH (08:06)
[2025-05-16] MEDS: POTASSIUM CL SA 10 MEQ TAB PO ONE (08:06)
--- NOTE | 2025-05-16 11:08 | RAD REPORT ---
PROCEDURE: ULTRASOUND GUIDED PARACENTESIS Procedural Provider: Srinivas Branham M.D. Pre-procedure diagnosis: Ascites Post-procedure diagnosis: Same as above. CLINICAL INDICATION: Uncomplicated ascites. Male, 59 years old. Persistent ascites COMPLICATIONS: No immediate complications. IMPRESSION: Ultrasound guided paracentesis, yielding 6000 mL of straw-colored fluid. PLAN: Aspirated fluid was not sent for analysis. PROCEDURE DETAILS: Consent: Informed consent for the procedure including risks, benefits and alternatives was obtained a nd time-out was performed prior to the procedure. Preparation: The site was prepared and draped using maximal sterile barrier technique including cutan eous antisepsis. Sedation: None Procedure: Initial limited abdominal ultrasound was performed and a large amount of ascites was seen. A safe window for paracentesis was identified with ultrasound to rd a suitable access site. Local anesthesia was administered. The peritoneal cavity was accessed, and fluid return confirmed pos ition. A catheter was placed and ascites was drained. The catheter was removed, and a sterile bandage was applied. [id number]. Estimated blood loss: Less than 10 mL.
--- NOTE | 2025-05-16 14:30 | P.PN ---
Date of Service: 05/16/25 subjective: VS stable. denied NVD. had paracentesis today. removed 6 L fluids. wbc wnl objective Temp Pulse Resp BP Pulse Ox 97.9 F 92 H 16 125/91 H 97 05/16/25 12:00 05/16/25 12:00 05/16/25 12:00 05/16/25 12:00 05/16/25 12:00 - Physical Exam General: Alert, Oriented x3, morbid Obese HEENT: Atraumatic, Normocephalic, PERRLA Neck: Supple Respiratory: Clear to auscultation Cardiovascular: Regular rate/rhythm, Normal S1 S2, Edema Capillary refill: <2 Seconds Gastrointestinal: Soft, BS present, ND, some mild discomfort on palpation Integumentary: right foot wound with dressing. right toe erythema and swelling labs: wbc 3.1,hgb 7.8, plt count 128, bun 11, cr 0.9, albumin 1.8 assessment and planning right foot cellulitis diabetic foot ulcer thrombocytopenia CHF cirrhosis liver diabetes anemia of chronic disease peripheral vascular disease severe protein calorie malnourishment wound culture grew MRSA. continue vancomycin. order for bone scan pending recommend local wound care to right foot per surgeon will continue to monitor infection with wbc and fever trend case discussed and in agreement with Dr Long
[2025-05-16] MEDS: HYDROCODONE/APAP 7.5/325 MG TAB PO PRN (16:32)
[2025-05-16] MEDS: ENSURE MAX PROTEIN 330 ML LIQUID PO SCH (20:28)
--- NOTE | 2025-05-17 00:29 | P.PN ---
Date of Service: 05/16/25 Subjective Physical Examination - Vital Signs reviewed - Physical Exam Physical examination General: Alert and oriented x3, NAD, obese HEENT: Anicteric sclera Neck: Supple, no elevated JVD Heart: Heart sounds 1 and 2 normal, regular rhythm, normal rate, no pedal edema Lungs diminished bilaterally, mild bibasilar rales, no rhonchi Abdomen: Soft, distended, nontender, normal bowel sounds. Skin: Right foot sole wound, improving cellulitis on the dorsum of the right foot. Neuro: No focal motor deficit. Normal speech. Psychiatry: Normal mood, no agitation. Assessment And Plan - Assessment/Plan Assessment/Plan: Right foot cellulitis Diabetic foot ulcer Infectious disease evaluated patient. MRSA is growing in the wound Continue IV aztreonam and vancomycin Patient unable to complete CT and MRI due to weight limit. X-ray of the foot shows no bony involvement. General Surgery input appreciated Continue wound care Bone scan to assess for osteomyelitis is pending. Analgesics as needed Chronic diastolic heart failure Cirrhosis liver Anasarca Abdominal ultrasound with moderate ascites Status post paracentesis, about 6 L of fluid drained Continue Lasix to 40 mg twice daily and spironolactone 100 mg daily Diabetes Insulin sliding scale Accu-Chek. Anemia of chronic disease Hemoglobin stable at 7.7 today Monitor H&H closely No melena. Transfuse as needed for hemoglobin less than 7 Morbid obesity Weight loss by diet and exercise advised Hypomagnesemia Magnesium repletion per protocol 05/14 Infectious disease input appreciated. IV antibiotics came down to IV vancomycin. Bone scan is pending Duration of antibiotics per infectious disease. Right foot cellulitis is improving, wound looks clean. General surgery Dr. Ny is following and managing the foot ulcer. Continue wound care Serial abdominal examination. May repeat paracentesis on Friday if abdominal still looks distended. Continue Lasix and Aldactone Monitor H&H and transfuse as needed for hemoglobin less than 7. 05/15 Functional constipation Continue IV vancomycin Local wound care Gram stain is pending. Dr. Ny is following. Repeat paracentesis tomorrow Continue Lasix and Aldactone Start MiraLAX and docusate for constipation DVT prophylaxis: SCD Advanced directive full code
[2025-05-17] MEDS: MORPHINE 4 MG/ML SYR IV PRN (01:30)
[2025-05-17 04:31] LABS: Absolute Lymphocytes (CBC) 0.5 K/uL (0.7-4.9); Hematocrit 23.7 % (39.6-49.0); Hemoglobin 7.4 g/dL (13.6-17.9); MCH 23.4 pg (27.0-35.0); MCHC 31.3 g/dL (32.0-36.0); MCV 74.9 fL (80-100); MPV 7.5 fL (7.6-11.3); Nucleated RBC Absolute Count 0.0 (0-0); Nucleated Red Blood Cells % 0.1 % (0-0); RBC Red Blood Cell Count 3.17 M/uL (4.33-5.43); White Blood Count 3.10 thou/uL (4.3-10.9)
[2025-05-17 04:49] LABS: AST/SGOT 25 U/L (15-37); Albumin 1.8 g/dL (3.4-5.0); Albumin/Globulin Ratio 0.5 (1.1-1.8); Alkaline Phosphatase 83 U/L (45-117); Anion Gap 6.8 mEq/L (5.0-15.0); BUN Blood Urea Nitrogen 12 mg/dL (7-18); Globulin 4.0 g/dL (2.3-3.5); Glucose Level 175 mg/dL (74-106); Magnesium 1.8 mg/dL (1.6-2.4); Potassium 3.8 mEq/L (3.5-5.1)
[2025-05-17 04:53] LABS: ALT/SGPT < 14 U/L (16-61)
[2025-05-17] MEDS: MAGNESIUM SULFATE 1 gm IVPB 1 GM/100 ML BAG IV ONE (06:09)
[2025-05-17] MEDS: POTASSIUM CL SA 10 MEQ TAB PO ONE (06:09)
--- NOTE | 2025-05-17 08:08 | RAD REPORT ---
EXAM:Neck Soft Tissue CLINICAL HISTORY: Neck pain neck swelling. FINDINGS: Soft tissue swelling posterior neck. If patient's clinical symptoms to suggest an abscess and ultraso und would be recommended. Visualized airway unremarkable
--- NOTE | 2025-05-17 22:50 | PN ---
Subjective: The patient is lying in bed. No new acute event. Chart reviewed. Objective: Vital Signs: Reviewed. Lungs: Basal crackles. Heart: S1, S2. Regular. Abdomen: Soft, nontender. Bowel sounds present. Laboratory Data: Shows WBC 3.1, hemoglobin 7.4, platelets 122, BUN of 12, creatinine 0.8, albumin le leda is 1.8. Assessment And Plan: 1. Right foot MRSA infection, currently on vancomycin. 2. Diabetic foot ulcer. 3. Pancytopenia. 4. Liver cirrhosis. 5. Congestive heart failure. 6. Diabetes mellitus with diabetic neuropathy. 7. Peripheral vascular disease. 8. Severe protein-calorie malnourishment. Continue antibiotic and supportive care. We will follow t he patient as needed. NF/MODL Voice ID: [id number] Report ID: [id number]
[2025-05-18 06:06] LABS: Anion Gap 7.0 mEq/L (5.0-15.0); BUN Blood Urea Nitrogen 14.0 mg/dL (7-18); Glucose Level 163.0 mg/dL (74-106); Magnesium 1.9 mg/dL (1.6-2.4); Potassium 4.0 mEq/L (3.5-5.1)
--- NOTE | 2025-05-18 14:09 | P.PN ---
Date of Service: 05/18/25 subjective: VS stable. denied NVD. wbc wnl objective Temp Pulse Resp BP Pulse Ox 97.6 F 84 16 114/57 L 95 05/18/25 12:00 05/18/25 12:00 05/18/25 12:00 05/18/25 12:00 05/18/25 12:00 - Physical Exam General: Alert, Oriented x3, morbid Obese HEENT: Atraumatic, Normocephalic, PERRLA Neck: Supple Respiratory: Clear to auscultation Cardiovascular: Regular rate/rhythm, Normal S1 S2, Edema Capillary refill: <2 Seconds Gastrointestinal: Soft, BS present, ND, some mild discomfort on palpation Integumentary: right foot wound with dressing. right toe erythema and swelling labs: wbc 3.1,hgb 7.4, plt count 122, bun 14, cr 1, albumin 1.8 assessment and planning right foot cellulitis diabetic foot ulcer thrombocytopenia leukopenia CHF cirrhosis liver diabetes anemia of chronic disease peripheral vascular disease severe protein calorie malnourishment wound culture grew MRSA. continue vancomycin. Patient unable to complete CT and MRI due to weight limit. bone scan pending recommend local wound care to right foot per surgeon will continue to monitor infection with wbc and fever trend case discussed and in agreement with Dr Long
[2025-05-19 06:24] LABS: Absolute Lymphocytes (CBC) 0.5 K/uL (0.7-4.9); Hematocrit 25.2 % (39.6-49.0); Hemoglobin 8.0 g/dL (13.6-17.9); MCH 23.6 pg (27.0-35.0); MCHC 31.8 g/dL (32.0-36.0); MCV 74.1 fL (80-100); MPV 8.2 fL (7.6-11.3); Nucleated RBC Absolute Count 0.0 (0-0); Nucleated Red Blood Cells % 0.2 % (0-0); Percent Reticulocyte Count 1.20 % (0.4-2.05); RBC Red Blood Cell Count 3.40 M/uL (4.33-5.43); White Blood Count 3.10 thou/uL (4.3-10.9)
[2025-05-19 06:40] LABS: PT Prothrombin Time 14.9 SECONDS (10-13.0); PTT, Activated Partial Thromb 29.8 SECONDS (27.2-37.4); Protime INR 1.33
[2025-05-19 07:01] LABS: AST/SGOT 33 U/L (15-37); Albumin 2.1 g/dL (3.4-5.0); Albumin/Globulin Ratio 0.5 (1.1-1.8); Alkaline Phosphatase 105 U/L (45-117); Anion Gap 8.0 mEq/L (5.0-15.0); BUN Blood Urea Nitrogen 16 mg/dL (7-18); Globulin 4.5 g/dL (2.3-3.5); Glucose Level 147 mg/dL (74-106); Iron 25.0 ug/dL (65-175); Magnesium 1.5 mg/dL (1.6-2.4); Potassium 4.0 mEq/L (3.5-5.1)
[2025-05-19 07:05] LABS: ALT/SGPT < 14 U/L (16-61)
[2025-05-19 07:07] LABS: Anisocytosis 1+; Blood Morphology Comment NOTED (NOT SEEN); White Blood Cell Scan OK (OK)
[2025-05-19 07:08] LABS: Hypochromasia 1+; Macrocytosis SLIGHT; Microcytosis SLIGHT; Ovalocytes SLIGHT; Poikilocytosis 1+; Target Cells FEW
[2025-05-19] MEDS ORDERED: ONDANSETRON 4 MG/2 ML VIAL ONE (12:16)
[2025-05-19] MEDS ORDERED: FENTANYL CITR 100 MCG/2 ML ONE (12:16)
[2025-05-19] MEDS ORDERED: MIDAZOLAM HCL 2 MG/2 ML INJ ONE (12:16)
[2025-05-19] MEDS ORDERED: LIDOCAINE 2% MPF 5 ML VIAL ONE (12:16)
[2025-05-19] MEDS: NA CHLORIDE 0.9% 1,000 ML ONE (12:20)
[2025-05-19] MEDS: LIDOCAINE HCL/EPINEPHRINE 20 ML MDV ONE (12:21)
[2025-05-19] MEDS: SUCCINYLCHOLINE 20 MG/ML (10 ML) IV ONE (12:45)
[2025-05-19] MEDS ORDERED: ROCURONIUM 50 MG/5 ML VIAL IV ONE (12:51)
[2025-05-19] MEDS ORDERED: EPHEDRINE SULF 50 MG/ML VIAL ONE (13:04)
--- NOTE | 2025-05-19 13:44 | P.OP ---
Preoperative diagnosis: Posterior Neck Infected Sebacous Cyst Postoperative diagnosis: Posterior Neck Infected Sebacous Cyst Primary procedure: Wide Excision of Posterior Neck Infected Sebacous Cyst Anesthesia: GETA + Local Estimated blood loss: <5cc Specimen: Cultures, Debridement Tissue Findings: ~ 3cm x 2cm x 2 cm Posterior Neck Infected Sebacous Cyst Complications: None Transferred to: Recovery Room Condition: Good
[2025-05-19] MEDS: HYDROMORPHONE HCL 0.5 MG/0.5 ML INJ ONE (14:11)
[2025-05-19 14:18] VITALS: O2SAT 93
--- NOTE | 2025-05-19 15:55 | RAD REPORT ---
EXAMINATION: Bone Imaging Three Phase CLINICAL INDICATION: Wound to right foot. Foot pain TECHNIQUE: Three-phase bone scan of the feet obtained. Images obtained in perfusion, blood pool and d elayed sequences RADIOPHARMACEUTICAL: 26.9 mCi Tc-99m MDP was administered intravenously. COMPARISON: May 09, 2025 x-ray. FINDINGS: Perfusion and blood pole sequences demonstrate marked increased radiotracer activity to the medial ri ght forefoot. The delayed sequences demonstrate persistence of the abnormal radiotracer activity which is intense. The bony detail is suboptimal. The radiotracer uptake probably involves the first proximal phalanx. It may involve portions of the distal first metatarsal and first distal phalanx. This likely indicate s osteomyelitis IMPRESSION: Osteomyelitis first digit as described above. The first proximal phalanx likely involved. Portions of the first distal phalanx and distal aspect of the first metatarsal may also be involved.
--- NOTE | 2025-05-19 18:41 | CON ---
Date of Consultation: 05/10/2025 Brief History Of Present Illness: The patient is a 59-year-old man known to me with a past medical h istory of diabetes, hypertension, anxiety, depression, congestive heart failure, morbid obesity, neur opathy, left foot wound, chronic cirrhosis of the liver with ascites, peripheral vascular disease, hi story of stroke, gastric bypass who presents to the ER with complaints of abdominal pain predominantl y and some right foot pain with dorsal toe redness and pain had began 5 days prior to his arrival. H e had large volume ascites drainage on multiple occasions, came in with a 6 L drainage just prior to coming to the hospital and complains predominantly of abdominal pain. Past Medical History: As above. Allergies: CIPRO, PENICILLIN, ASPIRIN, FLU VACCINE. Home Medications: Include metformin, naproxen, lisinopril, atorvastatin, Lasix, hydrochlorothiazide, meclizine, Klor-Con, Protonix, Lyrica. Past Surgical History: Including above, he has a left great toe surgery and amputation of left secon d toe, bilateral knee surgery and gastric bypass as described. Social History: He denies smoking, alcohol, recreational drug use. Review of Systems: Ten-point review of systems other than HPI denies. Physical Examination: General: At the time of my examination, he is awake, alert, and oriented. Psychiatric: Appropriate, conversive. HEENT: Normocephalic. Sclerae are anicteric. Mucous membranes are moist. Oropharynx is clear. Neck: Supple without JVD. Chest: Normal expansion and excursion. Cardiovascular: Regular rate and rhythm. Pulmonary: Clear to auscultation bilaterally. Abdomen: Soft, but has a fluid shift consistent with an ascites. Extremities: He has redness of his great toe on the right foot cellulitis and superficial cellulitis is present. No drainable collections. Laboratory Data: Reveals a white blood cell count of 4.8, hemoglobin 8.6, hematocrit of 27.4, platel et count 142. He had an x-ray which was officially read as no definite osseous abnormality fifth pro ximal phalanx fracture not well assessed difficult to exclude fracture dislocation, . Assessment/plan: This is a 59-year-old male who comes in with ascites and foot pain. 1. IV fluid hydration. 2. Antibiotic coverage. 3. Mupirocin cream to the toe daily, wraps elevation compression garments. 4. I will discuss the possibility of surgical versus nonoperative management. We will proceed nonope rative management at this point. However, if it does not respond to medical management, we will proc eed with surgical intervention. I explained the risks, benefits, and alternatives to above-stated pl an. The patient agrees to proceed as indicated. Continue medical management. Volume ascites and __ medical doctor recommendations. SANDRA/MARIANA Voice ID: [id number] Report ID: [id number]
[2025-05-19] MEDS: Mupirocin NASAL 2 APPL/1 GM TUBE NAS SCH (21:05)
--- NOTE | 2025-05-19 21:21 | RAD REPORT ---
EXAM: Chest Single View HISTORY: 59 years Male PICC line placement/verification COMPARISON: 05/09/2025 FINDINGS: LUNGS/PLEURA: Linear opacities at the left lung base likely atelectasis. Airspace disease versus conf luence of vascular structures in the right lung base. CARDIAC/MEDIASTINUM: Stable size and configuration. UPPER ABDOMEN: No significant abnormality. BONES: No acute abnormality. LINES/TUBES/OTHER: Right subclavian approach PICC with tip likely overlying the proximal SVC is somew hat limited due to underpenetration. IMPRESSION: Limited by underpenetration but suspect PICC tip at the proximal SVC. Probable atelectasis at the left lung base. Airspace disease versus confluence of vascular structures in the right lung base.
--- NOTE | 2025-05-19 22:44 | PN ---
Subjective: The patient is lying in bed. No new acute event. Chart reviewed. Objective: Vital Signs: Temperature 97, pulse 93, respirations 14, blood pressure 130/61. Lungs: Basal crackles. Heart: S1, S2. Regular. Abdomen: Soft, nontender. Bowel sounds present. Extremities: Trace edema. Laboratory Data: Reviewed. Assessment And Plan: Right foot cellulitis, diabetic foot ulcer, thrombocytopenia, leukopenia, conge stive heart failure, cirrhosis of liver, diabetes mellitus and neuropathy, anemia of chronic disease, peripheral vascular disease, severe protein-calorie malnourishment. The patient to go for the neck surgical debridement for possible abscess formation. We will follow the patient as needed. NF/MODL Voice ID: [id number] Report ID: [id number]
--- NOTE | 2025-05-20 00:31 | OP ---
Date of Procedure: 05/19/2025 Surgeon: Ney Ny MD, Preoperative Diagnosis: Posterior neck infected sebaceous cyst. Postoperative Diagnosis: Posterior neck infected sebaceous cyst. Procedure Performed: Wide local excision of posterior neck infected sebaceous cyst. Anesthesia: General endotracheal plus local, 1% lidocaine. Estimated Blood Loss: Less than 5 cc. Specimens: Culture sent for both aerobic and anaerobic speciation, debridement of tissue. Findings: Approximately 3 cm x 2 cm x 2 cm posterior neck infected sebaceous cyst. Complications: None. Disposition: The patient was transferred to recovery room in good condition. Procedure In Detail: After informed consent was obtained, the patient was brought to the operating r oom, prepped and draped in the usual sterile fashion. I made an elliptical incision after appropriat rebecca anesthetizing the skin of the posterior neck in the midline down to subcutaneous tissues. Using electrocautery, I dissected down the parameters as described above, 3 cm x 2 cm x 2 cm including an i nfected ruptured cyst with abscess. This was cultured for both aerobic and anaerobic speciation, rashid ridement of tissue, sent off for pathologic examination. The area was copiously irrigated. Hemostas is was achieved with electrocautery. The wound was then packed with Vashe-soaked gauze and a sterile dressing was placed over top. The patient tolerated the procedure without incident or complication, transferred to PACU in good condition. All counts were correct at the end of the case. SANDRA/MARIANA Voice ID: [id number] Report ID: [id number]
[2025-05-20] MEDS: VANCOMYCIN 2 GM in NA CHLORIDE 0.9% 500 ML IVPB SCH (06:16)
--- NOTE | 2025-05-20 09:21 | P.PN ---
Date of Service: 05/20/25 Patient is a 59-year-old man known from prior interactions whereby he has a incision and drainage of a posterior neck cyst performed yesterday. He is doing well from this aspect. Additionally had a paracentesis on multiple occasions during this admission. He also noted to have a foot infection in the right great toe. There was osteomyelitis in this toe. He is also had a paracentesis on several occasions during this admission due to his history of cirrhosis. -I have offered surgical intervention for his osteomyelitis of the toe however he does not want any surgery for this at this time and continues to refuse surgery and would like to try long-term antibiotics with a PICC line to see if he can resolve this without any surgical intervention as he states he is already lost several toes before in the past as does not want to lose any other digits. I have explain the respites alternatives of this plan and stated that he can have a higher level amputation if he is not successful and that the wound can get exacerbated get worse and lead to significant more tissue loss and limb loss potentially however patient would like to proceed with nonoperative management and antibiotic treatment at this time to see if the osteomyelitis can resolve without surgical invention.
[2025-05-20 12:03] VITALS: BP 127/64; TEMP 97.4
--- NOTE | 2025-05-20 13:27 | P.PN ---
Date of Service: 05/20/25 subjective: VS stable. denied NVD. wbc wnl objective Temp Pulse Resp BP Pulse Ox 97.4 F 74 16 127/64 93 05/20/25 12:00 05/20/25 12:00 05/20/25 12:00 05/20/25 12:00 05/20/25 12:00 - Physical Exam General: Alert, Oriented x3, morbid Obese HEENT: Atraumatic, Normocephalic, PERRLA Neck: Supple Respiratory: Clear to auscultation Cardiovascular: Regular rate/rhythm, Normal S1 S2, Edema Capillary refill: <2 Seconds Gastrointestinal: Soft, BS present, ND, some mild discomfort on palpation Integumentary: right foot wound with dressing. right toe erythema and swelling labs: wbc 3.1,hgb 7.4, plt count 122, bun 14, cr 1, albumin 1.8 assessment and planning right foot cellulitis and OM of right toe diabetic foot ulcer Posterior neck sebaceous cyst s/p I&D 05/19 thrombocytopenia leukopenia CHF cirrhosis liver diabetes anemia of chronic disease peripheral vascular disease severe protein calorie malnourishment pt declined surgical intervention for his osteomyelitis of the toe. Patient understand risks would like to proceed with nonoperative management and antibiotic treatment at this time wound culture grew MRSA. continue vancomycin x 6 week. Pt is to follow up with Dr Ny outpatient after discharge. Patient unable to complete CT and MRI due to weight limit. Bone scan showed Osteomyelitis first digit. The first proximal phalanx likely involved. Portions of the first distal phalanx and distal aspect of the first metatarsal may also be involved. wound neck culture pending. recommend local wound care to right foot per surgeon will continue to monitor infection with wbc and fever trend case discussed and in agreement with Dr Long
[2025-05-20] MEDS ORDERED: AMINO ACIDS/PROTEIN HYDROLYS 30 ML LIQUID.PKT PO SCH (21:00)
== END 2025-05-20 16:38 | disposition home health service (06) | DRG 622 ==
LOC: ER 13:35 → ERHOLD 18:41 → 4TH 19:56
PROVIDERS: ADMIT Family Medicine; ATTEND Hospitalist
PROC: 02HV33Z Insertion of Infusion Device into Superior Vena Cava, Percutaneous Approach (ICD-10-PCS; 2025-05-09)
PROC: 0W9G3ZZ Drainage of Peritoneal Cavity, Percutaneous Approach (ICD-10-PCS; 2025-05-13)
PROC: 0JB40ZZ Excision of Right Neck Subcutaneous Tissue and Fascia, Open Approach (ICD-10-PCS; principal; 2025-05-19 12:30)
DX: E11.69 Type 2 diabetes mellitus with other specified complication (principal); E43 Unspecified severe protein-calorie malnutrition; L03.115 Cellulitis of right lower limb; E66.2 Morbid (severe) obesity with alveolar hypoventilation; Z68.43 Body mass index [BMI] 50.0-59.9, adult; R18.8 Other ascites; I50.32 Chronic diastolic (congestive) heart failure; Z68.42 Body mass index [BMI] 45.0-49.9, adult; D61.818 Other pancytopenia; M86.171 Other acute osteomyelitis, right ankle and foot; I11.0 Hypertensive heart disease with heart failure; L72.3 Sebaceous cyst; E83.42 Hypomagnesemia; E78.5 Hyperlipidemia, unspecified; K74.60 Unspecified cirrhosis of liver; K59.04 Chronic idiopathic constipation; D63.8 Anemia in other chronic diseases classified elsewhere; E11.40 Type 2 diabetes mellitus with diabetic neuropathy, unspecified; E11.51 Type 2 diabetes mellitus with diabetic peripheral angiopathy without gangrene; E11.621 Type 2 diabetes mellitus with foot ulcer; L97.519 Non-pressure chronic ulcer of other part of right foot with unspecified severity; F17.210 Nicotine dependence, cigarettes, uncomplicated; B95.62 Methicillin resistant Staphylococcus aureus infection as the cause of diseases classified elsewhere; Z88.6 Allergy status to analgesic agent; Z88.1 Allergy status to other antibiotic agents; Z88.0 Allergy status to penicillin; Z86.73 Personal history of transient ischemic attack (TIA), and cerebral infarction without residual deficits; Z90.49 Acquired absence of other specified parts of digestive tract; Z98.84 Bariatric surgery status; Z79.84 Long term (current) use of oral hypoglycemic drugs; Z79.899 Other long term (current) drug therapy; Z89.422 Acquired absence of other left toe(s)
CPT/HCPCS: 36415; 49083; 70360; 71045; 76705; 78315; 80048; 80053; 80076; 80202; 82140; 82607; 82947; 83540; 83690; 83735; 83880; 84100; 84145; 84484; 85025; 85044; 85610; 85730; 86140; 86850; 86900; 86901; 87070; 87075; 87077; 87186; 87205; 88304; 88305; 90715; 93005; 96365; 96367; 96372; 96375; 99285; A9503; J0330; J0692; J1100; J1171; J1650; J1815; J1938; J2003; J2250; J2270; J2405; J2704; J3010; J3370; J3475; J3590; J7030; J7040

== ENCOUNTER 2025-07-05 00:41 | Emergency (ER) | payer OTHER, MEDICAID ==
[2025-07-05] MEDS ORDERED: KETOROLAC 30 MG/ML INJ ONE (01:30)
[2025-07-05] MEDS ORDERED: ONDANSETRON 4 MG/2 ML VIAL ONE (01:30)
[2025-07-05] MEDS ORDERED: MORPHINE 4 MG/ML SYR ONE (01:31)
[2025-07-05] MEDS ORDERED: TDAP (DIPHTH,PERTUSS(ACELL),TET VAC) 0.5 ML VIAL IMVAC ONE (01:31)
--- NOTE | 2025-07-05 05:07 | RAD REPORT ---
EXAM: CT Chest, Abdomen and Pelvis Without Intravenous Contrast CLINICAL HISTORY: The patient is 59 years old and is Male; Chest pain. TECHNIQUE: Axial computed tomography images of the chest, abdomen and pelvis without intravenous co ntrast. Sagittal and coronal reformatted images were created and reviewed. This CT exam was performed using one or more of the following dose reduction techniques: automated exposure control, adjustment of the mA and/or kV according to patient size, and/or use of iterative reconstruction technique. COMPARISON: US Abdomen 06/12/2025, US Pelvis 06/12/2025, XR Chest 06/12/2025, CTA Chest 02/03/[address] Abdomen Pelvis 05/06/2019. FINDINGS: CHEST: Lungs and pleural spaces: Bilateral lower lobe linear atelectasis and/or scarring. No consolidation. No groundglass opacities suggest pneumonia. No significant effusion. Heart: Unremarkable. No cardiomegaly. No significant pericardial effusion. ABDOMEN: Liver: Nodular liver contour consistent with hepatic cirrhosis. Gallbladder and bile ducts: Cholecystectomy. No ductal dilation. Pancreas: Unremarkable. No ductal dilation. Spleen: Splenomegaly, 20.9 cm in craniocaudal dimension. Adrenals: Unremarkable. No mass. Kidneys and ureters: No nephrolithiasis or hydronephrosis. Stomach and bowel: No bowel dilatation or obstruction. No bowel wall thickening. No gastric wall thickening. PELVIS: Appendix: No findings to suggest acute appendicitis. Bladder: Unremarkable. No stones. Reproductive: Unremarkable as visualized. CHEST, ABDOMEN and PELVIS: Intraperitoneal space: Moderate ascites. No free air. Bones/joints: Multilevel degenerative changes in the lumbar spine with moderate to marked central canal stenosis from T12-L1 to L2-3. No acute fracture visualized. Degenerative changes in the hips. No dislocation. Multilevel vertebral Schmorl's nodes. Multilevel marginal and bridging osteophytes in the thoracic spine. No compression fracture. Soft tissues: Unremarkable. Vasculature: Unremarkable. No aortic aneurysm. Lymph nodes: Unremarkable. No enlarged lymph nodes. IMPRESSION: 1. Hepatic cirrhosis. Splenomegaly. Moderate ascites. 2. Multilevel degenerative changes in the lumbar spine with moderate to marked central canal stenos is from T12-L1 to L2-3. No acute fracture visualized. 3. No acute cardiopulmonary findings visualized. 4. Additional non-emergent findings as above. Electronically signed by: Swathi Olivarez MD 07/05/2025 05:02 AM CDT RP V2 Due to temporary technical issues with the [employer] reporting system, reports are being you d by the in-house radiologist without review as a courtesy to ensure prompt reporting the interpreting radiologist is fully responsible for the content of the report. Transcribed Date/Time: 07/05/2025 5:07 AM
[2025-07-05] MEDS ORDERED: HYDROCODONE/APAP 5/325 MG TAB ONE (05:26)
--- NOTE | 2025-07-05 05:29 | ER ---
Nurse's Notes [facility] Name: Colby Tilley Jr Age: 59 yrs Sex: Male : 1965 Arrival Date: 07/05/2025 Time: 00:41 Bed 5 Private MD: Diagnosis: Acute left knee contusion, acute left knee abrasion, acute right knee contusion, acute fall at home;Acute left flank tenderness, left abdominal wall contusion,;Acute avulsion of the left great toenail Presentation: 07/05 00:51 Chief complaint: EMS states: tripped and fell at home, c/o pain to left hip, bilateral vc1 knees, left lumbar and left great toe (toe nail ripped half way off). Coronavirus screen: Client denies travel out of the [place] in the last 14 days. At this time, the client does not indicate any symptoms associated with coronavirus-19. Ebola Screen: Patient negative for fever greater than or equal to 101.5 degrees Fahrenheit, and additional compatible Ebola Virus Disease symptoms Patient denies exposure to infectious person. Patient denies travel to an Ebola-affected area in the 21 days before illness onset. No symptoms or risks identified at this time. Initial Sepsis Screen: Does the patient meet any 2 criteria? No. Patient's initial sepsis screen is negative. Does the patient have a suspected source of infection? No. Patient's initial sepsis screen is negative. Risk Assessment: Do you want to hurt yourself or someone else? Patient reports no desire to harm self or others. Onset of symptoms was July 05, 2025. 00:51 Method Of Arrival: EMS: [facility] vc1 00:51 Acuity: ZENAIDA 3 vc1 Triage Assessment: 01:05 General: Appears in no apparent distress. uncomfortable, obese, Behavior is calm, vc1 cooperative, appropriate for age. Pain: Complains of pain in right knee and left knee left hip and left lumbar, left great toe Pain does not radiate. Pain currently is 8 out of 10 on a pain scale. Historical: - Allergies: 00:54 Anesthesia; vc1 00:54 Aspirin; vc1 00:54 Ciprofloxacin; vc1 00:54 Lyrica; vc1 00:54 PENICILLINS; vc1 00:54 PROPOFOL (sensitive); vc1 00:54 flu vacc tv live 2024(2-49yrs); vc1 - Home Meds: 00:54 atorvastatin 20 mg oral tablet [Active]; vc1 01:00 Lasix 40 mg Oral tablet daily [Active]; hydrochlorothiazide 12.5 mg Oral tablet daily vc1 [Active]; Klor-Con 10 10 mEq Oral tablet, extended release [Active]; lisinopril 20 mg Oral tablet 1 tab twice a day [Active]; metformin 1,000 mg Oral tablet 2 times per day [Active]; Metoprolol Tartrate Oral [Active]; paroxetine HCl 40 mg oral tablet daily [Active]; - PMHx: 00:54 cirrhosis of liver; Diabetes - NIDDM; Hypertension; Left foot wound; leg swelling vc1 (Unknown); neuropathy (Unknown); PVD; stroke (PVD); - PSHx: 00:54 Cholecystectomy; Gastric Bypass; vc1 - Immunization history:: Client reports receiving the 2nd dose of the Covid vaccine, Flu vaccine is not up to date. - Infectious Disease History:: Denies. - Social history:: Smoking status: Patient denies any tobacco usage or history of. - Family history:: not pertinent. Screenin:04 [facility] ED Fall Risk Assessment (Adult) History of falling in the last 3 months, vc1 including since admission No falls in past 3 months (0 pts) Confusion or Disorientation No (0 pts) Intoxicated or Sedated No (0 pts) Impaired Gait No (0 pts) Mobility Assist Device Used No (0 pt) Altered Elimination No (0 pt) Score/Fall Risk Level 0 - 2 = Low Risk Oriented to surroundings, Maintained a safe environment, Educated pt \T\ family on fall prevention, incl call for assistance when getting out of bed, Assessed \T\ reinforced patient's understanding of fall precautions, Hourly rounding (assess needs \T\ fall precautionary measures) done, Used ambulatory aids as needed (educated on \T\ assisted with). Abuse screen: Denies threats or abuse. Nutritional screening: No deficits noted. Tuberculosis screening: No symptoms or risk factors identified. Assessment: 02:28 General: Appears in no apparent distress. Behavior is calm, cooperative. Neuro: Level kd3 of Consciousness is awake, alert, obeys commands, Oriented to person, place, time, situation. Cardiovascular: Capillary refill < 3 seconds Patient's skin is warm and dry. Respiratory: Airway is patent Trachea midline Respiratory effort is even, unlabored, Respiratory pattern is regular, symmetrical. 03:30 Reassessment: Patient and/or family updated on plan of care and expected duration. Pain kd3 level reassessed. Patient is alert, oriented x 3, equal unlabored respirations, skin warm/dry/pink. Patient states feeling better. Patient states symptoms have improved. 04:30 Reassessment: Patient and/or family updated on plan of care and expected duration. Pain kd3 level reassessed. Patient is alert, oriented x 3, equal unlabored respirations, skin warm/dry/pink. 06:04 General: PT DISCHARGE DELAYED DUE TO THE PATIENT'S RIDE ARRIVING AT 0715. kd3 Vital Signs: 00:51 BP 113 / 74; Pulse 96; Resp 18; Temp 98.3; Pulse Ox 94% ; Weight 180.08 kg; Height 6 vc1 ft. 8 in. ; Pain 8/10; 02:28 BP 127 / 85; Pulse 92; Resp 19; Pulse Ox 96% on R/A; kd3 04:18 BP 114 / 70; Pulse 81; Resp 19; Pulse Ox 94% on R/A; kd3 06:06 BP 125 / 80; Pulse 92; Resp 19; Pulse Ox 98% on R/A; kd3 00:51 Body Mass Index 43.61 (180.08 kg, 203.2 cm) vc1 00:51 Pain Scale: Adult vc1 Chucho Coma Score: 23:11 Eye Response: spontaneous(4). Motor Response: obeys commands(6). Verbal Response: sp4 oriented(5). Total: 15. ED Course: 00:51 Patient arrived in ED. vc1 00:54 Triage completed. vc1 00:59 Isidoro Burgos MD is Attending Physician. sp4 01:00 Arm band placed on right wrist. vc1 01:04 Patient has correct armband on for positive identification. Bed in low position. Call vc1 light in reach. Provided Education on: Plan of care. Pulse ox on. NIBP on. 01:16 Haven Milner, RN is Primary Nurse. kd3 01:27 Inserted saline lock: 24 gauge in right forearm, using aseptic technique. Blood kd3 collected. Flushed with 10 mL NS. 01:37 Knee Left 3 View XRAY In Process Unspecified. EDMS 01:37 Knee Right 3 View XRAY In Process Unspecified. EDMS 01:57 CT Chest Abdomen Pelvis W/O Contrast In Process Unspecified. EDMS 02:07 CT Head C Spine In Process Unspecified. EDMS 06:41 No provider procedures requiring assistance completed. IV discontinued, intact, kd3 bleeding controlled, No redness/swelling at site. Pressure dressing applied. Administered Medications: 01:45 Drug: Ketorolac IVP 30 mg IVP once Route: IVP; Site: right forearm; ha1 06:07 Follow up: Response: No adverse reaction; Pain is decreased kd3 01:45 Drug: Ondansetron IVP 8 mg IVP once; over 2 minutes Route: IVP; Site: right forearm; ha1 06:07 Follow up: Response: No adverse reaction; Nausea is decreased kd3 01:45 Drug: Boostrix Tdap IM 0.5 ml IM once; as a single dose Route: IM; Site: right deltoid; ha1 06:07 Follow up: Response: No adverse reaction kd3 01:45 Drug: Methocarbamol PO 1500 mg PO once Route: PO; ha1 06:06 Follow up: Response: No adverse reaction; Pain is decreased kd3 01:47 Drug: morphine IVP or IV 4 mg IVP once over 4 mins Route: IVP; Infused Over: 4 mins; ha1 Site: right forearm; 06:07 Follow up: Response: No adverse reaction; Pain is decreased kd3 05:28 Drug: HYDROcodone-acetaminophen PO 5 mg-325 mg 2 tabs PO once Route: PO; kd3 06:06 Follow up: Response: No adverse reaction; Pain is decreased kd3 Medication: 01:08 VIS not applicable for this client. vc1 Outcome: 05:28 Discharge ordered by . sp4 06:41 Discharged to home with family, kd3 06:41 Condition: stable 06:41 Discharge instructions given to patient, Instructed on discharge instructions, follow up and referral plans. 06:42 Patient left the ED. kd3 Signatures: Dispatcher [employer] EDMS Haven Milner RN RN kd3 Latanya oDwd RN RN vc1 Dena Johnson RN RN ha1 Isidoro Burgos MD MD sp4 Corrections: (The following items were deleted from the chart) 02:01 01:45 morphine IVP or IV 4 mg IVP in right forearm over 4 mins ha1 ha1
--- NOTE | 2025-07-05 05:29 | EDPHYS ---
Physician Documentation [facility] Name: Colby Tilley Jr Age: 59 yrs Sex: Male : 1965 Arrival Date: 07/05/2025 Time: 00:41 Bed 5 Private MD: ED Physician Isidoro Burgos HPI: 07/05 04:33 This 59 yrs old Male presents to ER via EMS with complaints of Fall Injury. 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 Patient has a difficult time with ambulation he uses walker for ambulation. Patient presents today because he fell onto the left side at home by accident cords and avulsion of the left great toenail. Patient now complains of left flank pain left toenail pain. Otherwise no problem. Historical: - Allergies: 00:54 Anesthesia; vc1 00:54 Aspirin; vc1 00:54 Ciprofloxacin; vc1 00:54 Lyrica; vc1 00:54 PENICILLINS; vc1 00:54 PROPOFOL (sensitive); vc1 00:54 flu vacc tv live 2024(2-49yrs); vc1 - Home Meds: 00:54 atorvastatin 20 mg oral tablet [Active]; vc1 01:00 Lasix 40 mg Oral tablet daily [Active]; hydrochlorothiazide 12.5 mg Oral tablet daily vc1 [Active]; Klor-Con 10 10 mEq Oral tablet, extended release [Active]; lisinopril 20 mg Oral tablet 1 tab twice a day [Active]; metformin 1,000 mg Oral tablet 2 times per day [Active]; Metoprolol Tartrate Oral [Active]; paroxetine HCl 40 mg oral tablet daily [Active]; - PMHx: 00:54 cirrhosis of liver; Diabetes - NIDDM; Hypertension; Left foot wound; leg swelling vc1 (Unknown); neuropathy (Unknown); PVD; stroke (PVD); - PSHx: 00:54 Cholecystectomy; Gastric Bypass; vc1 - Immunization history:: Client reports receiving the 2nd dose of the Covid vaccine, Flu vaccine is not up to date. - Infectious Disease History:: Denies. - Social history:: Smoking status: Patient denies any tobacco usage or history of. - Family history:: not pertinent. ROS: 23:11 Constitutional: Negative for fever, chills, and weight loss, positive left flank pain sp4 positive left abdominal pain, positive left great toenail avulsion, 23:11 All other systems are negative, Exam: 23:11 Constitutional: This is a well developed, well nourished patient who is awake, alert, sp4 physically debilitated male who is obese, no acute distress Head/Face: Normocephalic, atraumatic. Eyes: Pupils equal round and reactive to light, extra-ocular motions intact. Lids and lashes normal. Conjunctiva and sclera are not injected. Cornea within normal limits. Periorbital areas with no swelling, redness, or edema. ENT: Nares patent. No nasal discharge, no septal abnormalities noted. Tympanic membranes are normal and external auditory canals are clear. Oropharynx with no redness, swelling, or masses, exudates, or evidence of obstruction, uvula midline. Mucous membranes moist. Neck: Trachea midline, no thyromegaly or masses palpated, and no cervical lymphadenopathy. Supple, full range of motion without nuchal rigidity, or vertebral point tenderness. Chest/axilla: Normal chest wall appearance and motion. Nontender with no deformity. No lesions are appreciated. Cardiovascular: Regular rate and rhythm with a normal S1 and S2. No gallops, murmurs, or rubs. No pulse deficits. Respiratory: Lungs have equal breath sounds bilaterally, clear to auscultation and percussion. No rales, rhonchi or wheezes noted. No increased work of breathing, no retractions or nasal flaring. Abdomen/GI: Soft, with normal bowel sounds. No distension or tympany. No guarding or rebound. No evidence of tenderness throughout. Back: No spinal tenderness. No costovertebral tenderness. Skin: Warm, dry with normal turgor. Normal color with no rashes, no lesions, and no evidence of cellulitis. MS/ Extremity: Pulses equal, no cyanosis. Neurovascular intact. Full, normal range of motion. Positive left great toenail avulsion. Neuro: Awake and alert, GCS 15, oriented to person, place, time, and situation. Cranial nerves II-XII grossly intact. Motor strength 5/5 in all extremities. Sensory grossly intact. Psych: Awake, alert, with orientation to person, place and time. Behavior, mood, and affect are within normal limits Vital Signs: 00:51 BP 113 / 74; Pulse 96; Resp 18; Temp 98.3; Pulse Ox 94% ; Weight 180.08 kg; Height 6 vc1 ft. 8 in. ; Pain 8/10; 02:28 BP 127 / 85; Pulse 92; Resp 19; Pulse Ox 96% on R/A; kd3 04:18 BP 114 / 70; Pulse 81; Resp 19; Pulse Ox 94% on R/A; kd3 06:06 BP 125 / 80; Pulse 92; Resp 19; Pulse Ox 98% on R/A; kd3 00:51 Body Mass Index 43.61 (180.08 kg, 203.2 cm) vc1 00:51 Pain Scale: Adult vc1 Chucho Coma Score: 23:11 Eye Response: spontaneous(4). Motor Response: obeys commands(6). Verbal Response: sp4 oriented(5). Total: 15. MDM: 01:00 Medical Screening Exam initiated sp4 04:34 ED course: EXAM: XR Right Knee, 3 Views CLINICAL HISTORY: The patient is 59 years old sp4 and is Male; PAIN TECHNIQUE: Three views of the right knee. COMPARISON: No relevant prior studies available. FINDINGS: BONES/JOINTS: Moderate tricompartmental degenerative changes most severe in the patellofemoral joint. Small joint effusion or synovitis. No acute fracture. No dislocation. SOFT TISSUES: Mild soft tissue edema. VASCULATURE: Scattered vascular calcifications. OTHER FINDINGS: 3 views. IMPRESSION: 1. Mild soft tissue edema. 2. Small joint effusion or synovitis. 3. Chronic appearing osseous findings. Consider MRI if symptoms persist. . 04:34 ED course: COMPARISON: No relevant prior studies available. FINDINGS: BONES/JOINTS: sp4 Advanced tricompartmental degenerative changes. Small area of osteochondral impaction deformity of the periphery of the lateral femoral condyle favored to be chronic. No acute fracture. No dislocation. SOFT TISSUES: Moderate soft tissue edema. VASCULATURE: Scattered vascular calcifications. OTHER FINDINGS: 3 views. IMPRESSION: 1. Moderate soft tissue edema. 2. Chronic appearing osseous findings. Consider MRI if symptoms persist. . 05:24 ED course: FINDINGS: PARENCHYMA: No acute arterial territory infarct. No acute sp4 intracranial hemorrhage. No mass effect or midline shift. VENTRICLES: Normal in size for patient's age. EXTRA-AXIAL: No focal collection. Patent basilar cisterns. ORBITS: Unremarkable. BONES: No acute finding. PARANASAL SINUSES/MASTOIDS/MIDDLE EARS: Clear. SOFT TISSUES: No acute findings. OTHER: None. IMPRESSION: No acute intracranial abnormality. . ED course: FINDINGS: CHEST: Lungs and pleural spaces: Bilateral lower lobe linear atelectasis and/or scarring. No consolidation. No groundglass opacities suggest pneumonia. No significant effusion. Heart: Unremarkable. No cardiomegaly. No significant pericardial effusion. ABDOMEN: Liver: Nodular liver contour consistent with hepatic cirrhosis. Gallbladder and bile ducts: Cholecystectomy. No ductal dilation. Pancreas: Unremarkable. No ductal dilation. Spleen: Splenomegaly, 20.9 cm in craniocaudal dimension. Adrenals: Unremarkable. No mass. Kidneys and ureters: No nephrolithiasis or hydronephrosis. Stomach and bowel: No bowel dilatation or obstruction. No bowel wall thickening. No gastric wall thickening. PELVIS: Appendix: No findings to suggest acute appendicitis. Bladder: Unremarkable. No stones. Reproductive: Unremarkable as visualized. CHEST, ABDOMEN and PELVIS: Intraperitoneal space: Moderate ascites. No free air. Bones/joints: Multilevel degenerative changes in the lumbar spine with moderate to marked central canal stenosis from T12-L1 to L2-3. No acute fracture visualized. Degenerative changes in the hips. No dislocation. Multilevel vertebral Schmorl's nodes. Multilevel marginal and bridging osteophytes in the thoracic spine. No compression fracture. Soft tissues: Unremarkable. Vasculature: Unremarkable. No aortic aneurysm. Lymph nodes: Unremarkable. No enlarged lymph nodes. IMPRESSION: 1. Hepatic cirrhosis. Splenomegaly. Moderate ascites. 2. Multilevel degenerative changes in the lumbar spine with moderate to marked central canal stenosis from T12-L1 to L2-3. No acute fracture visualized. 3. No acute cardiopulmonary findings visualized. 4. Additional non-emergent findings as above. . 23:11 Differential diagnosis: abrasion, closed head injury, contusion, fracture, laceration, sp4 multiple trauma, sprain, strain. Data reviewed: vital signs, nurses notes, radiologic studies, CT scan, plain films. Consideration of Admission/Observation Escalation of care including admission/observation considered. ED course: Imaging negative for acute traumatic injury. Patient stable for discharge home.. 07/05 00:52 Order name: Knee Left 3 View XRAY sb4 07/05 00:52 Order name: Knee Right 3 View XRAY sb4 10/07 01:15 Order name: CT Chest Abdomen Pelvis W/O Contrast sp4 07/05 01:16 Order name: CT Head C Spine sp4 07/05 01:17 Order name: IV Saline Lock; Complete Time: sp4 07/05 01:17 Order name: Labs collected and sent; Complete Time: sp4 Administered Medications: 01:45 Drug: Ketorolac IVP 30 mg IVP once Route: IVP; Site: right forearm; ha1 06:07 Follow up: Response: No adverse reaction; Pain is decreased kd3 01:45 Drug: Ondansetron IVP 8 mg IVP once; over 2 minutes Route: IVP; Site: right forearm; ha1 06:07 Follow up: Response: No adverse reaction; Nausea is decreased kd3 01:45 Drug: Boostrix Tdap IM 0.5 ml IM once; as a single dose Route: IM; Site: right deltoid; ha1 06:07 Follow up: Response: No adverse reaction kd3 01:45 Drug: Methocarbamol PO 1500 mg PO once Route: PO; ha1 06:06 Follow up: Response: No adverse reaction; Pain is decreased kd3 01:47 Drug: morphine IVP or IV 4 mg IVP once over 4 mins Route: IVP; Infused Over: 4 mins; ha1 Site: right forearm; 06:07 Follow up: Response: No adverse reaction; Pain is decreased kd3 05:28 Drug: HYDROcodone-acetaminophen PO 5 mg-325 mg 2 tabs PO once Route: PO; kd3 06:06 Follow up: Response: No adverse reaction; Pain is decreased kd3 Disposition: 23:11 Chart complete. sp4 Disposition Summary: 07/05/25 05:28 Discharge Ordered Notes: Location: Home sp4 Problem: new sp4 Symptoms: have improved sp4 Condition: Stable sp4 Diagnosis - Acute left knee contusion, acute left knee abrasion, acute right knee contusion, sp4 acute fall at home - Acute left flank tenderness, left abdominal wall contusion, sp4 - Acute avulsion of the left great toenail sp4 Followup: sp4 - With: Private Physician - When: 7 - 10 days - Reason: Recheck today's complaints Discharge Instructions: - Discharge Summary Sheet sp4 - Knee Sprain, Adult, [id number] sp4 Forms: - Patient Portal Instructions sp4 Prescriptions: - meloxicam 15 mg Oral tablet - take 1 tablet ORAL route daily PRN pain; 30 tablet; Refills: 0, Product sp4 Selection Permitted - Cyclobenzaprine 10 mg Oral tablet - take 1 tablet ORAL route every 8 hours As needed PRN muscle soreness; 60 sp4 tablet; Refills: 0, Product Selection Permitted - Tramadol 50 mg Oral tablet - take 1 tablet ORAL route every 8 hours as needed; 30 tablet; Refills: 0, sp4 Product Selection Permitted Signatures: Dispatcher [employer] EDMS Haven Milner, RN RN kd3 Latanya Dowd RN RN vc1 Dena Johnson, RN RN ha1 Isidoro Burgos MD MD sp4 Corrections: (The following items were deleted from the chart) 00:53 00:53 Knee Left 3 View+RAD.RAD.BRZ ordered. EDMS EDMS 00:53 00:53 Knee Right 3 View+RAD.RAD.BRZ ordered. EDMS EDMS 00:53 00:53 Spine Lumbar Wo Con+CT.RAD.BRZ ordered. EDMS EDMS 01:21 00:53 Pelvis Wo Cont+CT.RAD.BRZ ordered. EDMS EDMS
--- NOTE | 2025-07-05 05:52 | RAD REPORT ---
CT HEAD WITHOUT CONTRAST INDICATION: Head. COMPARISON: None TECHNIQUE: CT images of the head were obtained without contrast. Multiplanar reformats were provided. Dose lowering techniques such as automated exposure control, iterative reconstruction, and mA and/or kV adjustment for patient size was utilized for this examination. FINDINGS: PARENCHYMA: No acute arterial territory infarct. No acute intracranial hemorrhage. No mass effect or midline shift. VENTRICLES: Normal in size for patient's age. EXTRA-AXIAL: No focal collection. Patent basilar cisterns. ORBITS: Unremarkable. BONES: No acute finding. PARANASAL SINUSES/MASTOIDS/MIDDLE EARS: Clear. SOFT TISSUES: No acute findings. OTHER: None. IMPRESSION: No acute intracranial abnormality. Electronically signed by: Kaylah Yeh MD 07/05/2025 05:10 AM CDT Due to temporary technical issues with the PACS/[employer] reporting system, reports are being you d by the in-house radiologist without review as a courtesy to ensure prompt reporting the interpreting radiologist is fully responsible for the content of the report. Transcribed Date/Time: 07/05/2025 5:52 AM
--- NOTE | 2025-07-05 06:07 | RAD REPORT ---
EXAM: XR Right Knee, 3 Views CLINICAL HISTORY: The patient is 59 years old and is Male; PAIN TECHNIQUE: Three views of the right knee. COMPARISON: No relevant prior studies available. FINDINGS: BONES/JOINTS: Moderate tricompartmental degenerative changes most severe in the patellofemoral alonso int. Small joint effusion or synovitis. No acute fracture. No dislocation. SOFT TISSUES: Mild soft tissue edema. VASCULATURE: Scattered vascular calcifications. OTHER FINDINGS: 3 views. IMPRESSION: 1. Mild soft tissue edema. 2. Small joint effusion or synovitis. 3. Chronic appearing osseous findings. Consider MRI if symptoms persist. Electronically signed by: Albino Sterling MD 07/05/2025 03:55 AM CDT Due to temporary technical issues with the PACS/[employer] reporting system, reports are being you d by the in-house radiologist without review as a courtesy to ensure prompt reporting the interpreting radiologist is fully responsible for the content of the report. Transcribed Date/Time: 07/05/2025 6:07 AM
--- NOTE | 2025-07-05 06:08 | RAD REPORT ---
EXAM: XR Left Knee, 3 Views CLINICAL HISTORY: The patient is 59 years old and is Male; PAIN TECHNIQUE: Three views of the left knee. COMPARISON: No relevant prior studies available. FINDINGS: BONES/JOINTS: Advanced tricompartmental degenerative changes. Small area of osteochondral impac tion deformity of the periphery of the lateral femoral condyle favored to be chronic. No acute fracture. No dislocation. SOFT TISSUES: Moderate soft tissue edema. VASCULATURE: Scattered vascular calcifications. OTHER FINDINGS: 3 views. IMPRESSION: 1. Moderate soft tissue edema. 2. Chronic appearing osseous findings. Consider MRI if symptoms persist. Electronically signed by: Albino Sterling MD 07/05/2025 03:54 AM CDT RP Due to temporary technical issues with the PACS/[employer] reporting system, reports are being you d by the in-house radiologist without review as a courtesy to ensure prompt reporting the interpreting radiologist is fully responsible for the content of the report. Transcribed Date/Time: 07/05/2025 6:07 AM
[2025-07-05 06:46] VITALS: TEMP 98.3
[2025-07-05 06:50] VITALS: BP 125/80; O2SAT 98
== END 2025-07-05 06:42 | disposition home or self-care (01) ==
LOC: ER 00:41
DX: S80.212A Abrasion, left knee, initial encounter (principal); S80.01XA Contusion of right knee, initial encounter; S91.202A Unspecified open wound of left great toe with damage to nail, initial encounter; W18.30XA Fall on same level, unspecified, initial encounter; Y92.009 Unspecified place in unspecified non-institutional (private) residence as the place of occurrence of the external cause
CPT/HCPCS: 70450; 71250; 72125; 74176; 73562 ×2; 90715; 96375; 96372; 96374; 99284; J1885; J2405